=== PATIENT | male | born 1955 | race Caucasian/White ===

== ENCOUNTER 2017-01-02 20:00 | Inpatient (IN) | payer MEDICARE ==
[~2017-01-02] VITALS: Ht 177.8 cm; Wt 105.0 kg
[~2017-01-02 20:00] MED LIST: APIX5TAB PO; ASPI325T PO; CARV3.12 PO; CLON0.5T PO; DULO60 PO; FERR324T4 PO; FURO1TAB93 PO; LISI-357 PO; METF500 PO; MULT-65 PO; NITR0.4S SL; OMEG5CAP PO; PIOG45TA3 PO; SIMV40 PO; SPIR25TA PO
[2017-01-02 20:11] VITALS: BP 113/66; PULSE 81; RESP 20; TEMP 97.9; O2SAT 97
--- NOTE | 2017-01-02 20:38 | PD ---
HPI Chief Complaint: Respiratory Symptoms Time Seen by Provider: 20:32 Travel History International Travel<30 days: No Contact w/Intl Traveler<30days: No Traveled to known affect area: No History of Present Illness HPI 61-year-old male complains of shortness of breath for about 3-4 days associated with dyspnea on exertion and orthopnea. He also reports wheezing. He has COPD and CHF. He takes Lasix 80 mg and spironolactone 40 mg daily. He reports strict compliance with medications as well as dietary guidelines and water restriction. He notes some redness along the left foot. Previously a similar redness appeared on the right foot however resolved spontaneously. He follows with Dr. Lois salazar and Dr. Lerner. He has had a CABG. He also has diabetes hypertension and hyperlipidemia. Six months ago he quite smoking and started vaping instead. PFSH Past Medical History Hx Anticoagulant Therapy: Yes (ASA) Asthma: No Atrial Fibrillation: Yes Blood Disorders: No Anxiety: Yes Depression: Yes Heart Rhythm Problems: Yes (HX OF V TACH WITH CARDIAC CATHS REQUIRING LIDOCAINE ) Cancer: No Cardiovascular Problems: Yes (CHF, AFIB ) High Cholesterol: Yes Chemotherapy: No Chest Pain: Yes Congestive Heart Failure: Yes COPD: No Cerebrovascular Accident: No Coronary Artery Disease: Yes Diabetes: Yes Endocrine: Yes (DIABETES) Gastrointestinal Disorders: Yes (GERD) GERD: No Glaucoma: No Genitourinary: No Hepatitis: No Hiatal Hernia: No Hypertension: Yes Immune Disorder: No Musculoskeletal: No Neurologic: No Psychiatric: Yes Respiratory: No Migraines: No Myocardial Infarction: Yes Radiation Therapy: No Renal Failure: No Seizures: No Sleep Apnea: No Thyroid Disease: No Ulcer: No Past Surgical History Abdominal Surgery: No AICD: No Arteriovenous Shunt: No Body Medical Devices: CARDIAC STENTS , current BIV ICD Cardiac Surgery: Yes (CABG x4 2000, STENTS X3 2005, STENTS X'S 1 2006 AND 2010) Coronary Artery Bypass Graft: Yes (QUAD) Coronary Stent: Yes (X 7) Ear Surgery: No Endocrine Surgery: No Eye Surgery: No Genitourinary Surgery: No Insulin Pump: No Joint Replacement: No Oral Surgery: Yes (TEETH REMOVED) Pacemaker: No Thoracic Surgery: Yes (CABG "02") Other Surgery: Yes Social History Alcohol Use: No Tobacco Use: Yes (1 PPD; STATES RECENTLY QUIT) Substance Use: No Allergies-Medications (Allergen,Severity, Reaction): Coded Allergies: Flexeril (Verified Allergy, Severe, Flushing, 01/02/17) REDNESS Lisinopril (Verified Allergy, Unknown, Swelling, 01/02/17) ANGIOEDEMA Reported Meds & Prescriptions Reported Meds & Active Scripts Active Reported Nitrostat SL (Nitroglycerin) 0.4 Mg Subl 0.4 Mg SL DIRECTED PRN 1 tablet under the tongue as needed for chest pain. Repeat every 5 minutes for a total of 3 DOSES or call 911 if NO relief. Clonazepam 0.5 Mg Tab 0.5 Mg PO BID Levothyroxine (Levothyroxine Sodium) 25 Mcg Tab 25 Mcg PO DAILY Aldactone (Spironolactone) 25 Mg Tab 25 Mg PO BIDPC Gabapentin 100 Mg Cap 100 Mg PO QID Carvedilol 6.25 Mg Tab 6.25 Mg PO DAILY Glipizide 5 Mg Tab 5 Mg PO DAILY Take 30 minutes before a meal Krill Oil 500 Mg Capsule 500 Mg PO DAILY Multivitamins (Multivitamin) 1 Each Tab.chew 1 Tab PO DAILY Aspirin 325 Mg Tab 325 Mg PO DAILY Ferosul (Ferrous Sulfate) 325 Mg Tablet 1 Tab PO BID Furosemide 40 Mg Tab 40 Mg PO BID Citalopram (Citalopram Hydrobromide) 40 Mg Tab 40 Mg PO DAILY Zocor (Simvastatin) 40 Mg Tab 40 Mg PO DAILY Pioglitazone (Pioglitazone HCl) 45 Mg Tab 45 Mg PO DAILY Losartan (Losartan Potassium) 25 Mg Tab 25 Mg PO DAILY Metformin (Metformin HCl) 500 Mg Tab 500 Mg PO TIDPC With meals Review of Systems Except as stated in HPI: all other systems reviewed are Neg General / Constitutional: No: Fever Respiratory: Positive: Shortness of Breath, Wheezing Physical Exam Narrative GENERAL: Well-nourished 61-year-old male, mild distress SKIN: Warm and dry. Minimal erythema about the dorsum and toes of the left foot. There is minimal erythema about the surgical incision site from vein harvesting from a CABG surgery along the left lower leg as well. HEAD: Atraumatic. Normocephalic. EYES: Pupils equal and round. No scleral icterus. No injection or drainage. ENT: No nasal bleeding or discharge. Mucous membranes pink and moist. NECK: Trachea midline. No JVD. CARDIOVASCULAR: Regular rate and rhythm. RESPIRATORY: Minimal tachypnea present bilaterally. Wheezing present bilaterally. GASTROINTESTINAL: Abdomen soft, non-tender, nondistended. Hepatic and splenic margins not palpable. MUSCULOSKELETAL: Extremities without clubbing, cyanosis minimal edema about the bilateral lower extremities with erythema on the left side. 2+ dorsalis pedis bilaterally. NEUROLOGICAL: Awake and alert. No obvious cranial nerve deficits. Motor grossly within normal limits. Five out of 5 muscle strength in the arms and legs. Normal speech. PSYCHIATRIC: Appropriate mood and affect; insight and judgment normal. Data Data Last Documented VS Vital Signs Date Time Temp Pulse Resp B/P Pulse Ox O2 Delivery O2 Flow Rate FiO2 01/02/17 21:51 98.5 75 20 105/67 98 Nasal Cannula 2 Vital signs reviewed Orders Complete Blood Count With Diff (01/02/17 20:37) Basic Metabolic Panel (Bmp) (01/02/17 20:37) B-Type Natriuretic Peptide (01/02/17 20:37) Ckmb (Isoenzyme) Profile (01/02/17 20:37) Troponin I (01/02/17 20:37) Iv Access Insert/Monitor (01/02/17 20:37) Electrocardiogram (01/02/17 20:37) Ecg Monitoring (01/02/17 20:37) Oximetry (01/02/17 20:37) Oxygen Administration (01/02/17 20:37) Chest, Single Ap (01/02/17 20:37) Sodium Chloride 0.9% Flush (Ns Flush) (01/02/17 20:45) Albuterol-Ipratropium Neb (Duoneb Neb) (01/02/17 20:45) Blood Culture (01/02/17 21:29) Ceftriaxone Inj (Rocephin Inj) (01/02/17 21:30) Azithromycin Inj (Zithromax Inj) (01/02/17 21:30) Furosemide Inj (Lasix Inj) (01/02/17 21:30) Vancomycin Inj (Vancomycin Inj) (01/02/17 21:45) Us Leg Venous Doppler Bilat (01/02/17 ) Admit To Inpatient (01/02/17 ) Vital Signs (Adult) Q4H (01/02/17 21:46) Activity Oob With Assistance (01/02/17 21:46) Full Decator Operator / Telemetry .CONTINUOUS (01/02/17 21:46) Intake + Output SHREE.QSHIFT (01/02/17 21:46) Diet Heart Healthy (01/03/17 Breakfast) Sodium Chloride 0.9% Flush (Ns Flush) (01/02/17 22:00) Sodium Chloride 0.9% Flush (Ns Flush) (01/03/17 09:00) Basic Metabolic Panel (Bmp) (01/03/17 06:00) Complete Blood Count With Diff (01/03/17 06:00) Creatine Kinase (Cpk) (01/03/17 02:00) Creatine Kinase (Cpk) (01/03/17 08:00) Troponin I (01/03/17 02:00) Troponin I (01/03/17 08:00) Electrocardiogram (01/03/17 02:00) Electrocardiogram (01/03/17 08:00) Naloxone Inj (Narcan Inj) (01/02/17 22:00) Inpatient Certification (01/02/17 ) Levofloxacin (Levaquin) (01/02/17 22:00) ^ Watch For Or Notify (01/02/17 21:50) Heparin Infusion SHREE.Q1H (01/02/17 21:49) Heparin Inj (Heparin Inj) (01/03/17 04:00) Heparin Inj (Heparin Inj) (01/03/17 04:00) Heparin-D5w Inj (Heparin-D5w Inj) (01/02/17 22:00) Act Partial Throm Time (Ptt) (01/02/17 21:49) Prothrombin Time / Inr (Pt) (01/02/17 21:49) Cbc No Diff, Includes Plts (01/05/17 06:00) Act Partial Throm Time (Ptt) (01/03/17 04:49) Occult Blood (Hemoccult) Stool (01/02/17 21:49) Admit Order (Ed Use Only) (01/02/17 21:49) Labs Laboratory Tests Test 01/02/17 20:35 White Blood Count 14.4 TH/MM3 Red Blood Count 3.69 MIL/MM3 Hemoglobin 10.9 GM/DL Hematocrit 32.2 % Mean Corpuscular Volume 87.2 FL Mean Corpuscular Hemoglobin 29.7 PG Mean Corpuscular Hemoglobin 34.0 % Concent Red Cell Distribution Width 14.1 % Platelet Count 273 TH/MM3 Mean Platelet Volume 7.4 FL Neutrophils (%) (Auto) 77.8 % Lymphocytes (%) (Auto) 12.0 % Monocytes (%) (Auto) 7.2 % Eosinophils (%) (Auto) 1.2 % Basophils (%) (Auto) 1.8 % Neutrophils # (Auto) 11.2 TH/MM3 Lymphocytes # (Auto) 1.7 TH/MM3 Monocytes # (Auto) 1.0 TH/MM3 Eosinophils # (Auto) 0.2 TH/MM3 Basophils # (Auto) 0.3 TH/MM3 CBC Comment DIFF FINAL Differential Comment Sodium Level 129 MEQ/L Potassium Level 3.9 MEQ/L Chloride Level 94 MEQ/L Carbon Dioxide Level 23.9 MEQ/L Anion Gap 11 MEQ/L Blood Urea Nitrogen 32 MG/DL Creatinine 1.50 MG/DL Estimat Glomerular Filtration 48 ML/MIN Rate Random Glucose 140 MG/DL Calcium Level 9.0 MG/DL Total Creatine Kinase 76 U/L Troponin I 0.78 NG/ML B-Type Natriuretic Peptide 793 PG/ML MDM Medical Decision Making Medical Screen Exam Complete: Yes Emergency Medical Condition: Yes Medical Record Reviewed: Yes Differential Diagnosis CHF, exacerbation and pneumonia, COPD, acute coronary syndrome, renal failure, DVT Narrative Course CBC & BMP Diagram 01/02/17 20:35 Troponin 0.78 BNP 790 INR 1.2 EKG: Paced rhythm Last 24 hours Impressions Chest X-Ray 01/02/172036 Signed Impressions: Service Date/Time: Monday, January 02, 2017 20:56 - CONCLUSION: Cardiomegaly and diffuse increased interstitial markings likely related to CHF. There is further atelectasis, consolidation or effusion seen at the left base silhouetting the left hemidiaphragm. Justus Murray MD Lasix 40mg IV Abx started, blood cultures drawn d/w Dr Clifton: send to [facility], start heparin d/w Dr Hyatt: [facility] admission, LE Doppler study added Significant improvement noted after nebulizer treatments Critical Care Narrative Aggregate critical care time was 35 minutes. Time to perform other separately billable procedures was not included in the critical care time. My time did not include minutes spent treating any other patients simultaneously or on activities that did not directly contribute to the patient's treatment. The services I provided to this patient were to treat and/or prevent clinically significant deterioration that could result in: Cardiopulmonary arrest, intubation I provided critical care services requiring my management, as noted below: Chart data review, documentation time, medication orders and management, vital sign assessments/reviewing monitor data, ordering and reviewing lab tests, ordering and interpreting/reviewing x-rays and diagnostic studies, care of the patient and discussion of the patient with the admitting physicians. Diagnosis Primary Impression: CHF (congestive heart failure) Qualified Code: I50.9 - Congestive heart failure, unspecified congestive heart failure chronicity, unspecified congestive heart failure type Additional Impression: Elevated troponin Admitting Information Admitting Physician Requests: Kwame Grewal MD Jan 02, 2017 20:38
[2017-01-02 20:40] VITALS: BP_SYST 117; BP_SYST 123; BP_DIAS 70; BP_DIAS 75; PULSE 76; O2SAT 96
[2017-01-02] MEDS ORDERED: SODIUM CHLORIDE 0.9% FLUSH 10 ML FLUSH IVF PRN (20:45)
[2017-01-02] MEDS: RESP: ALBUTEROL 2.5 MG/IPRATROPIUM 0.5 MG NEB (SCH) INH ×2 (20:47→20:56)
[2017-01-02 20:51] LABS: AUTOMATED NEUTROPHIL # 11.2 TH/MM3 (1.8-7.7); BASOPHIL # 0.3 TH/MM3 (0-0.2); BASOPHIL % 1.8 % (0.0-2.0); EOSINOPHIL # 0.2 TH/MM3 (0-0.4); EOSINOPHIL % 1.2 % (0.0-4.0); HEMATOCRIT 32.2 % (39.0-51.0); LYMPHOCYTE # 1.7 TH/MM3 (1.0-4.8); MEAN CELL VOLUME 87.2 FL (80.0-100.0); MEAN CORPUSCULAR HEMOGLOBIN 29.7 PG (27.0-34.0); MONO % 7.2 % (0.0-8.0); NEUT % 77.8 % (16.0-70.0); PLATELET COUNT 273 TH/MM3 (150-450); RED BLOOD COUNT 3.69 MIL/MM3 (4.50-5.90); RED CELL DISTRIBUTION WIDTH 14.1 % (11.6-17.2); WHITE BLOOD COUNT 14.4 TH/MM3 (4.0-11.0)
[2017-01-02 20:53] LABS: HEMO FLAGS DIFF FINAL
[2017-01-02] MEDS ORDERED: GLIP5TAB8 PO (20:55)
[2017-01-02] MEDS ORDERED: LEVO25TA4 PO (20:55)
[2017-01-02] MEDS ORDERED: ZOCO40TA PO (20:55)
[2017-01-02] MEDS ORDERED: METF500T PO (20:55)
[2017-01-02] MEDS ORDERED: CARV6.252 PO (20:55)
[2017-01-02] MEDS ORDERED: GABA100C4 PO (20:55)
[2017-01-02] MEDS ORDERED: CITA40TA4 PO (20:55)
[2017-01-02] MEDS ORDERED: KRIL500C2 PO (20:55)
[2017-01-02] MEDS ORDERED: MULT-159 PO (20:55)
[2017-01-02] MEDS ORDERED: LOSA25TA PO (20:55)
[2017-01-02] MEDS ORDERED: CLON0.5T PO (20:55)
[2017-01-02] MEDS ORDERED: ASPI325T PO (20:55)
[2017-01-02] MEDS ORDERED: SPIR25 PO (20:55)
[2017-01-02] MEDS ORDERED: FURO40TA PO (20:55)
[2017-01-02] MEDS ORDERED: FERR325T20 PO (20:55)
[2017-01-02] MEDS ORDERED: PIOG45TA3 PO (20:55)
[2017-01-02] MEDS ORDERED: NITR0.4S SL (20:55)
[2017-01-02 21:03] LABS: POTASSIUM 3.9 MEQ/L (3.5-5.1)
[2017-01-02 21:06] LABS: BICARBONATE 23.9 MEQ/L (21.0-32.0)
[2017-01-02] MEDS ORDERED: FUROSEMIDE 40 MG/4 ML VIAL IV PUSH ONE (21:30)
[2017-01-02] MEDS ORDERED: cefTRIAXone INJ 1,000 MG in SODIUM CHLORIDE 0.9% INJ 100 ML IV ONE (21:30)
[2017-01-02] MEDS ORDERED: AZITHROMYCIN INJ 500 MG in SODIUM CHLOR 0.9% 250 ML INJ 250 ML IV ONE (21:30)
--- NOTE | 2017-01-02 21:44 | RADRPT ---
EXAM DATE/TIME: 01/02/2017 20:56 [facility] COMPARISON: CHEST SINGLE AP, December 02, 2015, 14:56. INDICATIONS : Shortness of breath. MEDICAL HISTORY : Myocardial infarction. Congestive heart failure. Diabetes mellitus type II. SURGICAL HISTORY : CABG. Pacemaker. ENCOUNTER: Initial ACUITY: 2 weeks PAIN SCORE: 0/10 LOCATION: Bilateral chest FINDINGS: The patient is status post sternotomy. There is a pacing device in place from the left subclavian tony davila. The heart size is enlarged. The lungs demonstrate diffuse increased interstitial markings. The re is further increased density at the left base with silhouetting of the left hemidiaphragm. Old hea led right rib fractures are seen. CONCLUSION: Cardiomegaly and diffuse increased interstitial markings likely related to CHF. There is further atel ectasis, consolidation or effusion seen at the left base silhouetting the left hemidiaphragm. Justus Murray MD on January 02, 2017 at 21:39 Board Certified Radiologist. This report was verified electronically.
[2017-01-02] MEDS ORDERED: VANCOMYCIN INJ 1,750 MG in SODIUM CHLORID 0.9% 500 ML INJ 500 ML IV ONE (21:45)
[2017-01-02 21:51] VITALS: BP 105/67; PULSE 75; RESP 20; TEMP 98.5; O2SAT 98
[2017-01-02] MEDS ORDERED: SODIUM CHLORIDE 0.9% FLUSH 10 ML FLUSH IV FLUSH PRN (22:00)
[2017-01-02] MEDS ORDERED: NALOXONE HCL 0.4 MG/ML AMP IV PRN (22:00)
[2017-01-02] MEDS ORDERED: LEVOFLOXACIN 750 MG TAB PO ONE (22:00)
[2017-01-02] MEDS ORDERED: HEPARIN-D5W INJ 250 ML IV SCH (22:00)
[2017-01-02] MEDS ORDERED: ACETAMINOPHEN 325 MG TAB PO ONE (22:30)
[2017-01-02 22:47] LABS: APTT (PATIENT) 31.4 SEC (24.3-30.1); INTERNATIONAL NORMALIZED RATIO 1.2 RATIO; PROTHROMBIN TIME - PATIENT 13.5 SEC (9.8-11.6)
--- NOTE | 2017-01-02 23:05 | RADRPT ---
EXAM DATE/TIME: 01/02/2017 22:28 [facility] COMPARISON: No previous studies available for comparison. INDICATIONS : Bilateral leg swelling and pain. MEDICAL HISTORY : Congestive heart failure. Myocardial infarction. Hypercholesterolemia. Afib. CAD. Chest pain. HTN. Dy spnea. GERD. Diabetes. Blood dyscrasias. Depression. Anxiety. Anticoagulant therapy, Aspirin 325mg. SURGICAL HISTORY : CABGCoronary artery stent. Cardiac cath. ENCOUNTER: Initial ACUITY: 3 days PAIN SCORE: 8/10 LOCATION: Bilateral leg. TECHNIQUE: Venous ultrasound of the left and right leg was performed from the inguinal ligament to the proximal calf. Real-time, color Doppler and spectral tracing, compression and augmentation techniques were us ed. FINDINGS: RIGHT LEG: There is normal compressibility of the deep venous system from the inguinal region to the proximal ca lf. No echogenic clot is seen in the lumen of the common femoral, femoral, popliteal, and posterior tibial veins. There is a normal response of the venous system to proximal and distal augmentation an d respiration. There is a 4.5 x 0.8 x 2.3 cm cystic mass in the popliteal fossa region on the right. LEFT LEG: There is normal compressibility of the deep venous system from the inguinal region to the proximal ca lf. No echogenic clot is seen in the lumen of the common femoral, femoral, popliteal, and posterior tibial veins. There is a normal response of the venous system to proximal and distal augmentation an d respiration. CONCLUSION: 1. No DVT. 2. Suspected Aguirre's cyst on the right side. Justus Murray MD on January 02, 2017 at 23:02 Board Certified Radiologist. This report was verified electronically.
[2017-01-02 23:12] VITALS: BP 116/58
[2017-01-03] VITALS (21 sets, daily range): BP systolic 92–140; BP diastolic 58–73; PULSE 61–90; RESP 18–37; TEMP 97.3–98.2; O2SAT 91–99
[2017-01-03] MEDS ORDERED: CHLORHEXIDINE GLUCONATE 2 % 1 PACK (2 CLOTHS) TOP PRN (00:30)
[2017-01-03] MEDS ORDERED: MISCELLANEOUS NURSING INFORMATION XX SCH (00:30)
--- NOTE | 2017-01-03 01:20 | HHI.HP ---
[facility]Staff Ad[facility] Diagnosis CHF, Elevated Tn, RLE Erythema Diagnoses: Chief Complaint: left foot pain, swelling and difficulty breathing Travel History International Travel<30 Days: No Contact w/Intl Traveler <30 Da: No Traveled to Known Affected Are: No History of Present Illness Written by Esmer Tyson, acting as scribe for Dr. Hyatt on 01/03/17 at 01:20. Mr. Ovalle states that he presented to the [facility] for evaluation on 01/02/17 o left foot swelling and redness; he also states he was having difficulty breathing. He was transferred to the main butler here in [place] for possible cath due to elevated troponin I. Complains of new onset of erythema in left medial venous graft incision (from CABG) which was previously healed. Chest pain with exertion for the past 5 days and when lying down flat, he reports that he has chest pain and takes nitroglycerin and it gets better. Chest pain does not radiate. Described as severe pressure on the chest. Denies missing any doses of any medications. May have ingested more fluids than normal recently. Denies fever, n/v/d, or red stool. Black stool on iron. . Review of Systems Except as stated in HPI: all other systems reviewed are Neg Past Family Social History Past Medical History CHF AICD/pacemaker atrial fibrillation s/p ablation Type 2 diabetes mellitus Hypothyroidism CAD s/p CABG neuropathy Restless leg syndrome ?leukemia in childhood? Has a blood dyscrasia - has seen Dr. Rizzo Denies COPD/asthma/emphysema, hypertension, liver/kidney problems, DVT, PE, CVA , cancers, seizures, or prostate issues . Past Surgical History AICD/pacemaker implantation CABG . Reported Medications Reported Meds & Active Scripts Active Reported Nitrostat SL (Nitroglycerin) 0.4 Mg Subl 0.4 Mg SL DIRECTED PRN 1 tablet under the tongue as needed for chest pain. Repeat every 5 minutes for a total of 3 DOSES or call 911 if NO relief. Clonazepam 0.5 Mg Tab 0.5 Mg PO BID Levothyroxine (Levothyroxine Sodium) 25 Mcg Tab 25 Mcg PO DAILY Aldactone (Spironolactone) 25 Mg Tab 25 Mg PO BIDPC Gabapentin 100 Mg Cap 100 Mg PO QID Carvedilol 6.25 Mg Tab 6.25 Mg PO DAILY Glipizide 5 Mg Tab 5 Mg PO DAILY Take 30 minutes before a meal Krill Oil 500 Mg Capsule 500 Mg PO DAILY Multivitamins (Multivitamin) 1 Each Tab.chew 1 Tab PO DAILY Aspirin 325 Mg Tab 325 Mg PO DAILY Ferosul (Ferrous Sulfate) 325 Mg Tablet 1 Tab PO BID Furosemide 40 Mg Tab 40 Mg PO BID Citalopram (Citalopram Hydrobromide) 40 Mg Tab 40 Mg PO DAILY Zocor (Simvastatin) 40 Mg Tab 40 Mg PO DAILY Pioglitazone (Pioglitazone HCl) 45 Mg Tab 45 Mg PO DAILY Losartan (Losartan Potassium) 25 Mg Tab 25 Mg PO DAILY Metformin (Metformin HCl) 500 Mg Tab 500 Mg PO TIDPC With meals . Allergies: Coded Allergies: Flexeril (Verified Allergy, Severe, Flushing, 01/02/17) REDNESS Lisinopril (Verified Allergy, Unknown, Swelling, 01/02/17) ANGIOEDEMA Active Ordered Medications Current Medications Sodium Chloride (NS Flush) 2 ml UNSCH PRN IVF FLUSH AFTER USING IV ACCESS; Start 01/02/17 at 20:45; Stop 01/02/17 at 21:51; Status DC Albuterol/ Ipratropium 1 ampule 1 ampule Q15M INH Last administered on 20:56; Start 01/02/17 at 20:45; Stop 01/02/17 at 21:01; Status DC Ceftriaxone Sodium 1000 mg/ Sodium Chloride 100 ml @ 200 mls/hr ONCE ONCE IV Last administered on 01/02/17 21:49; Start 01/02/17 at 21:30; Stop 01/02/17 at 21:50; Status DC Azithromycin/ Sodium Chloride (Zithromax Inj/ NS 250 ml Inj) 250 ml @ 250 mls/ hr ONCE ONCE IV ; Start 01/02/17 at 21:30; Stop 01/02/17 at 21:50; Status DC Furosemide 40 mg 40 mg ONCE ONCE IV PUSH Last administered on 01/02/17 21:46 ; Start 01/02/17 at 21:30; Stop 01/02/17 at 21:32; Status DC Vancomycin HCl/ Sodium Chloride (Vancomycin Inj/ NS 500 ml Inj) 517.5 ml @ 258.75 mls/ hr ONCE ONCE IV ; Start 01/02/17 at 21:45; Stop 01/02/17 at 21:50; Status DC Sodium Chloride (NS Flush) 2 ml UNSCH PRN IV FLUSH FLUSH AFTER USING IV ACCESS ; Start 01/02/17 at 22:00 Sodium Chloride (NS Flush) 2 ml BID IV FLUSH ; Start 01/03/17 at 09:00 Naloxone HCl (Narcan Inj) 0.4 mg UNSCH PRN IV SEE LABEL COMMENTS; Start at 22:00 Levofloxacin (Levaquin) 750 mg ONCE ONCE PO Last administered on 01/02/17 22: 20; Start 01/02/17 at 22:00; Stop 01/02/17 at 22:01; Status DC Heparin Sodium (Porcine) (Heparin Inj) 5,000 units UNSCH PRN IV APTT LESS THAN 25; Start 01/03/17 at 04:00 Heparin Sodium (Porcine) 2500 units 2,500 units UNSCH PRN IV APTT 25 TO 39; Start 01/03/17 at 04:00 Heparin Sodium/ Dextrose (Heparin-D5W Inj) 250 ml @ 0 mls/hr TITRATE IV Last administered on 01/02/17 22:24; Start 01/02/17 at 22:00 Acetaminophen (Tylenol) 650 mg ONCE ONCE PO Last administered on 01/02/17 22: 46; Start 01/02/17 at 22:30; Stop 01/02/17 at 22:31; Status DC Miscellaneous Information 1 Q361D XX ; Start 01/03/17 at 00:30 Chlorhexidine Gluconate (Chlorhexidine 2% Cloth) 3 pack Taper DAILY@04 TOP ; Start 01/03/17 at 04:00; Stop 12/30/17 at 03:59 Chlorhexidine Gluconate (Chlorhexidine 2% Cloth) 3 pack UNSCH PRN TOP HYGIENIC CARE; Start 01/03/17 at 00:30 . Family History Brother with lung CA Sister with throat CA CAD and DM in family . Social History Tobacco: smoked up to 6 months ago; now uses vaporizer Alcohol: denies Illicit Drugs: denies . Physical Exam Vital Signs Vital Signs Date Time Temp Pulse Resp B/P Pulse Ox O2 Delivery O2 Flow Rate FiO2 01/02/17 23:12 77 18 116/58 98 Nasal Cannula 2 01/02/17 21:51 98.5 75 20 105/67 98 Nasal Cannula 2 01/02/17 20:50 Aerosol Mask 01/02/17 20:40 76 123/75 96 Nasal Cannula 2 117/70 01/02/17 20:32 20 96 Nasal Cannula 2 01/02/17 20:11 97.9 81 20 113/66 97 Physical Exam GENERAL: This is a pleasant older male patient, in no apparent distress. SKIN: No rashes, ecchymoses. Cool and dry. Erythema noted at left lower leg incision site for vein graft harvest; some mild pedal erythema. HEAD: Atraumatic. Normocephalic. EYES: No scleral icterus. No injection or drainage. ENT: Nose without bleeding, purulent drainage. NECK: Trachea midline. No JVD. CARDIOVASCULAR: Regular rate and rhythm without murmurs, gallops, or rubs. 2+ pedal edema. RESPIRATORY: Breath sounds with bibasilar rales; equal bilaterally. No wheezes or rhonchi. GASTROINTESTINAL: Abdomen soft, non-tender, nondistended. No guarding. MUSCULOSKELETAL: Extremities without clubbing, cyanosis. No calf tenderness. NEUROLOGICAL: Awake and alert. Motor and sensory grossly within normal limits. Normal speech. . Laboratory Laboratory Tests Test 01/02/17 20:35 White Blood Count 14.4 Red Blood Count 3.69 Hemoglobin 10.9 Hematocrit 32.2 Mean Corpuscular Volume 87.2 Mean Corpuscular Hemoglobin 29.7 Mean Corpuscular Hemoglobin 34.0 Concent Red Cell Distribution Width 14.1 Platelet Count 273 Mean Platelet Volume 7.4 Neutrophils (%) (Auto) 77.8 Lymphocytes (%) (Auto) 12.0 Monocytes (%) (Auto) 7.2 Eosinophils (%) (Auto) 1.2 Basophils (%) (Auto) 1.8 Neutrophils # (Auto) 11.2 Lymphocytes # (Auto) 1.7 Monocytes # (Auto) 1.0 Eosinophils # (Auto) 0.2 Basophils # (Auto) 0.3 CBC Comment DIFF FINAL Differential Comment Prothrombin Time 13.5 Prothromb Time International 1.2 Ratio Activated Partial 31.4 Thromboplast Time Sodium Level 129 Potassium Level 3.9 Chloride Level 94 Carbon Dioxide Level 23.9 Anion Gap 11 Blood Urea Nitrogen 32 Creatinine 1.50 Estimat Glomerular Filtration 48 Rate Random Glucose 140 Calcium Level 9.0 Total Creatine Kinase 76 Troponin I 0.78 B-Type Natriuretic Peptide 793 Date/Time Procedure Status Source Growth 01/02/17 21:45 Aerobic Blood Culture Received Blood Peripheral Pending 01/02/17 21:45 Anaerobic Blood Culture Received Blood Peripheral Pending Result Diagram: 01/02/17203401/02/172034 Imaging Last Impressions Chest X-Ray 01/02/172036 Signed Impressions: Service Date/Time: Monday, January 02, 2017 20:56 - CONCLUSION: Cardiomegaly and diffuse increased interstitial markings likely related to CHF. There is further atelectasis, consolidation or effusion seen at the left base silhouetting the left hemidiaphragm. Justus Murray MD Lower Extremity Ultrasound 01/02/17 0000 Signed Impressions: Service Date/Time: Monday, January 02, 2017 22:28 - CONCLUSION: 1. No DVT. 2. Suspected Aguirre's cyst on the right side. Justus Murray MD . Assessment and Plan Assessment and Plan Acute systolic CHF - BNP 793 - CXR with findings c/w CHF - IV Lasix given in ED - monitor I&Os closely - continuous cardiac telemetry - monitor for arrhythmias NSTEMI - Initial Troponin I is 0.78 - Heparin drip - consult cardiology - follows with Dr. Steele - possible cath in a.m.; will keep npo for now T2DM - accuchecks q4h - notify for BG < 70 or > 300 on two consecutive readings - hold diabetes medications for now while NPO - restart when diet ordered - hypoglycemia protocol - monitor trends in bp reading and adjust treatments as indicated Left lower extremity cellulitis, mild - WBC 14.4 with neutrophilia - blood cultures pending - Levaquin 750 mg p.o. q24h Acute renal insufficiency secondary to dehydration - BUN 32, Creatinine 1.50, and eGFR 48 - monitor closely - difficult to rehydrate given CHF - avoid nephrotoxins as much as possible DVT prophylaxis - on heparin gtt now . Discussed Condition With ER physician, RN, patient, and patient's . Physician Certification 2 Midnight Certification Type: Admission for Inpatient Services Order for Inpatient Services The services are ordered in accordance with Medicare regulations or non- Medicare payer requirements, as applicable. In the case of services not specified as inpatient-only, they are appropriately provided as inpatient services in accordance with the 2-midnight benchmark. Estimated LOS (days): 4 days is the estimated time the patient will need to remain in the hospital, assuming treatment plan goals are met and no additional complications. Post-Hospital Plan: Home Esmer Tyson Jan 03, 2017 01:20
[2017-01-03] MEDS ORDERED: GABAPENTIN 100 MG CAP PO ONE (01:30)
[2017-01-03] MEDS ORDERED: clonazePAM 0.5 MG TAB PO ONE (01:30)
[2017-01-03] MEDS: CHLORHEXIDINE GLUCONATE 2 % 1 PACK (2 CLOTHS) TOP SCH (02:00)
[2017-01-03] MEDS ORDERED: GLUCAGON 1 MG/ML VIAL OTHER PRN (02:15)
[2017-01-03] MEDS ORDERED: DEXTROSE 50% IN WATER 50 ML VIAL(D50) IV PRN (02:15)
[2017-01-03 03:19] LABS: APTT (PATIENT) 33.8 SEC (24.3-30.1)
[2017-01-03 03:26] LABS: AUTOMATED NEUTROPHIL # 9.6 TH/MM3 (1.8-7.7); BASOPHIL # 0.1 TH/MM3 (0-0.2); BASOPHIL % 0.8 % (0.0-2.0); EOSINOPHIL # 0.1 TH/MM3 (0-0.4); HEMATOCRIT 28.5 % (39.0-51.0); HEMO FLAGS DIFF FINAL; LYMPH % 12.2 % (9.0-44.0); LYMPHOCYTE # 1.5 TH/MM3 (1.0-4.8); MEAN CELL VOLUME 85.1 FL (80.0-100.0); MEAN CORPUSCULAR HEMOGLOBIN 28.5 PG (27.0-34.0); MEAN CORPUSCULAR HGB CONC 33.5 % (32.0-36.0); PLATELET COUNT 226 TH/MM3 (150-450); RED BLOOD COUNT 3.35 MIL/MM3 (4.50-5.90); RED CELL DISTRIBUTION WIDTH 14.8 % (11.6-17.2); WHITE BLOOD COUNT 12.2 TH/MM3 (4.0-11.0)
[2017-01-03] MEDS ORDERED: HEPARIN SODIUM - IV 10,000 UNITS/10 ML VIAL IV PRN ×2 (04:00)
[2017-01-03 04:25] LABS: BICARBONATE 24.9 MEQ/L (21.0-32.0); POTASSIUM 4.1 MEQ/L (3.5-5.1)
[2017-01-03] MEDS: LEVOTHYROXINE SODIUM 25 MCG TAB PO SCH (06:27)
[2017-01-03] MEDS: SODIUM CHLORIDE 0.9% FLUSH 10 ML FLUSH IV FLUSH SCH ×2 (07:45→19:23)
[2017-01-03] MEDS: GABAPENTIN 100 MG CAP PO SCH ×4 (07:46→21:03)
[2017-01-03] MEDS: CARVEDILOL 6.25 MG TAB PO SCH (07:46)
[2017-01-03] MEDS: clonazePAM 0.5 MG TAB PO SCH ×2 (07:46→19:22)
[2017-01-03] MEDS: SPIRONOLACTONE 25 MG TAB PO SCH ×2 (07:46→19:22)
[2017-01-03] MEDS: FERROUS SULFATE 325 MG (65 MG ELEMENTAL IRON) TAB PO SCH ×2 (07:46→19:22)
[2017-01-03] MEDS: FUROSEMIDE 40 MG TAB PO SCH ×2 (07:46→19:22)
[2017-01-03] MEDS: LOSARTAN 25 MG TAB PO SCH (08:08)
[2017-01-03] MEDS: CITALOPRAM HYDROBROMIDE 40 MG TAB PO SCH (08:08)
[2017-01-03] MEDS ORDERED: PRAVASTATIN SOD 40 MG TAB PO SCH (09:00)
[2017-01-03] MEDS ORDERED: ASPIRIN 325 MG TAB PO SCH (09:00)
--- NOTE | 2017-01-03 09:59 | HHI.PR ---
Subjective Remarks Follow-up non-ST elevation KS, CHF, cellulitis. Patient denies chest pain or dyspnea today. Is having some pain in his left foot. States that the redness started about a week ago. He had redness in the right foot about a month ago, but that resolved on its own. Objective Vitals Vital Signs Date Time Temp Pulse Resp B/P Pulse Ox O2 Delivery O2 Flow Rate FiO2 01/03/17 06:00 69 01/03/17 05:30 68 01/03/17 05:00 69 01/03/17 04:30 71 32 97/61 97 01/03/17 04:30 71 01/03/17 04:00 98.1 74 30 99/65 96 01/03/17 04:00 74 01/03/17 03:30 72 30 108/58 95 01/03/17 03:30 72 01/03/17 03:00 73 01/03/17 03:00 73 37 105/66 96 01/03/17 02:31 70 01/03/17 02:00 67 28 102/67 98 01/03/17 02:00 67 01/03/17 01:30 72 23 113/59 97 01/03/17 01:30 72 01/03/17 01:00 71 01/03/17 01:00 71 24 112/67 98 01/03/17 00:30 74 01/03/17 00:30 74 28 100/58 98 01/03/17 00:01 75 01/03/17 00:01 75 25 92/58 98 01/03/17 00:00 77 01/03/17 00:00 98.0 77 24 98 01/02/17 23:12 77 18 116/58 98 Nasal Cannula 2 01/02/17 21:51 98.5 75 20 105/67 98 Nasal Cannula 2 01/02/17 20:50 Aerosol Mask 01/02/17 20:40 76 123/75 96 Nasal Cannula 2 117/70 01/02/17 20:32 20 96 Nasal Cannula 2 01/02/17 20:11 97.9 81 20 113/66 97 I/O 01/02/17 01/02/17 01/02/17 01/03/17 01/03/17 01/03/17 07:00 15:00 23:00 07:00 15:00 23:00 Intake Total 100 ml 66 ml Output Total 700 ml 665 ml Balance -600 ml -599 ml Intake IV Total 100 ml 66 ml Output Urine Total 700 ml 665 ml # Voids 1 Result Diagram: 01/03/174 01/03/174 Imaging Last Impressions Chest X-Ray 01/02/172036 Signed Impressions: Service Date/Time: Monday, January 02, 2017 20:56 - CONCLUSION: Cardiomegaly and diffuse increased interstitial markings likely related to CHF. There is further atelectasis, consolidation or effusion seen at the left base silhouetting the left hemidiaphragm. Justus Murray MD Lower Extremity Ultrasound 01/02/17 0000 Signed Impressions: Service Date/Time: Monday, January 02, 2017 22:28 - CONCLUSION: 1. No DVT. 2. Suspected Aguirre's cyst on the right side. Justus Murray MD Objective Remarks General: No acute distress. Sitting up in a chair. Heart: Regular rate and rhythm. No murmur. Lungs: Clear to auscultation bilaterally. No wheezes, rales, or rhonchi. Breathing is nonlabored. Abdomen: Soft, nontender, nondistended. Extremities: 1+ bilateral lower extremity edema. Left foot with erythema of the dorsal surface of the midfoot. There is also erythema medially along the left calf. Psych: Alert and oriented. Urinary Catheter: No Vascular Central Line Catheter: No A/P Problem List: (1) Non-ST elevation KS (NSTEMI) ICD Code: I21.4 Status: Acute (2) Elevated troponin ICD Code: R74.8 Status: Acute (3) Hypothyroidism ICD Code: E03.9 Status: Chronic (4) Hyperlipidemia ICD Code: E78.5 Status: Chronic (5) Diabetes mellitus ICD Code: E11.9 Status: Chronic (6) A-fib ICD Code: I48.91 Status: Chronic (7) Cellulitis ICD Code: L03.90 Status: Acute (8) Acute kidney injury ICD Code: N17.9 Status: Acute (9) Acute systolic (congestive) heart failure ICD Code: I50.21 Status: Acute Assessment and Plan 1. Non-ST elevation KS: Troponin elevated. Continue heparin drip. Cardiology consultation is pending. Patient nothing by mouth for possible catheterization. 2. Acute systolic congestive heart failure: Continue diuresis. Chest x-ray with findings consistent with CHF. BNP elevated. Monitor intake/output. 3. Diabetes mellitus type 2: Monitor Accu-Cheks and cover with sliding scale insulin. Diabetic medications on hold while patient is nothing by mouth. 4. Left lower extremity cellulitis: Continue antibiotics. 5. Acute kidney injury: Secondary to dehydration. Monitor BUN and creatinine. 6. DVT prophylaxis: Heparin drip. Wander Mtz MD Jan 03, 2017 09:59
[2017-01-03 12:34] LABS: APTT (PATIENT) 36.4 SEC (24.3-30.1)
[2017-01-03] MEDS ORDERED: MIDAZOLAM HCL 2 MG/2 ML VIAL ONE ×2 (16:56→17:50)
[2017-01-03] MEDS ORDERED: HEPARIN-NS/PF INJ 500 ML ONE (16:56)
[2017-01-03] MEDS ORDERED: IOHEXOL 350 MG/ML 100 ML BTL (for Cath Lab) OTHER ONE (17:15)
[2017-01-03] MEDS ORDERED: MIDAZOLAM HCL 2 MG/2 ML VIAL IV ONE (18:00)
[2017-01-03] MEDS ORDERED: HEPARIN SODIUM - IV 10,000 UNITS/10 ML VIAL IV ONE ×2 (18:00→18:30)
[2017-01-03] MEDS ORDERED: HEPARIN SODIUM - IV 10,000 UNITS/10 ML VIAL ONE (18:07)
[2017-01-03] MEDS ORDERED: TIROFIBAN BOLUS INJ 100 ML IV ONE (18:30)
[2017-01-03] MEDS ORDERED: TICAGRELOR 90 MG TAB PO ONE ×2 (18:30)
[2017-01-03] MEDS ORDERED: TIROFIBAN IV ONE (18:33)
[2017-01-03] MEDS ORDERED: SODIUM CHLOR 0.9% 1000 ML INJ 1,000 ML IV SCH (18:46)
--- NOTE | 2017-01-03 18:49 | CATHPROC ---
[facility] HIS Report Study Information Study Number Admission Scheduled Start Study Start [id number] Jan 02 2017 9:52PM 01/03/2017 Jan 03 2017 5:03PM [facility] Service Cardiac Catheterization Admit Source Facility Department Emergency department [facility] - Style Advisor Physician and Clinical Staff Initial Vy Eduardo Clam Grower Shiv Del Angel,MITESH Recorder Elio Andrews,RT(R) Scrub Malcolm Back RCIS(BS) Procedures Performed Procedure Location (Site) Vessel Name Angiogram LV LV Ventricle Coronary Angiograms LCA Left Coronary Coronary Angiograms RCA Right Coronary Coronary Angiograms SVG-OM CIRC Coronary Angiograms WHITTAKER WHITTAKER Drug Eluting Inflatio SVG-OM CIRC L Heart Cath PTCA SVG-OM CIRC Wire insertion Fem Art (right) Femoral Art Equipment Time Corporate Coordinator Description Size Mfg Part Number Used/Scraped WIRE, BALANCE MIDDLEWEIGHT [id number] 18:05 [employer]UNG [employer] 190CM Used 190CM *[id number] TRANSDUCER, TRUWAVE [id number] 17:06 MACIAS INGRAM * Used W/STOCKCOCK *[id number] *[id number] [id number] *[id number] 534-520T *[id number] [id number] *[id number] 18:25 DAIG/ST. LAURA MEDICAL ANGIOSEAL, FR6 VIP FR 6 Used *[id number] 17:06 MEDLINE INDUSTRIES PACK, CCL CUSTOM * Used *[id number] 17:06 LeadPoint PACER PEN, SKIN DUAL W/ RULER * Used *[id number] 18:12 MEDTRONIC BALLOON, 2.0 X 10MM EUPHORA 10MM Used *[id number] STENT, 2.5 8 RESOLUTE [id number] 18:19 MEDTRONIC 2.5 8 Used INTEGRITY RX *[id number] 18:16 NetPress Digital MEDICAL 30 JEANNA INDEFLATOR Used *[id number] 18:06 [employer] MEDICAL SHEATH, FR6.5 PRELUDE 11CM FR 6.5 038ACT Used *[id number] 17:06 MasCupon WIRE, 3MMJ .035 180CM 180CM Used *[id number] PROBE COVER, STERILE [id number] 17:06 Pre Play Sports MEDICAL * Used ULTRASOUND W/ GEL *[id number] 17:06 NAMIC MANIFOLD, 4 PORT * Used *[id number] 17:06 NAMIC TUBING, HIGH PRESSURE 48" 48" Used *[id number] 17:06 NYCOMED OMNIPAQUE, 350 MG, 150ML 150ML [id number] Used 17:57 NYCOMED OMNIPAQUE, 350 MG, 50ML 50ML [id number] Used [id number] 17:06 MILLAN MEDICAL BLANKET,WARM AIR CCL * Used *[id number] 17:06 TERUMO MEDICAL SHEATH, FR5 TERUMO (10CM) FR 5 [id number] Used Equipment Model, Serial, Lot Number and Expiration Data Description Model Number Serial Number Lot Number Expiration Date ANGIOSEAL, FR6 VIP [id number] 09-05-2017 SHEATH, FR6.5 PRELUDE 11CM [id number] 10-07-2019 STENT, 2.5 8 RESOLUTE [id number] 08-14-2018 INTEGRITY RX History: Current Medications Medication Dosage/Unit Route Frequency Last Date/Time Taken ASA History: Allergies Allergy Reaction No Known Allergies Flexeril Flushing Lisinopril Swelling History: Risk Factors Family History of Hypertension Dyslipidemia Previous IN Previous Heart Failure Premature CAD No No No Yes Yes Prior Valve Prior PCI Prior CABG Surgery No No Yes Cerebrovascular Peripheral Artery Chronic Lung On Dialysis Diabetes Diabetes Therapy Disease Disease Disease No No No No Yes Oral History: Symptoms/Diagnosis Selection Items Angina-unstable Chest pain History: CV Disease Selection Items Cardiomyopathy Known CAD History: Stress Tests Stress or Imaging Studies Performed No History: Other Disease Selection Items CAD History: Other Current Smoker No Labs Hgb (g/dl) Hct (%) RBC (MIL/MM3) WBC (l/cumm) Platelets (thousands) 11.60-17.00 35.00-51.00 4.00-5.90 4.00-11.00 150.00-450.00 9.5 28.5 3.3 12.2 226 Glucose (mg/dl) BUN (mg/dl) Creatinine (mg/dl) BUN:Creatinine (1:x) 74.00-106.00 7.00-18.00 0.50-1.30 10.00-20.00 165 30 1.3 23.1 Na (meq/l) K (meq/l) Cl (meq/l) CO2 (mmol/L) Ca (mg/dl) 136.00-145.00 3.50-5.10 98.00-107.00 21.00-32.00 8.50-10.10 131 4.1 94 24.9 8.8 ACT Pre (sec) 100.00-200.00 155 Troponin I (ng/ml) Troponin T (ng/ml) CPK-MB (ng/ML) 0.02-0.05 0.40-2.10 0.50-3.60 0.78 0.66 Not Drawn Medication Medication Total Dose (Bolus/Oral) Medication Total Dosage/Unit 1% XYLOCAINE 20 mL AGGRASTAT BOLUS 54 meq/kg BRILINTA 180 mg FENTANYL 50 mcg HEPARIN 9000 units NTG (IC) 100 mcg VERSED 2 mg Medications (Bolus/Oral) Medication Time Given Dosage/Unit Administered By Reason 1% XYLOCAINE 01/03/2017 5:52:28 PM 20 mL Vy Crowder 20 mL 1% XYLOCAINE given in lab by Vy Crowder in Right Groin via Subcutaneous. VERSED 01/03/2017 5:58:40 PM 2 mg Shiv Del Angel 2 mg VERSED given in lab by Shiv Del Angel RN in Right Antecubital via Peripheral IV. FENTANYL 01/03/2017 5:59:59 PM 50 mcg Shiv Del Angel 50 mcg FENTANYL given in lab by Shiv Del Angel RN in Right Antecubital via Peripheral IV. HEPARIN 01/03/2017 6:08:37 PM 6000 units Vy Crowder 6000 units HEPARIN given in lab by Vy Crowder in Right Antecubital via Peripheral IV. NTG (IC) 01/03/2017 6:18:30 PM 100 mcg Malcolm Back 100 mcg NTG (IC) given in lab by Malcolm Back RCIS(BS) via Intra-coronary. HEPARIN 01/03/2017 6:27:14 PM 3000 units Shiv Del Angel 3000 units HEPARIN given in lab by Shiv Del Angel RN in Right Antecubital via Peripheral IV. BRILINTA 01/03/2017 6:30:50 PM 180 mg Shiv Del Angel 180 mg BRILINTA given in lab by Shiv Del Angel RN via Oral. AGGRASTAT BOLUS 01/03/2017 6:33:44 PM 54 meq/kg Shiv Del Angel 54 meq/kg AGGRASTAT BOLUS given in lab by Shiv Del Angel, RN in Right Antecubital via Peripheral IV. Amount given = 5778 meq. Medication (Drip) Medication Time Given Dosage/Unit Concentration/Unit Diluent (ml) Solutio n IV Solutions 01/03/2017 5:26:44 PM 0 mL (IV) 500 NaCl .9 IV Solutions given in lab by Shiv Del Angel, RN in Right Antecubital via Peripheral IV. Pump/Drip Cl w = 20 ml/hr using NaCl .9. Initial Case Assessment Cardiovascular HR Rhythm NIBP Chest Pain 74 Sinus 104/71 0 Edema Present Skin color Skin None Normal Warm Dry Circulatory - Right Pulses Dorsalis Pedis Femoral d 1 Scale (0,1,2,3,4,d) Circulatory - Left Pulses Dorsalis Pedis Femoral d 1 Scale (0,1,2,3,4,d) Neurological State Oriented to time-place- Alert Moves all extremities person Respiration - General Respiration Rate SpO2 (%) O2 (lpm) (B/min) 21 96 0 Final Case Assessment Cardiovascular HR Rhythm NIBP Chest Pain 78 Sinus 105/70 0 Edema Present Skin color Skin None Normal Warm Dry Circulatory - Right Pulses Dorsalis Pedis Femoral d 1 Scale (0,1,2,3,4,d) Circulatory - Left Pulses Dorsalis Pedis Femoral d 1 Scale (0,1,2,3,4,d) Neurological State Oriented to time-place- Alert Moves all extremities person Respiration - General Respiration Rate SpO2 (%) O2 (lpm) (B/min) 20 97 2 Chronological Log Time Study Chronological Log 17:16:21 Patient arrived via Bed. 17:16:22 Patient Name, D.O.B, / Armband Verified By R.N. 17:16:23 Consent signed by the physician and the patient and verified by the Style Advisor staff. 17:16:24 Pre-op and post- op instructions given; patient acknowledges understanding of instructions. 17:16:25 Verbal Stimulation=2 Physical Stimulation=2 Airway=2 Respiration=2 TOTAL=8. (0=absent, 1=li mited, 2=present) Vitals capture started with the following parameters, Patient=Adult, Interval=5 min, Initial Pr viljph=793 mmHg, 17:23:05 Deflation Rate=5 mmHg 17:23:44 HR=75 bpm, IWMX=426/68 mmhg, SpO2=96.0 %, Resp=22 B/min, Pain=0, Delonte=10, Betancourt=2 17:25:48 Presedation assessment performed by Style Advisor RN. 17:26:00 Patient has been NPO for More than 6Hrs. 17:26:01 Skin Breakdown- none per patient. 17:26:18 Patient Warmer Placed on the Table. 17:26:20 Monisha Prominences Protected 17:26:22 A # 20 IV was noted in the Antecubital (right). Grade = 0 IV Solutions given in lab by Shiv Del Angel, RN in Right Antecubital via Peripheral IV. Pump/Dr ip Flow = 20 ml/hr using 17:26:44 NaCl .9. 17:28:39 HR=71 bpm, NWDV=800/71 mmhg, SpO2=95.0 %, Resp=16 B/min, Pain=0, Delonte=10, Betancourt=2 17:29:47 History and physical on the chart or being dictated. Assessment: Initial Case, HR=74 BPM, Rhythm=Sinus, ADSK=524/71 mmhg, Chest Pain=0, Edema=None, Color=Normal, Skin = Warm, Dry Right Pulses: Walker Ped=d, Femoral=1 17:29:49 Left Pulses: Walker Ped=d, Femoral=1 Neurological: State=Alert, Ox3, GREGORY Respiration: Resp=21 B/min, SpO2=96 %, O2=0 lpm 17:30:24 Reference ECG taken 17:31:09 Right groin prepped with 2% chlorhexidine, and with a 3 min. waiting time. 17:31:21 paged 17:33:36 HR=72 bpm, QPUK=501/71 mmhg, SpO2=96.0 %, Resp=18 B/min, Pain=0, Delonte=10, Betancourt=2 17:38:37 HR=71 bpm, YUSV=338/70 mmhg, Resp=15 B/min, Pain=0, Delonte=10, Betancourt=2 17:43:36 HR=71 bpm, CSYB=216/72 mmhg, Resp=18 B/min, Pain=0, Delonte=10, Betancourt=2 17:47:08 MD arrived. 17:48:37 HR=74 bpm, XEEA=398/71 mmhg, SpO2=95.0 %, Resp=15 B/min, Pain=0, Delonte=10, Betancourt=2 Time Out. Correct patient, correct procedure,correct physician, ,power injector loaded or not l oaded with contrast with 17:50:25 surgical team present. Time Out Concurred by MD, individual staff and [facility] in procedure 17:50:30 Case Start 17:52:28 20 mL 1% XYLOCAINE given in lab by Vy Crowder in Right Groin via Subcutaneous. 17:53:27 Access site was Right Femoral Artery. 17:53:38 HR=72 bpm, GOSO=977/67 mmhg, SpO2=95.0 %, Resp=19 B/min, Pain=0, Delonte=10, Betancourt=2 17:53:50 A SHEATH, FR5 TERUMO (10CM) FR 5 was advanced into the Fem Art (right) using the Percutaneo us technique. 17:54:12 Activated Clotting Time Drawn A PIGTAIL ANG. INFINITI CATHETER FR 5 was advanced over a wire. OMNIPAQUE, 350 MG, 150ML 150ML was used 17:54:37 for injections. 17:55:03 Pressure channel 1 zeroed. 17:56:21 The LV was injected at 10 cc/sec for a total of 30. OMNIPAQUE, 350 MG, 50ML 50ML used. Recorded Pressure: LV, Ao, HR=74, Condition=Condition 1 17:57:08 (Left Ventricle) LV 106/23/36, (Aorta) Ao 106/62/82 17:57:23 Catheter was removed 17:57:35 ACT (Normal Range 90-180) = 155 A JL 4.0 INFINITI CATHETER FR 5 was advanced over a wire. OMNIPAQUE, 350 MG, 150ML 150ML was us ed for 17:57:45 injections. 17:58:16 The LCA was injected and visualized at various angles. OMNIPAQUE, 350 MG, 150ML 150ML used . 17:58:29 Catheter was removed 17:58:35 HR=75 bpm, ZVER=080/76 mmhg, SpO2=96.0 %, Resp=19 B/min, Pain=0, Delonte=10, Betancourt=2 17:58:40 2 mg VERSED given in lab by Shiv Del Angel, RN in Right Antecubital via Peripheral IV. A AR MOD INFINITI CATHETER FR 5 was advanced over a wire. OMNIPAQUE, 350 MG, 150ML 150ML was us ed for 17:58:47 injections. Recorded Pressure: Ao, HR=73, Condition=Condition 1 17:59:50 (Aorta) Ao 107/62/80 17:59:59 50 mcg FENTANYL given in lab by Shiv Del Angel, RN in Right Antecubital via Peripheral IV. 18:00:00 The WHITTAKER was injected and visualized at various angles. OMNIPAQUE, 350 MG, 150ML 150ML used . 18:01:37 The RCA was injected and visualized at various angles. OMNIPAQUE, 350 MG, 150ML 150ML used . 18:02:40 The SVG-OM was injected and visualized at various angles. OMNIPAQUE, 350 MG, 150ML 150ML us ed. 18:03:40 HR=73 bpm, CPLV=151/62 mmhg, SpO2=97.0 %, Resp=18 B/min, Pain=0, Delonte=10, Betancourt=2 18:05:56 Catheter was removed A SHEATH, FR6.5 PRELUDE 11CM FR 6.5 was exchanged in the Fem Art (right). This was necessary in order to 18:06:20 accomodate a larger catheter. 18:07:31 A AR 1 GUIDE CATHETER FR 6 was advanced over a wire. OMNIPAQUE, 350 MG, 150ML 150ML was use d for injections. 18:08:37 HR=73 bpm, NECW=110/75 mmhg, SpO2=97.0 %, Resp=16 B/min, Pain=0, Delonte=10, Betancourt=2 18:08:37 6000 units HEPARIN given in lab by Vy Crowder in Right Antecubital via Peripheral IV. 18:10:02 A WIRE, BALANCE MIDDLEWEIGHT 190CM 190CM was inserted via Fem Art (right). 18:12:10 Interventional wire has crossed the lesion A BALLOON, 2.0 X 10MM EUPHORA 10MM was inserted over WIRE, BALANCE MIDDLEWEIGHT 190CM 190CM via the 18:12:56 SVG-OM. 18:13:40 HR=76 bpm, GVKM=757/71 mmhg, SpO2=97.0 %, Resp=21 B/min, Pain=0, Delonte=10, Betancourt=2 A BALLOON, 2.0 X 10MM EUPHORA 10MM over a WIRE, BALANCE MIDDLEWEIGHT 190CM 190CM in the SVG-OM was 18:16:06 inflated using a 30 JEANNA INDEFLATOR at 14 jeanna for 20 sec. 18:16:53 The SVG-OM was injected and visualized at various angles. OMNIPAQUE, 350 MG, 150ML 150ML us ed. 18:18:30 100 mcg NTG (IC) given in lab by Malcolm Back RCIS(BS) via Intra-coronary. 18:18:39 HR=78 bpm, QRVV=998/65 mmhg, SpO2=97.0 %, Resp=20 B/min, Pain=0, Delonte=10, Betancourt=2 A STENT, 2.5 8 RESOLUTE INTEGRITY RX 2.5 8 was deployed using a 30 JEANNA INDEFLATOR at 13 atmosph [address]res for 20 18:20:40 seconds in the SVG-OM. 18:22:02 Activated Clotting Time Drawn 18:22:30 The SVG-OM was injected and visualized at various angles. OMNIPAQUE, 350 MG, 150ML 150ML us ed. 18:23:17 Delivery device removed 18:23:25 Catheter was removed 18:23:29 Wire removed 18:23:43 HR=75 bpm, XCYR=099/64 mmhg, SpO2=97.0 %, Resp=22 B/min, Pain=0, Delonte=10, Betancourt=2 18:25:07 An injection in the Fem Art (right) was made through the SHEATH, FR6.5 PRELUDE 11CM FR 6.5. 18:25:25 ANGIOSEAL, FR6 VIP FR 6 placement in the Fem Art (right) 18:25:53 Case End 18:25:58 ACT (Normal Range 90-180) = 196 18:27:14 3000 units HEPARIN given in lab by Shiv Del Angel, RN in Right Antecubital via Peripheral I V. 18:27:37 Sterile dressing applied to site 18:27:39 No case complications noted. 18:27:41 Cine recording checked. Assessment: Final Case, HR=78 BPM, Rhythm=Sinus, IFCL=300/70 mmhg, Chest Pain=0, Edema=None, Color=Normal, Skin = Warm, Dry Right Pulses: Walker Ped=d, Femoral=1 18:27:46 Left Pulses: Walker Ped=d, Femoral=1 Neurological: State=Alert, Ox3, GREGORY Respiration: Resp=20 B/min, SpO2=97 %, O2=2 lpm 18:28:42 HR=76 bpm, RSCN=766/70 mmhg, Resp=25 B/min, Pain=0, Delonte=10, Betancourt=2 18:29:04 Implantable Device card placed in patient's chart. 18:29:08 A Left Heart Cath was performed. 18:30:50 180 mg BRILINTA given in lab by Shiv Del Angel, MITESH via Oral. 54 meq/kg AGGRASTAT BOLUS given in lab by Shiv Del Angel, RN in Right Antecubital via Periphera l IV. Amount given = 18:33:44 5778 meq. End Study - Contrast Media Used In Study Contrast Total Opened (mL) Total Used (mL) Total Wasted (mL) Omnipaque 200 200 0 End Study - Maximum Contrast Load Max Contrast Load (mL) 411.5 End Study - Radiation Exposure Fluoro Time (minutes) 10.6 End Study - Patient Disposition Complications Transferred To Interventional Outcome No Telemetry Bed successful
[2017-01-03] MEDS ORDERED: MISC INFORMATION XX ONE (19:00)
--- NOTE | 2017-01-03 19:01 | MB ---
cc: NIKKO BUCIO MD DATE OF CONSULTATION 01/03/17 HISTORY OF PRESENT ILLNESS This is a 61-year-old white male with history of coronary artery disease and four-vessel coronary artery bypass, cardiomyopathy and biventricular defibrillator placement. He presented with dyspnea, left foot pain and peripheral edema. He had abnormal troponin consistent with non-ST left myocardial infarction. He also complains of erythema of the left medial venous graft incision. He complains of substernal chest discomfort with exertion which is improved with nitroglycerin. Character of pain is severe pressure. PAST MEDICAL HISTORY 1. Coronary artery disease, cardiac catheterization in 10/2015 showed total occluded left main coronary artery disease in right coronary artery, occluded vein graft to the right coronary artery, patent graft to a marginal branch, patent WHITTAKER to LAD and two diagonals, diffuse LAD diseased. 2. Atrial fibrillation ablation by Dr. Wagner in 08/2015, four vessel bypass in 2001, stent placement times five 3. History of vasectomy 4. Ischemic cardiomyopathy, 5. Congestive heart failure 6. TIA 7. Carotid stenosis, 8. Diabetes mellitus 9. Dyslipidemia 10. Neuropathy 11. Restless legs. 12. Leukemia in childhood. 13. Blood dyscrasia 14. Hypothyroidism. MEDICATIONS 1. Nitroglycerine as needed 2. Clonazepam 3. Levothyroxine 4. Aldactone 5. Gabapentin 6. Carvedilol 7. Glipizide 8. Krill Oil 9. Multivitamin 10. Aspirin 11. Iron 12. Furosemide 13. Citalopram 14. Zocor 15. Pioglitazone 16. Losartan 17. Metformin ALLERGIES FLEXERIL LISINOPRIL SOCIAL HISTORY The patient quit smoking six months ago. He does not drink alcohol. He is . FAMILY HISTORY Positive for heart disease. REVIEW OF SYSTEMS Otherwise negative. PHYSICAL EXAMINATION VITAL SIGNS: Blood pressure 117/66, pulse 76 and regular. HEENT: Negative. 2+ carotid upstrokes. No bruits. LUNGS: Bilateral crackles. HEART: Regular. No murmur, gallop or rub. ABDOMEN: Soft. No bruits. EXTREMITIES: 2+ edema. 1+ distal pulses. NEUROLOGIC: Grossly nonfocal. CARDIOLOGY STUDIES EKG was reviewed and showed sinus rhythm and biventricular pacing. LABORATORY DATA Hemoglobin 9.5, potassium 4.1, creatinine 1.5 and 1.3. Troponin 0.78, 0.66 and 0.59. BNP 793. DIAGNOSES 1. Xgq-HR-rygiihjvs myocardial infarction. 2. Acute exacerbation of chronic systolic congestive heart failure. 3. Ischemic cardiomyopathy. Moderate left function (EF 35% in 09/2016) 4. Acute renal insufficiency, 5. Diabetes mellitus, 6. Dyslipidemia, 7. Coronary artery disease with history of four-vessel bypass and coronary stenting. DISPOSITION Ms. Ovalle has ruled in for myocardial infarction by enzymes. His presentation is consistent with non-ST elevation myocardial function. He will be scheduled for cardiac catheterization, coronary intervention if necessary. The patient and his understand the risks and benefits and wish to proceed. We will continue therapy for angina and also aggressive modification of his cardiac risk factors. MD ANUSHA Rousseau/ /4:19 PM /6:33 PM
[2017-01-03] MEDS ORDERED: ATORVASTATIN 80 MG TAB PO SCH (21:00)
[2017-01-03] MEDS ORDERED: FUROSEMIDE 40 MG/4 ML VIAL IV PUSH ONE (21:00)
[2017-01-03] MEDS: LEVOFLOXACIN 750 MG TAB PO SCH (21:59)
--- NOTE | 2017-01-03 23:19 | EKG ---
Date Performed: 01/02/2017 Time Performed: 21:24:26 PTAGE: 61 years EKG: ELECTRONIC VENTRICULAR PACEMAKER NO PREVIOUS TRACING DOCTOR: Vy Crowder Interpretating Date/Time 01/03/2017 23:17:41
[2017-01-03 23:21] LABS: AUTOMATED NEUTROPHIL # 10.3 TH/MM3 (1.8-7.7); BASOPHIL % 0.3 % (0.0-2.0); EOSINOPHIL # 0.1 TH/MM3 (0-0.4); EOSINOPHIL % 0.8 % (0.0-4.0); HEMATOCRIT 31.9 % (39.0-51.0); HEMO FLAGS DIFF FINAL; LYMPH % 7.2 % (9.0-44.0); LYMPHOCYTE # 0.9 TH/MM3 (1.0-4.8); MEAN CELL VOLUME 85.4 FL (80.0-100.0); MEAN CORPUSCULAR HEMOGLOBIN 28.5 PG (27.0-34.0); MEAN CORPUSCULAR HGB CONC 33.4 % (32.0-36.0); MONO % 6.1 % (0.0-8.0); NEUT % 85.6 % (16.0-70.0); PLATELET COUNT 262 TH/MM3 (150-450); RED BLOOD COUNT 3.73 MIL/MM3 (4.50-5.90); RED CELL DISTRIBUTION WIDTH 15.4 % (11.6-17.2)
[2017-01-03 23:32] LABS: APTT (PATIENT) 32.7 SEC (24.3-30.1)
[2017-01-04] VITALS (9 sets, daily range): BP systolic 94–114; BP diastolic 56–68; PULSE 66–78; RESP 20–22; TEMP 97.9–98.7; O2SAT 95–98
[2017-01-04] MEDS: CHLORHEXIDINE GLUCONATE 2 % 1 PACK (2 CLOTHS) TOP SCH (04:00)
[2017-01-04 05:14] LABS: AUTOMATED NEUTROPHIL # 8.4 TH/MM3 (1.8-7.7); BASOPHIL % 0.4 % (0.0-2.0); EOSINOPHIL # 0.1 TH/MM3 (0-0.4); EOSINOPHIL % 0.9 % (0.0-4.0); HEMATOCRIT 31.2 % (39.0-51.0); HEMO FLAGS DIFF FINAL; LYMPH % 9.8 % (9.0-44.0); MEAN CELL VOLUME 85.2 FL (80.0-100.0); MEAN CORPUSCULAR HEMOGLOBIN 28.6 PG (27.0-34.0); MEAN CORPUSCULAR HGB CONC 33.5 % (32.0-36.0); MONO % 7.2 % (0.0-8.0); NEUT % 81.7 % (16.0-70.0); PLATELET COUNT 277 TH/MM3 (150-450); RED BLOOD COUNT 3.66 MIL/MM3 (4.50-5.90); RED CELL DISTRIBUTION WIDTH 14.9 % (11.6-17.2); WHITE BLOOD COUNT 10.3 TH/MM3 (4.0-11.0)
[2017-01-04 05:41] LABS: BICARBONATE 24.2 MEQ/L (21.0-32.0)
[2017-01-04 05:44] LABS: HDL CHOLESTEROL 29.7 MG/DL (40.0-60.0)
[2017-01-04] MEDS: LEVOTHYROXINE SODIUM 25 MCG TAB PO SCH (06:28)
--- NOTE | 2017-01-04 07:51 | EKG ---
Date Performed: 01/03/2017 Time Performed: 22:11:47 PTAGE: 61 years EKG: ELECTRONIC VENTRICULAR PACEMAKER ABNORMAL RHYTHM ECG PREVIOUS TRACING : 01/02/2017 21.24 DOCTOR: Maurisio Padilla Interpretating Date/Time 01/04/2017 07:49:33
--- NOTE | 2017-01-04 08:14 | EKG ---
Date Performed: 01/04/2017 Time Performed: 07:16:40 PTAGE: 61 years EKG: ELECTRONIC VENTRICULAR PACEMAKER MARKED ST ELEVATION, CONSIDER LATERAL INJURY ACUTE CT * PREVIOUS TRACING : 01/03/2017 22.11 DOCTOR: Maurisio Padilla Interpretating Date/Time 01/04/2017 08:11:13
[2017-01-04] MEDS ORDERED: TICAGRELOR 90 MG TAB PO SCH (09:00)
[2017-01-04] MEDS: CITALOPRAM HYDROBROMIDE 40 MG TAB PO SCH ×2 (09:00→10:38)
[2017-01-04] MEDS ORDERED: ASPIRIN 81 MG CHEW TAB PO SCH (09:00)
[2017-01-04] MEDS: FUROSEMIDE 40 MG TAB PO SCH (10:37)
[2017-01-04] MEDS: clonazePAM 0.5 MG TAB PO SCH (10:38)
[2017-01-04] MEDS: LEVOFLOXACIN 750 MG TAB PO SCH (10:38)
[2017-01-04] MEDS: LOSARTAN 25 MG TAB PO SCH (10:38)
[2017-01-04] MEDS: SODIUM CHLORIDE 0.9% FLUSH 10 ML FLUSH IV FLUSH SCH (10:39)
[2017-01-04] MEDS: CARVEDILOL 6.25 MG TAB PO SCH (10:39)
[2017-01-04] MEDS: SPIRONOLACTONE 25 MG TAB PO SCH (10:39)
[2017-01-04] MEDS: FERROUS SULFATE 325 MG (65 MG ELEMENTAL IRON) TAB PO SCH (10:39)
[2017-01-04] MEDS: GABAPENTIN 100 MG CAP PO SCH ×2 (10:39→14:35)
--- NOTE | 2017-01-04 10:50 | HHI.PR ---
Subjective Remarks Follow up NSTEMI, cellulitis. Patient denies chest pain. States that his left foot swelling/erythema is improving. He wants to go home today. Objective Vitals Vital Signs Date Time Temp Pulse Resp B/P Pulse Ox O2 Delivery O2 Flow Rate FiO2 01/04/17 06:00 66 01/04/17 04:00 97.9 70 22 94/56 97 01/04/17 04:00 68 01/04/17 02:00 70 01/04/17 00:00 76 01/04/17 00:00 98.0 76 21 104/57 95 01/03/17 22:00 89 01/03/17 20:00 97.8 90 31 140/63 91 01/03/17 20:00 90 01/03/17 16:00 69 01/03/17 16:00 97.3 69 20 113/73 99 01/03/17 14:00 68 01/03/17 12:00 97.7 64 22 101/59 99 01/03/17 12:00 64 I/O 01/03/17 01/03/17 01/03/17 01/04/17 01/04/17 01/04/17 07:00 15:00 23:00 07:00 15:00 23:00 Intake Total 66 ml 570 ml 409 ml 150 ml Output Total 665 ml 1150 ml 1625 ml 1400 ml Balance -599 ml -580 ml -1216 ml -1250 ml Intake Oral 480 ml 250 ml 150 ml IV Total 66 ml 90 ml 159 ml Output Urine Total 665 ml 1150 ml 1625 ml 1400 ml # Bowel Movements 0 Result Diagram: 01/04/1743601/04/17436 Imaging Last Impressions Chest X-Ray 01/02/172036 Signed Impressions: Service Date/Time: Monday, January 02, 2017 20:56 - CONCLUSION: Cardiomegaly and diffuse increased interstitial markings likely related to CHF. There is further atelectasis, consolidation or effusion seen at the left base silhouetting the left hemidiaphragm. Justus Murray MD Lower Extremity Ultrasound 01/02/17 0000 Signed Impressions: Service Date/Time: Monday, January 02, 2017 22:28 - CONCLUSION: 1. No DVT. 2. Suspected Aguirre's cyst on the right side. Justus Murray MD Objective Remarks General: No acute distress. Heart: Regular rate and rhythm. No murmur. Lungs: Clear to auscultation bilaterally. No wheezes, rales, or rhonchi. Breathing is nonlabored. Abdomen: Soft, nontender, nondistended. Extremities: 1+ bilateral lower extremity edema. Left foot erythema improving. Psych: Alert and oriented. Procedures 01/03/17 cardiac catheterization Urinary Catheter: No Vascular Central Line Catheter: No A/P Problem List: (1) Non-ST elevation MO (NSTEMI) ICD Code: I21.4 Status: Acute (2) Elevated troponin ICD Code: R74.8 Status: Acute (3) Hypothyroidism ICD Code: E03.9 Status: Chronic (4) Hyperlipidemia ICD Code: E78.5 Status: Chronic (5) Diabetes mellitus ICD Code: E11.9 Status: Chronic (6) A-fib ICD Code: I48.91 Status: Chronic (7) Cellulitis ICD Code: L03.90 Status: Acute (8) Acute kidney injury ICD Code: N17.9 Status: Acute (9) Acute systolic (congestive) heart failure ICD Code: I50.21 Status: Acute Assessment and Plan 1. Non-ST elevation MO: Status post cardiac catheterization. Appreciate cardiology recommendations. Continue aspirin, Brilinta. 2. Acute systolic congestive heart failure: Continue diuresis. Chest x-ray with findings consistent with CHF. BNP elevated. Monitor intake/output. 3. Diabetes mellitus type 2: Monitor Accu-Cheks and cover with sliding scale insulin. 4. Left lower extremity cellulitis: Continue antibiotics. 5. Acute kidney injury: Secondary to dehydration. Monitor BUN and creatinine. Improving. 6. DVT prophylaxis: On aspirin, Brilinta. Discharge Planning Plan for discharge home when cleared by cardiology. Wander Mtz MD Jan 04, 2017 10:50
--- NOTE | 2017-01-04 14:31 | PD.CARD.PN ---
Subjective Subjective Remarks No CP or SOB, feels well Objective Medications Current Medications Medications (Trade) Dose Ordered Sig/Hugo Route Start Time Stop Time Status Last Admin (NS Flush) 2 ml UNSCH PRN IV FLUSH 01/02/17 22:00 (NS Flush) 2 ml BID IV FLUSH 01/03/17 09:00 01/04/17 10:39 (Narcan Inj) 0.4 mg UNSCH PRN IV 01/02/17 22:00 Miscellaneous Information 1 Q361D XX 01/03/17 00:30 (Chlorhexidine 2% Cloth) 3 pack Taper DAILY@04 TOP 01/03/17 04:00 12/30/17 03:59 01/04/17 04:00 (Chlorhexidine 2% Cloth) 3 pack UNSCH PRN TOP 01/03/17 00:30 (Coreg) 6.25 mg DAILY PO 01/03/17 09:00 01/04/17 10:39 (CeleXA) 40 mg DAILY PO 01/03/17 09:00 01/03/17 08:08 (KlonoPIN) 0.5 mg BID PO 01/03/17 09:00 01/04/17 10:38 (Ferrous Sulfate) 325 mg BID PO 01/03/17 09:00 01/04/17 10:39 (Lasix) 40 mg BID PO 01/03/17 09:00 01/04/17 10:37 (Neurontin) 100 mg QID PO 01/03/17 09:00 01/04/17 10:39 (Synthroid) 25 mcg DAILY@07 PO 01/03/17 07:00 01/04/17 06:28 (Cozaar) 25 mg DAILY PO 01/03/17 09:00 01/04/17 10:38 (Aldactone) 25 mg BIDPC PO 01/03/17 09:00 01/04/17 10:39 (D50w (Vial) Inj) 50 ml UNSCH PRN IV 01/03/17 02:15 (Glucagon Inj) 1 mg UNSCH PRN OTHER 01/03/17 02:15 (Levaquin) 750 mg DAILY PO 01/03/17 22:20 01/04/17 10:38 (Aspirin Chew) 81 mg DAILY PO 01/04/17 09:00 01/04/17 10:38 (Brilinta) 90 mg BID PO 01/04/17 09:00 01/04/17 10:37 (Lipitor) 80 mg HS PO 01/03/17 21:00 01/03/17 19:22 Vital Signs / I&O GENERAL: In NAD SKIN: Warm and dry. HEAD: Normocephalic. EYES: No scleral icterus. No injection or drainage. NECK: Supple, trachea midline. No JVD or lymphadenopathy. CARDIOVASCULAR: Regular rate and rhythm without murmurs, gallops, or rubs. RESPIRATORY: Breath sounds equal bilaterally. No accessory muscle use. GASTROINTESTINAL: Abdomen soft, non-tender, nondistended. MUSCULOSKELETAL: No cyanosis, or edema. Groin stable Vital Signs Date Time Temp Pulse Resp B/P Pulse Ox O2 Delivery O2 Flow Rate FiO2 01/04/17 12:00 78 01/04/17 12:00 97.9 78 21 109/65 97 01/04/17 10:00 78 01/04/17 08:00 75 01/04/17 08:00 97.9 75 20 114/68 98 01/04/17 06:00 66 01/04/17 04:00 97.9 70 22 94/56 97 01/04/17 04:00 68 01/04/17 02:00 70 01/04/17 00:00 76 01/04/17 00:00 98.0 76 21 104/57 95 01/03/17 22:00 89 01/03/17 20:00 97.8 90 31 140/63 91 01/03/17 20:00 90 01/03/17 16:00 69 01/03/17 16:00 97.3 69 20 113/73 99 I/O 01/03/17 01/03/17 01/03/17 01/04/17 01/04/17 01/04/17 07:00 15:00 23:00 07:00 15:00 23:00 Intake Total 66 ml 570 ml 409 ml 150 ml Output Total 665 ml 1150 ml 1625 ml 1400 ml Balance -599 ml -580 ml -1216 ml -1250 ml Intake Oral 480 ml 250 ml 150 ml IV Total 66 ml 90 ml 159 ml Output Urine Total 665 ml 1150 ml 1625 ml 1400 ml # Bowel Movements 0 Physical Exam Current Medications GENERAL: In NAD SKIN: Warm and dry. HEAD: Normocephalic. EYES: No scleral icterus. No injection or drainage. NECK: Supple, trachea midline. No JVD or lymphadenopathy. CARDIOVASCULAR: Regular rate and rhythm without murmurs, gallops, or rubs. RESPIRATORY: Breath sounds equal bilaterally. No accessory muscle use. GASTROINTESTINAL: Abdomen soft, non-tender, nondistended. MUSCULOSKELETAL: No cyanosis, or edema. Groin stable Laboratory Laboratory Tests Test 01/03/17 01/04/17 22:32 04:37 White Blood Count 12.0 TH/MM3 10.3 TH/MM3 Red Blood Count 3.73 MIL/MM3 3.66 MIL/MM3 Hemoglobin 10.6 GM/DL 10.5 GM/DL Hematocrit 31.9 % 31.2 % Mean Corpuscular Volume 85.4 FL 85.2 FL Mean Corpuscular Hemoglobin 28.5 PG 28.6 PG Mean Corpuscular Hemoglobin 33.4 % 33.5 % Concent Red Cell Distribution Width 15.4 % 14.9 % Platelet Count 262 TH/MM3 277 TH/MM3 Mean Platelet Volume 7.7 FL 7.4 FL Neutrophils (%) (Auto) 85.6 % 81.7 % Lymphocytes (%) (Auto) 7.2 % 9.8 % Monocytes (%) (Auto) 6.1 % 7.2 % Eosinophils (%) (Auto) 0.8 % 0.9 % Basophils (%) (Auto) 0.3 % 0.4 % Neutrophils # (Auto) 10.3 TH/MM3 8.4 TH/MM3 Lymphocytes # (Auto) 0.9 TH/MM3 1.0 TH/MM3 Monocytes # (Auto) 0.7 TH/MM3 0.7 TH/MM3 Eosinophils # (Auto) 0.1 TH/MM3 0.1 TH/MM3 Basophils # (Auto) 0.0 TH/MM3 0.0 TH/MM3 CBC Comment DIFF FINAL DIFF FINAL Differential Comment Activated Partial 32.7 SEC Thromboplast Time Sodium Level 133 MEQ/L Potassium Level 4.0 MEQ/L Chloride Level 99 MEQ/L Carbon Dioxide Level 24.2 MEQ/L Anion Gap 10 MEQ/L Blood Urea Nitrogen 23 MG/DL Creatinine 1.21 MG/DL Estimat Glomerular Filtration 61 ML/MIN Rate Random Glucose 181 MG/DL Calcium Level 9.0 MG/DL Total Creatine Kinase 82 U/L Triglycerides Level 141 MG/DL Cholesterol Level 150 MG/DL LDL Cholesterol 92 MG/DL HDL Cholesterol 29.7 MG/DL Cholesterol/HDL Ratio 5.05 RATIO Imaging Last Impressions Chest X-Ray 01/02/172036 Signed Impressions: Service Date/Time: Monday, January 02, 2017 20:56 - CONCLUSION: Cardiomegaly and diffuse increased interstitial markings likely related to CHF. There is further atelectasis, consolidation or effusion seen at the left base silhouetting the left hemidiaphragm. Justus Murray MD Lower Extremity Ultrasound 01/02/17 0000 Signed Impressions: Service Date/Time: Monday, January 02, 2017 22:28 - CONCLUSION: 1. No DVT. 2. Suspected Aguirre's cyst on the right side. Justus Murray MD Assessment and Plan Problem List: (1) Non-ST elevation IN (NSTEMI) (2) cad (3) Systolic CHF (4) Ischemic cardiomyopathy (5) Diabetes mellitus (6) Hyperlipidemia (7) Hx of CABG (8) Stented coronary artery Assessment and Plan Stable post PCI. Groin without hematoma. DC home on Brilinta, baby ASA, atorvastatin, beta minal. Continue tx for CHF. F/u w Dr. Steele next week. Vy Crowder MD Jan 04, 2017 14:30
[2017-01-04] MEDS ORDERED: BRIL90TA PO (15:38)
[2017-01-04] MEDS ORDERED: ASPI81CH25 PO (15:38)
[2017-01-04] MEDS ORDERED: LEVA750T9 PO (15:38)
--- NOTE | 2017-01-04 15:39 | HHI.DCPOC ---
Discharge Care Plan Diagnosis: (1) Ischemic cardiomyopathy (2) Hyperlipidemia (3) Diabetes mellitus (4) Non-ST elevation VT (NSTEMI) (5) Hypothyroidism (6) A-fib (7) Acute kidney injury (8) Acute systolic (congestive) heart failure (9) Cellulitis Goals to Promote Your Health * To prevent worsening of your condition and complications * To maintain your health at the optimal level Directions to Meet Your Goals Take your medications as prescribed Follow your dietary instruction Follow activity as directed Keep your appointments as scheduled Take your immunizations and boosters as scheduled If your symptoms worsen call your PCP, if no PCP go to Urgent Care Center or Emergency Room Smoking is Dangerous to Your Health. Avoid second hand smoke Call the 24-hour hour crisis hotline for domestic abuse at Wander Mtz MD Jan 04, 2017 15:38
[2017-01-04] MEDS ORDERED: ATOR1TAB18 PO (15:40)
[2017-01-04] MEDS ORDERED: DEXTROSE 50% IN WATER 50 ML VIAL(D50) IV PUSH PRN (15:45)
[2017-01-04] MEDS ORDERED: GLUCAGON 1 MG/ML VIAL OTHER PRN (15:45)
[2017-01-04] MEDS ORDERED: LOW DOSE INSULIN NOVOLOG SUPPLEMENTAL SCALE SQ SCH (16:00)
[2017-01-04] MEDS ORDERED: CARV6.252 PO (17:05)
--- NOTE | 2017-01-05 15:26 | MR ---
cc: NIKKO BUCIO DATE: 01/05/2017. INDICATIONS Apb-TE-nwoerlrhx myocardial function, coronary artery disease, history of coronary bypass, ischemic cardiomyopathy with severe ventricular systolic function. PROCEDURES PERFORMED: 1. Retrograde heart catheterization with left ventriculography, selective angiography, saphenous venous graft angiography and left internal mammary artery angiography 2. Angioplasty and stenting of the saphenous venous graft to the obtuse marginal artery. 3. Moderate sedation. ACCESS SITE: Right femoral artery using 5-Belizean pigtail catheter, 5-Belizean JL4 and AR modified coronary artery catheters. AR-1 guide, BMW wire, 2.0 balloon for pre-dilatation, 2.5 x 8 mm Resolute stent at 13 atmospheres. MEDICATIONS: 1. Versed IV. 2. Fentanyl IV. 3. Heparin IV. 4. Tirofiban IV bolus. 5. Nitroglycerin IV. 6. Brilinta 122 milligrams p.o. METHOD OF HEMOSTASIS: Angio-Seal closure ESTIMATED BLOOD LOSS: Less than 10 mL. COMPLICATIONS: None. RESULTS OF HEMODYNAMICS: Heart rate 70 beats per minute. End diastolic pressure 20 mmHg. 105/20. Aorta 105/62. Left ventricular ejection fraction 25%. Wall motion inferior akinesis. No mitral regurgitation. CORONARY ANGIOGRAPHY: The left main coronary artery is totally occluded in its distal portion. The right coronary artery is totally occluded at the proximal portion. The distal vessel shows dnnse-xh-stiac collaterals. The left anterior descending artery is patent. The mid distal proximal and distal left anterior descending. The mid left anterior descending has 50% stenosis distally to the second diagonal branch. The first diagonal branch is patent. The second diagonal branch is patent. The saphenous vein graft to the obtuse marginal artery has 95% stenosis at the distal anastomosis. Lesion length is 5 mm. JOELLE flow 1 and post JOELLE flow 3 post stenosis 0 lesion. DIAGNOSIS: 1. Severe multivessel coronary disease with patent WHITTAKER to LAD and severe stenosis of the saphenous venous graft to the obtuse marginal artery distally to the anastomosis 2. Severe left ventricular dysfunction consistent with ischemic cardiomyopathy. 3. Successful angioplasty and stenting of the saphenous venous graft to the obtuse marginal artery. DISPOSITION: Mr. Ovalle will be monitored on telemetry with enzymes and EKGs. We will continue therapy with Brilinta for at least one year and aspirin indefinitely and will also continue risk modification of his cardiac risk factors. We will continue therapy for congestive heart failure. He will follow up with Dr. Steele, his primary technical rep, in his office after discharge. MD ANUSHA Rousseau/JULIA /6:45 PM /3:18 PM
== END 2017-01-04 17:30 | disposition home or self-care (01) | DRG 246 ==
LOC: PHED 20:00 → PHEDA 21:52 → HIMN 23:35
PROVIDERS: ADMIT Family Medicine; ATTEND Family Medicine
PROC: 4A023N7 Measurement of Cardiac Sampling and Pressure, Left Heart, Percutaneous Approach (ICD-10-PCS; 2017-01-03)
PROC: B2111ZZ Fluoroscopy of Multiple Coronary Arteries using Low Osmolar Contrast (ICD-10-PCS; 2017-01-03)
PROC: B2181ZZ Fluoroscopy of Left Internal Mammary Bypass Graft using Low Osmolar Contrast (ICD-10-PCS; 2017-01-03)
PROC: B2121ZZ Fluoroscopy of Single Coronary Artery Bypass Graft using Low Osmolar Contrast (ICD-10-PCS; 2017-01-03)
PROC: B2151ZZ Fluoroscopy of Left Heart using Low Osmolar Contrast (ICD-10-PCS; 2017-01-03)
PROC: 027034Z Dilation of Coronary Artery, One Artery with Drug-eluting Intraluminal Device, Percutaneous Approach (ICD-10-PCS; principal; 2017-01-03 16:00)
DX: I21.4 Non-ST elevation (NSTEMI) myocardial infarction (principal); I50.23 Acute on chronic systolic (congestive) heart failure; N17.9 Acute kidney failure, unspecified; L03.116 Cellulitis of left lower limb; G62.9 Polyneuropathy, unspecified; I25.810 Atherosclerosis of coronary artery bypass graft(s) without angina pectoris; I65.29 Occlusion and stenosis of unspecified carotid artery; I48.91 Unspecified atrial fibrillation; J98.11 Atelectasis; F32.9 Major depressive disorder, single episode, unspecified; E11.9 Type 2 diabetes mellitus without complications; E86.0 Dehydration; D75.9 Disease of blood and blood-forming organs, unspecified; J44.9 Chronic obstructive pulmonary disease, unspecified; I11.0 Hypertensive heart disease with heart failure; N28.9 Disorder of kidney and ureter, unspecified; I25.10 Atherosclerotic heart disease of native coronary artery without angina pectoris; I25.5 Ischemic cardiomyopathy; E78.5 Hyperlipidemia, unspecified; E03.9 Hypothyroidism, unspecified; F41.9 Anxiety disorder, unspecified; K21.9 Gastro-esophageal reflux disease without esophagitis; G25.81 Restless legs syndrome; I25.2 Old myocardial infarction; Z95.5 Presence of coronary angioplasty implant and graft; Z87.891 Personal history of nicotine dependence; Z79.84 Long term (current) use of oral hypoglycemic drugs; Z85.6 Personal history of leukemia; Z95.810 Presence of automatic (implantable) cardiac defibrillator; Z86.73 Personal history of transient ischemic attack (TIA), and cerebral infarction without residual deficits
CPT/HCPCS: 71010; 80048; 80061; 82550; 82948; 83880; 84484; 85002; 85025; 85610; 85730; 87040; 87641; 92937; 93005; 93459; 93970; 94640; 94664; 96374; C1725; C1760; C1769; C1874; C1887; C1893; G0269; J0696; J1644; J1940; J2250; J3010; J3246; J7030; Q9967

== ENCOUNTER 2017-02-22 14:10 | Inpatient (IN) | payer MEDICARE ==
[~2017-02-22] VITALS: Ht 177.8 cm; Wt 94.5 kg
[~2017-02-22 14:10] MED LIST changes: -BACT800T5 PO; -CEFA2PLA5 IV; -CEFA2SOL IV; -CIPR-9 PO; -CIPR500T2 PO; -CLIN1CAP6 PO; -EPIN1INJ21 IV PUSH; -EPIN1INJ21 SQ; -FERR140T PO; -FLOR250C PO; -FURO80TA PO; -GADODIAMIDE PF 287 MG/ML 20 ML VIAL (for RAD MRI) IV ONE; -HYDR-3533 PO; -LEVA500T20 PO; -NICO21DI25 T-DERMAL; -QUET1TAB8 PO; -SIMV40TA PO; -SODI1TAB PO; -SOLU250I IV PUSH; -VANC1INJ2 IV; -VENL75TA PO; -ZETI10TA5 PO; -ZOFR4TAB PO
[2017-02-22 14:12] VITALS: BP 121/58; PULSE 98; RESP 16; TEMP 97.9; O2SAT 99
--- NOTE | 2017-02-22 14:17 | PD ---
Physical Exam Date Seen by Provider: Feb 22, 2017 Time Seen by Provider: 14:16 Narrative 61 YOWM C/O L FOOT INFECTION. GETTING HOME HEALTH GETTING WORSE WITH REDNESS .H/ O DM VS REVIEWED WAITING FOR BED PLACEMENT Data Data Last Documented VS Vital Signs Date Time Temp Pulse Resp B/P Pulse Ox O2 Delivery O2 Flow Rate FiO2 02/22/17 14:12 97.9 98 16 121/58 99 MDM Supervised Visit with LISSETT: Rivas Whiteside Feb 22, 2017 14:17
[2017-02-22 15:33] VITALS: BP 134/92; PULSE 100; RESP 22; TEMP 98.9; O2SAT 95
[2017-02-22] MEDS ORDERED: ZETI10TA5 PO (15:42)
[2017-02-22] MEDS ORDERED: BACT800T5 PO (15:42)
[2017-02-22] MEDS ORDERED: VENL75TA PO (15:42)
--- NOTE | 2017-02-22 16:05 | PD ---
HPI Chief Complaint: Skin Problem Time Seen by Provider: 15:24 Travel History International Travel<30 days: No Contact w/Intl Traveler<30days: No Traveled to known affect area: No History of Present Illness HPI 61-year-old male complains of infection to left foot. Patient has history of diabetic foot ulcer for the past month. Patient has been seen by physician assistant infant teacher to Dr. Lerner for the past month. Patient was referred from wound care clinic. The wound has been taking care of by frequent dressing change. Patient was admitted recently for non-STEMI and was given prescription for Levaquin for the foot infection. Patient had an MRI done today palpation of the left foot which shows soft tissue ulceration without significant deep connection, abscess or osteomyelitis. Patient was advised by his wound care physician to go the ED to be evaluated and possible admission for IV antibiotic. Patient states that he had temperature 100.9 last night. Culture done recently on the left foot which shows staph infection. Patient states that he has redness extending from the left foot up to the medial aspect of the left ankle since last night. PFSH Past Medical History Hx Anticoagulant Therapy: Yes (ASA) Asthma: No Atrial Fibrillation: Yes (ABLATION ) Blood Disorders: No Anxiety: Yes Depression: Yes Heart Rhythm Problems: Yes (HX OF V TACH WITH CARDIAC CATHS REQUIRING LIDOCAINE ) Cancer: No Cardiovascular Problems: Yes (CHF, AFIB ) High Cholesterol: Yes Chemotherapy: No Chest Pain: Yes Congestive Heart Failure: Yes COPD: No Cerebrovascular Accident: No Coronary Artery Disease: Yes Diabetes: Yes Patient Takes Glucophage: Yes Diminished Hearing: No Endocrine: Yes (DIABETES) Gastrointestinal Disorders: Yes (GERD) GERD: No Glaucoma: No Genitourinary: No Hepatitis: No Hiatal Hernia: No Hypertension: Yes Immune Disorder: No Implanted Vascular Access Dvce: Yes Musculoskeletal: No Neurologic: No Psychiatric: Yes Respiratory: No Immunizations Current: Yes Migraines: No Myocardial Infarction: Yes Radiation Therapy: No Renal Failure: No Seizures: No Sleep Apnea: No Thyroid Disease: No Ulcer: No Tetanus Vaccination: < 5 Years Past Surgical History Abdominal Surgery: No AICD: No Arteriovenous Shunt: No Body Medical Devices: CARDIAC STENTS , current BIV ICD Cardiac Surgery: Yes (CABG x4 2000, STENTS X3 2005, STENTS X'S 1 2006 AND 2010) Coronary Artery Bypass Graft: Yes (QUAD) Coronary Stent: Yes (X 7) Ear Surgery: No Endocrine Surgery: No Eye Surgery: No Genitourinary Surgery: No Insulin Pump: No Joint Replacement: No Oral Surgery: Yes (TEETH REMOVED) Pacemaker: No Thoracic Surgery: Yes (CABG "02") Other Surgery: Yes Social History Alcohol Use: No Tobacco Use: No (1 PPD; STATES RECENTLY QUIT) Substance Use: No Allergies-Medications (Allergen,Severity, Reaction): Coded Allergies: cyclobenzaprine (Unverified Allergy, Severe, Flushing, 02/22/17) REDNESS lisinopril (Unverified Allergy, Unknown, Swelling, 02/22/17) ANGIOEDEMA Reported Meds & Prescriptions Reported Meds & Active Scripts Active Carvedilol 6.25 Mg Tab 6.25 Mg PO BID Atorvastatin (Atorvastatin Calcium) 80 Mg Tab 80 Mg PO HS Brilinta (Ticagrelor) 90 Mg Tab 90 Mg PO BID Aspirin Low Strength (Aspirin) 81 Mg Chew 81 Mg PO DAILY Reported Zetia (Ezetimibe) 10 Mg Tab 10 Mg PO DAILY Effexor (Venlafaxine HCl) 75 Mg Tab 75 Mg PO Q12H Bactrim DS (Sulfamethoxazole-Trimethoprim) 800-160 Mg Tab 1 Tab PO BID 10 Days Nitrostat SL (Nitroglycerin) 0.4 Mg Subl 0.4 Mg SL DIRECTED PRN 1 tablet under the tongue as needed for chest pain. Repeat every 5 minutes for a total of 3 DOSES or call 911 if NO relief. Clonazepam 0.5 Mg Tab 0.5 Mg PO BID Levothyroxine (Levothyroxine Sodium) 25 Mcg Tab 25 Mcg PO DAILY Aldactone (Spironolactone) 25 Mg Tab 25 Mg PO BIDPC Gabapentin 100 Mg Cap 100 Mg PO QID Glipizide 5 Mg Tab 5 Mg PO DAILY Take 30 minutes before a meal Krill Oil 500 Mg Capsule 500 Mg PO DAILY Multivitamins (Multivitamin) 1 Each Tab.chew 1 Tab PO DAILY Ferosul (Ferrous Sulfate) 325 Mg Tablet 1 Tab PO BID Furosemide 40 Mg Tab 40 Mg PO BID Pioglitazone (Pioglitazone HCl) 45 Mg Tab 45 Mg PO DAILY Losartan (Losartan Potassium) 25 Mg Tab 25 Mg PO DAILY Metformin (Metformin HCl) 500 Mg Tab 500 Mg PO TIDPC With meals Review of Systems General / Constitutional: No: Fever Eyes: No: Visual changes HENT: No: Headaches Cardiovascular: No: Chest Pain or Discomfort Respiratory: No: Shortness of Breath Gastrointestinal: No: Abdominal Pain Genitourinary: No: Dysuria Musculoskeletal: No: Pain Skin: No Rash Neurologic: No: Weakness Psychiatric: No: Depression Endocrine: No: Polydipsia Hematologic/Lymphatic: No: Easy Bruising Physical Exam Narrative GENERAL: Well-nourished, well-developed patient. SKIN: Focused skin assessment warm/dry. HEAD: Normocephalic. EYES: No scleral icterus. No injection or drainage. NECK: Supple, trachea midline. No JVD or lymphadenopathy. CARDIOVASCULAR: Regular rate and rhythm without murmurs, gallops, or rubs. RESPIRATORY: Breath sounds equal bilaterally. No accessory muscle use. GASTROINTESTINAL: Abdomen soft, non-tender, nondistended. MUSCULOSKELETAL: No cyanosis, or edema. BACK: Nontender without obvious deformity. No CVA tenderness. Patient has a large ulcer lesion on the left foot between the first and second toes and soft tissue distally with redness swelling tenderness and discharge noted. The redness extended to the medial aspect left ankle and distal aspect left low leg. Data Data Last Documented VS Vital Signs Date Time Temp Pulse Resp B/P Pulse Ox O2 Delivery O2 Flow Rate FiO2 02/22/17 15:33 102 22 02/22/17 15:33 98.9 134/92 95 Orders Electrocardiogram (02/22/17 15:35) Complete Blood Count With Diff (02/22/17 15:35) Comprehensive Metabolic Panel (02/22/17 15:35) Prothrombin Time / Inr (Pt) (02/22/17 15:35) Act Partial Throm Time (Ptt) (02/22/17 15:35) Blood Culture (02/22/17 15:35) C-Reactive Protein (Crp) (02/22/17 15:35) Urinalysis - C+S If Indicated (02/22/17 15:35) Westergren Sedimentation Rate (02/22/17 15:35) Chest, Single Ap (02/22/17 15:35) Iv Access Insert/Monitor (02/22/17 15:35) Ecg Monitoring (02/22/17 15:35) Oximetry (02/22/17 15:35) Sodium Chlor 0.9% 1000 Ml Inj (Ns 1000 M (02/22/17 15:45) MDM Medical Decision Making Medical Screen Exam Complete: Yes Emergency Medical Condition: Yes Differential Diagnosis Differential diagnosis including cellulitis, abscess, osteomyelitis. Narrative Course 61-year-old male with infected diabetic ulcer on the left foot with cellulitis. Oli Bryant MD Feb 22, 2017 16:05
--- NOTE | 2017-02-22 16:27 | RADRPT ---
EXAM DATE/TIME: 02/22/2017 15:57 [facility] COMPARISON: CHEST SINGLE AP, January 02, 2017, 20:56. INDICATIONS : Infection in foot. No chest complaint. MEDICAL HISTORY : Myocardial infarction. Congestive heart failure. Coronary artery disease, AFIB. SURGICAL HISTORY : CABG. Stent ENCOUNTER: Initial ACUITY: 1 week PAIN SCORE: 0/10 LOCATION: Bilateral chest FINDINGS: Median sternotomy wires are noted status post cardiac surgery. The heart is top normal in size. Lef t basilar patchiness is noted consistent with probable pneumonia. The right lung is clear. A multil ead left subclavian pacemaker has its tips in the right atrium and right ventricle. There is no pneum othorax. Old fractures of the right ribcage are stable. CONCLUSION: Left basilar patchiness consistent with probable pneumonia. Clinical correlation is recommended. Thomas Acosta MD on February 22, 2017 at 16:23 Board Certified Radiologist. This report was verified electronically.
[2017-02-22 16:39] LABS: AUTOMATED NEUTROPHIL # 11.2 TH/MM3 (1.8-7.7); BASOPHIL # 0.1 TH/MM3 (0-0.2); BASOPHIL % 0.6 % (0.0-2.0); EOSINOPHIL # 0.2 TH/MM3 (0-0.4); EOSINOPHIL % 1.5 % (0.0-4.0); HEMO FLAGS DIFF FINAL; LYMPH % 7.2 % (9.0-44.0); MEAN CELL VOLUME 86.4 FL (80.0-100.0); MEAN CORPUSCULAR HGB CONC 33.6 % (32.0-36.0); MONO % 8.5 % (0.0-8.0); NEUT % 82.2 % (16.0-70.0); PLATELET COUNT 332 TH/MM3 (150-450); RED BLOOD COUNT 3.36 MIL/MM3 (4.50-5.90); RED CELL DISTRIBUTION WIDTH 16.3 % (11.6-17.2); WHITE BLOOD COUNT 13.7 TH/MM3 (4.0-11.0)
[2017-02-22 16:50] LABS: BLOOD, URINE NEG (NEG); GLUCOSE,URINE NEG (NEG); KETONE, URINE NEG (NEG); NITRITE,URINE NEG (NEG); URINE COLOR LIGHT-YELLOW (YELLW/STRAW)
[2017-02-22 16:53] LABS: APTT (PATIENT) 32.2 SEC (24.3-30.1); INTERNATIONAL NORMALIZED RATIO 1.2 RATIO; PROTHROMBIN TIME - PATIENT 12.8 SEC (9.8-11.6)
[2017-02-22 16:55] LABS: ALT (GPT) 19 U/L (12-78); ANION GAP 9 MEQ/L (5-15); AST (GOT) 16 U/L (15-37); BICARBONATE 22.3 MEQ/L (21.0-32.0); BLOOD UREA NITROGEN 27 MG/DL (7-18); CHLORIDE 99 MEQ/L (98-107); GLOMERULAR FILTRATION RATE 43 ML/MIN (>89); POTASSIUM 4.8 MEQ/L (3.5-5.1); SODIUM (NA) 130 MEQ/L (136-145)
[2017-02-22 16:56] LABS: COMMENT (UR) CULT NOT INDICATED; CULTURE IF INDICATED CULT NOT INDICATED
[2017-02-22 16:58] LABS: ALKALINE PHOSPHATASE 80 U/L (45-117); TOTAL BILIRUBIN ADULT 0.3 MG/DL (0.2-1.0)
[2017-02-22] MEDS ORDERED: ACETAMINOPHEN/HYDROcodone 325 MG/5 MG TAB PO ONE (17:00)
[2017-02-22] MEDS ORDERED: VANCOMYCIN INJ 1,000 MG in SODIUM CHLOR 0.9% 250 ML INJ 250 ML IV ONE (17:45)
[2017-02-22] MEDS: SODIUM CHLOR 0.9% 1000 ML INJ 1,000 ML IV SCH (18:14)
[2017-02-22 19:39] VITALS: BP 112/55; PULSE 87; RESP 18; O2SAT 97
[2017-02-22] MEDS ORDERED: ACETAMINOPHEN 325 MG TAB PO PRN (20:00)
[2017-02-22] MEDS ORDERED: GLUCAGON 1 MG/ML VIAL OTHER PRN (20:00)
[2017-02-22] MEDS ORDERED: MORPHINE SULFATE 4 MG/ML INJ IV PRN (20:00)
[2017-02-22] MEDS ORDERED: Vancomycin Consult Pharmacy 1 EA OTHER SCH (20:00)
[2017-02-22] MEDS ORDERED: ONDANSETRON HCL 4 MG/2 ML VIAL IVP PRN (20:00)
[2017-02-22] MEDS ORDERED: DEXTROSE 50% IN WATER 50 ML VIAL(D50) IV PRN (20:00)
[2017-02-22] MEDS ORDERED: SODIUM CHLORIDE 0.9% FLUSH 10 ML FLUSH IV FLUSH PRN (20:00)
[2017-02-22] MEDS ORDERED: LACTULOSE SYRUP 20 GM/30 ML CUP PO PRN (20:00)
[2017-02-22] MEDS ORDERED: SODIUM CHLOR 0.9% 1000 ML INJ 1,000 ML IV ONE (20:00)
[2017-02-22] MEDS ORDERED: BISACODYL 10 MG SUPP RECTAL PRN (20:00)
[2017-02-22] MEDS ORDERED: MAGNESIUM HYDROXIDE SUSP 30 ML CUP PO PRN (20:00)
[2017-02-22] MEDS ORDERED: SENNOSIDES 8.6 MG TAB PO PRN (20:00)
--- NOTE | 2017-02-22 20:04 | HHI.HP ---
HPI Service [facility] Primary Care Physician Kimi Snow MD Admission Diagnosis left foot diabetic foot ulcer with cellulitis Diagnoses: (1) Sepsis Diagnosis: Principal (2) Left foot infection Diagnosis: Principal (3) PNA (pneumonia) Diagnosis: Principal (4) TERESA (acute kidney injury) Diagnosis: Principal (5) DM (diabetes mellitus) Diagnosis: Principal Travel History International Travel<30 Days: No Contact w/Intl Traveler <30 Da: No Traveled to Known Affected Are: No History of Present Illness This is a 61-year-old male with a PMH of HTN, DM, CAD, A-fib, CHF (Echo 06/11/15 w/ EF 25-30%) and Chronic Foot Infection who was sent to the ER by Dr. Lerner secondary to left foot infection for possible IV Antibiotics. Has been following w/ Wound Care for left foot infection, on Levaquin. MRI Foot 02/22/17 w/ soft tissue ulceration plantar aspect of foot without any significant deep connection, abscess or osteomyelitis. Patient reports worsening erythema of the left foot x1 day, w/ Temp 100.9 last night. On arrival, BP 121/58, HR 98, O2 sat 99% on RA, Afebrile. WBC 13.7. Creatinine 1.63, previously 1.21 on 01/04. INR 1.2. CXR with left basilar patchiness consistent with probable pneumonia. S/p Blood Cultures and Vanc in ER. Review of Systems Except as stated in HPI: all other systems reviewed are Neg ROS: 14 point review of systems otherwise negative. Past Family Social History Past Medical History PMH: HTN, DM, CAD, A-fib, CHF (Echo 06/11/15 w/ EF 25-30%) and Chronic Foot Infection Past Surgical History PAST SURGICAL HISTORY: AICD, CABG, Dental Extraction Allergies: Coded Allergies: cyclobenzaprine (Unverified Allergy, Severe, Flushing, 02/22/17) REDNESS lisinopril (Unverified Allergy, Unknown, Swelling, 02/22/17) ANGIOEDEMA Family History PAST FAMILY HISTORY: Reviewed. No h/o DM or CAD Social History PAST SOCIAL HISTORY: Negative for alcohol, tobacco or drugs. Physical Exam Vital Signs Vital Signs Date Time Temp Pulse Resp B/P Pulse Ox O2 Delivery O2 Flow Rate FiO2 02/22/17 19:39 87 18 112/55 97 Room Air 02/22/17 15:33 102 22 02/22/17 15:33 98.9 100 22 134/92 95 02/22/17 14:12 97.9 98 16 121/58 99 Physical Exam PE: GENERAL: Pleasant middle-aged white male in no acute distress. HEENT: PERRLA, EOMI. No scleral icterus or conjunctival pallor. No lid lag or facial droop. CARDIOVASCULAR: Regular rate and rhythm. No obvious murmurs to auscultation. No chest tenderness to palpation. RESPIRATORY: No obvious rhonchi or wheezing. Clear to auscultation. Breath sounds equal bilaterally. GASTROINTESTINAL: Abdomen soft, non-tender, nondistended. BS normal. MUSCULOSKELETAL: Extremities without clubbing, cyanosis, or edema. No obvious deformities. Left foot ulcer surrounding erythema extending up ankle, + drainage. NEUROLOGICAL: Awake, alert and oriented x4. No focal neurologic deficits. Moving both upper and lower extremities spontaneously. Laboratory Laboratory Tests Test 02/22/17 02/22/17 16:00 16:20 White Blood Count 13.7 Red Blood Count 3.36 Hemoglobin 9.7 Hematocrit 29.0 Mean Corpuscular Volume 86.4 Mean Corpuscular Hemoglobin 29.0 Mean Corpuscular Hemoglobin 33.6 Concent Red Cell Distribution Width 16.3 Platelet Count 332 Mean Platelet Volume 7.0 Neutrophils (%) (Auto) 82.2 Lymphocytes (%) (Auto) 7.2 Monocytes (%) (Auto) 8.5 Eosinophils (%) (Auto) 1.5 Basophils (%) (Auto) 0.6 Neutrophils # (Auto) 11.2 Lymphocytes # (Auto) 1.0 Monocytes # (Auto) 1.2 Eosinophils # (Auto) 0.2 Basophils # (Auto) 0.1 CBC Comment DIFF FINAL Differential Comment Erythrocyte Sedimentation Rate GREATER THAN 140 Prothrombin Time 12.8 Prothromb Time International 1.2 Ratio Activated Partial 32.2 Thromboplast Time Sodium Level 130 Potassium Level 4.8 Chloride Level 99 Carbon Dioxide Level 22.3 Anion Gap 9 Blood Urea Nitrogen 27 Creatinine 1.63 Estimat Glomerular Filtration 43 Rate Random Glucose 98 Calcium Level 9.4 Total Bilirubin 0.3 Aspartate Amino Transf 16 (AST/SGOT) Alanine Aminotransferase 19 (ALT/SGPT) Alkaline Phosphatase 80 C-Reactive Protein 14.50 Total Protein 9.0 Albumin 3.6 Urine Color LIGHT-YELLOW Urine Turbidity CLEAR Urine pH 6.0 Urine Specific [place] 1.008 Urine Protein NEG Urine Glucose (UA) NEG Urine Ketones NEG Urine Occult Blood NEG Urine Nitrite NEG Urine Bilirubin NEG Urine Urobilinogen LESS THAN 2.0 Urine Leukocyte Esterase NEG Urine RBC LESS THAN 1 Urine WBC LESS THAN 1 Microscopic Urinalysis Comment CULT NOT INDICATED Date/Time Procedure Status Source Growth 02/22/17 16:00 Aerobic Blood Culture Received Blood Peripheral Pending 02/22/17 16:00 Anaerobic Blood Culture Received Blood Peripheral Pending Result Diagram: 02/22/17 1600 02/22/17 1600 Assessment and Plan Problem List: (1) Sepsis ICD Code: A41.9 Status: Acute (2) Left foot infection ICD Code: L08.9 Status: Acute (3) PNA (pneumonia) ICD Code: J18.9 Status: Acute (4) TERESA (acute kidney injury) ICD Code: N17.9 Status: Acute (5) DM (diabetes mellitus) ICD Code: E11.9 Status: Acute Assessment and Plan A/P: 1. Sepsis: Temp 100.9, HR 98, WBC 13.7, Source-PNA/Left Foot Infection. S/p Blood Cultures and Vanc in ER. Follow up cultures, continue Vanc, add Cefepime. 2. Left Foot Infection: Acute on Chronic. Follows w/ Dr. Lerner/Wound Clinic as outpatient. MRI Foot 02/22/17 w/ soft tissue ulceration, no osteomyelitis, images reviewed by me. S/p Vanc in ER, continue w/ Vanc/Cefepime, Wound Consult for further evaluation, repeat labs in am. 3. PNA: CXR w/ LLL infiltrate, images reviewed by me. IV Abx, DuoNeb prn as needed. 4. TERESA: Creatinine 1.63, producing 1.21 on 01/04/17. UA negative. IVF for hydration. Repeat labs in a.m. 5. DM: Sliding scale with Accu-Cheks. Hold Metformin secondary to renal insufficiency and sepsis. 6. DVT Prophylaxis: Heparin sq 7. Social work for DC planning as needed. 8. Case discussed at length with ER physician. Physician Certification 2 Midnight Certification Type: Admission for Inpatient Services Order for Inpatient Services The services are ordered in accordance with Medicare regulations or non- Medicare payer requirements, as applicable. In the case of services not specified as inpatient-only, they are appropriately provided as inpatient services in accordance with the 2-midnight benchmark. Estimated LOS (days): 2 days is the estimated time the patient will need to remain in the hospital, assuming treatment plan goals are met and no additional complications. Post-Hospital Plan: Not yet determined Nano Ferreira MD Feb 22, 2017 20:04
[2017-02-22] MEDS: SODIUM CHLORIDE 0.9% FLUSH 10 ML FLUSH IV FLUSH SCH (21:00)
[2017-02-22] MEDS: INSULIN ASPART SUPPLEMENTAL SCALE SQ SCH (21:00)
[2017-02-22 22:04] VITALS: BP 99/54; PULSE 88; RESP 18; TEMP 98.2; O2SAT 96
[2017-02-23] VITALS (7 sets, daily range): BP systolic 98–120; BP diastolic 55–63; PULSE 78–110; RESP 16–20; TEMP 98.2–98.7; O2SAT 94–97
[2017-02-23] MEDS: DOCUSATE SODIUM 50 MG/SENNA 8.6 MG TAB PO SCH ×3 (00:12→21:00)
[2017-02-23] MEDS: FERROUS SULFATE 325 MG (65 MG ELEMENTAL IRON) TAB PO SCH ×3 (00:12→21:19)
[2017-02-23] MEDS: VENLAFAXINE HCL XR 75 MG CAP PO SCH ×3 (00:12→21:19)
[2017-02-23] MEDS: FUROSEMIDE 40 MG TAB PO SCH ×3 (00:12→21:18)
[2017-02-23] MEDS: GABAPENTIN 100 MG CAP PO SCH ×5 (00:12→21:19)
[2017-02-23] MEDS: clonazePAM 0.5 MG TAB PO SCH ×3 (00:12→21:18)
[2017-02-23] MEDS: HEPARIN SODIUM - SQ 10,000 UNITS/ML VIAL SQ SCH ×2 (00:12→08:44)
[2017-02-23] MEDS: CARVEDILOL 6.25 MG TAB PO SCH ×3 (00:12→21:18)
[2017-02-23] MEDS: CEFEPIME INJ 1,000 MG in SODIUM CHLORIDE 0.9% INJ 100 ML IV SCH ×3 (00:13→21:19)
[2017-02-23] MEDS: ATORVASTATIN 80 MG TAB PO SCH ×2 (00:13→21:19)
[2017-02-23] MEDS: LEVOTHYROXINE SODIUM 25 MCG TAB PO SCH (06:44)
[2017-02-23] MEDS: SODIUM CHLOR 0.9% 1000 ML INJ 1,000 ML IV SCH (06:46)
[2017-02-23] MEDS: INSULIN ASPART SUPPLEMENTAL SCALE SQ SCH ×4 (07:29→21:36)
[2017-02-23] MEDS: ASPIRIN 81 MG CHEW TAB PO SCH (08:43)
[2017-02-23] MEDS: PIOGLITAZONE HCL 45 MG TAB PO SCH (08:43)
[2017-02-23] MEDS: SPIRONOLACTONE 25 MG TAB PO SCH ×2 (08:43→18:01)
[2017-02-23] MEDS: glipiZIDE 5 MG TAB PO SCH (08:44)
[2017-02-23] MEDS: MULTIVITAMIN TAB PO SCH (08:44)
[2017-02-23] MEDS: SODIUM CHLORIDE 0.9% FLUSH 10 ML FLUSH IV FLUSH SCH ×2 (08:45→21:19)
[2017-02-23] MEDS ORDERED: PNEUMOCOCCAL POLYVALENT INJ 25 MCG/0.5 ML SYR IM ONE (09:00)
[2017-02-23] MEDS: ACETAMINOPHEN/HYDROcodone 325 MG/5 MG TAB PO PRN ×3 (09:09→18:01)
--- NOTE | 2017-02-23 09:19 | EKG ---
Date Performed: 02/22/2017 Time Performed: 16:48:01 PTAGE: 61 years EKG: ELECTRONIC VENTRICULAR PACEMAKER ABNORMAL RHYTHM ECG Compared to prior tracing no significa nt change PREVIOUS TRACING : 01/04/2017 07.16 DOCTOR: Cheko Helm Interpretating Date/Time 02/23/2017 09:17:07
[2017-02-23] MEDS: VANCOMYCIN 1,000 MG/NS 250 ML IV SCH ×2 (14:15)
[2017-02-23 15:36] LABS: AUTOMATED NEUTROPHIL # 7.4 TH/MM3 (1.8-7.7); BASOPHIL # 0.1 TH/MM3 (0-0.2); BASOPHIL % 0.6 % (0.0-2.0); EOSINOPHIL # 0.2 TH/MM3 (0-0.4); EOSINOPHIL % 2.1 % (0.0-4.0); HEMO FLAGS DIFF FINAL; LYMPH % 11.5 % (9.0-44.0); LYMPHOCYTE # 1.1 TH/MM3 (1.0-4.8); MEAN CELL VOLUME 85.4 FL (80.0-100.0); MEAN CORPUSCULAR HEMOGLOBIN 28.8 PG (27.0-34.0); MEAN CORPUSCULAR HGB CONC 33.7 % (32.0-36.0); MONO % 9.5 % (0.0-8.0); NEUT % 76.3 % (16.0-70.0); PLATELET COUNT 266 TH/MM3 (150-450); RED BLOOD COUNT 2.92 MIL/MM3 (4.50-5.90); RED CELL DISTRIBUTION WIDTH 16.5 % (11.6-17.2); WHITE BLOOD COUNT 9.7 TH/MM3 (4.0-11.0)
[2017-02-23 16:03] LABS: ALKALINE PHOSPHATASE 69 U/L (45-117); ALT (GPT) 18 U/L (12-78); ANION GAP 9 MEQ/L (5-15); AST (GOT) 15 U/L (15-37); BICARBONATE 21.2 MEQ/L (21.0-32.0); BLOOD UREA NITROGEN 25 MG/DL (7-18); CHLORIDE 100 MEQ/L (98-107); GLOMERULAR FILTRATION RATE 49 ML/MIN (>89); POTASSIUM 4.9 MEQ/L (3.5-5.1); SODIUM (NA) 130 MEQ/L (136-145); TOTAL BILIRUBIN ADULT 0.3 MG/DL (0.2-1.0)
[2017-02-23] MEDS ORDERED: LISINOPRIL 5 MG TAB PO SCH (16:15)
[2017-02-23] MEDS ORDERED: FUROSEMIDE 40 MG/4 ML VIAL IV PUSH ONE (16:30)
--- NOTE | 2017-02-23 16:44 | PD.WCN.NOT ---
Wound Consult Description: Diabetic L foot plantar foot ulcer just below great toe. Communicated with: RN Miriam Marrufo pod and Doctor Madisyn Recommendation: Consult podiatry for possible debridement Please cleanse wound to L foot plantar just below great toe with wound cleanser . Apply Maxorb extra AG packed in wound bed to fill in space and cover with dry gauze pads. Secure dressing with rolled gauze and tape and change every other day until seen by podiatry. Additional Information: Patient seen on H pod CDU for evaluation of Diabetic foot infection. Removed rolled gauze and gauze pads in place to reveal wound to L foot plantar surface just below great toe. Wound bed presents with ~30% black eschar, ~40% white tissue and ~30% pink tissue. Wound margins are well defined with macerated hyperkeratotic tissue from 12 to 2 o'clock that is also noted from 6 and 8 o' clock. Erythema is noted to entire L great toe. Undermining is noted between 1 and 2 o'clock, but unable to assess due patient tolerance.Wound has scant ybarra drainage that has a musty odor.Wound measures 2 cm x 2.5 cm x 0.5cm. Cleansed wound with wound cleanser and applied Maxorb extra AG packed in wound bed and covered with dry 2x2 gauze pads and covered with dry 4x4 gauze pads. Secured dressing with rolled gauze and tape. Alma Rosa Turk [facility] Feb 23, 2017 16:43
--- NOTE | 2017-02-23 16:58 | HHI.PR ---
Subjective Remarks Follow-up on infected diabetic foot ulcer. Says he feels okay overall, less drainage from his foot Objective Vital Signs Date Time Temp Pulse Resp B/P Pulse Ox O2 Delivery O2 Flow Rate FiO2 02/23/17 16:20 98.6 83 16 101/57 97 02/23/17 12:20 98.7 78 18 105/57 97 02/23/17 08:18 98.5 83 18 113/55 97 02/23/17 06:18 98.3 89 20 99/56 94 02/23/17 00:29 98.4 89 18 106/56 96 02/22/17 22:04 98.2 88 18 99/54 96 02/22/17 19:39 87 18 112/55 97 Room Air I/O 02/22/17 02/22/17 02/22/17 02/23/17 02/23/17 02/23/17 07:00 15:00 23:00 07:00 15:00 23:00 Intake Total 200 ml Balance 200 ml Intake Oral 200 ml Result Diagram: 02/23/17 1509 02/23/17 1509 Objective Remarks GENERAL: Resting comfortably in bed, no acute distress CARDIOVASCULAR: Regular rate and rhythm without murmurs, gallops, or rubs. RESPIRATORY: Breath sounds equal and clear bilaterally. Unlabored breathing GASTROINTESTINAL: Abdomen soft, non-tender, nondistended. MUSCULOSKELETAL: No cyanosis, or edema. Left foot dressed, packing at the anterior base of first metatarsal, no obvious drainage noted. No dorsalis pedis pulses palpable in left foot, dorsalis pedis pulse palpable right foot. A/P Problem List: (1) Left foot infection ICD Code: L08.9 (2) Cellulitis ICD Code: L03.90 (3) Sepsis ICD Code: A41.9 (4) DM (diabetes mellitus) ICD Code: E11.9 (5) Hyperlipidemia ICD Code: E78.5 Assessment and Plan A/P: 1. Sepsis: White count normalizing today, afebrile since admission. Source-PNA /Left Foot Infection. Blood cultures pending. Treat as below. We'll stop normal saline infusion given that the patient has a history of heart failure and since also he is receiving fluids through antibiotics. 2. Left Foot Infection: Acute on Chronic. Follows w/ Dr. Lerner/Wound Clinic as outpatient. MRI Foot 02/22/17 w/ soft tissue ulceration, no osteomyelitis, images reviewed by me. S/p Vanc in ER, continue w/ Vanc/Cefepime, Wound Consult appreciating recommendations, consulting podiatry. Risk of resistance to multiple by mouth antibiotics given and patient was on Bactrim coming in to admission and prior to this was on Levaquin. May touch base with ID and or/set up PICC line for patient to receive antibiotics upon going home. Ordering procalcitonin. 3. PNA: CXR w/ LLL infiltrate, images reviewed by me. IV Abx, DuoNeb prn as needed. 4. TERESA: Creatinine 1.63, producing 1.21 on 01/04/17. UA negative. Fl Repeat labs in a.m. 5. DM: Sliding scale with Accu-Cheks. Hold Metformin secondary to renal insufficiency and sepsis. 6. CHFrEF: Restarting home losartan, continue spironolactone 7. DVT Prophylaxis: changing to lovenox. 8. Social work for DC planning as needed. 9. Case discussed at length with ER physician. 10. CAD - restarting patient's Brillinta given recent stent placement. Problem Qualifiers (1) DM (diabetes mellitus): Qualified Code: E11.42 - Type 2 diabetes mellitus with diabetic polyneuropathy , without long-term current use of insulin Reid Mars MD Feb 23, 2017 16:58
[2017-02-23] MEDS ORDERED: ENOXAPARIN SODIUM 30 MG/0.3 ML SYRINGE SQ SCH (17:00)
[2017-02-23] MEDS ORDERED: LOSARTAN 25 MG TAB PO SCH (18:00)
[2017-02-23] MEDS: TICAGRELOR 90 MG TAB PO SCH (21:18)
[2017-02-24 05:00] VITALS: BP 95/50; PULSE 91; RESP 19; TEMP 98.5; O2SAT 96
[2017-02-24] MEDS: LEVOTHYROXINE SODIUM 25 MCG TAB PO SCH (06:31)
[2017-02-24] MEDS: VANCOMYCIN 1,000 MG/NS 250 ML IV SCH ×2 (06:32)
[2017-02-24] MEDS: INSULIN ASPART SUPPLEMENTAL SCALE SQ SCH ×2 (06:47→11:00)
[2017-02-24 08:11] VITALS: BP 106/59; PULSE 87; RESP 16; TEMP 98.8; O2SAT 99
[2017-02-24] MEDS: SPIRONOLACTONE 25 MG TAB PO SCH (08:52)
[2017-02-24] MEDS: GABAPENTIN 100 MG CAP PO SCH ×2 (08:52→15:58)
[2017-02-24] MEDS: MULTIVITAMIN TAB PO SCH (08:52)
[2017-02-24] MEDS: DOCUSATE SODIUM 50 MG/SENNA 8.6 MG TAB PO SCH (08:53)
[2017-02-24] MEDS: TICAGRELOR 90 MG TAB PO SCH (08:53)
[2017-02-24] MEDS: ASPIRIN 81 MG CHEW TAB PO SCH (08:53)
[2017-02-24] MEDS: PIOGLITAZONE HCL 45 MG TAB PO SCH (08:54)
[2017-02-24] MEDS: glipiZIDE 5 MG TAB PO SCH (08:54)
[2017-02-24] MEDS: CARVEDILOL 6.25 MG TAB PO SCH (08:55)
[2017-02-24] MEDS: FUROSEMIDE 40 MG TAB PO SCH (08:55)
[2017-02-24] MEDS: FERROUS SULFATE 325 MG (65 MG ELEMENTAL IRON) TAB PO SCH (08:56)
[2017-02-24] MEDS: VENLAFAXINE HCL XR 75 MG CAP PO SCH (08:56)
[2017-02-24] MEDS: CEFEPIME INJ 1,000 MG in SODIUM CHLORIDE 0.9% INJ 100 ML IV SCH (08:57)
[2017-02-24] MEDS: SODIUM CHLORIDE 0.9% FLUSH 10 ML FLUSH IV FLUSH SCH (09:02)
[2017-02-24] MEDS: ACETAMINOPHEN/HYDROcodone 325 MG/5 MG TAB PO PRN (09:03)
--- NOTE | 2017-02-24 10:41 | PD.POD.CON ---
Patient Intake Chief Complaint Diabetic foot ulceration left Consult Requested by Dr. Branham Reason for Consult Evaluation and treatment of ulceration left foot Primary Care Physician Kimi Snow MD History of Present Illness Patient is a 61-year-old diabetic male with peripheral neuropathy who developed an ulceration on the plantar aspect of the left foot between the first and second toes. His insurance sent home health wound nurse who has been debriding it and treating it with Betadine and Iodosorb. Culture and sensitivity from home according to the patient grew out staph species sensitive to Cipro. Patient has been showering and bathing. Coded Allergies: cyclobenzaprine (Unverified Allergy, Severe, Flushing, 02/22/17) REDNESS lisinopril (Unverified Allergy, Unknown, Swelling, 02/22/17) ANGIOEDEMA Preferred Language to Discuss: Chinese Barriers to Learning: None Teaching Method: Discussion Vital Signs Date Time Temp Pulse Resp B/P Pulse Ox O2 Delivery O2 Flow Rate FiO2 02/24/17 08:11 98.8 87 16 106/59 99 02/24/17 05:00 98.5 91 19 95/50 96 02/23/17 23:50 98.5 110 20 98/55 96 02/23/17 20:11 98.2 103 18 120/63 96 02/23/17 16:20 98.6 83 16 101/57 97 02/23/17 12:20 98.7 78 18 105/57 97 Pain scale used: 0-10 numeric scale Pain score: 1 Medications Current Medications Sodium Chloride (NS 1000 ml Inj) 1,000 ml @ 70 mls/hr [id number] IV Last administered on 02/23/17 06:46; Start 02/22/17 at 15:45; Stop 02/23/17 at 16:14 ; Status DC Acetaminophen/ Hydrocodone Bitart 1 tab 1 tab ONCE ONCE PO Last administered on 02/22/17 17:45; Start 02/22/17 at 17:00; Stop 02/22/17 at 17:01; Status DC Vancomycin HCl/ Sodium Chloride (Vancomycin Inj/ NS 250 ml Inj) 250 ml @ 250 mls/hr ONCE ONCE IV Last administered on 02/22/17 18:15; Start 02/22/17 at 17 :45; Stop 02/22/17 at 18:44; Status DC Dextrose (D50w (Vial) Inj) 50 ml UNSCH PRN IV HYPOGLYCEMIA-SEE COMMENTS; Start 02/22/17 at 20:00 Glucagon (Glucagon Inj) 1 mg UNSCH PRN OTHER HYPOGLYCEMIA-SEE COMMENTS; Start 02/22/17 at 20:00 Insulin Aspart 1 1 ACHS SLIDING SCALE SQ Last administered on 02/24/17 06:47 ; Start 02/22/17 at 21:00 Pharmacy Profile Note 0 ml @ 0 mls/hr UNSCH OTHER ; Start 02/22/17 at 20:00 Cefepime HCl 1000 mg/Sodium Chloride 100 ml @ 200 mls/hr Q12H IV Last administered on 02/24/17 08:57; Start 02/22/17 at 21:00 Sodium Chloride (NS 1000 ml Inj) 1,000 ml @ 100 mls/hr Q10H ONCE IV Last administered on 02/23/17 00:13; Start 02/22/17 at 20:00; Stop 02/23/17 at 05:59 ; Status DC Sodium Chloride (NS Flush) 2 ml UNSCH PRN IV FLUSH FLUSH AFTER USING IV ACCESS Last administered on 02/24/17 09:00; Start 02/22/17 at 20:00 Sodium Chloride (NS Flush) 2 ml BID IV FLUSH Last administered on 02/24/17 09: 02; Start 02/22/17 at 21:00 Ondansetron HCl (Zofran Inj) 4 mg Q6H PRN IVP NAUSEA OR VOMITING; Start at 20:00 Heparin Sodium (Porcine) (Heparin Inj) 5,000 units Q12H SQ Last administered on 02/23/17 08:44; Start 02/22/17 at 21:00; Stop 02/23/17 at 16:20; Status DC Acetaminophen (Tylenol) 650 mg Q6H PRN PO FEVER/PAIN SCALE 1 TO 2; Start at 20:00 Acetaminophen/ Hydrocodone Bitart (Justin 5-325 Mg) 1 tab Q4H PRN PO PAIN SCALE 3 TO 5 Last administered on 02/24/17 09:03; Start 02/22/17 at 20:00 Morphine Sulfate (Morphine Inj) 2 mg Q3H PRN IV Pain 6-10; Start 02/22/17 at 20 :00 Senna/Docusate Sodium (Radha-Colace) 1 tab BID PO Last administered on 08:53; Start 02/22/17 at 21:00 Magnesium Hydroxide (Milk Of Magnesia Liq) 30 ml Q12H PRN PO MILD - MODERATE CONSTIPATION; Start 02/22/17 at 20:00 Sennosides (Senokot) 17.2 mg Q12H PRN PO MODERATE - SEVERE CONSTIPATION; Start 02/22/17 at 20:00 Bisacodyl (Dulcolax Supp) 10 mg DAILY PRN RECTAL SEVERE CONSITIPATION; Start at 20:00 Lactulose (Lactulose Liq) 30 ml DAILY PRN PO SEVERE CONSITIPATION; Start at 20:00 Aspirin (Aspirin Chew) 81 mg DAILY PO Last administered on 02/24/17 08:53; Start 02/23/17 at 09:00 Atorvastatin Calcium (Lipitor) 80 mg HS PO Last administered on 02/23/17 21:19 ; Start 02/22/17 at 21:00 Carvedilol (Coreg) 6.25 mg BID PO Last administered on 02/24/17 08:55; Start 02/22/17 at 21:00 Clonazepam (KlonoPIN) 0.5 mg BID PO Last administered on 02/23/17 21:18; Start 02/22/17 at 21:00 Ferrous Sulfate (Ferrous Sulfate) 325 mg BID PO Last administered on 02/24/17 08:56; Start 02/22/17 at 21:00 Furosemide (Lasix) 40 mg BID PO Last administered on 02/24/17 08:55; Start at 21:00 Gabapentin (Neurontin) 100 mg QID PO Last administered on 02/24/17 08:52; Start 02/22/17 at 21:00 Glipizide (Glucotrol) 5 mg DAILY PO Last administered on 02/24/17 08:54; Start 02/23/17 at 09:00 Levothyroxine Sodium (Synthroid) 25 mcg DAILY@06 PO Last administered on 06:31; Start 02/23/17 at 06:00 Pioglitazone HCl (Actos) 45 mg DAILY PO Last administered on 02/24/17 08:54; Start 02/23/17 at 09:00 Spironolactone (Aldactone) 25 mg BIDPC PO Last administered on 02/24/17 08:52 ; Start 02/23/17 at 09:00 Multivitamins (Theragran) 1 tab DAILY PO Last administered on 02/24/17 08:52; Start 02/23/17 at 09:00 Venlafaxine HCl (Effexor Xr) 75 mg Q12H PO Last administered on 02/24/17 08:56 ; Start 02/22/17 at 20:00 Pneumococcal Polyvalent Vaccine 25 mcg 25 mcg ONCE ONCE IM Last administered on 02/23/17 08:46; Start 02/23/17 at 09:00; Stop 02/23/17 at 09:01; Status DC Vancomycin HCl/ Sodium Chloride (Vancomycin Inj/ NS 250 ml Inj) 250 ml @ 250 mls/hr Q18H IV Last administered on 02/24/17 06:32; Start 02/23/17 at 13:00 Miscellaneous Information SPECIFIC LAB TO BE ... ONCE ONCE .XX ; Start 02/25 at 23:45; Stop 02/25/17 at 23:46 Lisinopril (Prinivil) 5 mg DAILY PO ; Start 02/23/17 at 16:15; Status UNV Furosemide (Lasix Inj) 40 mg ONCE ONCE IV PUSH ; Start 02/23/17 at 16:30; Stop 02/23/17 at 16:31; Status DC Enoxaparin Sodium (Lovenox Inj) 30 mg Q24H SQ ; Start 02/23/17 at 17:00 Losartan Potassium (Cozaar) 25 mg DAILY PO Last administered on 02/23/17 18:36 ; Start 02/23/17 at 18:00 Ticagrelor (Brilinta) 90 mg BID PO Last administered on 02/24/17 08:53; Start 02/23/17 at 21:00 Past, Family & Social History Past Medical History PFSH Reviewed: Yes Endocrine: REPORTS HX OF: Diabetes mellitus Respiratory: REPORTS HX OF: Other respiratory history Cardiovascular: REPORTS HX OF: Atrial fibrillation, Heart failure, Hypertension Genitourinary: REPORTS HX OF: Kidney disease Past Surgical History Cardiovascular: REPORTS HX OF: CABG surgery, Pacemaker Review of Systems Constitutional: COMPLAINS OF: Good general health, DENIES: Recent weight change, Fever, Fatigue, Pain Eyes: DENIES: Blurred/Double vision, Hx eye disease Ears/Nose/Mouth/Throat: DENIES: Ringing in ears, Change in hearing, Deafness/ hearing aid, Sore throat, Trouble swallowing Cardiovascular: COMPLAINS OF: Hx CHF / chest pain, Hx hypertension Respiratory: DENIES: Frequent colds, Difficulty breathing, Cough (productive?) , Asthma / hay fever, Emphysema, TB Gastrointestinal: DENIES: Heartburn, Vomiting, Constipation, Diarrhea, Black Stools, Blood in stools, Peptic ulcer, Abdominal pain Genitourinary: DENIES: Renal disease, Dialysis, Freq or burning urination, Blood in urine, Difficulty in urination, Incontinence Musculoskeletal: DENIES: Leg pain (rest or walk), Back pain, Joint pain/swell/ dysarthr, Deformaties Integumentary: DENIES: Rash, Hx masses/lumps, Birthmrk/wart/lump/nodule, Slow to heal after cuts, Bleeding/bruising tendncy Neurological: COMPLAINS OF: Numbness/tingling, Changes in sensation Psychiatric: DENIES: Depression/anxiety, Change in memory, Insomnia Endocrine: DENIES: Thyroid disease, Heat/cold intolerance, Excessive thirst Hematologic/Lymphatic: DENIES: Blood borne disease, Anemia, Blood abnormalities Allergic/Immunologic: DENIES: Rheumatoid Arthritis, Skin/Food/Drug reaction, Lupus, Sickle Cell disease, Scleroderma, Vasculitis Exam-Podiatry Constitutional General appearance: comfortable Nutritional status: normal Orientation: alert and oriented x3 Dermatological Exam Skin Temp - Right: Within Normal Limits Skin Texture - Right: Within Normal Limits Skin Elasticity - Right: Within Normal Limits Skin Tugor - Right: Within Normal Limits Hair Growth - Right: Within Normal Limits Pigmentation - Right: Within Normal Limits Skin Temp - Left: Within Normal Limits Skin Texture - Left: Within Normal Limits Skin Elasticity - Left: Within Normal Limits Skin Tugor - Left: Within Normal Limits Hair Growth - Left: Within Normal Limits Pigmentation - Left: Within Normal Limits Ulcers: Location/Measurements 2 cm x 2 cm ulceration in the first plantar interspace left foot. Some odor present. No ascending cellulitis or purulence seen. Granulating base present. Vascular/Lymphatic Exam R Dorsails Pedis: Palpable L Dorsails Pedis: Palpable R Posterior Tibial: Palpable L Posterior Tibial: Palpable Neurologic Exam Present on right: Tingling, Paraesthesia Present on left: Tingling, Paraesthesia Muscle Strength Dorsiflexion (Right): Normal Plantarflexion (Right): Normal Inversion (Right): Normal Eversion (Right): Normal Digital (Right): Normal Dorsiflexion (Left): Normal Plantarflexion (Left): Normal Inversion (Left): Normal Eversion (Left): Normal Digital (Left): Normal Foot Range of Motion Dorsiflexion (Right): Normal Plantarflexion (Right): Normal Inversion (Right): Normal Eversion (Right): Normal Digital (Right): Normal Dorsiflexion (Left): Normal Plantarflexion (Left): Normal Inversion (Left): Normal Eversion (Left): Normal Digital (Left): Normal Lab and Radiology Results Laboratory Laboratory Tests Test 02/22/17 02/23/17 16:00 15:09 White Blood Count 13.7 TH/MM3 9.7 TH/MM3 Red Blood Count 3.36 MIL/MM3 2.92 MIL/MM3 Hemoglobin 9.7 GM/DL 8.4 GM/DL Hematocrit 29.0 % 25.0 % Mean Corpuscular Volume 86.4 FL 85.4 FL Mean Corpuscular Hemoglobin 29.0 PG 28.8 PG Mean Corpuscular Hemoglobin 33.6 % 33.7 % Concent Red Cell Distribution Width 16.3 % 16.5 % Platelet Count 332 TH/MM3 266 TH/MM3 Mean Platelet Volume 7.0 FL 6.9 FL Neutrophils (%) (Auto) 82.2 % 76.3 % Lymphocytes (%) (Auto) 7.2 % 11.5 % Monocytes (%) (Auto) 8.5 % 9.5 % Eosinophils (%) (Auto) 1.5 % 2.1 % Basophils (%) (Auto) 0.6 % 0.6 % Neutrophils # (Auto) 11.2 TH/MM3 7.4 TH/MM3 Lymphocytes # (Auto) 1.0 TH/MM3 1.1 TH/MM3 Monocytes # (Auto) 1.2 TH/MM3 0.9 TH/MM3 Eosinophils # (Auto) 0.2 TH/MM3 0.2 TH/MM3 Basophils # (Auto) 0.1 TH/MM3 0.1 TH/MM3 CBC Comment DIFF FINAL DIFF FINAL Differential Comment Erythrocyte Sedimentation Rate GREATER THAN 140 mm/hr Laboratory Tests Test 02/22/17 02/23/17 16:00 15:09 Sodium Level 130 MEQ/L 130 MEQ/L Potassium Level 4.8 MEQ/L 4.9 MEQ/L Chloride Level 99 MEQ/L 100 MEQ/L Carbon Dioxide Level 22.3 MEQ/L 21.2 MEQ/L Anion Gap 9 MEQ/L 9 MEQ/L Blood Urea Nitrogen 27 MG/DL 25 MG/DL Creatinine 1.63 MG/DL 1.45 MG/DL Estimat Glomerular Filtration 43 ML/MIN 49 ML/MIN Rate Random Glucose 98 MG/DL 153 MG/DL Calcium Level 9.4 MG/DL 9.0 MG/DL Total Bilirubin 0.3 MG/DL 0.3 MG/DL Aspartate Amino Transf 16 U/L 15 U/L (AST/SGOT) Alanine Aminotransferase 19 U/L 18 U/L (ALT/SGPT) Alkaline Phosphatase 80 U/L 69 U/L C-Reactive Protein 14.50 MG/DL Total Protein 9.0 GM/DL 7.4 GM/DL Albumin 3.6 GM/DL 2.9 GM/DL Procalcitonin LESS THAN 0.05 ng/mL Microbiology Date/Time Procedure Status Source Growth 02/22/17 16:00 Aerobic Blood Culture - Preliminary Resulted Blood Peripheral NO GROWTH IN 1 DAY 02/22/17 16:00 Anaerobic Blood Culture - Preliminary Resulted Blood Peripheral NO GROWTH IN 1 DAY 02/22/17 16:00 Aerobic Blood Culture - Preliminary Resulted Blood Peripheral NO GROWTH IN 1 DAY 02/22/17 16:00 Anaerobic Blood Culture - Preliminary Resulted Blood Peripheral NO GROWTH IN 1 DAY Radiology Last Impressions Chest X-Ray 02/22/17 1535 Signed Impressions: Service Date/Time: February 15:57 - CONCLUSION: Left basilar patchiness consistent with probable pneumonia. Clinical correlation is recommended. Thomas Acosta MD Assessment/Plan Problem List: (1) Left foot infection Status: Acute (2) DM (diabetes mellitus) Status: Chronic (3) Diabetic foot ulcer Status: Chronic Additional Plans & Procedures PLAN: Maxorb extra AG dressings. Patient could use IV antibiotics over the weekend and discharge home on Sunday. Follow-up with me in the wound center. Case management orders written. No baths or showers. Sponge bathe only. Problem Qualifiers (1) DM (diabetes mellitus): Qualified Code: E11.42 - Type 2 diabetes mellitus with diabetic polyneuropathy , without long-term current use of insulin (2) Diabetic foot ulcer: Qualified Code: E11.621 - Diabetic ulcer of left midfoot associated with type 2 diabetes mellitus, with fat layer exposed Ismael Eid DPM Feb 24, 2017 10:41
[2017-02-24 11:27] VITALS: BP 91/55; PULSE 78; RESP 16; TEMP 98.3; O2SAT 95
[2017-02-24] MEDS ORDERED: LOSARTAN 25 MG TAB PO SCH (12:45)
--- NOTE | 2017-02-24 13:39 | HHI.DCPOC ---
Discharge Care Plan Goals to Promote Your Health * To prevent worsening of your condition and complications * To maintain your health at the optimal level Maxorb extra AG dressings. Follow-up with Dr. Eid in the wound center. No baths or showers. Sponge bathe only. Directions to Meet Your Goals Take your medications as prescribed Follow your dietary instruction Follow activity as directed Keep your appointments as scheduled Take your immunizations and boosters as scheduled If your symptoms worsen call your PCP, if no PCP go to Urgent Care Center or Emergency Room Smoking is Dangerous to Your Health. Avoid second hand smoke Call the 24-hour hour crisis hotline for domestic abuse at Reid Mars MD Feb 24, 2017 13:38
--- NOTE | 2017-02-24 13:43 | HHI.DS ---
Discharge Summary Admission Date Feb 22, 2017 at 17:46 Discharge Date: Feb 24, 2017 Admitting Diagnosis left foot diabetic foot ulcer with cellulitis (1) Sepsis ICD Code: A41.9 Diagnosis: Principal (2) Left foot infection ICD Code: L08.9 Diagnosis: Secondary (3) PNA (pneumonia) ICD Code: J18.9 Diagnosis: Secondary (4) TERESA (acute kidney injury) ICD Code: N17.9 Diagnosis: Secondary (5) DM (diabetes mellitus) ICD Code: E11.9 Diagnosis: Secondary Procedures none Brief History - From Admission This is a 61-year-old male with a PMH of HTN, DM, CAD, A-fib, CHF (Echo 06/11/15 w/ EF 25-30%) and Chronic Foot Infection who was sent to the ER by Dr. Lerner secondary to left foot infection for possible IV Antibiotics. Has been following w/ Wound Care for left foot infection, on Levaquin. MRI Foot 02/22/17 w/ soft tissue ulceration plantar aspect of foot without any significant deep connection, abscess or osteomyelitis. Patient reports worsening erythema of the left foot x1 day, w/ Temp 100.9 last night. On arrival, BP 121/58, HR 98, O2 sat 99% on RA, Afebrile. WBC 13.7. Creatinine 1.63, previously 1.21 on 01/04. INR 1.2. CXR with left basilar patchiness consistent with probable pneumonia. S/p Blood Cultures and Vanc in ER. CBC/BMP: 02/23/17 1509 02/23/17 1509 Significant Findings Laboratory Tests Test 02/22/17 02/23/17 16:00 15:09 White Blood Count 13.7 TH/MM3 (4.0-11.0) Red Blood Count 3.36 MIL/MM3 2.92 MIL/MM3 (4.50-5.90) (4.50-5.90) Hemoglobin 9.7 GM/DL 8.4 GM/DL (13.0-17.0) (13.0-17.0) Hematocrit 29.0 % 25.0 % (39.0-51.0) (39.0-51.0) Neutrophils (%) (Auto) 82.2 % 76.3 % (16.0-70.0) (16.0-70.0) Lymphocytes (%) (Auto) 7.2 % (9.0-44.0) Monocytes (%) (Auto) 8.5 % (0.0-8.0) 9.5 % (0.0-8.0) Neutrophils # (Auto) 11.2 TH/MM3 (1.8-7.7) Monocytes # (Auto) 1.2 TH/MM3 (0-0.9) Erythrocyte Sedimentation Rate GREATER THAN 140 mm/hr (0-20) Prothrombin Time 12.8 SEC (9.8-11.6) Activated Partial 32.2 SEC Thromboplast Time (24.3-30.1) Sodium Level 130 MEQ/L 130 MEQ/L (136-145) (136-145) Blood Urea Nitrogen 27 MG/DL (7-18) 25 MG/DL (7-18) Creatinine 1.63 MG/DL 1.45 MG/DL (0.60-1.30) (0.60-1.30) Estimat Glomerular Filtration 43 ML/MIN (>89) 49 ML/MIN (>89) Rate C-Reactive Protein 14.50 MG/DL (0.00-0.30) Total Protein 9.0 GM/DL (6.4-8.2) Mean Platelet Volume 6.9 FL (7.0-11.0) Random Glucose 153 MG/DL (74-106) Albumin 2.9 GM/DL (3.4-5.0) PE at Discharge GENERAL: lying in bed comfortably RESPIRATORY: Unlabored breathing GASTROINTESTINAL: Abdomen soft, non-tender, nondistended. MUSCULOSKELETAL: left foot w/ debrided eschar at anterior aspect of base of 1st metatarsal with no visualization of bone, no purulence noted, chronic erythema over left toe otherwise as indicated by pt, Hospital Course Patient was admitted, started on IV fluids and vancomycin and cefepime. Blood cultures have been no growth to date, wound care had been consulted, apply dressings, podiatry was consulted also, were okay with discharge on 02/24 with by mouth antibiotic therapy and close follow-up on 02/26. Patient's white count had normalized and his pro-calcitonin was unremarkable, purulence drainage had stopped and patient overall felt back to baseline. Patient has met maximum benefit from hospitalization and is clinically stable for discharge. He will be prescribed clindamycin and Cipro upon discharge. Pt Condition on Discharge: Good Discharge Disposition: Disch w/ Home Health Serv Discharge Time: > 30 minutes Discharge Instructions Follow up Referrals: Appointment for Follow Up - 2-3 Days PCP Follow-up - 1 Week Reid Mars MD Feb 24, 2017 13:43
[2017-02-24] MEDS ORDERED: CLIN1CAP6 PO (13:49)
[2017-02-24] MEDS ORDERED: CIPR500T2 PO (13:49)
[2017-02-24 15:21] VITALS: BP 107/57; PULSE 82; RESP 18; TEMP 98.7; O2SAT 98
[2017-02-24] MEDS ORDERED: VANCOMYCIN INJ 1,750 MG in SODIUM CHLORID 0.9% 500 ML INJ 500 ML IV SCH (16:00)
[2017-02-27] MEDS ORDERED: PHARMACY ORDERED LAB ONE (15:45)
[2017-03-29] MEDS ORDERED: LEVA500T20 PO (10:21)
[2017-04-12] MEDS ORDERED: VANC1INJ2 IV (10:22)
[2017-04-19] MEDS ORDERED: CIPR-9 PO (09:49)
== END 2017-02-24 16:22 | disposition home health service (06) | DRG 872 ==
LOC: NEPE 14:10 → NEDA 17:46 → NEPHCDU 21:20
PROVIDERS: ADMIT Hospitalist; ATTEND Hospitalist
DX: A41.9 Sepsis, unspecified organism (principal); N17.9 Acute kidney failure, unspecified; E11.621 Type 2 diabetes mellitus with foot ulcer; E11.42 Type 2 diabetes mellitus with diabetic polyneuropathy; I11.0 Hypertensive heart disease with heart failure; I50.9 Heart failure, unspecified; L97.422 Non-pressure chronic ulcer of left heel and midfoot with fat layer exposed; L03.116 Cellulitis of left lower limb; I25.10 Atherosclerotic heart disease of native coronary artery without angina pectoris; L97.529 Non-pressure chronic ulcer of other part of left foot with unspecified severity; B95.8 Unspecified staphylococcus as the cause of diseases classified elsewhere; K21.9 Gastro-esophageal reflux disease without esophagitis; E78.5 Hyperlipidemia, unspecified; I25.2 Old myocardial infarction; Z95.1 Presence of aortocoronary bypass graft; Z87.891 Personal history of nicotine dependence; Z79.84 Long term (current) use of oral hypoglycemic drugs; Z23 Encounter for immunization
CPT/HCPCS: 71010; 73720; 80053; 81001; 82948; 84145; 85025; 85610; 85652; 85730; 86140; 87040; 90732; 93005; A9579; J0692; J1644; J1815; J3370; J7030; J7050; L3260

== ENCOUNTER → 2017-02-22 | Outpatient (CLI) | payer MEDICARE ==
[~2017-02-22] MED LIST changes: -APIX5TAB PO; -ASPI325T PO; +ASPI81CH25 PO; +ATOR1TAB18 PO; +BACT800T5 PO; +BRIL90TA PO; -CARV3.12 PO; +CARV6.252 PO; +CEFA2PLA5 IV; +CEFA2SOL IV; +CIPR-9 PO; +CIPR500T2 PO; +CITA40TA4 PO; +CLIN1CAP6 PO; -DULO60 PO; +EPIN1INJ21 IV PUSH; +EPIN1INJ21 SQ; +FERR140T PO; -FERR324T4 PO; +FERR325T20 PO; +FLOR250C PO; -FURO1TAB93 PO; +FURO40TA PO; +FURO80TA PO; +GABA100C4 PO; +GADODIAMIDE PF 287 MG/ML 20 ML VIAL (for RAD MRI) IV ONE; +GLIP5TAB8 PO; +HYDR-3533 PO; +KRIL500C2 PO; +LEVA500T20 PO; +LEVA750T9 PO; +LEVO25TA4 PO; -LISI-357 PO; +LOSA25TA PO; -METF500 PO; +METF500T PO; +MULT-159 PO; -MULT-65 PO; +NICO21DI25 T-DERMAL; -OMEG5CAP PO; +QUET1TAB8 PO; -SIMV40 PO; +SIMV40TA PO; +SODI1TAB PO; +SOLU250I IV PUSH; +SPIR25 PO; -SPIR25TA PO; +VANC1INJ2 IV; +VENL75TA PO; +ZETI10TA5 PO; +ZOFR4TAB PO
[2017-02-22 13:00] VITALS: BP 91/59; PULSE 82; RESP 16; O2SAT 93
[2017-02-22 13:10] VITALS: BP 117/65; PULSE 79; RESP 16; O2SAT 94
[2017-02-22 13:20] VITALS: BP 115/72; PULSE 75; RESP 16; O2SAT 94
[2017-02-22 13:30] VITALS: BP 119/55; PULSE 83; RESP 16; O2SAT 94
--- NOTE | 2017-02-22 14:25 | RADRPT ---
EXAM DATE/TIME: 02/22/2017 13:01 [facility] COMPARISON: No previous studies available for comparison. INDICATIONS : Osteomyelitis. Non healing wound between the second and third digits of left foot. CONTRAST: 20 cc Omniscan (gadodiamide) IV MEDICAL HISTORY : Diabetes mellitus type 2. Congestive heart failure. CAD. A-fib. Hypotension. SURGICAL HISTORY : CABG Pacemaker. Coronary artery stent. Ablation. ENCOUNTER: Initial ACUITY: 2 weeks PAIN SCORE: 0/10 LOCATION: Left foot. TECHNIQUE: Multiplanar, multisequence MRI examination was performed without contrast and after the intravenous a dministration of gadolinium. FINDINGS: There is a soft tissue ulceration in the plantar aspect of the foot evident on the sagittal images un derneath the second and third toes. No deep soft tissue fluid collections identified. The tissues uni formly enhancing around the ulceration. I don't see obvious abscess or necrosis. No obvious marrow r eplacement on the T1 images to confirm osteomyelitis. BONE/CARTILAGE: There some bony edema within the sesamoid bones particularly laterally underneath the first metatarsa l head . Articular cartilage signal is within normal limits. TENDONS: All of the visualized tendons are intact. There is significant edema throughout the plantar musculatu re including the abductor hallucis muscle and throughout the interosseous musculature. MISCELLANEOUS: Plantar aponeurosis is intact. Sinus tarsi is within normal limits. POST-CONTRAST: Enhancement throughout the plantar musculature including the flexor digitorum brevis muscle in the hi ndfoot likely related to altered weight-bearing and inflammation. CONCLUSION: 1. There appears to be a soft tissue ulceration plantar aspect of the foot without any significant de ep connection, abscess or evidence of osteomyelitis. 2. Soft tissue edema throughout the plantar aspect of the foot including both of the sesamoid bones a nd the plantar musculature could be due to altered weightbearing. Adair Coy MD on February 22, 2017 at 14:12 Board Certified Radiologist. This report was verified electronically.
== END ==
LOC: HRAD 11:49
PROVIDERS: ATTEND Family Medicine
DX: E11.621 Type 2 diabetes mellitus with foot ulcer (principal); L97.529 Non-pressure chronic ulcer of other part of left foot with unspecified severity
CPT/HCPCS: 73720; A9579

== ENCOUNTER 2017-02-27 12:18 | Inpatient (IN) | payer MEDICARE ==
[~2017-02-27] VITALS: Ht 177.8 cm; Wt 104.4 kg
[~2017-02-27 12:18] MED LIST changes: +CIPR500T2 PO; -CITA40TA4 PO; +CLIN1CAP6 PO; -LEVA750T9 PO; +VENL75TA PO; +ZETI10TA5 PO
[2017-02-27 12:19] VITALS: BP 127/60; PULSE 88; RESP 18; TEMP 98.8; O2SAT 99
--- NOTE | 2017-02-27 14:12 | PD ---
HPI Chief Complaint: Pain: Acute or Chronic Time Seen by Provider: 13:56 Travel History International Travel<30 days: No Contact w/Intl Traveler<30days: No Traveled to known affect area: No History of Present Illness HPI 61-year-old male with history of CAD, previous CO with stent placement, CHF, hypertension, A. fib, diabetes, recently hospitalized for foot ulcer on the left foot. He was discharged to follow-up with Dr. Eid for management of his foot. He states yesterday he began having a purple color the distal aspect of his left great toe and today the entire toe is purple. He also has worsening redness of the foot with streaks of red up the medial aspect of the left lower charities. He has significant pain. He has been febrile until today. He is on Cipro and clindamycin. Wound care came and evaluated him today and advised to come to the emergency department. Patient has no other symptoms to report this time. PFSH Past Medical History Hx Anticoagulant Therapy: Yes Asthma: No Atrial Fibrillation: Yes (ABLATION ) Blood Disorders: No Anxiety: Yes Depression: Yes Heart Rhythm Problems: Yes (HX OF V TACH WITH CARDIAC CATHS REQUIRING LIDOCAINE ) Cancer: No Cardiovascular Problems: Yes High Cholesterol: Yes Chemotherapy: No Chest Pain: Yes Congestive Heart Failure: Yes COPD: No Cerebrovascular Accident: No Coronary Artery Disease: Yes Diabetes: Yes Diminished Hearing: No Endocrine: Yes (DIABETES) Gastrointestinal Disorders: Yes (GERD) GERD: No Glaucoma: No Genitourinary: No Hepatitis: No Hiatal Hernia: No Hypertension: Yes Immune Disorder: No Implanted Vascular Access Dvce: Yes Musculoskeletal: No Neurologic: No Psychiatric: Yes Respiratory: Yes Immunizations Current: Yes Migraines: No Myocardial Infarction: Yes Radiation Therapy: No Renal Failure: No Seizures: No Sleep Apnea: No Thyroid Disease: No Ulcer: No Past Surgical History Abdominal Surgery: No AICD: No Arteriovenous Shunt: No Body Medical Devices: CARDIAC STENTS , current BIV ICD Cardiac Surgery: Yes (CABG x4 2000, STENTS X3 2005, STENTS X'S 1 2006 AND 2010) Coronary Artery Bypass Graft: Yes (QUAD) Coronary Stent: Yes (X 7) Ear Surgery: No Endocrine Surgery: No Eye Surgery: No Genitourinary Surgery: No Insulin Pump: No Joint Replacement: No Oral Surgery: Yes (TEETH REMOVED) Pacemaker: No Thoracic Surgery: Yes (CABG "02") Other Surgery: Yes Social History Alcohol Use: No Tobacco Use: No (1 PPD; STATES RECENTLY QUIT) Substance Use: No Allergies-Medications (Allergen,Severity, Reaction): Coded Allergies: cyclobenzaprine (Unverified Allergy, Severe, Flushing, 02/27/17) REDNESS lisinopril (Unverified Allergy, Unknown, Swelling, 02/27/17) ANGIOEDEMA Reported Meds & Prescriptions Reported Meds & Active Scripts Active Ciprofloxacin (Ciprofloxacin HCl) 500 Mg Tab 500 Mg PO BID Clindamycin (Clindamycin HCl) 300 Mg Cap 300 Mg PO Q6H Carvedilol 6.25 Mg Tab 6.25 Mg PO BID Brilinta (Ticagrelor) 90 Mg Tab 90 Mg PO BID Aspirin Low Strength (Aspirin) 81 Mg Chew 81 Mg PO DAILY Reported Simvastatin 40 Mg Tab 40 Mg PO HS Furosemide 80 Mg Tab 80 Mg PO BID Zetia (Ezetimibe) 10 Mg Tab 10 Mg PO HS Effexor (Venlafaxine HCl) 75 Mg Tab 75 Mg PO DAILY Nitrostat SL (Nitroglycerin) 0.4 Mg Subl 0.4 Mg SL DIRECTED PRN 1 tablet under the tongue as needed for chest pain. Repeat every 5 minutes for a total of 3 DOSES or call 911 if NO relief. Clonazepam 0.5 Mg Tab 0.5 Mg PO BID Levothyroxine (Levothyroxine Sodium) 25 Mcg Tab 25 Mcg PO DAILY Aldactone (Spironolactone) 25 Mg Tab 25 Mg PO BIDPC Gabapentin 100 Mg Cap 100 Mg PO QID Glipizide 5 Mg Tab 5 Mg PO DAILY Take 30 minutes before a meal Krill Oil 500 Mg Capsule 500 Mg PO BID Multivitamins (Multivitamin) 1 Each Tab.chew 1 Tab PO DAILY Ferosul (Ferrous Sulfate) 325 Mg Tablet 325 Mg PO BID Pioglitazone (Pioglitazone HCl) 45 Mg Tab 45 Mg PO DAILY Losartan (Losartan Potassium) 25 Mg Tab 25 Mg PO DAILY Metformin (Metformin HCl) 500 Mg Tab 500 Mg PO BID With meals Review of Systems Except as stated in HPI: all other systems reviewed are Neg Physical Exam Narrative GENERAL: Well-nourished but chronically ill-appearing male patient, in no acute distress SKIN: Focused skin assessment warm/dry. HEAD: Atraumatic. Normocephalic. EYES: Pupils equal and round. No scleral icterus. No injection or drainage. ENT: No nasal bleeding or discharge. Mucous membranes pink and moist. NECK: Trachea midline. No JVD. CARDIOVASCULAR: Regular rate and rhythm. No murmur appreciated. RESPIRATORY: No accessory muscle use. Clear to auscultation. Breath sounds equal bilaterally. GASTROINTESTINAL: Abdomen soft, non-tender, nondistended. Hepatic and splenic margins not palpable. MUSCULOSKELETAL: No obvious deformities. No clubbing. No cyanosis. Mild edema left distal lower extremity. The left great toe is purple with a 2 cm diameter ulceration on the plantar surface at the base of the left great toe. Erythema extends onto the dorsal aspect of the foot proximal approximately longterm. There is erythema streaking up the left medial extremity stopping just distal to the knee. Distal pulses are palpable in the right but dopplerable pedal pulses and palpable posterior tibialis on the left.. NEUROLOGICAL: Awake and alert. No obvious cranial nerve deficits. Motor grossly within normal limits. Normal speech. PSYCHIATRIC: Appropriate mood and affect; insight and judgment normal. Data Data Last Documented VS Vital Signs Date Time Temp Pulse Resp B/P (MAP) Pulse Ox O2 Delivery O2 Flow Rate FiO2 02/27/17 15:26 89 20 112/60 (77) 97 Room Air 02/27/17 12:19 98.8 Orders Orders Electrocardiogram (02/27/17 14:07) Complete Blood Count With Diff (02/27/17 14:07) Comprehensive Metabolic Panel (02/27/17 14:07) Prothrombin Time / Inr (Pt) (02/27/17 14:07) Act Partial Throm Time (Ptt) (02/27/17 14:07) Lactic Acid Sepsis Protocol (02/27/17 14:07) Urinalysis - C+S If Indicated (02/27/17 14:07) Blood Culture (02/27/17 14:07) Chest, Single Ap (02/27/17 14:07) Blood Glucose (02/27/17 14:07) Ecg Monitoring (02/27/17 14:07) Iv Access Insert/Monitor (02/27/17 14:07) Oximetry (02/27/17 14:07) Oxygen Administration (02/27/17 14:07) Vancomycin Inj (Vancomycin Inj) (02/27/17 14:15) Piperacil-Tazo 3.375 Gm Premix (Zosyn 3. (02/27/17 14:15) Foot, Complete ([id number]) (02/27/17 ) Morphine Inj (Morphine Inj) (02/27/17 14:15) Ondansetron Inj (Zofran Inj) (02/27/17 14:15) Consult Vascular Surgery (02/27/17 ) Labs Laboratory Tests Test 02/27/17 14:45 White Blood Count 18.1 TH/MM3 Red Blood Count 2.98 MIL/MM3 Hemoglobin 8.8 GM/DL Hematocrit 25.0 % Mean Corpuscular Volume 83.7 FL Mean Corpuscular Hemoglobin 29.5 PG Mean Corpuscular Hemoglobin Concent 35.3 % Red Cell Distribution Width 16.4 % Platelet Count 415 TH/MM3 Mean Platelet Volume 7.4 FL Neutrophils (%) (Auto) 85.4 % Lymphocytes (%) (Auto) 7.4 % Monocytes (%) (Auto) 6.0 % Eosinophils (%) (Auto) 0.6 % Basophils (%) (Auto) 0.6 % Neutrophils # (Auto) 15.4 TH/MM3 Lymphocytes # (Auto) 1.3 TH/MM3 Monocytes # (Auto) 1.1 TH/MM3 Eosinophils # (Auto) 0.1 TH/MM3 Basophils # (Auto) 0.1 TH/MM3 CBC Comment DIFF FINAL Differential Comment Prothrombin Time 15.1 SEC Prothromb Time International Ratio 1.3 RATIO Activated Partial Thromboplast Time 33.4 SEC Blood Urea Nitrogen 23 MG/DL Creatinine 1.19 MG/DL Random Glucose 235 MG/DL Total Protein 8.5 GM/DL Albumin 3.0 GM/DL Calcium Level 9.1 MG/DL Alkaline Phosphatase 95 U/L Aspartate Amino Transf (AST/SGOT) 20 U/L Alanine Aminotransferase (ALT/SGPT) 36 U/L Total Bilirubin 0.4 MG/DL Sodium Level 127 MEQ/L Potassium Level 4.4 MEQ/L Chloride Level 96 MEQ/L Carbon Dioxide Level 21.4 MEQ/L Anion Gap 10 MEQ/L Estimat Glomerular Filtration Rate 62 ML/MIN Lactic Acid Level 1.7 mmol/L MDM Medical Decision Making Medical Screen Exam Complete: Yes Emergency Medical Condition: Yes Medical Record Reviewed: Yes Differential Diagnosis Arterial occlusion versus sepsis versus gangrenous foot versus osteomyelitis versus lymphangitis versus cellulitis Narrative Course 61-year-old male presents to the emergency department for evaluation of purple discoloration of right great toe with significant pain, worsening erythema. I discussed the patient's my attending physician is also assess the patient. She recommends contacting vascular. I spoke with Dr. Esparza, who recommends lab work, admission to medicine, and a consult to him. If renal function permits, he requests a CT with runoff. Sepsis workup was initiated. Patient is treated for pain. Patient is given vancomycin and Zosyn IV. CBC results leukocytosis of 18.1, neutrophilia of 15.4. Anemia with hemoglobin 8.8. Lactic acid is 1.7. CMP is pending. Chest x-ray shows some worsening of the left lower lobe infiltrate. X-ray of the left foot show subcutaneous air at the area of the ulcer. No findings to suggest osteomyelitis. A call has been placed to [facility] for admission Sepsis Criteria SIRS Criteria (2 or more): WBC > 00165, < 4000 or > 10% bands Diagnosis Primary Impression: Ischemic pain of left foot Additional Impressions: Diabetic foot ulcer Qualified Codes: E11.621 - Type 2 diabetes mellitus with foot ulcer; L97.529 - Non-pressure chronic ulcer of other part of left foot with unspecified severity Cellulitis Qualified Codes: L03.032 - Cellulitis of left toe Leukocytosis Qualified Codes: D72.829 - Elevated white blood cell count, unspecified Admitting Information Admitting Physician Requests: Admit Condition: Stable Michaela Grimm Feb 27, 2017 14:12
[2017-02-27] MEDS ORDERED: ONDANSETRON HCL 4 MG/2 ML VIAL IV PUSH ONE (14:15)
[2017-02-27] MEDS ORDERED: VANCOMYCIN INJ 1,000 MG in SODIUM CHLOR 0.9% 250 ML INJ 250 ML IV ONE (14:15)
[2017-02-27] MEDS ORDERED: PIPERACIL-TAZO 3.375 GM PREMIX 50 ML IV ONE (14:15)
[2017-02-27] MEDS ORDERED: MORPHINE SULFATE 4 MG/ML INJ IV PUSH ONE (14:15)
--- NOTE | 2017-02-27 14:45 | RADRPT ---
EXAM DATE/TIME: 02/27/2017 14:20 [facility] COMPARISON: No previous studies available for comparison. INDICATIONS : Left foot pain, ulcers area of toes. MEDICAL HISTORY : Congestive heart failure. Type 2 Diabetes. SURGICAL HISTORY : CABG. Pacemaker. ENCOUNTER: Initial ACUITY: 2 months PAIN SCORE: 0/10 LOCATION: Left Foot. FINDINGS: Intracranial spur. There is an ulcer at the plantar aspect of the foot seen on lateral view with subc utaneous air focally at the ulceration. No underlying bone abnormality is seen to suggest osteomyelit is. There are vascular calcifications noted. No fracture or dislocation. CONCLUSION: Soft tissue ulcer with subcutaneous emphysema. No evidence of osteomyelitis. Jase Sargent MD on February 27, 2017 at 14:42 Board Certified Radiologist. This report was verified electronically.
--- NOTE | 2017-02-27 14:58 | RADRPT ---
EXAM DATE/TIME: 02/27/2017 14:23 [facility] COMPARISON: CHEST SINGLE AP, February 22, 2017, 15:57. INDICATIONS : Sepsis. MEDICAL HISTORY : Congestive heart failure. Type 2 Diabetes. SURGICAL HISTORY : CABG. Pacemaker. Open heart.Coronary artery stent. Ablation ENCOUNTER: Initial ACUITY: 1 day PAIN SCORE: 0/10 LOCATION: Bilateral chest FINDINGS: Single portable frontal view the chest shows an infiltrate which is intraalveolar nature within the l eft lung base. This is worse with her the prior study. Right lung is clear. Heart is enlarged. Pulmon mitzi vessels are normal in caliber. Median sternotomy wires and left-sided pacing device. No effusions . CONCLUSION: Some worsening of the left lower lobe infiltrate. Stable cardiomegaly. Pascual Roe Jr., MD on February 27, 2017 at 14:53 Board Certified Radiologist. This report was verified electronically.
[2017-02-27 15:24] VITALS: O2SAT 97
[2017-02-27 15:24] LABS: AUTOMATED NEUTROPHIL # 15.4 TH/MM3 (1.8-7.7); BASOPHIL # 0.1 TH/MM3 (0-0.2); BASOPHIL % 0.6 % (0.0-2.0); EOSINOPHIL # 0.1 TH/MM3 (0-0.4); EOSINOPHIL % 0.6 % (0.0-4.0); HEMO FLAGS DIFF FINAL; LYMPH % 7.4 % (9.0-44.0); LYMPHOCYTE # 1.3 TH/MM3 (1.0-4.8); MEAN CELL VOLUME 83.7 FL (80.0-100.0); MEAN CORPUSCULAR HEMOGLOBIN 29.5 PG (27.0-34.0); MEAN CORPUSCULAR HGB CONC 35.3 % (32.0-36.0); NEUT % 85.4 % (16.0-70.0); PLATELET COUNT 415 TH/MM3 (150-450); RED BLOOD COUNT 2.98 MIL/MM3 (4.50-5.90); RED CELL DISTRIBUTION WIDTH 16.4 % (11.6-17.2); WHITE BLOOD COUNT 18.1 TH/MM3 (4.0-11.0)
[2017-02-27 15:26] VITALS: BP 112/60; PULSE 89; RESP 20; O2SAT 97
[2017-02-27] MEDS ORDERED: FURO80TA PO (15:33)
[2017-02-27] MEDS ORDERED: SIMV40TA PO (15:33)
[2017-02-27 15:44] LABS: APTT (PATIENT) 33.4 SEC (24.3-30.1); INTERNATIONAL NORMALIZED RATIO 1.3 RATIO; PROTHROMBIN TIME - PATIENT 15.1 SEC (9.8-11.6)
[2017-02-27 15:52] LABS: ALT (GPT) 36 U/L (12-78); ANION GAP 10 MEQ/L (5-15); AST (GOT) 20 U/L (15-37); BICARBONATE 21.4 MEQ/L (21.0-32.0); BLOOD UREA NITROGEN 23 MG/DL (7-18); CHLORIDE 96 MEQ/L (98-107); GLOMERULAR FILTRATION RATE 62 ML/MIN (>89); POTASSIUM 4.4 MEQ/L (3.5-5.1); SODIUM (NA) 127 MEQ/L (136-145)
[2017-02-27 15:54] LABS: ALKALINE PHOSPHATASE 95 U/L (45-117); TOTAL BILIRUBIN ADULT 0.4 MG/DL (0.2-1.0)
[2017-02-27] MEDS ORDERED: DEXTROSE 50% IN WATER 50 ML VIAL(D50) IV PRN (16:45)
[2017-02-27] MEDS ORDERED: Vancomycin Consult Pharmacy 1 EA OTHER SCH (16:45)
[2017-02-27] MEDS ORDERED: GLUCAGON 1 MG/ML VIAL OTHER PRN (16:45)
[2017-02-27 17:15] LABS: BLOOD, URINE NEG (NEG); GLUCOSE,URINE NEG (NEG); KETONE, URINE NEG (NEG); NITRITE,URINE NEG (NEG); PH, URINE 5.5 (5.0-8.5); URINE COLOR YELLOW (YELLW/STRAW)
[2017-02-27 17:16] LABS: COMMENT (UR) CATH-CULT NOT IND; CULTURE IF INDICATED CATH CULTURE NOT IND
--- NOTE | 2017-02-27 17:24 | HHI.HP ---
HPI Service [facility] Hospitalists Primary Care Physician Kimi Snow MD Admission Diagnosis ISCHEMIC L GREAT TOE; L FOOT CELLULITIS/ULCER FAILED OUTPT TX Diagnoses: Chief Complaint: Left great toe discoloration and pain Travel History International Travel<30 Days: No Contact w/Intl Traveler <30 Da: No Traveled to Known Affected Are: No History of Present Illness Written by Love Lopez PA-C acting as scribe for Dr. Shea on 02/27/17 at 16:42. This is a 61 yo male with a PMHX of Cellulitis left foot, CAD s/p previous CABG with recent NSTEMI 01/05/17, Atrial fibrillation s/p previous ablation, Hx of Vtach, Severe left ventricular systolic dysfunction, Ischemic cardiomyopathy, HTN, DM, COPD, hypothyroidism and dyslipidemia who presents to [facility] ED with complaints of increasing pain and discoloration of the left great toe. Patient was just recently admitted 02/22/17 with sepsis due to left foot infection. MRI of the foot was obtained at that time which showed soft tissue ulceration and no evidence of osteomyelitis. Patient was seen in consultation by Dr. Eid. Patient was treated with several of IV antibiotics followed by continuation of oral Cipro and clindamycin following discharge. Patient states he's been compliant with his medications and has taken them as prescribed including today. Patient states yesterday he noticed that the left great toe started turning purple with increasing pain. This worsened over the last 24 hours. He also reports drainage from the wound on the bottom of the foot. He contacted Dr. Weber's office and was told he was on vacation and was recommended to come into the ED for further evaluation and treatment. Patient denies any fever or chills at home. He states his blood sugars at home are fairly well-controlled and return in the 100s. He does admit that he occasionally has higher readings in the 300s. Patient seen in the ED. He reports his pain level is 4/10 presently. He has leukocytosis with a white count of 18.1. Heart rate is normal and he is afebrile. Lactic acid is 1.7. Na level is 127. X-ray shows soft tissue ulcer with subcutaneous emphysema with no evidence of osteomyelitis. Chest x-ray shows some worsening of the left lower lobe infiltrate. Dr. Esparza was contacted while patient still in the ED and requested at CTA with runoff be ordered and he will see him in consultation. Patient was given vancomycin and Zosyn. Past Family Social History Past Medical History Cellulitis left foot CAD s/p previous CABG with recent NSTEMI 01/05/17 Atrial fibrillation s/p previous ablation Hx of Vtach Severe left ventricular systolic dysfunction Ischemic cardiomyopathy HTN DM COPD Dyslipidemia Depression Hypothyroidism Anemia GERD Neuropathy RLS Past Surgical History CABG x 4 2000 multiple cardiac catheterizations with PCI/stent implants, stents x 3 2005, stents x 1 2006, 2010 and 01/03/17 AICD/pacemaker Reported Medications Ciprofloxacin (Ciprofloxacin HCl) 500 Mg Tab 500 Mg PO BID Clindamycin (Clindamycin HCl) 300 Mg Cap 300 Mg PO Q6H Carvedilol 6.25 Mg Tab 6.25 Mg PO BID Brilinta (Ticagrelor) 90 Mg Tab 90 Mg PO BID Aspirin Low Strength (Aspirin) 81 Mg Chew 81 Mg PO DAILY Simvastatin 40 Mg Tab 40 Mg PO HS Furosemide 80 Mg Tab 80 Mg PO BID Zetia (Ezetimibe) 10 Mg Tab 10 Mg PO HS Effexor (Venlafaxine HCl) 75 Mg Tab 75 Mg PO DAILY Nitrostat SL (Nitroglycerin) 0.4 Mg Subl 0.4 Mg SL DIRECTED PRN 1 tablet under the tongue as needed for chest pain. Repeat every 5 minutes for a total of 3 DOSES or call 911 if NO relief. Clonazepam 0.5 Mg Tab 0.5 Mg PO BID Levothyroxine (Levothyroxine Sodium) 25 Mcg Tab 25 Mcg PO DAILY Aldactone (Spironolactone) 25 Mg Tab 25 Mg PO BIDPC Gabapentin 100 Mg Cap 100 Mg PO QID Glipizide 5 Mg Tab 5 Mg PO DAILY Take 30 minutes before a meal Krill Oil 500 Mg Capsule 500 Mg PO BID Multivitamins (Multivitamin) 1 Each Tab.chew 1 Tab PO DAILY Ferosul (Ferrous Sulfate) 325 Mg Tablet 325 Mg PO BID Pioglitazone (Pioglitazone HCl) 45 Mg Tab 45 Mg PO DAILY Losartan (Losartan Potassium) 25 Mg Tab 25 Mg PO DAILY Metformin (Metformin HCl) 500 Mg Tab 500 Mg PO BID With meals Allergies: Coded Allergies: cyclobenzaprine (Unverified Allergy, Severe, Flushing, 03/16/17) REDNESS lisinopril (Unverified Allergy, Unknown, Swelling, 03/16/17) ANGIOEDEMA Family History Heart disease, Mother and Brother DM, Mother Social History Patient has a history of tobacco use but states he "quit" 1-1/2 years ago although admits that he still "sneaks a cigarette here and there". Patient denies any alcohol use. Physical Exam Vital Signs Vital Signs Date Time Temp Pulse Resp B/P (MAP) Pulse Ox O2 Delivery O2 Flow Rate FiO2 02/27/17 15:26 89 20 112/60 (77) 97 Room Air 02/27/17 15:24 97 Room Air 02/27/17 14:33 18 02/27/17 12:19 98.8 88 18 127/60 (82) 99 Room Air Physical Exam GENERAL: This is a well-nourished, well-developed patient, in no apparent distress. Awake and alert. Pleasant and calm. SKIN: Left great toe is edematous with purplish discoloration. There is erythema on top and bottom of the foot extending about retirement but the 2nd thru the 5th digits are spared. There is streaking erythema extending up the lower leg. Open wound noted on the plantar surface of the left foot at the base of the great toe. No active drainage noted. DP pulse on the left is weak but palpable. HEAD: Atraumatic. Normocephalic. No temporal or scalp tenderness. EYES: Pupils equal round and reactive. Extraocular motions intact. No scleral icterus. No injection or drainage. ENT: Nose without bleeding or purulent drainage. Throat without erythema, tonsillar hypertrophy or exudate. Uvula midline. Airway patent. NECK: Trachea midline. No lymphadenopathy. Supple, nontender, no meningeal signs. CARDIOVASCULAR: Regular rate and rhythm without murmurs, gallops, or rubs. RESPIRATORY: Clear to auscultation. Breath sounds equal bilaterally. No wheezes , rales, or rhonchi. GASTROINTESTINAL: Abdomen soft, non-tender, nondistended. No hepato-splenomegaly , or palpable masses. No guarding. MUSCULOSKELETAL: Extremities without clubbing, cyanosis, or edema. No joint tenderness, effusion, or edema noted. No calf tenderness. NEUROLOGICAL: Awake and alert. Able to move all extremities. Normal speech. Laboratory Laboratory Tests Test 02/27/17 14:45 White Blood Count 18.1 Red Blood Count 2.98 Hemoglobin 8.8 Hematocrit 25.0 Mean Corpuscular Volume 83.7 Mean Corpuscular Hemoglobin 29.5 Mean Corpuscular Hemoglobin Concent 35.3 Red Cell Distribution Width 16.4 Platelet Count 415 Mean Platelet Volume 7.4 Neutrophils (%) (Auto) 85.4 Lymphocytes (%) (Auto) 7.4 Monocytes (%) (Auto) 6.0 Eosinophils (%) (Auto) 0.6 Basophils (%) (Auto) 0.6 Neutrophils # (Auto) 15.4 Lymphocytes # (Auto) 1.3 Monocytes # (Auto) 1.1 Eosinophils # (Auto) 0.1 Basophils # (Auto) 0.1 CBC Comment DIFF FINAL Differential Comment Prothrombin Time 15.1 Prothromb Time International Ratio 1.3 Activated Partial Thromboplast Time 33.4 Blood Urea Nitrogen 23 Creatinine 1.19 Random Glucose 235 Total Protein 8.5 Albumin 3.0 Calcium Level 9.1 Alkaline Phosphatase 95 Aspartate Amino Transf (AST/SGOT) 20 Alanine Aminotransferase (ALT/SGPT) 36 Total Bilirubin 0.4 Sodium Level 127 Potassium Level 4.4 Chloride Level 96 Carbon Dioxide Level 21.4 Anion Gap 10 Estimat Glomerular Filtration Rate 62 Lactic Acid Level 1.7 Date/Time Source Procedure Growth Status 02/27/17 14:45 Blood Peripheral Aerobic Blood Culture Pending Received 02/27/17 14:45 Blood Peripheral Anaerobic Blood Culture Pending Received Result Diagram: 02/27/17 1445 02/27/17 1445 Caprini VTE Risk Assessment Caprini VTE Risk Assessment: Mod/High Risk (score >= 2) VTE Pharm Contraindication: awaiting vascular surgery eveluation; possible intervention. VTE [facility] Contraindication: LE ischemia Caprini Risk Assessment Model Point Value = 1 Point Value = 2 Point Value = 3 Point Value = 5 Age 41-60 Minor surgery BMI > 25 kg/m2 Swollen legs Varicose veins or History of unexplained or recurrent spontaneous Oral contraceptives or hormone replacement Sepsis (< 1 month) Serious lung disease, including pneumonia (< 1 month) Abnormal pulmonary function Acute myocardial infarction Congestive heart failure (< 1 month) History of inflammatory bowel disease Medical patient at bed rest Age 61-74 Arthroscopic surgery Major open surgery (> 45 min) Laparoscopic surgery (> 45 min) Malignancy Confined to bed (> 72 hours) Immobilizing plaster cast Central venous access Age >= 75 History of VTE Family history of VTE Factor V Leiden Prothrombin 47460C Lupus anticoagulant Anticardiolipin antibodies Elevated serum homocysteine Heparin-induced thrombocytopenia Other congenital or acquired thrombophilia Stroke (< 1 month) Elective arthroplasty Hip, pelvis, or leg fracture Acute spinal cord injury (< 1 month) Prophylaxis Regimen Total Risk Factor Score Risk Level Prophylaxis Regimen 0-1 Low Early ambulation 2 Moderate Order ONE of the following: *Sequential Compression Device (SCD) *Heparin 5000 units SQ BID 3-4 Higher Order ONE of the following medications: *Heparin 5000 units SQ TID *Enoxaparin/Lovenox 40 mg SQ daily (WT < 150 kg, CrCl > 30 mL/min) *Enoxaparin/Lovenox 30 mg SQ daily (WT < 150 kg, CrCl > 10-29 mL/min) *Enoxaparin/Lovenox 30 mg SQ BID (WT < 150 kg, CrCl > 30 mL/min) AND/OR *Sequential Compression Device (SCD) 5 or more Highest Order ONE of the following medications: *Heparin 5000 units SQ TID (Preferred with Epidurals) *Enoxaparin/Lovenox 40 mg SQ daily (WT < 150 kg, CrCl > 30 mL/min) *Enoxaparin/Lovenox 30 mg SQ daily (WT < 150 kg, CrCl > 10-29 mL/min) *Enoxaparin/Lovenox 30 mg SQ BID (WT < 150 kg, CrCl > 30 mL/min) AND *Sequential Compression Device (SCD) Assessment and Plan Assessment and Plan 61 yo male with a PMHX of Cellulitis left foot, CAD s/p previous CABG with recent NSTEMI 01/05/17, Atrial fibrillation s/p previous ablation, Hx of Vtach, Severe left ventricular systolic dysfunction, Ischemic cardiomyopathy, HTN, DM, COPD, hypothyroidism and dyslipidemia who presents to [facility] ED with complaints of increasing pain and discoloration of the left great toe. Probable ischemic left foot Dr. Fleming of vascular surgery consulted while patient in the ED and has ordered a CTA with runoff Pain management Cellulitis/Diabetic foot ulcer ID consultation Podiatry consultation Hold patient's previous home medications of ciprofloxacin and clindamycin Continue IV Zosyn and Vancomycin foot xray personally reviewed showing soft tissue ulcer with subcutaneous emphysema with no e/o osteomyelitis PNA CXR personally reviewed shows worsening of the left lower lobe infiltrate IV antibiotics IS, acapella Dononeean prn Leukocytosis secondary to above patient does not appear septic IV abx as above Follow-up on blood culture results am labs to monitor CAD previous CABG recent NSTEMI status post cardiac catheterization stent implantation 12/23 History of V. tach History of atrial fibrillation status post ablation Hypertension, controlled Severe left ventricular systolic dysfunction Ischemic cardiomyopathy Patient to remain on Brilinta for one year and aspirin indefinitely. Continue both these medications. Continue patient on home dose of carvedilol 6.25 mg by mouth twice a day, losartan 25 mg daily, furosemide 80 mg by mouth twice a day and spironolactone 25 mg by mouth twice a day Monitor for signs of fluid overload Type 2 DM Diabetic neuropathy Random glucose 235 Hold patient's metformin, glipizide and pioglitazone Accu-Cheks and insulin sliding scale Continue patient's home dose of gabapentin 100 mg by mouth 4 times a day Diabetic diet HLD Continue patient's home dose of simvastatin and Zetia Hyponatremia chronic am labs to monitor trend Anemia chronic, stable Continue patient on home dose of ferrous sulfate 325 mg by mouth twice a day Hypothyroidism Continue patient on home dose of levothyroxine 25 g daily DVT prophylaxis; will start chemoprophylaxis after evaluated by vascular surgery. This note was transcribed by pamela [ ALEXANDER Martinez]. I, Dr. Toshia Shea personally performed the history, physical exam, and medical decision making; and confirmed the accuracy of the information in the transcribed note. Authenticated by Dr. Toshia Shea on 02/27/17 at 17:29. Discussed Condition With ED physician, patient and nursing staff Physician Certification 2 Midnight Certification Type: Admission for Inpatient Services Order for Inpatient Services The services are ordered in accordance with Medicare regulations or non- Medicare payer requirements, as applicable. In the case of services not specified as inpatient-only, they are appropriately provided as inpatient services in accordance with the 2-midnight benchmark. Estimated LOS (days): 2 2 days is the estimated time the patient will need to remain in the hospital, assuming treatment plan goals are met and no additional complications. Post-Hospital Plan: Not yet determined Love Lopez Feb 27, 2017 17:24 Akash Shea MD Feb 27, 2017 17:29
[2017-02-27 18:00] VITALS: BP 114/75; PULSE 83; RESP 18; O2SAT 96
--- NOTE | 2017-02-27 18:26 | PD ---
Physical Exam Date Seen by Provider: Feb 27, 2017 Time Seen by Provider: 18:20 Narrative 61-year-old male came to the emergency room with history of left great toe pain and discoloration that has progressively been going on for past few days. Patient was just recently discharged after getting a stent. He is on Berlynta for his stent. He was seen by podiatry last time and was asked to follow-up in Dr. Eid's office. However today the noticed that his toe was completely purple in color and he was in severe pain. She decided to bring him to the emergency room. Patient was seen by the nurse practitioner. Palpable dorsalis pedis pulses were felt. Toe had definite demarcation at the MTP joint. Patient also has streaking up on his leg medially. It seems like patient has possible embolic event off his toe. I explained to the patient and the that he will most probably end up losing his toe. I asked the nurse practitioner to discuss the case with the vascular surgeon and get his recommendation on starting the patient on heparin. However she was told to go ahead and get a angiogram with arterial runoff. Patient was started on antibiotic as well as per my recommendation. The vascular surgeon is currently here and has seen the patient. He agrees that the patient will end up requiring amputation of his toe and possibly forefoot. Patient has been admitted. He has consulted podiatry as well. Data Data Last Documented VS Vital Signs Date Time Temp Pulse Resp B/P (MAP) Pulse Ox O2 Delivery O2 Flow Rate FiO2 02/27/17 15:26 89 20 112/60 (77) 97 Room Air 02/27/17 12:19 98.8 Orders Orders Electrocardiogram (02/27/17 14:07) Complete Blood Count With Diff (02/27/17 14:07) Comprehensive Metabolic Panel (02/27/17 14:07) Prothrombin Time / Inr (Pt) (02/27/17 14:07) Act Partial Throm Time (Ptt) (02/27/17 14:07) Lactic Acid Sepsis Protocol (02/27/17 14:07) Urinalysis - C+S If Indicated (02/27/17 14:07) Blood Culture (02/27/17 14:07) Chest, Single Ap (02/27/17 14:07) Blood Glucose (02/27/17 14:07) Ecg Monitoring (02/27/17 14:07) Iv Access Insert/Monitor (02/27/17 14:07) Oximetry (02/27/17 14:07) Oxygen Administration (02/27/17 14:07) Vancomycin Inj (Vancomycin Inj) (02/27/17 14:15) Piperacil-Tazo 3.375 Gm Premix (Zosyn 3. (02/27/17 14:15) Foot, Complete ([id number]) (02/27/17 ) Morphine Inj (Morphine Inj) (02/27/17 14:15) Ondansetron Inj (Zofran Inj) (02/27/17 14:15) Consult Vascular Surgery (02/27/17 ) Cta Runoff W Iv Contrast W 3d (02/27/17 ) (Hub Use Only)Inp Phy Cons/Ref (02/27/17 ) Admit Order (Ed Use Only) (02/27/17 16:14) Labs Laboratory Tests Test 02/27/17 14:45 White Blood Count 18.1 TH/MM3 Red Blood Count 2.98 MIL/MM3 Hemoglobin 8.8 GM/DL Hematocrit 25.0 % Mean Corpuscular Volume 83.7 FL Mean Corpuscular Hemoglobin 29.5 PG Mean Corpuscular Hemoglobin Concent 35.3 % Red Cell Distribution Width 16.4 % Platelet Count 415 TH/MM3 Mean Platelet Volume 7.4 FL Neutrophils (%) (Auto) 85.4 % Lymphocytes (%) (Auto) 7.4 % Monocytes (%) (Auto) 6.0 % Eosinophils (%) (Auto) 0.6 % Basophils (%) (Auto) 0.6 % Neutrophils # (Auto) 15.4 TH/MM3 Lymphocytes # (Auto) 1.3 TH/MM3 Monocytes # (Auto) 1.1 TH/MM3 Eosinophils # (Auto) 0.1 TH/MM3 Basophils # (Auto) 0.1 TH/MM3 CBC Comment DIFF FINAL Differential Comment Prothrombin Time 15.1 SEC Prothromb Time International Ratio 1.3 RATIO Activated Partial Thromboplast Time 33.4 SEC Blood Urea Nitrogen 23 MG/DL Creatinine 1.19 MG/DL Random Glucose 235 MG/DL Total Protein 8.5 GM/DL Albumin 3.0 GM/DL Calcium Level 9.1 MG/DL Alkaline Phosphatase 95 U/L Aspartate Amino Transf (AST/SGOT) 20 U/L Alanine Aminotransferase (ALT/SGPT) 36 U/L Total Bilirubin 0.4 MG/DL Sodium Level 127 MEQ/L Potassium Level 4.4 MEQ/L Chloride Level 96 MEQ/L Carbon Dioxide Level 21.4 MEQ/L Anion Gap 10 MEQ/L Estimat Glomerular Filtration Rate 62 ML/MIN Lactic Acid Level 1.7 mmol/L MDM Diagnosis Primary Impression: Ischemic pain of left foot Additional Impressions: Diabetic foot ulcer Cellulitis Leukocytosis Condition: Stable Tim Loera MD Feb 27, 2017 18:26
--- NOTE | 2017-02-27 18:27 | PD.CAR.PN ---
CVT Progress Note Subjective/Hospital Course: Patient with gangrene of the left hallux and cellulitis of the left foot diabetes mellitus and A. fib Likely patient has suffered cardioarterial or arterial arterial embolism and trashed left foot CTA pending but I do believe the patient has appreciable degree of peripheral vascular disease that may require reconstruction and I believe he will have moderate stenosis in superficial femoral arteries with probably significant calcifications in the distal vessels beyond trifurcation. In addition patient has left internal carotid occlusion and hemodynamically significant right stenosis so this will have to be dealt with at some point as well Full consult dictated Thanks J Objective: Vital Signs Date Time Temp Pulse Resp B/P (MAP) Pulse Ox O2 Delivery O2 Flow Rate FiO2 02/27/17 15:26 89 20 112/60 (77) 97 Room Air 02/27/17 15:24 97 Room Air 02/27/17 14:33 18 02/27/17 12:19 98.8 88 18 127/60 (82) 99 Room Air Labs: Laboratory Tests Test 02/27/17 14:45 02/27/17 16:45 White Blood Count 18.1 TH/MM3 (4.0-11.0) Red Blood Count 2.98 MIL/MM3 (4.50-5.90) Hemoglobin 8.8 GM/DL (13.0-17.0) Hematocrit 25.0 % (39.0-51.0) Mean Corpuscular Volume 83.7 FL (80.0-100.0) Mean Corpuscular Hemoglobin 29.5 PG (27.0-34.0) Mean Corpuscular Hemoglobin Concent 35.3 % (32.0-36.0) Red Cell Distribution Width 16.4 % (11.6-17.2) Platelet Count 415 TH/MM3 (150-450) Mean Platelet Volume 7.4 FL (7.0-11.0) Neutrophils (%) (Auto) 85.4 % (16.0-70.0) Lymphocytes (%) (Auto) 7.4 % (9.0-44.0) Monocytes (%) (Auto) 6.0 % (0.0-8.0) Eosinophils (%) (Auto) 0.6 % (0.0-4.0) Basophils (%) (Auto) 0.6 % (0.0-2.0) Neutrophils # (Auto) 15.4 TH/MM3 (1.8-7.7) Lymphocytes # (Auto) 1.3 TH/MM3 (1.0-4.8) Monocytes # (Auto) 1.1 TH/MM3 (0-0.9) Eosinophils # (Auto) 0.1 TH/MM3 (0-0.4) Basophils # (Auto) 0.1 TH/MM3 (0-0.2) CBC Comment DIFF FINAL Differential Comment Prothrombin Time 15.1 SEC (9.8-11.6) Prothromb Time International Ratio 1.3 RATIO Activated Partial Thromboplast Time 33.4 SEC (24.3-30.1) Blood Urea Nitrogen 23 MG/DL (7-18) Creatinine 1.19 MG/DL (0.60-1.30) Random Glucose 235 MG/DL (74-106) Total Protein 8.5 GM/DL (6.4-8.2) Albumin 3.0 GM/DL (3.4-5.0) Calcium Level 9.1 MG/DL (8.5-10.1) Alkaline Phosphatase 95 U/L (45-117) Aspartate Amino Transf (AST/SGOT) 20 U/L (15-37) Alanine Aminotransferase (ALT/SGPT) 36 U/L (12-78) Total Bilirubin 0.4 MG/DL (0.2-1.0) Sodium Level 127 MEQ/L (136-145) Potassium Level 4.4 MEQ/L (3.5-5.1) Chloride Level 96 MEQ/L (98-107) Carbon Dioxide Level 21.4 MEQ/L (21.0-32.0) Anion Gap 10 MEQ/L (5-15) Estimat Glomerular Filtration Rate 62 ML/MIN (>89) Lactic Acid Level 1.7 mmol/L (0.4-2.0) Urine Color YELLOW (YELLW/STRAW) Urine Turbidity CLEAR (CLEAR) Urine pH 5.5 (5.0-8.5) Urine Specific Ulysses 1.011 (1.002-1.035) Urine Protein TRACE mg/dL (NEG-TRACE) Urine Glucose (UA) NEG mg/dL (NEG) Urine Ketones NEG mg/dL (NEG) Urine Occult Blood NEG (NEG) Urine Nitrite NEG (NEG) Urine Bilirubin NEG (NEG) Urine Urobilinogen LESS THAN 2.0 MG/DL (LESS Urine Leukocyte Esterase NEG (NEG) Microscopic Urinalysis Comment CATH-CULT NOT IND Result Diagram: 02/27/17 1445 02/27/17 1445 Trisha Fleming MD Feb 27, 2017 18:27
--- NOTE | 2017-02-27 18:45 | RADRPT ---
EXAM DATE/TIME: 02/27/2017 17:08 [place] COMPARISON: No previous studies available for comparison. INDICATIONS : Occlusion . IV CONTRAST: 104 cc Omnipaque 350 (iohexol) IV RADIATION DOSE: 14.44 CTDIvol (mGy) MEDICAL HISTORY : Congestive heart failure. Diabetes mellitus type 2. SURGICAL HISTORY : Pacemaker. Defibrillator.CABG ENCOUNTER: Initial ACUITY: 1 day PAIN SCALE: 3/10 LOCATION: Bilateral LEGS TECHNIQUE: Volumetric scanning was performed using a multi-row detector CT scanner. The data was post processed with a variety of visualization algorithms including full volume maximum intensity projection, multi -planar sliding thin slab reformation, curved planar reformation, and surface rendering techniques. Using automated exposure control and adjustment of the mA and/or kV according to patient size, radiat ion dose was kept as low as reasonably achievable to obtain optimal diagnostic quality images. DICO M format image data is available electronically for review and comparison. FINDINGS: ABDOMINAL AORTA: There is severe atherosclerotic disease of the abdominal aorta, most severe in the infrarenal portion . The celiac trunk is patent with moderate atherosclerotic disease. There is additional moderate athe rosclerotic calcification of the superior mesenteric artery without any high grade stenosis identifie d. There are patent single renal arteries bilaterally with moderate atherosclerotic disease in the pr oximal right renal artery. No high-grade stenosis is visualized. The FRANKIE remains patent. RIGHT PELVIS: There is severe atherosclerotic disease of the right common iliac artery and the internal and externa l iliac artery branches. Vessels remain patent however. LEFT PELVIS: There is severe atherosclerotic disease of the common carotid artery and the internal and external br anches. However, vessels remain patent. RIGHT THIGH: There is [id number] atherosclerotic disease of the common femoral artery. Profunda femoris is patent with mild atherosclerotic change. Superficial femoral artery demonstrates severe atherosclero tic change but remains patent. There is a moderate to severe stenosis in the midportion. The poplitea l artery is patent with mild atherosclerotic disease. LEFT THIGH: There is severe atherosclerotic disease of the left common femoral artery. Profundofemoral and superf icial femoral arteries are patent but demonstrate moderate to severe atherosclerotic disease. There i s moderate to severe stenosis of the mid superficial femoral artery. Popliteal artery demonstrates mi ld atherosclerotic disease and is patent. RIGHT LEG: There is severe atherosclerotic disease of the anterior tibial, posterior tibia, and peroneal arterie s. Lumen is difficult to visualize but they appear patent to the ankle. LEFT LEG: The anterior tibial, posterior tibial, and peroneal arteries demonstrate severe atherosclerotic calci fication. There lumen is difficult to visualize but they appear patent to the ankle. Nonvascular findings include moderate size left pleural effusion. Biventricular pacing wires are pres ent within the heart. There is a right upper pole renal cyst measuring 18 mm in a 10 mm low density l esion in the left mid kidney that is too small to characterize. CONCLUSION: 1. Severe atherosclerotic disease of the abdominal aorta and its major branches and within both lower extremities. There is a moderate to severe stenosis of the midportion of the superficial femoral art lucero bilaterally but no vessel occlusion is identified. 2. Moderate size left pleural effusion. Justus Martinez MD on February 27, 2017 at 18:33 Board Certified Radiologist. This report was verified electronically.
--- NOTE | 2017-02-27 19:30 | MB ---
cc: TRISHA BURGER MD DATE OF CONSULTATION 02/27/[address] Burger, vascular surgery. REASON FOR CONSULTATION Ischemia of the left leg and gangrene of the left hallux. Cellulitis. HISTORY OF THE PRESENT ILLNESS This is a 61-year-old male with a known history of coronary artery disease, diabetes mellitus presents today to the hospital with gangrene of the left hallux as well as cellulitis of his left foot, mainly dorsum, question arises about any vascular implications that may be there. PAST MEDICAL HISTORY The past medical history of this patient is quite complex. He was just discharged the other day for left foot infection. At the time apparently the patient was noted to have ulceration over the second metatarsal head. However, no evidence of osteomyelitis. Dr. Eid has been following the patient for awhile. The patient states in the last 48 hours the toe got purple and then dark blue and hence the presentation. PAST MEDICAL HISTORY Medical history includes: 1. Coronary artery disease with NSTEMI in December this year. 2. Coronary artery bypass surgery. 3. Chronic a fib with previous ablation. 4. History of ventricular systolic dysfunction. 5. Ischemic cardiomyopathy. 6. V-tach episodes. 7. Hypertension about 25 years. 8. Diabetes mellitus. 9. COPD. 10. Hyperlipidemia. 11. Severe distal neuropathy. PAST SURGICAL HISTORY Is that of: 1. CABG. 2. Cardiac catheterization several times with stent placements in 2005, 2006, 2010 and 2016. 3. Defibrillator pacemaker placement. MEDICATIONS Are multiple including Brilinta. ALLERGIES LISINOPRIL. SOCIAL HISTORY The patient was a smoker until about a year and half ago, smoking about two packs a day. PHYSICAL EXAMINATION GENERAL: Physical examination reveals 62-year-old male appearing older than his actual age. HEENT: Normocephalic. No trauma to the head. Pupils equally reactive. Extraocular muscles intact. NECK: Bilateral carotid pulses in the lower neck, in the upper neck only unilateral pulse on the right. The patient has occlusion of the left internal carotid artery and this was known before. The patient sustained ischemic episode which he had recovered from. CHEST: Bilateral breath sounds decreased over both lung varela consistent with moderate degree of COPD. HEART: Irregular rhythm. The patient is in a slow A fib. ABDOMEN: Soft. No rebound or guarding. No masses. EXTREMITIES: The patient actually has weak palpable femoral, doppler detectable popliteal, dorsalis pedis and posterior tibial pulses bilaterally. Distal pulses are weak and chances are patient has moderate stenosis of common femoral and superficial femoral arteries and then probably severe distal disease consistent with diabetes mellitus. Capillary refill is decreased CTA with runoff is pending and has been ordered from the ER. Left foot indeed shows gangrene of the left hallux and cellulitis extending over the dorsum of the left foot as well as a shallow ulcer of the plantar surface of the foot overlying the second metatarsal. NEUROLOGIC: The patient has decreased sensation in both legs, however, neurologically he is fully intact. IMPRESSION AND RECOMMENDATIONS 1. The patient has a left carotid occlusion and moderate right-sided stenosis. The stenosis is about 60% range and this has been known from before. The patient was supposed to follow up in my office after discharge from the hospital, he never did that and I recommended at that time right carotid endarterectomy considering that it is this patient's only remaining vessel. Now he is back with this other problem so lets handle this first. All things equal in the future the patient will require right carotid endarterectomy. 2. As far as a peripheral vascular disease is concerned, the patient does have appreciable disease on clinical exam. He has weak palpable proximal Doppler detectable distal pulses, signifying probably at least moderate degree of proximal disease and systemic calcifications and moderate stenosis scattered throughout. Distal disease beyond trifurcation I expect to be fairly severe. I am still waiting for a CT to see what this looks like. On the other hand as far as the foot is concerned at least the patient will have to lose his hallux because this is right now non retrievable and gangrenous and at the most the patient may lose a forefoot or even end up with a BKA. I have discussed this with the patient and family. As far as the cause is concerned there is no question in my mind that the patient had cardioarterial embolization or arterial-arterial embolization to the foot and basically trashed his foot. He is on Brilinta, however. Brilinta is a platelet aggregation inhibitor that is based on blockage of a adenosine diphosphate (ADP) and not a true blood thinner. The patient will need to be placed on heparin until we figure out if he has any cardiac thrombi that are breaking off and causing this problem. Brilinta should not be stopped in face of his fresh cardiac stents. Having said all that once the echocardiogram shows whether there are any cardiac thrombi we can always adjust therapy from there. Podiatry was consulted. Based on the CT findings combinative clinical exam and current problems patient may require some type of reconstructive vascular surgery open or endovascular, or both. I thank you much for referral. I will continue to follow with you. Critical care time 42 minutes. Trisha Burger SJ/KK /6:13 PM /6:57 PM MTDDamion
[2017-02-27] MEDS: HYDROmorphone HCL PF 1 MG/ML VIAL IV PUSH PRN (19:53)
[2017-02-27 20:00] VITALS: BP 116/71; PULSE 111; RESP 17; TEMP 99.1; O2SAT 95
[2017-02-27] MEDS: INSULIN ASPART SUPPLEMENTAL SCALE SQ SCH (21:00)
[2017-02-27] MEDS: PIPERACIL-TAZO 3.375 GM PREMIX 50 ML IV SCH (21:00)
[2017-02-27] MEDS ORDERED: VANCOMYCIN 1,000 MG/NS 250 ML IV ONE ×2 (21:00)
[2017-02-27] MEDS ORDERED: PRAVASTATIN SOD 80 MG TAB PO SCH (21:00)
[2017-02-27] MEDS: GABAPENTIN 100 MG CAP PO SCH ×2 (21:00→23:54)
[2017-02-27] MEDS ORDERED: NON-FORMULARY DRUG (Simvastatin 40 MG) PO SCH (21:00)
[2017-02-27] MEDS: EZETIMIBE 10 MG TAB PO SCH (23:53)
[2017-02-27] MEDS: FERROUS SULFATE 325 MG (65 MG ELEMENTAL IRON) TAB PO SCH (23:53)
[2017-02-27] MEDS: CARVEDILOL 6.25 MG TAB PO SCH (23:54)
[2017-02-27] MEDS: FUROSEMIDE 80 MG TAB PO SCH (23:54)
[2017-02-27] MEDS: clonazePAM 0.5 MG TAB PO SCH (23:54)
[2017-02-27] MEDS: TICAGRELOR 90 MG TAB PO SCH (23:54)
[2017-02-28] VITALS (7 sets, daily range): BP systolic 95–120; BP diastolic 50–68; PULSE 81–93; RESP 16–18; TEMP 97.6–100.7; O2SAT 93–97
[2017-02-28] MEDS: HYDROmorphone HCL PF 1 MG/ML VIAL IV PUSH PRN (00:15)
[2017-02-28] MEDS: PIPERACIL-TAZO 3.375 GM PREMIX 50 ML IV SCH ×4 (04:34→20:32)
[2017-02-28] MEDS: LEVOTHYROXINE SODIUM 25 MCG TAB PO SCH (04:35)
[2017-02-28] MEDS: INSULIN ASPART SUPPLEMENTAL SCALE SQ SCH ×4 (04:42→20:34)
[2017-02-28] MEDS: ACETAMINOPHEN/HYDROcodone 325 MG/5 MG TAB PO PRN ×4 (04:43→20:31)
[2017-02-28 06:38] LABS: AUTOMATED NEUTROPHIL # 14.8 TH/MM3 (1.8-7.7); BASOPHIL % 0.1 % (0.0-2.0); EOSINOPHIL # 0.1 TH/MM3 (0-0.4); EOSINOPHIL % 0.5 % (0.0-4.0); HEMATOCRIT 21.6 % (39.0-51.0); HEMO FLAGS DIFF FINAL; LYMPH % 4.9 % (9.0-44.0); LYMPHOCYTE # 0.8 TH/MM3 (1.0-4.8); MEAN CELL VOLUME 83.2 FL (80.0-100.0); MEAN CORPUSCULAR HEMOGLOBIN 28.2 PG (27.0-34.0); MEAN CORPUSCULAR HGB CONC 33.9 % (32.0-36.0); MONO % 7.9 % (0.0-8.0); NEUT % 86.6 % (16.0-70.0); PLATELET COUNT 352 TH/MM3 (150-450); RED CELL DISTRIBUTION WIDTH 16.7 % (11.6-17.2); WHITE BLOOD COUNT 17.1 TH/MM3 (4.0-11.0)
[2017-02-28] MEDS: GABAPENTIN 100 MG CAP PO SCH ×4 (08:28→20:32)
[2017-02-28] MEDS: ASPIRIN 81 MG CHEW TAB PO SCH (08:29)
[2017-02-28] MEDS: SPIRONOLACTONE 25 MG TAB PO SCH ×2 (08:29→16:33)
[2017-02-28] MEDS: FERROUS SULFATE 325 MG (65 MG ELEMENTAL IRON) TAB PO SCH ×2 (08:29→20:32)
[2017-02-28] MEDS: clonazePAM 0.5 MG TAB PO SCH ×2 (08:29→20:32)
[2017-02-28] MEDS: TICAGRELOR 90 MG TAB PO SCH ×2 (08:30→20:31)
[2017-02-28] MEDS: FUROSEMIDE 80 MG TAB PO SCH ×2 (09:00→20:32)
[2017-02-28] MEDS: CARVEDILOL 6.25 MG TAB PO SCH ×2 (09:00→20:32)
[2017-02-28] MEDS: LOSARTAN 25 MG TAB PO SCH (09:00)
--- NOTE | 2017-02-28 10:01 | HHI.PR ---
Subjective Remarks f/u; left foot ulcer/gangrene in no acute distress. although still complaining of severe pain to the left foot. no fever. Objective Vitals Vital Signs Date Time Temp Pulse Resp B/P (MAP) Pulse Ox O2 Delivery O2 Flow Rate FiO2 02/28/17 08:00 98.8 93 17 95/55 (68) 95 02/28/17 00:00 97.6 81 17 120/68 (85) 96 02/27/17 20:00 99.1 111 17 116/71 (86) 95 02/27/17 18:00 83 18 114/75 (88) 96 Room Air 02/27/17 15:26 89 20 112/60 (77) 97 Room Air 02/27/17 15:24 97 Room Air 02/27/17 14:33 18 02/27/17 12:19 98.8 88 18 127/60 (82) 99 Room Air I/O 02/27/17 02/27/17 02/27/17 02/28/17 02/28/17 02/28/17 07:00 15:00 23:00 07:00 15:00 23:00 Intake Total 540 ml 523 ml Output Total 600 ml 200 ml Balance -60 ml 323 ml Intake Oral 240 ml 240 ml IV Total 300 ml 283 ml Output Urine Total 600 ml 200 ml # Voids 2 Result Diagram: 02/28/17 0625 02/27/17 1445 Imaging Last Impressions Chest X-Ray 02/27/17 1407 Signed Impressions: Service Date/Time: Monday, February 27, 2017 14:23 - CONCLUSION: Some worsening of the left lower lobe infiltrate. Stable cardiomegaly. Pascual Roe Jr., MD Foot X-Ray 02/27/17 0000 Signed Impressions: Service Date/Time: Monday, February 27, 2017 14:20 - CONCLUSION: Soft tissue ulcer with subcutaneous emphysema. No evidence of osteomyelitis. Jase Sargent MD Aorta w/Runoff CTA 02/27/17 0000 Signed Impressions: Service Date/Time: Monday, February 27, 2017 17:08 - CONCLUSION: 1. Severe atherosclerotic disease of the abdominal aorta and its major branches and within both lower extremities. There is a moderate to severe stenosis of the midportion of the superficial femoral artery bilaterally but no vessel occlusion is identified. 2. Moderate size left pleural effusion. Justus Martinez MD Objective Remarks GENERAL: This is a well-nourished, well-developed patient, in no apparent distress. CARDIOVASCULAR: Regular rate and regular rhythm without murmurs, gallops, or rubs. RESPIRATORY: Clear to auscultation. Breath sounds equal bilaterally. No wheezes , rales, or rhonchi. GASTROINTESTINAL: Abdomen soft, non-tender, nondistended. Normal, active bowel sounds MUSCULOSKELETAL: left great toe is tender with some erythema NEURO: Alert & Oriented x4 to person, place, time, situation. Moves all ext x4 Medications and IVs Current Medications Vancomycin HCl 1000 mg/Sodium Chloride 250 ml @ 250 mls/hr ONCE ONCE IV Last administered on 02/27/17 16:42; Start 02/27/17 at 14:15; Stop 02/27/17 at 15:14 ; Status DC Piperacillin Sod/ Tazobactam Sod 50 ml @ 100 mls/hr ONCE ONCE IV Last administered on 02/27/17 14:56; Start 02/27/17 at 14:15; Stop 02/27/17 at 14:44 ; Status DC Morphine Sulfate (Morphine Inj) 4 mg ONCE ONCE IV PUSH Last administered on 14:56; Start 02/27/17 at 14:15; Stop 02/27/17 at 14:16; Status DC Ondansetron HCl (Zofran Inj) 4 mg ONCE ONCE IV PUSH Last administered on 14:53; Start 02/27/17 at 14:15; Stop 02/27/17 at 14:16; Status DC Dextrose (D50w (Vial) Inj) 50 ml UNSCH PRN IV HYPOGLYCEMIA-SEE COMMENTS; Start 02/27/17 at 16:45 Glucagon (Glucagon Inj) 1 mg UNSCH PRN OTHER HYPOGLYCEMIA-SEE COMMENTS; Start 02/27/17 at 16:45 Insulin Aspart (NovoLOG SUPPLEMENTAL SCALE) 1 ACHS SLIDING SCALE SQ Last administered on 02/28/17 04:42; Start 02/27/17 at 21:00 Piperacillin Sod/ Tazobactam Sod 50 ml @ 100 mls/hr Q6H IV Last administered on 02/28/17 08:28; Start 02/27/17 at 21:00 Pharmacy Profile Note 0 ml @ 0 mls/hr UNSCH OTHER ; Start 02/27/17 at 16:45 Aspirin (Aspirin Chew) 81 mg DAILY PO Last administered on 02/28/17 08:29; Start 02/28/17 at 09:00 Carvedilol (Coreg) 6.25 mg BID PO Last administered on 02/27/17 23:54; Start 02/27/17 at 21:00 Clonazepam (KlonoPIN) 0.5 mg BID PO Last administered on 02/28/17 08:29; Start 02/27/17 at 21:00 EZETIMIBE (Zetia) 10 mg HS PO Last administered on 02/27/17 23:53; Start 02/27 at 21:00 Ferrous Sulfate (Ferrous Sulfate) 325 mg BID PO Last administered on 02/28/17 08:29; Start 02/27/17 at 21:00 Furosemide (Lasix) 80 mg BID PO Last administered on 02/27/17 23:54; Start at 21:00 Gabapentin (Neurontin) 100 mg QID PO Last administered on 02/28/17 08:28; Start 02/27/17 at 18:00 Levothyroxine Sodium (Synthroid) 25 mcg DAILY@0600 PO Last administered on 02/28 04:35; Start 02/28/17 at 06:00 Losartan Potassium (Cozaar) 25 mg DAILY PO ; Start 02/28/17 at 09:00 Spironolactone (Aldactone) 25 mg BIDPC PO Last administered on 02/28/17 08:29 ; Start 02/27/17 at 18:00 Ticagrelor (Brilinta) 90 mg BID PO Last administered on 02/28/17 08:30; Start 02/27/17 at 21:00 Non-Formulary Medication 40 mg HS PO ; Start 02/27/17 at 21:00; Status UNV Acetaminophen/ Hydrocodone Bitart ([place] 5-325 Mg) 1 tab Q4H PRN PO PAIN 1-5 Last administered on 02/28/17 04:43; Start 02/27/17 at 19:00 Hydromorphone HCl (Dilaudid Pf Inj) 0.5 mg Q4H PRN IV PUSH PAIN 6-10 Last administered on 02/28/17 00:15; Start 02/27/17 at 19:00 Pravastatin Sodium (Pravachol) 80 mg HS PO Last administered on 02/27/17t 23:53 ; Start 02/27/17 at 21:00 Vancomycin HCl 1000 mg/Sodium Chloride 250 ml @ 250 mls/hr ONCE ONCE IV Last administered on 02/28/17t 00:12; Start 02/27/17 at 21:00; Stop 02/27/17 at 21:59 ; Status DC Vancomycin HCl 1750 mg/Sodium Chloride 517.5 ml @ 257.5 mls/ hr Q24H IV ; Start 02/28/17 at 21:00 Miscellaneous Information SPECIFIC LAB TO BE ... ONCE ONCE .XX ; Start 03/02 at 20:45; Stop 03/02/17 at 20:46 A/P Assessment and Plan A/P Probable ischemic left foot awaiting vascular surgery follow-up and recommendations Pain management; will increase norco and start Dilaudid for breakthrough pain- continue to monitor and adjust the regimen as needed. Cellulitis/Diabetic foot ulcer ID consultation Podiatry consultation Hold patient's previous home medications of ciprofloxacin and clindamycin Continue IV Zosyn and Vancomycin foot xray personally reviewed showing soft tissue ulcer with subcutaneous emphysema with no e/o osteomyelitis Leukocytosis secondary to above patient does not appear septic IV abx as above Follow-up on blood culture results am labs to monitor CAD previous CABG recent NSTEMI status post cardiac catheterization stent implantation 12/23 History of V. tach History of atrial fibrillation status post ablation Hypertension, controlled Severe left ventricular systolic dysfunction Ischemic cardiomyopathy Patient to remain on Brilinta for one year and aspirin indefinitely. Continue both these medications. Continue patient on home dose of carvedilol 6.25 mg by mouth twice a day, losartan 25 mg daily, furosemide 80 mg by mouth twice a day and spironolactone 25 mg by mouth twice a day will need cardiology clearance if any procedures planned. Monitor for signs of fluid overload Type 2 DM Diabetic neuropathy Random glucose 235 Hold patient's metformin, glipizide and pioglitazone Accu-Cheks and insulin sliding scale Continue patient's home dose of gabapentin 100 mg by mouth 4 times a day Diabetic diet HLD Continue patient's home dose of simvastatin and Zetia Hyponatremia chronic am labs to monitor trend Anemia chronic - now with some drop in H/H will check iron panel and stool for blood. Continue patient on home dose of ferrous sulfate 325 mg by mouth twice a day repeat H/H today and transfuse PRBC as needed. Hypothyroidism Continue patient on home dose of levothyroxine 25 g daily DVT prophylaxis; will start chemoprophylaxis after evaluated by vascular surgery. Akash Shea MD Feb 28, 2017 10:01
[2017-02-28] MEDS ORDERED: HYDROmorphone HCL PF 1 MG/ML VIAL IV PUSH PRN (11:00)
--- NOTE | 2017-02-28 13:36 | PD.CAR.PN ---
CVT Progress Note Subjective/Hospital Course: Patient with gangrene of the left hallux and cellulitis of the left foot diabetes mellitus and A. fib Likely patient has suffered cardioarterial or arterial arterial embolism and trashed left foot CTA pending but I do believe the patient has appreciable degree of peripheral vascular disease that may require reconstruction and I believe he will have moderate stenosis in superficial femoral arteries with probably significant calcifications in the distal vessels beyond trifurcation. In addition patient has left internal carotid occlusion and hemodynamically significant right stenosis so this will have to be dealt with at some point as well Full consult dictated Thanks J 02/28/17 As above noted and described in consultation, patient severe peripheral vascular disease and the degree of narrowing is more than I actually expected. Patient has severe stenosis of distal external iliac arteries and bilateral common femoral arteries. Patient also has severe stenosis of SFA bilateral. At this point the issue is the left leg so this patient will need left common femoral/external iliac endarterectomy patch angioplasty as well as superficial femoral artery balloon angioplasty with possible stent Patient will need basic cardiac input prior to surgery but at this point in absence of surgery the distal wound will not heal adequately. Even with surgery patient has severe distal disease beyond trifurcation in the anterior posterior tibial arteries and peroneal artery and this is flow-limiting as well. There is no question however we got to improve the inflow as above-stated Patient is on Brilinta and should stay on it throughout the surgical course. He will in addition received heparin during the surgery Objective: Vital Signs Date Time Temp Pulse Resp B/P (MAP) Pulse Ox O2 Delivery O2 Flow Rate FiO2 02/28/17 12:00 99.7 92 16 95/51 (66) 95 02/28/17 08:00 98.8 93 17 95/55 (68) 95 02/28/17 00:00 97.6 81 17 120/68 (85) 96 02/27/17 20:00 99.1 111 17 116/71 (86) 95 02/27/17 18:00 83 18 114/75 (88) 96 Room Air 02/27/17 15:26 89 20 112/60 (77) 97 Room Air 02/27/17 15:24 97 Room Air 02/27/17 14:33 18 Labs: Laboratory Tests Test 02/28/17 06:25 White Blood Count 17.1 TH/MM3 (4.0-11.0) Red Blood Count 2.60 MIL/MM3 (4.50-5.90) Hemoglobin 7.3 GM/DL (13.0-17.0) Hematocrit 21.6 % (39.0-51.0) Mean Corpuscular Volume 83.2 FL (80.0-100.0) Mean Corpuscular Hemoglobin 28.2 PG (27.0-34.0) Mean Corpuscular Hemoglobin Concent 33.9 % (32.0-36.0) Red Cell Distribution Width 16.7 % (11.6-17.2) Platelet Count 352 TH/MM3 (150-450) Mean Platelet Volume 7.3 FL (7.0-11.0) Neutrophils (%) (Auto) 86.6 % (16.0-70.0) Lymphocytes (%) (Auto) 4.9 % (9.0-44.0) Monocytes (%) (Auto) 7.9 % (0.0-8.0) Eosinophils (%) (Auto) 0.5 % (0.0-4.0) Basophils (%) (Auto) 0.1 % (0.0-2.0) Neutrophils # (Auto) 14.8 TH/MM3 (1.8-7.7) Lymphocytes # (Auto) 0.8 TH/MM3 (1.0-4.8) Monocytes # (Auto) 1.4 TH/MM3 (0-0.9) Eosinophils # (Auto) 0.1 TH/MM3 (0-0.4) Basophils # (Auto) 0.0 TH/MM3 (0-0.2) CBC Comment DIFF FINAL Differential Comment Result Diagram: 02/28/17 0625 02/27/17 1445 Trisha Fleming MD Feb 28, 2017 13:36
--- NOTE | 2017-02-28 15:18 | PD.CONS ---
HPI Service Cardiology Physicians Consult Requested By Dr Gutierrez Reason for Consult severe PAD Primary Care Physician Kimi Snow MD History of Present Illness The patient is a 61 year old male with an extensive cardiac history including recent coronary stent 01/05/2017, atrial fibrillation s/p afib ablation 08/2015, ischemic CMP EF 35%, AICD, carotid stenosis, HLD, DM, obesity and smoking history. The patient presented to the hospital for left hallux discoloration and pain. 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 He was noted to have slow healing ulceration on the plantar surface of the foot just proximal to the left hallux. He also complains of SOB with minimal exertion and CP when he lays flat to go to sleep at night. Chest pain improves with nitroglycerin. The patient is anemic. He has dark stools that smell bad. He states that he take iron and has a history of recurrent blood transfusions. (Radha Sweeney) Review of Systems Consitutional: COMPLAINS OF: Fatigue, DENIES: Fever, Chills, Weight gain, Weight loss Eyes: DENIES: Amaurosis Fugax, Change in vision HEENT: DENIES: Lightheadedness, Change in hearing Respiratory: COMPLAINS OF: Shortness of breath, DENIES: See HPI, Cough, Snoring , Wheezing, Sputum production Cardiovascular: COMPLAINS OF: Chest pain, DENIES: See HPI, Palpitations, Syncope, Tachycardia Gastrointestinal: COMPLAINS OF: Melena, DENIES: Nausea, Vomiting, Change in bowel habits, Reflux, Bloody stools Genitourinary: DENIES: Urinary incontinence, Difficulty voiding Integumentary: DENIES: Rash Neurologic: DENIES: Tingling or numbness, Memory problems, Poor Balance, Stroke symptoms Musculoskeletal: DENIES: Joint pain, Muscle pain, Limited range of motion, Back pain Psychiatric: DENIES: Anxiety, Depression, Sleep disturbances Hematologic: DENIES: Bruising tendencies, Bleeding tendencies Endocrine: DENIES: Weight gain, Weight loss, Thyroid disease (Radha Sweeney ) Past Family Social History Allergies: Coded Allergies: cyclobenzaprine (Unverified Allergy, Severe, Flushing, 02/27/17) REDNESS lisinopril (Unverified Allergy, Unknown, Swelling, 02/27/17) ANGIOEDEMA Past Medical History See HPI Past Surgical History Cardiac cath 01/05/[address] Lakesha Benites AICD 11/2015 Cardiac cath 10/2015 Atrial fibrillation ablation 08/2015 CABG 2002 Reported Medications Reported Meds & Active Scripts Active Ciprofloxacin (Ciprofloxacin HCl) 500 Mg Tab 500 Mg PO BID Clindamycin (Clindamycin HCl) 300 Mg Cap 300 Mg PO Q6H Carvedilol 6.25 Mg Tab 6.25 Mg PO BID Brilinta (Ticagrelor) 90 Mg Tab 90 Mg PO BID Aspirin Low Strength (Aspirin) 81 Mg Chew 81 Mg PO DAILY Reported Simvastatin 40 Mg Tab 40 Mg PO HS Furosemide 80 Mg Tab 80 Mg PO BID Zetia (Ezetimibe) 10 Mg Tab 10 Mg PO HS Effexor (Venlafaxine HCl) 75 Mg Tab 75 Mg PO DAILY Nitrostat SL (Nitroglycerin) 0.4 Mg Subl 0.4 Mg SL DIRECTED PRN 1 tablet under the tongue as needed for chest pain. Repeat every 5 minutes for a total of 3 DOSES or call 911 if NO relief. Clonazepam 0.5 Mg Tab 0.5 Mg PO BID Levothyroxine (Levothyroxine Sodium) 25 Mcg Tab 25 Mcg PO DAILY Aldactone (Spironolactone) 25 Mg Tab 25 Mg PO BIDPC Gabapentin 100 Mg Cap 100 Mg PO QID Glipizide 5 Mg Tab 5 Mg PO DAILY Take 30 minutes before a meal Krill Oil 500 Mg Capsule 500 Mg PO BID Multivitamins (Multivitamin) 1 Each Tab.chew 1 Tab PO DAILY Ferosul (Ferrous Sulfate) 325 Mg Tablet 325 Mg PO BID Pioglitazone (Pioglitazone HCl) 45 Mg Tab 45 Mg PO DAILY Losartan (Losartan Potassium) 25 Mg Tab 25 Mg PO DAILY Metformin (Metformin HCl) 500 Mg Tab 500 Mg PO BID With meals Active Ordered Medications Current Medications Medications (Trade) Dose Ordered Sig/Hugo Route Start Time Stop Time Status Last Admin (D50w (Vial) Inj) 50 ml UNSCH PRN IV 02/27/17 16:45 (Glucagon Inj) 1 mg UNSCH PRN OTHER 02/27/17 16:45 (NovoLOG SUPPLEMENTAL SCALE) 1 ACHS SLIDING SCALE SQ 02/27/17 21:00 02/28/17 11:50 Piperacillin Sod/ Tazobactam Sod 50 ml @ 100 mls/hr Q6H IV 02/27/17 21:00 02/28/17 08:28 Pharmacy Profile Note 0 ml @ 0 mls/hr UNSCH OTHER 02/27/17 16:45 (Aspirin Chew) 81 mg DAILY PO 02/28/17 09:00 02/28/17 08:29 (Coreg) 6.25 mg BID PO 02/27/17 21:00 02/27/17 23:54 (KlonoPIN) 0.5 mg BID PO 02/27/17 21:00 02/28/17 08:29 (Zetia) 10 mg HS PO 02/27/17 21:00 02/27/17 23:53 (Ferrous Sulfate) 325 mg BID PO 02/27/17 21:00 02/28/17 08:29 (Lasix) 80 mg BID PO 02/27/17 21:00 02/27/17 23:54 (Neurontin) 100 mg QID PO 02/27/17 18:00 02/28/17 13:00 (Synthroid) 25 mcg DAILY@0600 PO 02/28/17 06:00 02/28/17 04:35 (Cozaar) 25 mg DAILY PO 02/28/17 09:00 (Aldactone) 25 mg BIDPC PO 02/27/17 18:00 02/28/17 08:29 (Brilinta) 90 mg BID PO 02/27/17 21:00 02/28/17 08:30 ([place] 5-325 Mg) 1 tab Q4H PRN PO 02/27/17 19:00 02/28/17 04:43 (Pravachol) 80 mg HS PO 02/27/17 21:00 02/27/17 23:53 Vancomycin HCl 1750 mg/Sodium Chloride 517.5 ml @ 257.5 mls/ hr Q24H IV 02/28/17 21:00 Miscellaneous Information SPECIFIC LAB TO BE MARIO... ONCE ONCE .XX 03/02/17 20:45 03/02/17 20:46 (Dilaudid Pf Inj) 1 mg Q4H PRN IV PUSH 02/28/17 11:00 (Winona 5-325 Mg) 2 tab Q4H PRN PO 02/28/17 11:00 02/28/17 11:54 Family History non contributory Social History Quit smoking, but continues to have rare cigarettes non ETOH , ICU nurse at (Radha Sweeney) Physical Exam Vital Signs Vital Signs Date Time Temp Pulse Resp B/P (MAP) Pulse Ox O2 Delivery O2 Flow Rate FiO2 02/28/17 12:00 99.7 92 16 95/51 (66) 95 02/28/17 08:00 98.8 93 17 95/55 (68) 95 02/28/17 00:00 97.6 81 17 120/68 (85) 96 02/27/17 20:00 99.1 111 17 116/71 (86) 95 02/27/17 18:00 83 18 114/75 (88) 96 Room Air 02/27/17 15:26 89 20 112/60 (77) 97 Room Air 02/27/17 15:24 97 Room Air Physical Exam GENERAL: Middle age male, pallor SKIN: Warm and dry. HEAD: Atraumatic. Normocephalic. EYES: Pupils equal and round. No scleral icterus. ENT: No nasal bleeding or discharge. Mucous membranes pink and moist. NECK: Trachea midline. Carotid bruit CARDIOVASCULAR: Regular rate and rhythm. ICD RESPIRATORY: No accessory muscle use. Clear to auscultation. Breath sounds equal bilaterally. GASTROINTESTINAL: Abdomen soft, non-tender, nondistended. MUSCULOSKELETAL: LEFT hallux ischemic, 1.5 inch circum well demarcated ulcer with surrounding erythema NEUROLOGICAL: Awake and alert. No obvious cranial nerve deficits. Motor grossly within normal limits. Five out of 5 muscle strength in the arms and legs. Normal speech. PSYCHIATRIC: Appropriate mood and affect; insight and judgment normal. Laboratory Laboratory Tests Test 02/27/17 16:45 02/28/17 06:25 Urine Color YELLOW Urine Turbidity CLEAR Urine pH 5.5 Urine Specific [place] 1.011 Urine Protein TRACE Urine Glucose (UA) NEG Urine Ketones NEG Urine Occult Blood NEG Urine Nitrite NEG Urine Bilirubin NEG Urine Urobilinogen LESS THAN 2.0 Urine Leukocyte Esterase NEG Microscopic Urinalysis Comment CATH-CULT NOT IND White Blood Count 17.1 Red Blood Count 2.60 Hemoglobin 7.3 Hematocrit 21.6 Mean Corpuscular Volume 83.2 Mean Corpuscular Hemoglobin 28.2 Mean Corpuscular Hemoglobin Concent 33.9 Red Cell Distribution Width 16.7 Platelet Count 352 Mean Platelet Volume 7.3 Neutrophils (%) (Auto) 86.6 Lymphocytes (%) (Auto) 4.9 Monocytes (%) (Auto) 7.9 Eosinophils (%) (Auto) 0.5 Basophils (%) (Auto) 0.1 Neutrophils # (Auto) 14.8 Lymphocytes # (Auto) 0.8 Monocytes # (Auto) 1.4 Eosinophils # (Auto) 0.1 Basophils # (Auto) 0.0 CBC Comment DIFF FINAL Differential Comment Date/Time Source Procedure Growth Status 02/27/17 14:45 Blood Peripheral Aerobic Blood Culture - Preliminary NO GROWTH IN 1 DAY Resulted 02/27/17 14:45 Blood Peripheral Anaerobic Blood Culture - Preliminary NO GROWTH IN 1 DAY Resulted (Radha Sweeney) Result Diagram: 02/28/17 0625 02/27/17 1445 Imaging Last 72 hours Impressions Chest X-Ray 02/27/17 1407 Signed Impressions: Service Date/Time: Monday, February 27, 2017 14:23 - CONCLUSION: Some worsening of the left lower lobe infiltrate. Stable cardiomegaly. Pascual Roe Jr., MD Foot X-Ray 02/27/17 0000 Signed Impressions: Service Date/Time: Monday, February 27, 2017 14:20 - CONCLUSION: Soft tissue ulcer with subcutaneous emphysema. No evidence of osteomyelitis. Jase Sargent MD Aorta w/Runoff CTA 02/27/17 0000 Signed Impressions: Service Date/Time: Monday, February 27, 2017 17:08 - CONCLUSION: 1. Severe atherosclerotic disease of the abdominal aorta and its major branches and within both lower extremities. There is a moderate to severe stenosis of the midportion of the superficial femoral artery bilaterally but no vessel occlusion is identified. 2. Moderate size left pleural effusion. Justus Martinez MD (Radha Sweeney) Assessment and Plan Assessment and Plan Ischemic left hallux pending surgical clearance ASHD s/p recent coronary stent 01/05/2017 Severe PAD Moderate carotid artery stenosis History of atrial fibrillation s/p atrial fibrillation ablation. he has not been on Eliquis. Last office device check 12/20/2016. No identified atrial fibrillation on device check Symptomatic anemia DM HLD Obesity PLAN: Transfuse 2 units RBC with Lasix IV 20 mg between each unit. Check occult stool Check lipid panel.Change to high intensity statin Telemetry monitoring Agree with continuing ASA and Brilinta with additional heparin during vascular procedure. Patient seen and evaluated by Dr Steele who completed face to face encounter, completed physical exam and participated in evaluation and management (Radha Sweeney) Assessment and Plan The exam, history, and the medical decision-making described in the above note were completed with the assistance of the mid-level provider. I reviewed and agree with the findings presented. I attest that I had a [id number] encounter with the patient on the same day, and personally performed and documented my assessment and findings in the medical record. Will clear for surgery. (Diana Steele MD) Radha Sweeney Feb 28, 2017 15:18 Diana Steele MD Mar 01, 2017 12:57
--- NOTE | 2017-02-28 16:15 | PD.CONS ---
History of Present Illness Service Podiatry Consult Requested By ED Reason for Consult L necrotic hallux with plantar wound Primary Care Physician Kimi Snow MD Diagnoses: History of Present Illness Patient has been seen most recently by Dr Eid for wound L plantar hallux toe sulcus area and has been having packing changed to the area. The toe recently began to turn dark and the foot red with swelling, which caused concern and patient/family to come back in for admission. Past Family Social History Allergies: Coded Allergies: cyclobenzaprine (Unverified Allergy, Severe, Flushing, 02/27/17) REDNESS lisinopril (Unverified Allergy, Unknown, Swelling, 02/27/17) ANGIOEDEMA Past Medical History 1. Coronary artery disease with NSTEMI in December this year. 2. Coronary artery bypass surgery. 3. Chronic a fib with previous ablation. 4. History of ventricular systolic dysfunction. 5. Ischemic cardiomyopathy. 6. V-tach episodes. 7. Hypertension about 25 years. 8. Diabetes mellitus. 9. COPD. 10. Hyperlipidemia. 11. Severe distal neuropathy. Past Surgical History 1. CABG. 2. Cardiac catheterization several times with stent placements in 2005, 2006, 2010 and 2016. 3. Defibrillator pacemaker placement. Active Ordered Medications Current Medications Medications (Trade) Dose Ordered Sig/Hugo Route Start Time Stop Time Status Last Admin (D50w (Vial) Inj) 50 ml UNSCH PRN IV 02/27/17 16:45 (Glucagon Inj) 1 mg UNSCH PRN OTHER 02/27/17 16:45 (NovoLOG SUPPLEMENTAL SCALE) 1 ACHS SLIDING SCALE SQ 02/27/17 21:00 02/28/17 11:50 Piperacillin Sod/ Tazobactam Sod 50 ml @ 100 mls/hr Q6H IV 02/27/17 21:00 02/28/17 15:41 Pharmacy Profile Note 0 ml @ 0 mls/hr UNSCH OTHER 02/27/17 16:45 (Aspirin Chew) 81 mg DAILY PO 02/28/17 09:00 02/28/17 08:29 (Coreg) 6.25 mg BID PO 02/27/17 21:00 02/27/17 23:54 (KlonoPIN) 0.5 mg BID PO 02/27/17 21:00 02/28/17 08:29 (Zetia) 10 mg HS PO 02/27/17 21:00 02/27/17 23:53 (Ferrous Sulfate) 325 mg BID PO 02/27/17 21:00 02/28/17 08:29 (Lasix) 80 mg BID PO 02/27/17 21:00 02/28/17 09:00 (Neurontin) 100 mg QID PO 02/27/17 18:00 02/28/17 13:00 (Synthroid) 25 mcg DAILY@0600 PO 02/28/17 06:00 02/28/17 04:35 (Cozaar) 25 mg DAILY PO 02/28/17 09:00 (Aldactone) 25 mg BIDPC PO 02/27/17 18:00 02/28/17 08:29 (Brilinta) 90 mg BID PO 02/27/17 21:00 02/28/17 08:30 ([place] 5-325 Mg) 1 tab Q4H PRN PO 02/27/17 19:00 02/28/17 04:43 (Pravachol) 80 mg HS PO 02/27/17 21:00 02/27/17 23:53 Vancomycin HCl 1750 mg/Sodium Chloride 517.5 ml @ 257.5 mls/ hr Q24H IV 02/28/17 21:00 Miscellaneous Information SPECIFIC LAB TO BE MARIO... ONCE ONCE .XX 03/02/17 20:45 03/02/17 20:46 (Dilaudid Pf Inj) 1 mg Q4H PRN IV PUSH 02/28/17 11:00 ([place]oy 5-325 Mg) 2 tab Q4H PRN PO 02/28/17 11:00 02/28/17 11:54 Social History The patient was a smoker until about a year and half ago, smoking about two packs a day. Physical Exam Vital Signs Vital Signs Date Time Temp Pulse Resp B/P (MAP) Pulse Ox O2 Delivery O2 Flow Rate FiO2 02/28/17 12:00 99.7 92 16 95/51 (66) 95 02/28/17 08:00 98.8 93 17 95/55 (68) 95 02/28/17 00:00 97.6 81 17 120/68 (85) 96 02/27/17 20:00 99.1 111 17 116/71 (86) 95 02/27/17 18:00 83 18 114/75 (88) 96 Room Air Physical Exam L foot warm, edematous, erythematous to ankle area with cold purple great toe. Plantar hallux toe sulcus with full thickness wound. No sunita purulence expressed from the area. No foul odor. Sensation absent to light touch/sharp dull. Pulses not palpable. Laboratory Laboratory Tests Test 02/27/17 16:45 02/28/17 06:25 Urine Color YELLOW Urine Turbidity CLEAR Urine pH 5.5 Urine Specific [place] 1.011 Urine Protein TRACE Urine Glucose (UA) NEG Urine Ketones NEG Urine Occult Blood NEG Urine Nitrite NEG Urine Bilirubin NEG Urine Urobilinogen LESS THAN 2.0 Urine Leukocyte Esterase NEG Microscopic Urinalysis Comment CATH-CULT NOT IND White Blood Count 17.1 Red Blood Count 2.60 Hemoglobin 7.3 Hematocrit 21.6 Mean Corpuscular Volume 83.2 Mean Corpuscular Hemoglobin 28.2 Mean Corpuscular Hemoglobin Concent 33.9 Red Cell Distribution Width 16.7 Platelet Count 352 Mean Platelet Volume 7.3 Neutrophils (%) (Auto) 86.6 Lymphocytes (%) (Auto) 4.9 Monocytes (%) (Auto) 7.9 Eosinophils (%) (Auto) 0.5 Basophils (%) (Auto) 0.1 Neutrophils # (Auto) 14.8 Lymphocytes # (Auto) 0.8 Monocytes # (Auto) 1.4 Eosinophils # (Auto) 0.1 Basophils # (Auto) 0.0 CBC Comment DIFF FINAL Differential Comment Date/Time Source Procedure Growth Status 02/27/17 14:45 Blood Peripheral Aerobic Blood Culture - Preliminary NO GROWTH IN 1 DAY Resulted 02/27/17 14:45 Blood Peripheral Anaerobic Blood Culture - Preliminary NO GROWTH IN 1 DAY Resulted Result Diagram: 02/28/17 0625 02/27/17 1445 Imaging Last Impressions Chest X-Ray 02/27/17 1407 Signed Impressions: Service Date/Time: Monday, February 27, 2017 14:23 - CONCLUSION: Some worsening of the left lower lobe infiltrate. Stable cardiomegaly. Pascual Roe Jr., MD Foot X-Ray 02/27/17 0000 Signed Impressions: Service Date/Time: Monday, February 27, 2017 14:20 - CONCLUSION: Soft tissue ulcer with subcutaneous emphysema. No evidence of osteomyelitis. Jase Sargent MD Aorta w/Runoff CTA 02/27/17 0000 Signed Impressions: Service Date/Time: Monday, February 27, 2017 17:08 - CONCLUSION: 1. Severe atherosclerotic disease of the abdominal aorta and its major branches and within both lower extremities. There is a moderate to severe stenosis of the midportion of the superficial femoral artery bilaterally but no vessel occlusion is identified. 2. Moderate size left pleural effusion. Justus Martinez MD Assessment and Plan Assessment and Plan Gangrene L hallux Ulcer L foot Cellulitis L foot Await vascular plan to determine best course of action. Continue IV antibiotics for now and await further demarcation. Marlene Hatfield DPM Feb 28, 2017 16:15
--- NOTE | 2017-02-28 17:21 | ECHRPT ---
Indication: cardioarterial embolism l leg a fib CONCLUSIONS Mildly dilated left ventricle. Wall thickness is normal. The left ventricular systolic function is severely reduced with an estimated ejection fraction in the range of 20-25%. There is global hypokinesis. The right ventricle was not well visualized. The right ventricular systoilc function may be mildly reduced. The left atrial size is mildly dilated. The right atrial size is mildly dilated. Mild mitral valve regurgitation. Mild mitral annular calcification. Mild sclerosis and mild calcification of the right coronary cusp of the aortic valve. BP: / HR: Rhythm: MEASUREMENTS (Male / Female) Normal Values Technical Quality:Good 2D ECHO LV Diastolic Diameter PLAX 6.0 cm 4.2 - 5.9 / 3.9 - 5.3 cm LV Systolic Diameter PLAX 5.5 cm IVS Diastolic Thickness 1.2 cm 0.6 - 1.0 / 0.6 - 0.9 cm LVPW Diastolic Thickness 0.7 cm 0.6 - 1.0 / 0.6 - 0.9 cm LV Relative Wall Thickness 0.3 LA Systolic Diameter LX 4.3 cm 3.0 - 4.0 / 2.7 - 3.8 cm M-MODE Aortic Root Diameter MM 3.2 cm AV Cusp Separation MM 1.8 cm DOPPLER AV Peak Velocity 208.0 cm/s AV Peak Gradient 17.3 mmHg AV Mean Gradient 10.0 mmHg AV Velocity Time Integral 39.4 cm LVOT Peak Velocity 74.7 cm/s LVOT Peak Gradient 2.2 mmHg MR Peak Velocity 448.0 cm/s MR Peak Gradient 80.3 mmHg Mitral E Point Velocity 118.0 cm/s Mitral A Point Velocity 43.2 cm/s Mitral E to A Ratio 2.7 TR Peak Velocity 307.0 cm/s TR Peak Gradient 37.7 mmHg FINDINGS LEFT VENTRICLE Mildly dilated left ventricle. Wall thickness is normal. The left ventricular systolic function is severely reduced with an estimated ejection fraction in th e range of 20-25%. There is global hypokinesis. RIGHT VENTRICLE The right ventricle was not well visualized. The right ventricular systoilc function may be mildly reduced. LEFT ATRIUM The left atrial size is mildly dilated. RIGHT ATRIUM The right atrial size is mildly dilated. ATRIAL SEPTUM Normal atrial septal thickness without atrial level shunting by limited color doppler interrogation. AORTA The aortic root and proximal ascending aorta are normal in size on limited imaging. MITRAL VALVE Mild mitral valve regurgitation. Mild mitral annular calcification. AORTIC VALVE Mild sclerosis and mild calcification of the right coronary cusp of the aortic valve. TRICUSPID VALVE Structurally normal tricuspid valve. No tricuspid valve stenosis or regurgitation. PULMONARY VALVE The pulmonary valve is not well visualized. VESSELS The inferior vena cava is normal in size. PERICARDIUM No pericardial effusion. Austyn Stallworth MD (Electronically Signed) Final Date:28 February 2017 17:19
[2017-02-28] MEDS ORDERED: FUROSEMIDE 20 MG/2 ML VIAL IV ONE (17:30)
[2017-02-28] MEDS ORDERED: SODIUM CHLOR 0.9% 250 ML INJ 250 ML IV ONE (17:30)
--- NOTE | 2017-02-28 19:12 | PD.ID.CON ---
History of Present Illness Service ID Consult Requested By Donnell Reason for Consult foot infx Primary Care Physician Kimi Snow MD Diagnoses: History of Present Illness Patient has been seen most recently by Dr Eid for wound L plantar hallux toe sulcus area and has been having packing changed to the area. The toe recently began to turn dark and the foot red with swelling, which caused concern and patient/family to come back in for admission. Pt co pain L foot Pt was seen by Dr Fleming and work up revealed severe peripheral vascular disease with severe stenosis of distal external iliac arteries and bilateral common femoral arteries, severe stenosis of SFA bilateral. Dr Gutierrez is plannifina left common femoral/external iliac endarterectomy patch angioplasty as well as superficial femoral artery balloon angioplasty with possible stent Pt has significan t leukocytosis of 18 K and intermittnet low grade fever of < 100F He is on broad spectrum abx (zosyn, vancomycin), blood clx are negative Pt's foot X ray showed Soft tissue ulcer with subcutaneous emphysema. No evidence of osteomyelitis. Also he has LLL infiltrate ion CXR , he told m e he had PNA 1 month ago He endorses dry cough, long standing, no expectoration no hemoptysis Review of Systems Respiratory: COMPLAINS OF: Cough, Shortness of breath Musculoskeletal: COMPLAINS OF: Muscle aches Neurologic: COMPLAINS OF: Abnormal gait Except as stated in HPI: all other systems reviewed are Neg Past Family Social History Allergies: Coded Allergies: cyclobenzaprine (Unverified Allergy, Severe, Flushing, 02/27/17) REDNESS lisinopril (Unverified Allergy, Unknown, Swelling, 02/27/17) ANGIOEDEMA Past Medical History 1. Coronary artery disease with NSTEMI in December this year. 2. Coronary artery bypass surgery. 3. Chronic a fib with previous ablation. 4. History of ventricular systolic dysfunction. 5. Ischemic cardiomyopathy. 6. V-tach episodes. 7. Hypertension about 25 years. 8. Diabetes mellitus. 9. COPD. 10. Hyperlipidemia. 11. Severe distal neuropathy. H/ o C.diff 1 yr ago Past Surgical History 1. CABG. 2. Cardiac catheterization several times with stent placements in 2005, 2006, 2010 and 2017. 3. Defibrillator pacemaker placement. Active Ordered Medications Medications where reviewed in EMR Antibiotics Include: vancomycin zosyn Family History Heart disease, Mother and Brother DM, Mother Social History The patient was a smoker until about a year and half ago, smoking about two packs a day. No ETOH or illicits Physical Exam Vital Signs Vital Signs Date Time Temp Pulse Resp B/P (MAP) Pulse Ox O2 Delivery O2 Flow Rate FiO2 02/28/17 16:00 99.4 89 17 102/55 (71) 93 02/28/17 12:00 99.7 92 16 95/51 (66) 95 02/28/17 08:00 98.8 93 17 95/55 (68) 95 02/28/17 00:00 97.6 81 17 120/68 (85) 96 02/27/17 20:00 99.1 111 17 116/71 (86) 95 Physical Exam CONSTITUTIONAL/GENERAL: This is an obese elderly male patient, in no apparent distress. TUBES/LINES/DRAINS: SKIN: No jaundice, rashes, or lesions. Skin temperature appropriate. Not diaphoretic. HEAD: Atraumatic. Normocephalic. EYES: Pupils equal and round and reactive. No injection or drainage. Fundi not examined. ENT: Hearing grossly normal. Nose without bleeding or purulent drainage. Oral mucosae moist without visible erythema, exudates, masses, or lesions. NECK: Trachea midline. Supple, nontender. CARDIOVASCULAR: Regular rate and rhythm without murmurs, gallops, or rubs. No JVD. Peripheral pulses symmetric. RESPIRATORY/CHEST: Symmetric, unlabored respirations. Clear to auscultation. Breath sounds equal bilaterally. No wheezes, rales, or rhonchi. GASTROINTESTINAL: Abdomen soft, non-tender, nondistended. No hepato-splenomegaly , or palpable masses. No guarding. Bowel sounds present. GENITOURINARY: Without palpable bladder distension. . MUSCULOSKELETAL: Extremities without clubbing, No joint tenderness or effusion noted. No calf tenderness. No mottling or clubbing. LLE with prominent edema, erythem aextenditng to forefoot L hallux exam cw wet gangrene: toe is swollen; dark purple color, with foul odor Neuropahtic ulcer noted with necrotic bed @ the base of L hallux LYMPHATICS: No palpable cervical or supraclavicular adenopathy. NEUROLOGICAL: Awake and alert. Motor and sensory grossly within normal limits. Follows commands. Clear speech. Moves all extremities. PSYCHIATRIC: No obvious anxiety/depression. no apparent hallucinations or other psychotic thought process. Laboratory Laboratory Tests Test 02/28/17 06:25 White Blood Count 17.1 Red Blood Count 2.60 Hemoglobin 7.3 Hematocrit 21.6 Mean Corpuscular Volume 83.2 Mean Corpuscular Hemoglobin 28.2 Mean Corpuscular Hemoglobin Concent 33.9 Red Cell Distribution Width 16.7 Platelet Count 352 Mean Platelet Volume 7.3 Neutrophils (%) (Auto) 86.6 Lymphocytes (%) (Auto) 4.9 Monocytes (%) (Auto) 7.9 Eosinophils (%) (Auto) 0.5 Basophils (%) (Auto) 0.1 Neutrophils # (Auto) 14.8 Lymphocytes # (Auto) 0.8 Monocytes # (Auto) 1.4 Eosinophils # (Auto) 0.1 Basophils # (Auto) 0.0 CBC Comment DIFF FINAL Differential Comment Date/Time Source Procedure Growth Status 02/27/17 14:45 Blood Peripheral Aerobic Blood Culture - Preliminary NO GROWTH IN 1 DAY Resulted 02/27/17 14:45 Blood Peripheral Anaerobic Blood Culture - Preliminary NO GROWTH IN 1 DAY Resulted Result Diagram: 02/28/17 0625 02/27/17 1445 Imaging Last Impressions Chest X-Ray 02/27/17 1407 Signed Impressions: Service Date/Time: Monday, February 27, 2017 14:23 - CONCLUSION: Some worsening of the left lower lobe infiltrate. Stable cardiomegaly. Pascual Roe Jr., MD Foot X-Ray 02/27/17 0000 Signed Impressions: Service Date/Time: Monday, February 27, 2017 14:20 - CONCLUSION: Soft tissue ulcer with subcutaneous emphysema. No evidence of osteomyelitis. Jase Sargent MD Aorta w/Runoff CTA 02/27/17 0000 Signed Impressions: Service Date/Time: Monday, February 27, 2017 17:08 - CONCLUSION: 1. Severe atherosclerotic disease of the abdominal aorta and its major branches and within both lower extremities. There is a moderate to severe stenosis of the midportion of the superficial femoral artery bilaterally but no vessel occlusion is identified. 2. Moderate size left pleural effusion. Justus Martinez MD Assessment and Plan Assessment and Plan PVD, severe disease L hallux DFI, L hallux wet gandrene with ascending cellulitis - severe limb threatening, Multiple med problems includingh DM - cont vancomycin - cont zosyn agree with plans for revascularisation with subsequent amputatiion Discussed Condition With pt dgtr @ b/s Aby Lucia MD Feb 28, 2017 19:12
[2017-02-28 19:46] LABS: TRANSFERRIN IRON PROFILE 210 MG/DL (200-360)
[2017-02-28 19:48] LABS: FERRITIN 145 NG/ML (26-388)
--- NOTE | 2017-02-28 19:58 | EKG ---
Date Performed: 02/27/2017 Time Performed: 15:07:11 PTAGE: 61 years EKG: ELECTRONIC VENTRICULAR PACEMAKER ABNORMAL RHYTHM ECG PREVIOUS TRACING : 02/22/2017 16.48 Compared to prior tracing no significant change DOCTOR: Vy Crowder Interpretating Date/Time 02/28/2017 19:56:50
[2017-02-28] MEDS: EZETIMIBE 10 MG TAB PO SCH (20:32)
[2017-02-28] MEDS ORDERED: VANCOMYCIN INJ 1,750 MG in SODIUM CHLORID 0.9% 500 ML INJ 500 ML IV SCH (21:00)
[2017-03-01] VITALS (8 sets, daily range): BP systolic 97–121; BP diastolic 52–64; PULSE 76–95; RESP 16–20; TEMP 96.7–100.1; O2SAT 94–97
[2017-03-01] MEDS: ACETAMINOPHEN/HYDROcodone 325 MG/5 MG TAB PO PRN ×5 (01:36→21:03)
[2017-03-01] MEDS: PIPERACIL-TAZO 3.375 GM PREMIX 50 ML IV SCH ×4 (01:36→20:01)
[2017-03-01] MEDS: LEVOTHYROXINE SODIUM 25 MCG TAB PO SCH (04:28)
[2017-03-01] MEDS: INSULIN ASPART SUPPLEMENTAL SCALE SQ SCH ×4 (05:46→20:48)
[2017-03-01 07:36] LABS: AUTOMATED NEUTROPHIL # 18.6 TH/MM3 (1.8-7.7); BASOPHIL # 0.1 TH/MM3 (0-0.2); BASOPHIL % 0.4 % (0.0-2.0); EOSINOPHIL # 0.1 TH/MM3 (0-0.4); EOSINOPHIL % 0.3 % (0.0-4.0); HEMATOCRIT 23.9 % (39.0-51.0); HEMO FLAGS DIFF FINAL; LYMPH % 4.5 % (9.0-44.0); MEAN CORPUSCULAR HEMOGLOBIN 28.4 PG (27.0-34.0); MEAN CORPUSCULAR HGB CONC 34.6 % (32.0-36.0); MONO % 7.1 % (0.0-8.0); NEUT % 87.7 % (16.0-70.0); PLATELET COUNT 332 TH/MM3 (150-450); RED BLOOD COUNT 2.91 MIL/MM3 (4.50-5.90); RED CELL DISTRIBUTION WIDTH 16.5 % (11.6-17.2); WHITE BLOOD COUNT 21.2 TH/MM3 (4.0-11.0)
[2017-03-01 08:06] LABS: BICARBONATE 17.5 MEQ/L (21.0-32.0); POTASSIUM 3.7 MEQ/L (3.5-5.1)
[2017-03-01 08:08] LABS: HDL CHOLESTEROL 19.9 MG/DL (40.0-60.0)
[2017-03-01] MEDS: FERROUS SULFATE 325 MG (65 MG ELEMENTAL IRON) TAB PO SCH ×2 (08:18→20:05)
[2017-03-01] MEDS: GABAPENTIN 100 MG CAP PO SCH ×4 (08:18→20:06)
[2017-03-01] MEDS: clonazePAM 0.5 MG TAB PO SCH ×2 (08:18→20:05)
[2017-03-01] MEDS: LOSARTAN 25 MG TAB PO SCH (08:19)
[2017-03-01] MEDS: CARVEDILOL 6.25 MG TAB PO SCH ×2 (08:19→20:04)
[2017-03-01] MEDS: TICAGRELOR 90 MG TAB PO SCH ×2 (08:19→20:04)
[2017-03-01] MEDS: FUROSEMIDE 80 MG TAB PO SCH ×2 (08:20→20:05)
[2017-03-01] MEDS: ATORVASTATIN 80 MG TAB PO SCH (08:20)
[2017-03-01] MEDS: SPIRONOLACTONE 25 MG TAB PO SCH (08:20)
[2017-03-01] MEDS: ASPIRIN 81 MG CHEW TAB PO SCH (08:20)
--- NOTE | 2017-03-01 08:33 | EKG ---
Date Performed: 02/28/2017 Time Performed: 14:25:05 PTAGE: 61 years EKG: ELECTRONIC VENTRICULAR PACEMAKER ABNORMAL RHYTHM ECG PREVIOUS TRACING : 02/27/2017 15.07 No significant change from previous tracing noted. DOCTOR: Austyn Stallworth Interpretating Date/Time 03/01/2017 08:31:36
--- NOTE | 2017-03-01 09:58 | PD.CAR.PN ---
CVT Progress Note Subjective/Hospital Course: Patient with gangrene of the left hallux and cellulitis of the left foot diabetes mellitus and A. fib Likely patient has suffered cardioarterial or arterial arterial embolism and trashed left foot CTA pending but I do believe the patient has appreciable degree of peripheral vascular disease that may require reconstruction and I believe he will have moderate stenosis in superficial femoral arteries with probably significant calcifications in the distal vessels beyond trifurcation. In addition patient has left internal carotid occlusion and hemodynamically significant right stenosis so this will have to be dealt with at some point as well Full consult dictated Thanks J 02/28/17 As above noted and described in consultation, patient severe peripheral vascular disease and the degree of narrowing is more than I actually expected. Patient has severe stenosis of distal external iliac arteries and bilateral common femoral arteries. Patient also has severe stenosis of SFA bilateral. At this point the issue is the left leg so this patient will need left common femoral/external iliac endarterectomy patch angioplasty as well as superficial femoral artery balloon angioplasty with possible stent Patient will need basic cardiac input prior to surgery but at this point in absence of surgery the distal wound will not heal adequately. Even with surgery patient has severe distal disease beyond trifurcation in the anterior posterior tibial arteries and peroneal artery and this is flow-limiting as well. There is no question however we got to improve the inflow as above-stated Patient is on Brilinta and should stay on it throughout the surgical course. He will in addition received heparin during the surgery 03/01/17 Patient doing well at this time Combination of clinical findings and CTA is described above in the reveals bilateral severe vascular occlusive disease. Patient is scheduled tomorrow for common femoral and external iliac endarterectomy followed by balloon angioplasty of the SFA I believe that this will be successful procedure without a need for femoropopliteal bypass but I will leave this as a last resort option In addition patient has diffuse small vessel disease beyond the trifurcation but there is no endovascular or open procedure that would fix that Halux to be amputated and treated as per podiatry Cardiology consult is greatly appreciated and a clear that this patient has significant risk of surgery with underlying coronary artery disease as well as low ejection fraction to start with Objective: Vital Signs Date Time Temp Pulse Resp B/P (MAP) Pulse Ox O2 Delivery O2 Flow Rate FiO2 03/01/17 08:00 98.8 76 16 97/56 (70) 97 03/01/17 03:01 99.6 95 20 99/55 95 03/01/17 01:35 100.1 94 18 98/54 96 02/28/17 21:55 100.7 18 107/50 02/28/17 21:30 99.7 89 18 98/52 02/28/17 20:00 99.7 89 18 98/57 (71) 97 02/28/17 16:00 99.4 89 17 102/55 (71) 93 02/28/17 12:00 99.7 92 16 95/51 (66) 95 Labs: Laboratory Tests Test 03/01/17 06:32 03/01/17 06:57 Blood Urea Nitrogen 32 MG/DL (7-18) Creatinine 1.99 MG/DL (0.60-1.30) Random Glucose 171 MG/DL (74-106) Calcium Level 8.5 MG/DL (8.5-10.1) Sodium Level 126 MEQ/L (136-145) Potassium Level 3.7 MEQ/L (3.5-5.1) Chloride Level 95 MEQ/L (98-107) Carbon Dioxide Level 17.5 MEQ/L (21.0-32.0) Anion Gap 14 MEQ/L (5-15) Estimat Glomerular Filtration Rate 34 ML/MIN (>89) Triglycerides Level 80 MG/DL (42-150) Cholesterol Level 86 MG/DL (120-200) LDL Cholesterol 50 MG/DL (0-99) HDL Cholesterol 19.9 MG/DL (40.0-60.0) Cholesterol/HDL Ratio 4.32 RATIO White Blood Count 21.2 TH/MM3 (4.0-11.0) Red Blood Count 2.91 MIL/MM3 (4.50-5.90) Hemoglobin 8.3 GM/DL (13.0-17.0) Hematocrit 23.9 % (39.0-51.0) Mean Corpuscular Volume 82.0 FL (80.0-100.0) Mean Corpuscular Hemoglobin 28.4 PG (27.0-34.0) Mean Corpuscular Hemoglobin Concent 34.6 % (32.0-36.0) Red Cell Distribution Width 16.5 % (11.6-17.2) Platelet Count 332 TH/MM3 (150-450) Mean Platelet Volume 7.3 FL (7.0-11.0) Neutrophils (%) (Auto) 87.7 % (16.0-70.0) Lymphocytes (%) (Auto) 4.5 % (9.0-44.0) Monocytes (%) (Auto) 7.1 % (0.0-8.0) Eosinophils (%) (Auto) 0.3 % (0.0-4.0) Basophils (%) (Auto) 0.4 % (0.0-2.0) Neutrophils # (Auto) 18.6 TH/MM3 (1.8-7.7) Lymphocytes # (Auto) 1.0 TH/MM3 (1.0-4.8) Monocytes # (Auto) 1.5 TH/MM3 (0-0.9) Eosinophils # (Auto) 0.1 TH/MM3 (0-0.4) Basophils # (Auto) 0.1 TH/MM3 (0-0.2) CBC Comment DIFF FINAL Differential Comment Result Diagram: 03/01/17 0657 03/01/17 0632 Trisha Fleming MD Mar 01, 2017 09:58
[2017-03-01] MEDS ORDERED: ceFAZolin 2 GM PREMIX 50 ML IV SCH (10:00)
--- NOTE | 2017-03-01 12:18 | HHI.PR ---
Subjective Remarks in no acute distress. complaining of some pain to the left foot. T max 100.7. Objective Vitals Vital Signs Date Time Temp Pulse Resp B/P (MAP) Pulse Ox O2 Delivery O2 Flow Rate FiO2 03/01/17 08:00 98.8 76 16 97/56 (70) 97 03/01/17 03:01 99.6 95 20 99/55 95 03/01/17 01:35 100.1 94 18 98/54 96 02/28/17 21:55 100.7 18 107/50 02/28/17 21:30 99.7 89 18 98/52 02/28/17 20:00 99.7 89 18 98/57 (71) 97 02/28/17 16:00 99.4 89 17 102/55 (71) 93 I/O 02/28/17 02/28/17 02/28/17 03/01/17 03/01/17 03/01/17 06:59 14:59 22:59 06:59 14:59 22:59 Intake Total 523 ml 50 ml 960 ml 810 ml 50 ml Output Total 200 ml 700 ml 800 ml Balance 323 ml 50 ml 260 ml 10 ml 50 ml Intake Oral 240 ml 860 ml 240 ml IV Total 283 ml 50 ml 100 ml 50 ml Packed Cells 500 ml Blood Product IV Normal Saline Flush 70 ml Output Urine Total 200 ml 700 ml 800 ml # Voids 3 2 # Bowel Movements 0 Result Diagram: 03/01/17 0657 03/01/17 0632 Imaging Last Impressions Chest X-Ray 02/27/17 1407 Signed Impressions: Service Date/Time: Monday, February 27, 2017 14:23 - CONCLUSION: Some worsening of the left lower lobe infiltrate. Stable cardiomegaly. Pascual Roe Jr., MD Foot X-Ray 02/27/17 0000 Signed Impressions: Service Date/Time: Monday, February 27, 2017 14:20 - CONCLUSION: Soft tissue ulcer with subcutaneous emphysema. No evidence of osteomyelitis. Jase Sargent MD Aorta w/Runoff CTA 02/27/17 0000 Signed Impressions: Service Date/Time: Monday, February 27, 2017 17:08 - CONCLUSION: 1. Severe atherosclerotic disease of the abdominal aorta and its major branches and within both lower extremities. There is a moderate to severe stenosis of the midportion of the superficial femoral artery bilaterally but no vessel occlusion is identified. 2. Moderate size left pleural effusion. Justus Martinez MD Objective Remarks GENERAL: This is a well-nourished, well-developed patient, in no apparent distress. CARDIOVASCULAR: Regular rate and regular rhythm without murmurs, gallops, or rubs. RESPIRATORY: Clear to auscultation. Breath sounds equal bilaterally. No wheezes , rales, or rhonchi. GASTROINTESTINAL: Abdomen soft, non-tender, nondistended. Normal, active bowel sounds MUSCULOSKELETAL: left great toe is tender with some erythema NEURO: Alert & Oriented x4 to person, place, time, situation. Moves all ext x4 Medications and IVs Current Medications Vancomycin HCl 1000 mg/Sodium Chloride 250 ml @ 250 mls/hr ONCE ONCE IV Last administered on 02/27/17 16:42; Start 02/27/17 at 14:15; Stop 02/27/17 at 15:14 ; Status DC Piperacillin Sod/ Tazobactam Sod 50 ml @ 100 mls/hr ONCE ONCE IV Last administered on 02/27/17 14:56; Start 02/27/17 at 14:15; Stop 02/27/17 at 14:44 ; Status DC Morphine Sulfate (Morphine Inj) 4 mg ONCE ONCE IV PUSH Last administered on 14:56; Start 02/27/17 at 14:15; Stop 02/27/17 at 14:16; Status DC Ondansetron HCl (Zofran Inj) 4 mg ONCE ONCE IV PUSH Last administered on 14:53; Start 02/27/17 at 14:15; Stop 02/27/17 at 14:16; Status DC Dextrose (D50w (Vial) Inj) 50 ml UNSCH PRN IV HYPOGLYCEMIA-SEE COMMENTS; Start 02/27/17 at 16:45 Glucagon (Glucagon Inj) 1 mg UNSCH PRN OTHER HYPOGLYCEMIA-SEE COMMENTS; Start 02/27/17 at 16:45 Insulin Aspart (NovoLOG SUPPLEMENTAL SCALE) 1 ACHS SLIDING SCALE SQ Last administered on 03/01/17 05:46; Start 02/27/17 at 21:00 Piperacillin Sod/ Tazobactam Sod 50 ml @ 100 mls/hr Q6H IV Last administered on 03/01/17 08:20; Start 02/27/17 at 21:00 Pharmacy Profile Note 0 ml @ 0 mls/hr UNSCH OTHER ; Start 02/27/17 at 16:45 Aspirin (Aspirin Chew) 81 mg DAILY PO Last administered on 03/01/17 08:20; Start 02/28/17 at 09:00 Carvedilol (Coreg) 6.25 mg BID PO Last administered on 02/27/17 23:54; Start 02/27/17 at 21:00 Clonazepam (KlonoPIN) 0.5 mg BID PO Last administered on 03/01/17 08:18; Start 02/27/17 at 21:00 EZETIMIBE (Zetia) 10 mg HS PO Last administered on 02/28/17 20:32; Start 02/27 at 21:00 Ferrous Sulfate (Ferrous Sulfate) 325 mg BID PO Last administered on 03/01/17 08:18; Start 02/27/17 at 21:00 Furosemide (Lasix) 80 mg BID PO Last administered on 03/01/17 08:20; Start at 21:00 Gabapentin (Neurontin) 100 mg QID PO Last administered on 03/01/17 08:18; Start 02/27/17 at 18:00 Levothyroxine Sodium (Synthroid) 25 mcg DAILY@0600 PO Last administered on 03/01 04:28; Start 02/28/17 at 06:00 Losartan Potassium (Cozaar) 25 mg DAILY PO Last administered on 03/01/17 08:19 ; Start 02/28/17 at 09:00 Spironolactone (Aldactone) 25 mg BIDPC PO Last administered on 03/01/17 08:20 ; Start 02/27/17 at 18:00 Ticagrelor (Brilinta) 90 mg BID PO Last administered on 03/01/17 08:19; Start 02/27/17 at 21:00 Non-Formulary Medication 40 mg HS PO ; Start 02/27/17 at 21:00; Status UNV Acetaminophen/ Hydrocodone Bitart ([place] 5-325 Mg) 1 tab Q4H PRN PO PAIN 1-5 Last administered on 02/28/17 04:43; Start 02/27/17 at 19:00 Hydromorphone HCl (Dilaudid Pf Inj) 0.5 mg Q4H PRN IV PUSH PAIN 6-10 Last administered on 02/28/17 00:15; Start 02/27/17 at 19:00; Stop 02/28/17 at 09:51 ; Status DC Pravastatin Sodium (Pravachol) 80 mg HS PO Last administered on 02/27/17 23:53 ; Start 02/27/17 at 21:00; Stop 02/28/17 at 16:41; Status DC Vancomycin HCl 1000 mg/Sodium Chloride 250 ml @ 250 mls/hr ONCE ONCE IV Last administered on 02/28/17 00:12; Start 02/27/17 at 21:00; Stop 02/27/17 at 21:59 ; Status DC Vancomycin HCl 1750 mg/Sodium Chloride 517.5 ml @ 257.5 mls/ hr Q24H IV ; Start 02/28/17 at 21:00 Miscellaneous Information SPECIFIC LAB TO BE MARIO... ONCE ONCE .XX ; Start 03/02 at 20:45; Stop 03/02/17 at 20:46 Hydromorphone HCl (Dilaudid Pf Inj) 1 mg Q4H PRN IV PUSH BREAKTHROUGH PAIN; Start 02/28/17 at 11:00 Acetaminophen/ Hydrocodone Bitart ([place] 5-325 Mg) 2 tab Q4H PRN PO PAIN 6-10 Last administered on 03/01/17 10:41; Start 02/28/17 at 11:00 Atorvastatin Calcium (Lipitor) 80 mg DAILY PO Last administered on 03/01/17 08 :20; Start 03/01/17 at 09:00 Sodium Chloride 250 ml @ 15 mls/hr ONCE ONCE IV Last administered on 21:30; Start 02/28/17 at 17:30; Stop 03/01/17 at 10:09; Status DC Furosemide (Lasix Inj) 20 mg ONCE ONCE IV Last administered on 03/01/17 01:36 ; Start 02/28/17 at 17:30; Stop 02/28/17 at 17:32; Status DC Cefazolin Sodium/ Dextrose 50 ml @ 100 mls/hr IMITATION [employer] IV ; Start 03/01/17 at 10:00; Stop 03/04/17 at 09:59 A/P Assessment and Plan A/P ischemic left foot vascular surgery follow-up appreciated; plan for common femoral and external iliac endarterectomy followed by balloon angioplasty of the SFA tomorrow. continue with pain control. Cellulitis/Diabetic foot ulcer ID consult appreciated. Podiatry consult appreciated. Hold patient's previous home medications of ciprofloxacin and clindamycin Continue IV Zosyn and Vancomycin foot xray personally reviewed showing soft tissue ulcer with subcutaneous emphysema with no e/o osteomyelitis Leukocytosis secondary to above IV abx as above blood culture negative so far. CAD previous CABG recent NSTEMI status post cardiac catheterization stent implantation 12/23 History of V. tach History of atrial fibrillation status post ablation Hypertension, controlled Severe left ventricular systolic dysfunction Ischemic cardiomyopathy Patient to remain on Brilinta for one year and aspirin indefinitely. Continue both these medications. Continue patient on home dose of carvedilol 6.25 mg by mouth twice a day, losartan 25 mg daily, furosemide 80 mg by mouth twice a day and spironolactone 25 mg by mouth twice a day cardiology consult appreciated. Monitor for signs of fluid overload Type 2 DM Diabetic neuropathy Hold patient's metformin, glipizide and pioglitazone Accu-Cheks and insulin sliding scale Continue patient's home dose of gabapentin 100 mg by mouth 4 times a day Diabetic diet HLD Continue patient's home dose of simvastatin and Zetia Hyponatremia chronic am labs to monitor trend Anemia chronic - with some drop in H/H s/p PRBC transfusion- H/H now improved- will monitor Continue patient on home dose of ferrous sulfate 325 mg by mouth twice a day stool for blood pending. chronic renal insufficiency- with some increase in creatinine hold aldactone for now-will monitor closely- BMP in am. Hypothyroidism Continue patient on home dose of levothyroxine 25 g daily DVT prophylaxis; no SCD's due to PVD- no chemical prophylaxis for now for planned surgery. Akash Shea MD Mar 01, 2017 12:18
--- NOTE | 2017-03-01 12:25 | PD.CARD.PN ---
Subjective Subjective Remarks The patient feels better today. Less SOB and CP. Transfused two units PRBCs yesterday. (Radha Sweeney) Objective Medications Current Medications Medications (Trade) Dose Ordered Sig/Hugo Route Start Time Stop Time Status Last Admin (D50w (Vial) Inj) 50 ml UNSCH PRN IV 02/27/17 16:45 (Glucagon Inj) 1 mg UNSCH PRN OTHER 02/27/17 16:45 (NovoLOG SUPPLEMENTAL SCALE) 1 ACHS SLIDING SCALE SQ 02/27/17 21:00 03/01/17 11:26 Piperacillin Sod/ Tazobactam Sod 50 ml @ 100 mls/hr Q6H IV 02/27/17 21:00 03/01/17 08:20 Pharmacy Profile Note 0 ml @ 0 mls/hr UNSCH OTHER 02/27/17 16:45 (Aspirin Chew) 81 mg DAILY PO 02/28/17 09:00 03/01/17 08:20 (Coreg) 6.25 mg BID PO 02/27/17 21:00 02/27/17 23:54 (KlonoPIN) 0.5 mg BID PO 02/27/17 21:00 03/01/17 08:18 (Zetia) 10 mg HS PO 02/27/17 21:00 02/28/17 20:32 (Ferrous Sulfate) 325 mg BID PO 02/27/17 21:00 03/01/17 08:18 (Lasix) 80 mg BID PO 02/27/17 21:00 03/01/17 08:20 (Neurontin) 100 mg QID PO 02/27/17 18:00 03/01/17 08:18 (Synthroid) 25 mcg DAILY@0600 PO 02/28/17 06:00 03/01/17 04:28 (Cozaar) 25 mg DAILY PO 02/28/17 09:00 03/01/17 08:19 (Aldactone) 25 mg BIDPC PO 02/27/17 18:00 03/01/17 08:20 (Brilinta) 90 mg BID PO 02/27/17 21:00 03/01/17 08:19 ([place] 5-325 Mg) 1 tab Q4H PRN PO 02/27/17 19:00 02/28/17 04:43 Vancomycin HCl 1750 mg/Sodium Chloride 517.5 ml @ 257.5 mls/ hr Q24H IV 02/28/17 21:00 Miscellaneous Information SPECIFIC LAB TO BE MARIO... ONCE ONCE .XX 03/02/17 20:45 03/02/17 20:46 (Dilaudid Pf Inj) 1 mg Q4H PRN IV PUSH 02/28/17 11:00 ([place] 5-325 Mg) 2 tab Q4H PRN PO 02/28/17 11:00 03/01/17 10:41 (Lipitor) 80 mg DAILY PO 03/01/17 09:00 03/01/17 08:20 Cefazolin Sodium/ Dextrose 50 ml @ 100 mls/hr CUSTOMER SERVICE ATTENDANT IV 03/01/17 10:00 03/04/17 09:59 Vital Signs / I&O Vital Signs Date Time Temp Pulse Resp B/P (MAP) Pulse Ox O2 Delivery O2 Flow Rate FiO2 03/01/17 08:00 98.8 76 16 97/56 (70) 97 03/01/17 03:01 99.6 95 20 99/55 95 03/01/17 01:35 100.1 94 18 98/54 96 02/28/17 21:55 100.7 18 107/50 02/28/17 21:30 99.7 89 18 98/52 02/28/17 20:00 99.7 89 18 98/57 (71) 97 02/28/17 16:00 99.4 89 17 102/55 (71) 93 I/O 02/28/17 02/28/17 02/28/17 03/01/17 03/01/17 03/01/17 06:59 14:59 22:59 06:59 14:59 22:59 Intake Total 523 ml 50 ml 960 ml 810 ml 50 ml Output Total 200 ml 700 ml 800 ml Balance 323 ml 50 ml 260 ml 10 ml 50 ml Intake Oral 240 ml 860 ml 240 ml IV Total 283 ml 50 ml 100 ml 50 ml Packed Cells 500 ml Blood Product IV Normal Saline Flush 70 ml Output Urine Total 200 ml 700 ml 800 ml # Voids 3 2 # Bowel Movements 0 Physical Exam GENERAL: Middle age male sitting up in the chair, looks better today SKIN: Warm and dry. HEAD: Normocephalic. EYES: No scleral icterus. No injection or drainage. NECK: Supple, trachea midline. CARDIOVASCULAR: Regular rate and rhythm without murmurs, gallops, or rubs. RESPIRATORY: Breath sounds equal bilaterally. No accessory muscle use. GASTROINTESTINAL: Abdomen soft, non-tender, nondistended. MUSCULOSKELETAL: Ischemic left hallux with ulcer of plantar surface proximal to left hallux BACK: Nontender without obvious deformity. Laboratory Laboratory Tests Test 02/28/17 19:00 03/01/17 06:32 03/01/17 06:57 Hemoglobin 6.8 GM/DL 8.3 GM/DL Hematocrit 19.0 % 23.9 % Iron Level 11 MCG/DL Total Iron Binding Capacity 294 MCG/DL Percent Iron Saturation 3.7 % Ferritin 145 NG/ML Blood Urea Nitrogen 32 MG/DL Creatinine 1.99 MG/DL Random Glucose 171 MG/DL Calcium Level 8.5 MG/DL Sodium Level 126 MEQ/L Potassium Level 3.7 MEQ/L Chloride Level 95 MEQ/L Carbon Dioxide Level 17.5 MEQ/L Anion Gap 14 MEQ/L Estimat Glomerular Filtration Rate 34 ML/MIN Triglycerides Level 80 MG/DL Cholesterol Level 86 MG/DL LDL Cholesterol 50 MG/DL HDL Cholesterol 19.9 MG/DL Cholesterol/HDL Ratio 4.32 RATIO White Blood Count 21.2 TH/MM3 Red Blood Count 2.91 MIL/MM3 Mean Corpuscular Volume 82.0 FL Mean Corpuscular Hemoglobin 28.4 PG Mean Corpuscular Hemoglobin Concent 34.6 % Red Cell Distribution Width 16.5 % Platelet Count 332 TH/MM3 Mean Platelet Volume 7.3 FL Neutrophils (%) (Auto) 87.7 % Lymphocytes (%) (Auto) 4.5 % Monocytes (%) (Auto) 7.1 % Eosinophils (%) (Auto) 0.3 % Basophils (%) (Auto) 0.4 % Neutrophils # (Auto) 18.6 TH/MM3 Lymphocytes # (Auto) 1.0 TH/MM3 Monocytes # (Auto) 1.5 TH/MM3 Eosinophils # (Auto) 0.1 TH/MM3 Basophils # (Auto) 0.1 TH/MM3 CBC Comment DIFF FINAL Differential Comment Imaging Last 72 hours Impressions Chest X-Ray 02/27/17 6418 Signed Impressions: Service Date/Time: Monday, February 27, 2017 14:23 - CONCLUSION: Some worsening of the left lower lobe infiltrate. Stable cardiomegaly. Pascual Roe Jr., MD Foot X-Ray 02/27/17 0000 Signed Impressions: Service Date/Time: Monday, February 27, 2017 14:20 - CONCLUSION: Soft tissue ulcer with subcutaneous emphysema. No evidence of osteomyelitis. Jase Sargent MD Aorta w/Runoff CTA 02/27/17 0000 Signed Impressions: Service Date/Time: Monday, February 27, 2017 17:08 - CONCLUSION: 1. Severe atherosclerotic disease of the abdominal aorta and its major branches and within both lower extremities. There is a moderate to severe stenosis of the midportion of the superficial femoral artery bilaterally but no vessel occlusion is identified. 2. Moderate size left pleural effusion. Justus Martinez MD (Radha Sweeney) Assessment and Plan Assessment and Plan Severe PAD with ischemic left hallux ASHD s/p recent coronary stent 01/05/2017 Moderate carotid artery stenosis History of atrial fibrillation s/p atrial fibrillation ablation. he has not been on Eliquis. Last office device check 12/20/2016. No identified atrial fibrillation on device check Symptomatic anemia DM HLD LDL 50 Obesity TERESA PLAN: Transfuse 2 more units RBC with Lasix IV 20 mg between each unit. Hbg goal > 10. Pending occult stool Telemetry monitoring Agree with continuing ASA and Brilinta with additional heparin during vascular procedure. Patient seen and evaluated by Dr Steele who completed face to face encounter, completed physical exam and participated in evaluation and management (Radha Sweeney) Assessment and Plan The exam, history, and the medical decision-making described in the above note were completed with the assistance of the mid-level provider. I reviewed and agree with the findings presented. I attest that I had a [id number] encounter with the patient on the same day, and personally performed and documented my assessment and findings in the medical record. For surgery today or tomorrow, Dr Hankins will cover since I am OOT (Diana Steele MD) Radha Sweeney Mar 01, 2017 12:25 Diana Steele MD Mar 01, 2017 13:51
[2017-03-01] MEDS ORDERED: SODIUM CHLOR 0.9% 250 ML INJ 250 ML IV ONE (12:30)
[2017-03-01] MEDS ORDERED: FUROSEMIDE 20 MG/2 ML VIAL IV PRN (12:30)
[2017-03-01] MEDS: VANCOMYCIN INJ 1,750 MG in SODIUM CHLORID 0.9% 500 ML INJ 500 ML IV SCH (16:26)
--- NOTE | 2017-03-01 19:58 | HHI.IDPN ---
Subjective Subjective Remarks states he feels better tolerates abx OK nop cough has worsning LLL infiltrate on CXR Antibiotics vanco zoyn Allergies: Coded Allergies: cyclobenzaprine (Unverified Allergy, Severe, Flushing, 02/27/17) REDNESS lisinopril (Unverified Allergy, Unknown, Swelling, 02/27/17) ANGIOEDEMA Objective . Vital Signs Date Time Temp Pulse Resp B/P (MAP) Pulse Ox O2 Delivery O2 Flow Rate FiO2 03/01/17 16:00 97.9 81 17 98/62 (74) 94 03/01/17 13:15 97.2 85 17 97/52 95 03/01/17 12:00 97.2 85 17 97/52 (67) 95 03/01/17 08:00 98.8 76 16 97/56 (70) 97 03/01/17 03:01 99.6 95 20 99/55 95 03/01/17 01:35 100.1 94 18 98/54 96 02/28/17 21:55 100.7 18 107/50 02/28/17 21:30 99.7 89 18 98/52 02/28/17 20:00 99.7 89 18 98/57 (71) 97 03/01/17 03/01/17 03/02/17 14:59 22:59 06:59 Intake Total 50 ml 440 ml Output Total 700 ml Balance 50 ml -260 ml Intake Oral 440 ml IV Total 50 ml Output Urine Total 700 ml # Bowel Movements 0 . Laboratory Tests Test 02/28/17 06:25 02/28/17 19:00 03/01/17 06:57 White Blood Count 17.1 TH/MM3 21.2 TH/MM3 Red Blood Count 2.60 MIL/MM3 2.91 MIL/MM3 Hemoglobin 7.3 GM/DL 6.8 GM/DL 8.3 GM/DL Hematocrit 21.6 % 19.0 % 23.9 % Mean Corpuscular Volume 83.2 FL 82.0 FL Mean Corpuscular Hemoglobin 28.2 PG 28.4 PG Mean Corpuscular Hemoglobin Concent 33.9 % 34.6 % Red Cell Distribution Width 16.7 % 16.5 % Platelet Count 352 TH/MM3 332 TH/MM3 Mean Platelet Volume 7.3 FL 7.3 FL Neutrophils (%) (Auto) 86.6 % 87.7 % Lymphocytes (%) (Auto) 4.9 % 4.5 % Monocytes (%) (Auto) 7.9 % 7.1 % Eosinophils (%) (Auto) 0.5 % 0.3 % Basophils (%) (Auto) 0.1 % 0.4 % Neutrophils # (Auto) 14.8 TH/MM3 18.6 TH/MM3 Lymphocytes # (Auto) 0.8 TH/MM3 1.0 TH/MM3 Monocytes # (Auto) 1.4 TH/MM3 1.5 TH/MM3 Eosinophils # (Auto) 0.1 TH/MM3 0.1 TH/MM3 Basophils # (Auto) 0.0 TH/MM3 0.1 TH/MM3 CBC Comment DIFF FINAL DIFF FINAL Differential Comment Laboratory Tests Test 02/28/17 19:00 03/01/17 06:32 Iron Level 11 MCG/DL Total Iron Binding Capacity 294 MCG/DL Percent Iron Saturation 3.7 % Ferritin 145 NG/ML Blood Urea Nitrogen 32 MG/DL Creatinine 1.99 MG/DL Random Glucose 171 MG/DL Calcium Level 8.5 MG/DL Sodium Level 126 MEQ/L Potassium Level 3.7 MEQ/L Chloride Level 95 MEQ/L Carbon Dioxide Level 17.5 MEQ/L Anion Gap 14 MEQ/L Estimat Glomerular Filtration Rate 34 ML/MIN Triglycerides Level 80 MG/DL Cholesterol Level 86 MG/DL LDL Cholesterol 50 MG/DL HDL Cholesterol 19.9 MG/DL Cholesterol/HDL Ratio 4.32 RATIO Microbiology Date/Time Source Procedure Growth Status 02/27/17 14:45 Blood Peripheral Aerobic Blood Culture - Preliminary NO GROWTH IN 2 DAYS Resulted 02/27/17 14:45 Blood Peripheral Anaerobic Blood Culture - Preliminary NO GROWTH IN 2 DAYS Resulted 02/27/17 14:40 Blood Peripheral Aerobic Blood Culture - Preliminary NO GROWTH IN 2 DAYS Resulted 02/27/17 14:40 Blood Peripheral Anaerobic Blood Culture - Preliminary NO GROWTH IN 2 DAYS Resulted Imaging Last Impressions Chest X-Ray 02/27/17 1407 Signed Impressions: Service Date/Time: Monday, February 27, 2017 14:23 - CONCLUSION: Some worsening of the left lower lobe infiltrate. Stable cardiomegaly. Pascual Roe Jr., MD Foot X-Ray 02/27/17 0000 Signed Impressions: Service Date/Time: Monday, February 27, 2017 14:20 - CONCLUSION: Soft tissue ulcer with subcutaneous emphysema. No evidence of osteomyelitis. Jase Sargent MD Aorta w/Runoff CTA 02/27/17 0000 Signed Impressions: Service Date/Time: Monday, February 27, 2017 17:08 - CONCLUSION: 1. Severe atherosclerotic disease of the abdominal aorta and its major branches and within both lower extremities. There is a moderate to severe stenosis of the midportion of the superficial femoral artery bilaterally but no vessel occlusion is identified. 2. Moderate size left pleural effusion. Justus Martinez MD Physical Exam CONSTITUTIONAL/GENERAL: This is an obese elderly male patient, in no apparent distress. TUBES/LINES/DRAINS: SKIN: No jaundice, rashes, or lesions. Skin temperature appropriate. Not diaphoretic. CARDIOVASCULAR: Regular rate and rhythm without murmurs, gallops, or rubs. No JVD. Peripheral pulses symmetric. RESPIRATORY/CHEST: Symmetric, unlabored respirations. Clear to auscultation. Breath sounds equal bilaterally. No wheezes, rales, or rhonchi. GASTROINTESTINAL: Abdomen soft, non-tender, nondistended. No hepato-splenomegaly , or palpable masses. No guarding. Bowel sounds present. MUSCULOSKELETAL: Extremities without clubbing, No joint tenderness or effusion noted. No calf tenderness. No mottling or clubbing. LLE with prominent edema, erythem aextenditng to forefoot - looks worse today L hallux exam cw wet gangrene: toe is swollen; dark purple color, with foul odor Neuropahtic ulcer noted with necrotic bed @ the base of L hallux NEUROLOGICAL: Awake and alert. Motor and sensory grossly within normal limits. Follows commands. Clear speech. Moves all extremities. PSYCHIATRIC: calm and cooperative Assessment & Plan Remarks PVD, severe disease L hallux DFI, L hallux wet gangrene with ascending cellulitis - severe limb threatening, Multiple med problems including DM Worsnign sepsis : leukocytosis now > 20, BP borderline and worsening renal fnx Suspected LLL PNA - cont vancomycin - cont zosyn agree with plans for revascularisation with subsequent amputatiion - ck sputum clx - add Aby Patel MD Mar 01, 2017 19:58
[2017-03-01] MEDS ORDERED: AZITHROMYCIN 250 MG TAB PO ONE (20:00)
[2017-03-01] MEDS: EZETIMIBE 10 MG TAB PO SCH (20:06)
[2017-03-01] MEDS ORDERED: FUROSEMIDE 20 MG/2 ML VIAL IV PUSH PRN (20:30)
[2017-03-01] MEDS: FUROSEMIDE 40 MG TAB PO ONE ×2 (20:49→21:00)
[2017-03-02] MEDS ORDERED: LACTATED RINGER'S 1000 ML IV PRN (00:30)
[2017-03-02] MEDS ORDERED: POVIDONE IODINE 5% (ANTISEPSIS KIT) 4 APPLICATIONS EACH NARE PRN (00:30)
[2017-03-02] MEDS ORDERED: CHLORHEXIDINE GLUCONATE 2 % 1 PACK (2 CLOTHS) TOPICAL PRN (00:30)
[2017-03-02 01:25] VITALS: BP_SYST 133; BP_DIAS 60; BP_DIAS 62; PULSE 92; RESP 18; TEMP 98.1; O2SAT 95
[2017-03-02] MEDS: PIPERACIL-TAZO 3.375 GM PREMIX 50 ML IV SCH ×4 (03:09→21:26)
[2017-03-02] MEDS: LEVOTHYROXINE SODIUM 25 MCG TAB PO SCH (03:09)
[2017-03-02] MEDS: ACETAMINOPHEN/HYDROcodone 325 MG/5 MG TAB PO PRN ×2 (03:18→19:36)
[2017-03-02 04:51] LABS: AUTOMATED NEUTROPHIL # 19.6 TH/MM3 (1.8-7.7); BASOPHIL # 0.1 TH/MM3 (0-0.2); BASOPHIL % 0.5 % (0.0-2.0); EOSINOPHIL # 0.1 TH/MM3 (0-0.4); EOSINOPHIL % 0.5 % (0.0-4.0); HEMATOCRIT 28.5 % (39.0-51.0); HEMO FLAGS DIFF FINAL; LYMPH % 3.2 % (9.0-44.0); LYMPHOCYTE # 0.7 TH/MM3 (1.0-4.8); MEAN CELL VOLUME 82.2 FL (80.0-100.0); MEAN CORPUSCULAR HEMOGLOBIN 27.8 PG (27.0-34.0); MEAN CORPUSCULAR HGB CONC 33.8 % (32.0-36.0); MONO % 6.5 % (0.0-8.0); NEUT % 89.3 % (16.0-70.0); PLATELET COUNT 363 TH/MM3 (150-450); RED BLOOD COUNT 3.47 MIL/MM3 (4.50-5.90); RED CELL DISTRIBUTION WIDTH 16.7 % (11.6-17.2)
[2017-03-02 05:15] LABS: BICARBONATE 20.5 MEQ/L (21.0-32.0); POTASSIUM 3.8 MEQ/L (3.5-5.1)
[2017-03-02] MEDS: INSULIN ASPART SUPPLEMENTAL SCALE SQ SCH ×4 (05:40→21:00)
[2017-03-02 08:00] VITALS: BP 130/66; PULSE 90; RESP 18; TEMP 98; O2SAT 95
--- NOTE | 2017-03-02 08:06 | HHI.PR ---
Subjective Remarks resting comfortably with no distress. has some pain to the left foot. no fever today. no other complaints. Objective Vitals Vital Signs Date Time Temp Pulse Resp B/P (MAP) Pulse Ox O2 Delivery O2 Flow Rate FiO2 03/02/17 01:25 98.1 92 18 133/62 95 03/02/17 01:25 98.1 92 18 133/60 (84) 95 03/01/17 22:00 98.0 87 18 121/57 03/01/17 22:00 98.0 87 18 121/57 03/01/17 20:36 96.7 80 18 118/64 (82) 96 03/01/17 16:00 97.9 81 17 98/62 (74) 94 03/01/17 13:15 97.2 85 17 97/52 95 03/01/17 12:00 97.2 85 17 97/52 (67) 95 03/01/17 08:00 98.8 76 16 97/56 (70) 97 I/O 03/01/17 03/01/17 03/01/17 03/02/17 03/02/17 03/02/17 07:00 15:00 23:00 07:00 15:00 23:00 Intake Total 810 ml 50 ml 1007 ml 330 ml Output Total 800 ml 700 ml 2800 ml Balance 10 ml 50 ml 307 ml -2470 ml Intake Oral 240 ml 440 ml IV Total 50 ml 567 ml 50 ml Packed Cells 500 ml 250 ml Blood Product IV Normal Saline Flush 70 ml 30 ml Output Urine Total 800 ml 700 ml 2800 ml # Voids 2 # Bowel Movements 0 0 Result Diagram: 03/02/17 0408 03/02/17 0408 Imaging Last Impressions Chest X-Ray 02/27/17 1407 Signed Impressions: Service Date/Time: Monday, February 27, 2017 14:23 - CONCLUSION: Some worsening of the left lower lobe infiltrate. Stable cardiomegaly. Pascual Roe Jr., MD Foot X-Ray 02/27/17 0000 Signed Impressions: Service Date/Time: Monday, February 27, 2017 14:20 - CONCLUSION: Soft tissue ulcer with subcutaneous emphysema. No evidence of osteomyelitis. Jase Sargent MD Aorta w/Runoff CTA 02/27/17 0000 Signed Impressions: Service Date/Time: Monday, February 27, 2017 17:08 - CONCLUSION: 1. Severe atherosclerotic disease of the abdominal aorta and its major branches and within both lower extremities. There is a moderate to severe stenosis of the midportion of the superficial femoral artery bilaterally but no vessel occlusion is identified. 2. Moderate size left pleural effusion. Justus Martinez MD Objective Remarks GENERAL: This is a well-nourished, well-developed patient, in no apparent distress. CARDIOVASCULAR: Regular rate and regular rhythm without murmurs, gallops, or rubs. RESPIRATORY: Clear to auscultation. Breath sounds equal bilaterally. No wheezes , rales, or rhonchi. GASTROINTESTINAL: Abdomen soft, non-tender, nondistended. Normal, active bowel sounds MUSCULOSKELETAL: gangrene left toe with some erythema over the left foot NEURO: Alert & Oriented x4 to person, place, time, situation. Moves all ext x4 Medications and IVs Current Medications Vancomycin HCl 1000 mg/Sodium Chloride 250 ml @ 250 mls/hr ONCE ONCE IV Last administered on 02/27/17 16:42; Start 02/27/17 at 14:15; Stop 02/27/17 at 15:14 ; Status DC Piperacillin Sod/ Tazobactam Sod 50 ml @ 100 mls/hr ONCE ONCE IV Last administered on 02/27/17 14:56; Start 02/27/17 at 14:15; Stop 02/27/17 at 14:44 ; Status DC Morphine Sulfate (Morphine Inj) 4 mg ONCE ONCE IV PUSH Last administered on 14:56; Start 02/27/17 at 14:15; Stop 02/27/17 at 14:16; Status DC Ondansetron HCl (Zofran Inj) 4 mg ONCE ONCE IV PUSH Last administered on 14:53; Start 02/27/17 at 14:15; Stop 02/27/17 at 14:16; Status DC Dextrose (D50w (Vial) Inj) 50 ml UNSCH PRN IV HYPOGLYCEMIA-SEE COMMENTS; Start 02/27/17 at 16:45 Glucagon (Glucagon Inj) 1 mg UNSCH PRN OTHER HYPOGLYCEMIA-SEE COMMENTS; Start 02/27/17 at 16:45 Insulin Aspart (NovoLOG SUPPLEMENTAL SCALE) 1 ACHS SLIDING SCALE SQ Last administered on 03/02/17 05:40; Start 02/27/17 at 21:00 Piperacillin Sod/ Tazobactam Sod 50 ml @ 100 mls/hr Q6H IV Last administered on 03/02/17 03:09; Start 02/27/17 at 21:00 Pharmacy Profile Note 0 ml @ 0 mls/hr UNSCH OTHER ; Start 02/27/17 at 16:45 Aspirin (Aspirin Chew) 81 mg DAILY PO Last administered on 03/01/17 08:20; Start 02/28/17 at 09:00 Carvedilol (Coreg) 6.25 mg BID PO Last administered on 02/27/17 23:54; Start 02/27/17 at 21:00 Clonazepam (KlonoPIN) 0.5 mg BID PO Last administered on 03/01/17 20:05; Start 02/27/17 at 21:00 EZETIMIBE (Zetia) 10 mg HS PO Last administered on 03/01/17 20:06; Start 02/27 at 21:00 Ferrous Sulfate (Ferrous Sulfate) 325 mg BID PO Last administered on 03/01/17 20:05; Start 02/27/17 at 21:00 Furosemide (Lasix) 80 mg BID PO Last administered on 03/01/17 20:05; Start at 21:00; Stop 03/01/17 at 20:26; Status DC Gabapentin (Neurontin) 100 mg QID PO Last administered on 03/01/17 20:06; Start 02/27/17 at 18:00 Levothyroxine Sodium (Synthroid) 25 mcg DAILY@0600 PO Last administered on 03/01 04:28; Start 02/28/17 at 06:00 Losartan Potassium (Cozaar) 25 mg DAILY PO Last administered on 03/01/17 08:19 ; Start 02/28/17 at 09:00 Spironolactone (Aldactone) 25 mg BIDPC PO Last administered on 03/01/17 08:20 ; Start 02/27/17 at 18:00; Status Future hold Ticagrelor (Brilinta) 90 mg BID PO Last administered on 03/01/17 20:04; Start 02/27/17 at 21:00 Non-Formulary Medication 40 mg HS PO ; Start 02/27/17 at 21:00; Status UNV Acetaminophen/ Hydrocodone Bitart ([place] 5-325 Mg) 1 tab Q4H PRN PO PAIN 1-5 Last administered on 02/28/17 04:43; Start 02/27/17 at 19:00 Hydromorphone HCl (Dilaudid Pf Inj) 0.5 mg Q4H PRN IV PUSH PAIN 6-10 Last administered on 02/28/17 00:15; Start 02/27/17 at 19:00; Stop 02/28/17 at 09:51 ; Status DC Pravastatin Sodium (Pravachol) 80 mg HS PO Last administered on 02/27/17 23:53 ; Start 02/27/17 at 21:00; Stop 02/28/17 at 16:41; Status DC Vancomycin HCl 1000 mg/Sodium Chloride 250 ml @ 250 mls/hr ONCE ONCE IV Last administered on 02/28/17 00:12; Start 02/27/17 at 21:00; Stop 02/27/17 at 21:59 ; Status DC Vancomycin HCl 1750 mg/Sodium Chloride 517.5 ml @ 257.5 mls/ hr Q24H IV ; Start 02/28/17 at 21:00; Stop 03/01/17 at 13:37; Status DC Miscellaneous Information SPECIFIC LAB TO BE MARIO... ONCE ONCE .XX ; Start 03/02 at 20:45; Stop 03/02/17 at 20:46; Status Cancel Hydromorphone HCl (Dilaudid Pf Inj) 1 mg Q4H PRN IV PUSH BREAKTHROUGH PAIN; Start 02/28/17 at 11:00 Acetaminophen/ Hydrocodone Bitart ([place] 5-325 Mg) 2 tab Q4H PRN PO PAIN 6-10 Last administered on 03/02/17 03:18; Start 02/28/17 at 11:00 Atorvastatin Calcium (Lipitor) 80 mg DAILY PO Last administered on 03/01/17 08 :20; Start 03/01/17 at 09:00 Sodium Chloride 250 ml @ 15 mls/hr ONCE ONCE IV Last administered on 21:30; Start 02/28/17 at 17:30; Stop 03/01/17 at 10:09; Status DC Furosemide (Lasix Inj) 20 mg ONCE ONCE IV Last administered on 03/01/17 01:36 ; Start 02/28/17 at 17:30; Stop 02/28/17 at 17:32; Status DC Cefazolin Sodium/ Dextrose 50 ml @ 100 mls/hr MECHANICAL EQUIPMENT SALES ENGINEER IV ; Start 03/01/17 at 10:00; Stop 03/04/17 at 09:59 Sodium Chloride 250 ml @ 15 mls/hr ONCE ONCE IV Last administered on 13:20; Start 03/01/17 at 12:30; Stop 03/02/17 at 05:09; Status DC Furosemide (Lasix Inj) 20 mg UNSCH X1 PRN IV AFTER 1ST UNIT OF BLOOD Last administered on 03/01/17 17:13; Start 03/01/17 at 12:30; Stop 03/01/17 at 23:59 ; Status DC Vancomycin HCl 1750 mg/Sodium Chloride 517.5 ml @ 257.5 mls/ hr Q24H IV Last administered on 03/01/17 16:26; Start 03/01/17 at 16:00 Miscellaneous Information SPECIFIC LAB TO BE DRAWN:VANCOMYCIN TROUGH DATE TO... ONCE ONCE .XX ; Start 03/03/17 at 15:45; Stop 03/03/17 at 15:46 Azithromycin (Zithromax) 500 mg ONCE ONCE PO Last administered on 03/01/17 20 :07; Start 03/01/17 at 20:00; Stop 03/01/17 at 20:02; Status DC Azithromycin (Zithromax) 250 mg DAILY PO ; Start 03/02/17 at 09:00 Furosemide (Lasix Inj) 20 mg UNSCH X1 PRN IV PUSH AFTER 2ND UNIT OF PRBC Last administered on 03/02/17 01:09; Start 03/01/17 at 20:30; Stop 03/02/17 at 16:00 Furosemide (Lasix) 40 mg ONCE ONCE PO Last administered on 03/01/17 21:00; Start 03/01/17 at 21:00; Stop 03/01/17 at 21:01; Status DC Furosemide (Lasix) 80 mg BID PO ; Start 03/02/17 at 09:00 Lactated Ringer's 1,000 ml @ 30 mls/hr Q24H PRN IV SEE LABEL COMMENTS; Start at 00:30; Stop 8/28/17 at 00:29 Povidone Iodine (Betadine 5% Antisepsis Kit) 1 applic MECH[employer]ICAL EQUIPMENT SALES ENGINEER PRN EACH NARE SEE LABEL COMMENTS; Start 03/02/17 at 00:30; Stop 03/05/17 at 00:29 Chlorhexidine Gluconate (Chlorhexidine 2% Cloth) 3 pack MECH[employer]ICAL EQUIPMENT SALES ENGINEER PRN TOPICAL SEE LABEL COMMENTS; Start 03/02/17 at 00:30; Stop 03/05/17 at 00:29 A/P Assessment and Plan A/P ischemic left foot with gangrene of the left great toe vascular surgery follow-up appreciated; plan for common femoral and external iliac endarterectomy followed by balloon angioplasty of the SFA today. continue with pain control. sepsis due to Cellulitis/Diabetic foot ulcer Continue IV Zosyn and Vancomycin blood cultures negative so far ID and podiatry following. CAD with ischemic cardiomyopathy previous CABG recent NSTEMI status post cardiac catheterization stent implantation 12/23 History of V. tach History of atrial fibrillation status post ablation Hypertension Severe left ventricular systolic dysfunction Patient to remain on Brilinta for one year and aspirin indefinitely. Continue both these medications. Continue coreg and losartan- continue lasix; will decrease the dose with close monitoring of the renal function. cardiology following. Monitor for signs of fluid overload acute kidney injury continue to hold aldactone- will decrease the dose of lasix monitor I/O and renal function closely will consider nephrology consult if the renal function doesn't improve Type 2 DM Diabetic neuropathy Hold patient's metformin, glipizide and pioglitazone Accu-Cheks and insulin sliding scale will consider adding levemir Continue patient's home dose of gabapentin 100 mg by mouth 4 times a day Diabetic diet HLD Continue patient's home dose of simvastatin and Zetia Hyponatremia-improved. chronic will monitor Anemia chronic - with some drop in H/H s/p PRBC transfusion- H/H now improved- will monitor Continue patient on home dose of ferrous sulfate 325 mg by mouth twice a day stool for blood pending. Hypothyroidism Continue patient on home dose of levothyroxine 25 g daily DVT prophylaxis; no SCD's due to PVD- no chemical prophylaxis for now for planned surgery. Akash Shea MD Mar 02, 2017 08:06
[2017-03-02] MEDS: CARVEDILOL 6.25 MG TAB PO SCH ×2 (08:28→21:26)
[2017-03-02] MEDS: clonazePAM 0.5 MG TAB PO SCH ×2 (09:00→21:26)
[2017-03-02] MEDS: LOSARTAN 25 MG TAB PO SCH (09:00)
[2017-03-02] MEDS: AZITHROMYCIN 250 MG TAB PO SCH (09:00)
[2017-03-02] MEDS ORDERED: FUROSEMIDE 80 MG TAB PO SCH (09:00)
[2017-03-02] MEDS: ATORVASTATIN 80 MG TAB PO SCH (09:00)
[2017-03-02] MEDS: ASPIRIN 81 MG CHEW TAB PO SCH (09:00)
[2017-03-02] MEDS: GABAPENTIN 100 MG CAP PO SCH ×4 (09:00→21:26)
[2017-03-02] MEDS: FERROUS SULFATE 325 MG (65 MG ELEMENTAL IRON) TAB PO SCH ×2 (09:00→21:26)
[2017-03-02] MEDS: TICAGRELOR 90 MG TAB PO SCH ×2 (09:00→22:24)
[2017-03-02] MEDS ORDERED: HEPARIN SODIUM - IV 10,000 UNITS/10 ML VIAL ONE ×2 (09:53→12:48)
[2017-03-02] MEDS ORDERED: ACETAMINOPHEN 1000 MG/100 ML 100 ML IV ONE (09:56)
[2017-03-02] MEDS ORDERED: FAMOTIDINE 20 MG/2 ML VIAL ONE (09:57)
[2017-03-02] MEDS ORDERED: MIDAZOLAM HCL 2 MG/2 ML VIAL ONE (09:57)
[2017-03-02] MEDS ORDERED: SUGAMMADEX SODIUM 200 MG/2 ML VIAL IV PUSH ONE ×2 (09:57)
[2017-03-02] MEDS ORDERED: fentaNYL CITRATE 250 MCG/5 ML AMP ONE (10:00)
[2017-03-02] MEDS ORDERED: BUPIVACAINE/EPINEPHRINE 0.5% PF 30 ML VIAL ONE (11:51)
[2017-03-02] MEDS ORDERED: PHENYLEPHRINE HCL 10 MG/ML VIAL IV ONE (12:00)
[2017-03-02] MEDS ORDERED: PROPOFOL 200 MG/20 ML AMP IV ONE (12:00)
[2017-03-02] MEDS ORDERED: SODIUM CHLORID 0.9% 500 ML INJ 500 ML IV ONE (12:00)
[2017-03-02] MEDS ORDERED: NORMOSOL R INJ 1,000 ML IV ONE (12:00)
[2017-03-02] MEDS ORDERED: LACTATED RINGER'S 1000 ML INJ 2,000 ML IV ONE (12:00)
[2017-03-02] MEDS ORDERED: SODIUM CHLOR 0.9% 250 ML INJ 500 ML IV ONE (12:00)
[2017-03-02] MEDS ORDERED: ONDANSETRON HCL 4 MG/2 ML VIAL IV PUSH ONE (12:00)
[2017-03-02] MEDS ORDERED: PHENYLEPH/NS 1000 MCG/10 ML SYR IV ONE (12:00)
[2017-03-02] MEDS ORDERED: IOHEXOL IV ONE (15:21)
[2017-03-02] MEDS ORDERED: *morphine SULFATE 8 MG/ML PERIprocedure ONLY ONE ×2 (15:46→16:26)
[2017-03-02] MEDS ORDERED: *RESP: ALBUTEROL 2.5 MG/3 ML NEB (PRN) PERIprocedural Use ONLY NEB ONE (15:47)
[2017-03-02] MEDS ORDERED: PHENYLEPHRINE HCL 10 MG/ML VIAL ONE (15:52)
[2017-03-02] MEDS: VANCOMYCIN INJ 1,750 MG in SODIUM CHLORID 0.9% 500 ML INJ 500 ML IV SCH (16:00)
[2017-03-02] MEDS ORDERED: BACITRACIN TOP OINT 15 GM TUBE ONE (16:01)
[2017-03-02 16:26] LABS: HEMATOCRIT 31.3 % (39.0-51.0); REVIEW FLAG FINAL
[2017-03-02] MEDS ORDERED: HALOPERIDOL LACTATE 5 MG/ML AMP ONE (16:40)
[2017-03-02] MEDS ORDERED: HALOPERIDOL LACTATE 5 MG/ML AMP IV PUSH ONE (17:00)
[2017-03-02 18:00] VITALS: BP 118/75; PULSE 68; RESP 14; TEMP 98.5; O2SAT 98
--- NOTE | 2017-03-02 19:55 | PD.CARD.PN ---
Subjective Subjective Remarks No CP or SOB, tolerated surgery well, in PACU Objective Medications Current Medications Medications (Trade) Dose Ordered Sig/Hugo Route Start Time Stop Time Status Last Admin (D50w (Vial) Inj) 50 ml UNSCH PRN IV 02/27/17 16:45 (Glucagon Inj) 1 mg UNSCH PRN OTHER 02/27/17 16:45 (NovoLOG SUPPLEMENTAL SCALE) 1 ACHS SLIDING SCALE SQ 02/27/17 21:00 03/02/17 05:40 Piperacillin Sod/ Tazobactam Sod 50 ml @ 100 mls/hr Q6H IV 02/27/17 21:00 03/02/17 14:15 Pharmacy Profile Note 0 ml @ 0 mls/hr UNSCH OTHER 02/27/17 16:45 (Aspirin Chew) 81 mg DAILY PO 02/28/17 09:00 03/01/17 08:20 (Coreg) 6.25 mg BID PO 02/27/17 21:00 03/02/17 08:28 (KlonoPIN) 0.5 mg BID PO 02/27/17 21:00 03/01/17 20:05 (Zetia) 10 mg HS PO 02/27/17 21:00 03/01/17 20:06 (Ferrous Sulfate) 325 mg BID PO 02/27/17 21:00 03/01/17 20:05 (Neurontin) 100 mg QID PO 02/27/17 18:00 03/01/17 20:06 (Synthroid) 25 mcg DAILY@0600 PO 02/28/17 06:00 03/01/17 04:28 (Cozaar) 25 mg DAILY PO 02/28/17 09:00 03/01/17 08:19 (Aldactone) 25 mg BIDPC PO 02/27/17 18:00 Future hold 03/01/17 08:20 (Brilinta) 90 mg BID PO 02/27/17 21:00 03/01/17 20:04 ([place] 5-325 Mg) 1 tab Q4H PRN PO 02/27/17 19:00 02/28/17 04:43 (Dilaudid Pf Inj) 1 mg Q4H PRN IV PUSH 02/28/17 11:00 ([place]fort 5-325 Mg) 2 tab Q4H PRN PO 02/28/17 11:00 03/02/17 19:36 (Lipitor) 80 mg DAILY PO 03/01/17 09:00 03/01/17 08:20 Cefazolin Sodium/ Dextrose 50 ml @ 100 mls/hr APPLICATION INTEGRATION ENGINEER IV 03/01/17 10:00 03/04/17 09:59 Vancomycin HCl 1750 mg/Sodium Chloride 517.5 ml @ 257.5 mls/ hr Q24H IV 03/01/17 16:00 03/02/17 16:00 Miscellaneous Information SPECIFIC LAB TO BE DRAWN:VANCOMYCIN TROUGH DATE TO... ONCE ONCE .XX 03/03/17 15:45 03/03/17 15:46 (Zithromax) 250 mg DAILY PO 03/02/17 09:00 Lactated Ringer's 1,000 ml @ 30 mls/hr Q24H PRN IV 03/02/17 00:30 03/05/17 00:29 (Betadine 5% Antisepsis Kit) 1 applic APPLICATION INTEGRATION ENGINEER PRN EACH NARE 03/02/17 00:30 03/05/17 00:29 (Chlorhexidine 2% Cloth) 3 pack APPLICATION INTEGRATION ENGINEER PRN TOPICAL 03/02/17 00:30 03/05/17 00:29 (Lasix) 40 mg DAILY PO 03/03/17 09:00 Vital Signs / I&O Vital Signs Date Time Temp Pulse Resp B/P (MAP) Pulse Ox O2 Delivery O2 Flow Rate FiO2 03/02/17 18:00 98.5 68 14 118/75 (89) 98 03/02/17 17:15 65 16 111/58 (75) 96 Room Air 03/02/17 17:00 64 13 104/53 (70) 96 Room Air 03/02/17 16:45 73 27 107/56 (73) 97 Room Air 03/02/17 16:30 69 18 102/52 (69) 95 Room Air 03/02/17 16:15 73 20 108/57 (74) 95 Nasal Cannula 4 03/02/17 16:00 72 19 102/53 (69) 97 Nasal Cannula 4 03/02/17 15:52 83 103/53 03/02/17 15:45 75 23 97/54 (68) 97 Simple Mask 7 03/02/17 15:30 97.4 75 15 88/43 (58) 96 Simple Mask 7 03/02/17 08:00 98.0 90 18 130/66 (87) 95 03/02/17 01:25 98.1 92 18 133/62 95 03/02/17 01:25 98.1 92 18 133/60 (84) 95 03/01/17 22:00 98.0 87 18 121/57 03/01/17 22:00 98.0 87 18 121/57 03/01/17 20:36 96.7 80 18 118/64 (82) 96 I/O 03/01/17 03/01/17 03/01/17 03/02/17 03/02/17 03/02/17 07:00 15:00 23:00 07:00 15:00 23:00 Intake Total 810 ml 50 ml 1007 ml 330 ml 550 ml 4100 ml Output Total 800 ml 700 ml 2800 ml 2450 ml Balance 10 ml 50 ml 307 ml -2470 ml 550 ml 1650 ml Intake Oral 240 ml 440 ml IV Total 50 ml 567 ml 50 ml 50 ml Packed Cells 500 ml 250 ml 500 ml 500 ml Blood Product IV Normal Saline Flush 70 ml 30 ml Other 3600 ml Output Urine Total 800 ml 700 ml 2800 ml 1550 ml Estimated Blood Loss 900 ml # Voids 2 # Bowel Movements 0 0 Physical Exam GENERAL: In NAD SKIN: Warm and dry. HEAD: Normocephalic. EYES: No scleral icterus. No injection or drainage. NECK: Supple, trachea midline. No JVD or lymphadenopathy. CARDIOVASCULAR: Regular rate and rhythm without murmurs, gallops, or rubs. RESPIRATORY: Breath sounds equal bilaterally. No accessory muscle use. GASTROINTESTINAL: Abdomen soft, non-tender, nondistended. MUSCULOSKELETAL: No cyanosis, or edema. Ischemic hallux. Laboratory Laboratory Tests Test 03/02/17 04:08 03/02/17 14:00 White Blood Count 22.0 TH/MM3 Red Blood Count 3.47 MIL/MM3 Hemoglobin 9.6 GM/DL 10.2 GM/DL Hematocrit 28.5 % 31.3 % Mean Corpuscular Volume 82.2 FL Mean Corpuscular Hemoglobin 27.8 PG Mean Corpuscular Hemoglobin Concent 33.8 % Red Cell Distribution Width 16.7 % Platelet Count 363 TH/MM3 Mean Platelet Volume 7.5 FL Neutrophils (%) (Auto) 89.3 % Lymphocytes (%) (Auto) 3.2 % Monocytes (%) (Auto) 6.5 % Eosinophils (%) (Auto) 0.5 % Basophils (%) (Auto) 0.5 % Neutrophils # (Auto) 19.6 TH/MM3 Lymphocytes # (Auto) 0.7 TH/MM3 Monocytes # (Auto) 1.4 TH/MM3 Eosinophils # (Auto) 0.1 TH/MM3 Basophils # (Auto) 0.1 TH/MM3 CBC Comment DIFF FINAL Differential Comment Blood Urea Nitrogen 37 MG/DL Creatinine 2.12 MG/DL Random Glucose 198 MG/DL Calcium Level 8.2 MG/DL Sodium Level 130 MEQ/L Potassium Level 3.8 MEQ/L Chloride Level 96 MEQ/L Carbon Dioxide Level 20.5 MEQ/L Anion Gap 14 MEQ/L Estimat Glomerular Filtration Rate 32 ML/MIN Imaging Last Impressions Chest X-Ray 02/27/17 1407 Signed Impressions: Service Date/Time: Monday, February 27, 2017 14:23 - CONCLUSION: Some worsening of the left lower lobe infiltrate. Stable cardiomegaly. Pascual Roe Jr., MD Foot X-Ray 02/27/17 0000 Signed Impressions: Service Date/Time: Monday, February 27, 2017 14:20 - CONCLUSION: Soft tissue ulcer with subcutaneous emphysema. No evidence of osteomyelitis. Jase Sargent MD Aorta w/Runoff CTA 02/27/17 0000 Signed Impressions: Service Date/Time: Monday, February 27, 2017 17:08 - CONCLUSION: 1. Severe atherosclerotic disease of the abdominal aorta and its major branches and within both lower extremities. There is a moderate to severe stenosis of the midportion of the superficial femoral artery bilaterally but no vessel occlusion is identified. 2. Moderate size left pleural effusion. Justus Martinez MD Assessment and Plan Problem List: (1) CAD (coronary artery disease) ICD Codes: I25.10 - Atherosclerotic heart disease of [place] coronary artery without angina pectoris (2) PVD (peripheral vascular disease) ICD Codes: I73.9 - Peripheral vascular disease, unspecified (3) Stented coronary artery ICD Codes: Z95.5 - Presence of coronary angioplasty implant and graft Status: Acute (4) Hx of CABG ICD Codes: Z95.1 - Presence of aortocoronary bypass graft Status: Acute (5) Ischemic pain of left foot ICD Codes: M79.672 - Pain in left foot; I99.9 - Unspecified disorder of circulatory system Status: Acute (6) Diabetes mellitus ICD Codes: E11.9 - Type 2 diabetes mellitus without complications Status: Chronic (7) Carotid artery occlusion ICD Codes: I65.29 - Occlusion and stenosis of unspecified carotid artery Status: Acute (8) CHF (congestive heart failure) ICD Codes: I50.9 - Heart failure, unspecified Status: Chronic (9) Hyperlipidemia ICD Codes: E78.5 - Hyperlipidemia, unspecified Status: Chronic (10) Anemia ICD Codes: D64.9 - Anemia, unspecified Assessment and Plan Tolerated surgery well. No angina or CHF symptoms. Stays in SR. Continue current program including Brilinta and baby ASA to prevent stent thrombosis. Continue aggressive risk factor modification. Vy Crowder MD Mar 02, 2017 19:55
[2017-03-02 20:00] VITALS: BP 108/56; PULSE 68; RESP 16; TEMP 98.2; O2SAT 97
[2017-03-02] MEDS ORDERED: PHARMACY ORDERED LAB ONE (20:45)
[2017-03-02] MEDS: RESP: ALBUTEROL 2.5 MG/3 ML NEB (PRN) INH (20:57)
[2017-03-02] MEDS: EZETIMIBE 10 MG TAB PO SCH (22:24)
[2017-03-03] VITALS (7 sets, daily range): BP systolic 107–126; BP diastolic 53–69; PULSE 60–89; RESP 12–24; TEMP 97.5–98.6; O2SAT 96–99
[2017-03-03] MEDS: PIPERACIL-TAZO 3.375 GM PREMIX 50 ML IV SCH ×4 (02:19→20:05)
[2017-03-03] MEDS: RESP: ALBUTEROL 2.5 MG/3 ML NEB (PRN) INH ×3 (04:17→21:12)
[2017-03-03] MEDS: HEPARIN SODIUM - SQ 10,000 UNITS/ML VIAL SQ SCH ×3 (05:18→21:00)
[2017-03-03] MEDS: LEVOTHYROXINE SODIUM 25 MCG TAB PO SCH (05:18)
[2017-03-03 05:43] LABS: AUTOMATED NEUTROPHIL # 20.3 TH/MM3 (1.8-7.7); BASOPHIL % 0.2 % (0.0-2.0); HEMATOCRIT 35.3 % (39.0-51.0); HEMO FLAGS DIFF FINAL; LYMPH % 1.8 % (9.0-44.0); LYMPHOCYTE # 0.4 TH/MM3 (1.0-4.8); MEAN CORPUSCULAR HEMOGLOBIN 27.5 PG (27.0-34.0); MEAN CORPUSCULAR HGB CONC 33.2 % (32.0-36.0); MONO % 3.2 % (0.0-8.0); NEUT % 94.8 % (16.0-70.0); PLATELET COUNT 369 TH/MM3 (150-450); RED BLOOD COUNT 4.25 MIL/MM3 (4.50-5.90); RED CELL DISTRIBUTION WIDTH 17.1 % (11.6-17.2); WHITE BLOOD COUNT 21.4 TH/MM3 (4.0-11.0)
[2017-03-03 05:49] LABS: BICARBONATE 16.8 MEQ/L (21.0-32.0); POTASSIUM 3.9 MEQ/L (3.5-5.1)
[2017-03-03] MEDS: INSULIN ASPART SUPPLEMENTAL SCALE SQ SCH ×4 (05:55→20:56)
[2017-03-03] MEDS: LOSARTAN 25 MG TAB PO SCH (08:07)
[2017-03-03] MEDS: ATORVASTATIN 80 MG TAB PO SCH (08:07)
[2017-03-03] MEDS: FERROUS SULFATE 325 MG (65 MG ELEMENTAL IRON) TAB PO SCH ×2 (08:07→19:58)
[2017-03-03] MEDS: FUROSEMIDE 40 MG TAB PO SCH (08:07)
[2017-03-03] MEDS: AZITHROMYCIN 250 MG TAB PO SCH (08:07)
[2017-03-03] MEDS: ASPIRIN 81 MG CHEW TAB PO SCH (08:07)
[2017-03-03] MEDS: GABAPENTIN 100 MG CAP PO SCH ×4 (08:07→19:58)
[2017-03-03] MEDS: clonazePAM 0.5 MG TAB PO SCH ×2 (08:08→19:59)
[2017-03-03] MEDS: CARVEDILOL 6.25 MG TAB PO SCH ×2 (08:08→21:00)
[2017-03-03] MEDS: SPIRONOLACTONE 25 MG TAB PO SCH ×2 (10:06→16:23)
--- NOTE | 2017-03-03 10:45 | PD.CAR.PN ---
CVT Progress Note Subjective/Hospital Course: Patient with gangrene of the left hallux and cellulitis of the left foot diabetes mellitus and A. fib Likely patient has suffered cardioarterial or arterial arterial embolism and trashed left foot CTA pending but I do believe the patient has appreciable degree of peripheral vascular disease that may require reconstruction and I believe he will have moderate stenosis in superficial femoral arteries with probably significant calcifications in the distal vessels beyond trifurcation. In addition patient has left internal carotid occlusion and hemodynamically significant right stenosis so this will have to be dealt with at some point as well Full consult dictated Thanks J 02/28/17 As above noted and described in consultation, patient severe peripheral vascular disease and the degree of narrowing is more than I actually expected. Patient has severe stenosis of distal external iliac arteries and bilateral common femoral arteries. Patient also has severe stenosis of SFA bilateral. At this point the issue is the left leg so this patient will need left common femoral/external iliac endarterectomy patch angioplasty as well as superficial femoral artery balloon angioplasty with possible stent Patient will need basic cardiac input prior to surgery but at this point in absence of surgery the distal wound will not heal adequately. Even with surgery patient has severe distal disease beyond trifurcation in the anterior posterior tibial arteries and peroneal artery and this is flow-limiting as well. There is no question however we got to improve the inflow as above-stated Patient is on Brilinta and should stay on it throughout the surgical course. He will in addition received heparin during the surgery 03/01/17 Patient doing well at this time Combination of clinical findings and CTA is described above in the reveals bilateral severe vascular occlusive disease. Patient is scheduled tomorrow for common femoral and external iliac endarterectomy followed by balloon angioplasty of the SFA I believe that this will be successful procedure without a need for femoropopliteal bypass but I will leave this as a last resort option In addition patient has diffuse small vessel disease beyond the trifurcation but there is no endovascular or open procedure that would fix that Halux to be amputated and treated as per podiatry Cardiology consult is greatly appreciated and a clear that this patient has significant risk of surgery with underlying coronary artery disease as well as low ejection fraction to start with 03/03/17 Patient status post revascularization of the left leg with the common femoral endarterectomy patch and superficial femoral artery balloon angioplasty Patient has severe distal trifurcation disease and the severe SFA vascular occlusive disease but this is being corrected now on the left side Patient now has a bounding pulse in his [place] pedis and strong posterior tibial Foot is warm Incision is clean and dry Patient can have podiatry surgery any time from my point CLAIRE Sexton Transferred to floor Out of bed and ambulate as tolerated At some point in the future may be month or month and a half from now patient will need right sided reconstruction and also right carotid endarterectomy considering that he has a total left occlusion and significant right-sided symptomatic stenosis Objective: Vital Signs Date Time Temp Pulse Resp B/P (MAP) Pulse Ox O2 Delivery O2 Flow Rate FiO2 03/03/17 09:17 99 Nasal Cannula 2.00 03/03/17 08:00 97.8 65 12 126/69 (88) 96 03/03/17 04:00 98.6 67 14 108/63 (78) 96 03/03/17 00:00 98.2 60 14 110/62 (78) 99 03/02/17 20:00 98.2 68 16 108/56 (73) 97 03/02/17 18:00 98.5 68 14 118/75 (89) 98 03/02/17 17:15 65 16 111/58 (75) 96 Room Air 03/02/17 17:00 64 13 104/53 (70) 96 Room Air 03/02/17 16:45 73 27 107/56 (73) 97 Room Air 03/02/17 16:30 69 18 102/52 (69) 95 Room Air 03/02/17 16:15 73 20 108/57 (74) 95 Nasal Cannula 4 03/02/17 16:00 72 19 102/53 (69) 97 Nasal Cannula 4 03/02/17 15:52 83 103/53 03/02/17 15:45 75 23 97/54 (68) 97 Simple Mask 7 03/02/17 15:30 97.4 75 15 88/43 (58) 96 Simple Mask 7 Labs: Laboratory Tests Test 03/03/17 04:48 White Blood Count 21.4 TH/MM3 (4.0-11.0) Red Blood Count 4.25 MIL/MM3 (4.50-5.90) Hemoglobin 11.7 GM/DL (13.0-17.0) Hematocrit 35.3 % (39.0-51.0) Mean Corpuscular Volume 83.0 FL (80.0-100.0) Mean Corpuscular Hemoglobin 27.5 PG (27.0-34.0) Mean Corpuscular Hemoglobin Concent 33.2 % (32.0-36.0) Red Cell Distribution Width 17.1 % (11.6-17.2) Platelet Count 369 TH/MM3 (150-450) Mean Platelet Volume 7.3 FL (7.0-11.0) Neutrophils (%) (Auto) 94.8 % (16.0-70.0) Lymphocytes (%) (Auto) 1.8 % (9.0-44.0) Monocytes (%) (Auto) 3.2 % (0.0-8.0) Eosinophils (%) (Auto) 0.0 % (0.0-4.0) Basophils (%) (Auto) 0.2 % (0.0-2.0) Neutrophils # (Auto) 20.3 TH/MM3 (1.8-7.7) Lymphocytes # (Auto) 0.4 TH/MM3 (1.0-4.8) Monocytes # (Auto) 0.7 TH/MM3 (0-0.9) Eosinophils # (Auto) 0.0 TH/MM3 (0-0.4) Basophils # (Auto) 0.0 TH/MM3 (0-0.2) CBC Comment DIFF FINAL Differential Comment Blood Urea Nitrogen 32 MG/DL (7-18) Creatinine 1.51 MG/DL (0.60-1.30) Random Glucose 279 MG/DL (74-106) Calcium Level 8.4 MG/DL (8.5-10.1) Sodium Level 132 MEQ/L (136-145) Potassium Level 3.9 MEQ/L (3.5-5.1) Chloride Level 102 MEQ/L (98-107) Carbon Dioxide Level 16.8 MEQ/L (21.0-32.0) Anion Gap 13 MEQ/L (5-15) Estimat Glomerular Filtration Rate 47 ML/MIN (>89) Result Diagram: 03/03/1744703/03/17447 (1) CAD (coronary artery disease) (2) PVD (peripheral vascular disease) (3) Stented coronary artery (4) Hx of CABG (5) Ischemic pain of left foot (6) Diabetes mellitus (7) Carotid artery occlusion (8) CHF (congestive heart failure) (9) Hyperlipidemia (10) Anemia Trisha Fleming MD Mar 03, 2017 10:45
[2017-03-03] MEDS: TICAGRELOR 90 MG TAB PO SCH ×2 (11:10→19:58)
--- NOTE | 2017-03-03 11:46 | HHI.PR ---
Subjective Remarks f/u; left great toe gangrene/ left foot cellulitis in no acute distress. complaining of some pain to the left foot. slightly confused today. no fever. d/w the RN at the bedside. Objective Vitals Vital Signs Date Time Temp Pulse Resp B/P (MAP) Pulse Ox O2 Delivery O2 Flow Rate FiO2 03/03/17 09:17 99 Nasal Cannula 2.00 03/03/17 08:00 97.8 65 12 126/69 (88) 96 03/03/17 04:00 98.6 67 14 108/63 (78) 96 03/03/17 00:00 98.2 60 14 110/62 (78) 99 03/02/17 20:00 98.2 68 16 108/56 (73) 97 03/02/17 18:00 98.5 68 14 118/75 (89) 98 03/02/17 17:15 65 16 111/58 (75) 96 Room Air 03/02/17 17:00 64 13 104/53 (70) 96 Room Air 03/02/17 16:45 73 27 107/56 (73) 97 Room Air 03/02/17 16:30 69 18 102/52 (69) 95 Room Air 03/02/17 16:15 73 20 108/57 (74) 95 Nasal Cannula 4 03/02/17 16:00 72 19 102/53 (69) 97 Nasal Cannula 4 03/02/17 15:52 83 103/53 03/02/17 15:45 75 23 97/54 (68) 97 Simple Mask 7 03/02/17 15:30 97.4 75 15 88/43 (58) 96 Simple Mask 7 I/O 03/02/17 03/02/17 03/02/17 03/03/17 03/03/17 03/03/17 07:00 15:00 23:00 07:00 15:00 23:00 Intake Total 330 ml 550 ml 4100 ml 1528 ml Output Total 2800 ml 2480 ml 1270 ml Balance -2470 ml 550 ml 1620 ml 258 ml Intake Oral 960 ml IV Total 50 ml 50 ml 568 ml Packed Cells 250 ml 500 ml 500 ml Blood Product IV Normal Saline Flush 30 ml Other 3600 ml Output Urine Total 2800 ml 1550 ml 1250 ml Drainage Total 30 ml 20 ml Estimated Blood Loss 900 ml # Bowel Movements 0 0 Result Diagram: 03/03/17 0448 03/03/17 0448 Imaging Last Impressions Chest X-Ray 02/27/17 1407 Signed Impressions: Service Date/Time: Monday, February 27, 2017 14:23 - CONCLUSION: Some worsening of the left lower lobe infiltrate. Stable cardiomegaly. Pascual Roe Jr., MD Foot X-Ray 02/27/17 0000 Signed Impressions: Service Date/Time: Monday, February 27, 2017 14:20 - CONCLUSION: Soft tissue ulcer with subcutaneous emphysema. No evidence of osteomyelitis. Jase Sargent MD Aorta w/Runoff CTA 02/27/17 0000 Signed Impressions: Service Date/Time: Monday, February 27, 2017 17:08 - CONCLUSION: 1. Severe atherosclerotic disease of the abdominal aorta and its major branches and within both lower extremities. There is a moderate to severe stenosis of the midportion of the superficial femoral artery bilaterally but no vessel occlusion is identified. 2. Moderate size left pleural effusion. Justus Martinez MD Objective Remarks GENERAL: This is a well-nourished, well-developed patient, in no apparent distress. CARDIOVASCULAR: Regular rate and regular rhythm without murmurs, gallops, or rubs. RESPIRATORY: Clear to auscultation. Breath sounds equal bilaterally. No wheezes , rales, or rhonchi. GASTROINTESTINAL: Abdomen soft, non-tender, nondistended. Normal, active bowel sounds MUSCULOSKELETAL: gangrene left toe with some erythema over the left foot NEURO: Alert & Oriented x4 to person, place, time, situation. Moves all ext x4 Procedures s/p revascularization of the left leg with the common femoral endarterectomy patch and superficial femoral artery balloon angioplasty Medications and IVs Current Medications Vancomycin HCl 1000 mg/Sodium Chloride 250 ml @ 250 mls/hr ONCE ONCE IV Last administered on 02/27/17 16:42; Start 02/27/17 at 14:15; Stop 02/27/17 at 15:14 ; Status DC Piperacillin Sod/ Tazobactam Sod 50 ml @ 100 mls/hr ONCE ONCE IV Last administered on 02/27/17 14:56; Start 02/27/17 at 14:15; Stop 02/27/17 at 14:44 ; Status DC Morphine Sulfate (Morphine Inj) 4 mg ONCE ONCE IV PUSH Last administered on 14:56; Start 02/27/17 at 14:15; Stop 02/27/17 at 14:16; Status DC Ondansetron HCl (Zofran Inj) 4 mg ONCE ONCE IV PUSH Last administered on 14:53; Start 02/27/17 at 14:15; Stop 02/27/17 at 14:16; Status DC Dextrose (D50w (Vial) Inj) 50 ml UNSCH PRN IV HYPOGLYCEMIA-SEE COMMENTS; Start 02/27/17 at 16:45 Glucagon (Glucagon Inj) 1 mg UNSCH PRN OTHER HYPOGLYCEMIA-SEE COMMENTS; Start 02/27/17 at 16:45 Insulin Aspart (NovoLOG SUPPLEMENTAL SCALE) 1 ACHS SLIDING SCALE SQ Last administered on 03/03/17 10:53; Start 02/27/17 at 21:00 Piperacillin Sod/ Tazobactam Sod 50 ml @ 100 mls/hr Q6H IV Last administered on 03/03/17 08:07; Start 02/27/17 at 21:00 Pharmacy Profile Note 0 ml @ 0 mls/hr UNSCH OTHER ; Start 02/27/17 at 16:45 Aspirin (Aspirin Chew) 81 mg DAILY PO Last administered on 03/03/17 08:07; Start 02/28/17 at 09:00 Carvedilol (Coreg) 6.25 mg BID PO Last administered on 03/03/17 08:08; Start 02/27/17 at 21:00 Clonazepam (KlonoPIN) 0.5 mg BID PO Last administered on 03/03/17 08:08; Start 02/27/17 at 21:00 EZETIMIBE (Zetia) 10 mg HS PO Last administered on 03/02/17 22:24; Start 02/27 at 21:00 Ferrous Sulfate (Ferrous Sulfate) 325 mg BID PO Last administered on 03/03/17 08:07; Start 02/27/17 at 21:00 Furosemide (Lasix) 80 mg BID PO Last administered on 03/01/17 20:05; Start at 21:00; Stop 03/01/17 at 20:26; Status DC Gabapentin (Neurontin) 100 mg QID PO Last administered on 03/03/17 08:07; Start 02/27/17 at 18:00 Levothyroxine Sodium (Synthroid) 25 mcg DAILY@0600 PO Last administered on 03/03 05:18; Start 02/28/17 at 06:00 Losartan Potassium (Cozaar) 25 mg DAILY PO Last administered on 03/03/17 08:07 ; Start 02/28/17 at 09:00 Spironolactone (Aldactone) 25 mg BIDPC PO Last administered on 03/03/17 10:06 ; Start 02/27/17 at 18:00; Status Future hold Ticagrelor (Brilinta) 90 mg BID PO Last administered on 03/03/17 11:10; Start 02/27/17 at 21:00 Non-Formulary Medication 40 mg HS PO ; Start 02/27/17 at 21:00; Status UNV Acetaminophen/ Hydrocodone Bitart ([place] 5-325 Mg) 1 tab Q4H PRN PO PAIN 1-5 Last administered on 02/28/17 04:43; Start 02/27/17 at 19:00 Hydromorphone HCl (Dilaudid Pf Inj) 0.5 mg Q4H PRN IV PUSH PAIN 6-10 Last administered on 02/28/17 00:15; Start 02/27/17 at 19:00; Stop 02/28/17 at 09:51 ; Status DC Pravastatin Sodium (Pravachol) 80 mg HS PO Last administered on 02/27/17 23:53 ; Start 02/27/17 at 21:00; Stop 02/28/17 at 16:41; Status DC Vancomycin HCl 1000 mg/Sodium Chloride 250 ml @ 250 mls/hr ONCE ONCE IV Last administered on 02/28/17 00:12; Start 02/27/17 at 21:00; Stop 02/27/17 at 21:59 ; Status DC Vancomycin HCl 1750 mg/Sodium Chloride 517.5 ml @ 257.5 mls/ hr Q24H IV ; Start 02/28/17 at 21:00; Stop 03/01/17 at 13:37; Status DC Miscellaneous Information SPECIFIC LAB TO BE MARIO... ONCE ONCE .XX ; Start 03/02 at 20:45; Stop 03/02/17 at 20:46; Status Cancel Hydromorphone HCl (Dilaudid Pf Inj) 1 mg Q4H PRN IV PUSH BREAKTHROUGH PAIN; Start 02/28/17 at 11:00 Acetaminophen/ Hydrocodone Bitart ([place] 5-325 Mg) 2 tab Q4H PRN PO PAIN 6-10 Last administered on 03/02/17 19:36; Start 02/28/17 at 11:00 Atorvastatin Calcium (Lipitor) 80 mg DAILY PO Last administered on 03/03/17 08 :07; Start 03/01/17 at 09:00 Sodium Chloride 250 ml @ 15 mls/hr ONCE ONCE IV Last administered on 21:30; Start 02/28/17 at 17:30; Stop 03/01/17 at 10:09; Status DC Furosemide (Lasix Inj) 20 mg ONCE ONCE IV Last administered on 03/01/17 01:36 ; Start 02/28/17 at 17:30; Stop 02/28/17 at 17:32; Status DC Cefazolin Sodium/ Dextrose 50 ml @ 100 mls/hr TOOL [employer] DIE ASSEMBLER IV ; Start 03/01/17 at 10:00; Stop 03/04/17 at 09:59 Sodium Chloride 250 ml @ 15 mls/hr ONCE ONCE IV Last administered on 13:20; Start 03/01/17 at 12:30; Stop 03/02/17 at 05:09; Status DC Furosemide (Lasix Inj) 20 mg UNSCH X1 PRN IV AFTER 1ST UNIT OF BLOOD Last administered on 03/01/17 17:13; Start 03/01/17 at 12:30; Stop 03/01/17 at 23:59 ; Status DC Vancomycin HCl 1750 mg/Sodium Chloride 517.5 ml @ 257.5 mls/ hr Q24H IV Last administered on 03/02/17 16:00; Start 03/01/17 at 16:00 Miscellaneous Information SPECIFIC LAB TO BE DRAWN:VANCOMYCIN TROUGH DATE TO... ONCE ONCE .XX ; Start 03/03/17 at 15:45; Stop 03/03/17 at 15:46 Azithromycin (Zithromax) 500 mg ONCE ONCE PO Last administered on 03/01/17 20 :07; Start 03/01/17 at 20:00; Stop 03/01/17 at 20:02; Status DC Azithromycin (Zithromax) 250 mg DAILY PO Last administered on 03/03/17 08:07; Start 03/02/17 at 09:00 Furosemide (Lasix Inj) 20 mg UNSCH X1 PRN IV PUSH AFTER 2ND UNIT OF PRBC Last administered on 03/02/17 01:09; Start 03/01/17 at 20:30; Stop 03/02/17 at 16:00 ; Status DC Furosemide (Lasix) 40 mg ONCE ONCE PO Last administered on 03/01/17 21:00; Start 03/01/17 at 21:00; Stop 03/01/17 at 21:01; Status DC Furosemide (Lasix) 80 mg BID PO ; Start 03/02/17 at 09:00; Stop 03/02/17 at 09: 00; Status DC Lactated Ringer's 1,000 ml @ 30 mls/hr Q24H PRN IV SEE LABEL COMMENTS; Start at 00:30; Stop 03/05/17 at 00:29 Povidone Iodine (Betadine 5% Antisepsis Kit) 1 applic TO[employer] DIE ASSEMBLER PRN EACH NARE SEE LABEL COMMENTS; Start 03/02/17 at 00:30; Stop 03/05/17 at 00:29 Chlorhexidine Gluconate (Chlorhexidine 2% Cloth) 3 pack [employer] ASSEMBLER PRN TOPICAL SEE LABEL COMMENTS; Start 03/02/17 at 00:30; Stop 03/05/17 at 00:29 Furosemide (Lasix) 40 mg DAILY PO Last administered on 03/03/17 08:07; Start 03/03/17 at 09:00 Heparin Sodium (Porcine) (Heparin Inj) 10,000 units STK-MED ONCE .ROUTE Last administered on 03/02/17 12:27; Start 03/02/17 at 09:53; Stop 03/02/17 at 09:54 ; Status DC Acetaminophen 100 ml @ As Directed STK-MED ONCE IV ; Start 03/02/17 at 09:56; Stop 03/02/17 at 09:57; Status DC Midazolam HCl (Versed Inj) 2 mg STK-MED ONCE .ROUTE ; Start 03/02/17 at 09:57; Stop 03/02/17 at 09:58; Status DC Famotidine (Pepcid Inj) 20 mg STK-MED ONCE .ROUTE ; Start 03/02/17 at 09:57; Stop 03/02/17 at 09:58; Status DC Sugammadex Sodium (Bridion Inj) 200 mg STK-MED ONCE IV PUSH ; Start 03/02/17 at 09:57; Stop 03/02/17 at 09:58; Status DC Fentanyl Citrate (fentaNYL INJ) 250 mcg STK-MED ONCE .ROUTE ; Start 03/02/17 at 10:00; Stop 03/02/17 at 10:01; Status DC Bupivacaine HCl/ Epinephrine Bitart (Sensorcaine-Epinephrine Pf 0.5% Inj) 30 ml STK-MED ONCE .ROUTE ; Start 03/02/17 at 11:51; Stop 03/02/17 at 11:52; Status DC Heparin Sodium (Porcine) (Heparin Inj) 10,000 units STK-MED ONCE .ROUTE Last administered on 03/02/17 12:03; Start 03/02/17 at 12:48; Stop 03/02/17 at 12:49 ; Status DC Iohexol 35 ml @ 0 mls/hr ONCE ONCE IV ; Start 03/02/17 at 15:21; Stop 03/02/17 at 15:45; Status DC Morphine Sulfate (*morphine INJ PERIprocedure ONLY) 8 mg STK-MED ONCE .ROUTE Last administered on 03/02/17 15:46; Start 03/02/17 at 15:46; Stop 03/02/17 at 15:47; Status DC Albuterol Sulfate (*ALBUTEROL NEB PERIprocedure ONLY) 2.5 mg STK-MED ONCE NEB Last administered on 03/02/17 15:47; Start 03/02/17 at 15:47; Stop 03/02/17 at 15:48; Status DC Phenylephrine HCl (Neosynephrine Inj) 40 mg STK-MED ONCE .ROUTE ; Start at 15:52; Stop 03/02/17 at 15:53; Status DC Bacitracin (Baciguent Oint) 15 applic STK-MED ONCE .ROUTE ; Start 03/02/17 at 16 :01; Stop 03/02/17 at 16:02; Status DC Morphine Sulfate (*morphine INJ PERIprocedure ONLY) 8 mg STK-MED ONCE .ROUTE Last administered on 03/02/17 16:26; Start 03/02/17 at 16:26; Stop 03/02/17 at 16:27; Status DC Haloperidol Lactate (Haldol Inj) 5 mg STK-MED ONCE .ROUTE Last administered on 03/02/17 16:40; Start 03/02/17 at 16:40; Stop 03/02/17 at 16:41; Status DC Haloperidol Lactate (Haldol Inj) 2.5 mg NOW ONCE IV PUSH ; Start 03/02/17 at 17 :00; Stop 03/02/17 at 17:01; Status DC Albuterol Sulfate (Albuterol Neb) 2.5 mg Q4HR NEB PRN INH SOB/WHEEZING Last administered on 03/03/17 04:17; Start 03/02/17 at 21:00 Heparin Sodium (Porcine) (Heparin Inj) 5,000 units Q8HR SQ Last administered on 03/03/17 05:18; Start 03/03/17 at 06:00 A/P Assessment and Plan A/P ischemic left foot with gangrene of the left great toe s/p status post revascularization of the left leg with the common femoral endarterectomy patch and superficial femoral artery balloon angioplasty management per vascular surgery. sepsis due to Cellulitis/Diabetic foot ulcer Continue IV Zosyn and Vancomycin blood cultures negative so far ID and podiatry following. CAD with ischemic cardiomyopathy previous CABG recent NSTEMI status post cardiac catheterization stent implantation 12/23 History of V. tach History of atrial fibrillation status post ablation Hypertension Severe left ventricular systolic dysfunction continue aspirin and Brilinta Continue coreg and losartan- continue lasix and aldactone; decreased the dose of lasix with close monitoring of the renal function. cardiology following. Monitor for signs of fluid overload acute kidney injury improved. decreased the dose of lasix monitor I/O and renal function closely. Type 2 DM Diabetic neuropathy Hold patient's metformin, glipizide and pioglitazone Accu-Cheks and insulin sliding scale will add levemir Continue patient's home dose of gabapentin 100 mg by mouth 4 times a day Diabetic diet HLD Continue patient's home dose of simvastatin and Zetia Hyponatremia-improved. chronic will monitor Anemia s/p PRBC transfusion- H/H now improved- will monitor Continue patient on home dose of ferrous sulfate 325 mg by mouth twice a day stool for blood pending. Hypothyroidism Continue patient on home dose of levothyroxine 25 g daily DVT prophylaxis; subq Heparin Akash Shea MD Mar 03, 2017 11:46
[2017-03-03] MEDS: HALOPERIDOL LACTATE 5 MG/ML AMP IM PRN ×2 (15:00→20:43)
[2017-03-03] MEDS ORDERED: PHARMACY ORDERED LAB ONE (15:45)
[2017-03-03] MEDS: VANCOMYCIN INJ 1,750 MG in SODIUM CHLORID 0.9% 500 ML INJ 500 ML IV SCH (16:22)
--- NOTE | 2017-03-03 18:12 | PD.POD ---
Subjective Podiatric Problems L foot in Past Med/Surg/Social History Past Medical History Endocrine: REPORTS HX OF: Diabetes mellitus Respiratory: REPORTS HX OF: Other respiratory history Cardiovascular: REPORTS HX OF: Atrial fibrillation, Heart failure, Hypertension Genitourinary: REPORTS HX OF: Kidney disease Past Surgical History Cardiovascular: REPORTS HX OF: CABG surgery, Pacemaker Social History Smoking Status: Former Smoker Objective Vital Signs Vital Signs Date Time Temp Pulse Resp B/P (MAP) Pulse Ox O2 Delivery O2 Flow Rate FiO2 03/03/17 16:00 97.6 73 14 107/53 (71) 99 03/03/17 12:00 97.5 75 19 111/67 (82) 98 03/03/17 09:17 99 Nasal Cannula 2.00 03/03/17 08:00 97.8 65 12 126/69 (88) 96 03/03/17 04:00 98.6 67 14 108/63 (78) 96 03/03/17 00:00 98.2 60 14 110/62 (78) 99 03/02/17 20:00 98.2 68 16 108/56 (73) 97 Coded Allergies: cyclobenzaprine (Unverified Allergy, Severe, Flushing, 02/27/17) REDNESS lisinopril (Unverified Allergy, Unknown, Swelling, 02/27/17) ANGIOEDEMA Medications and IVs Current Medications Medications (Trade) Dose Ordered Sig/Hugo Route Start Time Stop Time Status Last Admin (D50w (Vial) Inj) 50 ml UNSCH PRN IV 02/27/17 16:45 (Glucagon Inj) 1 mg UNSCH PRN OTHER 02/27/17 16:45 (NovoLOG SUPPLEMENTAL SCALE) 1 ACHS SLIDING SCALE SQ 02/27/17 21:00 03/03/17 16:00 Piperacillin Sod/ Tazobactam Sod 50 ml @ 100 mls/hr Q6H IV 02/27/17 21:00 03/03/17 13:22 Pharmacy Profile Note 0 ml @ 0 mls/hr UNSCH OTHER 02/27/17 16:45 (Aspirin Chew) 81 mg DAILY PO 02/28/17 09:00 03/03/17 08:07 (Coreg) 6.25 mg BID PO 02/27/17 21:00 03/03/17 08:08 (KlonoPIN) 0.5 mg BID PO 02/27/17 21:00 03/03/17 08:08 (Zetia) 10 mg HS PO 02/27/17 21:00 03/02/17 22:24 (Ferrous Sulfate) 325 mg BID PO 02/27/17 21:00 03/03/17 08:07 (Neurontin) 100 mg QID PO 02/27/17 18:00 03/03/17 16:23 (Synthroid) 25 mcg DAILY@0600 PO 02/28/17 06:00 03/03/17 05:18 (Cozaar) 25 mg DAILY PO 02/28/17 09:00 03/03/17 08:07 (Aldactone) 25 mg BIDPC PO 02/27/17 18:00 Future hold 03/03/17 16:23 (Brilinta) 90 mg BID PO 02/27/17 21:00 03/03/17 11:10 ([place] 5-325 Mg) 1 tab Q4H PRN PO 02/27/17 19:00 02/28/17 04:43 (Dilaudid Pf Inj) 1 mg Q4H PRN IV PUSH 02/28/17 11:00 ([place] 5-325 Mg) 2 tab Q4H PRN PO 02/28/17 11:00 03/02/17 19:36 (Lipitor) 80 mg DAILY PO 03/01/17 09:00 03/03/17 08:07 Cefazolin Sodium/ Dextrose 50 ml @ 100 mls/hr MUSEUM SPECIALIST IV 03/01/17 10:00 03/04/17 09:59 Vancomycin HCl 1750 mg/Sodium Chloride 517.5 ml @ 257.5 mls/ hr Q24H IV 03/01/17 16:00 03/03/17 16:22 (Zithromax) 250 mg DAILY PO 03/02/17 09:00 03/03/17 08:07 Lactated Ringer's 1,000 ml @ 30 mls/hr Q24H PRN IV 03/02/17 00:30 03/05/17 00:29 (Betadine 5% Antisepsis Kit) 1 applic MUSEUM SPECIALIST PRN EACH NARE 03/02/17 00:30 03/05/17 00:29 (Chlorhexidine 2% Cloth) 3 pack MUSEUM SPECIALIST PRN TOPICAL 03/02/17 00:30 03/05/17 00:29 (Lasix) 40 mg DAILY PO 03/03/17 09:00 03/03/17 08:07 (Albuterol Neb) 2.5 mg Q4HR NEB PRN INH 03/02/17 21:00 03/03/17 13:20 (Heparin Inj) 5,000 units Q8HR SQ 03/03/17 06:00 03/03/17 13:22 (Levemir Inj) 10 units HS SQ 03/03/17 21:00 (Haldol Inj) 4 mg Q6H PRN IM 03/03/17 14:30 03/03/17 15:00 (SEROquel) 100 mg BID PO 03/03/17 21:00 Other Results Laboratory Tests Test 02/27/17 14:45 02/27/17 16:45 02/28/17 19:00 03/01/17 06:32 Prothrombin Time 15.1 SEC Prothromb Time International Ratio 1.3 RATIO Activated Partial Thromboplast Time 33.4 SEC Lactic Acid Level 1.7 mmol/L Blood Urea Nitrogen 23 MG/DL Creatinine 1.19 MG/DL Random Glucose 235 MG/DL Total Protein 8.5 GM/DL Albumin 3.0 GM/DL Calcium Level 9.1 MG/DL Alkaline Phosphatase 95 U/L Aspartate Amino Transf (AST/SGOT) 20 U/L Alanine Aminotransferase (ALT/SGPT) 36 U/L Total Bilirubin 0.4 MG/DL Sodium Level 127 MEQ/L Potassium Level 4.4 MEQ/L Chloride Level 96 MEQ/L Carbon Dioxide Level 21.4 MEQ/L Urine Color YELLOW Urine Turbidity CLEAR Urine pH 5.5 Urine Specific [place] 1.011 Urine Protein TRACE mg/dL Urine Glucose (UA) NEG mg/dL Urine Ketones NEG mg/dL Urine Occult Blood NEG Urine Nitrite NEG Urine Bilirubin NEG Urine Urobilinogen LESS THAN 2.0 MG/DL Urine Leukocyte Esterase NEG Microscopic Urinalysis Comment CATH-CULT NOT IND Iron Level 11 MCG/DL Total Iron Binding Capacity 294 MCG/DL Percent Iron Saturation 3.7 % Ferritin 145 NG/ML Triglycerides Level 80 MG/DL Cholesterol Level 86 MG/DL LDL Cholesterol 50 MG/DL HDL Cholesterol 19.9 MG/DL Cholesterol/HDL Ratio 4.32 RATIO Random Vancomycin Level 6.1 COMMENT Test 03/03/17 04:48 03/03/17 16:18 White Blood Count 21.4 TH/MM3 Red Blood Count 4.25 MIL/MM3 Hemoglobin 11.7 GM/DL Hematocrit 35.3 % Mean Corpuscular Volume 83.0 FL Mean Corpuscular Hemoglobin 27.5 PG Mean Corpuscular Hemoglobin Concent 33.2 % Red Cell Distribution Width 17.1 % Platelet Count 369 TH/MM3 Mean Platelet Volume 7.3 FL Neutrophils (%) (Auto) 94.8 % Lymphocytes (%) (Auto) 1.8 % Monocytes (%) (Auto) 3.2 % Eosinophils (%) (Auto) 0.0 % Basophils (%) (Auto) 0.2 % Neutrophils # (Auto) 20.3 TH/MM3 Lymphocytes # (Auto) 0.4 TH/MM3 Monocytes # (Auto) 0.7 TH/MM3 Eosinophils # (Auto) 0.0 TH/MM3 Basophils # (Auto) 0.0 TH/MM3 CBC Comment DIFF FINAL Differential Comment Blood Urea Nitrogen 32 MG/DL Creatinine 1.51 MG/DL Random Glucose 279 MG/DL Calcium Level 8.4 MG/DL Sodium Level 132 MEQ/L Potassium Level 3.9 MEQ/L Chloride Level 102 MEQ/L Carbon Dioxide Level 16.8 MEQ/L Anion Gap 13 MEQ/L Estimat Glomerular Filtration Rate 47 ML/MIN Vancomycin Level Trough 16.1 MCG/ML Exam-Podiatry Remarks L foot with demarcating necrotic tissue to plantar 1st met head area and entire hallux remains purple and gangrenous. Foul odor present. No sunita purulence noted. Foot warm. Hallux cold. Assessment & Plan A/P Gangrene L hallux/1st MTP joint area. Recommend partial 1st ray amputation at minimum Dr Eid will be back in town. Consulted with Dr Fleming and he is agreeable that patient will continue to demarcate further and ok to have Dr Eid take over patient on Sunday for surgical treatment. Continue IV antibiotics. Contacted Dr Eid via text, he is out of town, that I will arrange things on his behalf likely for surgery sunday. He has not yet returned my message, so concrete plans are pending. Marlene Hatfield DPM Mar 03, 2017 18:12
--- NOTE | 2017-03-03 18:34 | EKG ---
Date Performed: 03/02/2017 Time Performed: 16:06:40 PTAGE: 61 years EKG: ELECTRONIC VENTRICULAR PACEMAKER ABNORMAL RHYTHM ECG PREVIOUS TRACING : 02/28/2017 14.25 Compared to prior tracing no significant change DOCTOR: Vy Crowder Interpretating Date/Time 03/03/2017 18:32:57
[2017-03-03] MEDS: EZETIMIBE 10 MG TAB PO SCH (19:58)
[2017-03-03] MEDS: QUEtiapine FUMARATE 100 MG TAB PO SCH (20:01)
[2017-03-03] MEDS: INSULIN DETEMIR 100 UNITS/ML VIAL SQ SCH (20:08)
[2017-03-03 21:59] LABS: BLOOD GAS CARBOXYHEMOGLOBIN 1.3 % (0-4); BLOOD GAS HCO3 18 mmol/L (22-26); BLOOD GAS O2 HGB SATURATION 98 % (90-100); BLOOD GAS OXYGEN CONTENT 13.4 Vol % (12.0-20.0); BLOOD GAS PCO2 25 mmHg (38-42); BLOOD GAS PO2 109 mmHg (61-120); BLOOD GAS TOTAL HGB 9.7 G/DL (12.0-16.0); CRITICAL VALUE NO; OXYGEN DEVICE NASAL CANNULA; TEMP CORR TO 98.6
[2017-03-03 22:00] LABS: DRAW SITE RT RADIAL; LITER FLOW 3 L/M; NUMBER OF ARTERIAL PUNCTURES 1; STAT YES; ULNAR PULSE PRESENT
--- NOTE | 2017-03-03 22:00 | RADRPT ---
EXAM DATE/TIME: 03/03/2017 21:30 [facility] COMPARISON: CHEST SINGLE AP, February 27, 2017, 14:23. INDICATIONS : Shortness of breath. MEDICAL HISTORY : Congestive heart failure. Diabetes mellitus type II. SURGICAL HISTORY : Pacemaker. Defibrillator. CABG ENCOUNTER: Subsequent ACUITY: 1 day PAIN SCORE: 0/10 LOCATION: Bilateral chest FINDINGS: Median sternotomy wires are noted status post cardiac surgery. A left subclavian multi-lead pacemake r has its tips in the right heart and is unchanged compared to the previous examination. The heart i s enlarged. Mild pulmonary vascular congestion is noted bilaterally. Old healed fractures of the ri ght rib cage are stable. CONCLUSION: 1. Mild pulmonary vascular congestion bilaterally. 2. Cardiomegaly. Thomas Acosta MD on March 03, 2017 at 21:56 Board Certified Radiologist. This report was verified electronically.
[2017-03-03] MEDS ORDERED: DEXMEDETOMIDINE HCL 200 MCG/2 ML VIAL ONE ×2 (22:39→23:17)
[2017-03-03] MEDS ORDERED: DEXMEDETOMIDINE 200 MCG in NS 48 ML IV PRN (23:45)
[2017-03-04] VITALS (7 sets, daily range): BP systolic 100–113; BP diastolic 55–65; PULSE 59–68; RESP 12–22; TEMP 97.5–98.5; O2SAT 96–100
[2017-03-04] MEDS: PIPERACIL-TAZO 3.375 GM PREMIX 50 ML IV SCH ×4 (02:46→20:20)
[2017-03-04] MEDS: LEVOTHYROXINE SODIUM 25 MCG TAB PO SCH (06:01)
[2017-03-04] MEDS: HEPARIN SODIUM - SQ 10,000 UNITS/ML VIAL SQ SCH ×3 (06:01→20:23)
[2017-03-04] MEDS: INSULIN ASPART SUPPLEMENTAL SCALE SQ SCH ×4 (06:20→20:22)
[2017-03-04 07:09] LABS: BICARBONATE 19.1 MEQ/L (21.0-32.0); POTASSIUM 3.7 MEQ/L (3.5-5.1)
[2017-03-04] MEDS: TICAGRELOR 90 MG TAB PO SCH ×2 (08:42→20:24)
[2017-03-04] MEDS: AZITHROMYCIN 250 MG TAB PO SCH (08:42)
[2017-03-04] MEDS: QUEtiapine FUMARATE 100 MG TAB PO SCH ×2 (08:42→20:23)
[2017-03-04] MEDS: CARVEDILOL 6.25 MG TAB PO SCH ×2 (08:43→20:23)
[2017-03-04] MEDS: ASPIRIN 81 MG CHEW TAB PO SCH (08:43)
[2017-03-04] MEDS: FERROUS SULFATE 325 MG (65 MG ELEMENTAL IRON) TAB PO SCH ×2 (08:43→20:23)
[2017-03-04] MEDS: FUROSEMIDE 40 MG TAB PO SCH (08:43)
[2017-03-04] MEDS: SPIRONOLACTONE 25 MG TAB PO SCH ×2 (08:43→17:48)
[2017-03-04] MEDS: ATORVASTATIN 80 MG TAB PO SCH (08:43)
[2017-03-04] MEDS: NICOTINE 21 MG/24 HR PATCH T-DERMAL SCH ×2 (08:44)
[2017-03-04] MEDS: GABAPENTIN 100 MG CAP PO SCH ×4 (08:45→20:23)
[2017-03-04] MEDS: clonazePAM 0.5 MG TAB PO SCH (08:47)
[2017-03-04] MEDS: LOSARTAN 25 MG TAB PO SCH (08:47)
[2017-03-04] MEDS ORDERED: clonazePAM 0.5 MG TAB PO PRN (09:00)
[2017-03-04] MEDS: REMOVE OLD PATCH T-DERMAL SCH (09:00)
--- NOTE | 2017-03-04 10:44 | PD.CAR.PN ---
CVT Progress Note Subjective/Hospital Course: Patient with gangrene of the left hallux and cellulitis of the left foot diabetes mellitus and A. fib Likely patient has suffered cardioarterial or arterial arterial embolism and trashed left foot CTA pending but I do believe the patient has appreciable degree of peripheral vascular disease that may require reconstruction and I believe he will have moderate stenosis in superficial femoral arteries with probably significant calcifications in the distal vessels beyond trifurcation. In addition patient has left internal carotid occlusion and hemodynamically significant right stenosis so this will have to be dealt with at some point as well Full consult dictated Thanks J 02/28/17 As above noted and described in consultation, patient severe peripheral vascular disease and the degree of narrowing is more than I actually expected. Patient has severe stenosis of distal external iliac arteries and bilateral common femoral arteries. Patient also has severe stenosis of SFA bilateral. At this point the issue is the left leg so this patient will need left common femoral/external iliac endarterectomy patch angioplasty as well as superficial femoral artery balloon angioplasty with possible stent Patient will need basic cardiac input prior to surgery but at this point in absence of surgery the distal wound will not heal adequately. Even with surgery patient has severe distal disease beyond trifurcation in the anterior posterior tibial arteries and peroneal artery and this is flow-limiting as well. There is no question however we got to improve the inflow as above-stated Patient is on Brilinta and should stay on it throughout the surgical course. He will in addition received heparin during the surgery 03/01/17 Patient doing well at this time Combination of clinical findings and CTA is described above in the reveals bilateral severe vascular occlusive disease. Patient is scheduled tomorrow for common femoral and external iliac endarterectomy followed by balloon angioplasty of the SFA I believe that this will be successful procedure without a need for femoropopliteal bypass but I will leave this as a last resort option In addition patient has diffuse small vessel disease beyond the trifurcation but there is no endovascular or open procedure that would fix that Halux to be amputated and treated as per podiatry Cardiology consult is greatly appreciated and a clear that this patient has significant risk of surgery with underlying coronary artery disease as well as low ejection fraction to start with 03/03/17 Patient status post revascularization of the left leg with the common femoral endarterectomy patch and superficial femoral artery balloon angioplasty Patient has severe distal trifurcation disease and the severe SFA vascular occlusive disease but this is being corrected now on the left side Patient now has a bounding pulse in his [place] pedis and strong posterior tibial Foot is warm Incision is clean and dry Patient can have podiatry surgery any time from my point CLAIRE Sexton Transferred to floor Out of bed and ambulate as tolerated At some point in the future may be month or month and a half from now patient will need right sided reconstruction and also right carotid endarterectomy considering that he has a total left occlusion and significant right-sided symptomatic stenosis 03/04/17 Status post revascularization of the left leg Incision is clean and dry patient is bounding Doppler pulse in the popliteal artery , dorsalis pedis and posterior tibial arteries Is warm and well perfused Proceed with hallux amputation as per podiatry. Dr. Eid will be back tomorrow Objective: Vital Signs Date Time Temp Pulse Resp B/P (MAP) Pulse Ox O2 Delivery O2 Flow Rate FiO2 03/04/17 09:13 98 21 03/04/17 08:00 97.5 59 12 109/65 (80) 100 03/04/17 04:00 97.7 62 22 100/55 (70) 99 03/04/17 00:00 65 22 106/60 (75) 100 03/03/17 21:14 Nasal Cannula 3.00 03/03/17 20:00 97.7 89 24 112/66 (81) 99 03/03/17 16:00 97.6 73 14 107/53 (71) 99 03/03/17 12:00 97.5 75 19 111/67 (82) 98 Labs: Laboratory Tests Test 03/04/17 05:50 Blood Urea Nitrogen 33 MG/DL (7-18) Creatinine 1.20 MG/DL (0.60-1.30) Random Glucose 249 MG/DL (74-106) Calcium Level 8.4 MG/DL (8.5-10.1) Sodium Level 134 MEQ/L (136-145) Potassium Level 3.7 MEQ/L (3.5-5.1) Chloride Level 101 MEQ/L (98-107) Carbon Dioxide Level 19.1 MEQ/L (21.0-32.0) Anion Gap 14 MEQ/L (5-15) Estimat Glomerular Filtration Rate 62 ML/MIN (>89) Result Diagram: 03/03/17 0448 03/04/17 0550 (1) CAD (coronary artery disease) (2) PVD (peripheral vascular disease) (3) Stented coronary artery (4) Hx of CABG (5) Ischemic pain of left foot (6) Diabetes mellitus (7) Carotid artery occlusion (8) CHF (congestive heart failure) (9) Hyperlipidemia (10) Anemia Trisha Fleming MD Mar 04, 2017 10:44
--- NOTE | 2017-03-04 12:17 | HHI.PR ---
Subjective Remarks Follow up for gangrenous left great toe, left food diabetic foot infection. Patient is currently resting well. Per RN, he was somewhat agitated, confused overnight. No fever, chills. Objective Vitals Vital Signs Date Time Temp Pulse Resp B/P (MAP) Pulse Ox O2 Delivery O2 Flow Rate FiO2 03/04/17 09:13 98 21 03/04/17 08:00 97.5 59 12 109/65 (80) 100 03/04/17 04:00 97.7 62 22 100/55 (70) 99 03/04/17 00:00 65 22 106/60 (75) 100 03/03/17 21:14 Nasal Cannula 3.00 03/03/17 20:00 97.7 89 24 112/66 (81) 99 03/03/17 16:00 97.6 73 14 107/53 (71) 99 I/O 03/03/17 03/03/17 03/03/17 03/04/17 03/04/17 03/04/17 07:00 15:00 23:00 07:00 15:00 23:00 Intake Total 1528 ml 1962 ml Output Total 1270 ml 1775 ml 1450 ml Balance 258 ml 187 ml -1450 ml Intake Oral 960 ml 1500 ml IV Total 568 ml 462 ml Output Urine Total 1250 ml 1750 ml 1450 ml Drainage Total 20 ml 25 ml Bladder Scan Volume Amount 900 ml # Bowel Movements 0 1 Result Diagram: 03/03/17 0448 03/04/17 0550 Imaging Last Impressions Chest X-Ray 03/03/17 2132 Signed Impressions: Service Date/Time: Friday, March 03, 2017 21:30 - CONCLUSION: 1. Mild pulmonary vascular congestion bilaterally. 2. Cardiomegaly. Thomas Acosta MD Foot X-Ray 02/27/17 0000 Signed Impressions: Service Date/Time: Monday, February 27, 2017 14:20 - CONCLUSION: Soft tissue ulcer with subcutaneous emphysema. No evidence of osteomyelitis. Jase Sargent MD Aorta w/Runoff CTA 02/27/17 0000 Signed Impressions: Service Date/Time: Monday, February 27, 2017 17:08 - CONCLUSION: 1. Severe atherosclerotic disease of the abdominal aorta and its major branches and within both lower extremities. There is a moderate to severe stenosis of the midportion of the superficial femoral artery bilaterally but no vessel occlusion is identified. 2. Moderate size left pleural effusion. Justus Martinez MD Objective Remarks GENERAL: Sleeping, NAD. SKIN: Warm and dry. HEAD: Normocephalic. EYES: No scleral icterus. No injection or drainage. NECK: Supple, trachea midline. No JVD or lymphadenopathy. CARDIOVASCULAR: Regular rate and rhythm without murmurs, gallops, or rubs. RESPIRATORY: Breath sounds equal bilaterally. No accessory muscle use. GASTROINTESTINAL: Abdomen soft, non-tender, nondistended. MUSCULOSKELETAL: No cyanosis, or edema. Left great toe tip area necrotic. BACK: Nontender without obvious deformity. No CVA tenderness. Procedures s/p revascularization of the left leg with the common femoral endarterectomy patch and superficial femoral artery balloon angioplasty A/P Assessment and Plan ischemic left foot with gangrene of the left great toe s/p status post revascularization of the left leg with the common femoral endarterectomy patch and superficial femoral artery balloon angioplasty Probable toe amputation by Podiatry. Dr. Eid will see patient on 2016. sepsis due to Cellulitis/Diabetic foot ulcer Continue IV Zosyn and Vancomycin blood cultures negative so far ID and podiatry following. CAD with ischemic cardiomyopathy previous CABG recent NSTEMI status post cardiac catheterization stent implantation 12/23 History of V. tach History of atrial fibrillation status post ablation Hypertension Severe left ventricular systolic dysfunction continue aspirin 81mg and Brilinta 90mg BID, Lipitor 80mg Continue coreg and losartan continue lasix and aldactone cardiology following. acute kidney injury Improved. Creatinine 2.12 --> 1.20. Type 2 DM Diabetic neuropathy Hold patient's metformin, glipizide and pioglitazone Accu-Cheks and insulin sliding scale Continue Levemir 10 units daily at bedtime Continue patient's home dose of gabapentin 100 mg by mouth 4 times a day Diabetic diet Anemia s/p PRBC transfusion- H/H now improved- will monitor Continue patient on home dose of ferrous sulfate 325 mg by mouth twice a day Hypothyroidism Continue patient on home dose of levothyroxine 25 g daily Full code. DVT prophylaxis; subq Heparin Philly Portillo DO Mar 04, 2017 12:16
[2017-03-04] MEDS: VANCOMYCIN INJ 1,750 MG in SODIUM CHLORID 0.9% 500 ML INJ 500 ML IV SCH (16:52)
[2017-03-04] MEDS: DEXMEDETOMIDINE INJ 1,000 MCG in SODIUM CHLOR 0.9% 250 ML INJ 240 ML IV PRN (20:21)
[2017-03-04] MEDS: INSULIN DETEMIR 100 UNITS/ML VIAL SQ SCH (20:22)
[2017-03-04] MEDS: EZETIMIBE 10 MG TAB PO SCH (20:23)
[2017-03-04] MEDS ORDERED: VENLAFAXINE HCL 75 MG TAB PO SCH (20:45)
[2017-03-04] MEDS: VENLAFAXINE HCL XR 75 MG CAP PO SCH (23:01)
[2017-03-05] VITALS (7 sets, daily range): BP systolic 90–122; BP diastolic 56–79; PULSE 62–72; RESP 19–28; TEMP 97–98.1; O2SAT 96–98
--- NOTE | 2017-03-05 00:52 | HHI.PR ---
Addendum to Inpatient Note Addendum Reason: Additional Documentation Additional Information Nursing called to notify about a 6 beat run of non-sustained, asymptomatic vtach. Patient with stable vitals and pulse oximetry. I have ordered STAT CBC , BMP, Mag, BNP, and Troponin I and will follow results. Esmer Tyson Mar 05, 2017 00:52
[2017-03-05] MEDS: PIPERACIL-TAZO 3.375 GM PREMIX 50 ML IV SCH ×4 (02:01→21:51)
[2017-03-05 02:16] LABS: AUTOMATED NEUTROPHIL # 15.7 TH/MM3 (1.8-7.7); BASOPHIL # 0.1 TH/MM3 (0-0.2); BASOPHIL % 0.3 % (0.0-2.0); EOSINOPHIL # 0.1 TH/MM3 (0-0.4); EOSINOPHIL % 0.4 % (0.0-4.0); HEMATOCRIT 29.7 % (39.0-51.0); HEMO FLAGS DIFF FINAL; LYMPH % 6.1 % (9.0-44.0); LYMPHOCYTE # 1.1 TH/MM3 (1.0-4.8); MEAN CELL VOLUME 82.3 FL (80.0-100.0); MEAN CORPUSCULAR HEMOGLOBIN 27.6 PG (27.0-34.0); MEAN CORPUSCULAR HGB CONC 33.6 % (32.0-36.0); MONO % 4.2 % (0.0-8.0); PLATELET COUNT 382 TH/MM3 (150-450); RED CELL DISTRIBUTION WIDTH 17.2 % (11.6-17.2); WHITE BLOOD COUNT 17.6 TH/MM3 (4.0-11.0)
[2017-03-05 02:33] LABS: BICARBONATE 21.2 MEQ/L (21.0-32.0); MAGNESIUM 2.1 MG/DL (1.5-2.5); POTASSIUM 3.6 MEQ/L (3.5-5.1)
[2017-03-05] MEDS ORDERED: POTASSIUM CHLORIDE 25 MEQ EFFERVESCENT TAB PO ONE (03:15)
[2017-03-05] MEDS ORDERED: POTASSIUM CHLOR 20 MEQ PREMIX 100 ML IV ONE (03:15)
--- NOTE | 2017-03-05 03:46 | RADRPT ---
EXAM DATE/TIME: 03/05/2017 03:06 [facility] COMPARISON: CHEST SINGLE AP, March 03, 2017, 21:30. INDICATIONS : Shortness of breath MEDICAL HISTORY : Congestive heart failure. Diabetes mellitus type II. SURGICAL HISTORY : Pacemaker. CABG. ENCOUNTER: Subsequent ACUITY: 2 weeks PAIN SCORE: 8/10 LOCATION: Bilateral chest FINDINGS: Portable AP view of the chest demonstrates a normal size cardiac silhouette in this patient post medi an sternotomy. Left chest wall cardiac pacing device/AICD is present with biventricular leads. There are interstitial and airspace opacities bilaterally primarily in the mid and lower lung zones. These have slightly increased from the prior study. No pneumothorax is visualized. CONCLUSION: Bilateral interstitial and airspace opacity slightly increased from the prior study. The appearance a nd distribution favors pulmonary edema. Justus Martinez MD on March 05, 2017 at 3:44 Board Certified Radiologist. This report was verified electronically.
[2017-03-05] MEDS: LEVOTHYROXINE SODIUM 25 MCG TAB PO SCH (05:10)
[2017-03-05] MEDS: HEPARIN SODIUM - SQ 10,000 UNITS/ML VIAL SQ SCH ×3 (05:11→22:00)
[2017-03-05] MEDS: INSULIN ASPART SUPPLEMENTAL SCALE SQ SCH ×4 (05:13→21:00)
[2017-03-05] MEDS: REMOVE OLD PATCH T-DERMAL SCH (09:00)
[2017-03-05] MEDS: QUEtiapine FUMARATE 100 MG TAB PO SCH ×2 (09:06→21:00)
[2017-03-05] MEDS: TICAGRELOR 90 MG TAB PO SCH ×2 (09:06→21:58)
[2017-03-05] MEDS: ATORVASTATIN 80 MG TAB PO SCH (09:07)
[2017-03-05] MEDS: ASPIRIN 81 MG CHEW TAB PO SCH (09:07)
[2017-03-05] MEDS: GABAPENTIN 100 MG CAP PO SCH ×4 (09:07→21:51)
[2017-03-05] MEDS: NICOTINE 21 MG/24 HR PATCH T-DERMAL SCH (09:07)
[2017-03-05] MEDS: AZITHROMYCIN 250 MG TAB PO SCH (09:08)
[2017-03-05] MEDS: SPIRONOLACTONE 25 MG TAB PO SCH ×2 (09:08→17:13)
[2017-03-05] MEDS: FERROUS SULFATE 325 MG (65 MG ELEMENTAL IRON) TAB PO SCH ×2 (09:08→21:52)
--- NOTE | 2017-03-05 09:19 | MP ---
cc: DAXA FLEMING MD DATE OF SURGERY: 03/02/2017 PREOPERATIVE DIAGNOSES Ischemia of both legs, gangrene of the left greater toe with cellulitis of the foot, diabetes mellitus. POSTOPERATIVE DIAGNOSIS Ischemia of both legs, gangrene of the left greater toe with cellulitis of the foot, diabetes mellitus. OPERATIVE PROCEDURE Left common femoral endarterectomy, patch angioplasty, left SFA, endovascular balloon angioplasty and runoff x3. SURGEON Dr. Fleming. ANESTHESIA General. ESTIMATED BLOOD LOSS 700 ccs. PROCEDURE The patient was prepped and draped in the usual fashion. The left groin incision is made and deepened down to the level of the vessels, common femoral, deep and superficial femoral arteries are isolated. The patient is given 5000 units of heparin and then a microneedle and micro-wire inserted into the common femoral artery and attempted to advance the wire into the superficial femoral artery. This was unsuccessful due to the near total occlusion at the origin of the superficial femoral artery. After several attempts this approach was abandoned and the Satinsky clamp is placed proximally on the external iliac artery and then profunda clamp and the deep femoral artery vessels opened longitudinal with Wang scissors. There is a huge plaque in the vessel which is dissected in media plane. Part of the plaque nearly completely occludes the origin of superficial femoral artery but only about 1/2 inch length. The rest of the plaque is in the common femoral artery. Profundoplasty is carried out as well at the same time and plaque removed. Now under direct vision the #6 sheath is placed in superficial femoral artery with ease and then Glidewire advanced down under fluoroscopy. The arteriogram is obtained through the sheath which reveals very poor flow to the superficial femoral artery which multiple levels of the stenosis more prominent in mid SFA and proximally. Distal SFA actually looks pretty okay as it goes into popliteal. A Russo Angiocath was now advanced down and another arteriogram is obtained from the popliteal down revealing severe trifurcation disease as noted on the CT scan a few days before confirming the patient has some collateral flow and for most part interrupted all three vessels with reconstitution and multiple areas of stenosis and occlusion consistent with severe diabetes mellitus. Russo catheter is now withdrawn and then over the Glidewire a 200 x 5 mm balloon is introduced and inflated. It is advanced a little more distally and then pulled up proximally. Balloon is inflated very, very carefully over about 10 minute period in order to prevent any dissection in this vessel. Once this is completed the completion arteriogram is obtained and there is a great flow in the SFA. Endovascular structures are now withdrawn and removed and then vessel was irrigated with saline. There are some clots noted in the area. The patient is given therefore 2000 units of heparin more and ACT still remain low. Therefore the patient is given 3000 units heparin more, now we are up to 10,000 units of heparin and ACT is only about 212. The patient may have some resistance to heparin or some deficiency of antithrombin III which is not known from before. Nonetheless, at this point clots are gone. A green #3 Gonsalo is now passed in the common femoral artery and no clots obtained. There is excellent brisk flow from the top down once the Satinsky clamp is flashed. 1-cm x 8-cm patch is now sewn in the common femoral artery with running 6-0 Prolene, repairing the vessel as a form of patch angioplasty. Blood flow is now reestablished in usual order and fashion and the patient immediately has excellent brisk pulse in his dorsalis pedis on the left-side and foot warms up. The area is irrigated with saline. A 7 flat MAJO laid in the area and incision closed with 2-0 Vicryl in layers and subcuticular 4-0 Monocryl, benzoin and Steri-Strips applied. The patient tolerated the procedure well, taken to the operating room in stable condition with nice well-perfused leg. It should be noted that the procedure had to be stopped twice because of high humidity in the room. Daxa BEASLEY /5:01 PM /8:46 AM
--- NOTE | 2017-03-05 11:05 | HHI.PR ---
Subjective Remarks Medicine last night noted. Had positive troponins. To see Dr. Eid today will need surgery prior to discharge Recall cardiology regarding positive troponins We'll try to stagger blood pressure medications Discussed with patient and RN and family Objective Vitals Vital Signs Date Time Temp Pulse Resp B/P (MAP) Pulse Ox O2 Delivery O2 Flow Rate FiO2 03/05/17 04:00 98.0 62 19 103/63 (76) 96 03/05/17 00:00 97.4 64 21 112/71 (85) 96 03/04/17 20:00 98.5 68 22 113/62 (79) 97 03/04/17 16:00 97.6 68 16 104/56 (72) 97 03/04/17 12:00 97.6 65 16 106/59 (75) 96 I/O 03/04/17 03/04/17 03/04/17 03/05/17 03/05/17 03/05/17 07:00 15:00 23:00 07:00 15:00 23:00 Intake Total 1446 ml 1871 ml Output Total 1450 ml 2850 ml 1871 ml Balance -1450 ml -1404 ml 0 ml Intake Oral 960 ml 1250 ml IV Total 486 ml 621 ml Output Urine Total 1450 ml 2850 ml 1871 ml Bladder Scan Volume Amount 900 ml # Bowel Movements 0 0 Result Diagram: 03/05/17 0200 03/05/17 0200 Other Results Laboratory Tests Test 03/02/17 14:00 03/03/17 04:48 03/03/17 16:18 03/03/17 21:50 Hemoglobin 10.2 GM/DL 11.7 GM/DL Hematocrit 31.3 % 35.3 % White Blood Count 21.4 TH/MM3 Red Blood Count 4.25 MIL/MM3 Mean Corpuscular Volume 83.0 FL Mean Corpuscular Hemoglobin 27.5 PG Mean Corpuscular Hemoglobin Concent 33.2 % Red Cell Distribution Width 17.1 % Platelet Count 369 TH/MM3 Mean Platelet Volume 7.3 FL Neutrophils (%) (Auto) 94.8 % Lymphocytes (%) (Auto) 1.8 % Monocytes (%) (Auto) 3.2 % Eosinophils (%) (Auto) 0.0 % Basophils (%) (Auto) 0.2 % Neutrophils # (Auto) 20.3 TH/MM3 Lymphocytes # (Auto) 0.4 TH/MM3 Monocytes # (Auto) 0.7 TH/MM3 Eosinophils # (Auto) 0.0 TH/MM3 Basophils # (Auto) 0.0 TH/MM3 CBC Comment DIFF FINAL Differential Comment Blood Urea Nitrogen 32 MG/DL Creatinine 1.51 MG/DL Random Glucose 279 MG/DL Calcium Level 8.4 MG/DL Sodium Level 132 MEQ/L Potassium Level 3.9 MEQ/L Chloride Level 102 MEQ/L Carbon Dioxide Level 16.8 MEQ/L Anion Gap 13 MEQ/L Estimat Glomerular Filtration Rate 47 ML/MIN Vancomycin Level Trough 16.1 MCG/ML Blood Gas Puncture Site RT RADIAL Blood Gas Patient Temperature 98.6 Blood Gas HCO3 18 mmol/L Blood Gas Base Excess -5.0 mmol/L Blood Gas Oxygen Saturation 98 % Arterial Blood pH 7.48 Arterial Blood Partial Pressure CO2 25 mmHg Arterial Blood Partial Pressure O2 109 mmHg Arterial Blood Oxygen Content 13.4 Vol % Arterial Blood Carboxyhemoglobin 1.3 % Arterial Blood Methemoglobin 0.0 % Blood Gas Hemoglobin 9.7 G/DL Oxygen Delivery Device NASAL CANNULA Blood Gas Liter Flow 3 L/M Test 03/04/17 05:50 03/04/17 13:58 03/05/17 02:00 Blood Urea Nitrogen 33 MG/DL 30 MG/DL Creatinine 1.20 MG/DL 1.14 MG/DL Random Glucose 249 MG/DL 207 MG/DL Calcium Level 8.4 MG/DL 8.4 MG/DL Sodium Level 134 MEQ/L 136 MEQ/L Potassium Level 3.7 MEQ/L 3.6 MEQ/L Chloride Level 101 MEQ/L 105 MEQ/L Carbon Dioxide Level 19.1 MEQ/L 21.2 MEQ/L Anion Gap 14 MEQ/L 10 MEQ/L Estimat Glomerular Filtration Rate 62 ML/MIN 65 ML/MIN Vancomycin Level Trough 17.5 MCG/ML White Blood Count 17.6 TH/MM3 Red Blood Count 3.60 MIL/MM3 Hemoglobin 10.0 GM/DL Hematocrit 29.7 % Mean Corpuscular Volume 82.3 FL Mean Corpuscular Hemoglobin 27.6 PG Mean Corpuscular Hemoglobin Concent 33.6 % Red Cell Distribution Width 17.2 % Platelet Count 382 TH/MM3 Mean Platelet Volume 7.2 FL Neutrophils (%) (Auto) 89.0 % Lymphocytes (%) (Auto) 6.1 % Monocytes (%) (Auto) 4.2 % Eosinophils (%) (Auto) 0.4 % Basophils (%) (Auto) 0.3 % Neutrophils # (Auto) 15.7 TH/MM3 Lymphocytes # (Auto) 1.1 TH/MM3 Monocytes # (Auto) 0.7 TH/MM3 Eosinophils # (Auto) 0.1 TH/MM3 Basophils # (Auto) 0.1 TH/MM3 CBC Comment DIFF FINAL Differential Comment Magnesium Level 2.1 MG/DL Troponin I 0.12 NG/ML B-Type Natriuretic Peptide 1091 PG/ML Imaging Last Impressions Chest X-Ray 03/05/17 0000 Signed Impressions: Service Date/Time: Sunday, March 05, 2017 03:06 - CONCLUSION: Bilateral interstitial and airspace opacity slightly increased from the prior study. The appearance and distribution favors pulmonary edema. Justus Martinez MD Foot X-Ray 02/27/17 0000 Signed Impressions: Service Date/Time: Monday, February 27, 2017 14:20 - CONCLUSION: Soft tissue ulcer with subcutaneous emphysema. No evidence of osteomyelitis. Jase Sargent MD Aorta w/Runoff CTA 02/27/17 0000 Signed Impressions: Service Date/Time: Monday, February 27, 2017 17:08 - CONCLUSION: 1. Severe atherosclerotic disease of the abdominal aorta and its major branches and within both lower extremities. There is a moderate to severe stenosis of the midportion of the superficial femoral artery bilaterally but no vessel occlusion is identified. 2. Moderate size left pleural effusion. Justus Martinez MD Objective Remarks GENERAL: Awake alert and oriented talkative and cooperative in no acute distress SKIN: Warm and dry. Left lower extremity is swollen and erythematous tenderness in foot also has the wound wound HEAD: Atraumatic. Normocephalic. EYES: Pupils equal and round. No scleral icterus. No injection or drainage. Extraocular muscles grossly intact ENT: No nasal bleeding or discharge. Mucous membranes pink and moist. Tongue is midline NECK: Trachea midline. No JVD. Neck is supple CARDIOVASCULAR: Regular rate and rhythm. S1-S2 no S3 or S4 no heave or thrill or rub or gallop RESPIRATORY: No accessory muscle use. Clear to auscultation. Breath sounds equal bilaterally. Coarse breath sounds bilaterally worse at bases GASTROINTESTINAL: Abdomen soft, non-tender, nondistended. Hepatic and splenic margins not palpable. Obese MUSCULOSKELETAL: Extremities without clubbing, cyanosis, or edema. No obvious deformities. Left lower extremity with swelling and erythema and tenderness left foot dressed NEUROLOGICAL: Awake and alert. No obvious cranial nerve deficits. Motor grossly within normal limits. Five out of 5 muscle strength in the arms and legs. Normal speech. PSYCHIATRIC: Appropriate mood and affect; insight and judgment normal. Procedures s/p revascularization of the left leg with the common femoral endarterectomy patch and superficial femoral artery balloon angioplasty Medications and IVs Current Medications Vancomycin HCl 1000 mg/Sodium Chloride 250 ml @ 250 mls/hr ONCE ONCE IV Last administered on 02/27/17 16:42; Start 02/27/17 at 14:15; Stop 02/27/17 at 15:14 ; Status DC Piperacillin Sod/ Tazobactam Sod 50 ml @ 100 mls/hr ONCE ONCE IV Last administered on 02/27/17 14:56; Start 02/27/17 at 14:15; Stop 02/27/17 at 14:44 ; Status DC Morphine Sulfate (Morphine Inj) 4 mg ONCE ONCE IV PUSH Last administered on 14:56; Start 02/27/17 at 14:15; Stop 02/27/17 at 14:16; Status DC Ondansetron HCl (Zofran Inj) 4 mg ONCE ONCE IV PUSH Last administered on 14:53; Start 02/27/17 at 14:15; Stop 02/27/17 at 14:16; Status DC Dextrose (D50w (Vial) Inj) 50 ml UNSCH PRN IV HYPOGLYCEMIA-SEE COMMENTS; Start 02/27/17 at 16:45 Glucagon (Glucagon Inj) 1 mg UNSCH PRN OTHER HYPOGLYCEMIA-SEE COMMENTS; Start 02/27/17 at 16:45 Insulin Aspart (NovoLOG SUPPLEMENTAL SCALE) 1 ACHS SLIDING SCALE SQ Last administered on 03/05/17 05:13; Start 02/27/17 at 21:00 Piperacillin Sod/ Tazobactam Sod 50 ml @ 100 mls/hr Q6H IV Last administered on 03/05/17 09:08; Start 02/27/17 at 21:00 Pharmacy Profile Note 0 ml @ 0 mls/hr UNSCH OTHER ; Start 02/27/17 at 16:45 Aspirin (Aspirin Chew) 81 mg DAILY PO Last administered on 03/05/17 09:07; Start 02/28/17 at 09:00 Carvedilol (Coreg) 6.25 mg BID PO Last administered on 03/04/17 20:23; Start 02/27/17 at 21:00 Clonazepam (KlonoPIN) 0.5 mg BID PO Last administered on 03/03/17 19:59; Start 02/27/17 at 21:00; Stop 03/04/17 at 08:49; Status DC EZETIMIBE (Zetia) 10 mg HS PO Last administered on 03/04/17 20:23; Start 02/27 at 21:00 Ferrous Sulfate (Ferrous Sulfate) 325 mg BID PO Last administered on 03/05/17 09:08; Start 02/27/17 at 21:00 Furosemide (Lasix) 80 mg BID PO Last administered on 03/01/17 20:05; Start at 21:00; Stop 03/01/17 at 20:26; Status DC Gabapentin (Neurontin) 100 mg QID PO Last administered on 03/05/17 09:07; Start 02/27/17 at 18:00 Levothyroxine Sodium (Synthroid) 25 mcg DAILY@0600 PO Last administered on 03/05 05:10; Start 02/28/17 at 06:00 Losartan Potassium (Cozaar) 25 mg DAILY PO Last administered on 03/04/17 08:47 ; Start 02/28/17 at 09:00 Spironolactone (Aldactone) 25 mg BIDPC PO Last administered on 03/05/17 09:08 ; Start 02/27/17 at 18:00; Status Future hold Ticagrelor (Brilinta) 90 mg BID PO Last administered on 03/05/17 09:06; Start 02/27/17 at 21:00 Non-Formulary Medication 40 mg HS PO ; Start 02/27/17 at 21:00; Status UNV Acetaminophen/ Hydrocodone Bitart ([place] 5-325 Mg) 1 tab Q4H PRN PO PAIN 1-5 Last administered on 02/28/17 04:43; Start 02/27/17 at 19:00 Hydromorphone HCl (Dilaudid Pf Inj) 0.5 mg Q4H PRN IV PUSH PAIN 6-10 Last administered on 02/28/17 00:15; Start 02/27/17 at 19:00; Stop 02/28/17 at 09:51 ; Status DC Pravastatin Sodium (Pravachol) 80 mg HS PO Last administered on 02/27/17 23:53 ; Start 02/27/17 at 21:00; Stop 02/28/17 at 16:41; Status DC Vancomycin HCl 1000 mg/Sodium Chloride 250 ml @ 250 mls/hr ONCE ONCE IV Last administered on 02/28/17 00:12; Start 02/27/17 at 21:00; Stop 02/27/17 at 21:59 ; Status DC Vancomycin HCl 1750 mg/Sodium Chloride 517.5 ml @ 257.5 mls/ hr Q24H IV ; Start 02/28/17 at 21:00; Stop 03/01/17 at 13:37; Status DC Miscellaneous Information SPECIFIC LAB TO BE MARIO... ONCE ONCE .XX ; Start 03/02 at 20:45; Stop 03/02/17 at 20:46; Status Cancel Hydromorphone HCl (Dilaudid Pf Inj) 1 mg Q4H PRN IV PUSH BREAKTHROUGH PAIN; Start 02/28/17 at 11:00 Acetaminophen/ Hydrocodone Bitart ([place] 5-325 Mg) 2 tab Q4H PRN PO PAIN 6-10 Last administered on 03/02/17 19:36; Start 02/28/17 at 11:00 Atorvastatin Calcium (Lipitor) 80 mg DAILY PO Last administered on 03/05/17 09 :07; Start 03/01/17 at 09:00 Sodium Chloride 250 ml @ 15 mls/hr ONCE ONCE IV Last administered on 21:30; Start 02/28/17 at 17:30; Stop 03/01/17 at 10:09; Status DC Furosemide (Lasix Inj) 20 mg ONCE ONCE IV Last administered on 03/01/17 01:36 ; Start 02/28/17 at 17:30; Stop 02/28/17 at 17:32; Status DC Cefazolin Sodium/ Dextrose 50 ml @ 100 mls/hr SUPERMARKET MANAGER IV ; Start 03/01/17 at 10:00; Stop 03/04/17 at 09:59; Status DC Sodium Chloride 250 ml @ 15 mls/hr ONCE ONCE IV Last administered on 13:20; Start 03/01/17 at 12:30; Stop 03/02/17 at 05:09; Status DC Furosemide (Lasix Inj) 20 mg UNSCH X1 PRN IV AFTER 1ST UNIT OF BLOOD Last administered on 03/01/17 17:13; Start 03/01/17 at 12:30; Stop 03/01/17 at 23:59 ; Status DC Vancomycin HCl 1750 mg/Sodium Chloride 517.5 ml @ 257.5 mls/ hr Q24H IV Last administered on 03/04/17 16:52; Start 03/01/17 at 16:00 Miscellaneous Information SPECIFIC LAB TO BE DRAWN:VANCOMYCIN TROUGH DATE TO... ONCE ONCE .XX ; Start 03/03/17 at 15:45; Stop 03/03/17 at 15:46; Status DC Azithromycin (Zithromax) 500 mg ONCE ONCE PO Last administered on 03/01/17 20 :07; Start 03/01/17 at 20:00; Stop 03/01/17 at 20:02; Status DC Azithromycin (Zithromax) 250 mg DAILY PO Last administered on 03/05/17 09:08; Start 03/02/17 at 09:00 Furosemide (Lasix Inj) 20 mg UNSCH X1 PRN IV PUSH AFTER 2ND UNIT OF PRBC Last administered on 03/02/17 01:09; Start 03/01/17 at 20:30; Stop 03/02/17 at 16:00 ; Status DC Furosemide (Lasix) 40 mg ONCE ONCE PO Last administered on 03/01/17 21:00; Start 03/01/17 at 21:00; Stop 03/01/17 at 21:01; Status DC Furosemide (Lasix) 80 mg BID PO ; Start 03/02/17 at 09:00; Stop 03/02/17 at 09: 00; Status DC Lactated Ringer's 1,000 ml @ 30 mls/hr Q24H PRN IV SEE LABEL COMMENTS; Start at 00:30; Stop 03/05/17 at 00:29; Status DC Povidone Iodine (Betadine 5% Antisepsis Kit) 1 applic SUPERMARKET MANAGER PRN EACH NARE SEE LABEL COMMENTS; Start 03/02/17 at 00:30; Stop 03/05/17 at 00:29; Status DC Chlorhexidine Gluconate (Chlorhexidine 2% Cloth) 3 pack SUPERMARKET MANAGER PRN TOPICAL SEE LABEL COMMENTS; Start 03/02/17 at 00:30; Stop 03/05/17 at 00:29; Status DC Furosemide (Lasix) 40 mg DAILY PO Last administered on 03/04/17 08:43; Start 03/03/17 at 09:00 Heparin Sodium (Porcine) (Heparin Inj) 10,000 units STK-MED ONCE .ROUTE Last administered on 03/02/17 12:27; Start 03/02/17 at 09:53; Stop 03/02/17 at 09:54 ; Status DC Acetaminophen 100 ml @ As Directed STK-MED ONCE IV ; Start 03/02/17 at 09:56; Stop 03/02/17 at 09:57; Status DC Midazolam HCl (Versed Inj) 2 mg STK-MED ONCE .ROUTE ; Start 03/02/17 at 09:57; Stop 03/02/17 at 09:58; Status DC Famotidine (Pepcid Inj) 20 mg STK-MED ONCE .ROUTE ; Start 03/02/17 at 09:57; Stop 03/02/17 at 09:58; Status DC Sugammadex Sodium (Bridion Inj) 200 mg STK-MED ONCE IV PUSH ; Start 03/02/17 at 09:57; Stop 03/02/17 at 09:58; Status DC Fentanyl Citrate (fentaNYL INJ) 250 mcg STK-MED ONCE .ROUTE ; Start 03/02/17 at 10:00; Stop 03/02/17 at 10:01; Status DC Bupivacaine HCl/ Epinephrine Bitart (Sensorcaine-Epinephrine Pf 0.5% Inj) 30 ml STK-MED ONCE .ROUTE ; Start 03/02/17 at 11:51; Stop 03/02/17 at 11:52; Status DC Heparin Sodium (Porcine) (Heparin Inj) 10,000 units STK-MED ONCE .ROUTE Last administered on 03/02/17 12:03; Start 03/02/17 at 12:48; Stop 03/02/17 at 12:49 ; Status DC Iohexol 35 ml @ 0 mls/hr ONCE ONCE IV ; Start 03/02/17 at 15:21; Stop 03/02/17 at 15:45; Status DC Morphine Sulfate (*morphine INJ PERIprocedure ONLY) 8 mg STK-MED ONCE .ROUTE Last administered on 03/02/17 15:46; Start 03/02/17 at 15:46; Stop 03/02/17 at 15:47; Status DC Albuterol Sulfate (*ALBUTEROL NEB PERIprocedure ONLY) 2.5 mg STK-MED ONCE NEB Last administered on 03/02/17 15:47; Start 03/02/17 at 15:47; Stop 03/02/17 at 15:48; Status DC Phenylephrine HCl (Neosynephrine Inj) 40 mg STK-MED ONCE .ROUTE ; Start at 15:52; Stop 03/02/17 at 15:53; Status DC Bacitracin (Baciguent Oint) 15 applic STK-MED ONCE .ROUTE ; Start 03/02/17 at 16 :01; Stop 03/02/17 at 16:02; Status DC Morphine Sulfate (*morphine INJ PERIprocedure ONLY) 8 mg STK-MED ONCE .ROUTE Last administered on 03/02/17 16:26; Start 03/02/17 at 16:26; Stop 03/02/17 at 16:27; Status DC Haloperidol Lactate (Haldol Inj) 5 mg STK-MED ONCE .ROUTE Last administered on 03/02/17 16:40; Start 03/02/17 at 16:40; Stop 03/02/17 at 16:41; Status DC Haloperidol Lactate (Haldol Inj) 2.5 mg NOW ONCE IV PUSH ; Start 03/02/17 at 17 :00; Stop 03/02/17 at 17:01; Status DC Albuterol Sulfate (Albuterol Neb) 2.5 mg Q4HR NEB PRN INH SOB/WHEEZING Last administered on 03/03/17 21:12; Start 03/02/17 at 21:00 Heparin Sodium (Porcine) (Heparin Inj) 5,000 units Q8HR SQ Last administered on 03/05/17 05:11; Start 03/03/17 at 06:00 Insulin Detemir (Levemir Inj) 10 units HS SQ Last administered on 03/04/17 20: 22; Start 03/03/17 at 21:00 Haloperidol Lactate (Haldol Inj) 4 mg Q6H PRN IM AGITATION Last administered on 03/03/17 20:43; Start 03/03/17 at 14:30 Quetiapine Fumarate (SEROquel) 100 mg BID PO Last administered on 03/05/17 09: 06; Start 03/03/17 at 21:00 Dexmedetomidine HCl (Precedex Inj) 200 mcg STK-MED ONCE .ROUTE Last administered on 03/03/17 22:39; Start 03/03/17 at 22:39; Stop 03/03/17 at 22:40 ; Status DC Dexmedetomidine HCl (Precedex Inj) 200 mcg STK-MED ONCE .ROUTE Last administered on 03/03/17 23:17; Start 03/03/17 at 23:17; Stop 03/03/17 at 23:18 ; Status DC Dexmedetomidine HCl 200 mcg/ Sodium Chloride 50 ml @ 5.53 mls/hr TITRATE PRN IV Desired RASS Last administered on 03/04/17 00:55; Start 03/03/17 at 23:45; Stop 03/04/17 at 19:51; Status DC Nicotine (Habitrol 21 Mg Patch.24 Hr) 1 patch DAILY T-DERMAL Last administered on 03/05/17 09:07; Start 03/04/17 at 00:00 Miscellaneous Information 1 DAILY T-DERMAL Last administered on 03/04/17 09:00 ; Start 03/04/17 at 09:00 Clonazepam (KlonoPIN) 0.5 mg BID PRN PO Anxiety; Start 03/04/17 at 09:00 Dexmedetomidine HCl 1000 mcg/ Sodium Chloride 250 ml @ 5.53 mls/hr TITRATE PRN IV Desired RASS Last administered on 03/04/17 20:21; Start 03/04/17 at 20: 00 Venlafaxine HCl (Effexor) 75 mg DAILY PO Last administered on 03/04/17 22:02; Start 03/04/17 at 20:45; Stop 03/04/17 at 22:08; Status DC Venlafaxine HCl (Effexor Xr) 75 mg DAILY PO Last administered on 03/04/17 23: 01; Start 03/04/17 at 22:15 Miscellaneous Information SPECIFIC LAB TO BE DRAWN:[facility]... ONCE ONCE .XX ; Start 03/05/17 at 15:45; Stop 03/05/17 at 15:46 Potassium Bicarb/ Potassium Chloride (K-Lyte Cl Eff) 25 meq ONCE ONCE PO Last administered on 03/05/17 03:18; Start 03/05/17 at 03:15; Stop 03/05/17 at 03:16; Status DC Potassium Chloride 100 ml @ 50 mls/hr ONCE ONCE IV Last administered on 03:18; Start 03/05/17 at 03:15; Stop 03/05/17 at 05:14; Status DC Urinary Catheter: Yes Assessment to: Continue Hernandez insert reason: Measure Accurate Output A/P Problem List: (1) CAD (coronary artery disease) ICD Code: I25.10 - Atherosclerotic heart disease of [place] coronary artery without angina pectoris (2) CHF (congestive heart failure) ICD Code: I50.9 - Heart failure, unspecified Status: Chronic (3) Hyperlipidemia ICD Code: E78.5 - Hyperlipidemia, unspecified Status: Chronic (4) PVD (peripheral vascular disease) ICD Code: I73.9 - Peripheral vascular disease, unspecified (5) Diabetes mellitus ICD Code: E11.9 - Type 2 diabetes mellitus without complications Status: Chronic (6) Ischemic pain of left foot ICD Code: M79.672 - Pain in left foot; I99.9 - Unspecified disorder of circulatory system Status: Acute (7) Diabetic foot ulcer ICD Code: E11.621 - Type 2 diabetes mellitus with foot ulcer; L97.509 - Non- pressure chronic ulcer of other part of unspecified foot with unspecified severity Status: Chronic (8) DM (diabetes mellitus) ICD Code: E11.9 - Type 2 diabetes mellitus without complications Status: Chronic (9) Left foot infection ICD Code: L08.9 - Local infection of the skin and subcutaneous tissue, unspecified Status: Acute (10) Hypothyroidism ICD Code: E03.9 - Hypothyroidism, unspecified Status: Chronic Assessment and Plan ischemic left foot with gangrene of the left great toe s/p status post revascularization of the left leg with the common femoral endarterectomy patch and superficial femoral artery balloon angioplasty Probable toe amputation by Podiatry. Dr. Eid will see patient on 2016. sepsis due to Cellulitis/Diabetic foot ulcer Continue IV Zosyn and Vancomycin blood cultures negative so far ID and podiatry following. CAD with ischemic cardiomyopathy previous CABG recent NSTEMI status post cardiac catheterization stent implantation 12/23 History of V. tach History of atrial fibrillation status post ablation Hypertension Severe left ventricular systolic dysfunction continue aspirin 81mg and Brilinta 90mg BID, Lipitor 80mg Continue coreg and losartan continue lasix and aldactone cardiology following. acute kidney injury Improved. Creatinine 2.12 --> 1.20. Type 2 DM Diabetic neuropathy Hold patient's metformin, glipizide and pioglitazone Accu-Cheks and insulin sliding scale Continue Levemir 10 units daily at bedtime Continue patient's home dose of gabapentin 100 mg by mouth 4 times a day Diabetic diet Anemia s/p PRBC transfusion- H/H now improved- will monitor Continue patient on home dose of ferrous sulfate 325 mg by mouth twice a day Hypothyroidism Continue patient on home dose of levothyroxine 25 g daily am labs Adjust timing of blood pressure meds Full code. DVT prophylaxis; subq Heparin Problem Qualifiers (1) Diabetic foot ulcer: Qualified Codes: E11.621 - Type 2 diabetes mellitus with foot ulcer; L97.529 - Non-pressure chronic ulcer of other part of left foot with unspecified severity Ronny Younger DO Mar 05, 2017 11:05
[2017-03-05] MEDS: VENLAFAXINE HCL XR 75 MG CAP PO SCH (11:13)
[2017-03-05] MEDS: FUROSEMIDE 40 MG TAB PO SCH (11:14)
[2017-03-05] MEDS: CARVEDILOL 6.25 MG TAB PO SCH ×2 (11:14→21:52)
--- NOTE | 2017-03-05 12:26 | PD.CAR.PN ---
CVT Progress Note Subjective/Hospital Course: Patient with gangrene of the left hallux and cellulitis of the left foot diabetes mellitus and A. fib Likely patient has suffered cardioarterial or arterial arterial embolism and trashed left foot CTA pending but I do believe the patient has appreciable degree of peripheral vascular disease that may require reconstruction and I believe he will have moderate stenosis in superficial femoral arteries with probably significant calcifications in the distal vessels beyond trifurcation. In addition patient has left internal carotid occlusion and hemodynamically significant right stenosis so this will have to be dealt with at some point as well Full consult dictated Thanks J 02/28/17 As above noted and described in consultation, patient severe peripheral vascular disease and the degree of narrowing is more than I actually expected. Patient has severe stenosis of distal external iliac arteries and bilateral common femoral arteries. Patient also has severe stenosis of SFA bilateral. At this point the issue is the left leg so this patient will need left common femoral/external iliac endarterectomy patch angioplasty as well as superficial femoral artery balloon angioplasty with possible stent Patient will need basic cardiac input prior to surgery but at this point in absence of surgery the distal wound will not heal adequately. Even with surgery patient has severe distal disease beyond trifurcation in the anterior posterior tibial arteries and peroneal artery and this is flow-limiting as well. There is no question however we got to improve the inflow as above-stated Patient is on Brilinta and should stay on it throughout the surgical course. He will in addition received heparin during the surgery 03/01/17 Patient doing well at this time Combination of clinical findings and CTA is described above in the reveals bilateral severe vascular occlusive disease. Patient is scheduled tomorrow for common femoral and external iliac endarterectomy followed by balloon angioplasty of the SFA I believe that this will be successful procedure without a need for femoropopliteal bypass but I will leave this as a last resort option In addition patient has diffuse small vessel disease beyond the trifurcation but there is no endovascular or open procedure that would fix that Halux to be amputated and treated as per podiatry Cardiology consult is greatly appreciated and a clear that this patient has significant risk of surgery with underlying coronary artery disease as well as low ejection fraction to start with 03/03/17 Patient status post revascularization of the left leg with the common femoral endarterectomy patch and superficial femoral artery balloon angioplasty Patient has severe distal trifurcation disease and the severe SFA vascular occlusive disease but this is being corrected now on the left side Patient now has a bounding pulse in his [place] pedis and strong posterior tibial Foot is warm Incision is clean and dry Patient can have podiatry surgery any time from my point CLAIRE Sexton Transferred to floor Out of bed and ambulate as tolerated At some point in the future may be month or month and a half from now patient will need right sided reconstruction and also right carotid endarterectomy considering that he has a total left occlusion and significant right-sided symptomatic stenosis 03/04/17 Status post revascularization of the left leg Incision is clean and dry patient is bounding Doppler pulse in the popliteal artery , dorsalis pedis and posterior tibial arteries Is warm and well perfused Proceed with hallux amputation as per podiatry. Dr. Eid will be back tomorrow 03/05/17 Incision is clean and dry and patient has bounding distal pulses in the left foot and foot is nice and warm Patient will undergo hallux amputation by Dr. Eid Nothing to add from my point Once patient recovers completely he will need right carotid endarterectomy considering that he has a total left-sided occlusion and right sided hemodynamically significant stenosis Objective: Vital Signs Date Time Temp Pulse Resp B/P (MAP) Pulse Ox O2 Delivery O2 Flow Rate FiO2 03/05/17 04:00 98.0 62 19 103/63 (76) 96 03/05/17 00:00 97.4 64 21 112/71 (85) 96 03/04/17 20:00 98.5 68 22 113/62 (79) 97 03/04/17 16:00 97.6 68 16 104/56 (72) 97 Labs: Laboratory Tests Test 03/05/17 02:00 White Blood Count 17.6 TH/MM3 (4.0-11.0) Red Blood Count 3.60 MIL/MM3 (4.50-5.90) Hemoglobin 10.0 GM/DL (13.0-17.0) Hematocrit 29.7 % (39.0-51.0) Mean Corpuscular Volume 82.3 FL (80.0-100.0) Mean Corpuscular Hemoglobin 27.6 PG (27.0-34.0) Mean Corpuscular Hemoglobin Concent 33.6 % (32.0-36.0) Red Cell Distribution Width 17.2 % (11.6-17.2) Platelet Count 382 TH/MM3 (150-450) Mean Platelet Volume 7.2 FL (7.0-11.0) Neutrophils (%) (Auto) 89.0 % (16.0-70.0) Lymphocytes (%) (Auto) 6.1 % (9.0-44.0) Monocytes (%) (Auto) 4.2 % (0.0-8.0) Eosinophils (%) (Auto) 0.4 % (0.0-4.0) Basophils (%) (Auto) 0.3 % (0.0-2.0) Neutrophils # (Auto) 15.7 TH/MM3 (1.8-7.7) Lymphocytes # (Auto) 1.1 TH/MM3 (1.0-4.8) Monocytes # (Auto) 0.7 TH/MM3 (0-0.9) Eosinophils # (Auto) 0.1 TH/MM3 (0-0.4) Basophils # (Auto) 0.1 TH/MM3 (0-0.2) CBC Comment DIFF FINAL Differential Comment Blood Urea Nitrogen 30 MG/DL (7-18) Creatinine 1.14 MG/DL (0.60-1.30) Random Glucose 207 MG/DL (74-106) Calcium Level 8.4 MG/DL (8.5-10.1) Magnesium Level 2.1 MG/DL (1.5-2.5) Sodium Level 136 MEQ/L (136-145) Potassium Level 3.6 MEQ/L (3.5-5.1) Chloride Level 105 MEQ/L (98-107) Carbon Dioxide Level 21.2 MEQ/L (21.0-32.0) Anion Gap 10 MEQ/L (5-15) Estimat Glomerular Filtration Rate 65 ML/MIN (>89) Troponin I 0.12 NG/ML (0.02-0.05) B-Type Natriuretic Peptide 1091 PG/ML (0-100) Result Diagram: 03/05/1719903/05/17199 (1) CAD (coronary artery disease) (2) PVD (peripheral vascular disease) (3) Stented coronary artery (4) Hx of CABG (5) Ischemic pain of left foot (6) Diabetes mellitus (7) Carotid artery occlusion (8) CHF (congestive heart failure) (9) Hyperlipidemia (10) Anemia Jazarevic,Slobodan MD Mar 05, 2017 12:26
--- NOTE | 2017-03-05 12:32 | PD.POD.CON ---
Patient Intake Chief Complaint dry gangrene left hallux Consult Requested by LÓPEZ Reason for Consult Surgical management and dry gangrene left hallux Primary Care Physician Kimi Snow MD History of Present Illness 61-year-old male who I saw on his last admission for an ulceration of the left hallux. Patient was discharged home and came back with increased pain and discoloration of the left hallux. The patient has severe peripheral vascular disease and underwent endovascular intervention by Dr. Gutierrez. Patient is now ready for amputation left hallux. Coded Allergies: cyclobenzaprine (Unverified Allergy, Severe, Flushing, 02/27/17) REDNESS lisinopril (Unverified Allergy, Unknown, Swelling, 02/27/17) ANGIOEDEMA Preferred Language to Discuss: Kinyarwanda Barriers to Learning: None Teaching Method: Discussion Vital Signs Date Time Temp Pulse Resp B/P (MAP) Pulse Ox O2 Delivery O2 Flow Rate FiO2 03/05/17 04:00 98.0 62 19 103/63 (76) 96 03/05/17 00:00 97.4 64 21 112/71 (85) 96 03/04/17 20:00 98.5 68 22 113/62 (79) 97 03/04/17 16:00 97.6 68 16 104/56 (72) 97 Pain scale used: 0-10 numeric scale Pain score: 1 Medications Current Medications Vancomycin HCl 1000 mg/Sodium Chloride 250 ml @ 250 mls/hr ONCE ONCE IV Last administered on 02/27/17 16:42; Start 02/27/17 at 14:15; Stop 02/27/17 at 15:14 ; Status DC Piperacillin Sod/ Tazobactam Sod 50 ml @ 100 mls/hr ONCE ONCE IV Last administered on 02/27/17 14:56; Start 02/27/17 at 14:15; Stop 02/27/17 at 14:44 ; Status DC Morphine Sulfate (Morphine Inj) 4 mg ONCE ONCE IV PUSH Last administered on 14:56; Start 02/27/17 at 14:15; Stop 02/27/17 at 14:16; Status DC Ondansetron HCl (Zofran Inj) 4 mg ONCE ONCE IV PUSH Last administered on 14:53; Start 02/27/17 at 14:15; Stop 02/27/17 at 14:16; Status DC Dextrose (D50w (Vial) Inj) 50 ml UNSCH PRN IV HYPOGLYCEMIA-SEE COMMENTS; Start 02/27/17 at 16:45 Glucagon (Glucagon Inj) 1 mg UNSCH PRN OTHER HYPOGLYCEMIA-SEE COMMENTS; Start 02/27/17 at 16:45 Insulin Aspart (NovoLOG SUPPLEMENTAL SCALE) 1 ACHS SLIDING SCALE SQ Last administered on 03/05/17 11:51; Start 02/27/17 at 21:00 Piperacillin Sod/ Tazobactam Sod 50 ml @ 100 mls/hr Q6H IV Last administered on 03/05/17 09:08; Start 02/27/17 at 21:00 Pharmacy Profile Note 0 ml @ 0 mls/hr UNSCH OTHER ; Start 02/27/17 at 16:45 Aspirin (Aspirin Chew) 81 mg DAILY PO Last administered on 03/05/17 09:07; Start 02/28/17 at 09:00 Carvedilol (Coreg) 6.25 mg BID PO Last administered on 03/05/17 11:14; Start 02/27/17 at 21:00 Clonazepam (KlonoPIN) 0.5 mg BID PO Last administered on 03/03/17 19:59; Start 02/27/17 at 21:00; Stop 03/04/17 at 08:49; Status DC EZETIMIBE (Zetia) 10 mg HS PO Last administered on 03/04/17 20:23; Start 02/27 at 21:00 Ferrous Sulfate (Ferrous Sulfate) 325 mg BID PO Last administered on 03/05/17 09:08; Start 02/27/17 at 21:00 Furosemide (Lasix) 80 mg BID PO Last administered on 03/01/17 20:05; Start at 21:00; Stop 03/01/17 at 20:26; Status DC Gabapentin (Neurontin) 100 mg QID PO Last administered on 03/05/17 09:07; Start 02/27/17 at 18:00 Levothyroxine Sodium (Synthroid) 25 mcg DAILY@0600 PO Last administered on 03/05 05:10; Start 02/28/17 at 06:00 Losartan Potassium (Cozaar) 25 mg DAILY PO Last administered on 03/04/17 08:47 ; Start 02/28/17 at 09:00; Stop 03/05/17 at 11:06; Status DC Spironolactone (Aldactone) 25 mg BIDPC PO Last administered on 03/05/17 09:08 ; Start 02/27/17 at 18:00; Status Future hold Ticagrelor (Brilinta) 90 mg BID PO Last administered on 03/05/17 09:06; Start 02/27/17 at 21:00 Non-Formulary Medication 40 mg HS PO ; Start 02/27/17 at 21:00; Status UNV Acetaminophen/ Hydrocodone Bitart ([place] 5-325 Mg) 1 tab Q4H PRN PO PAIN 1-5 Last administered on 02/28/17 04:43; Start 02/27/17 at 19:00 Hydromorphone HCl (Dilaudid Pf Inj) 0.5 mg Q4H PRN IV PUSH PAIN 6-10 Last administered on 02/28/17 00:15; Start 02/27/17 at 19:00; Stop 02/28/17 at 09:51 ; Status DC Pravastatin Sodium (Pravachol) 80 mg HS PO Last administered on 02/27/17 23:53 ; Start 02/27/17 at 21:00; Stop 02/28/17 at 16:41; Status DC Vancomycin HCl 1000 mg/Sodium Chloride 250 ml @ 250 mls/hr ONCE ONCE IV Last administered on 02/28/17 00:12; Start 02/27/17 at 21:00; Stop 02/27/17 at 21:59 ; Status DC Vancomycin HCl 1750 mg/Sodium Chloride 517.5 ml @ 257.5 mls/ hr Q24H IV ; Start 02/28/17 at 21:00; Stop 03/01/17 at 13:37; Status DC Miscellaneous Information SPECIFIC LAB TO BE MARIO... ONCE ONCE .XX ; Start 03/02 at 20:45; Stop 03/02/17 at 20:46; Status Cancel Hydromorphone HCl (Dilaudid Pf Inj) 1 mg Q4H PRN IV PUSH BREAKTHROUGH PAIN; Start 02/28/17 at 11:00 Acetaminophen/ Hydrocodone Bitart ([place] 5-325 Mg) 2 tab Q4H PRN PO PAIN 6-10 Last administered on 03/02/17 19:36; Start 02/28/17 at 11:00 Atorvastatin Calcium (Lipitor) 80 mg DAILY PO Last administered on 03/05/17 09 :07; Start 03/01/17 at 09:00 Sodium Chloride 250 ml @ 15 mls/hr ONCE ONCE IV Last administered on 21:30; Start 02/28/17 at 17:30; Stop 03/01/17 at 10:09; Status DC Furosemide (Lasix Inj) 20 mg ONCE ONCE IV Last administered on 03/01/17 01:36 ; Start 02/28/17 at 17:30; Stop 02/28/17 at 17:32; Status DC Cefazolin Sodium/ Dextrose 50 ml @ 100 mls/hr DIESEL [employer]INE PIPE FITTER IV ; Start 03/01/17 at 10:00; Stop 03/04/17 at 09:59; Status DC Sodium Chloride 250 ml @ 15 mls/hr ONCE ONCE IV Last administered on 13:20; Start 03/01/17 at 12:30; Stop 03/02/17 at 05:09; Status DC Furosemide (Lasix Inj) 20 mg UNSCH X1 PRN IV AFTER 1ST UNIT OF BLOOD Last administered on 03/01/17 17:13; Start 03/01/17 at 12:30; Stop 03/01/17 at 23:59 ; Status DC Vancomycin HCl 1750 mg/Sodium Chloride 517.5 ml @ 257.5 mls/ hr Q24H IV Last administered on 03/04/17 16:52; Start 03/01/17 at 16:00 Miscellaneous Information SPECIFIC LAB TO BE DRAWN:VANCOMYCIN TROUGH DATE TO... ONCE ONCE .XX ; Start 03/03/17 at 15:45; Stop 03/03/17 at 15:46; Status DC Azithromycin (Zithromax) 500 mg ONCE ONCE PO Last administered on 03/01/17 20 :07; Start 03/01/17 at 20:00; Stop 03/01/17 at 20:02; Status DC Azithromycin (Zithromax) 250 mg DAILY PO Last administered on 03/05/17 09:08; Start 03/02/17 at 09:00 Furosemide (Lasix Inj) 20 mg UNSCH X1 PRN IV PUSH AFTER 2ND UNIT OF PRBC Last administered on 03/02/17 01:09; Start 03/01/17 at 20:30; Stop 03/02/17 at 16:00 ; Status DC Furosemide (Lasix) 40 mg ONCE ONCE PO Last administered on 03/01/17 21:00; Start 03/01/17 at 21:00; Stop 03/01/17 at 21:01; Status DC Furosemide (Lasix) 80 mg BID PO ; Start 03/02/17 at 09:00; Stop 03/02/17 at 09: 00; Status DC Lactated Ringer's 1,000 ml @ 30 mls/hr Q24H PRN IV SEE LABEL COMMENTS; Start at 00:30; Stop 03/05/17 at 00:29; Status DC Povidone Iodine (Betadine 5% Antisepsis Kit) 1 applic DIESEL [employer] PIPE FITTER PRN EACH NARE SEE LABEL COMMENTS; Start 03/02/17 at 00:30; Stop 03/05/17 at 00:29; Status DC Chlorhexidine Gluconate (Chlorhexidine 2% Cloth) 3 pack DIES[employer] PIPE FITTER PRN TOPICAL SEE LABEL COMMENTS; Start 03/02/17 at 00:30; Stop 03/05/17 at 00:29; Status DC Furosemide (Lasix) 40 mg DAILY PO Last administered on 03/05/17 11:14; Start 03/03/17 at 09:00 Heparin Sodium (Porcine) (Heparin Inj) 10,000 units STK-MED ONCE .ROUTE Last administered on 03/02/17 12:27; Start 03/02/17 at 09:53; Stop 03/02/17 at 09:54 ; Status DC Acetaminophen 100 ml @ As Directed STK-MED ONCE IV ; Start 03/02/17 at 09:56; Stop 03/02/17 at 09:57; Status DC Midazolam HCl (Versed Inj) 2 mg STK-MED ONCE .ROUTE ; Start 03/02/17 at 09:57; Stop 03/02/17 at 09:58; Status DC Famotidine (Pepcid Inj) 20 mg STK-MED ONCE .ROUTE ; Start 03/02/17 at 09:57; Stop 03/02/17 at 09:58; Status DC Sugammadex Sodium (Bridion Inj) 200 mg STK-MED ONCE IV PUSH ; Start 03/02/17 at 09:57; Stop 03/02/17 at 09:58; Status DC Fentanyl Citrate (fentaNYL INJ) 250 mcg STK-MED ONCE .ROUTE ; Start 03/02/17 at 10:00; Stop 03/02/17 at 10:01; Status DC Bupivacaine HCl/ Epinephrine Bitart (Sensorcaine-Epinephrine Pf 0.5% Inj) 30 ml STK-MED ONCE .ROUTE ; Start 03/02/17 at 11:51; Stop 03/02/17 at 11:52; Status DC Heparin Sodium (Porcine) (Heparin Inj) 10,000 units STK-MED ONCE .ROUTE Last administered on 03/02/17 12:03; Start 03/02/17 at 12:48; Stop 03/02/17 at 12:49 ; Status DC Iohexol 35 ml @ 0 mls/hr ONCE ONCE IV ; Start 03/02/17 at 15:21; Stop 03/02/17 at 15:45; Status DC Morphine Sulfate (*morphine INJ PERIprocedure ONLY) 8 mg STK-MED ONCE .ROUTE Last administered on 03/02/17 15:46; Start 03/02/17 at 15:46; Stop 03/02/17 at 15:47; Status DC Albuterol Sulfate (*ALBUTEROL NEB PERIprocedure ONLY) 2.5 mg STK-MED ONCE NEB Last administered on 03/02/17 15:47; Start 03/02/17 at 15:47; Stop 03/02/17 at 15:48; Status DC Phenylephrine HCl (Neosynephrine Inj) 40 mg STK-MED ONCE .ROUTE ; Start at 15:52; Stop 03/02/17 at 15:53; Status DC Bacitracin (Baciguent Oint) 15 applic STK-MED ONCE .ROUTE ; Start 03/02/17 at 16 :01; Stop 03/02/17 at 16:02; Status DC Morphine Sulfate (*morphine INJ PERIprocedure ONLY) 8 mg STK-MED ONCE .ROUTE Last administered on 03/02/17 16:26; Start 03/02/17 at 16:26; Stop 03/02/17 at 16:27; Status DC Haloperidol Lactate (Haldol Inj) 5 mg STK-MED ONCE .ROUTE Last administered on 03/02/17 16:40; Start 03/02/17 at 16:40; Stop 03/02/17 at 16:41; Status DC Haloperidol Lactate (Haldol Inj) 2.5 mg NOW ONCE IV PUSH ; Start 03/02/17 at 17 :00; Stop 03/02/17 at 17:01; Status DC Albuterol Sulfate (Albuterol Neb) 2.5 mg Q4HR NEB PRN INH SOB/WHEEZING Last administered on 03/03/17 21:12; Start 03/02/17 at 21:00 Heparin Sodium (Porcine) (Heparin Inj) 5,000 units Q8HR SQ Last administered on 03/05/17 05:11; Start 03/03/17 at 06:00 Insulin Detemir (Levemir Inj) 10 units HS SQ Last administered on 03/04/17 20: 22; Start 03/03/17 at 21:00 Haloperidol Lactate (Haldol Inj) 4 mg Q6H PRN IM AGITATION Last administered on 03/03/17 20:43; Start 03/03/17 at 14:30 Quetiapine Fumarate (SEROquel) 100 mg BID PO Last administered on 03/05/17 09: 06; Start 03/03/17 at 21:00 Dexmedetomidine HCl (Precedex Inj) 200 mcg STK-MED ONCE .ROUTE Last administered on 03/03/17 22:39; Start 03/03/17 at 22:39; Stop 03/03/17 at 22:40 ; Status DC Dexmedetomidine HCl (Precedex Inj) 200 mcg STK-MED ONCE .ROUTE Last administered on 03/03/17 23:17; Start 03/03/17 at 23:17; Stop 03/03/17 at 23:18 ; Status DC Dexmedetomidine HCl 200 mcg/ Sodium Chloride 50 ml @ 5.53 mls/hr TITRATE PRN IV Desired RASS Last administered on 03/04/17 00:55; Start 03/03/17 at 23:45; Stop 03/04/17 at 19:51; Status DC Nicotine (Habitrol 21 Mg Patch.24 Hr) 1 patch DAILY T-DERMAL Last administered on 03/05/17 09:07; Start 03/04/17 at 00:00 Miscellaneous Information 1 DAILY T-DERMAL Last administered on 03/05/17 09:00 ; Start 03/04/17 at 09:00 Clonazepam (KlonoPIN) 0.5 mg BID PRN PO Anxiety; Start 03/04/17 at 09:00 Dexmedetomidine HCl 1000 mcg/ Sodium Chloride 250 ml @ 5.53 mls/hr TITRATE PRN IV Desired RASS Last administered on 03/04/17 20:21; Start 03/04/17 at 20: 00 Venlafaxine HCl (Effexor) 75 mg DAILY PO Last administered on 03/04/17 22:02; Start 03/04/17 at 20:45; Stop 03/04/17 at 22:08; Status DC Venlafaxine HCl (Effexor Xr) 75 mg DAILY PO Last administered on 03/05/17 11: 13; Start 03/04/17 at 22:15 Miscellaneous Information SPECIFIC LAB TO BE DRAWN:[place]... ONCE ONCE .XX ; Start 03/05/17 at 15:45; Stop 03/05/17 at 15:46 Potassium Bicarb/ Potassium Chloride (K-[place] Cl Eff) 25 meq ONCE ONCE PO Last administered on 03/05/17 03:18; Start 03/05/17 at 03:15; Stop 03/05/17 at 03:16; Status DC Potassium Chloride 100 ml @ 50 mls/hr ONCE ONCE IV Last administered on 03:18; Start 03/05/17 at 03:15; Stop 03/05/17 at 05:14; Status DC Losartan Potassium (Cozaar) 25 mg DAILY PO ; Start 03/06/17 at 12:00 Past, Family & Social History Past Medical History Endocrine: REPORTS HX OF: Diabetes mellitus Respiratory: REPORTS HX OF: Other respiratory history Cardiovascular: REPORTS HX OF: Atrial fibrillation, Heart failure, Hypertension , Peripheral vascular dz Genitourinary: REPORTS HX OF: Kidney disease Genetic/Metabolic: DENIES HX OF: Cystic fibrosis Past Surgical History Cardiovascular: REPORTS HX OF: Angioplasty, CABG surgery, Carotid endarterectomy, Coronary stent, Pacemaker Review of Systems Notes Height gangrene of the left hallux Constitutional: COMPLAINS OF: Pain Exam-Podiatry Constitutional General appearance: comfortable Nutritional status: overweight Orientation: alert and oriented x3 Dermatological Exam Skin Temp - Right: Within Normal Limits Skin Texture - Right: Within Normal Limits Skin Elasticity - Right: Within Normal Limits Skin Tugor - Right: Within Normal Limits Hair Growth - Right: Within Normal Limits Pigmentation - Right: Within Normal Limits Skin Temp - Left: Within Normal Limits Skin Texture - Left: Within Normal Limits Skin Elasticity - Left: Within Normal Limits Skin Tugor - Left: Within Normal Limits Hair Growth - Left: Within Normal Limits Pigmentation - Left: Within Normal Limits Vascular/Lymphatic Exam Details Dry gangrene left hallux R Dorsails Pedis: Doppler L Dorsails Pedis: Doppler R Posterior Tibial: Doppler L Posterior Tibial: Doppler Neurologic Exam Details Deferred Muscle Strength Dorsiflexion (Right): Normal Plantarflexion (Right): Normal Inversion (Right): Normal Eversion (Right): Normal Digital (Right): Normal Dorsiflexion (Left): Normal Plantarflexion (Left): Normal Inversion (Left): Normal Eversion (Left): Normal Digital (Left): Normal Foot Range of Motion Dorsiflexion (Right): Normal Plantarflexion (Right): Normal Inversion (Right): Normal Eversion (Right): Normal Digital (Right): Normal Dorsiflexion (Left): Normal Plantarflexion (Left): Normal Inversion (Left): Normal Eversion (Left): Normal Digital (Left): Normal Lab and Radiology Results Laboratory Laboratory Tests Test 03/05/17 02:00 White Blood Count 17.6 TH/MM3 Red Blood Count 3.60 MIL/MM3 Hemoglobin 10.0 GM/DL Hematocrit 29.7 % Mean Corpuscular Volume 82.3 FL Mean Corpuscular Hemoglobin 27.6 PG Mean Corpuscular Hemoglobin Concent 33.6 % Red Cell Distribution Width 17.2 % Platelet Count 382 TH/MM3 Mean Platelet Volume 7.2 FL Neutrophils (%) (Auto) 89.0 % Lymphocytes (%) (Auto) 6.1 % Monocytes (%) (Auto) 4.2 % Eosinophils (%) (Auto) 0.4 % Basophils (%) (Auto) 0.3 % Neutrophils # (Auto) 15.7 TH/MM3 Lymphocytes # (Auto) 1.1 TH/MM3 Monocytes # (Auto) 0.7 TH/MM3 Eosinophils # (Auto) 0.1 TH/MM3 Basophils # (Auto) 0.1 TH/MM3 CBC Comment DIFF FINAL Differential Comment Laboratory Tests Test 03/04/17 05:50 03/05/17 02:00 Blood Urea Nitrogen 33 MG/DL 30 MG/DL Creatinine 1.20 MG/DL 1.14 MG/DL Random Glucose 249 MG/DL 207 MG/DL Calcium Level 8.4 MG/DL 8.4 MG/DL Sodium Level 134 MEQ/L 136 MEQ/L Potassium Level 3.7 MEQ/L 3.6 MEQ/L Chloride Level 101 MEQ/L 105 MEQ/L Carbon Dioxide Level 19.1 MEQ/L 21.2 MEQ/L Anion Gap 14 MEQ/L 10 MEQ/L Estimat Glomerular Filtration Rate 62 ML/MIN 65 ML/MIN Magnesium Level 2.1 MG/DL Troponin I 0.12 NG/ML B-Type Natriuretic Peptide 1091 PG/ML Radiology Last Impressions Chest X-Ray 03/05/17 0000 Signed Impressions: Service Date/Time: Sunday, March 05, 2017 03:06 - CONCLUSION: Bilateral interstitial and airspace opacity slightly increased from the prior study. The appearance and distribution favors pulmonary edema. Justus Martinez MD Foot X-Ray 02/27/17 0000 Signed Impressions: Service Date/Time: Monday, February 27, 2017 14:20 - CONCLUSION: Soft tissue ulcer with subcutaneous emphysema. No evidence of osteomyelitis. Jase Sargent MD Aorta w/Runoff CTA 02/27/17 0000 Signed Impressions: Service Date/Time: Monday, February 27, 2017 17:08 - CONCLUSION: 1. Severe atherosclerotic disease of the abdominal aorta and its major branches and within both lower extremities. There is a moderate to severe stenosis of the midportion of the superficial femoral artery bilaterally but no vessel occlusion is identified. 2. Moderate size left pleural effusion. Justus Martinez MD Assessment/Plan Problem List: (1) Gangrene of toe of left foot Status: Acute (2) DM (diabetes mellitus) Status: Chronic Additional information PLAN: I placed the patient on the schedule for tomorrow at 4 PM for a left partial ray amputation of the first. Explained procedure the patient and his spouse. Understand risks and complications of nonhealing. He wishes to proceed with the planned surgery. Preoperative consent and orders written. Problem Qualifiers (1) DM (diabetes mellitus): Qualified Codes: E11.52 - Type 2 diabetes mellitus with diabetic peripheral angiopathy with gangrene Ismael Eid DPM Mar 05, 2017 12:32
[2017-03-05] MEDS: ACETAMINOPHEN 325 MG TAB PO PRN (14:54)
[2017-03-05] MEDS ORDERED: PHARMACY ORDERED LAB ONE (15:45)
--- NOTE | 2017-03-05 16:14 | HHI.IDPN ---
Subjective Subjective Remarks feels OK sp angio Patient will undergo hallux amputation by Dr. Eid sp Left common femoral endarterectomy, patch angioplasty, left SFA, endovascular balloon angioplasty and runoff x3 by Dr. Fleming. awaiting cardiology consult 2/2 elevated troponione Antibiotics vanco zosyn azithro Allergies: Coded Allergies: cyclobenzaprine (Unverified Allergy, Severe, Flushing, 02/27/17) REDNESS lisinopril (Unverified Allergy, Unknown, Swelling, 02/27/17) ANGIOEDEMA Objective . Vital Signs Date Time Temp Pulse Resp B/P (MAP) Pulse Ox O2 Delivery O2 Flow Rate FiO2 03/05/17 04:00 98.0 62 19 103/63 (76) 96 03/05/17 00:00 97.4 64 21 112/71 (85) 96 03/04/17 20:00 98.5 68 22 113/62 (79) 97 . Laboratory Tests Test 03/05/17 02:00 White Blood Count 17.6 TH/MM3 Red Blood Count 3.60 MIL/MM3 Hemoglobin 10.0 GM/DL Hematocrit 29.7 % Mean Corpuscular Volume 82.3 FL Mean Corpuscular Hemoglobin 27.6 PG Mean Corpuscular Hemoglobin Concent 33.6 % Red Cell Distribution Width 17.2 % Platelet Count 382 TH/MM3 Mean Platelet Volume 7.2 FL Neutrophils (%) (Auto) 89.0 % Lymphocytes (%) (Auto) 6.1 % Monocytes (%) (Auto) 4.2 % Eosinophils (%) (Auto) 0.4 % Basophils (%) (Auto) 0.3 % Neutrophils # (Auto) 15.7 TH/MM3 Lymphocytes # (Auto) 1.1 TH/MM3 Monocytes # (Auto) 0.7 TH/MM3 Eosinophils # (Auto) 0.1 TH/MM3 Basophils # (Auto) 0.1 TH/MM3 CBC Comment DIFF FINAL Differential Comment Laboratory Tests Test 03/04/17 05:50 03/05/17 02:00 Blood Urea Nitrogen 33 MG/DL 30 MG/DL Creatinine 1.20 MG/DL 1.14 MG/DL Random Glucose 249 MG/DL 207 MG/DL Calcium Level 8.4 MG/DL 8.4 MG/DL Sodium Level 134 MEQ/L 136 MEQ/L Potassium Level 3.7 MEQ/L 3.6 MEQ/L Chloride Level 101 MEQ/L 105 MEQ/L Carbon Dioxide Level 19.1 MEQ/L 21.2 MEQ/L Anion Gap 14 MEQ/L 10 MEQ/L Estimat Glomerular Filtration Rate 62 ML/MIN 65 ML/MIN Magnesium Level 2.1 MG/DL Troponin I 0.12 NG/ML B-Type Natriuretic Peptide 1091 PG/ML Imaging Last Impressions Chest X-Ray 03/05/17 0000 Signed Impressions: Service Date/Time: Sunday, March 05, 2017 03:06 - CONCLUSION: Bilateral interstitial and airspace opacity slightly increased from the prior study. The appearance and distribution favors pulmonary edema. Justus Martinez MD Foot X-Ray 02/27/17 0000 Signed Impressions: Service Date/Time: Monday, February 27, 2017 14:20 - CONCLUSION: Soft tissue ulcer with subcutaneous emphysema. No evidence of osteomyelitis. Jase Sargent MD Aorta w/Runoff CTA 02/27/17 0000 Signed Impressions: Service Date/Time: Monday, February 27, 2017 17:08 - CONCLUSION: 1. Severe atherosclerotic disease of the abdominal aorta and its major branches and within both lower extremities. There is a moderate to severe stenosis of the midportion of the superficial femoral artery bilaterally but no vessel occlusion is identified. 2. Moderate size left pleural effusion. Justus Martinez MD Physical Exam CONSTITUTIONAL/GENERAL: This is an obese elderly male patient, in no apparent distress. TUBES/LINES/DRAINS: SKIN: No jaundice, rashes, or lesions. Skin temperature appropriate. Not diaphoretic. CARDIOVASCULAR: Regular rate and rhythm without murmurs, gallops, or rubs. No JVD. Peripheral pulses symmetric. RESPIRATORY/CHEST: Symmetric, unlabored respirations. Clear to auscultation. Breath sounds equal bilaterally. No wheezes, rales, or rhonchi. GASTROINTESTINAL: Abdomen soft, non-tender, nondistended. No hepato-splenomegaly , or palpable masses. No guarding. Bowel sounds present. MUSCULOSKELETAL: Extremities without clubbing, No joint tenderness or effusion noted. No calf tenderness. No mottling or clubbing. LLE with prominent edema, erythem aextenditng to forefoot - better tiooday, but still prominent L hallux exam cw dry gangreneous changes, with foul odor Neuropahtic ulcer noted with necrotic bed @ the base of L hallux NEUROLOGICAL: Awake and alert. Motor and sensory grossly within normal limits. Follows commands. Clear speech. Moves all extremities. PSYCHIATRIC: calm and cooperative Assessment & Plan Remarks PVD, severe disease L hallux DFI, L hallux wet gangrene with ascending cellulitis - severe limb threatening, Multiple med problems including DM Worsnign sepsis : leukocytosis now > 20, BP borderline and worsening renal fnx Suspected LLL PNA - cont vancomycin - cont zosyn awaiting R hallux amputatiion - bone culture at the time of the surgery - ck sputum clx - cont azithro x 5 days Aby Lucia MD Mar 05, 2017 16:14
[2017-03-05 17:09] LABS: APTT (PATIENT) 32.2 SEC (24.3-30.1); INTERNATIONAL NORMALIZED RATIO 1.3 RATIO; PROTHROMBIN TIME - PATIENT 14.4 SEC (9.8-11.6)
[2017-03-05] MEDS: VANCOMYCIN INJ 1,750 MG in SODIUM CHLORID 0.9% 500 ML INJ 500 ML IV SCH (17:18)
--- NOTE | 2017-03-05 19:38 | PD.CARD.PN ---
Subjective Subjective Remarks CP this AM, now feels fine, no SOB Objective Medications Current Medications Medications (Trade) Dose Ordered Sig/Hugo Route Start Time Stop Time Status Last Admin (D50w (Vial) Inj) 50 ml UNSCH PRN IV 02/27/17 16:45 (Glucagon Inj) 1 mg UNSCH PRN OTHER 02/27/17 16:45 (NovoLOG SUPPLEMENTAL SCALE) 1 ACHS SLIDING SCALE SQ 02/27/17 21:00 03/05/17 17:15 Piperacillin Sod/ Tazobactam Sod 50 ml @ 100 mls/hr Q6H IV 02/27/17 21:00 03/05/17 14:53 Pharmacy Profile Note 0 ml @ 0 mls/hr UNSCH OTHER 02/27/17 16:45 (Aspirin Chew) 81 mg DAILY PO 02/28/17 09:00 03/05/17 09:07 (Coreg) 6.25 mg BID PO 02/27/17 21:00 03/05/17 11:14 (Zetia) 10 mg HS PO 02/27/17 21:00 03/04/17 20:23 (Ferrous Sulfate) 325 mg BID PO 02/27/17 21:00 03/05/17 09:08 (Neurontin) 100 mg QID PO 02/27/17 18:00 03/05/17 17:13 (Synthroid) 25 mcg DAILY@0600 PO 02/28/17 06:00 03/05/17 05:10 (Aldactone) 25 mg BIDPC PO 02/27/17 18:00 Future hold 03/05/17 17:13 (Brilinta) 90 mg BID PO 02/27/17 21:00 03/05/17 09:06 ([place] 5-325 Mg) 1 tab Q4H PRN PO 02/27/17 19:00 02/28/17 04:43 (Dilaudid Pf Inj) 1 mg Q4H PRN IV PUSH 02/28/17 11:00 ([place] 5-325 Mg) 2 tab Q4H PRN PO 02/28/17 11:00 03/02/17 19:36 (Lipitor) 80 mg DAILY PO 03/01/17 09:00 03/05/17 09:07 Vancomycin HCl 1750 mg/Sodium Chloride 517.5 ml @ 257.5 mls/ hr Q24H IV 03/01/17 16:00 03/05/17 17:18 (Zithromax) 250 mg DAILY PO 03/02/17 09:00 03/05/17 09:08 (Lasix) 40 mg DAILY PO 03/03/17 09:00 03/05/17 11:14 (Albuterol Neb) 2.5 mg Q4HR NEB PRN INH 03/02/17 21:00 03/03/17 21:12 (Heparin Inj) 5,000 units Q8HR SQ 03/03/17 06:00 03/05/17 14:53 (Levemir Inj) 10 units HS SQ 03/03/17 21:00 03/04/17 20:22 (Haldol Inj) 4 mg Q6H PRN IM 03/03/17 14:30 03/03/17 20:43 (SEROquel) 100 mg BID PO 03/03/17 21:00 03/05/17 09:06 (Habitrol 21 Mg Patch.24 Hr) 1 patch DAILY T-DERMAL 03/04/17 00:00 03/05/17 09:07 Miscellaneous Information 1 DAILY T-DERMAL 03/04/17 09:00 03/05/17 09:00 (KlonoPIN) 0.5 mg BID PRN PO 03/04/17 09:00 Dexmedetomidine HCl 1000 mcg/ Sodium Chloride 250 ml @ 5.53 mls/hr TITRATE PRN IV 03/04/17 20:00 03/04/17 20:21 (Effexor Xr) 75 mg DAILY PO 03/04/17 22:15 03/05/17 11:13 (Cozaar) 25 mg DAILY PO 03/06/17 12:00 (Tylenol) 650 mg Q4H PRN PO 03/05/17 14:00 03/05/17 14:54 Vital Signs / I&O Vital Signs Date Time Temp Pulse Resp B/P (MAP) Pulse Ox O2 Delivery O2 Flow Rate FiO2 03/05/17 08:00 97.5 71 23 90/56 (67) 97 03/05/17 04:00 98.0 62 19 103/63 (76) 96 03/05/17 00:00 97.4 64 21 112/71 (85) 96 03/04/17 20:00 98.5 68 22 113/62 (79) 97 I/O 03/04/17 03/04/17 03/04/17 03/05/17 03/05/17 03/05/17 06:59 14:59 22:59 06:59 14:59 22:59 Intake Total 1446 ml 1871 ml Output Total 1450 ml 2850 ml 1871 ml Balance -1450 ml -1404 ml 0 ml Intake Oral 960 ml 1250 ml IV Total 486 ml 621 ml Output Urine Total 1450 ml 2850 ml 1871 ml Bladder Scan Volume Amount 900 ml # Bowel Movements 0 0 Physical Exam GENERAL: In NAD SKIN: Warm and dry. HEAD: Normocephalic. EYES: No scleral icterus. No injection or drainage. NECK: Supple, trachea midline. No JVD or lymphadenopathy. CARDIOVASCULAR: Regular rate and rhythm without murmurs, gallops, or rubs. RESPIRATORY: Breath sounds equal bilaterally. No accessory muscle use. GASTROINTESTINAL: Abdomen soft, non-tender, nondistended. MUSCULOSKELETAL: No cyanosis, or edema. Ischemic hallux. Laboratory Laboratory Tests Test 03/05/17 02:00 03/05/17 16:39 White Blood Count 17.6 TH/MM3 Red Blood Count 3.60 MIL/MM3 Hemoglobin 10.0 GM/DL Hematocrit 29.7 % Mean Corpuscular Volume 82.3 FL Mean Corpuscular Hemoglobin 27.6 PG Mean Corpuscular Hemoglobin Concent 33.6 % Red Cell Distribution Width 17.2 % Platelet Count 382 TH/MM3 Mean Platelet Volume 7.2 FL Neutrophils (%) (Auto) 89.0 % Lymphocytes (%) (Auto) 6.1 % Monocytes (%) (Auto) 4.2 % Eosinophils (%) (Auto) 0.4 % Basophils (%) (Auto) 0.3 % Neutrophils # (Auto) 15.7 TH/MM3 Lymphocytes # (Auto) 1.1 TH/MM3 Monocytes # (Auto) 0.7 TH/MM3 Eosinophils # (Auto) 0.1 TH/MM3 Basophils # (Auto) 0.1 TH/MM3 CBC Comment DIFF FINAL Differential Comment Blood Urea Nitrogen 30 MG/DL Creatinine 1.14 MG/DL Random Glucose 207 MG/DL Calcium Level 8.4 MG/DL Magnesium Level 2.1 MG/DL Sodium Level 136 MEQ/L Potassium Level 3.6 MEQ/L Chloride Level 105 MEQ/L Carbon Dioxide Level 21.2 MEQ/L Anion Gap 10 MEQ/L Estimat Glomerular Filtration Rate 65 ML/MIN Troponin I 0.12 NG/ML B-Type Natriuretic Peptide 1091 PG/ML Prothrombin Time 14.4 SEC Prothromb Time International Ratio 1.3 RATIO Activated Partial Thromboplast Time 32.2 SEC Vancomycin Level Trough 17.4 MCG/ML Imaging Last Impressions Chest X-Ray 03/05/17 0000 Signed Impressions: Service Date/Time: Sunday, March 05, 2017 03:06 - CONCLUSION: Bilateral interstitial and airspace opacity slightly increased from the prior study. The appearance and distribution favors pulmonary edema. Justus Martinez MD Foot X-Ray 02/27/17 0000 Signed Impressions: Service Date/Time: Monday, February 27, 2017 14:20 - CONCLUSION: Soft tissue ulcer with subcutaneous emphysema. No evidence of osteomyelitis. Jase Sargent MD Aorta w/Runoff CTA 02/27/17 0000 Signed Impressions: Service Date/Time: Monday, February 27, 2017 17:08 - CONCLUSION: 1. Severe atherosclerotic disease of the abdominal aorta and its major branches and within both lower extremities. There is a moderate to severe stenosis of the midportion of the superficial femoral artery bilaterally but no vessel occlusion is identified. 2. Moderate size left pleural effusion. Justus Martinez MD Assessment and Plan Problem List: (1) CAD (coronary artery disease) ICD Codes: I25.10 - Atherosclerotic heart disease of [place] coronary artery without angina pectoris (2) PVD (peripheral vascular disease) ICD Codes: I73.9 - Peripheral vascular disease, unspecified (3) Stented coronary artery ICD Codes: Z95.5 - Presence of coronary angioplasty implant and graft Status: Acute (4) Hx of CABG ICD Codes: Z95.1 - Presence of aortocoronary bypass graft Status: Acute (5) Ischemic pain of left foot ICD Codes: M79.672 - Pain in left foot; I99.9 - Unspecified disorder of circulatory system Status: Acute (6) Diabetes mellitus ICD Codes: E11.9 - Type 2 diabetes mellitus without complications Status: Chronic (7) Carotid artery occlusion ICD Codes: I65.29 - Occlusion and stenosis of unspecified carotid artery Status: Acute (8) CHF (congestive heart failure) ICD Codes: I50.9 - Heart failure, unspecified Status: Chronic (9) Hyperlipidemia ICD Codes: E78.5 - Hyperlipidemia, unspecified Status: Chronic (10) Anemia ICD Codes: D64.9 - Anemia, unspecified Assessment and Plan CP this AM, no CHF symptoms. Troponin borderline, but renal fx recently exacerbated. Stays in SR. Continue current program including Brilinta and baby ASA to prevent stent thrombosis. Continue aggressive risk factor modification. Serial enzymes and EKGs. Continue close monitoring. Will need hallux amputation in the near future. Vy Crowder MD Mar 05, 2017 19:38
[2017-03-05] MEDS: INSULIN DETEMIR 100 UNITS/ML VIAL SQ SCH (21:00)
[2017-03-05] MEDS: EZETIMIBE 10 MG TAB PO SCH (21:51)
[2017-03-06] VITALS (8 sets, daily range): BP systolic 113–126; BP diastolic 50–77; PULSE 61–86; RESP 19–26; TEMP 97.5–98.9; O2SAT 95–99
[2017-03-06] MEDS: PIPERACIL-TAZO 3.375 GM PREMIX 50 ML IV SCH ×4 (03:37→21:46)
[2017-03-06 05:01] LABS: AUTOMATED NEUTROPHIL # 17.3 TH/MM3 (1.8-7.7); BASOPHIL # 0.1 TH/MM3 (0-0.2); BASOPHIL % 0.5 % (0.0-2.0); EOSINOPHIL # 0.1 TH/MM3 (0-0.4); EOSINOPHIL % 0.5 % (0.0-4.0); HEMATOCRIT 32.2 % (39.0-51.0); HEMO FLAGS DIFF FINAL; LYMPH % 5.3 % (9.0-44.0); MEAN CELL VOLUME 82.1 FL (80.0-100.0); MEAN CORPUSCULAR HEMOGLOBIN 26.9 PG (27.0-34.0); MEAN CORPUSCULAR HGB CONC 32.8 % (32.0-36.0); MONO % 4.1 % (0.0-8.0); NEUT % 89.6 % (16.0-70.0); PLATELET COUNT 453 TH/MM3 (150-450); RED BLOOD COUNT 3.92 MIL/MM3 (4.50-5.90); RED CELL DISTRIBUTION WIDTH 17.7 % (11.6-17.2); WHITE BLOOD COUNT 19.3 TH/MM3 (4.0-11.0)
[2017-03-06 05:27] LABS: ANION GAP 10 MEQ/L (5-15); AST (GOT) 26 U/L (15-37); BICARBONATE 22.2 MEQ/L (21.0-32.0); BLOOD UREA NITROGEN 22 MG/DL (7-18); CHLORIDE 106 MEQ/L (98-107); GLOMERULAR FILTRATION RATE 78 ML/MIN (>89); MAGNESIUM 1.9 MG/DL (1.5-2.5); SODIUM (NA) 138 MEQ/L (136-145)
[2017-03-06 05:36] LABS: ALKALINE PHOSPHATASE 66 U/L (45-117); ALT (GPT) 36 U/L (12-78); FREE T4 1.23 NG/DL (0.76-1.46); TOTAL BILIRUBIN ADULT 0.6 MG/DL (0.2-1.0)
[2017-03-06] MEDS: LEVOTHYROXINE SODIUM 25 MCG TAB PO SCH (06:00)
[2017-03-06] MEDS: HEPARIN SODIUM - SQ 10,000 UNITS/ML VIAL SQ SCH ×3 (06:00→21:48)
[2017-03-06] MEDS: INSULIN ASPART SUPPLEMENTAL SCALE SQ SCH ×4 (06:25→21:00)
[2017-03-06] MEDS: NICOTINE 21 MG/24 HR PATCH T-DERMAL SCH (08:37)
[2017-03-06] MEDS: TICAGRELOR 90 MG TAB PO SCH ×2 (08:38→21:47)
[2017-03-06] MEDS: FUROSEMIDE 40 MG TAB PO SCH (08:38)
[2017-03-06] MEDS: SPIRONOLACTONE 25 MG TAB PO SCH ×2 (08:38→18:00)
[2017-03-06] MEDS: ASPIRIN 81 MG CHEW TAB PO SCH (08:38)
[2017-03-06] MEDS: GABAPENTIN 100 MG CAP PO SCH ×4 (08:38→21:46)
[2017-03-06] MEDS: AZITHROMYCIN 250 MG TAB PO SCH (08:38)
[2017-03-06] MEDS: REMOVE OLD PATCH T-DERMAL SCH (08:38)
[2017-03-06] MEDS: FERROUS SULFATE 325 MG (65 MG ELEMENTAL IRON) TAB PO SCH ×2 (08:38→21:46)
[2017-03-06] MEDS: ATORVASTATIN 80 MG TAB PO SCH (08:38)
[2017-03-06] MEDS: VENLAFAXINE HCL XR 75 MG CAP PO SCH (08:38)
[2017-03-06] MEDS: CARVEDILOL 6.25 MG TAB PO SCH ×2 (08:38→21:47)
[2017-03-06] MEDS: QUEtiapine FUMARATE 100 MG TAB PO SCH ×2 (08:39→21:47)
--- NOTE | 2017-03-06 10:40 | HHI.PR ---
Subjective Remarks This is a pleasant 61 y/o male with Left foot cellulitis, CAD status post previous CABG, with recent NSTEMI 01/05/17 status post PCI and stent placement, Atrial fibrillation status post Ablation History of V tach, Hypertension, Severe left ventricular systolic dysfunction, Ischemic cardiomyopathy, COPD, Hypothyroidism, DM II, who was just recently discharged 02/06/17. came with discoloration of the left great toe, MRI of the foot was obtained at that time which showed soft tissue ulceration and no evidence of osteomyelitis. Chest x- ray shows some worsening of the left lower lobe infiltrate. Dr. Esparza was contacted while patient still in the ED and requested at CTA with runoff be ordered and he will see him in consultation. Patient was given vancomycin and Zosyn. followed by technical service specialist, the patient has PAD, recommended to continue Brilinta and Baby Aspirin to prevent stent thrombosis. Vascular bi specialist following, the patient has Severe Stenosis of the distal iliac arteries and bilateral common femoral arteries, severe stenosis of the SFA Bilateral, Status post revascularization of the left leg with the common femoral endarterectomy patch and superficial femoral artery balloon angioplasty has severe distal trifurcation disease and the severe SFA vascular occlusive disease. 03/03/17, recommended Podiatry for Hallux amputation Scheduled for later today by Doctor Eid. he will need Carotid Endarterectomy, he has Total left sided occlusion and right sided hemodynamically significant stenosis. ID specialist following, with Diagnosis of Worsening sepsis, Leukocytosis over 20, worsening renal function, suspected LLL PNA, to continue Vancomycin Zosyn and Azithromycin for five days. Seen in his bedroom in the presence of his Mrs. Vicki Ovalle, no nausea, vomit or diarrhea, he will have amputation of the Left Hallux later today, at this time stable resting in bed. Objective Vital Signs Date Time Temp Pulse Resp B/P (MAP) Pulse Ox O2 Delivery O2 Flow Rate FiO2 03/06/17 09:55 97 21 03/06/17 08:00 98.9 66 23 118/61 (80) 96 03/06/17 04:00 98.6 76 26 113/57 (75) 95 03/06/17 03:36 99 03/06/17 00:19 99 03/06/17 00:00 97.6 86 25 126/77 (93) 97 03/05/17 20:17 96 03/05/17 20:00 97.6 72 28 121/79 (93) 98 03/05/17 16:00 98.1 68 19 122/75 (91) 98 03/05/17 12:00 97.0 65 27 110/68 (82) 97 I/O 03/05/17 03/05/17 03/05/17 03/06/17 03/06/17 03/06/17 07:00 15:00 23:00 07:00 15:00 23:00 Intake Total 1871 ml 1331 ml 472 ml Output Total 1871 ml 3650 ml 1350 ml Balance 0 ml -2319 ml -878 ml Intake Oral 1250 ml 660 ml 360 ml IV Total 621 ml 671 ml 112 ml Output Urine Total 1871 ml 3650 ml 1350 ml # Bowel Movements 0 0 0 Result Diagram: 03/06/17 0357 03/06/17 0357 Imaging Last Impressions Chest X-Ray 03/05/17 0000 Signed Impressions: Service Date/Time: Sunday, March 05, 2017 03:06 - CONCLUSION: Bilateral interstitial and airspace opacity slightly increased from the prior study. The appearance and distribution favors pulmonary edema. Justus Martinez MD Foot X-Ray 02/27/17 0000 Signed Impressions: Service Date/Time: Monday, February 27, 2017 14:20 - CONCLUSION: Soft tissue ulcer with subcutaneous emphysema. No evidence of osteomyelitis. Jase Sargent MD Aorta w/Runoff CTA 02/27/17 0000 Signed Impressions: Service Date/Time: Monday, February 27, 2017 17:08 - CONCLUSION: 1. Severe atherosclerotic disease of the abdominal aorta and its major branches and within both lower extremities. There is a moderate to severe stenosis of the midportion of the superficial femoral artery bilaterally but no vessel occlusion is identified. 2. Moderate size left pleural effusion. Justus Martinez MD Procedures s/p revascularization of the left leg with the common femoral endarterectomy patch and superficial femoral artery balloon angioplasty Other Results Laboratory Tests Test 02/27/17 14:45 02/27/17 16:45 02/28/17 19:00 03/01/17 06:32 Lactic Acid Level 1.7 mmol/L Urine Color YELLOW Urine Turbidity CLEAR Urine pH 5.5 Urine Specific [place] 1.011 Urine Protein TRACE mg/dL Urine Glucose (UA) NEG mg/dL Urine Ketones NEG mg/dL Urine Occult Blood NEG Urine Nitrite NEG Urine Bilirubin NEG Urine Urobilinogen LESS THAN 2.0 MG/DL Urine Leukocyte Esterase NEG Microscopic Urinalysis Comment CATH-CULT NOT IND Iron Level 11 MCG/DL Total Iron Binding Capacity 294 MCG/DL Percent Iron Saturation 3.7 % Ferritin 145 NG/ML Triglycerides Level 80 MG/DL Cholesterol Level 86 MG/DL LDL Cholesterol 50 MG/DL HDL Cholesterol 19.9 MG/DL Cholesterol/HDL Ratio 4.32 RATIO Random Vancomycin Level 6.1 COMMENT Test 03/03/17 21:50 03/05/17 02:00 03/05/17 16:39 03/06/17 03:57 Blood Gas Puncture Site RT RADIAL Blood Gas Patient Temperature 98.6 Blood Gas HCO3 18 mmol/L Blood Gas Base Excess -5.0 mmol/L Blood Gas Oxygen Saturation 98 % Arterial Blood pH 7.48 Arterial Blood Partial Pressure CO2 25 mmHg Arterial Blood Partial Pressure O2 109 mmHg Arterial Blood Oxygen Content 13.4 Vol % Arterial Blood Carboxyhemoglobin 1.3 % Arterial Blood Methemoglobin 0.0 % Blood Gas Hemoglobin 9.7 G/DL Oxygen Delivery Device NASAL CANNULA Blood Gas Liter Flow 3 L/M Troponin I 0.12 NG/ML B-Type Natriuretic Peptide 1091 PG/ML Prothrombin Time 14.4 SEC Prothromb Time International Ratio 1.3 RATIO Activated Partial Thromboplast Time 32.2 SEC Vancomycin Level Trough 17.4 MCG/ML White Blood Count 19.3 TH/MM3 Red Blood Count 3.92 MIL/MM3 Hemoglobin 10.6 GM/DL Hematocrit 32.2 % Mean Corpuscular Volume 82.1 FL Mean Corpuscular Hemoglobin 26.9 PG Mean Corpuscular Hemoglobin Concent 32.8 % Red Cell Distribution Width 17.7 % Platelet Count 453 TH/MM3 Mean Platelet Volume 7.0 FL Neutrophils (%) (Auto) 89.6 % Lymphocytes (%) (Auto) 5.3 % Monocytes (%) (Auto) 4.1 % Eosinophils (%) (Auto) 0.5 % Basophils (%) (Auto) 0.5 % Neutrophils # (Auto) 17.3 TH/MM3 Lymphocytes # (Auto) 1.0 TH/MM3 Monocytes # (Auto) 0.8 TH/MM3 Eosinophils # (Auto) 0.1 TH/MM3 Basophils # (Auto) 0.1 TH/MM3 CBC Comment DIFF FINAL Differential Comment Blood Urea Nitrogen 22 MG/DL Creatinine 0.98 MG/DL Random Glucose 153 MG/DL Total Protein 7.0 GM/DL Albumin 2.1 GM/DL Calcium Level 8.6 MG/DL Phosphorus Level 3.1 MG/DL Magnesium Level 1.9 MG/DL Alkaline Phosphatase 66 U/L Aspartate Amino Transf (AST/SGOT) 26 U/L Alanine Aminotransferase (ALT/SGPT) 36 U/L Total Bilirubin 0.6 MG/DL Sodium Level 138 MEQ/L Potassium Level 4.0 MEQ/L Chloride Level 106 MEQ/L Carbon Dioxide Level 22.2 MEQ/L Anion Gap 10 MEQ/L Estimat Glomerular Filtration Rate 78 ML/MIN Free Thyroxine 1.23 NG/DL Thyroid Stimulating Hormone 3rd Gen 2.880 uIU/ML Objective Remarks GENERAL: Obesity, no acute distress. SKIN: Warm and dry. Left lower extremity is swollen and erythematous tenderness in foot also has the wound wound HEAD: Atraumatic. Normocephalic. NECK: Trachea midline. No JVD. Neck is supple CARDIOVASCULAR: Regular rate and rhythm. S1-S2 no S3 or S4 no heave or thrill or rub or gallop RESPIRATORY: No accessory muscle use. Clear to auscultation. Breath sounds equal bilaterally. GASTROINTESTINAL: Abdomen soft, non-tender, nondistended. Hepatic and splenic margins not palpable. Obese MUSCULOSKELETAL:. Left first toe with gangrene. NEUROLOGICAL: Awake and alert. No obvious cranial nerve deficits. PSYCHIATRIC: Appropriate mood and affect. Medications and IVs Current Medications Medications (Trade) Dose Ordered Sig/Hugo Route Start Time Stop Time Status Last Admin (D50w (Vial) Inj) 50 ml UNSCH PRN IV 02/27/17 16:45 (Glucagon Inj) 1 mg UNSCH PRN OTHER 02/27/17 16:45 (NovoLOG SUPPLEMENTAL SCALE) 1 ACHS SLIDING SCALE SQ 02/27/17 21:00 03/05/17 21:00 Piperacillin Sod/ Tazobactam Sod 50 ml @ 100 mls/hr Q6H IV 02/27/17 21:00 03/06/17 08:38 Pharmacy Profile Note 0 ml @ 0 mls/hr UNSCH OTHER 02/27/17 16:45 (Aspirin Chew) 81 mg DAILY PO 02/28/17 09:00 03/05/17 09:07 (Coreg) 6.25 mg BID PO 02/27/17 21:00 03/06/17 08:38 (Zetia) 10 mg HS PO 02/27/17 21:00 03/05/17 21:51 (Ferrous Sulfate) 325 mg BID PO 02/27/17 21:00 03/06/17 08:38 (Neurontin) 100 mg QID PO 02/27/17 18:00 03/06/17 08:38 (Synthroid) 25 mcg DAILY@0600 PO 02/28/17 06:00 03/05/17 05:10 (Aldactone) 25 mg BIDPC PO 02/27/17 18:00 Future hold 03/06/17 08:38 (Brilinta) 90 mg BID PO 02/27/17 21:00 03/06/17 08:38 ([place] 5-325 Mg) 1 tab Q4H PRN PO 02/27/17 19:00 02/28/17 04:43 (Dilaudid Pf Inj) 1 mg Q4H PRN IV PUSH 02/28/17 11:00 ([place] 5-325 Mg) 2 tab Q4H PRN PO 02/28/17 11:00 03/02/17 19:36 (Lipitor) 80 mg DAILY PO 03/01/17 09:00 03/06/17 08:38 Vancomycin HCl 1750 mg/Sodium Chloride 517.5 ml @ 257.5 mls/ hr Q24H IV 03/01/17 16:00 03/05/17 17:18 (Zithromax) 250 mg DAILY PO 03/02/17 09:00 03/06/17 08:38 (Lasix) 40 mg DAILY PO 03/03/17 09:00 03/06/17 08:38 (Albuterol Neb) 2.5 mg Q4HR NEB PRN INH 03/02/17 21:00 03/03/17 21:12 (Heparin Inj) 5,000 units Q8HR SQ 03/03/17 06:00 03/05/17 14:53 (Levemir Inj) 10 units HS SQ 03/03/17 21:00 03/05/17 21:00 (Haldol Inj) 4 mg Q6H PRN IM 03/03/17 14:30 03/03/17 20:43 (SEROquel) 100 mg BID PO 03/03/17 21:00 03/05/17 09:06 (Habitrol 21 Mg Patch.24 Hr) 1 patch DAILY T-DERMAL 03/04/17 00:00 03/06/17 08:37 Miscellaneous Information 1 DAILY T-DERMAL 03/04/17 09:00 03/06/17 08:38 (KlonoPIN) 0.5 mg BID PRN PO 03/04/17 09:00 Dexmedetomidine HCl 1000 mcg/ Sodium Chloride 250 ml @ 5.53 mls/hr TITRATE PRN IV 03/04/17 20:00 03/04/17 20:21 (Effexor Xr) 75 mg DAILY PO 03/04/17 22:15 03/06/17 08:38 (Cozaar) 25 mg DAILY PO 03/06/17 12:00 (Tylenol) 650 mg Q4H PRN PO 03/05/17 14:00 03/05/17 14:54 Miscellaneous Information SPECIFIC LAB TO BE DRAWN:VANCO TROUGH DATE TO BE DR... ONCE ONCE .XX 03/07/17 15:45 03/07/17 15:46 A/P Assessment and Plan ischemic left foot with gangrene of the left great toe s/p status post revascularization of the left leg with the common femoral endarterectomy patch and superficial femoral artery balloon angioplasty Scheduled for left great toe amputation later today by Podiatry. Dr. Eid sepsis due to Cellulitis/Diabetic foot ulcer Continue Vancomycin, Zosyn and Azithromycin. blood cultures negative in five days. ID and podiatry following. CAD with ischemic cardiomyopathy previous CABG recent NSTEMI status post cardiac catheterization stent implantation 12/23 History of V. tach History of atrial fibrillation status post ablation Hypertension Severe left ventricular systolic dysfunction continue aspirin 81mg and Brilinta 90mg BID, Lipitor 80mg Continue Coreg and Losartan continue Lasix and Aldactone cardiology following. acute kidney injury Improved. Type 2 DM Diabetic neuropathy Better control. Hold patient's metformin, glipizide and pioglitazone Accu-Cheks and insulin sliding scale Continue Levemir 10 units daily at bedtime Continue patient's home dose of gabapentin 100 mg by mouth 4 times a day Diabetic diet Anemia s/p PRBC transfusion- H/H now improved- will monitor Continue patient on home dose of ferrous sulfate 325 mg by mouth twice a day Hypothyroidism Continue patient on home dose of levothyroxine 25 g daily Psychosis The patient is been as outpatient on Effexor and in house is on Seroquel, he is doing better now, but his asked about the need to come back on Effexor I will monitor his behavior and continue Seroquel is been well tolerated by the patient. Full code. DVT prophylaxis; subq Heparin Discussed with Patient His and Grand-daughter in the room. all questions answered to the best of my abilities. Discharge Planning Once Cleared by specialists. Marques Dick MD Mar 06, 2017 10:40
[2017-03-06] MEDS ORDERED: PROPOFOL 200 MG/20 ML AMP IV ONE (12:00)
[2017-03-06] MEDS ORDERED: LACTATED RINGER'S 1000 ML INJ 1,000 ML IV ONE (12:00)
[2017-03-06] MEDS ORDERED: ONDANSETRON HCL 4 MG/2 ML VIAL IV PUSH ONE (12:00)
[2017-03-06 12:12] LABS: HEMOGLOBIN A1a 1.3 %; HEMOGLOBIN Ao 81.8 %; HEMOGLOBIN LA1C 2.7 %; HEMOGLOBIN P3 6.2 %
[2017-03-06] MEDS: LOSARTAN 25 MG TAB PO SCH (13:10)
[2017-03-06] MEDS: ACETAMINOPHEN 325 MG TAB PO PRN (13:11)
--- NOTE | 2017-03-06 13:58 | PD.CARD.PN ---
Subjective Subjective Remarks Mild SOB, no angina Objective Medications Current Medications Medications (Trade) Dose Ordered Sig/Hugo Route Start Time Stop Time Status Last Admin (D50w (Vial) Inj) 50 ml UNSCH PRN IV 02/27/17 16:45 (Glucagon Inj) 1 mg UNSCH PRN OTHER 02/27/17 16:45 (NovoLOG SUPPLEMENTAL SCALE) 1 ACHS SLIDING SCALE SQ 02/27/17 21:00 03/05/17 21:00 Piperacillin Sod/ Tazobactam Sod 50 ml @ 100 mls/hr Q6H IV 02/27/17 21:00 03/06/17 08:38 Pharmacy Profile Note 0 ml @ 0 mls/hr UNSCH OTHER 02/27/17 16:45 (Aspirin Chew) 81 mg DAILY PO 02/28/17 09:00 03/05/17 09:07 (Coreg) 6.25 mg BID PO 02/27/17 21:00 03/06/17 08:38 (Zetia) 10 mg HS PO 02/27/17 21:00 03/05/17 21:51 (Ferrous Sulfate) 325 mg BID PO 02/27/17 21:00 03/06/17 08:38 (Neurontin) 100 mg QID PO 02/27/17 18:00 03/06/17 13:10 (Synthroid) 25 mcg DAILY@0600 PO 02/28/17 06:00 03/05/17 05:10 (Aldactone) 25 mg BIDPC PO 02/27/17 18:00 Future hold 03/06/17 08:38 (Brilinta) 90 mg BID PO 02/27/17 21:00 03/06/17 08:38 ([place] 5-325 Mg) 1 tab Q4H PRN PO 02/27/17 19:00 02/28/17 04:43 (Dilaudid Pf Inj) 1 mg Q4H PRN IV PUSH 02/28/17 11:00 ([place] 5-325 Mg) 2 tab Q4H PRN PO 02/28/17 11:00 03/02/17 19:36 (Lipitor) 80 mg DAILY PO 03/01/17 09:00 03/06/17 08:38 Vancomycin HCl 1750 mg/Sodium Chloride 517.5 ml @ 257.5 mls/ hr Q24H IV 03/01/17 16:00 03/05/17 17:18 (Zithromax) 250 mg DAILY PO 03/02/17 09:00 03/06/17 08:38 (Lasix) 40 mg DAILY PO 03/03/17 09:00 03/06/17 08:38 (Albuterol Neb) 2.5 mg Q4HR NEB PRN INH 03/02/17 21:00 03/03/17 21:12 (Heparin Inj) 5,000 units Q8HR SQ 03/03/17 06:00 03/05/17 14:53 (Levemir Inj) 10 units HS SQ 03/03/17 21:00 03/05/17 21:00 (Haldol Inj) 4 mg Q6H PRN IM 03/03/17 14:30 03/03/17 20:43 (SEROquel) 100 mg BID PO 03/03/17 21:00 03/05/17 09:06 (Habitrol 21 Mg Patch.24 Hr) 1 patch DAILY T-DERMAL 03/04/17 00:00 03/06/17 08:37 Miscellaneous Information 1 DAILY T-DERMAL 03/04/17 09:00 03/06/17 08:38 (KlonoPIN) 0.5 mg BID PRN PO 03/04/17 09:00 Dexmedetomidine HCl 1000 mcg/ Sodium Chloride 250 ml @ 5.53 mls/hr TITRATE PRN IV 03/04/17 20:00 03/04/17 20:21 (Effexor Xr) 75 mg DAILY PO 03/04/17 22:15 03/06/17 08:38 (Cozaar) 25 mg DAILY PO 03/06/17 12:00 03/06/17 13:10 (Tylenol) 650 mg Q4H PRN PO 03/05/17 14:00 03/06/17 13:11 Miscellaneous Information SPECIFIC LAB TO BE DRAWN:[facility]ANCO TROUGH DATE TO BE DRSerge.. ONCE ONCE .XX 03/07/17 15:45 03/07/17 15:46 Vital Signs / I&O Vital Signs Date Time Temp Pulse Resp B/P (MAP) Pulse Ox O2 Delivery O2 Flow Rate FiO2 03/06/17 09:55 97 21 03/06/17 08:00 98.9 66 23 118/61 (80) 96 03/06/17 04:00 98.6 76 26 113/57 (75) 95 03/06/17 03:36 99 03/06/17 00:19 99 03/06/17 00:00 97.6 86 25 126/77 (93) 97 03/05/17 20:17 96 03/05/17 20:00 97.6 72 28 121/79 (93) 98 03/05/17 16:00 98.1 68 19 122/75 (91) 98 I/O 03/05/17 03/05/17 03/05/17 03/06/17 03/06/17 03/06/17 06:59 14:59 22:59 06:59 14:59 22:59 Intake Total 1871 ml 1331 ml 472 ml 50 ml Output Total 1871 ml 3650 ml 1350 ml Balance 0 ml -2319 ml -878 ml 50 ml Intake Oral 1250 ml 660 ml 360 ml IV Total 621 ml 671 ml 112 ml 50 ml Output Urine Total 1871 ml 3650 ml 1350 ml # Bowel Movements 0 0 0 Physical Exam GENERAL: In NAD SKIN: Warm and dry. HEAD: Normocephalic. EYES: No scleral icterus. No injection or drainage. NECK: Supple, trachea midline. No JVD or lymphadenopathy. CARDIOVASCULAR: Regular rate and rhythm without murmurs, gallops, or rubs. RESPIRATORY: Breath sounds equal bilaterally. No accessory muscle use. GASTROINTESTINAL: Abdomen soft, non-tender, nondistended. MUSCULOSKELETAL: No cyanosis, or edema. Ischemic hallux. Laboratory Laboratory Tests Test 03/05/17 16:39 03/06/17 03:57 Prothrombin Time 14.4 SEC Prothromb Time International Ratio 1.3 RATIO Activated Partial Thromboplast Time 32.2 SEC Vancomycin Level Trough 17.4 MCG/ML White Blood Count 19.3 TH/MM3 Red Blood Count 3.92 MIL/MM3 Hemoglobin 10.6 GM/DL Hematocrit 32.2 % Mean Corpuscular Volume 82.1 FL Mean Corpuscular Hemoglobin 26.9 PG Mean Corpuscular Hemoglobin Concent 32.8 % Red Cell Distribution Width 17.7 % Platelet Count 453 TH/MM3 Mean Platelet Volume 7.0 FL Neutrophils (%) (Auto) 89.6 % Lymphocytes (%) (Auto) 5.3 % Monocytes (%) (Auto) 4.1 % Eosinophils (%) (Auto) 0.5 % Basophils (%) (Auto) 0.5 % Neutrophils # (Auto) 17.3 TH/MM3 Lymphocytes # (Auto) 1.0 TH/MM3 Monocytes # (Auto) 0.8 TH/MM3 Eosinophils # (Auto) 0.1 TH/MM3 Basophils # (Auto) 0.1 TH/MM3 CBC Comment DIFF FINAL Differential Comment Blood Urea Nitrogen 22 MG/DL Creatinine 0.98 MG/DL Random Glucose 153 MG/DL Total Protein 7.0 GM/DL Albumin 2.1 GM/DL Calcium Level 8.6 MG/DL Phosphorus Level 3.1 MG/DL Magnesium Level 1.9 MG/DL Alkaline Phosphatase 66 U/L Aspartate Amino Transf (AST/SGOT) 26 U/L Alanine Aminotransferase (ALT/SGPT) 36 U/L Total Bilirubin 0.6 MG/DL Sodium Level 138 MEQ/L Potassium Level 4.0 MEQ/L Chloride Level 106 MEQ/L Carbon Dioxide Level 22.2 MEQ/L Anion Gap 10 MEQ/L Estimat Glomerular Filtration Rate 78 ML/MIN Hemoglobin A1c 6.9 % Free Thyroxine 1.23 NG/DL Thyroid Stimulating Hormone 3rd Gen 2.880 uIU/ML Imaging Last Impressions Chest X-Ray 03/05/17 0000 Signed Impressions: Service Date/Time: Sunday, March 05, 2017 03:06 - CONCLUSION: Bilateral interstitial and airspace opacity slightly increased from the prior study. The appearance and distribution favors pulmonary edema. Justus Martinez MD Foot X-Ray 02/27/17 0000 Signed Impressions: Service Date/Time: Monday, February 27, 2017 14:20 - CONCLUSION: Soft tissue ulcer with subcutaneous emphysema. No evidence of osteomyelitis. Jase Sargent MD Aorta w/Runoff CTA 02/27/17 0000 Signed Impressions: Service Date/Time: Monday, February 27, 2017 17:08 - CONCLUSION: 1. Severe atherosclerotic disease of the abdominal aorta and its major branches and within both lower extremities. There is a moderate to severe stenosis of the midportion of the superficial femoral artery bilaterally but no vessel occlusion is identified. 2. Moderate size left pleural effusion. Justus Martinez MD Assessment and Plan Problem List: (1) CAD (coronary artery disease) ICD Codes: I25.10 - Atherosclerotic heart disease of [place] coronary artery without angina pectoris (2) PVD (peripheral vascular disease) ICD Codes: I73.9 - Peripheral vascular disease, unspecified (3) Stented coronary artery ICD Codes: Z95.5 - Presence of coronary angioplasty implant and graft Status: Acute (4) Hx of CABG ICD Codes: Z95.1 - Presence of aortocoronary bypass graft Status: Acute (5) Ischemic pain of left foot ICD Codes: M79.672 - Pain in left foot; I99.9 - Unspecified disorder of circulatory system Status: Acute (6) Diabetes mellitus ICD Codes: E11.9 - Type 2 diabetes mellitus without complications Status: Chronic (7) Carotid artery occlusion ICD Codes: I65.29 - Occlusion and stenosis of unspecified carotid artery Status: Acute (8) CHF (congestive heart failure) ICD Codes: I50.9 - Heart failure, unspecified Status: Chronic (9) Hyperlipidemia ICD Codes: E78.5 - Hyperlipidemia, unspecified Status: Chronic (10) Anemia ICD Codes: D64.9 - Anemia, unspecified Assessment and Plan No angina or CHF symptoms. Troponin borderline, but renal fx recently exacerbated. Stays in SR. Continue current program including Brilinta and baby ASA to prevent stent thrombosis. Continue aggressive risk factor modification. Continue monitoring. Proceed with hallux amputation as scheduled. Will need CEA later as well. F/u w Dr. Steele. Vy rCowder MD Mar 06, 2017 13:58
[2017-03-06] MEDS: VANCOMYCIN INJ 1,750 MG in SODIUM CHLORID 0.9% 500 ML INJ 500 ML IV SCH (14:48)
[2017-03-06] MEDS ORDERED: BUPIVACAINE HCL PF 0.5% 30 ML VIAL ONE (16:12)
[2017-03-06] MEDS ORDERED: LIDOCAINE HCL 1% 50 ML VIAL ONE (16:13)
[2017-03-06] MEDS ORDERED: SUGAMMADEX SODIUM 200 MG/2 ML VIAL IV PUSH ONE ×2 (17:00)
[2017-03-06] MEDS ORDERED: HYDROmorphone HCL PF 1 MG/ML VIAL IV PRN (17:30)
[2017-03-06] MEDS ORDERED: HYDROmorphone HCL 2 MG TAB PO PRN (17:30)
[2017-03-06] MEDS ORDERED: SODIUM CHLORIDE 0.9% FLUSH 10 ML FLUSH IV FLUSH PRN (17:30)
[2017-03-06] MEDS ORDERED: NALOXONE HCL 0.4 MG/ML AMP IV PRN (17:30)
[2017-03-06] MEDS ORDERED: Post-op Orders (for Pharmacy) MISC XX ONE (17:30)
[2017-03-06] MEDS ORDERED: ACETAMINOPHEN 325 MG TAB PO PRN (17:30)
--- NOTE | 2017-03-06 17:34 | PD.OP ---
Operative Report Date of Surgery: Mar 06, 2017 Preoperative Diagnosis: (1) Gangrene of toe of left foot Hallux Postoperative Diagnosis: (1) Gangrene of toe of left foot Hallux Procedure: Amputation of the left hallux and first metatarsal head Anesthesia: General inhalation Surgeon: Ismael Eid DPM Newspaper Editor(s): Dianna OLSON Operation and Findings: Patient was brought to the operating room and placed on the operating table in the supine position. Patient was given general inhalation anesthesia. The left foot was prepped and draped in the usual sterile manner. After the appropriate timeout was performed attention was directed to the left hallux which was noted to have dry gangrene back proximal to the first MPJ. At this time using a #15 blade the left hallux was amputated at the level of the metatarsal phalangeal joint and sent to pathology. The head of the first metatarsal was then freed up and resected using an oscillating saw. Part of the sesamoid apparatus was also removed. This was all sent to pathology. It should be noted that there was some general bleeding and oozing but no pumping vessels were identified. The area was flushed with copious amounts of sterile saline. The proximal excision was reapproximated and closed with 2-0 Vicryl and 3-0 Prolene. Distal part of the excision had a defect of soft tissue which would have required resecting the second toe for closure. The area was anesthetized with 10 cc of 0.5% Marcaine. The open part of the incision was dressed with Maxorb extra AG. The remaining incision was dressed with Adaptic, 4 x 4's and Radha. Sponge and instrument count was noted to be correct. Bone of the first metatarsal head and the left hallux was sent to pathology. Patient tolerated the procedures and anesthesia well and left the OR to PACU in apparent satisfactory condition. Ismael Eid DPM Mar 06, 2017 17:34
[2017-03-06] MEDS ORDERED: DO NOT ADM ANY ANTICOAGULANT DRUGS PRN (17:44)
--- NOTE | 2017-03-06 18:54 | RADRPT ---
EXAM DATE/TIME: 03/06/2017 17:50 [facility] COMPARISON: FOOT LEFT COMPLETE ([id number]), February 27, 2017, 14:20. INDICATIONS : Post OP, left big toe amputation. MEDICAL HISTORY : Congestive heart failure. Type 2 Diabetes. SURGICAL HISTORY : CABG. Pacemaker. ENCOUNTER: Subsequent ACUITY: 2 weeks PAIN SCORE: 0/10 LOCATION: Left foot FINDINGS: Status post first toe amputation. The amputation appears to be through the distal portion of the firs t metatarsal. Postsurgical changes are noted. The rest of the bony structures are grossly intact. CONCLUSION: Status post big toe amputation. Leandro Catalan MD on March 06, 2017 at 18:51 Board Certified Radiologist. This report was verified electronically.
[2017-03-06] MEDS: SODIUM CHLORIDE 0.9% FLUSH 10 ML FLUSH IV FLUSH SCH (21:46)
[2017-03-06] MEDS: EZETIMIBE 10 MG TAB PO SCH (21:46)
[2017-03-06] MEDS: ACETAMINOPHEN/HYDROcodone 325 MG/5 MG TAB PO PRN (21:47)
[2017-03-06] MEDS: INSULIN DETEMIR 100 UNITS/ML VIAL SQ SCH (21:48)
[2017-03-06] MEDS: DEXMEDETOMIDINE INJ 1,000 MCG in SODIUM CHLOR 0.9% 250 ML INJ 240 ML IV PRN (22:04)
[2017-03-07] VITALS (8 sets, daily range): BP systolic 101–126; BP diastolic 55–65; PULSE 60–83; RESP 15–20; TEMP 97.3–98; O2SAT 96–100
[2017-03-07] MEDS: PIPERACIL-TAZO 3.375 GM PREMIX 50 ML IV SCH ×3 (03:42→16:46)
[2017-03-07] MEDS: HEPARIN SODIUM - SQ 10,000 UNITS/ML VIAL SQ SCH ×3 (06:00→21:37)
[2017-03-07] MEDS: LEVOTHYROXINE SODIUM 25 MCG TAB PO SCH (07:02)
[2017-03-07] MEDS: INSULIN ASPART SUPPLEMENTAL SCALE SQ SCH ×4 (07:36→23:35)
[2017-03-07] MEDS: NICOTINE 21 MG/24 HR PATCH T-DERMAL SCH (08:58)
[2017-03-07] MEDS: GABAPENTIN 100 MG CAP PO SCH ×4 (08:58→21:36)
[2017-03-07] MEDS: CARVEDILOL 6.25 MG TAB PO SCH ×2 (08:58→21:36)
[2017-03-07] MEDS: ATORVASTATIN 80 MG TAB PO SCH (08:58)
[2017-03-07] MEDS: QUEtiapine FUMARATE 100 MG TAB PO SCH ×2 (08:59→21:35)
[2017-03-07] MEDS: SPIRONOLACTONE 25 MG TAB PO SCH ×2 (08:59→17:23)
[2017-03-07] MEDS: VENLAFAXINE HCL XR 75 MG CAP PO SCH (08:59)
[2017-03-07] MEDS: FUROSEMIDE 40 MG TAB PO SCH (08:59)
[2017-03-07] MEDS: AZITHROMYCIN 250 MG TAB PO SCH (08:59)
[2017-03-07] MEDS: FERROUS SULFATE 325 MG (65 MG ELEMENTAL IRON) TAB PO SCH ×2 (08:59→21:35)
[2017-03-07] MEDS: ASPIRIN 81 MG CHEW TAB PO SCH (08:59)
[2017-03-07] MEDS: TICAGRELOR 90 MG TAB PO SCH ×2 (09:00→21:35)
[2017-03-07] MEDS: SODIUM CHLORIDE 0.9% FLUSH 10 ML FLUSH IV FLUSH SCH ×2 (09:00→21:36)
[2017-03-07] MEDS: REMOVE OLD PATCH T-DERMAL SCH (09:00)
[2017-03-07] MEDS: LOSARTAN 25 MG TAB PO SCH (09:52)
[2017-03-07] MEDS: ACETAMINOPHEN/HYDROcodone 325 MG/5 MG TAB PO PRN (11:07)
--- NOTE | 2017-03-07 12:17 | HHI.PR ---
Subjective Remarks This is a pleasant 61 y/o male with Left foot cellulitis, CAD status post previous CABG, with recent NSTEMI 01/05/17 status post PCI and stent placement, Atrial fibrillation status post Ablation History of V tach, Hypertension, Severe left ventricular systolic dysfunction, Ischemic cardiomyopathy, COPD, Hypothyroidism, DM II, who was just recently discharged 02/06/17. came with discoloration of the left great toe, MRI of the foot was obtained at that time which showed soft tissue ulceration and no evidence of osteomyelitis. Chest x- ray shows some worsening of the left lower lobe infiltrate. Dr. Esparza was contacted while patient still in the ED and requested at CTA with runoff be ordered and he will see him in consultation. Patient was given vancomycin and Zosyn. followed by account development specialist, the patient has PAD, recommended to continue Brilinta and Baby Aspirin to prevent stent thrombosis. Vascular operation specialist following, the patient has Severe Stenosis of the distal iliac arteries and bilateral common femoral arteries, severe stenosis of the SFA Bilateral, Status post revascularization of the left leg with the common femoral endarterectomy patch and superficial femoral artery balloon angioplasty has severe distal trifurcation disease and the severe SFA vascular occlusive disease. 03/03/17, recommended Podiatry for Hallux amputation Scheduled for later today by Doctor Eid. he will need Carotid Endarterectomy, he has Total left sided occlusion and right sided hemodynamically significant stenosis. ID specialist following, with Diagnosis of Worsening sepsis, Leukocytosis over 20, worsening renal function, suspected LLL PNA, to continue Vancomycin Zosyn and Azithromycin for five days. 03/06: Seen in his bedroom in the presence of his Mrs. Vicki Ovalle, he will have amputation of the Left Hallux later today. 03/07: On Vancomycin and Zosyn, status post Left Hallux and first Metatarsal Head amputation POD#1, Azithromycin for 5 days. stable seen in his room his does not want any type of narcotic for her wants me to remove all narcotics from his chart, he has no complaint, will be transferred today out of the unit. No nausea, vomit or diarrhea. Objective Vital Signs Date Time Temp Pulse Resp B/P (MAP) Pulse Ox O2 Delivery O2 Flow Rate FiO2 03/07/17 10:31 99 21 03/07/17 08:00 97.3 74 20 119/62 (81) 99 03/07/17 04:06 99 03/07/17 04:00 97.5 62 15 115/65 (82) 100 03/07/17 00:00 97.5 60 15 101/55 (70) 97 03/06/17 22:47 14 03/06/17 20:00 97.8 61 19 121/50 (73) 99 03/06/17 18:15 97.8 62 20 113/62 (79) 97 Nasal Cannula 2 03/06/17 18:00 59 22 114/58 (76) 97 Nasal Cannula 2 03/06/17 17:45 61 19 116/58 (77) 97 Nasal Cannula 2 03/06/17 17:43 97.4 60 20 118/68 (85) 97 Nasal Cannula 3 I/O 03/06/17 03/06/17 03/06/17 03/07/17 03/07/17 03/07/17 06:59 14:59 22:59 06:59 14:59 22:59 Intake Total 472 ml 100 ml 851 ml 461 ml Output Total 1350 ml 1850 ml 925 ml Balance -878 ml 100 ml -999 ml -464 ml Intake Oral 360 ml 0 ml IV Total 112 ml 100 ml 551 ml 461 ml Other 300 ml Output Urine Total 1350 ml 1800 ml 925 ml Estimated Blood Loss 50 ml # Bowel Movements 0 1 1 Result Diagram: 03/06/17 0357 03/06/17 0357 Imaging Last Impressions Foot X-Ray 03/06/17 0000 Signed Impressions: Service Date/Time: Monday, March 06, 2017 17:50 - CONCLUSION: Status post big toe amputation. Leandro Catalan MD Chest X-Ray 03/05/17 0000 Signed Impressions: Service Date/Time: Sunday, March 05, 2017 03:06 - CONCLUSION: Bilateral interstitial and airspace opacity slightly increased from the prior study. The appearance and distribution favors pulmonary edema. Justus Martinez MD Aorta w/Runoff CTA 02/27/17 0000 Signed Impressions: Service Date/Time: Monday, February 27, 2017 17:08 - CONCLUSION: 1. Severe atherosclerotic disease of the abdominal aorta and its major branches and within both lower extremities. There is a moderate to severe stenosis of the midportion of the superficial femoral artery bilaterally but no vessel occlusion is identified. 2. Moderate size left pleural effusion. Justus Martinez MD Procedures s/p revascularization of the left leg with the common femoral endarterectomy patch and superficial femoral artery balloon angioplasty Other Results Laboratory Tests Test 02/27/17 14:45 02/27/17 16:45 02/28/17 19:00 03/01/17 06:32 Lactic Acid Level 1.7 mmol/L Urine Color YELLOW Urine Turbidity CLEAR Urine pH 5.5 Urine Specific [place] 1.011 Urine Protein TRACE mg/dL Urine Glucose (UA) NEG mg/dL Urine Ketones NEG mg/dL Urine Occult Blood NEG Urine Nitrite NEG Urine Bilirubin NEG Urine Urobilinogen LESS THAN 2.0 MG/DL Urine Leukocyte Esterase NEG Microscopic Urinalysis Comment CATH-CULT NOT IND Iron Level 11 MCG/DL Total Iron Binding Capacity 294 MCG/DL Percent Iron Saturation 3.7 % Ferritin 145 NG/ML Triglycerides Level 80 MG/DL Cholesterol Level 86 MG/DL LDL Cholesterol 50 MG/DL HDL Cholesterol 19.9 MG/DL Cholesterol/HDL Ratio 4.32 RATIO Random Vancomycin Level 6.1 COMMENT Test 03/03/17 21:50 03/05/17 02:00 03/05/17 16:39 03/06/17 03:57 Blood Gas Puncture Site RT RADIAL Blood Gas Patient Temperature 98.6 Blood Gas HCO3 18 mmol/L Blood Gas Base Excess -5.0 mmol/L Blood Gas Oxygen Saturation 98 % Arterial Blood pH 7.48 Arterial Blood Partial Pressure CO2 25 mmHg Arterial Blood Partial Pressure O2 109 mmHg Arterial Blood Oxygen Content 13.4 Vol % Arterial Blood Carboxyhemoglobin 1.3 % Arterial Blood Methemoglobin 0.0 % Blood Gas Hemoglobin 9.7 G/DL Oxygen Delivery Device NASAL CANNULA Blood Gas Liter Flow 3 L/M Troponin I 0.12 NG/ML B-Type Natriuretic Peptide 1091 PG/ML Prothrombin Time 14.4 SEC Prothromb Time International Ratio 1.3 RATIO Activated Partial Thromboplast Time 32.2 SEC Vancomycin Level Trough 17.4 MCG/ML White Blood Count 19.3 TH/MM3 Red Blood Count 3.92 MIL/MM3 Hemoglobin 10.6 GM/DL Hematocrit 32.2 % Mean Corpuscular Volume 82.1 FL Mean Corpuscular Hemoglobin 26.9 PG Mean Corpuscular Hemoglobin Concent 32.8 % Red Cell Distribution Width 17.7 % Platelet Count 453 TH/MM3 Mean Platelet Volume 7.0 FL Neutrophils (%) (Auto) 89.6 % Lymphocytes (%) (Auto) 5.3 % Monocytes (%) (Auto) 4.1 % Eosinophils (%) (Auto) 0.5 % Basophils (%) (Auto) 0.5 % Neutrophils # (Auto) 17.3 TH/MM3 Lymphocytes # (Auto) 1.0 TH/MM3 Monocytes # (Auto) 0.8 TH/MM3 Eosinophils # (Auto) 0.1 TH/MM3 Basophils # (Auto) 0.1 TH/MM3 CBC Comment DIFF FINAL Differential Comment Blood Urea Nitrogen 22 MG/DL Creatinine 0.98 MG/DL Random Glucose 153 MG/DL Total Protein 7.0 GM/DL Albumin 2.1 GM/DL Calcium Level 8.6 MG/DL Phosphorus Level 3.1 MG/DL Magnesium Level 1.9 MG/DL Alkaline Phosphatase 66 U/L Aspartate Amino Transf (AST/SGOT) 26 U/L Alanine Aminotransferase (ALT/SGPT) 36 U/L Total Bilirubin 0.6 MG/DL Sodium Level 138 MEQ/L Potassium Level 4.0 MEQ/L Chloride Level 106 MEQ/L Carbon Dioxide Level 22.2 MEQ/L Anion Gap 10 MEQ/L Estimat Glomerular Filtration Rate 78 ML/MIN Hemoglobin A1c 6.9 % Free Thyroxine 1.23 NG/DL Thyroid Stimulating Hormone 3rd Gen 2.880 uIU/ML Objective Remarks GENERAL: Obesity, no acute distress. SKIN: Warm and dry. Left lower extremity is swollen and erythematous tenderness in foot also has the wound wound HEAD: Atraumatic. Normocephalic. NECK: Trachea midline. No JVD. Neck is supple CARDIOVASCULAR: Regular rate and rhythm. S1-S2 no S3 or S4 no heave or thrill or rub or gallop RESPIRATORY: No accessory muscle use. Clear to auscultation. Breath sounds equal bilaterally. GASTROINTESTINAL: Abdomen soft, non-tender, nondistended. Hepatic and splenic margins not palpable. Obese MUSCULOSKELETAL:. Left Foot dressed. NEUROLOGICAL: Awake and alert. No obvious cranial nerve deficits. PSYCHIATRIC: Appropriate mood and affect. Medications and IVs Current Medications Medications (Trade) Dose Ordered Sig/Hugo Route Start Time Stop Time Status Last Admin (D50w (Vial) Inj) 50 ml UNSCH PRN IV 02/27/17 16:45 (Glucagon Inj) 1 mg UNSCH PRN OTHER 02/27/17 16:45 (NovoLOG SUPPLEMENTAL SCALE) 1 ACHS SLIDING SCALE SQ 02/27/17 21:00 03/07/17 11:06 Piperacillin Sod/ Tazobactam Sod 50 ml @ 100 mls/hr Q6H IV 02/27/17 21:00 03/07/17 08:57 Pharmacy Profile Note 0 ml @ 0 mls/hr UNSCH OTHER 02/27/17 16:45 (Aspirin Chew) 81 mg DAILY PO 02/28/17 09:00 03/07/17 08:59 (Coreg) 6.25 mg BID PO 02/27/17 21:00 03/07/17 08:58 (Zetia) 10 mg HS PO 02/27/17 21:00 03/06/17 21:46 (Ferrous Sulfate) 325 mg BID PO 02/27/17 21:00 03/07/17 08:59 (Neurontin) 100 mg QID PO 02/27/17 18:00 03/07/17 08:58 (Synthroid) 25 mcg DAILY@0600 PO 02/28/17 06:00 03/07/17 07:02 (Aldactone) 25 mg BIDPC PO 02/27/17 18:00 Future hold 03/07/17 08:59 (Brilinta) 90 mg BID PO 02/27/17 21:00 03/07/17 09:00 ([place] 5-325 Mg) 1 tab Q4H PRN PO 02/27/17 19:00 03/06/17 21:47 ([place] 5-325 Mg) 2 tab Q4H PRN PO 02/28/17 11:00 03/07/17 11:07 (Lipitor) 80 mg DAILY PO 03/01/17 09:00 03/07/17 08:58 Vancomycin HCl 1750 mg/Sodium Chloride 517.5 ml @ 257.5 mls/ hr Q24H IV 03/01/17 16:00 03/06/17 14:48 (Zithromax) 250 mg DAILY PO 03/02/17 09:00 03/07/17 08:59 (Lasix) 40 mg DAILY PO 03/03/17 09:00 03/07/17 08:59 (Albuterol Neb) 2.5 mg Q4HR NEB PRN INH 03/02/17 21:00 03/03/17 21:12 (Heparin Inj) 5,000 units Q8HR SQ 03/03/17 06:00 03/05/17 14:53 (Levemir Inj) 10 units HS SQ 03/03/17 21:00 03/06/17 21:48 (Haldol Inj) 4 mg Q6H PRN IM 03/03/17 14:30 03/03/17 20:43 (SEROquel) 100 mg BID PO 03/03/17 21:00 03/07/17 08:59 (Habitrol 21 Mg Patch.24 Hr) 1 patch DAILY T-DERMAL 03/04/17 00:00 03/07/17 08:58 Miscellaneous Information 1 DAILY T-DERMAL 03/04/17 09:00 03/07/17 09:00 (KlonoPIN) 0.5 mg BID PRN PO 03/04/17 09:00 Dexmedetomidine HCl 1000 mcg/ Sodium Chloride 250 ml @ 5.53 mls/hr TITRATE PRN IV 03/04/17 20:00 03/06/17 22:04 (Effexor Xr) 75 mg DAILY PO 03/04/17 22:15 03/07/17 08:59 (Cozaar) 25 mg DAILY PO 03/06/17 12:00 03/07/17 09:52 (Tylenol) 650 mg Q4H PRN PO 03/05/17 14:00 03/06/17 13:11 (NS Flush) 2 ml UNSCH PRN IV FLUSH 03/06/17 17:30 (NS Flush) 2 ml BID IV FLUSH 03/06/17 21:00 03/07/17 09:00 (Tylenol) 650 mg Q6H PRN PO 03/06/17 17:30 (Dilaudid Pf Inj) 1 mg Q3H PRN IV 03/06/17 17:30 (Roxicodone) 5 mg Q4H PRN PO 03/06/17 17:30 (Dilaudid) 2 mg Q4H PRN PO 03/06/17 17:30 (Narcan Inj) 0.4 mg UNSCH PRN IV 03/06/17 17:30 Miscellaneous Information ALL NURSING DEPARTME... UNSCH PRN .XX 03/06/17 17:44 03/07/17 17:43 A/P Assessment and Plan ischemic left foot with gangrene of the left great toe s/p status post revascularization of the left leg with the common femoral endarterectomy patch and superficial femoral artery balloon angioplasty Status post left great toe amputation by Podiatry. Dr. Eid sepsis due to Cellulitis/Diabetic foot ulcer Continue Vancomycin, Zosyn and Azithromycin. blood cultures negative in five days. ID and podiatry following. CAD with ischemic cardiomyopathy previous CABG recent NSTEMI status post cardiac catheterization stent implantation 12/23 History of V. tach History of atrial fibrillation status post ablation Hypertension Severe left ventricular systolic dysfunction continue aspirin 81mg and Brilinta 90mg BID, Lipitor 80mg Continue Coreg and Losartan continue Lasix and Aldactone cardiology following. acute kidney injury Improved. Type 2 DM Diabetic neuropathy Better control. Hold patient's metformin, glipizide and pioglitazone Accu-Cheks and insulin sliding scale Continue Levemir 10 units daily at bedtime Continue patient's home dose of gabapentin 100 mg by mouth 4 times a day Diabetic diet Anemia s/p PRBC transfusion- H/H now improved- will monitor Continue patient on home dose of ferrous sulfate 325 mg by mouth twice a day Hypothyroidism Continue patient on home dose of levothyroxine 25 g daily Psychosis The patient is been as outpatient on Effexor and in house is on Seroquel, he is doing better now, but his asked about the need to come back on Effexor I will monitor his behavior and continue Seroquel is been well tolerated by the patient. Full code. DVT prophylaxis; subq Heparin Discussed with Patient His . all questions answered to the best of my abilities. Removed narcotics as asked by his . Discharge Planning Once Cleared by specialists. Marques Dick MD Mar 07, 2017 12:17
--- NOTE | 2017-03-07 12:56 | PD.POD ---
Subjective Podiatric Problems History of gangrene left hallux Pain scale used: 0-10 numeric scale Pain score: 1 Remarks Patient is a 61-year-old diabetic male with peripheral vascular disease who is one-day status post amputation of the left hallux. Patient was without complaints of pain or discomfort. He would like to get out of bed. Past Med/Surg/Social History Past Medical History Endocrine: REPORTS HX OF: Diabetes mellitus Respiratory: REPORTS HX OF: Other respiratory history Cardiovascular: REPORTS HX OF: Atrial fibrillation, Heart failure, Hypertension , Peripheral vascular dz Genitourinary: REPORTS HX OF: Kidney disease Genetic/metabolic: DENIES HX OF: Cystic fibrosis Past Surgical History Cardiovascular: REPORTS HX OF: Angioplasty, CABG surgery, Carotid endarterectomy, Coronary stent, Pacemaker Social History Smoking Status: Former Smoker Review of Systems Notes No changes in his 14 point review of systems exam since he was seen yesterday Objective Vital Signs Vital Signs Date Time Temp Pulse Resp B/P (MAP) Pulse Ox O2 Delivery O2 Flow Rate FiO2 03/07/17 12:00 98.0 70 17 122/65 (84) 96 03/07/17 10:31 99 21 03/07/17 08:00 97.3 74 20 119/62 (81) 99 03/07/17 04:06 99 03/07/17 04:00 97.5 62 15 115/65 (82) 100 03/07/17 00:00 97.5 60 15 101/55 (70) 97 03/06/17 22:47 14 03/06/17 20:00 97.8 61 19 121/50 (73) 99 03/06/17 18:15 97.8 62 20 113/62 (79) 97 Nasal Cannula 2 03/06/17 18:00 59 22 114/58 (76) 97 Nasal Cannula 2 03/06/17 17:45 61 19 116/58 (77) 97 Nasal Cannula 2 03/06/17 17:43 97.4 60 20 118/68 (85) 97 Nasal Cannula 3 Coded Allergies: cyclobenzaprine (Unverified Allergy, Severe, Flushing, 02/27/17) REDNESS lisinopril (Unverified Allergy, Unknown, Swelling, 02/27/17) ANGIOEDEMA Medications and IVs Current Medications Vancomycin HCl 1000 mg/Sodium Chloride 250 ml @ 250 mls/hr ONCE ONCE IV Last administered on 02/27/17 16:42; Start 02/27/17 at 14:15; Stop 02/27/17 at 15:14 ; Status DC Piperacillin Sod/ Tazobactam Sod 50 ml @ 100 mls/hr ONCE ONCE IV Last administered on 02/27/17 14:56; Start 02/27/17 at 14:15; Stop 02/27/17 at 14:44 ; Status DC Morphine Sulfate (Morphine Inj) 4 mg ONCE ONCE IV PUSH Last administered on 14:56; Start 02/27/17 at 14:15; Stop 02/27/17 at 14:16; Status DC Ondansetron HCl (Zofran Inj) 4 mg ONCE ONCE IV PUSH Last administered on 14:53; Start 02/27/17 at 14:15; Stop 02/27/17 at 14:16; Status DC Dextrose (D50w (Vial) Inj) 50 ml UNSCH PRN IV HYPOGLYCEMIA-SEE COMMENTS; Start 02/27/17 at 16:45 Glucagon (Glucagon Inj) 1 mg UNSCH PRN OTHER HYPOGLYCEMIA-SEE COMMENTS; Start 02/27/17 at 16:45 Insulin Aspart (NovoLOG SUPPLEMENTAL SCALE) 1 ACHS SLIDING SCALE SQ Last administered on 03/07/17 11:06; Start 02/27/17 at 21:00 Piperacillin Sod/ Tazobactam Sod 50 ml @ 100 mls/hr Q6H IV Last administered on 03/07/17 08:57; Start 02/27/17 at 21:00 Pharmacy Profile Note 0 ml @ 0 mls/hr UNSCH OTHER ; Start 02/27/17 at 16:45 Aspirin (Aspirin Chew) 81 mg DAILY PO Last administered on 03/07/17 08:59; Start 02/28/17 at 09:00 Carvedilol (Coreg) 6.25 mg BID PO Last administered on 03/07/17 08:58; Start 02/27/17 at 21:00 Clonazepam (KlonoPIN) 0.5 mg BID PO Last administered on 03/03/17 19:59; Start 02/27/17 at 21:00; Stop 03/04/17 at 08:49; Status DC EZETIMIBE (Zetia) 10 mg HS PO Last administered on 03/06/17 21:46; Start 02/27 at 21:00 Ferrous Sulfate (Ferrous Sulfate) 325 mg BID PO Last administered on 03/07/17 08:59; Start 02/27/17 at 21:00 Furosemide (Lasix) 80 mg BID PO Last administered on 03/01/17 20:05; Start at 21:00; Stop 03/01/17 at 20:26; Status DC Gabapentin (Neurontin) 100 mg QID PO Last administered on 03/07/17 08:58; Start 02/27/17 at 18:00 Levothyroxine Sodium (Synthroid) 25 mcg DAILY@0600 PO Last administered on 03/07 07:02; Start 02/28/17 at 06:00 Losartan Potassium (Cozaar) 25 mg DAILY PO Last administered on 03/04/17 08:47 ; Start 02/28/17 at 09:00; Stop 03/05/17 at 11:06; Status DC Spironolactone (Aldactone) 25 mg BIDPC PO Last administered on 03/07/17 08:59 ; Start 02/27/17 at 18:00; Status Future hold Ticagrelor (Brilinta) 90 mg BID PO Last administered on 03/07/17 09:00; Start 02/27/17 at 21:00 Non-Formulary Medication 40 mg HS PO ; Start 02/27/17 at 21:00; Status UNV Acetaminophen/ Hydrocodone Bitart ([place] 5-325 Mg) 1 tab Q4H PRN PO PAIN SCALE 3 TO 5 Last administered on 03/06/17 21:47; Start 02/27/17 at 19:00; Stop 03/07/17 at 12:48; Status DC Hydromorphone HCl (Dilaudid Pf Inj) 0.5 mg Q4H PRN IV PUSH PAIN 6-10 Last administered on 02/28/17 00:15; Start 02/27/17 at 19:00; Stop 02/28/17 at 09:51 ; Status DC Pravastatin Sodium (Pravachol) 80 mg HS PO Last administered on 02/27/17 23:53 ; Start 02/27/17 at 21:00; Stop 02/28/17 at 16:41; Status DC Vancomycin HCl 1000 mg/Sodium Chloride 250 ml @ 250 mls/hr ONCE ONCE IV Last administered on 02/28/17 00:12; Start 02/27/17 at 21:00; Stop 02/27/17 at 21:59 ; Status DC Vancomycin HCl 1750 mg/Sodium Chloride 517.5 ml @ 257.5 mls/ hr Q24H IV ; Start 02/28/17 at 21:00; Stop 03/01/17 at 13:37; Status DC Miscellaneous Information SPECIFIC LAB TO BE MARIO... ONCE ONCE .XX ; Start 03/02 at 20:45; Stop 03/02/17 at 20:46; Status Cancel Hydromorphone HCl (Dilaudid Pf Inj) 1 mg Q4H PRN IV PUSH BREAKTHROUGH PAIN; Start 02/28/17 at 11:00; Stop 03/06/17 at 19:43; Status DC Acetaminophen/ Hydrocodone Bitart ([place] 5-325 Mg) 2 tab Q4H PRN PO PAIN 6-10 Last administered on 03/07/17 11:07; Start 02/28/17 at 11:00; Stop 03/07/17 at 12:48; Status DC Atorvastatin Calcium (Lipitor) 80 mg DAILY PO Last administered on 03/07/17 08 :58; Start 03/01/17 at 09:00 Sodium Chloride 250 ml @ 15 mls/hr ONCE ONCE IV Last administered on 21:30; Start 02/28/17 at 17:30; Stop 03/01/17 at 10:09; Status DC Furosemide (Lasix Inj) 20 mg ONCE ONCE IV Last administered on 03/01/17 01:36 ; Start 02/28/17 at 17:30; Stop 02/28/17 at 17:32; Status DC Cefazolin Sodium/ Dextrose 50 ml @ 100 mls/hr FLEET ASSISTANT IV ; Start 03/01/17 at 10:00; Stop 03/04/17 at 09:59; Status DC Sodium Chloride 250 ml @ 15 mls/hr ONCE ONCE IV Last administered on 13:20; Start 03/01/17 at 12:30; Stop 03/02/17 at 05:09; Status DC Furosemide (Lasix Inj) 20 mg UNSCH X1 PRN IV AFTER 1ST UNIT OF BLOOD Last administered on 03/01/17 17:13; Start 03/01/17 at 12:30; Stop 03/01/17 at 23:59 ; Status DC Vancomycin HCl 1750 mg/Sodium Chloride 517.5 ml @ 257.5 mls/ hr Q24H IV Last administered on 03/06/17 14:48; Start 03/01/17 at 16:00 Miscellaneous Information SPECIFIC LAB TO BE DRAWN:VANCOMYCIN TROUGH DATE TO... ONCE ONCE .XX ; Start 03/03/17 at 15:45; Stop 03/03/17 at 15:46; Status DC Azithromycin (Zithromax) 500 mg ONCE ONCE PO Last administered on 03/01/17 20 :07; Start 03/01/17 at 20:00; Stop 03/01/17 at 20:02; Status DC Azithromycin (Zithromax) 250 mg DAILY PO Last administered on 03/07/17 08:59; Start 03/02/17 at 09:00 Furosemide (Lasix Inj) 20 mg UNSCH X1 PRN IV PUSH AFTER 2ND UNIT OF PRBC Last administered on 03/02/17 01:09; Start 03/01/17 at 20:30; Stop 03/02/17 at 16:00 ; Status DC Furosemide (Lasix) 40 mg ONCE ONCE PO Last administered on 03/01/17 21:00; Start 03/01/17 at 21:00; Stop 03/01/17 at 21:01; Status DC Furosemide (Lasix) 80 mg BID PO ; Start 03/02/17 at 09:00; Stop 03/02/17 at 09: 00; Status DC Lactated Ringer's 1,000 ml @ 30 mls/hr Q24H PRN IV SEE LABEL COMMENTS; Start at 00:30; Stop 03/05/17 at 00:29; Status DC Povidone Iodine (Betadine 5% Antisepsis Kit) 1 applic FLEET ASSISTANT PRN EACH NARE SEE LABEL COMMENTS; Start 03/02/17 at 00:30; Stop 03/05/17 at 00:29; Status DC Chlorhexidine Gluconate (Chlorhexidine 2% Cloth) 3 pack FLEET ASSISTANT PRN TOPICAL SEE LABEL COMMENTS; Start 03/02/17 at 00:30; Stop 03/05/17 at 00:29; Status DC Furosemide (Lasix) 40 mg DAILY PO Last administered on 03/07/17 08:59; Start 03/03/17 at 09:00 Heparin Sodium (Porcine) (Heparin Inj) 10,000 units STK-MED ONCE .ROUTE Last administered on 03/02/17 12:27; Start 03/02/17 at 09:53; Stop 03/02/17 at 09:54 ; Status DC Acetaminophen 100 ml @ As Directed STK-MED ONCE IV ; Start 03/02/17 at 09:56; Stop 03/02/17 at 09:57; Status DC Midazolam HCl (Versed Inj) 2 mg STK-MED ONCE .ROUTE ; Start 03/02/17 at 09:57; Stop 03/02/17 at 09:58; Status DC Famotidine (Pepcid Inj) 20 mg STK-MED ONCE .ROUTE ; Start 03/02/17 at 09:57; Stop 03/02/17 at 09:58; Status DC Sugammadex Sodium (Bridion Inj) 200 mg STK-MED ONCE IV PUSH ; Start 03/02/17 at 09:57; Stop 03/02/17 at 09:58; Status DC Fentanyl Citrate (fentaNYL INJ) 250 mcg STK-MED ONCE .ROUTE ; Start 03/02/17 at 10:00; Stop 03/02/17 at 10:01; Status DC Bupivacaine HCl/ Epinephrine Bitart (Sensorcaine-Epinephrine Pf 0.5% Inj) 30 ml STK-MED ONCE .ROUTE ; Start 03/02/17 at 11:51; Stop 03/02/17 at 11:52; Status DC Heparin Sodium (Porcine) (Heparin Inj) 10,000 units STK-MED ONCE .ROUTE Last administered on 03/02/17 12:03; Start 03/02/17 at 12:48; Stop 03/02/17 at 12:49 ; Status DC Iohexol 35 ml @ 0 mls/hr ONCE ONCE IV ; Start 03/02/17 at 15:21; Stop 03/02/17 at 15:45; Status DC Morphine Sulfate (*morphine INJ PERIprocedure ONLY) 8 mg STK-MED ONCE .ROUTE Last administered on 03/02/17 15:46; Start 03/02/17 at 15:46; Stop 03/02/17 at 15:47; Status DC Albuterol Sulfate (*ALBUTEROL NEB PERIprocedure ONLY) 2.5 mg STK-MED ONCE NEB Last administered on 03/02/17 15:47; Start 03/02/17 at 15:47; Stop 03/02/17 at 15:48; Status DC Phenylephrine HCl (Neosynephrine Inj) 40 mg STK-MED ONCE .ROUTE ; Start at 15:52; Stop 03/02/17 at 15:53; Status DC Bacitracin (Baciguent Oint) 15 applic STK-MED ONCE .ROUTE ; Start 03/02/17 at 16 :01; Stop 03/02/17 at 16:02; Status DC Morphine Sulfate (*morphine INJ PERIprocedure ONLY) 8 mg STK-MED ONCE .ROUTE Last administered on 03/02/17 16:26; Start 03/02/17 at 16:26; Stop 03/02/17 at 16:27; Status DC Haloperidol Lactate (Haldol Inj) 5 mg STK-MED ONCE .ROUTE Last administered on 03/02/17 16:40; Start 03/02/17 at 16:40; Stop 03/02/17 at 16:41; Status DC Haloperidol Lactate (Haldol Inj) 2.5 mg NOW ONCE IV PUSH ; Start 03/02/17 at 17 :00; Stop 03/02/17 at 17:01; Status DC Albuterol Sulfate (Albuterol Neb) 2.5 mg Q4HR NEB PRN INH SOB/WHEEZING Last administered on 03/03/17 21:12; Start 03/02/17 at 21:00 Heparin Sodium (Porcine) (Heparin Inj) 5,000 units Q8HR SQ Last administered on 03/05/17 14:53; Start 03/03/17 at 06:00 Insulin Detemir (Levemir Inj) 10 units HS SQ Last administered on 03/06/17 21: 48; Start 03/03/17 at 21:00 Haloperidol Lactate (Haldol Inj) 4 mg Q6H PRN IM AGITATION Last administered on 03/03/17 20:43; Start 03/03/17 at 14:30 Quetiapine Fumarate (SEROquel) 100 mg BID PO Last administered on 03/07/17 08: 59; Start 03/03/17 at 21:00 Dexmedetomidine HCl (Precedex Inj) 200 mcg STK-MED ONCE .ROUTE Last administered on 03/03/17 22:39; Start 03/03/17 at 22:39; Stop 03/03/17 at 22:40 ; Status DC Dexmedetomidine HCl (Precedex Inj) 200 mcg STK-MED ONCE .ROUTE Last administered on 03/03/17 23:17; Start 03/03/17 at 23:17; Stop 03/03/17 at 23:18 ; Status DC Dexmedetomidine HCl 200 mcg/ Sodium Chloride 50 ml @ 5.53 mls/hr TITRATE PRN IV Desired RASS Last administered on 03/04/17 00:55; Start 03/03/17 at 23:45; Stop 03/04/17 at 19:51; Status DC Nicotine (Habitrol 21 Mg Patch.24 Hr) 1 patch DAILY T-DERMAL Last administered on 03/07/17 08:58; Start 03/04/17 at 00:00 Miscellaneous Information 1 DAILY T-DERMAL Last administered on 03/07/17 09:00 ; Start 03/04/17 at 09:00 Clonazepam (KlonoPIN) 0.5 mg BID PRN PO Anxiety; Start 03/04/17 at 09:00 Dexmedetomidine HCl 1000 mcg/ Sodium Chloride 250 ml @ 5.53 mls/hr TITRATE PRN IV Desired RASS Last administered on 03/06/17 22:04; Start 03/04/17 at 20: 00 Venlafaxine HCl (Effexor) 75 mg DAILY PO Last administered on 03/04/17 22:02; Start 03/04/17 at 20:45; Stop 03/04/17 at 22:08; Status DC Venlafaxine HCl (Effexor Xr) 75 mg DAILY PO Last administered on 03/07/17 08: 59; Start 03/04/17 at 22:15 Miscellaneous Information SPECIFIC LAB TO BE DRAWN:[facility]... ONCE ONCE .XX ; Start 03/05/17 at 15:45; Stop 03/05/17 at 15:46; Status DC Potassium Bicarb/ Potassium Chloride (K-Lyte Cl Eff) 25 meq ONCE ONCE PO Last administered on 03/05/17 03:18; Start 03/05/17 at 03:15; Stop 03/05/17 at 03:16; Status DC Potassium Chloride 100 ml @ 50 mls/hr ONCE ONCE IV Last administered on 03:18; Start 03/05/17 at 03:15; Stop 03/05/17 at 05:14; Status DC Losartan Potassium (Cozaar) 25 mg DAILY PO Last administered on 03/07/17 09:52 ; Start 03/06/17 at 12:00 Acetaminophen (Tylenol) 650 mg Q4H PRN PO PAIN SCALE 1 TO 6 Last administered on 03/06/17 13:11; Start 03/05/17 at 14:00 Miscellaneous Information SPECIFIC LAB TO BE DRAWN:[facility]ANCO TROUGH DATE TO BE DR... ONCE ONCE .XX ; Start 03/07/17 at 15:45; Stop 03/07/17 at 15:46; Status Cancel Bupivacaine HCl (Marcaine Pf 0.5% Inj) 30 ml STK-MED ONCE .ROUTE Last administered on 03/06/17 16:41; Start 03/06/17 at 16:12; Stop 03/06/17 at 16:13 ; Status DC Lidocaine HCl (Xylocaine 1% Inj (50 ml)) 50 ml STK-MED ONCE .ROUTE Last administered on 03/06/17 16:41; Start 03/06/17 at 16:13; Stop 03/06/17 at 16:14 ; Status DC Sugammadex Sodium (Bridion Inj) 200 mg STK-MED ONCE IV PUSH ; Start 03/06/17 at 17:00; Stop 03/06/17 at 17:01; Status DC Sodium Chloride (NS Flush) 2 ml UNSCH PRN IV FLUSH FLUSH AFTER USING IV ACCESS ; Start 03/06/17 at 17:30 Sodium Chloride (NS Flush) 2 ml BID IV FLUSH Last administered on 03/07/17 09: 00; Start 03/06/17 at 21:00 Miscellaneous Information (Post-op Orders (for Pharmacy)) STAT ONCE XX ; Start 03/06/17 at 17:30; Stop 03/06/17 at 19:44; Status DC Acetaminophen (Tylenol) 650 mg Q6H PRN PO PAIN SCALE 1 TO 2; Start 03/06/17 at 17:30; Stop 03/07/17 at 12:48; Status DC Hydromorphone HCl (Dilaudid Pf Inj) 1 mg Q3H PRN IV BREAKTHROUGH PAIN; Start at 17:30; Stop 03/07/17 at 12:49; Status DC Oxycodone HCl (Roxicodone) 5 mg Q4H PRN PO PAIN SCALE 3 TO 5; Start 03/06/17 at 17:30 Hydromorphone HCl (Dilaudid) 2 mg Q4H PRN PO PAIN SCALE 6 TO 10; Start at 17:30; Stop 03/07/17 at 12:49; Status DC Naloxone HCl (Narcan Inj) 0.4 mg UNSCH PRN IV SEE LABEL COMMENTS; Start at 17:30 Fentanyl Citrate (fentaNYL INJ) 200 mcg STK-MED ONCE .ROUTE ; Start 03/06/17 at 17:50; Stop 03/06/17 at 17:51; Status DC Miscellaneous Information ALL NURSING DEPARTME... UNSCH PRN .XX SEE LABEL COMMENTS; Start 03/06/17 at 17:44; Stop 03/07/17 at 17:43 Other Results Laboratory Tests Test 03/06/17 03:57 White Blood Count 19.3 TH/MM3 Red Blood Count 3.92 MIL/MM3 Hemoglobin 10.6 GM/DL Hematocrit 32.2 % Mean Corpuscular Volume 82.1 FL Mean Corpuscular Hemoglobin 26.9 PG Mean Corpuscular Hemoglobin Concent 32.8 % Red Cell Distribution Width 17.7 % Platelet Count 453 TH/MM3 Mean Platelet Volume 7.0 FL Neutrophils (%) (Auto) 89.6 % Lymphocytes (%) (Auto) 5.3 % Monocytes (%) (Auto) 4.1 % Eosinophils (%) (Auto) 0.5 % Basophils (%) (Auto) 0.5 % Neutrophils # (Auto) 17.3 TH/MM3 Lymphocytes # (Auto) 1.0 TH/MM3 Monocytes # (Auto) 0.8 TH/MM3 Eosinophils # (Auto) 0.1 TH/MM3 Basophils # (Auto) 0.1 TH/MM3 CBC Comment DIFF FINAL Differential Comment Laboratory Tests Test 03/06/17 03:57 Blood Urea Nitrogen 22 MG/DL Creatinine 0.98 MG/DL Random Glucose 153 MG/DL Total Protein 7.0 GM/DL Albumin 2.1 GM/DL Calcium Level 8.6 MG/DL Phosphorus Level 3.1 MG/DL Magnesium Level 1.9 MG/DL Alkaline Phosphatase 66 U/L Aspartate Amino Transf (AST/SGOT) 26 U/L Alanine Aminotransferase (ALT/SGPT) 36 U/L Total Bilirubin 0.6 MG/DL Sodium Level 138 MEQ/L Potassium Level 4.0 MEQ/L Chloride Level 106 MEQ/L Carbon Dioxide Level 22.2 MEQ/L Anion Gap 10 MEQ/L Estimat Glomerular Filtration Rate 78 ML/MIN Hemoglobin A1c 6.9 % Free Thyroxine 1.23 NG/DL Thyroid Stimulating Hormone 3rd Gen 2.880 uIU/ML Exam-Podiatry Constitutional General appearance: comfortable Nutritional status: normal Orientation: alert and oriented x3 Dermatological Exam Skin Temp - Right: Within Normal Limits Skin Texture - Right: Within Normal Limits Skin Elasticity - Right: Within Normal Limits Skin Tugor - Right: Within Normal Limits Hair Growth - Right: Within Normal Limits Pigmentation - Right: Within Normal Limits Skin Temp - Left: Within Normal Limits Skin Texture - Left: Within Normal Limits Skin Elasticity - Left: Within Normal Limits Skin Tugor - Left: Within Normal Limits Hair Growth - Left: Within Normal Limits Pigmentation - Left: Within Normal Limits Other: Scars, Surgery,Injury Dressing to left foot is dry and intact. No signs of infection or cellulitis. No breakthrough bleeding noted. Vascular/Lymphatic Exam R Dorsails Pedis: Doppler L Dorsails Pedis: Doppler R Posterior Tibial: Doppler L Posterior Tibial: Doppler Neurologic Exam Present on right: Tingling, Paraesthesia Present on left: Tingling, Paraesthesia Musculoskeletal Exam Details Amputation of left hallux Muscle Strength Dorsiflexion (Right): Normal Plantarflexion (Right): Normal Inversion (Right): Normal Eversion (Right): Normal Digital (Right): Normal Dorsiflexion (Left): Normal Plantarflexion (Left): Normal Inversion (Left): Normal Eversion (Left): Normal Digital (Left): Normal Foot Range of Motion Dorsiflexion (Right): Normal Plantarflexion (Right): Normal Inversion (Right): Normal Eversion (Right): Normal Digital (Right): Normal Dorsiflexion (Left): Normal Plantarflexion (Left): Normal Inversion (Left): Normal Eversion (Left): Normal Digital (Left): Normal Assessment & Plan Diagnosis: (1) Gangrene of toe of left foot ICD Codes: I96 - Gangrene, not elsewhere classified Status: Resolved A/P PLAN: I will change his dressing tomorrow. If incision looks good. He can be discharged the day or so after. I will follow him in the wound center for wound care and postoperative care. He will not require home health care for dressing changes. Ismael Eid DPM Mar 07, 2017 12:56
[2017-03-07] MEDS ORDERED: PHARMACY ORDERED LAB ONE (15:45)
--- NOTE | 2017-03-07 17:02 | HHI.PR ---
Addendum to Inpatient Note Additional Information pt seen arounfd 1600 Full note to follow Aby Lucia MD Mar 07, 2017 17:02
[2017-03-07] MEDS: ACETAMINOPHEN 325 MG TAB PO PRN ×2 (17:23→23:42)
--- NOTE | 2017-03-07 17:26 | PD.CARD.PN ---
Subjective Subjective Remarks No CP or SOB, feels better, tolerated surgery well Objective Medications Active Medications Acetaminophen (Tylenol) 650 mg Q6H PRN PO; Start 03/06/17 at 17:30; Stop at 12:48; Status DC Fentanyl Citrate (fentaNYL INJ) 200 mcg STK-MED ONCE .ROUTE; Start 03/06/17 at 17:50; Stop 03/06/17 at 17:51; Status DC Hydromorphone HCl (Dilaudid Pf Inj) 1 mg Q3H PRN IV; Start 03/06/17 at 17:30; Stop 03/07/17 at 12:49; Status DC Hydromorphone HCl (Dilaudid) 2 mg Q4H PRN PO; Start 03/06/17 at 17:30; Stop at 12:49; Status DC Miscellaneous Information ALL NURSING DEPARTME... UNSCH PRN .XX; Start at 17:44; Stop 03/07/17 at 17:43 Miscellaneous Information [facility]... ONCE ONCE .XX; Start 03/07/17 at 15:45; Stop 03/07/17 at 15:46; Status Cancel Miscellaneous Information (Post-op Orders (for Pharmacy)) STAT ONCE XX; Start 03/06/17 at 17:30; Stop 03/06/17 at 19:44; Status DC Naloxone HCl (Narcan Inj) 0.4 mg UNSCH PRN IV; Start 03/06/17 at 17:30 Oxycodone HCl (Roxicodone) 5 mg Q4H PRN PO; Start 03/06/17 at 17:30; Stop 03/07 at 12:51; Status DC Sodium Chloride (NS Flush) 2 ml BID IV FLUSH Last administered on 03/07/17t 09: 00; Admin Dose 2 ML; Start 03/06/17 at 21:00 Sodium Chloride (NS Flush) 2 ml UNSCH PRN IV FLUSH; Start 03/06/17 at 17:30 Vital Signs / I&O Vital Signs Date Time Temp Pulse Resp B/P (MAP) Pulse Ox O2 Delivery O2 Flow Rate FiO2 03/07/17 12:00 98.0 70 17 122/65 (84) 96 03/07/17 10:31 99 21 03/07/17 08:00 97.3 74 20 119/62 (81) 99 03/07/17 04:06 99 03/07/17 04:00 97.5 62 15 115/65 (82) 100 03/07/17 00:00 97.5 60 15 101/55 (70) 97 03/06/17 22:47 14 03/06/17 20:00 97.8 61 19 121/50 (73) 99 03/06/17 18:15 97.8 62 20 113/62 (79) 97 Nasal Cannula 2 03/06/17 18:00 59 22 114/58 (76) 97 Nasal Cannula 2 03/06/17 17:45 61 19 116/58 (77) 97 Nasal Cannula 2 03/06/17 17:43 97.4 60 20 118/68 (85) 97 Nasal Cannula 3 I/O 03/06/17 03/06/17 03/06/17 03/07/17 03/07/17 03/07/17 06:59 14:59 22:59 06:59 14:59 22:59 Intake Total 472 ml 100 ml 851 ml 461 ml 50 ml Output Total 1350 ml 1850 ml 925 ml Balance -878 ml 100 ml -999 ml -464 ml 50 ml Intake Oral 360 ml 0 ml IV Total 112 ml 100 ml 551 ml 461 ml 50 ml Other 300 ml Output Urine Total 1350 ml 1800 ml 925 ml Estimated Blood Loss 50 ml # Bowel Movements 0 1 1 Physical Exam GENERAL: In NAD SKIN: Warm and dry. HEAD: Normocephalic. EYES: No scleral icterus. No injection or drainage. NECK: Supple, trachea midline. No JVD or lymphadenopathy. CARDIOVASCULAR: Regular rate and rhythm without murmurs, gallops, or rubs. RESPIRATORY: Breath sounds equal bilaterally. No accessory muscle use. GASTROINTESTINAL: Abdomen soft, non-tender, nondistended. MUSCULOSKELETAL: No cyanosis, or edema. S/p hallux amputation. Laboratory Date/Time Source Procedure Growth Status 02/27/17 14:45 Blood Peripheral Aerobic Blood Culture - Final NO GROWTH IN 5 DAYS Complete 02/27/17 14:45 Blood Peripheral Anaerobic Blood Culture - Final NO GROWTH IN 5 DAYS Complete Assessment and Plan Problem List: (1) CAD (coronary artery disease) ICD Codes: I25.10 - Atherosclerotic heart disease of [place] coronary artery without angina pectoris (2) PVD (peripheral vascular disease) ICD Codes: I73.9 - Peripheral vascular disease, unspecified (3) Stented coronary artery ICD Codes: Z95.5 - Presence of coronary angioplasty implant and graft Status: Acute (4) Hx of CABG ICD Codes: Z95.1 - Presence of aortocoronary bypass graft Status: Acute (5) Ischemic pain of left foot ICD Codes: M79.672 - Pain in left foot; I99.9 - Unspecified disorder of circulatory system Status: Acute (6) Diabetes mellitus ICD Codes: E11.9 - Type 2 diabetes mellitus without complications Status: Chronic (7) Carotid artery occlusion ICD Codes: I65.29 - Occlusion and stenosis of unspecified carotid artery Status: Acute (8) CHF (congestive heart failure) ICD Codes: I50.9 - Heart failure, unspecified Status: Chronic (9) Hyperlipidemia ICD Codes: E78.5 - Hyperlipidemia, unspecified Status: Chronic (10) Anemia ICD Codes: D64.9 - Anemia, unspecified Assessment and Plan Tolerated surgery well. No angina or CHF symptoms. Stays in SR. Continue current program including Brilinta and baby ASA to prevent stent thrombosis. Continue aggressive risk factor modification. Continue monitoring. Will need CEA later. Vy Crowder MD Mar 07, 2017 17:26
[2017-03-07] MEDS: VANCOMYCIN INJ 1,750 MG in SODIUM CHLORID 0.9% 500 ML INJ 500 ML IV SCH (17:30)
[2017-03-07] MEDS: EZETIMIBE 10 MG TAB PO SCH (21:36)
--- NOTE | 2017-03-07 22:33 | HHI.IDPN ---
Subjective Subjective Remarks Delayed entry - pt was seen earlier today sp hallux amputation by Dr. Eid sp Left common femoral endarterectomy, patch angioplasty, left SFA, endovascular earlier balloon angioplasty and runoff x3 by Dr. Fleming. Doing well afebrile, but WBC stilll high Antibiotics vanco zosyn azithro Allergies: Coded Allergies: cyclobenzaprine (Unverified Allergy, Severe, Flushing, 02/27/17) REDNESS lisinopril (Unverified Allergy, Unknown, Swelling, 02/27/17) ANGIOEDEMA Objective . Vital Signs Date Time Temp Pulse Resp B/P (MAP) Pulse Ox O2 Delivery O2 Flow Rate FiO2 03/07/17 20:00 97.6 83 18 126/64 (84) 96 03/07/17 16:00 98.0 72 16 111/65 (80) 96 03/07/17 12:00 98.0 70 17 122/65 (84) 96 03/07/17 10:31 99 21 03/07/17 08:00 97.3 74 20 119/62 (81) 99 03/07/17 04:06 99 03/07/17 04:00 97.5 62 15 115/65 (82) 100 03/07/17 00:00 97.5 60 15 101/55 (70) 97 03/06/17 22:47 14 03/07/17 03/07/17 03/08/17 14:59 22:59 06:59 Intake Total 50 ml Balance 50 ml IV Total 50 ml . Laboratory Tests Test 03/06/17 03:57 White Blood Count 19.3 TH/MM3 Red Blood Count 3.92 MIL/MM3 Hemoglobin 10.6 GM/DL Hematocrit 32.2 % Mean Corpuscular Volume 82.1 FL Mean Corpuscular Hemoglobin 26.9 PG Mean Corpuscular Hemoglobin Concent 32.8 % Red Cell Distribution Width 17.7 % Platelet Count 453 TH/MM3 Mean Platelet Volume 7.0 FL Neutrophils (%) (Auto) 89.6 % Lymphocytes (%) (Auto) 5.3 % Monocytes (%) (Auto) 4.1 % Eosinophils (%) (Auto) 0.5 % Basophils (%) (Auto) 0.5 % Neutrophils # (Auto) 17.3 TH/MM3 Lymphocytes # (Auto) 1.0 TH/MM3 Monocytes # (Auto) 0.8 TH/MM3 Eosinophils # (Auto) 0.1 TH/MM3 Basophils # (Auto) 0.1 TH/MM3 CBC Comment DIFF FINAL Differential Comment Laboratory Tests Test 03/06/17 03:57 Blood Urea Nitrogen 22 MG/DL Creatinine 0.98 MG/DL Random Glucose 153 MG/DL Total Protein 7.0 GM/DL Albumin 2.1 GM/DL Calcium Level 8.6 MG/DL Phosphorus Level 3.1 MG/DL Magnesium Level 1.9 MG/DL Alkaline Phosphatase 66 U/L Aspartate Amino Transf (AST/SGOT) 26 U/L Alanine Aminotransferase (ALT/SGPT) 36 U/L Total Bilirubin 0.6 MG/DL Sodium Level 138 MEQ/L Potassium Level 4.0 MEQ/L Chloride Level 106 MEQ/L Carbon Dioxide Level 22.2 MEQ/L Anion Gap 10 MEQ/L Estimat Glomerular Filtration Rate 78 ML/MIN Hemoglobin A1c 6.9 % Free Thyroxine 1.23 NG/DL Thyroid Stimulating Hormone 3rd Gen 2.880 uIU/ML Imaging Last Impressions Foot X-Ray 03/06/17 0000 Signed Impressions: Service Date/Time: Monday, March 06, 2017 17:50 - CONCLUSION: Status post big toe amputation. Leandro Catalan MD Chest X-Ray 03/05/17 0000 Signed Impressions: Service Date/Time: Sunday, March 05, 2017 03:06 - CONCLUSION: Bilateral interstitial and airspace opacity slightly increased from the prior study. The appearance and distribution favors pulmonary edema. Justus Martinez MD Aorta w/Runoff CTA 02/27/17 0000 Signed Impressions: Service Date/Time: Monday, February 27, 2017 17:08 - CONCLUSION: 1. Severe atherosclerotic disease of the abdominal aorta and its major branches and within both lower extremities. There is a moderate to severe stenosis of the midportion of the superficial femoral artery bilaterally but no vessel occlusion is identified. 2. Moderate size left pleural effusion. Justus Martinez MD Physical Exam CONSTITUTIONAL/GENERAL: This is an obese elderly male patient, in no apparent distress. TUBES/LINES/DRAINS: SKIN: No jaundice, rashes, or lesions. Skin temperature appropriate. Not diaphoretic. CARDIOVASCULAR: Regular rate and rhythm without murmurs, gallops, or rubs. No JVD. Peripheral pulses symmetric. RESPIRATORY/CHEST: Symmetric, unlabored respirations. Clear to auscultation. Breath sounds equal bilaterally. No wheezes, rales, or rhonchi. GASTROINTESTINAL: Abdomen soft, non-tender, nondistended. No hepato-splenomegaly , or palpable masses. No guarding. Bowel sounds present. MUSCULOSKELETAL: Extremities without clubbing, No joint tenderness or effusion noted. No calf tenderness. No mottling or clubbing. L foot dressing in pllace no ascending lymphangitis, cellulitis NEUROLOGICAL: Awake and alert. Motor and sensory grossly within normal limits. Follows commands. Clear speech. Moves all extremities. PSYCHIATRIC: calm and cooperative Assessment & Plan Remarks PVD, severe disease L hallux DFI, L hallux wet gangrene with ascending cellulitis - sp hallux amputaion - no cultures availble to ildefonso abx, treatment has to be empirical\ -awaiting path Multiple med problems including DM sepsis : improving Suspected LLL PNA - cont vancomycin - cont zosyn awaiting R hallux path - monitor WBC Aby Lucia MD Mar 07, 2017 22:33
[2017-03-07] MEDS: INSULIN DETEMIR 100 UNITS/ML VIAL SQ SCH (23:35)
[2017-03-08] VITALS (9 sets, daily range): BP systolic 101–154; BP diastolic 59–85; PULSE 65–78; RESP 16–20; TEMP 97.5–98.7; O2SAT 95–97
[2017-03-08] MEDS: PIPERACIL-TAZO 3.375 GM PREMIX 50 ML IV SCH ×5 (00:23→22:55)
[2017-03-08] MEDS: INSULIN ASPART SUPPLEMENTAL SCALE SQ SCH ×4 (05:55→22:57)
[2017-03-08] MEDS: LEVOTHYROXINE SODIUM 25 MCG TAB PO SCH (06:03)
[2017-03-08] MEDS: ACETAMINOPHEN 325 MG TAB PO PRN ×3 (06:04→22:54)
[2017-03-08] MEDS: HEPARIN SODIUM - SQ 10,000 UNITS/ML VIAL SQ SCH ×3 (06:06→22:54)
[2017-03-08] MEDS: REMOVE OLD PATCH T-DERMAL SCH (09:00)
[2017-03-08] MEDS: LOSARTAN 25 MG TAB PO SCH (09:20)
[2017-03-08] MEDS: NICOTINE 21 MG/24 HR PATCH T-DERMAL SCH (09:21)
[2017-03-08] MEDS: GABAPENTIN 100 MG CAP PO SCH ×4 (09:22→22:54)
[2017-03-08] MEDS: VENLAFAXINE HCL XR 75 MG CAP PO SCH (09:22)
[2017-03-08] MEDS: SPIRONOLACTONE 25 MG TAB PO SCH ×2 (09:22→16:54)
[2017-03-08] MEDS: FERROUS SULFATE 325 MG (65 MG ELEMENTAL IRON) TAB PO SCH ×2 (09:22→22:54)
[2017-03-08] MEDS: AZITHROMYCIN 250 MG TAB PO SCH (09:22)
[2017-03-08] MEDS: ATORVASTATIN 80 MG TAB PO SCH (09:22)
[2017-03-08] MEDS: FUROSEMIDE 40 MG TAB PO SCH (09:23)
[2017-03-08] MEDS: TICAGRELOR 90 MG TAB PO SCH ×2 (09:23→22:58)
[2017-03-08] MEDS: ASPIRIN 81 MG CHEW TAB PO SCH (09:23)
[2017-03-08] MEDS: CARVEDILOL 6.25 MG TAB PO SCH ×2 (09:23→22:54)
[2017-03-08] MEDS: QUEtiapine FUMARATE 100 MG TAB PO SCH ×2 (09:23→22:54)
[2017-03-08] MEDS: SODIUM CHLORIDE 0.9% FLUSH 10 ML FLUSH IV FLUSH SCH ×2 (09:24→22:58)
--- NOTE | 2017-03-08 10:21 | HHI.PR ---
Subjective Remarks This is a pleasant 61 y/o male with Left foot cellulitis, CAD status post previous CABG, with recent NSTEMI 01/05/17 status post PCI and stent placement, Atrial fibrillation status post Ablation History of V tach, Hypertension, Severe left ventricular systolic dysfunction, Ischemic cardiomyopathy, COPD, Hypothyroidism, DM II, who was just recently discharged 02/06/17. came with discoloration of the left great toe, MRI of the foot was obtained at that time which showed soft tissue ulceration and no evidence of osteomyelitis. Chest x- ray shows some worsening of the left lower lobe infiltrate. Dr. Esparza was contacted while patient still in the ED and requested at CTA with runoff be ordered and he will see him in consultation. Patient was given vancomycin and Zosyn. followed by pediatric sports medicine specialist, the patient has PAD, recommended to continue Brilinta and Baby Aspirin to prevent stent thrombosis. Vascular event set up specialist following, the patient has Severe Stenosis of the distal iliac arteries and bilateral common femoral arteries, severe stenosis of the SFA Bilateral, Status post revascularization of the left leg with the common femoral endarterectomy patch and superficial femoral artery balloon angioplasty has severe distal trifurcation disease and the severe SFA vascular occlusive disease. 03/03/17, recommended Podiatry for Hallux amputation Scheduled for later today by Doctor Eid. he will need Carotid Endarterectomy, he has Total left sided occlusion and right sided hemodynamically significant stenosis. ID specialist following, with Diagnosis of Worsening sepsis, Leukocytosis over 20, worsening renal function, suspected LLL PNA, to continue Vancomycin Zosyn and Azithromycin for five days. 03/06: Seen in his bedroom in the presence of his Mrs. Vicki Ovalle, he will have amputation of the Left Hallux later today. 03/07: On Vancomycin and Zosyn, status post Left Hallux and first Metatarsal Head amputation POD#1, Azithromycin for 5 days. stable seen in his room his does not want any type of narcotic for her wants me to remove all narcotics from his chart, he has no complaint, will be transferred today out of the unit. 03/08: as per pediatric sports medicine specialist stays in Sinus rhythm, to continue Brilinta and Aspirin to prevent thrombosis, on Empirical antibiotics as per ID specialist awaiting pathology, suspected LLL Pneumonia, to continue Vancomycin, Zosyn. seen in his bedroom in the presence of nurse Mr. Xavier he wants to go home will need clearance by Specialists, no nausea, vomit or diarrhea. Objective Vital Signs Date Time Temp Pulse Resp B/P (MAP) Pulse Ox O2 Delivery O2 Flow Rate FiO2 03/08/17 08:21 73 03/08/17 08:00 98.4 78 16 122/73 (89) 96 03/08/17 04:00 98.7 78 20 119/72 (88) 95 03/08/17 02:53 96 03/08/17 00:00 98.2 74 20 101/65 (77) 97 03/07/17 20:00 74 03/07/17 20:00 97.6 83 18 126/64 (84) 96 03/07/17 16:00 98.0 72 16 111/65 (80) 96 03/07/17 12:00 98.0 70 17 122/65 (84) 96 03/07/17 10:31 99 21 I/O 03/07/17 03/07/17 03/07/17 03/08/17 03/08/17 03/08/17 07:00 15:00 23:00 07:00 15:00 23:00 Intake Total 461 ml 50 ml Output Total 925 ml Balance -464 ml 50 ml IV Total 461 ml 50 ml Output Urine Total 925 ml # Bowel Movements 1 Result Diagram: 03/06/17 0357 03/08/17 0813 Imaging Last Impressions Foot X-Ray 03/06/17 0000 Signed Impressions: Service Date/Time: Monday, March 06, 2017 17:50 - CONCLUSION: Status post big toe amputation. Leandro Catalan MD Chest X-Ray 03/05/17 0000 Signed Impressions: Service Date/Time: Sunday, March 05, 2017 03:06 - CONCLUSION: Bilateral interstitial and airspace opacity slightly increased from the prior study. The appearance and distribution favors pulmonary edema. Justus Martinez MD Aorta w/Runoff CTA 02/27/17 0000 Signed Impressions: Service Date/Time: Monday, February 27, 2017 17:08 - CONCLUSION: 1. Severe atherosclerotic disease of the abdominal aorta and its major branches and within both lower extremities. There is a moderate to severe stenosis of the midportion of the superficial femoral artery bilaterally but no vessel occlusion is identified. 2. Moderate size left pleural effusion. Justus Martinez MD Procedures s/p revascularization of the left leg with the common femoral endarterectomy patch and superficial femoral artery balloon angioplasty Other Results Laboratory Tests Test 02/27/17 14:45 02/27/17 16:45 02/28/17 19:00 03/01/17 06:32 Lactic Acid Level 1.7 mmol/L Urine Color YELLOW Urine Turbidity CLEAR Urine pH 5.5 Urine Specific [place] 1.011 Urine Protein TRACE mg/dL Urine Glucose (UA) NEG mg/dL Urine Ketones NEG mg/dL Urine Occult Blood NEG Urine Nitrite NEG Urine Bilirubin NEG Urine Urobilinogen LESS THAN 2.0 MG/DL Urine Leukocyte Esterase NEG Microscopic Urinalysis Comment CATH-CULT NOT IND Iron Level 11 MCG/DL Total Iron Binding Capacity 294 MCG/DL Percent Iron Saturation 3.7 % Ferritin 145 NG/ML Triglycerides Level 80 MG/DL Cholesterol Level 86 MG/DL LDL Cholesterol 50 MG/DL HDL Cholesterol 19.9 MG/DL Cholesterol/HDL Ratio 4.32 RATIO Random Vancomycin Level 6.1 COMMENT Test 03/03/17 21:50 03/05/17 02:00 03/05/17 16:39 03/06/17 03:57 Blood Gas Puncture Site RT RADIAL Blood Gas Patient Temperature 98.6 Blood Gas HCO3 18 mmol/L Blood Gas Base Excess -5.0 mmol/L Blood Gas Oxygen Saturation 98 % Arterial Blood pH 7.48 Arterial Blood Partial Pressure CO2 25 mmHg Arterial Blood Partial Pressure O2 109 mmHg Arterial Blood Oxygen Content 13.4 Vol % Arterial Blood Carboxyhemoglobin 1.3 % Arterial Blood Methemoglobin 0.0 % Blood Gas Hemoglobin 9.7 G/DL Oxygen Delivery Device NASAL CANNULA Blood Gas Liter Flow 3 L/M Troponin I 0.12 NG/ML B-Type Natriuretic Peptide 1091 PG/ML Prothrombin Time 14.4 SEC Prothromb Time International Ratio 1.3 RATIO Activated Partial Thromboplast Time 32.2 SEC Vancomycin Level Trough 17.4 MCG/ML White Blood Count 19.3 TH/MM3 Red Blood Count 3.92 MIL/MM3 Hemoglobin 10.6 GM/DL Hematocrit 32.2 % Mean Corpuscular Volume 82.1 FL Mean Corpuscular Hemoglobin 26.9 PG Mean Corpuscular Hemoglobin Concent 32.8 % Red Cell Distribution Width 17.7 % Platelet Count 453 TH/MM3 Mean Platelet Volume 7.0 FL Neutrophils (%) (Auto) 89.6 % Lymphocytes (%) (Auto) 5.3 % Monocytes (%) (Auto) 4.1 % Eosinophils (%) (Auto) 0.5 % Basophils (%) (Auto) 0.5 % Neutrophils # (Auto) 17.3 TH/MM3 Lymphocytes # (Auto) 1.0 TH/MM3 Monocytes # (Auto) 0.8 TH/MM3 Eosinophils # (Auto) 0.1 TH/MM3 Basophils # (Auto) 0.1 TH/MM3 CBC Comment DIFF FINAL Differential Comment Blood Urea Nitrogen 22 MG/DL Creatinine 0.98 MG/DL Random Glucose 153 MG/DL Total Protein 7.0 GM/DL Albumin 2.1 GM/DL Calcium Level 8.6 MG/DL Phosphorus Level 3.1 MG/DL Magnesium Level 1.9 MG/DL Alkaline Phosphatase 66 U/L Aspartate Amino Transf (AST/SGOT) 26 U/L Alanine Aminotransferase (ALT/SGPT) 36 U/L Total Bilirubin 0.6 MG/DL Sodium Level 138 MEQ/L Potassium Level 4.0 MEQ/L Chloride Level 106 MEQ/L Carbon Dioxide Level 22.2 MEQ/L Anion Gap 10 MEQ/L Hemoglobin A1c 6.9 % Free Thyroxine 1.23 NG/DL Thyroid Stimulating Hormone 3rd Gen 2.880 uIU/ML Test 03/08/17 08:13 Creatinine 0.92 MG/DL Estimat Glomerular Filtration Rate 84 ML/MIN Objective Remarks GENERAL: Obesity, no acute distress. SKIN: Warm and dry. Left lower extremity is swollen and erythematous tenderness in foot also has the wound wound HEAD: Atraumatic. Normocephalic. NECK: Trachea midline. No JVD. Neck is supple CARDIOVASCULAR: Regular rate and rhythm. S1-S2 no S3 or S4 no heave or thrill or rub or gallop RESPIRATORY: No accessory muscle use. Clear to auscultation. Breath sounds equal bilaterally. GASTROINTESTINAL: Abdomen soft, non-tender, nondistended. Hepatic and splenic margins not palpable. Obese MUSCULOSKELETAL:. Left Foot dressed. NEUROLOGICAL: Awake and alert. No obvious cranial nerve deficits. PSYCHIATRIC: Appropriate mood and affect. Medications and IVs Current Medications Medications (Trade) Dose Ordered Sig/Hugo Route Start Time Stop Time Status Last Admin (D50w (Vial) Inj) 50 ml UNSCH PRN IV 02/27/17 16:45 (Glucagon Inj) 1 mg UNSCH PRN OTHER 8/22/17 16:45 (NovoLOG SUPPLEMENTAL SCALE) 1 ACHS SLIDING SCALE SQ 02/27/17 21:00 03/07/17 23:35 Piperacillin Sod/ Tazobactam Sod 50 ml @ 100 mls/hr Q6H IV 02/27/17 21:00 03/08/17 09:55 Pharmacy Profile Note 0 ml @ 0 mls/hr UNSCH OTHER 02/27/17 16:45 (Aspirin Chew) 81 mg DAILY PO 02/28/17 09:00 03/08/17 09:23 (Coreg) 6.25 mg BID PO 02/27/17 21:00 03/08/17 09:23 (Zetia) 10 mg HS PO 02/27/17 21:00 03/07/17 21:36 (Ferrous Sulfate) 325 mg BID PO 02/27/17 21:00 03/08/17 09:22 (Neurontin) 100 mg QID PO 02/27/17 18:00 03/08/17 09:22 (Synthroid) 25 mcg DAILY@0600 PO 02/28/17 06:00 03/08/17 06:03 (Aldactone) 25 mg BIDPC PO 02/27/17 18:00 Future hold 03/08/17 09:22 (Brilinta) 90 mg BID PO 02/27/17 21:00 03/08/17 09:23 (Lipitor) 80 mg DAILY PO 03/01/17 09:00 03/08/17 09:22 Vancomycin HCl 1750 mg/Sodium Chloride 517.5 ml @ 257.5 mls/ hr Q24H IV 03/01/17 16:00 03/07/17 17:30 (Zithromax) 250 mg DAILY PO 03/02/17 09:00 03/08/17 09:22 (Lasix) 40 mg DAILY PO 03/03/17 09:00 03/08/17 09:23 (Albuterol Neb) 2.5 mg Q4HR NEB PRN INH 03/02/17 21:00 03/03/17 21:12 (Heparin Inj) 5,000 units Q8HR SQ 03/03/17 06:00 03/08/17 06:06 (Levemir Inj) 10 units HS SQ 03/03/17 21:00 03/07/17 23:35 (Haldol Inj) 4 mg Q6H PRN IM 03/03/17 14:30 03/03/17 20:43 (SEROquel) 100 mg BID PO 03/03/17 21:00 03/08/17 09:23 (Habitrol 21 Mg Patch.24 Hr) 1 patch DAILY T-DERMAL 03/04/17 00:00 03/08/17 09:21 Miscellaneous Information 1 DAILY T-DERMAL 03/04/17 09:00 03/08/17 09:00 (KlonoPIN) 0.5 mg BID PRN PO 03/04/17 09:00 Dexmedetomidine HCl 1000 mcg/ Sodium Chloride 250 ml @ 5.53 mls/hr TITRATE PRN IV 03/04/17 20:00 03/06/17 22:04 (Effexor Xr) 75 mg DAILY PO 03/04/17 22:15 03/08/17 09:22 (Cozaar) 25 mg DAILY PO 03/06/17 12:00 03/08/17 09:20 (Tylenol) 650 mg Q4H PRN PO 03/05/17 14:00 03/08/17 06:04 (NS Flush) 2 ml UNSCH PRN IV FLUSH 03/06/17 17:30 (NS Flush) 2 ml BID IV FLUSH 03/06/17 21:00 03/08/17 09:24 (Narcan Inj) 0.4 mg UNSCH PRN IV 03/06/17 17:30 A/P Assessment and Plan ischemic left foot with gangrene of the left great toe s/p status post revascularization of the left leg with the common femoral endarterectomy patch and superficial femoral artery balloon angioplasty Status post left great toe amputation by Podiatry. Dr. Eid, stable redressed today by specialist and okay to discharge and follow in his office. sepsis due to Cellulitis/Diabetic foot ulcer Continue Vancomycin, Zosyn and Azithromycin. blood cultures negative in five days. ID and podiatry following. not yet cleared by ID specialist. CAD with ischemic cardiomyopathy previous CABG recent NSTEMI status post cardiac catheterization stent implantation 12/23 History of V. tach History of atrial fibrillation status post ablation Hypertension Severe left ventricular systolic dysfunction continue aspirin 81mg and Brilinta 90mg BID, Lipitor 80mg Continue Coreg and Losartan continue Lasix and Aldactone cardiology following. acute kidney injury Improved. Type 2 DM Diabetic neuropathy Better control. Hold patient's metformin, glipizide and pioglitazone Accu-Cheks and insulin sliding scale Continue Levemir 10 units daily at bedtime Continue patient's home dose of gabapentin 100 mg by mouth 4 times a day Diabetic diet Anemia s/p PRBC transfusion- H/H now improved- will monitor Continue patient on home dose of ferrous sulfate 325 mg by mouth twice a day Hypothyroidism Continue patient on home dose of levothyroxine 25 g daily Psychosis The patient is been as outpatient on Effexor and in house is on Seroquel, he is doing better now, but his asked about the need to come back on Effexor I will monitor his behavior and continue Seroquel is been well tolerated by the patient. Full code. DVT prophylaxis; subq Heparin Discussed with Patient His . all questions answered to the best of my abilities. Discharge Planning Once Cleared by specialists. Marques Dick MD Mar 08, 2017 10:21
--- NOTE | 2017-03-08 12:53 | PD.POD ---
Subjective Podiatric Problems History of gangrene left hallux Pain scale used: 0-10 numeric scale Pain score: 1 Remarks Patient is a 61-year-old diabetic male with peripheral vascular disease who is 2 days status post amputation of the left hallux. Patient was without complaints of pain or discomfort. Discussed with Dr. Lucia. I feel like to the bone back are not to alleviate any possible infection however, I will obtain a swab culture of the open part of the wound today Past Med/Surg/Social History Past Medical History Endocrine: REPORTS HX OF: Diabetes mellitus Respiratory: REPORTS HX OF: Other respiratory history Cardiovascular: REPORTS HX OF: Atrial fibrillation, Heart failure, Hypertension , Peripheral vascular dz Genitourinary: REPORTS HX OF: Kidney disease Genetic/metabolic: DENIES HX OF: Cystic fibrosis Past Surgical History Cardiovascular: REPORTS HX OF: Angioplasty, CABG surgery, Carotid endarterectomy, Coronary stent, Pacemaker Social History Smoking Status: Former Smoker Review of Systems Notes No changes in his 14 point review of systems exam since he was seen yesterday Objective Vital Signs Vital Signs Date Time Temp Pulse Resp B/P (MAP) Pulse Ox O2 Delivery O2 Flow Rate FiO2 03/08/17 12:00 98.5 65 16 106/59 (75) 97 03/08/17 10:00 18 03/08/17 08:21 73 03/08/17 08:00 98.4 78 16 122/73 (89) 96 03/08/17 04:00 98.7 78 20 119/72 (88) 95 03/08/17 02:53 96 03/08/17 00:00 98.2 74 20 101/65 (77) 97 03/07/17 20:00 74 03/07/17 20:00 97.6 83 18 126/64 (84) 96 03/07/17 16:00 98.0 72 16 111/65 (80) 96 Coded Allergies: cyclobenzaprine (Unverified Allergy, Severe, Flushing, 02/27/17) REDNESS lisinopril (Unverified Allergy, Unknown, Swelling, 02/27/17) ANGIOEDEMA Medications and IVs Current Medications Vancomycin HCl 1000 mg/Sodium Chloride 250 ml @ 250 mls/hr ONCE ONCE IV Last administered on 02/27/17t 16:42; Start 02/27/17 at 14:15; Stop 02/27/17 at 15:14 ; Status DC Piperacillin Sod/ Tazobactam Sod 50 ml @ 100 mls/hr ONCE ONCE IV Last administered on 02/27/17 14:56; Start 02/27/17 at 14:15; Stop 02/27/17 at 14:44 ; Status DC Morphine Sulfate (Morphine Inj) 4 mg ONCE ONCE IV PUSH Last administered on 14:56; Start 02/27/17 at 14:15; Stop 02/27/17 at 14:16; Status DC Ondansetron HCl (Zofran Inj) 4 mg ONCE ONCE IV PUSH Last administered on 14:53; Start 02/27/17 at 14:15; Stop 02/27/17 at 14:16; Status DC Dextrose (D50w (Vial) Inj) 50 ml UNSCH PRN IV HYPOGLYCEMIA-SEE COMMENTS; Start 02/27/17 at 16:45 Glucagon (Glucagon Inj) 1 mg UNSCH PRN OTHER HYPOGLYCEMIA-SEE COMMENTS; Start 02/27/17 at 16:45 Insulin Aspart (NovoLOG SUPPLEMENTAL SCALE) 1 ACHS SLIDING SCALE SQ Last administered on 03/08/17 11:00; Start 02/27/17 at 21:00 Piperacillin Sod/ Tazobactam Sod 50 ml @ 100 mls/hr Q6H IV Last administered on 03/08/17 09:55; Start 02/27/17 at 21:00 Pharmacy Profile Note 0 ml @ 0 mls/hr UNSCH OTHER ; Start 02/27/17 at 16:45 Aspirin (Aspirin Chew) 81 mg DAILY PO Last administered on 03/08/17 09:23; Start 02/28/17 at 09:00 Carvedilol (Coreg) 6.25 mg BID PO Last administered on 03/08/17 09:23; Start 02/27/17 at 21:00 Clonazepam (KlonoPIN) 0.5 mg BID PO Last administered on 03/03/17 19:59; Start 02/27/17 at 21:00; Stop 03/04/17 at 08:49; Status DC EZETIMIBE (Zetia) 10 mg HS PO Last administered on 03/07/17 21:36; Start 02/27 at 21:00 Ferrous Sulfate (Ferrous Sulfate) 325 mg BID PO Last administered on 03/08/17 09:22; Start 02/27/17 at 21:00 Furosemide (Lasix) 80 mg BID PO Last administered on 03/01/17 20:05; Start at 21:00; Stop 03/01/17 at 20:26; Status DC Gabapentin (Neurontin) 100 mg QID PO Last administered on 03/08/17 09:22; Start 02/27/17 at 18:00 Levothyroxine Sodium (Synthroid) 25 mcg DAILY@0600 PO Last administered on 03/08 06:03; Start 02/28/17 at 06:00 Losartan Potassium (Cozaar) 25 mg DAILY PO Last administered on 03/04/17 08:47 ; Start 02/28/17 at 09:00; Stop 03/05/17 at 11:06; Status DC Spironolactone (Aldactone) 25 mg BIDPC PO Last administered on 03/08/17 09:22 ; Start 02/27/17 at 18:00; Status Future hold Ticagrelor (Brilinta) 90 mg BID PO Last administered on 03/08/17 09:23; Start 02/27/17 at 21:00 Non-Formulary Medication 40 mg HS PO ; Start 02/27/17 at 21:00; Status UNV Acetaminophen/ Hydrocodone Bitart (Corona 5-325 Mg) 1 tab Q4H PRN PO PAIN SCALE 3 TO 5 Last administered on 03/06/17 21:47; Start 02/27/17 at 19:00; Stop 03/07/17 at 12:48; Status DC Hydromorphone HCl (Dilaudid Pf Inj) 0.5 mg Q4H PRN IV PUSH PAIN 6-10 Last administered on 02/28/17 00:15; Start 02/27/17 at 19:00; Stop 02/28/17 at 09:51 ; Status DC Pravastatin Sodium (Pravachol) 80 mg HS PO Last administered on 02/27/17 23:53 ; Start 02/27/17 at 21:00; Stop 02/28/17 at 16:41; Status DC Vancomycin HCl 1000 mg/Sodium Chloride 250 ml @ 250 mls/hr ONCE ONCE IV Last administered on 02/28/17 00:12; Start 02/27/17 at 21:00; Stop 02/27/17 at 21:59 ; Status DC Vancomycin HCl 1750 mg/Sodium Chloride 517.5 ml @ 257.5 mls/ hr Q24H IV ; Start 02/28/17 at 21:00; Stop 03/01/17 at 13:37; Status DC Miscellaneous Information SPECIFIC LAB TO BE .. ONCE ONCE .XX ; Start 03/02 at 20:45; Stop 03/02/17 at 20:46; Status Cancel Hydromorphone HCl (Dilaudid Pf Inj) 1 mg Q4H PRN IV PUSH BREAKTHROUGH PAIN; Start 02/28/17 at 11:00; Stop 03/06/17 at 19:43; Status DC Acetaminophen/ Hydrocodone Bitart (Corona 5-325 Mg) 2 tab Q4H PRN PO PAIN 6-10 Last administered on 03/07/17 11:07; Start 02/28/17 at 11:00; Stop 03/07/17 at 12:48; Status DC Atorvastatin Calcium (Lipitor) 80 mg DAILY PO Last administered on 03/08/17 09 :22; Start 03/01/17 at 09:00 Sodium Chloride 250 ml @ 15 mls/hr ONCE ONCE IV Last administered on 21:30; Start 02/28/17 at 17:30; Stop 03/01/17 at 10:09; Status DC Furosemide (Lasix Inj) 20 mg ONCE ONCE IV Last administered on 03/01/17 01:36 ; Start 02/28/17 at 17:30; Stop 02/28/17 at 17:32; Status DC Cefazolin Sodium/ Dextrose 50 ml @ 100 mls/hr SHAKE TABLE OPERATOR IV ; Start 03/01/17 at 10:00; Stop 03/04/17 at 09:59; Status DC Sodium Chloride 250 ml @ 15 mls/hr ONCE ONCE IV Last administered on 13:20; Start 03/01/17 at 12:30; Stop 03/02/17 at 05:09; Status DC Furosemide (Lasix Inj) 20 mg UNSCH X1 PRN IV AFTER 1ST UNIT OF BLOOD Last administered on 03/01/17 17:13; Start 03/01/17 at 12:30; Stop 03/01/17 at 23:59 ; Status DC Vancomycin HCl 1750 mg/Sodium Chloride 517.5 ml @ 257.5 mls/ hr Q24H IV Last administered on 03/07/17 17:30; Start 03/01/17 at 16:00 Miscellaneous Information SPECIFIC LAB TO BE DRAWN:VANCOMYCIN TROUGH DATE TO... ONCE ONCE .XX ; Start 03/03/17 at 15:45; Stop 03/03/17 at 15:46; Status DC Azithromycin (Zithromax) 500 mg ONCE ONCE PO Last administered on 03/01/17 20 :07; Start 03/01/17 at 20:00; Stop 03/01/17 at 20:02; Status DC Azithromycin (Zithromax) 250 mg DAILY PO Last administered on 03/08/17 09:22; Start 03/02/17 at 09:00 Furosemide (Lasix Inj) 20 mg UNSCH X1 PRN IV PUSH AFTER 2ND UNIT OF PRBC Last administered on 03/02/17 01:09; Start 03/01/17 at 20:30; Stop 03/02/17 at 16:00 ; Status DC Furosemide (Lasix) 40 mg ONCE ONCE PO Last administered on 03/01/17 21:00; Start 03/01/17 at 21:00; Stop 03/01/17 at 21:01; Status DC Furosemide (Lasix) 80 mg BID PO ; Start 03/02/17 at 09:00; Stop 03/02/17 at 09: 00; Status DC Lactated Ringer's 1,000 ml @ 30 mls/hr Q24H PRN IV SEE LABEL COMMENTS; Start at 00:30; Stop 03/05/17 at 00:29; Status DC Povidone Iodine (Betadine 5% Antisepsis Kit) 1 applic SHAKE TABLE OPERATOR PRN EACH NARE SEE LABEL COMMENTS; Start 03/02/17 at 00:30; Stop 03/05/17 at 00:29; Status DC Chlorhexidine Gluconate (Chlorhexidine 2% Cloth) 3 pack SHAKE TABLE OPERATOR PRN TOPICAL SEE LABEL COMMENTS; Start 03/02/17 at 00:30; Stop 03/05/17 at 00:29; Status DC Furosemide (Lasix) 40 mg DAILY PO Last administered on 03/08/17 09:23; Start 03/03/17 at 09:00 Heparin Sodium (Porcine) (Heparin Inj) 10,000 units STK-MED ONCE .ROUTE Last administered on 03/02/17 12:27; Start 03/02/17 at 09:53; Stop 03/02/17 at 09:54 ; Status DC Acetaminophen 100 ml @ As Directed STK-MED ONCE IV ; Start 03/02/17 at 09:56; Stop 03/02/17 at 09:57; Status DC Midazolam HCl (Versed Inj) 2 mg STK-MED ONCE .ROUTE ; Start 03/02/17 at 09:57; Stop 03/02/17 at 09:58; Status DC Famotidine (Pepcid Inj) 20 mg STK-MED ONCE .ROUTE ; Start 03/02/17 at 09:57; Stop 03/02/17 at 09:58; Status DC Sugammadex Sodium (Bridion Inj) 200 mg STK-MED ONCE IV PUSH ; Start 03/02/17 at 09:57; Stop 03/02/17 at 09:58; Status DC Fentanyl Citrate (fentaNYL INJ) 250 mcg STK-MED ONCE .ROUTE ; Start 03/02/17 at 10:00; Stop 03/02/17 at 10:01; Status DC Bupivacaine HCl/ Epinephrine Bitart (Sensorcaine-Epinephrine Pf 0.5% Inj) 30 ml STK-MED ONCE .ROUTE ; Start 03/02/17 at 11:51; Stop 03/02/17 at 11:52; Status DC Heparin Sodium (Porcine) (Heparin Inj) 10,000 units STK-MED ONCE .ROUTE Last administered on 03/02/17 12:03; Start 03/02/17 at 12:48; Stop 03/02/17 at 12:49 ; Status DC Iohexol 35 ml @ 0 mls/hr ONCE ONCE IV ; Start 03/02/17 at 15:21; Stop 03/02/17 at 15:45; Status DC Morphine Sulfate (*morphine INJ PERIprocedure ONLY) 8 mg STK-MED ONCE .ROUTE Last administered on 03/02/17 15:46; Start 03/02/17 at 15:46; Stop 03/02/17 at 15:47; Status DC Albuterol Sulfate (*ALBUTEROL NEB PERIprocedure ONLY) 2.5 mg STK-MED ONCE NEB Last administered on 8/25/17at 15:47; Start 03/02/17 at 15:47; Stop 03/02/17 at 15:48; Status DC Phenylephrine HCl (Neosynephrine Inj) 40 mg STK-MED ONCE .ROUTE ; Start at 15:52; Stop 03/02/17 at 15:53; Status DC Bacitracin (Baciguent Oint) 15 applic STK-MED ONCE .ROUTE ; Start 03/02/17 at 16 :01; Stop 03/02/17 at 16:02; Status DC Morphine Sulfate (*morphine INJ PERIprocedure ONLY) 8 mg STK-MED ONCE .ROUTE Last administered on 03/02/17 16:26; Start 03/02/17 at 16:26; Stop 03/02/17 at 16:27; Status DC Haloperidol Lactate (Haldol Inj) 5 mg STK-MED ONCE .ROUTE Last administered on 03/02/17 16:40; Start 03/02/17 at 16:40; Stop 03/02/17 at 16:41; Status DC Haloperidol Lactate (Haldol Inj) 2.5 mg NOW ONCE IV PUSH ; Start 03/02/17 at 17 :00; Stop 03/02/17 at 17:01; Status DC Albuterol Sulfate (Albuterol Neb) 2.5 mg Q4HR NEB PRN INH SOB/WHEEZING Last administered on 03/03/17 21:12; Start 03/02/17 at 21:00 Heparin Sodium (Porcine) (Heparin Inj) 5,000 units Q8HR SQ Last administered on 03/08/17 06:06; Start 03/03/17 at 06:00 Insulin Detemir (Levemir Inj) 10 units HS SQ Last administered on 03/07/17 23: 35; Start 03/03/17 at 21:00 Haloperidol Lactate (Haldol Inj) 4 mg Q6H PRN IM AGITATION Last administered on 03/03/17 20:43; Start 03/03/17 at 14:30 Quetiapine Fumarate (SEROquel) 100 mg BID PO Last administered on 03/08/17 09: 23; Start 03/03/17 at 21:00 Dexmedetomidine HCl (Precedex Inj) 200 mcg STK-MED ONCE .ROUTE Last administered on 03/03/17 22:39; Start 03/03/17 at 22:39; Stop 03/03/17 at 22:40 ; Status DC Dexmedetomidine HCl (Precedex Inj) 200 mcg STK-MED ONCE .ROUTE Last administered on 03/03/17 23:17; Start 03/03/17 at 23:17; Stop 03/03/17 at 23:18 ; Status DC Dexmedetomidine HCl 200 mcg/ Sodium Chloride 50 ml @ 5.53 mls/hr TITRATE PRN IV Desired RASS Last administered on 03/04/17 00:55; Start 03/03/17 at 23:45; Stop 03/04/17 at 19:51; Status DC Nicotine (Habitrol 21 Mg Patch.24 Hr) 1 patch DAILY T-DERMAL Last administered on 03/08/17 09:21; Start 03/04/17 at 00:00 Miscellaneous Information 1 DAILY T-DERMAL Last administered on 03/08/17 09:00 ; Start 03/04/17 at 09:00 Clonazepam (KlonoPIN) 0.5 mg BID PRN PO Anxiety; Start 03/04/17 at 09:00 Dexmedetomidine HCl 1000 mcg/ Sodium Chloride 250 ml @ 5.53 mls/hr TITRATE PRN IV Desired RASS Last administered on 03/06/17 22:04; Start 03/04/17 at 20: 00 Venlafaxine HCl (Effexor) 75 mg DAILY PO Last administered on 03/04/17 22:02; Start 03/04/17 at 20:45; Stop 03/04/17 at 22:08; Status DC Venlafaxine HCl (Effexor Xr) 75 mg DAILY PO Last administered on 03/08/17 09: 22; Start 03/04/17 at 22:15 Miscellaneous Information SPECIFIC LAB TO BE DRAWN:VA... ONCE ONCE .XX ; Start 03/05/17 at 15:45; Stop 03/05/17 at 15:46; Status DC Potassium Bicarb/ Potassium Chloride (K-Lyte Cl Eff) 25 meq ONCE ONCE PO Last administered on 03/05/17 03:18; Start 03/05/17 at 03:15; Stop 03/05/17 at 03:16; Status DC Potassium Chloride 100 ml @ 50 mls/hr ONCE ONCE IV Last administered on 03:18; Start 03/05/17 at 03:15; Stop 03/05/17 at 05:14; Status DC Losartan Potassium (Cozaar) 25 mg DAILY PO Last administered on 03/08/17 09:20 ; Start 03/06/17 at 12:00 Acetaminophen (Tylenol) 650 mg Q4H PRN PO PAIN SCALE 1 TO 6 Last administered on 03/08/17 11:38; Start 03/05/17 at 14:00 Miscellaneous Information SPECIFIC LAB TO BE DRAWN:VANCO TROUGH DATE TO BE DR... ONCE ONCE .XX ; Start 03/07/17 at 15:45; Stop 03/07/17 at 15:46; Status Cancel Bupivacaine HCl (Marcaine Pf 0.5% Inj) 30 ml STK-MED ONCE .ROUTE Last administered on 03/06/17 16:41; Start 03/06/17 at 16:12; Stop 03/06/17 at 16:13 ; Status DC Lidocaine HCl (Xylocaine 1% Inj (50 ml)) 50 ml STK-MED ONCE .ROUTE Last administered on 03/06/17 16:41; Start 03/06/17 at 16:13; Stop 03/06/17 at 16:14 ; Status DC Sugammadex Sodium (Bridion Inj) 200 mg STK-MED ONCE IV PUSH ; Start 03/06/17 at 17:00; Stop 03/06/17 at 17:01; Status DC Sodium Chloride (NS Flush) 2 ml UNSCH PRN IV FLUSH FLUSH AFTER USING IV ACCESS ; Start 03/06/17 at 17:30 Sodium Chloride (NS Flush) 2 ml BID IV FLUSH Last administered on 03/08/17 09: 24; Start 03/06/17 at 21:00 Miscellaneous Information (Post-op Orders (for Pharmacy)) STAT ONCE XX ; Start 03/06/17 at 17:30; Stop 03/06/17 at 19:44; Status DC Acetaminophen (Tylenol) 650 mg Q6H PRN PO PAIN SCALE 1 TO 2; Start 03/06/17 at 17:30; Stop 03/07/17 at 12:48; Status DC Hydromorphone HCl (Dilaudid Pf Inj) 1 mg Q3H PRN IV BREAKTHROUGH PAIN; Start at 17:30; Stop 03/07/17 at 12:49; Status DC Oxycodone HCl (Roxicodone) 5 mg Q4H PRN PO PAIN SCALE 3 TO 5; Start 03/06/17 at 17:30; Stop 03/07/17 at 12:51; Status DC Hydromorphone HCl (Dilaudid) 2 mg Q4H PRN PO PAIN SCALE 6 TO 10; Start at 17:30; Stop 03/07/17 at 12:49; Status DC Naloxone HCl (Narcan Inj) 0.4 mg UNSCH PRN IV SEE LABEL COMMENTS; Start at 17:30 Fentanyl Citrate (fentaNYL INJ) 200 mcg STK-MED ONCE .ROUTE ; Start 03/06/17 at 17:50; Stop 03/06/17 at 17:51; Status DC Miscellaneous Information ALL NURSING DEPARTME... UNSCH PRN .XX SEE LABEL COMMENTS; Start 03/06/17 at 17:44; Stop 03/07/17 at 17:43; Status DC Other Results Laboratory Tests Test 03/08/17 08:13 Creatinine 0.92 MG/DL Estimat Glomerular Filtration Rate 84 ML/MIN Exam-Podiatry Constitutional General appearance: comfortable Nutritional status: overweight Orientation: alert and oriented x3 Dermatological Exam Skin Temp - Right: Within Normal Limits Skin Texture - Right: Within Normal Limits Skin Elasticity - Right: Within Normal Limits Skin Tugor - Right: Within Normal Limits Hair Growth - Right: Within Normal Limits Pigmentation - Right: Within Normal Limits Skin Temp - Left: Within Normal Limits Skin Texture - Left: Within Normal Limits Skin Elasticity - Left: Within Normal Limits Skin Tugor - Left: Within Normal Limits Hair Growth - Left: Within Normal Limits Pigmentation - Left: Within Normal Limits Other: Scars, Surgery,Injury Wound edges are still coapted on the proximal part of the wound. Distal part of the wound is still slightly open. No signs of purulence. No odor. Surrounding erythema is noted. Vascular/Lymphatic Exam R Dorsails Pedis: Doppler L Dorsails Pedis: Doppler R Posterior Tibial: Doppler L Posterior Tibial: Doppler Neurologic Exam Present on right: Tingling Present on left: Tingling Musculoskeletal Exam Details Amputation of left hallux Muscle Strength Dorsiflexion (Right): Normal Plantarflexion (Right): Normal Inversion (Right): Normal Eversion (Right): Normal Digital (Right): Normal Dorsiflexion (Left): Normal Plantarflexion (Left): Normal Inversion (Left): Normal Eversion (Left): Normal Digital (Left): Normal Foot Range of Motion Dorsiflexion (Right): Normal Plantarflexion (Right): Normal Inversion (Right): Normal Eversion (Right): Normal Digital (Right): Normal Dorsiflexion (Left): Normal Plantarflexion (Left): Normal Inversion (Left): Normal Eversion (Left): Normal Digital (Left): Normal Assessment & Plan Diagnosis: (1) Gangrene of toe of left foot ICD Codes: I96 - Gangrene, not elsewhere classified Status: Resolved A/P PLAN: Dressing change to the surgical site was performed. I obtained a swab culture of the open area. Redressed aseptically. Continue to follow. Once discharged I can follow him in the wound center. Ismael Eid DPM Mar 08, 2017 12:53
--- NOTE | 2017-03-08 13:30 | PD.CARD.PN ---
Subjective Subjective Remarks Active Medications Miscellaneous Information SPECIFIC LAB TO BE DRAWN:VANCO TROUGH DATE TO BE ONCE ONCE .XX; Start 03/07/17 at 15:45; Stop 03/07/17 at 15:46; Status Cancel Objective Medications Active Medications Miscellaneous Information SPECIFIC LAB TO BE DRAWN:VANCO TROUGH DATE TO BE ONCE ONCE .XX; Start 03/07/17 at 15:45; Stop 03/07/17 at 15:46; Status Cancel Vital Signs / I&O Vital Signs Date Time Temp Pulse Resp B/P (MAP) Pulse Ox O2 Delivery O2 Flow Rate FiO2 03/08/17 13:00 18 03/08/17 12:00 98.5 65 16 106/59 (75) 97 03/08/17 08:21 73 03/08/17 08:00 98.4 78 16 122/73 (89) 96 03/08/17 04:00 98.7 78 20 119/72 (88) 95 03/08/17 02:53 96 03/08/17 00:00 98.2 74 20 101/65 (77) 97 03/07/17 20:00 74 03/07/17 20:00 97.6 83 18 126/64 (84) 96 03/07/17 16:00 98.0 72 16 111/65 (80) 96 I/O 03/07/17 03/07/17 03/07/17 03/08/17 03/08/17 03/08/17 07:00 15:00 23:00 07:00 15:00 23:00 Intake Total 461 ml 50 ml Output Total 925 ml Balance -464 ml 50 ml IV Total 461 ml 50 ml Output Urine Total 925 ml # Bowel Movements 1 Physical Exam GENERAL: In NAD SKIN: Warm and dry. HEAD: Normocephalic. EYES: No scleral icterus. No injection or drainage. NECK: Supple, trachea midline. No JVD or lymphadenopathy. CARDIOVASCULAR: Regular rate and rhythm without murmurs, gallops, or rubs. RESPIRATORY: Breath sounds equal bilaterally. No accessory muscle use. GASTROINTESTINAL: Abdomen soft, non-tender, nondistended. MUSCULOSKELETAL: No cyanosis, or edema. S/p hallux amputation. Laboratory Laboratory Tests Test 03/08/17 08:13 Creatinine 0.92 MG/DL Estimat Glomerular Filtration Rate 84 ML/MIN Assessment and Plan Problem List: (1) CAD (coronary artery disease) ICD Codes: I25.10 - Atherosclerotic heart disease of [place] coronary artery without angina pectoris (2) PVD (peripheral vascular disease) ICD Codes: I73.9 - Peripheral vascular disease, unspecified (3) Stented coronary artery ICD Codes: Z95.5 - Presence of coronary angioplasty implant and graft Status: Acute (4) Hx of CABG ICD Codes: Z95.1 - Presence of aortocoronary bypass graft Status: Acute (5) Ischemic pain of left foot ICD Codes: M79.672 - Pain in left foot; I99.9 - Unspecified disorder of circulatory system Status: Acute (6) Diabetes mellitus ICD Codes: E11.9 - Type 2 diabetes mellitus without complications Status: Chronic (7) Carotid artery occlusion ICD Codes: I65.29 - Occlusion and stenosis of unspecified carotid artery Status: Acute (8) CHF (congestive heart failure) ICD Codes: I50.9 - Heart failure, unspecified Status: Chronic (9) Hyperlipidemia ICD Codes: E78.5 - Hyperlipidemia, unspecified Status: Chronic (10) Anemia ICD Codes: D64.9 - Anemia, unspecified Assessment and Plan Remains stable from cardiac standpoint. No angina or CHF symptoms. Stays in SR. Continue current program including Brilinta and baby ASA to prevent stent thrombosis. Continue aggressive risk factor modification. Continue monitoring on tele. Will need CEA later. Dr. Steele will take over his cardiology care. Vy Crowder MD Mar 08, 2017 13:30
[2017-03-08] MEDS: VANCOMYCIN INJ 1,750 MG in SODIUM CHLORID 0.9% 500 ML INJ 500 ML IV SCH (16:54)
[2017-03-08] MEDS: EZETIMIBE 10 MG TAB PO SCH (22:54)
[2017-03-08] MEDS: INSULIN DETEMIR 100 UNITS/ML VIAL SQ SCH (22:56)
[2017-03-09 00:57] VITALS: BP 108/65; PULSE 79; RESP 16; TEMP 98.6; O2SAT 95
[2017-03-09] MEDS: PIPERACIL-TAZO 3.375 GM PREMIX 50 ML IV SCH ×3 (04:24→14:11)
[2017-03-09 04:54] VITALS: BP 117/65; PULSE 68; RESP 18; TEMP 97.6; O2SAT 95
[2017-03-09] MEDS: INSULIN ASPART SUPPLEMENTAL SCALE SQ SCH ×4 (06:06→21:00)
[2017-03-09] MEDS: HEPARIN SODIUM - SQ 10,000 UNITS/ML VIAL SQ SCH ×3 (06:07→21:15)
[2017-03-09] MEDS: LEVOTHYROXINE SODIUM 25 MCG TAB PO SCH (06:07)
[2017-03-09] MEDS: SODIUM CHLORIDE 0.9% FLUSH 10 ML FLUSH IV FLUSH SCH ×2 (08:00→21:00)
[2017-03-09] MEDS: ATORVASTATIN 80 MG TAB PO SCH (08:04)
[2017-03-09] MEDS: REMOVE OLD PATCH T-DERMAL SCH (08:05)
[2017-03-09] MEDS: NICOTINE 21 MG/24 HR PATCH T-DERMAL SCH (08:05)
[2017-03-09] MEDS: LOSARTAN 25 MG TAB PO SCH (08:06)
[2017-03-09] MEDS: SPIRONOLACTONE 25 MG TAB PO SCH ×2 (08:10→17:23)
[2017-03-09] MEDS: CARVEDILOL 6.25 MG TAB PO SCH ×2 (08:10→21:15)
[2017-03-09] MEDS: GABAPENTIN 100 MG CAP PO SCH ×4 (08:10→21:14)
[2017-03-09] MEDS: TICAGRELOR 90 MG TAB PO SCH ×2 (08:10→21:14)
[2017-03-09] MEDS: QUEtiapine FUMARATE 100 MG TAB PO SCH ×2 (08:11→21:13)
[2017-03-09] MEDS: AZITHROMYCIN 250 MG TAB PO SCH (08:11)
[2017-03-09] MEDS: ASPIRIN 81 MG CHEW TAB PO SCH (08:11)
[2017-03-09] MEDS: FERROUS SULFATE 325 MG (65 MG ELEMENTAL IRON) TAB PO SCH ×2 (08:11→21:14)
[2017-03-09] MEDS: FUROSEMIDE 40 MG TAB PO SCH (08:11)
[2017-03-09 08:32] VITALS: BP 122/77; PULSE 72; RESP 18; TEMP 98.5; O2SAT 96
[2017-03-09 10:37] LABS: AUTOMATED NEUTROPHIL # 11.9 TH/MM3 (1.8-7.7); BASOPHIL # 0.1 TH/MM3 (0-0.2); BASOPHIL % 0.6 % (0.0-2.0); EOSINOPHIL # 0.3 TH/MM3 (0-0.4); HEMATOCRIT 32.6 % (39.0-51.0); HEMO FLAGS DIFF FINAL; LYMPH % 7.7 % (9.0-44.0); LYMPHOCYTE # 1.1 TH/MM3 (1.0-4.8); MEAN CELL VOLUME 82.6 FL (80.0-100.0); MEAN CORPUSCULAR HEMOGLOBIN 26.9 PG (27.0-34.0); MEAN CORPUSCULAR HGB CONC 32.6 % (32.0-36.0); MONO % 6.4 % (0.0-8.0); NEUT % 83.3 % (16.0-70.0); PLATELET COUNT 443 TH/MM3 (150-450); RED BLOOD COUNT 3.95 MIL/MM3 (4.50-5.90); RED CELL DISTRIBUTION WIDTH 17.6 % (11.6-17.2); WHITE BLOOD COUNT 14.3 TH/MM3 (4.0-11.0)
[2017-03-09] MEDS: VENLAFAXINE HCL XR 75 MG CAP PO SCH (11:20)
[2017-03-09 12:23] VITALS: BP 128/61; PULSE 72; RESP 18; TEMP 97.3; O2SAT 97
--- NOTE | 2017-03-09 12:35 | HHI.PR ---
Subjective Remarks This is a pleasant 61 y/o male with Left foot cellulitis, CAD status post previous CABG, with recent NSTEMI 01/05/17 status post PCI and stent placement, Atrial fibrillation status post Ablation History of V tach, Hypertension, Severe left ventricular systolic dysfunction, Ischemic cardiomyopathy, COPD, Hypothyroidism, DM II, who was just recently discharged 02/06/17. came with discoloration of the left great toe, MRI of the foot was obtained at that time which showed soft tissue ulceration and no evidence of osteomyelitis. Chest x- ray shows some worsening of the left lower lobe infiltrate. Dr. Esparza was contacted while patient still in the ED and requested at CTA with runoff be ordered and he will see him in consultation. Patient was given vancomycin and Zosyn. followed by dairy specialist, the patient has PAD, recommended to continue Brilinta and Baby Aspirin to prevent stent thrombosis. Vascular medical billing and coding specialist following, the patient has Severe Stenosis of the distal iliac arteries and bilateral common femoral arteries, severe stenosis of the SFA Bilateral, Status post revascularization of the left leg with the common femoral endarterectomy patch and superficial femoral artery balloon angioplasty has severe distal trifurcation disease and the severe SFA vascular occlusive disease. 03/03/17, recommended Podiatry for Hallux amputation Scheduled for later today by Doctor Eid. he will need Carotid Endarterectomy, he has Total left sided occlusion and right sided hemodynamically significant stenosis. ID specialist following, with Diagnosis of Worsening sepsis, Leukocytosis over 20, worsening renal function, suspected LLL PNA, to continue Vancomycin Zosyn and Azithromycin for five days. 03/06: Seen in his bedroom in the presence of his Mrs. Vicki Ovalle, he will have amputation of the Left Hallux later today. 03/07: On Vancomycin and Zosyn, status post Left Hallux and first Metatarsal Head amputation POD#1, Azithromycin for 5 days. stable seen in his room his does not want any type of narcotic for her wants me to remove all narcotics from his chart, he has no complaint, will be transferred today out of the unit. 03/08: as per dairy specialist stays in Sinus rhythm, to continue Brilinta and Aspirin to prevent thrombosis, on Empirical antibiotics as per ID specialist awaiting pathology, suspected LLL Pneumonia, to continue Vancomycin, Zosyn. seen in his bedroom in the presence of nurse Mr. Xavier he wants to go home will need clearance by Specialists. 03/09: Seen in the presence of his , already clear for discharge by Podiatry specialist and Vascular surgery, awaiting final by ID specialist for discharge. Objective Vital Signs Date Time Temp Pulse Resp B/P (MAP) Pulse Ox O2 Delivery O2 Flow Rate FiO2 03/09/17 12:23 97.3 72 18 128/61 (83) 97 03/09/17 08:32 98.5 72 18 122/77 (92) 96 03/09/17 04:54 97.6 68 18 117/65 (82) 95 03/09/17 00:57 98.6 79 16 108/65 (79) 95 03/08/17 21:30 98.1 77 18 147/85 (105) 97 03/08/17 20:00 75 03/08/17 16:00 97.5 72 16 154/67 (96) 97 03/08/17 13:00 18 I/O 03/08/17 03/08/17 03/08/17 03/09/17 03/09/17 03/09/17 07:00 15:00 23:00 07:00 15:00 23:00 Intake Total 1100 ml Output Total 950 ml Balance 150 ml Intake Oral 600 ml IV Total 500 ml Output Urine Total 950 ml # Voids 3 # Bowel Movements 0 Result Diagram: 03/09/17 0943 03/08/17 0813 Imaging Last Impressions Foot X-Ray 03/06/17 0000 Signed Impressions: Service Date/Time: Monday, March 06, 2017 17:50 - CONCLUSION: Status post big toe amputation. Leandro Catalan MD Chest X-Ray 03/05/17 0000 Signed Impressions: Service Date/Time: Sunday, March 05, 2017 03:06 - CONCLUSION: Bilateral interstitial and airspace opacity slightly increased from the prior study. The appearance and distribution favors pulmonary edema. Justus Martinez MD Aorta w/Runoff CTA 02/27/17 0000 Signed Impressions: Service Date/Time: Monday, February 27, 2017 17:08 - CONCLUSION: 1. Severe atherosclerotic disease of the abdominal aorta and its major branches and within both lower extremities. There is a moderate to severe stenosis of the midportion of the superficial femoral artery bilaterally but no vessel occlusion is identified. 2. Moderate size left pleural effusion. Justus Martinez MD Procedures s/p revascularization of the left leg with the common femoral endarterectomy patch and superficial femoral artery balloon angioplasty Other Results Laboratory Tests Test 02/27/17 14:45 02/27/17 16:45 02/28/17 19:00 03/01/17 06:32 Lactic Acid Level 1.7 mmol/L Urine Color YELLOW Urine Turbidity CLEAR Urine pH 5.5 Urine Specific [place] 1.011 Urine Protein TRACE mg/dL Urine Glucose (UA) NEG mg/dL Urine Ketones NEG mg/dL Urine Occult Blood NEG Urine Nitrite NEG Urine Bilirubin NEG Urine Urobilinogen LESS THAN 2.0 MG/DL Urine Leukocyte Esterase NEG Microscopic Urinalysis Comment CATH-CULT NOT IND Iron Level 11 MCG/DL Total Iron Binding Capacity 294 MCG/DL Percent Iron Saturation 3.7 % Ferritin 145 NG/ML Triglycerides Level 80 MG/DL Cholesterol Level 86 MG/DL LDL Cholesterol 50 MG/DL HDL Cholesterol 19.9 MG/DL Cholesterol/HDL Ratio 4.32 RATIO Random Vancomycin Level 6.1 COMMENT Test 03/03/17 21:50 03/05/17 02:00 03/05/17 16:39 03/06/17 03:57 Blood Gas Puncture Site RT RADIAL Blood Gas Patient Temperature 98.6 Blood Gas HCO3 18 mmol/L Blood Gas Base Excess -5.0 mmol/L Blood Gas Oxygen Saturation 98 % Arterial Blood pH 7.48 Arterial Blood Partial Pressure CO2 25 mmHg Arterial Blood Partial Pressure O2 109 mmHg Arterial Blood Oxygen Content 13.4 Vol % Arterial Blood Carboxyhemoglobin 1.3 % Arterial Blood Methemoglobin 0.0 % Blood Gas Hemoglobin 9.7 G/DL Oxygen Delivery Device NASAL CANNULA Blood Gas Liter Flow 3 L/M Troponin I 0.12 NG/ML B-Type Natriuretic Peptide 1091 PG/ML Prothrombin Time 14.4 SEC Prothromb Time International Ratio 1.3 RATIO Activated Partial Thromboplast Time 32.2 SEC Vancomycin Level Trough 17.4 MCG/ML Blood Urea Nitrogen 22 MG/DL Creatinine 0.98 MG/DL Random Glucose 153 MG/DL Total Protein 7.0 GM/DL Albumin 2.1 GM/DL Calcium Level 8.6 MG/DL Phosphorus Level 3.1 MG/DL Magnesium Level 1.9 MG/DL Alkaline Phosphatase 66 U/L Aspartate Amino Transf (AST/SGOT) 26 U/L Alanine Aminotransferase (ALT/SGPT) 36 U/L Total Bilirubin 0.6 MG/DL Sodium Level 138 MEQ/L Potassium Level 4.0 MEQ/L Chloride Level 106 MEQ/L Carbon Dioxide Level 22.2 MEQ/L Anion Gap 10 MEQ/L Hemoglobin A1c 6.9 % Free Thyroxine 1.23 NG/DL Thyroid Stimulating Hormone 3rd Gen 2.880 uIU/ML Test 03/08/17 08:13 03/09/17 09:43 Creatinine 0.92 MG/DL Estimat Glomerular Filtration Rate 84 ML/MIN White Blood Count 14.3 TH/MM3 Red Blood Count 3.95 MIL/MM3 Hemoglobin 10.6 GM/DL Hematocrit 32.6 % Mean Corpuscular Volume 82.6 FL Mean Corpuscular Hemoglobin 26.9 PG Mean Corpuscular Hemoglobin Concent 32.6 % Red Cell Distribution Width 17.6 % Platelet Count 443 TH/MM3 Mean Platelet Volume 7.1 FL Neutrophils (%) (Auto) 83.3 % Lymphocytes (%) (Auto) 7.7 % Monocytes (%) (Auto) 6.4 % Eosinophils (%) (Auto) 2.0 % Basophils (%) (Auto) 0.6 % Neutrophils # (Auto) 11.9 TH/MM3 Lymphocytes # (Auto) 1.1 TH/MM3 Monocytes # (Auto) 0.9 TH/MM3 Eosinophils # (Auto) 0.3 TH/MM3 Basophils # (Auto) 0.1 TH/MM3 CBC Comment DIFF FINAL Differential Comment Objective Remarks GENERAL: Obesity, no acute distress. SKIN: Warm and dry. Left lower extremity is swollen and erythematous tenderness in foot also has the wound wound HEAD: Atraumatic. Normocephalic. NECK: Trachea midline. No JVD. Neck is supple CARDIOVASCULAR: Regular rate and rhythm. S1-S2 no S3 or S4 no heave or thrill or rub or gallop RESPIRATORY: No accessory muscle use. Clear to auscultation. Breath sounds equal bilaterally. GASTROINTESTINAL: Abdomen soft, non-tender, nondistended. Hepatic and splenic margins not palpable. Obese MUSCULOSKELETAL:. Left Foot dressed. NEUROLOGICAL: Awake and alert. No obvious cranial nerve deficits. PSYCHIATRIC: Appropriate mood and affect. Medications and IVs Current Medications Medications (Trade) Dose Ordered Sig/Hugo Route Start Time Stop Time Status Last Admin (D50w (Vial) Inj) 50 ml UNSCH PRN IV 02/27/17 16:45 (Glucagon Inj) 1 mg UNSCH PRN OTHER 02/27/17 16:45 (NovoLOG SUPPLEMENTAL SCALE) 1 ACHS SLIDING SCALE SQ 02/27/17 21:00 03/08/17 22:57 Piperacillin Sod/ Tazobactam Sod 50 ml @ 100 mls/hr Q6H IV 02/27/17 21:00 03/09/17 08:11 Pharmacy Profile Note 0 ml @ 0 mls/hr UNSCH OTHER 02/27/17 16:45 (Aspirin Chew) 81 mg DAILY PO 02/28/17 09:00 03/09/17 08:11 (Coreg) 6.25 mg BID PO 02/27/17 21:00 03/09/17 08:10 (Zetia) 10 mg HS PO 02/27/17 21:00 03/08/17 22:54 (Ferrous Sulfate) 325 mg BID PO 02/27/17 21:00 03/09/17 08:11 (Neurontin) 100 mg QID PO 02/27/17 18:00 03/09/17 08:10 (Synthroid) 25 mcg DAILY@0600 PO 02/28/17 06:00 03/09/17 06:07 (Aldactone) 25 mg BIDPC PO 02/27/17 18:00 Future hold 03/09/17 08:10 (Brilinta) 90 mg BID PO 02/27/17 21:00 03/09/17 08:10 (Lipitor) 80 mg DAILY PO 03/01/17 09:00 03/09/17 08:04 Vancomycin HCl 1750 mg/Sodium Chloride 517.5 ml @ 257.5 mls/ hr Q24H IV 03/01/17 16:00 03/08/17 16:54 (Zithromax) 250 mg DAILY PO 03/02/17 09:00 03/09/17 08:11 (Lasix) 40 mg DAILY PO 03/03/17 09:00 03/09/17 08:11 (Albuterol Neb) 2.5 mg Q4HR NEB PRN INH 03/02/17 21:00 03/03/17 21:12 (Heparin Inj) 5,000 units Q8HR SQ 03/03/17 06:00 03/09/17 06:07 (Levemir Inj) 10 units HS SQ 03/03/17 21:00 03/08/17 22:56 (Haldol Inj) 4 mg Q6H PRN IM 03/03/17 14:30 03/03/17 20:43 (SEROquel) 100 mg BID PO 03/03/17 21:00 03/09/17 08:11 (Habitrol 21 Mg Patch.24 Hr) 1 patch DAILY T-DERMAL 03/04/17 00:00 03/09/17 08:05 Miscellaneous Information 1 DAILY T-DERMAL 03/04/17 09:00 03/09/17 08:05 (KlonoPIN) 0.5 mg BID PRN PO 03/04/17 09:00 Dexmedetomidine HCl 1000 mcg/ Sodium Chloride 250 ml @ 5.53 mls/hr TITRATE PRN IV 03/04/17 20:00 03/06/17 22:04 (Effexor Xr) 75 mg DAILY PO 03/04/17 22:15 03/09/17 11:20 (Cozaar) 25 mg DAILY PO 03/06/17 12:00 03/09/17 08:06 (Tylenol) 650 mg Q4H PRN PO 03/05/17 14:00 03/08/17 22:54 (NS Flush) 2 ml UNSCH PRN IV FLUSH 03/06/17 17:30 (NS Flush) 2 ml BID IV FLUSH 03/06/17 21:00 03/09/17 08:00 (Narcan Inj) 0.4 mg UNSCH PRN IV 03/06/17 17:30 A/P Assessment and Plan ischemic left foot with gangrene of the left great toe s/p status post revascularization of the left leg with the common femoral endarterectomy patch and superficial femoral artery balloon angioplasty Status post left great toe amputation by Podiatry. Dr. Eid, stable redressed today by specialist and okay to discharge and follow in his office. sepsis due to Cellulitis/Diabetic foot ulcer Continue Vancomycin, Zosyn and Azithromycin. blood cultures negative in five days. ID and podiatry following. not yet cleared by ID specialist. CAD with ischemic cardiomyopathy previous CABG recent NSTEMI status post cardiac catheterization stent implantation 12/23 History of V. tach History of atrial fibrillation status post ablation Hypertension Severe left ventricular systolic dysfunction continue aspirin 81mg and Brilinta 90mg BID, Lipitor 80mg Continue Coreg and Losartan continue Lasix and Aldactone cardiology following. acute kidney injury Improved. Type 2 DM Diabetic neuropathy Better control. Hold patient's metformin, glipizide and pioglitazone Accu-Cheks and insulin sliding scale Continue Levemir 10 units daily at bedtime Continue patient's home dose of gabapentin 100 mg by mouth 4 times a day Diabetic diet Anemia s/p PRBC transfusion- H/H now improved- will monitor Continue patient on home dose of ferrous sulfate 325 mg by mouth twice a day Hypothyroidism Continue patient on home dose of levothyroxine 25 g daily Psychosis The patient is been as outpatient on Effexor and in house is on Seroquel, he is doing better now, but his asked about the need to come back on Effexor I will monitor his behavior and continue Seroquel is been well tolerated by the patient. Full code. DVT prophylaxis; subq Heparin Discussed with Patient His . all questions answered to the best of my abilities. Nurse Mr. Park in the room will notify me once he is recommended for discharge by ID specialist. Discharge Planning Once Cleared by specialists. Marques Dick MD Mar 09, 2017 12:35
[2017-03-09] MEDS: ACETAMINOPHEN 325 MG TAB PO PRN (14:10)
--- NOTE | 2017-03-09 14:50 | PD.CARD.PN ---
Subjective Subjective Remarks Patient denies CP, SOB, leg pain, lightheadedness or palpitations. Objective Medications Current Medications Medications (Trade) Dose Ordered Sig/Hugo Route Start Time Stop Time Status Last Admin (D50w (Vial) Inj) 50 ml UNSCH PRN IV 02/27/17 16:45 (Glucagon Inj) 1 mg UNSCH PRN OTHER 02/27/17 16:45 (NovoLOG SUPPLEMENTAL SCALE) 1 ACHS SLIDING SCALE SQ 02/27/17 21:00 03/08/17 22:57 Piperacillin Sod/ Tazobactam Sod 50 ml @ 100 mls/hr Q6H IV 02/27/17 21:00 03/09/17 14:11 Pharmacy Profile Note 0 ml @ 0 mls/hr UNSCH OTHER 02/27/17 16:45 (Aspirin Chew) 81 mg DAILY PO 02/28/17 09:00 03/09/17 08:11 (Coreg) 6.25 mg BID PO 02/27/17 21:00 03/09/17 08:10 (Zetia) 10 mg HS PO 02/27/17 21:00 03/08/17 22:54 (Ferrous Sulfate) 325 mg BID PO 02/27/17 21:00 03/09/17 08:11 (Neurontin) 100 mg QID PO 02/27/17 18:00 03/09/17 12:51 (Synthroid) 25 mcg DAILY@0600 PO 02/28/17 06:00 03/09/17 06:07 (Aldactone) 25 mg BIDPC PO 02/27/17 18:00 Future hold 03/09/17 08:10 (Brilinta) 90 mg BID PO 02/27/17 21:00 03/09/17 08:10 (Lipitor) 80 mg DAILY PO 03/01/17 09:00 03/09/17 08:04 Vancomycin HCl 1750 mg/Sodium Chloride 517.5 ml @ 257.5 mls/ hr Q24H IV 03/01/17 16:00 03/08/17 16:54 (Zithromax) 250 mg DAILY PO 03/02/17 09:00 03/09/17 08:11 (Lasix) 40 mg DAILY PO 03/03/17 09:00 03/09/17 08:11 (Albuterol Neb) 2.5 mg Q4HR NEB PRN INH 03/02/17 21:00 03/03/17 21:12 (Heparin Inj) 5,000 units Q8HR SQ 03/03/17 06:00 03/09/17 12:51 (Levemir Inj) 10 units HS SQ 03/03/17 21:00 03/08/17 22:56 (Haldol Inj) 4 mg Q6H PRN IM 03/03/17 14:30 03/03/17 20:43 (SEROquel) 100 mg BID PO 03/03/17 21:00 03/09/17 08:11 (Habitrol 21 Mg Patch.24 Hr) 1 patch DAILY T-DERMAL 03/04/17 00:00 03/09/17 08:05 Miscellaneous Information 1 DAILY T-DERMAL 03/04/17 09:00 03/09/17 08:05 (KlonoPIN) 0.5 mg BID PRN PO 03/04/17 09:00 Dexmedetomidine HCl 1000 mcg/ Sodium Chloride 250 ml @ 5.53 mls/hr TITRATE PRN IV 03/04/17 20:00 03/06/17 22:04 (Effexor Xr) 75 mg DAILY PO 03/04/17 22:15 03/09/17 11:20 (Cozaar) 25 mg DAILY PO 03/06/17 12:00 03/09/17 08:06 (Tylenol) 650 mg Q4H PRN PO 03/05/17 14:00 03/09/17 14:10 (NS Flush) 2 ml UNSCH PRN IV FLUSH 03/06/17 17:30 (NS Flush) 2 ml BID IV FLUSH 03/06/17 21:00 03/09/17 08:00 (Narcan Inj) 0.4 mg UNSCH PRN IV 03/06/17 17:30 Miscellaneous Information SPECIFIC LAB TO BE MARIO... ONCE ONCE .XX 03/10/17 15:45 03/10/17 15:46 Vital Signs / I&O Vital Signs Date Time Temp Pulse Resp B/P (MAP) Pulse Ox O2 Delivery O2 Flow Rate FiO2 03/09/17 12:23 97.3 72 18 128/61 (83) 97 03/09/17 08:32 98.5 72 18 122/77 (92) 96 03/09/17 04:54 97.6 68 18 117/65 (82) 95 03/09/17 00:57 98.6 79 16 108/65 (79) 95 03/08/17 21:30 98.1 77 18 147/85 (105) 97 03/08/17 20:00 75 03/08/17 16:00 97.5 72 16 154/67 (96) 97 I/O 03/08/17 03/08/17 03/08/17 03/09/17 03/09/17 03/09/17 06:59 14:59 22:59 06:59 14:59 22:59 Intake Total 1100 ml Output Total 950 ml Balance 150 ml Intake Oral 600 ml IV Total 500 ml Output Urine Total 950 ml # Voids 3 # Bowel Movements 0 Physical Exam GENERAL: Middle age male sitting up in the chair SKIN: Warm and dry. HEAD: Normocephalic. EYES: No scleral icterus. No injection or drainage. NECK: Supple, trachea midline. CARDIOVASCULAR: Regular rate and rhythm without murmurs, gallops, or rubs. RESPIRATORY: Breath sounds equal bilaterally. No accessory muscle use. GASTROINTESTINAL: Abdomen soft, non-tender, nondistended. MUSCULOSKELETAL: Amputated left hallux, surgical boot, left extremity edema BACK: Nontender without obvious deformity. Laboratory Laboratory Tests Test 03/09/17 09:43 White Blood Count 14.3 TH/MM3 Red Blood Count 3.95 MIL/MM3 Hemoglobin 10.6 GM/DL Hematocrit 32.6 % Mean Corpuscular Volume 82.6 FL Mean Corpuscular Hemoglobin 26.9 PG Mean Corpuscular Hemoglobin Concent 32.6 % Red Cell Distribution Width 17.6 % Platelet Count 443 TH/MM3 Mean Platelet Volume 7.1 FL Neutrophils (%) (Auto) 83.3 % Lymphocytes (%) (Auto) 7.7 % Monocytes (%) (Auto) 6.4 % Eosinophils (%) (Auto) 2.0 % Basophils (%) (Auto) 0.6 % Neutrophils # (Auto) 11.9 TH/MM3 Lymphocytes # (Auto) 1.1 TH/MM3 Monocytes # (Auto) 0.9 TH/MM3 Eosinophils # (Auto) 0.3 TH/MM3 Basophils # (Auto) 0.1 TH/MM3 CBC Comment DIFF FINAL Differential Comment Assessment and Plan Problem List: (1) CAD (coronary artery disease) ICD Codes: I25.10 - Atherosclerotic heart disease of [place] coronary artery without angina pectoris (2) PVD (peripheral vascular disease) ICD Codes: I73.9 - Peripheral vascular disease, unspecified (3) Stented coronary artery ICD Codes: Z95.5 - Presence of coronary angioplasty implant and graft Status: Acute (4) Hx of CABG ICD Codes: Z95.1 - Presence of aortocoronary bypass graft Status: Acute (5) Ischemic pain of left foot ICD Codes: M79.672 - Pain in left foot; I99.9 - Unspecified disorder of circulatory system Status: Acute (6) Diabetes mellitus ICD Codes: E11.9 - Type 2 diabetes mellitus without complications Status: Chronic (7) Carotid artery occlusion ICD Codes: I65.29 - Occlusion and stenosis of unspecified carotid artery Status: Acute (8) CHF (congestive heart failure) ICD Codes: I50.9 - Heart failure, unspecified Status: Chronic (9) Hyperlipidemia ICD Codes: E78.5 - Hyperlipidemia, unspecified Status: Chronic (10) Anemia ICD Codes: D64.9 - Anemia, unspecified Assessment and Plan PLAN: Continue aggressive risk factor modification. Discussed smoking cessation. Continue current cardiac medications. Ok to discharge from cardiac standpoint Patient seen and evaluated by Dr Steele who completed face to face encounter, completed physical exam and participated in evaluation and management Radha Sweeney Mar 09, 2017 14:50
[2017-03-09] MEDS: VANCOMYCIN INJ 1,750 MG in SODIUM CHLORID 0.9% 500 ML INJ 500 ML IV SCH (16:13)
[2017-03-09 16:42] VITALS: BP 132/63; PULSE 70; RESP 18; TEMP 97.5; O2SAT 96
--- NOTE | 2017-03-09 18:55 | HHI.IDPN ---
Subjective Subjective Remarks pt is doing OK path result noted: acute osteo present , unable to determine margins invoolvement dw at b/s : according to her pt had a clx done 1 week prior and it grew MSSA Pt was given cipro, bactrim prior to presentation he remains afebrile, WBC steasily going down OP findings were dw Dr Meeks: all infected bone was removed to healthy appeairng tissues with wide margins Antibiotics vanco zosyn Allergies: Coded Allergies: cyclobenzaprine (Unverified Allergy, Severe, Flushing, 02/27/17) REDNESS lisinopril (Unverified Allergy, Unknown, Swelling, 02/27/17) ANGIOEDEMA Objective . Vital Signs Date Time Temp Pulse Resp B/P (MAP) Pulse Ox O2 Delivery O2 Flow Rate FiO2 03/09/17 16:42 97.5 70 18 132/63 (86) 96 03/09/17 12:23 97.3 72 18 128/61 (83) 97 03/09/17 08:32 98.5 72 18 122/77 (92) 96 03/09/17 04:54 97.6 68 18 117/65 (82) 95 03/09/17 00:57 98.6 79 16 108/65 (79) 95 03/08/17 21:30 98.1 77 18 147/85 (105) 97 03/08/17 20:00 75 03/09/17 03/09/17 03/10/17 14:59 22:59 06:59 Intake Total 240 ml Output Total 600 ml Balance -360 ml Intake Oral 240 ml Output Urine Total 600 ml # Bowel Movements 1 . Laboratory Tests Test 03/09/17 09:43 White Blood Count 14.3 TH/MM3 Red Blood Count 3.95 MIL/MM3 Hemoglobin 10.6 GM/DL Hematocrit 32.6 % Mean Corpuscular Volume 82.6 FL Mean Corpuscular Hemoglobin 26.9 PG Mean Corpuscular Hemoglobin Concent 32.6 % Red Cell Distribution Width 17.6 % Platelet Count 443 TH/MM3 Mean Platelet Volume 7.1 FL Neutrophils (%) (Auto) 83.3 % Lymphocytes (%) (Auto) 7.7 % Monocytes (%) (Auto) 6.4 % Eosinophils (%) (Auto) 2.0 % Basophils (%) (Auto) 0.6 % Neutrophils # (Auto) 11.9 TH/MM3 Lymphocytes # (Auto) 1.1 TH/MM3 Monocytes # (Auto) 0.9 TH/MM3 Eosinophils # (Auto) 0.3 TH/MM3 Basophils # (Auto) 0.1 TH/MM3 CBC Comment DIFF FINAL Differential Comment Laboratory Tests Test 03/08/17 08:13 Creatinine 0.92 MG/DL Estimat Glomerular Filtration Rate 84 ML/MIN Microbiology Date/Time Source Procedure Growth Status 03/08/17 12:30 Wound Foot Gram Stain - Final Resulted 03/08/17 12:30 Wound Foot Wound Culture - Preliminary NO GROWTH IN 24 HOURS. Resulted Imaging Last Impressions Foot X-Ray 03/06/17 0000 Signed Impressions: Service Date/Time: Monday, March 06, 2017 17:50 - CONCLUSION: Status post big toe amputation. Leandro Catalan MD Chest X-Ray 03/05/17 0000 Signed Impressions: Service Date/Time: Sunday, March 05, 2017 03:06 - CONCLUSION: Bilateral interstitial and airspace opacity slightly increased from the prior study. The appearance and distribution favors pulmonary edema. Justus Martinez MD Aorta w/Runoff CTA 02/27/17 0000 Signed Impressions: Service Date/Time: Monday, February 27, 2017 17:08 - CONCLUSION: 1. Severe atherosclerotic disease of the abdominal aorta and its major branches and within both lower extremities. There is a moderate to severe stenosis of the midportion of the superficial femoral artery bilaterally but no vessel occlusion is identified. 2. Moderate size left pleural effusion. Justus Martinez MD Physical Exam CONSTITUTIONAL/GENERAL: This is an obese elderly male patient, in no apparent distress. TUBES/LINES/DRAINS: SKIN: No jaundice, rashes, or lesions. Skin temperature appropriate. Not diaphoretic. RESPIRATORY/CHEST: unlabored respirations. MUSCULOSKELETAL: Extremities without clubbing, No joint tenderness or effusion noted. No calf tenderness. No mottling or clubbing. L foot dressing, brace in pllace no ascending lymphangitis, cellulitis noted NEUROLOGICAL: Awake and alert. Motor and sensory grossly within normal limits. Follows commands. Clear speech. Moves all extremities. PSYCHIATRIC: calm and cooperative Assessment & Plan Remarks PVD, severe disease L hallux DFI, L hallux wet gangrene with ascending cellulitis - sp hallux amputaion - no cultures availble to ildefonso abx,, however prior clx + for MSSA path cw osteo Multiple med problems including DM sepsis : improving Suspected LLL PNA - dc vancomycin, zosyn - start cefaolin - will give 4 weeks of cefazoline, with adjusting abx per P new clx; in case of tx failure during or after abx Rx , clx will need to be repeated -Dr Meeks will obtain officail report from [facility] next week OPAT forms filled out OK for PICC line and dc in am Plan dw pt and his puose dw Aby Mcdonnell MD Mar 09, 2017 18:55
--- NOTE | 2017-03-09 18:58 | HHI.FF ---
Infusion Therapy Location of Infusion Therapy: [facility] IV Infusion Order Patient Information Patient Weight 110.3 kg Diagnosis: Diagnosis DFI, osteo Coded Allergies: cyclobenzaprine (Unverified Allergy, Severe, Flushing, 02/27/17) REDNESS lisinopril (Unverified Allergy, Unknown, Swelling, 02/27/17) ANGIOEDEMA Administer Medication Cefazolin 2 grams IV q 8 hours Start Treatment: Mar 10, 2017 Stop Treatment: Apr 06, 2017 Additional Information Venous access: PICC Line Additional Instructions [x] Peripheral flush and dressing changes per protocol [x] Implanted port and central line ordering clinician: * Implanted port: 10 ml Normal Saline followed by 5 ml Heparin 100 units/ml Heparin flush after each use and monthly to maintain. [] May leave port accessed during therapy. [] May leave peripheral site accessed for duration of therapy. [x] If patient has SOB or respiratory distress, check oxygen saturation. If less than 90% or clinical signs of respiratory distress, administer oxygen at 2 L/min. via nasal cannula and notify physician. [x] Anaphylaxis/Reaction orders: * Stop infusion. * Keep IV line open with saline flush. * Notify physician. * Monitor vital signs every 15 minutes until symptoms resolve. * Check Oxygen saturation; Oxygen at 2 L/min. via nasal cannula if less than 90% or clinical signs of respiratory distress. * Administer diphenhydramine (Benadryl) 25 mg IV STAT, (unless patient has received as pre-med). May repeat once, if necessary. * Solu-Cortef 250 mg IVP over 30-60 seconds, use 100 mg vials for each dissolution. * Epinephrine (1mg/1 ml) 0.3 mg subcutaneously or IVP now with any signs of respiratory distress. * Check with physician for new additional pre-med orders if patient is re- challenged or re-treated. [x] May remove PICC line when treatment complete, after confirming with Physician. [x] If the patient is admitted to the hospital, the ED, or transferred via [facility] , complete transfer form including medication reconciliation order sheet. Laboratory Tests Weekly Labs: CBC w/diff, Creatinine, CRP, LFT's (Hepatic function test), SED Rate Aby Lucia MD Mar 09, 2017 18:58
[2017-03-09] MEDS ORDERED: CEFA2SOL IV (19:00)
[2017-03-09] MEDS ORDERED: SOLU250I IV PUSH (19:00)
[2017-03-09] MEDS ORDERED: EPIN1INJ21 IV PUSH (19:00)
[2017-03-09] MEDS ORDERED: EPIN1INJ21 SQ (19:00)
[2017-03-09] MEDS: INSULIN DETEMIR 100 UNITS/ML VIAL SQ SCH (21:00)
[2017-03-09] MEDS: ceFAZolin 2 GM PREMIX 50 ML IV SCH (21:16)
[2017-03-09] MEDS: EZETIMIBE 10 MG TAB PO SCH (21:16)
[2017-03-09 21:34] VITALS: BP 124/71; PULSE 76; RESP 18; TEMP 98.1; O2SAT 99
[2017-03-10] VITALS: BP 128/67; PULSE 72; RESP 20; TEMP 98.1; O2SAT 96
[2017-03-10] MEDS: HEPARIN SODIUM - SQ 10,000 UNITS/ML VIAL SQ SCH ×2 (04:52→22:27)
[2017-03-10] MEDS: LEVOTHYROXINE SODIUM 25 MCG TAB PO SCH (04:52)
[2017-03-10] MEDS: ceFAZolin 2 GM PREMIX 50 ML IV SCH ×2 (04:52→16:50)
[2017-03-10] MEDS: INSULIN ASPART SUPPLEMENTAL SCALE SQ SCH (06:28)
[2017-03-10 06:52] VITALS: BP 141/72; PULSE 81; RESP 20; TEMP 99.1; O2SAT 95
[2017-03-10 08:00] VITALS: BP 141/69; PULSE 81; RESP 18; TEMP 98.5; O2SAT 96
[2017-03-10] MEDS: SODIUM CHLORIDE 0.9% FLUSH 10 ML FLUSH IV FLUSH SCH (09:00)
--- NOTE | 2017-03-10 09:56 | RADRPT ---
EXAM DATE/TIME: 03/10/2017 09:13 [facility] COMPARISON: CHEST SINGLE AP, March 05, 2017, 3:06. INDICATIONS : Post picc line placement. MEDICAL HISTORY : Diabetes mellitus type II. Congestive heart failure. SURGICAL HISTORY : CABG. Pacemaker. ENCOUNTER: Initial ACUITY: 1 day PAIN SCORE: 0/10 LOCATION: Bilateral chest FINDINGS: One cardiomegaly and pacer device from a left subclavian transvenous approach. Sternotomy wires and m ediastinal clips are noted. The right PICC line is present. The tip of the catheter extends to at [address] the level of the SVC just inferior to the clavicles but is not clearly visualized distal to this p oint. There is abnormal opacity in the left lower lobe characteristic of consolidation and a small le ft effusion. CONCLUSION: PICC line placement as above. Jase Sargent MD on March 10, 2017 at 9:53 Board Certified Radiologist. This report was verified electronically.
[2017-03-10] MEDS: NICOTINE 21 MG/24 HR PATCH T-DERMAL SCH (10:06)
[2017-03-10] MEDS: ASPIRIN 81 MG CHEW TAB PO SCH (10:06)
[2017-03-10] MEDS: LOSARTAN 25 MG TAB PO SCH (10:06)
[2017-03-10] MEDS: SPIRONOLACTONE 25 MG TAB PO SCH (10:07)
[2017-03-10] MEDS: FERROUS SULFATE 325 MG (65 MG ELEMENTAL IRON) TAB PO SCH ×2 (10:07→22:28)
[2017-03-10] MEDS: GABAPENTIN 100 MG CAP PO SCH ×2 (10:07→22:27)
[2017-03-10] MEDS: AZITHROMYCIN 250 MG TAB PO SCH (10:07)
[2017-03-10] MEDS: VENLAFAXINE HCL XR 75 MG CAP PO SCH (10:07)
[2017-03-10] MEDS: ATORVASTATIN 80 MG TAB PO SCH (10:07)
[2017-03-10] MEDS: CARVEDILOL 6.25 MG TAB PO SCH ×2 (10:07→22:27)
[2017-03-10] MEDS: QUEtiapine FUMARATE 100 MG TAB PO SCH ×2 (10:07→22:27)
[2017-03-10] MEDS: TICAGRELOR 90 MG TAB PO SCH ×2 (10:08→22:26)
[2017-03-10] MEDS: FUROSEMIDE 40 MG TAB PO SCH (10:08)
--- NOTE | 2017-03-10 10:21 | HHI.PR ---
Subjective Remarks This is a pleasant 61 y/o male with Left foot cellulitis, CAD status post previous CABG, with recent NSTEMI 01/05/17 status post PCI and stent placement, Atrial fibrillation status post Ablation History of V tach, Hypertension, Severe left ventricular systolic dysfunction, Ischemic cardiomyopathy, COPD, Hypothyroidism, DM II, who was just recently discharged 02/06/17. came with discoloration of the left great toe, MRI of the foot was obtained at that time which showed soft tissue ulceration and no evidence of osteomyelitis. Chest x- ray shows some worsening of the left lower lobe infiltrate. Dr. Esparza was contacted while patient still in the ED and requested at CTA with runoff be ordered and he will see him in consultation. Patient was given vancomycin and Zosyn. followed by program production specialist, the patient has PAD, recommended to continue Brilinta and Baby Aspirin to prevent stent thrombosis. Vascular geospatial specialist following, the patient has Severe Stenosis of the distal iliac arteries and bilateral common femoral arteries, severe stenosis of the SFA Bilateral, Status post revascularization of the left leg with the common femoral endarterectomy patch and superficial femoral artery balloon angioplasty has severe distal trifurcation disease and the severe SFA vascular occlusive disease. 03/03/17, recommended Podiatry for Hallux amputation Scheduled for later today by Doctor Eid. he will need Carotid Endarterectomy, he has Total left sided occlusion and right sided hemodynamically significant stenosis. ID specialist following, with Diagnosis of Worsening sepsis, Leukocytosis over 20, worsening renal function, suspected LLL PNA, to continue Vancomycin Zosyn and Azithromycin for five days. 03/06: Seen in his bedroom in the presence of his Mrs. Vicki Ovlale, he will have amputation of the Left Hallux later today. 03/07: On Vancomycin and Zosyn, status post Left Hallux and first Metatarsal Head amputation POD#1, Azithromycin for 5 days. stable seen in his room his does not want any type of narcotic for her wants me to remove all narcotics from his chart, he has no complaint, will be transferred today out of the unit. 03/08: as per program production specialist stays in Sinus rhythm, to continue Brilinta and Aspirin to prevent thrombosis, on Empirical antibiotics as per ID specialist awaiting pathology, suspected LLL Pneumonia, to continue Vancomycin, Zosyn. seen in his bedroom in the presence of nurse Mr. Xavier he wants to go home will need clearance by Specialists. 03/09: Seen in the presence of his , already clear for discharge by Podiatry specialist and Vascular surgery, awaiting final by ID specialist for discharge. 03/10: Patient stable in his bedroom in the presence of his and his Nurse Mr. Contreras, as per ID specialist with Diagnosis of Left Hallux wet gangrene with ascending cellulitis, status post amputation, no cultures available but as per history past culture positive for MSSA, pathology report for Gangrenous Necrosis and acute osteomyelitis, has DM II, Severe PAD, Suspected LLL PNA, discontinued vancomycin and Zosyn and started on Cefazolin, to be given 2 grams every 8 hours and follow as outpatient by PCP, Doctor Sanders and ID specialist. discussed with at this time she is a retired nurse and states she will support the [facility] nurse Objective Vital Signs Date Time Temp Pulse Resp B/P (MAP) Pulse Ox O2 Delivery O2 Flow Rate FiO2 03/10/17 08:00 98.5 81 18 141/69 (93) 96 03/10/17 06:52 99.1 81 20 141/72 (95) 95 03/10/17 00:00 98.1 72 20 128/67 (87) 96 03/09/17 21:34 98.1 76 18 124/71 (88) 99 03/09/17 16:42 97.5 70 18 132/63 (86) 96 03/09/17 12:23 97.3 72 18 128/61 (83) 97 I/O 03/09/17 03/09/17 03/09/17 03/10/17 03/10/17 03/10/17 07:00 15:00 23:00 07:00 15:00 23:00 Intake Total 240 ml 120 ml Output Total 1500 ml 700 ml Balance -1260 ml -580 ml Intake Oral 240 ml 120 ml Output Urine Total 1500 ml 700 ml # Voids 3 # Bowel Movements 0 1 Result Diagram: 03/09/17 0943 03/08/17 0813 Imaging Last Impressions Chest X-Ray 03/10/17 0000 Signed Impressions: Service Date/Time: Friday, March 10, 2017 09:13 - CONCLUSION: PICC line placement as above. Jase Sargent MD Foot X-Ray 03/06/17 0000 Signed Impressions: Service Date/Time: Monday, March 06, 2017 17:50 - CONCLUSION: Status post big toe amputation. Leandro Catalan MD Aorta w/Runoff CTA 02/27/17 0000 Signed Impressions: Service Date/Time: Monday, February 27, 2017 17:08 - CONCLUSION: 1. Severe atherosclerotic disease of the abdominal aorta and its major branches and within both lower extremities. There is a moderate to severe stenosis of the midportion of the superficial femoral artery bilaterally but no vessel occlusion is identified. 2. Moderate size left pleural effusion. Justus Martinez MD Procedures s/p revascularization of the left leg with the common femoral endarterectomy patch and superficial femoral artery balloon angioplasty Other Results Laboratory Tests Test 02/27/17 14:45 02/27/17 16:45 02/28/17 19:00 03/01/17 06:32 Lactic Acid Level 1.7 mmol/L Urine Color YELLOW Urine Turbidity CLEAR Urine pH 5.5 Urine Specific Miles 1.011 Urine Protein TRACE mg/dL Urine Glucose (UA) NEG mg/dL Urine Ketones NEG mg/dL Urine Occult Blood NEG Urine Nitrite NEG Urine Bilirubin NEG Urine Urobilinogen LESS THAN 2.0 MG/DL Urine Leukocyte Esterase NEG Microscopic Urinalysis Comment CATH-CULT NOT IND Iron Level 11 MCG/DL Total Iron Binding Capacity 294 MCG/DL Percent Iron Saturation 3.7 % Ferritin 145 NG/ML Triglycerides Level 80 MG/DL Cholesterol Level 86 MG/DL LDL Cholesterol 50 MG/DL HDL Cholesterol 19.9 MG/DL Cholesterol/HDL Ratio 4.32 RATIO Random Vancomycin Level 6.1 COMMENT Test 03/03/17 21:50 03/05/17 02:00 03/05/17 16:39 03/06/17 03:57 Blood Gas Puncture Site RT RADIAL Blood Gas Patient Temperature 98.6 Blood Gas HCO3 18 mmol/L Blood Gas Base Excess -5.0 mmol/L Blood Gas Oxygen Saturation 98 % Arterial Blood pH 7.48 Arterial Blood Partial Pressure CO2 25 mmHg Arterial Blood Partial Pressure O2 109 mmHg Arterial Blood Oxygen Content 13.4 Vol % Arterial Blood Carboxyhemoglobin 1.3 % Arterial Blood Methemoglobin 0.0 % Blood Gas Hemoglobin 9.7 G/DL Oxygen Delivery Device NASAL CANNULA Blood Gas Liter Flow 3 L/M Troponin I 0.12 NG/ML B-Type Natriuretic Peptide 1091 PG/ML Prothrombin Time 14.4 SEC Prothromb Time International Ratio 1.3 RATIO Activated Partial Thromboplast Time 32.2 SEC Vancomycin Level Trough 17.4 MCG/ML Blood Urea Nitrogen 22 MG/DL Creatinine 0.98 MG/DL Random Glucose 153 MG/DL Total Protein 7.0 GM/DL Albumin 2.1 GM/DL Calcium Level 8.6 MG/DL Phosphorus Level 3.1 MG/DL Magnesium Level 1.9 MG/DL Alkaline Phosphatase 66 U/L Aspartate Amino Transf (AST/SGOT) 26 U/L Alanine Aminotransferase (ALT/SGPT) 36 U/L Total Bilirubin 0.6 MG/DL Sodium Level 138 MEQ/L Potassium Level 4.0 MEQ/L Chloride Level 106 MEQ/L Carbon Dioxide Level 22.2 MEQ/L Anion Gap 10 MEQ/L Hemoglobin A1c 6.9 % Free Thyroxine 1.23 NG/DL Thyroid Stimulating Hormone 3rd Gen 2.880 uIU/ML Test 03/08/17 08:13 03/09/17 09:43 Creatinine 0.92 MG/DL Estimat Glomerular Filtration Rate 84 ML/MIN White Blood Count 14.3 TH/MM3 Red Blood Count 3.95 MIL/MM3 Hemoglobin 10.6 GM/DL Hematocrit 32.6 % Mean Corpuscular Volume 82.6 FL Mean Corpuscular Hemoglobin 26.9 PG Mean Corpuscular Hemoglobin Concent 32.6 % Red Cell Distribution Width 17.6 % Platelet Count 443 TH/MM3 Mean Platelet Volume 7.1 FL Neutrophils (%) (Auto) 83.3 % Lymphocytes (%) (Auto) 7.7 % Monocytes (%) (Auto) 6.4 % Eosinophils (%) (Auto) 2.0 % Basophils (%) (Auto) 0.6 % Neutrophils # (Auto) 11.9 TH/MM3 Lymphocytes # (Auto) 1.1 TH/MM3 Monocytes # (Auto) 0.9 TH/MM3 Eosinophils # (Auto) 0.3 TH/MM3 Basophils # (Auto) 0.1 TH/MM3 CBC Comment DIFF FINAL Differential Comment Objective Remarks GENERAL: Obesity, no acute distress. SKIN: Warm and dry. Left lower extremity is swollen and erythematous tenderness in foot also has the wound wound HEAD: Atraumatic. Normocephalic. NECK: Trachea midline. No JVD. Neck is supple CARDIOVASCULAR: Regular rate and rhythm. S1-S2 no S3 or S4 no heave or thrill or rub or gallop RESPIRATORY: No accessory muscle use. Clear to auscultation. Breath sounds equal bilaterally. GASTROINTESTINAL: Abdomen soft, non-tender, nondistended. Hepatic and splenic margins not palpable. Obese MUSCULOSKELETAL:. Left Foot dressed. NEUROLOGICAL: Awake and alert. No obvious cranial nerve deficits. PSYCHIATRIC: Appropriate mood and affect. Medications and IVs Current Medications Medications (Trade) Dose Ordered Sig/Hugo Route Start Time Stop Time Status Last Admin (D50w (Vial) Inj) 50 ml UNSCH PRN IV 02/27/17 16:45 (Glucagon Inj) 1 mg UNSCH PRN OTHER 02/27/17 16:45 (NovoLOG SUPPLEMENTAL SCALE) 1 ACHS SLIDING SCALE SQ 02/27/17 21:00 03/09/17 16:00 (Aspirin Chew) 81 mg DAILY PO 02/28/17 09:00 03/10/17 10:06 (Coreg) 6.25 mg BID PO 02/27/17 21:00 03/10/17 10:07 (Zetia) 10 mg HS PO 02/27/17 21:00 03/09/17 21:16 (Ferrous Sulfate) 325 mg BID PO 02/27/17 21:00 03/10/17 10:07 (Neurontin) 100 mg QID PO 02/27/17 18:00 03/10/17 10:07 (Synthroid) 25 mcg DAILY@0600 PO 02/28/17 06:00 03/10/17 04:52 (Aldactone) 25 mg BIDPC PO 02/27/17 18:00 Future hold 03/10/17 10:07 (Brilinta) 90 mg BID PO 02/27/17 21:00 03/10/17 10:08 (Lipitor) 80 mg DAILY PO 03/01/17 09:00 03/10/17 10:07 (Zithromax) 250 mg DAILY PO 03/02/17 09:00 03/10/17 10:07 (Lasix) 40 mg DAILY PO 03/03/17 09:00 03/10/17 10:08 (Albuterol Neb) 2.5 mg Q4HR NEB PRN INH 03/02/17 21:00 03/03/17 21:12 (Heparin Inj) 5,000 units Q8HR SQ 03/03/17 06:00 03/10/17 04:52 (Levemir Inj) 10 units HS SQ 03/03/17 21:00 03/09/17 21:00 (Haldol Inj) 4 mg Q6H PRN IM 03/03/17 14:30 03/03/17 20:43 (SEROquel) 100 mg BID PO 03/03/17 21:00 03/10/17 10:07 (Habitrol 21 Mg Patch.24 Hr) 1 patch DAILY T-DERMAL 03/04/17 00:00 03/10/17 10:06 Miscellaneous Information 1 DAILY T-DERMAL 03/04/17 09:00 03/09/17 08:05 (KlonoPIN) 0.5 mg BID PRN PO 03/04/17 09:00 (Effexor Xr) 75 mg DAILY PO 03/04/17 22:15 03/10/17 10:07 (Cozaar) 25 mg DAILY PO 03/06/17 12:00 03/10/17 10:06 (Tylenol) 650 mg Q4H PRN PO 03/05/17 14:00 03/09/17 14:10 (NS Flush) 2 ml UNSCH PRN IV FLUSH 03/06/17 17:30 (NS Flush) 2 ml BID IV FLUSH 03/06/17 21:00 03/10/17 09:00 (Narcan Inj) 0.4 mg UNSCH PRN IV 03/06/17 17:30 Cefazolin Sodium/ Dextrose 50 ml @ 150 mls/hr Q8H IV 03/09/17 20:00 03/10/17 04:52 (Heparin Central Flush) See Protocol DAILY IV FLUSH 03/11/17 09:00 (Heparin Central Flush) See Protocol UNSCH PRN IV FLUSH 03/10/17 10:15 (NS Flush) UNSCH PRN IV FLUSH 03/10/17 10:15 A/P Assessment and Plan ischemic left foot with gangrene of the left great toe s/p status post revascularization of the left leg with the common femoral endarterectomy patch and superficial femoral artery balloon angioplasty Status post left great toe amputation by Podiatry. Dr. Eid, stable redressed today by specialist and okay to discharge and follow in his office. sepsis due to Cellulitis/Diabetic foot ulcer Continue Vancomycin, Zosyn and Azithromycin. blood cultures negative in five days. talked to his and his Nurse Mr. Contreras, as per ID specialist with Diagnosis of Left Hallux wet gangrene with ascending cellulitis, status post amputation, no cultures available but as per history past culture positive for MSSA, pathology report for Gangrenous Necrosis and acute osteomyelitis, has DM II, Severe PAD, Suspected LLL PNA, discontinued vancomycin and Zosyn and started on Cefazolin, to be given 2 grams every 8 hours and follow as outpatient by PCP, Doctor Sanders and ID specialist. 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 tach History of atrial fibrillation status post ablation Hypertension Severe left ventricular systolic dysfunction continue aspirin 81mg and Brilinta 90mg BID, Lipitor 80mg Continue Coreg and Losartan continue Lasix and Aldactone cardiology following. acute kidney injury Improved. Type 2 DM Diabetic neuropathy Better control. Continue home medicines at discharge. Anemia s/p PRBC transfusion- H/H now improved- will monitor Continue patient on home dose of ferrous sulfate 325 mg by mouth twice a day Hypothyroidism Continue patient on home dose of levothyroxine 25 g daily Psychosis The patient is been as outpatient on Effexor and in house is on Seroquel, he is doing better now, but his asked about the need to come back on Effexor I will monitor his behavior and continue Seroquel is been well tolerated by the patient. Full code. DVT prophylaxis; subq Heparin Discussed with Patient His . all questions answered to the best of my abilities. Nurse Mr. Contreras in the room Discharge Planning Discussed with financial reporting manager for discharge. Marques Dick MD Mar 10, 2017 10:21
[2017-03-10] MEDS ORDERED: NICO21DI25 T-DERMAL (10:26)
[2017-03-10] MEDS ORDERED: QUET1TAB8 PO (10:26)
[2017-03-10] MEDS ORDERED: FURO40TA PO (10:26)
[2017-03-10] MEDS ORDERED: ATOR1TAB18 PO (10:26)
--- NOTE | 2017-03-10 10:28 | HHI.DS ---
Discharge Summary Admission Date Feb 27, 2017 at 16:16 Discharge Date: Mar 10, 2017 Admitting Diagnosis ISCHEMIC L GREAT TOE; L FOOT CELLULITIS/ULCER FAILED OUTPT TX (1) CAD (coronary artery disease) ICD Code: I25.10 - Atherosclerotic heart disease of [place] coronary artery without angina pectoris Diagnosis: Secondary (2) CHF (congestive heart failure) ICD Code: I50.9 - Heart failure, unspecified Diagnosis: Secondary Status: Chronic (3) Hyperlipidemia ICD Code: E78.5 - Hyperlipidemia, unspecified Diagnosis: Secondary Status: Chronic (4) PVD (peripheral vascular disease) ICD Code: I73.9 - Peripheral vascular disease, unspecified Diagnosis: Principal (5) Diabetes mellitus ICD Code: E11.9 - Type 2 diabetes mellitus without complications Diagnosis: Principal Status: Chronic (6) Ischemic pain of left foot ICD Code: M79.672 - Pain in left foot; I99.9 - Unspecified disorder of circulatory system Diagnosis: Principal Status: Acute (7) Diabetic foot ulcer ICD Code: E11.621 - Type 2 diabetes mellitus with foot ulcer; L97.509 - Non- pressure chronic ulcer of other part of unspecified foot with unspecified severity Diagnosis: Principal Status: Chronic (8) Left foot infection ICD Code: L08.9 - Local infection of the skin and subcutaneous tissue, unspecified Diagnosis: Principal Status: Acute (9) Hypothyroidism ICD Code: E03.9 - Hypothyroidism, unspecified Diagnosis: Secondary Status: Chronic Procedures s/p revascularization of the left leg with the common femoral endarterectomy patch and superficial femoral artery balloon angioplasty Brief History - From Admission Written by Love Lopez PA-C acting as scribe for Dr. Shea on 02/27/17 at 16:42. This is a 61 yo male with a PMHX of Cellulitis left foot, CAD s/p previous CABG with recent NSTEMI 01/05/17, Atrial fibrillation s/p previous ablation, Hx of Vtach, Severe left ventricular systolic dysfunction, Ischemic cardiomyopathy, HTN, DM, COPD, hypothyroidism and dyslipidemia who presents to [facility] ED with complaints of increasing pain and discoloration of the left great toe. Patient was just recently admitted 02/22/17 with sepsis due to left foot infection. MRI of the foot was obtained at that time which showed soft tissue ulceration and no evidence of osteomyelitis. Patient was seen in consultation by Dr. Eid. Patient was treated with several of IV antibiotics followed by continuation of oral Cipro and clindamycin following discharge. Patient states he's been compliant with his medications and has taken them as prescribed including today. Patient states yesterday he noticed that the left great toe started turning purple with increasing pain. This worsened over the last 24 hours. He also reports drainage from the wound on the bottom of the foot. He contacted Dr. Weber's office and was told he was on vacation and was recommended to come into the ED for further evaluation and treatment. Patient denies any fever or chills at home. He states his blood sugars at home are fairly well-controlled and return in the 100s. He does admit that he occasionally has higher readings in the 300s. Patient seen in the ED. He reports his pain level is 4/10 presently. He has leukocytosis with a white count of 18.1. Heart rate is normal and he is afebrile. Lactic acid is 1.7. Na level is 127. X-ray shows soft tissue ulcer with subcutaneous emphysema with no evidence of osteomyelitis. Chest x-ray shows some worsening of the left lower lobe infiltrate. Dr. Esparza was contacted while patient still in the ED and requested at CTA with runoff be ordered and he will see him in consultation. Patient was given vancomycin and Zosyn. CBC/BMP: 03/09/17 0943 03/08/17 0813 Significant Findings Laboratory Tests Test 03/08/17 08:13 03/09/17 09:43 Estimat Glomerular Filtration Rate 84 ML/MIN (>89) White Blood Count 14.3 TH/MM3 (4.0-11.0) Red Blood Count 3.95 MIL/MM3 (4.50-5.90) Hemoglobin 10.6 GM/DL (13.0-17.0) Hematocrit 32.6 % (39.0-51.0) Mean Corpuscular Hemoglobin 26.9 PG (27.0-34.0) Red Cell Distribution Width 17.6 % (11.6-17.2) Neutrophils (%) (Auto) 83.3 % (16.0-70.0) Lymphocytes (%) (Auto) 7.7 % (9.0-44.0) Neutrophils # (Auto) 11.9 TH/MM3 (1.8-7.7) Imaging Last Impressions Chest X-Ray 03/10/17 0000 Signed Impressions: Service Date/Time: Friday, March 10, 2017 09:13 - CONCLUSION: PICC line placement as above. Jase Sargent MD Foot X-Ray 03/06/17 0000 Signed Impressions: Service Date/Time: Monday, March 06, 2017 17:50 - CONCLUSION: Status post big toe amputation. Leandro Catalan MD Aorta w/Runoff CTA 02/27/17 0000 Signed Impressions: Service Date/Time: Monday, February 27, 2017 17:08 - CONCLUSION: 1. Severe atherosclerotic disease of the abdominal aorta and its major branches and within both lower extremities. There is a moderate to severe stenosis of the midportion of the superficial femoral artery bilaterally but no vessel occlusion is identified. 2. Moderate size left pleural effusion. Justus Martinez MD PE at Discharge GENERAL: Obesity, no acute distress. SKIN: Warm and dry. Left lower extremity is swollen and erythematous tenderness in foot also has the wound wound HEAD: Atraumatic. Normocephalic. NECK: Trachea midline. No JVD. Neck is supple CARDIOVASCULAR: Regular rate and rhythm. S1-S2 no S3 or S4 no heave or thrill or rub or gallop RESPIRATORY: No accessory muscle use. Clear to auscultation. Breath sounds equal bilaterally. GASTROINTESTINAL: Abdomen soft, non-tender, nondistended. Hepatic and splenic margins not palpable. Obese MUSCULOSKELETAL:. Left Foot dressed. NEUROLOGICAL: Awake and alert. No obvious cranial nerve deficits. PSYCHIATRIC: Appropriate mood and affect. Hospital Course This is a pleasant 61 y/o male with Left foot cellulitis, CAD status post previous CABG, with recent NSTEMI 01/05/17 status post PCI and stent placement, Atrial fibrillation status post Ablation History of V tach, Hypertension, Severe left ventricular systolic dysfunction, Ischemic cardiomyopathy, COPD, Hypothyroidism, DM II, who was just recently discharged 02/06/17. came with discoloration of the left great toe, MRI of the foot was obtained at that time which showed soft tissue ulceration and no evidence of osteomyelitis. Chest x- ray shows some worsening of the left lower lobe infiltrate. Dr. Esparza was contacted while patient still in the ED and requested at CTA with runoff be ordered and he will see him in consultation. Patient was given vancomycin and Zosyn. followed by family support specialist, the patient has PAD, recommended to continue Brilinta and Baby Aspirin to prevent stent thrombosis. Vascular sports medicine specialist following, the patient has Severe Stenosis of the distal iliac arteries and bilateral common femoral arteries, severe stenosis of the SFA Bilateral, Status post revascularization of the left leg with the common femoral endarterectomy patch and superficial femoral artery balloon angioplasty has severe distal trifurcation disease and the severe SFA vascular occlusive disease. 03/03/17, recommended Podiatry for Hallux amputation Scheduled for later today by Doctor Eid. he will need Carotid Endarterectomy, he has Total left sided occlusion and right sided hemodynamically significant stenosis. ID specialist following, with Diagnosis of Worsening sepsis, Leukocytosis over 20, worsening renal function, suspected LLL PNA, to continue Vancomycin Zosyn and Azithromycin for five days. 03/06: Seen in his bedroom in the presence of his Mrs. Vicki Ovalle, he will have amputation of the Left Hallux later today. 03/07: On Vancomycin and Zosyn, status post Left Hallux and first Metatarsal Head amputation POD#1, Azithromycin for 5 days. stable seen in his room his does not want any type of narcotic for her wants me to remove all narcotics from his chart, he has no complaint, will be transferred today out of the unit. 03/08: as per family support specialist stays in Sinus rhythm, to continue Brilinta and Aspirin to prevent thrombosis, on Empirical antibiotics as per ID specialist awaiting pathology, suspected LLL Pneumonia, to continue Vancomycin, Zosyn. seen in his bedroom in the presence of nurse Mr. Park he wants to go home will need clearance by Specialists. 03/09: Seen in the presence of his , already clear for discharge by Podiatry specialist and Vascular surgery, awaiting final by ID specialist for discharge. 03/10: Patient stable in his bedroom in the presence of his and his Nurse Mr. Contreras, as per ID specialist with Diagnosis of Left Hallux wet gangrene with ascending cellulitis, status post amputation, no cultures available but as per history past culture positive for MSSA, pathology report for Gangrenous Necrosis and acute osteomyelitis, has DM II, Severe PAD, Suspected LLL PNA, discontinued vancomycin and Zosyn and started on Cefazolin, to be given 2 grams every 8 hours and follow as outpatient by PCP, Doctor Sanders and ID specialist. discussed with at this time she is a retired nurse and states she will support the [facility] nurse Assessment and Plan ischemic left foot with gangrene of the left great toe s/p status post revascularization of the left leg with the common femoral endarterectomy patch and superficial femoral artery balloon angioplasty Status post left great toe amputation by Podiatry. Dr. Eid, stable redressed today by specialist and okay to discharge and follow in his office. sepsis due to Cellulitis/Diabetic foot ulcer Continue Vancomycin, Zosyn and Azithromycin. blood cultures negative in five days. talked to his and his Nurse Mr. Contreras, as per ID specialist with Diagnosis of Left Hallux wet gangrene with ascending cellulitis, status post amputation, no cultures available but as per history past culture positive for MSSA, pathology report for Gangrenous Necrosis and acute osteomyelitis, has DM II, Severe PAD, Suspected LLL PNA, discontinued vancomycin and Zosyn and started on Cefazolin, to be given 2 grams every 8 hours and follow as outpatient by PCP, Doctor Sanders and ID specialist. discussed with at this time she is a retired nurse and states she will support the [facility] nurse CAD with ischemic cardiomyopathy previous CABG recent NSTEMI status post cardiac catheterization stent implantation 12/23 History of V. tach History of atrial fibrillation status post ablation Hypertension Severe left ventricular systolic dysfunction continue aspirin 81mg and Brilinta 90mg BID, Lipitor 80mg Continue Coreg and Losartan continue Lasix and Aldactone cardiology following. acute kidney injury Improved. Type 2 DM Diabetic neuropathy Better control. Continue home medicines at discharge. Anemia s/p PRBC transfusion- H/H now improved- will monitor Continue patient on home dose of ferrous sulfate 325 mg by mouth twice a day Hypothyroidism Continue patient on home dose of levothyroxine 25 g daily Psychosis The patient is been as outpatient on Effexor and in house is on Seroquel, he is doing better now, but his asked about the need to come back on Effexor I will monitor his behavior and continue Seroquel is been well tolerated by the patient. Full code. DVT prophylaxis; subq Heparin Discussed with Patient His . all questions answered to the best of my abilities. Nurse Mr. Contreras in the room Discharge Planning Discussed with garage manager for discharge. Pt Condition on Discharge: Good Discharge Disposition: Disch w/ Home Health Serv Discharge Time: > 30 minutes Discharge Instructions DIET: Follow Instructions for: Heart Healthy Diet, Diabetic Diet Activities you can perform: See Additionl Instruction Other Activity Instructions: Follow instructions given by Podiatry specialist and PT at discharge. Marques Dick MD Mar 10, 2017 10:28
--- NOTE | 2017-03-10 10:33 | HHI.FF ---
Face to Face Verification Diagnosis: (1) Sepsis (2) PNA (pneumonia) (3) Leukocytosis (4) Ischemic pain of left foot (5) Left foot infection (6) Gangrene of toe of left foot Physical Therapy Order: Evaluate and Treat, Improve ambulation, Strength and gait training Home Health Nursing Order: Medical education Signs/symptoms of disease process Diabetic education Medication education-adverse effect Wound care and dressing changes IV medication administration I have seen patient Omar Ovalle on 03/10/17. My clinical findings support the need for the requested home health care services because: Ltd mobility - disease progression Deconditioned w/ increased weakness I certify that my clinical findings support that this patient is homebound because: Unsafe to leave home unassisted Marques Dick MD Mar 10, 2017 10:33
[2017-03-10] MEDS ORDERED: PHARMACY ORDERED LAB ONE (15:45)
[2017-03-10] MEDS ORDERED: ACETAMINOPHEN 325 MG TAB PO PRN (16:30)
[2017-03-10] MEDS ORDERED: RESP: ALBUTEROL 2.5 MG/3 ML NEB (PRN) NEB (16:30)
[2017-03-10] MEDS ORDERED: clonazePAM 0.5 MG TAB PO PRN (16:30)
[2017-03-10] MEDS: INSULIN NovoLIN REGULAR SUPPLEMENTAL SCALE SQ SCH (21:00)
[2017-03-10] MEDS: INSULIN DETEMIR 100 UNITS/ML VIAL SQ SCH (21:00)
[2017-03-10 21:38] VITALS: BP 139/67; PULSE 78; RESP 18; TEMP 97.9; O2SAT 100
[2017-03-11] VITALS (7 sets, daily range): BP systolic 109–133; BP diastolic 58–89; PULSE 70–90; RESP 16–20; TEMP 98–98.6; O2SAT 94–98
[2017-03-11] MEDS: ceFAZolin 2 GM PREMIX 50 ML IV SCH ×3 (01:49→16:40)
[2017-03-11] MEDS: INSULIN NovoLIN REGULAR SUPPLEMENTAL SCALE SQ SCH ×4 (06:06→21:00)
[2017-03-11] MEDS: LEVOTHYROXINE SODIUM 25 MCG TAB PO SCH (06:09)
[2017-03-11] MEDS: HEPARIN SODIUM - SQ 10,000 UNITS/ML VIAL SQ SCH ×3 (06:10→22:22)
[2017-03-11] MEDS: ASPIRIN 81 MG CHEW TAB CHEW SCH (08:41)
[2017-03-11] MEDS: LOSARTAN 25 MG TAB PO SCH (08:41)
[2017-03-11] MEDS: NICOTINE 21 MG/24 HR PATCH T-DERMAL SCH (08:41)
[2017-03-11] MEDS: QUEtiapine FUMARATE 100 MG TAB PO SCH ×2 (08:41→22:23)
[2017-03-11] MEDS: FERROUS SULFATE 325 MG (65 MG ELEMENTAL IRON) TAB PO SCH ×2 (08:42→22:22)
[2017-03-11] MEDS: SPIRONOLACTONE 25 MG TAB PO SCH (08:42)
[2017-03-11] MEDS: GABAPENTIN 100 MG CAP PO SCH ×2 (08:42→22:22)
[2017-03-11] MEDS: VENLAFAXINE HCL XR 75 MG CAP PO SCH (08:42)
[2017-03-11] MEDS: FUROSEMIDE 40 MG TAB PO SCH (08:42)
[2017-03-11] MEDS: TICAGRELOR 90 MG TAB PO SCH ×2 (08:42→22:23)
[2017-03-11] MEDS: EZETIMIBE 10 MG TAB PO SCH (08:42)
[2017-03-11] MEDS: CARVEDILOL 6.25 MG TAB PO SCH ×2 (08:42→22:22)
[2017-03-11] MEDS: ATORVASTATIN 80 MG TAB PO SCH (08:45)
--- NOTE | 2017-03-11 11:05 | HHI.PR ---
Subjective Remarks This is a pleasant 61 y/o male with Left foot cellulitis, CAD status post previous CABG, with recent NSTEMI 01/05/17 status post PCI and stent placement, Atrial fibrillation status post Ablation History of V tach, Hypertension, Severe left ventricular systolic dysfunction, Ischemic cardiomyopathy, COPD, Hypothyroidism, DM II, who was just recently discharged 02/06/17. came with discoloration of the left great toe, MRI of the foot was obtained at that time which showed soft tissue ulceration and no evidence of osteomyelitis. Chest x- ray shows some worsening of the left lower lobe infiltrate. Dr. Esparza was contacted while patient still in the ED and requested at CTA with runoff be ordered and he will see him in consultation. Patient was given vancomycin and Zosyn. followed by retail operations specialist, the patient has PAD, recommended to continue Brilinta and Baby Aspirin to prevent stent thrombosis. Vascular regional facilities specialist following, the patient has Severe Stenosis of the distal iliac arteries and bilateral common femoral arteries, severe stenosis of the SFA Bilateral, Status post revascularization of the left leg with the common femoral endarterectomy patch and superficial femoral artery balloon angioplasty has severe distal trifurcation disease and the severe SFA vascular occlusive disease. 03/03/17, recommended Podiatry for Hallux amputation Scheduled for later today by Doctor Eid. he will need Carotid Endarterectomy, he has Total left sided occlusion and right sided hemodynamically significant stenosis. ID specialist following, with Diagnosis of Worsening sepsis, Leukocytosis over 20, worsening renal function, suspected LLL PNA, to continue Vancomycin Zosyn and Azithromycin for five days. 03/06: Seen in his bedroom in the presence of his Mrs. Vicki Ovalle, he will have amputation of the Left Hallux later today. 03/07: On Vancomycin and Zosyn, status post Left Hallux and first Metatarsal Head amputation POD#1, Azithromycin for 5 days. stable seen in his room his does not want any type of narcotic for her wants me to remove all narcotics from his chart, he has no complaint, will be transferred today out of the unit. 03/08: as per retail operations specialist stays in Sinus rhythm, to continue Brilinta and Aspirin to prevent thrombosis, on Empirical antibiotics as per ID specialist awaiting pathology, suspected LLL Pneumonia, to continue Vancomycin, Zosyn. seen in his bedroom in the presence of nurse Mr. Xavier he wants to go home will need clearance by Specialists. 03/09: Seen in the presence of his , already clear for discharge by Podiatry specialist and Vascular surgery, awaiting final by ID specialist for discharge. 03/10: Patient stable in his bedroom in the presence of his and his Nurse Mr. Contreras, as per ID specialist with Diagnosis of Left Hallux wet gangrene with ascending cellulitis, status post amputation, no cultures available but as per history past culture positive for MSSA, pathology report for Gangrenous Necrosis and acute osteomyelitis, has DM II, Severe PAD, Suspected LLL PNA, discontinued vancomycin and Zosyn and started on Cefazolin, to be given 2 grams every 8 hours and follow as outpatient by PCP, Doctor Sanders and ID specialist. discussed with at this time she is a retired nurse and states she will support the [facility] nurse 03/11: Seen in his bedroom in the presence of his , he is sitting awaiting for arrangements to be done by [employer] Advisor to go home on [facility]. no nausea, vomit or diarrhea. Objective Vital Signs Date Time Temp Pulse Resp B/P (MAP) Pulse Ox O2 Delivery O2 Flow Rate FiO2 03/11/17 09:20 95 03/11/17 04:00 98.1 76 20 119/62 (81) 94 03/11/17 00:00 98.1 73 18 117/59 (78) 96 03/10/17 21:38 97.9 78 18 139/67 (91) 100 I/O 03/10/17 03/10/17 03/10/17 03/11/17 03/11/17 03/11/17 06:59 14:59 22:59 06:59 14:59 22:59 Intake Total 120 ml 50 ml 52 ml Output Total 700 ml Balance -580 ml 50 ml 52 ml Intake Oral 120 ml IV Total 50 ml 52 ml Output Urine Total 700 ml Result Diagram: 03/09/17 0943 03/08/17 0813 Imaging Last Impressions Chest X-Ray 03/10/17 0000 Signed Impressions: Service Date/Time: Friday, March 10, 2017 09:13 - CONCLUSION: PICC line placement as above. Jase Sargent MD Foot X-Ray 03/06/17 0000 Signed Impressions: Service Date/Time: Monday, March 06, 2017 17:50 - CONCLUSION: Status post big toe amputation. Leandro Catalan MD Aorta w/Runoff CTA 02/27/17 0000 Signed Impressions: Service Date/Time: Monday, February 27, 2017 17:08 - CONCLUSION: 1. Severe atherosclerotic disease of the abdominal aorta and its major branches and within both lower extremities. There is a moderate to severe stenosis of the midportion of the superficial femoral artery bilaterally but no vessel occlusion is identified. 2. Moderate size left pleural effusion. Justus Martinez MD Procedures s/p revascularization of the left leg with the common femoral endarterectomy patch and superficial femoral artery balloon angioplasty Other Results Laboratory Tests Test 02/27/17 14:45 02/27/17 16:45 02/28/17 19:00 03/01/17 06:32 Lactic Acid Level 1.7 mmol/L Urine Color YELLOW Urine Turbidity CLEAR Urine pH 5.5 Urine Specific [place] 1.011 Urine Protein TRACE mg/dL Urine Glucose (UA) NEG mg/dL Urine Ketones NEG mg/dL Urine Occult Blood NEG Urine Nitrite NEG Urine Bilirubin NEG Urine Urobilinogen LESS THAN 2.0 MG/DL Urine Leukocyte Esterase NEG Microscopic Urinalysis Comment CATH-CULT NOT IND Iron Level 11 MCG/DL Total Iron Binding Capacity 294 MCG/DL Percent Iron Saturation 3.7 % Ferritin 145 NG/ML Triglycerides Level 80 MG/DL Cholesterol Level 86 MG/DL LDL Cholesterol 50 MG/DL HDL Cholesterol 19.9 MG/DL Cholesterol/HDL Ratio 4.32 RATIO Random Vancomycin Level 6.1 COMMENT Test 03/03/17 21:50 03/05/17 02:00 03/05/17 16:39 03/06/17 03:57 Blood Gas Puncture Site RT RADIAL Blood Gas Patient Temperature 98.6 Blood Gas HCO3 18 mmol/L Blood Gas Base Excess -5.0 mmol/L Blood Gas Oxygen Saturation 98 % Arterial Blood pH 7.48 Arterial Blood Partial Pressure CO2 25 mmHg Arterial Blood Partial Pressure O2 109 mmHg Arterial Blood Oxygen Content 13.4 Vol % Arterial Blood Carboxyhemoglobin 1.3 % Arterial Blood Methemoglobin 0.0 % Blood Gas Hemoglobin 9.7 G/DL Oxygen Delivery Device NASAL CANNULA Blood Gas Liter Flow 3 L/M Troponin I 0.12 NG/ML B-Type Natriuretic Peptide 1091 PG/ML Prothrombin Time 14.4 SEC Prothromb Time International Ratio 1.3 RATIO Activated Partial Thromboplast Time 32.2 SEC Vancomycin Level Trough 17.4 MCG/ML Blood Urea Nitrogen 22 MG/DL Creatinine 0.98 MG/DL Random Glucose 153 MG/DL Total Protein 7.0 GM/DL Albumin 2.1 GM/DL Calcium Level 8.6 MG/DL Phosphorus Level 3.1 MG/DL Magnesium Level 1.9 MG/DL Alkaline Phosphatase 66 U/L Aspartate Amino Transf (AST/SGOT) 26 U/L Alanine Aminotransferase (ALT/SGPT) 36 U/L Total Bilirubin 0.6 MG/DL Sodium Level 138 MEQ/L Potassium Level 4.0 MEQ/L Chloride Level 106 MEQ/L Carbon Dioxide Level 22.2 MEQ/L Anion Gap 10 MEQ/L Hemoglobin A1c 6.9 % Free Thyroxine 1.23 NG/DL Thyroid Stimulating Hormone 3rd Gen 2.880 uIU/ML Test 03/08/17 08:13 03/09/17 09:43 Creatinine 0.92 MG/DL Estimat Glomerular Filtration Rate 84 ML/MIN White Blood Count 14.3 TH/MM3 Red Blood Count 3.95 MIL/MM3 Hemoglobin 10.6 GM/DL Hematocrit 32.6 % Mean Corpuscular Volume 82.6 FL Mean Corpuscular Hemoglobin 26.9 PG Mean Corpuscular Hemoglobin Concent 32.6 % Red Cell Distribution Width 17.6 % Platelet Count 443 TH/MM3 Mean Platelet Volume 7.1 FL Neutrophils (%) (Auto) 83.3 % Lymphocytes (%) (Auto) 7.7 % Monocytes (%) (Auto) 6.4 % Eosinophils (%) (Auto) 2.0 % Basophils (%) (Auto) 0.6 % Neutrophils # (Auto) 11.9 TH/MM3 Lymphocytes # (Auto) 1.1 TH/MM3 Monocytes # (Auto) 0.9 TH/MM3 Eosinophils # (Auto) 0.3 TH/MM3 Basophils # (Auto) 0.1 TH/MM3 CBC Comment DIFF FINAL Differential Comment Objective Remarks GENERAL: Obesity, no acute distress. SKIN: Warm and dry. Left lower extremity is swollen and erythematous tenderness in foot also has the wound wound HEAD: Atraumatic. Normocephalic. NECK: Trachea midline. No JVD. Neck is supple CARDIOVASCULAR: Regular rate and rhythm. S1-S2 no S3 or S4 no heave or thrill or rub or gallop RESPIRATORY: No accessory muscle use. Clear to auscultation. Breath sounds equal bilaterally. GASTROINTESTINAL: Abdomen soft, non-tender, nondistended. Hepatic and splenic margins not palpable. Obese MUSCULOSKELETAL:. Left Foot dressed. NEUROLOGICAL: Awake and alert. No obvious cranial nerve deficits. PSYCHIATRIC: Appropriate mood and affect. Medications and IVs Current Medications Medications (Trade) Dose Ordered Sig/Hugo Route Start Time Stop Time Status Last Admin (Heparin Central Flush) See Protocol DAILY IV FLUSH 03/11/17 09:00 03/11/17 08:49 Cefazolin Sodium/ Dextrose 50 ml @ 100 mls/hr Q8H IV 03/10/17 17:00 03/11/17 08:49 (Tylenol) 650 mg Q4H PRN PO 03/10/17 16:30 03/10/17 22:39 (Albuterol Neb) 2.5 mg Q6HR NEB PRN NEB 03/10/17 16:30 (Aspirin Chew) 81 mg DAILY CHEW 03/11/17 09:00 03/11/17 08:41 (Lipitor) 80 mg DAILY PO 03/11/17 09:00 03/11/17 08:45 (Coreg) 6.25 mg Q12HR PO 03/10/17 21:00 03/11/17 08:42 (KlonoPIN) 0.5 mg Q12HR PRN PO 03/10/17 16:30 (Zetia) 10 mg DAILY PO 03/11/17 09:00 03/11/17 08:42 (Ferrous Sulfate) 325 mg BID PO 03/10/17 21:00 03/11/17 08:42 (Lasix) 40 mg DAILY PO 03/11/17 09:00 03/11/17 08:42 (Neurontin) 100 mg BID PO 03/10/17 21:00 03/11/17 08:42 (Heparin Inj) 5,000 units Q8HR SQ 03/10/17 22:00 03/11/17 06:10 (Levemir Inj) 10 units HS SQ 03/10/17 21:00 03/10/17 21:00 (Synthroid) 25 mcg DAILY@0600 PO 03/11/17 06:00 03/11/17 06:09 (Cozaar) 25 mg DAILY PO 03/11/17 09:00 03/11/17 08:41 (NovoLIN R SUPPLEMENTAL SCALE) 1 ACHS SLIDING SCALE SQ 03/10/17 21:00 03/10/17 21:00 (Habitrol 21 Mg Patch.24 Hr) 1 patch DAILY T-DERMAL 03/11/17 09:00 03/11/17 08:41 Miscellaneous Information 1 DAILY T-DERMAL 03/11/17 09:00 (SEROquel) 100 mg BID PO 03/10/17 21:00 03/11/17 08:41 (Aldactone) 25 mg DAILY PO 03/11/17 09:00 03/11/17 08:42 (Brilinta) 90 mg BID PO 03/10/17 21:00 03/11/17 08:42 (Effexor Xr) 75 mg DAILY PO 03/11/17 09:00 03/11/17 08:42 A/P Assessment and Plan ischemic left foot with gangrene of the left great toe s/p status post revascularization of the left leg with the common femoral endarterectomy patch and superficial femoral artery balloon angioplasty Status post left great toe amputation by Podiatry. Dr. Eid, stable redressed today by specialist and okay to discharge and follow in his office. sepsis due to Cellulitis/Diabetic foot ulcer Continue Vancomycin, Zosyn and Azithromycin. blood cultures negative in five days. talked to his and his Nurse Mr. Contreras, as per ID specialist with Diagnosis of Left Hallux wet gangrene with ascending cellulitis, status post amputation, no cultures available but as per history past culture positive for MSSA, pathology report for Gangrenous Necrosis and acute osteomyelitis, has DM II, Severe PAD, Suspected LLL PNA, discontinued vancomycin and Zosyn and started on Cefazolin, to be given 2 grams every 8 hours and follow as outpatient by PCP, Doctor Sanders and ID specialist. discussed with at this time she is a retired nurse and states she will support the [facility] nurse CAD with ischemic cardiomyopathy previous CABG recent NSTEMI status post cardiac catheterization stent implantation 12/23 History of V. tach History of atrial fibrillation status post ablation Hypertension Severe left ventricular systolic dysfunction continue aspirin 81mg and Brilinta 90mg BID, Lipitor 80mg Continue Coreg and Losartan continue Lasix and Aldactone cardiology following. acute kidney injury Improved. Type 2 DM Diabetic neuropathy Better control. Continue home medicines at discharge. Anemia s/p PRBC transfusion- H/H now improved- will monitor Continue patient on home dose of ferrous sulfate 325 mg by mouth twice a day Hypothyroidism Continue patient on home dose of levothyroxine 25 g daily Psychosis The patient is been as outpatient on Effexor and in house is on Seroquel, he is doing better now, but his asked about the need to come back on Effexor I will monitor his behavior and continue Seroquel is been well tolerated by the patient. Full code. DVT prophylaxis; subq Heparin Discussed with Patient His . all questions answered to the best of my abilities. Discharge Planning Awaiting for final arrangements to be performed by manager entry for discharge. may be for 03/13/17 Marques Dick MD Mar 11, 2017 11:05
--- NOTE | 2017-03-11 12:55 | PD.POD ---
Subjective Podiatric Problems History of gangrene left hallux Pain scale used: 0-10 numeric scale Pain score: 1 Remarks Patient is a 61-year-old diabetic male with peripheral vascular disease who is status post amputation of the left hallux. Patient was without complaints of pain or discomfort. Discussed with Dr. Lucia. Culture and sensitivity of the open soft tissue proximal to the amputation has no growth on culture. Dr. Lucia wishes the patient on IV antibiotics and patient is awaiting start of these to be discharged home. Patient without complaints or concerns. Past Med/Surg/Social History Past Medical History Endocrine: REPORTS HX OF: Diabetes mellitus Respiratory: REPORTS HX OF: Other respiratory history Cardiovascular: REPORTS HX OF: Atrial fibrillation, Heart failure, Hypertension , Peripheral vascular dz Genitourinary: REPORTS HX OF: Kidney disease Genetic/metabolic: DENIES HX OF: Cystic fibrosis Past Surgical History Cardiovascular: REPORTS HX OF: Angioplasty, CABG surgery, Carotid endarterectomy, Coronary stent, Pacemaker Social History Smoking Status: Former Smoker Review of Systems Notes No changes in his 14 point review of systems exam since the previous visit Objective Vital Signs Vital Signs Date Time Temp Pulse Resp B/P (MAP) Pulse Ox O2 Delivery O2 Flow Rate FiO2 03/11/17 09:20 95 03/11/17 04:00 98.1 76 20 119/62 (81) 94 03/11/17 00:00 98.1 73 18 117/59 (78) 96 03/10/17 21:38 97.9 78 18 139/67 (91) 100 Coded Allergies: cyclobenzaprine (Unverified Allergy, Severe, Flushing, 02/27/17) REDNESS lisinopril (Unverified Allergy, Unknown, Swelling, 02/27/17) ANGIOEDEMA Medications and IVs Current Medications Vancomycin HCl 1000 mg/Sodium Chloride 250 ml @ 250 mls/hr ONCE ONCE IV Last administered on 02/27/17 16:42; Start 02/27/17 at 14:15; Stop 02/27/17 at 15:14 ; Status DC Piperacillin Sod/ Tazobactam Sod 50 ml @ 100 mls/hr ONCE ONCE IV Last administered on 02/27/17 14:56; Start 02/27/17 at 14:15; Stop 02/27/17 at 14:44 ; Status DC Morphine Sulfate (Morphine Inj) 4 mg ONCE ONCE IV PUSH Last administered on 14:56; Start 02/27/17 at 14:15; Stop 02/27/17 at 14:16; Status DC Ondansetron HCl (Zofran Inj) 4 mg ONCE ONCE IV PUSH Last administered on 14:53; Start 02/27/17 at 14:15; Stop 02/27/17 at 14:16; Status DC Dextrose (D50w (Vial) Inj) 50 ml UNSCH PRN IV HYPOGLYCEMIA-SEE COMMENTS; Start 02/27/17 at 16:45; Stop 03/10/17 at 11:41; Status DC Glucagon (Glucagon Inj) 1 mg UNSCH PRN OTHER HYPOGLYCEMIA-SEE COMMENTS; Start 02/27/17 at 16:45; Stop 03/10/17 at 11:41; Status DC Insulin Aspart (NovoLOG SUPPLEMENTAL SCALE) 1 ACHS SLIDING SCALE SQ Last administered on 03/09/17 16:00; Start 02/27/17 at 21:00; Stop 03/10/17 at 11:41; Status DC Piperacillin Sod/ Tazobactam Sod 50 ml @ 100 mls/hr Q6H IV Last administered on 03/09/17 14:11; Start 02/27/17 at 21:00; Stop 03/09/17 at 18:57; Status DC Pharmacy Profile Note 0 ml @ 0 mls/hr UNSCH OTHER ; Start 02/27/17 at 16:45; Stop 03/09/17 at 18:57; Status DC Aspirin (Aspirin Chew) 81 mg DAILY PO Last administered on 03/10/17 10:06; Start 02/28/17 at 09:00; Stop 03/10/17 at 11:41; Status DC Carvedilol (Coreg) 6.25 mg BID PO Last administered on 03/10/17 10:07; Start at 21:00; Stop 03/10/17 at 11:41; Status DC Clonazepam (KlonoPIN) 0.5 mg BID PO Last administered on 03/03/17 19:59; Start 02/27/17 at 21:00; Stop 03/04/17 at 08:49; Status DC EZETIMIBE (Zetia) 10 mg HS PO Last administered on 03/09/17 21:16; Start at 21:00; Stop 03/10/17 at 11:41; Status DC Ferrous Sulfate (Ferrous Sulfate) 325 mg BID PO Last administered on 03/10/17 10:07; Start 02/27/17 at 21:00; Stop 03/10/17 at 11:41; Status DC Furosemide (Lasix) 80 mg BID PO Last administered on 03/01/17 20:05; Start at 21:00; Stop 03/01/17 at 20:26; Status DC Gabapentin (Neurontin) 100 mg QID PO Last administered on 03/10/17 10:07; Start 02/27/17 at 18:00; Stop 03/10/17 at 11:41; Status DC Levothyroxine Sodium (Synthroid) 25 mcg DAILY@0600 PO Last administered on 04:52; Start 02/28/17 at 06:00; Stop 03/10/17 at 11:41; Status DC Losartan Potassium (Cozaar) 25 mg DAILY PO Last administered on 03/04/17 08:47 ; Start 02/28/17 at 09:00; Stop 03/05/17 at 11:06; Status DC Spironolactone (Aldactone) 25 mg BIDPC PO Last administered on 03/10/17 10:07; Start 02/27/17 at 18:00; Stop 03/10/17 at 11:41; Status DC Ticagrelor (Brilinta) 90 mg BID PO Last administered on 03/10/17 10:08; Start 02/27/17 at 21:00; Stop 03/10/17 at 11:41; Status DC Non-Formulary Medication 40 mg HS PO ; Start 02/27/17 at 21:00; Status UNV Acetaminophen/ Hydrocodone Bitart ([place] 5-325 Mg) 1 tab Q4H PRN PO PAIN SCALE 3 TO 5 Last administered on 03/06/17 21:47; Start 02/27/17 at 19:00; Stop 03/07/17 at 12:48; Status DC Hydromorphone HCl (Dilaudid Pf Inj) 0.5 mg Q4H PRN IV PUSH PAIN 6-10 Last administered on 02/28/17 00:15; Start 02/27/17 at 19:00; Stop 02/28/17 at 09:51 ; Status DC Pravastatin Sodium (Pravachol) 80 mg HS PO Last administered on 02/27/17 23:53 ; Start 02/27/17 at 21:00; Stop 02/28/17 at 16:41; Status DC Vancomycin HCl 1000 mg/Sodium Chloride 250 ml @ 250 mls/hr ONCE ONCE IV Last administered on 02/28/17 00:12; Start 02/27/17 at 21:00; Stop 02/27/17 at 21:59 ; Status DC Vancomycin HCl 1750 mg/Sodium Chloride 517.5 ml @ 257.5 mls/ hr Q24H IV ; Start 02/28/17 at 21:00; Stop 03/01/17 at 13:37; Status DC Miscellaneous Information SPECIFIC LAB TO BE MARIO... ONCE ONCE .XX ; Start 03/02 at 20:45; Stop 03/02/17 at 20:46; Status Cancel Hydromorphone HCl (Dilaudid Pf Inj) 1 mg Q4H PRN IV PUSH BREAKTHROUGH PAIN; Start 02/28/17 at 11:00; Stop 03/06/17 at 19:43; Status DC Acetaminophen/ Hydrocodone Bitart ([place] 5-325 Mg) 2 tab Q4H PRN PO PAIN 6-10 Last administered on 03/07/17 11:07; Start 02/28/17 at 11:00; Stop 03/07/17 at 12:48; Status DC Atorvastatin Calcium (Lipitor) 80 mg DAILY PO Last administered on 03/10/17 10: 07; Start 03/01/17 at 09:00; Stop 03/10/17 at 11:41; Status DC Sodium Chloride 250 ml @ 15 mls/hr ONCE ONCE IV Last administered on 21:30; Start 02/28/17 at 17:30; Stop 03/01/17 at 10:09; Status DC Furosemide (Lasix Inj) 20 mg ONCE ONCE IV Last administered on 03/01/17 01:36 ; Start 02/28/17 at 17:30; Stop 02/28/17 at 17:32; Status DC Cefazolin Sodium/ Dextrose 50 ml @ 100 mls/hr MAIL PROCESSING MACHINE OPERATOR IV ; Start 03/01/17 at 10:00; Stop 03/04/17 at 09:59; Status DC Sodium Chloride 250 ml @ 15 mls/hr ONCE ONCE IV Last administered on 13:20; Start 03/01/17 at 12:30; Stop 03/02/17 at 05:09; Status DC Furosemide (Lasix Inj) 20 mg UNSCH X1 PRN IV AFTER 1ST UNIT OF BLOOD Last administered on 03/01/17 17:13; Start 03/01/17 at 12:30; Stop 03/01/17 at 23:59 ; Status DC Vancomycin HCl 1750 mg/Sodium Chloride 517.5 ml @ 257.5 mls/ hr Q24H IV Last administered on 03/09/17 16:13; Start 03/01/17 at 16:00; Stop 03/09/17 at 18:57; Status DC Miscellaneous Information SPECIFIC LAB TO BE DRAWN:VANCOMYCIN TROUGH DATE TO... ONCE ONCE .XX ; Start 03/03/17 at 15:45; Stop 03/03/17 at 15:46; Status DC Azithromycin (Zithromax) 500 mg ONCE ONCE PO Last administered on 03/01/17 20 :07; Start 03/01/17 at 20:00; Stop 03/01/17 at 20:02; Status DC Azithromycin (Zithromax) 250 mg DAILY PO Last administered on 03/10/17 10:07; Start 03/02/17 at 09:00; Stop 03/10/17 at 11:41; Status DC Furosemide (Lasix Inj) 20 mg UNSCH X1 PRN IV PUSH AFTER 2ND UNIT OF PRBC Last administered on 03/02/17 01:09; Start 03/01/17 at 20:30; Stop 03/02/17 at 16:00 ; Status DC Furosemide (Lasix) 40 mg ONCE ONCE PO Last administered on 03/01/17 21:00; Start 03/01/17 at 21:00; Stop 03/01/17 at 21:01; Status DC Furosemide (Lasix) 80 mg BID PO ; Start 03/02/17 at 09:00; Stop 03/02/17 at 09: 00; Status DC Lactated Ringer's 1,000 ml @ 30 mls/hr Q24H PRN IV SEE LABEL COMMENTS; Start at 00:30; Stop 03/05/17 at 00:29; Status DC Povidone Iodine (Betadine 5% Antisepsis Kit) 1 applic MAIL PROCESSING MACHINE OPERATOR PRN EACH NARE SEE LABEL COMMENTS; Start 03/02/17 at 00:30; Stop 03/05/17 at 00:29; Status DC Chlorhexidine Gluconate (Chlorhexidine 2% Cloth) 3 pack MAIL PROCESSING MACHINE OPERATOR PRN TOPICAL SEE LABEL COMMENTS; Start 03/02/17 at 00:30; Stop 03/05/17 at 00:29; Status DC Furosemide (Lasix) 40 mg DAILY PO Last administered on 03/10/17 10:08; Start at 09:00; Stop 03/10/17 at 11:41; Status DC Heparin Sodium (Porcine) (Heparin Inj) 10,000 units STK-MED ONCE .ROUTE Last administered on 03/02/17 12:27; Start 03/02/17 at 09:53; Stop 03/02/17 at 09:54 ; Status DC Acetaminophen 100 ml @ As Directed STK-MED ONCE IV ; Start 03/02/17 at 09:56; Stop 03/02/17 at 09:57; Status DC Midazolam HCl (Versed Inj) 2 mg STK-MED ONCE .ROUTE ; Start 03/02/17 at 09:57; Stop 03/02/17 at 09:58; Status DC Famotidine (Pepcid Inj) 20 mg STK-MED ONCE .ROUTE ; Start 03/02/17 at 09:57; Stop 03/02/17 at 09:58; Status DC Sugammadex Sodium (Bridion Inj) 200 mg STK-MED ONCE IV PUSH ; Start 03/02/17 at 09:57; Stop 03/02/17 at 09:58; Status DC Fentanyl Citrate (fentaNYL INJ) 250 mcg STK-MED ONCE .ROUTE ; Start 03/02/17 at 10:00; Stop 03/02/17 at 10:01; Status DC Bupivacaine HCl/ Epinephrine Bitart (Sensorcaine-Epinephrine Pf 0.5% Inj) 30 ml STK-MED ONCE .ROUTE ; Start 03/02/17 at 11:51; Stop 03/02/17 at 11:52; Status DC Heparin Sodium (Porcine) (Heparin Inj) 10,000 units STK-MED ONCE .ROUTE Last administered on 8/25/17at 12:03; Start 03/02/17 at 12:48; Stop 03/02/17 at 12:49 ; Status DC Iohexol 35 ml @ 0 mls/hr ONCE ONCE IV ; Start 03/02/17 at 15:21; Stop 03/02/17 at 15:45; Status DC Morphine Sulfate (*morphine INJ PERIprocedure ONLY) 8 mg STK-MED ONCE .ROUTE Last administered on 03/02/17 15:46; Start 03/02/17 at 15:46; Stop 03/02/17 at 15:47; Status DC Albuterol Sulfate (*ALBUTEROL NEB PERIprocedure ONLY) 2.5 mg STK-MED ONCE NEB Last administered on 03/02/17 15:47; Start 03/02/17 at 15:47; Stop 03/02/17 at 15:48; Status DC Phenylephrine HCl (Neosynephrine Inj) 40 mg STK-MED ONCE .ROUTE ; Start at 15:52; Stop 03/02/17 at 15:53; Status DC Bacitracin (Baciguent Oint) 15 applic STK-MED ONCE .ROUTE ; Start 03/02/17 at 16 :01; Stop 03/02/17 at 16:02; Status DC Morphine Sulfate (*morphine INJ PERIprocedure ONLY) 8 mg STK-MED ONCE .ROUTE Last administered on 03/02/17 16:26; Start 03/02/17 at 16:26; Stop 03/02/17 at 16:27; Status DC Haloperidol Lactate (Haldol Inj) 5 mg STK-MED ONCE .ROUTE Last administered on 03/02/17 16:40; Start 03/02/17 at 16:40; Stop 03/02/17 at 16:41; Status DC Haloperidol Lactate (Haldol Inj) 2.5 mg NOW ONCE IV PUSH ; Start 03/02/17 at 17 :00; Stop 03/02/17 at 17:01; Status DC Albuterol Sulfate (Albuterol Neb) 2.5 mg Q4HR NEB PRN INH SOB/WHEEZING Last administered on 03/03/17 21:12; Start 03/02/17 at 21:00; Stop 03/10/17 at 11:41 ; Status DC Heparin Sodium (Porcine) (Heparin Inj) 5,000 units Q8HR SQ Last administered on 03/10/17 04:52; Start 03/03/17 at 06:00; Stop 03/10/17 at 11:41; Status DC Insulin Detemir (Levemir Inj) 10 units HS SQ Last administered on 03/09/17 21: 00; Start 03/03/17 at 21:00; Stop 03/10/17 at 11:41; Status DC Haloperidol Lactate (Haldol Inj) 4 mg Q6H PRN IM AGITATION Last administered on 03/03/17 20:43; Start 03/03/17 at 14:30; Stop 03/10/17 at 11:41; Status DC Quetiapine Fumarate (SEROquel) 100 mg BID PO Last administered on 03/10/17 10: 07; Start 03/03/17 at 21:00; Stop 03/10/17 at 11:41; Status DC Dexmedetomidine HCl (Precedex Inj) 200 mcg STK-MED ONCE .ROUTE Last administered on 03/03/17 22:39; Start 03/03/17 at 22:39; Stop 03/03/17 at 22:40 ; Status DC Dexmedetomidine HCl (Precedex Inj) 200 mcg STK-MED ONCE .ROUTE Last administered on 03/03/17 23:17; Start 03/03/17 at 23:17; Stop 03/03/17 at 23:18 ; Status DC Dexmedetomidine HCl 200 mcg/ Sodium Chloride 50 ml @ 5.53 mls/hr TITRATE PRN IV Desired RASS Last administered on 03/04/17 00:55; Start 03/03/17 at 23:45; Stop 03/04/17 at 19:51; Status DC Nicotine (Habitrol 21 Mg Patch.24 Hr) 1 patch DAILY T-DERMAL Last administered on 03/10/17 10:06; Start 03/04/17 at 00:00; Stop 03/10/17 at 11:41; Status DC Miscellaneous Information 1 DAILY T-DERMAL Last administered on 03/09/17 08:05 ; Start 03/04/17 at 09:00; Stop 03/10/17 at 11:41; Status DC Clonazepam (KlonoPIN) 0.5 mg BID PRN PO Anxiety; Start 03/04/17 at 09:00; Stop 03/10/17 at 11:41; Status DC Dexmedetomidine HCl 1000 mcg/ Sodium Chloride 250 ml @ 5.53 mls/hr TITRATE PRN IV Desired RASS Last administered on 03/06/17 22:04; Start 03/04/17 at 20: 00; Stop 03/09/17 at 15:27; Status DC Venlafaxine HCl (Effexor) 75 mg DAILY PO Last administered on 03/04/17 22:02; Start 03/04/17 at 20:45; Stop 03/04/17 at 22:08; Status DC Venlafaxine HCl (Effexor Xr) 75 mg DAILY PO Last administered on 03/10/17 10:07 ; Start 03/04/17 at 22:15; Stop 03/10/17 at 11:41; Status DC Miscellaneous Information SPECIFIC LAB TO BE DRAWN:[facility]... ONCE ONCE .XX ; Start 03/05/17 at 15:45; Stop 03/05/17 at 15:46; Status DC Potassium Bicarb/ Potassium Chloride (K-Lyte Cl Eff) 25 meq ONCE ONCE PO Last administered on 03/05/17 03:18; Start 03/05/17 at 03:15; Stop 03/05/17 at 03:16; Status DC Potassium Chloride 100 ml @ 50 mls/hr ONCE ONCE IV Last administered on 03:18; Start 03/05/17 at 03:15; Stop 03/05/17 at 05:14; Status DC Losartan Potassium (Cozaar) 25 mg DAILY PO Last administered on 03/10/17 10:06 ; Start 03/06/17 at 12:00; Stop 03/10/17 at 11:41; Status DC Acetaminophen (Tylenol) 650 mg Q4H PRN PO PAIN SCALE 1 TO 6 Last administered on 03/09/17 14:10; Start 03/05/17 at 14:00; Stop 03/10/17 at 11:41; Status DC Miscellaneous Information SPECIFIC LAB TO BE DRAWN:MIKE TROUGH DATE TO BE DR... ONCE ONCE .XX ; Start 03/07/17 at 15:45; Stop 03/07/17 at 15:46; Status Cancel Bupivacaine HCl (Marcaine Pf 0.5% Inj) 30 ml STK-MED ONCE .ROUTE Last administered on 03/06/17 16:41; Start 03/06/17 at 16:12; Stop 03/06/17 at 16:13 ; Status DC Lidocaine HCl (Xylocaine 1% Inj (50 ml)) 50 ml STK-MED ONCE .ROUTE Last administered on 03/06/17 16:41; Start 03/06/17 at 16:13; Stop 03/06/17 at 16:14 ; Status DC Sugammadex Sodium (Bridion Inj) 200 mg STK-MED ONCE IV PUSH ; Start 03/06/17 at 17:00; Stop 03/06/17 at 17:01; Status DC Sodium Chloride (NS Flush) 2 ml UNSCH PRN IV FLUSH FLUSH AFTER USING IV ACCESS ; Start 03/06/17 at 17:30; Stop 03/10/17 at 11:41; Status DC Sodium Chloride (NS Flush) 2 ml BID IV FLUSH Last administered on 03/10/17 09: 00; Start 03/06/17 at 21:00; Stop 03/10/17 at 11:41; Status DC Miscellaneous Information (Post-op Orders (for Pharmacy)) STAT ONCE XX ; Start 03/06/17 at 17:30; Stop 03/06/17 at 19:44; Status DC Acetaminophen (Tylenol) 650 mg Q6H PRN PO PAIN SCALE 1 TO 2; Start 03/06/17 at 17:30; Stop 03/07/17 at 12:48; Status DC Hydromorphone HCl (Dilaudid Pf Inj) 1 mg Q3H PRN IV BREAKTHROUGH PAIN; Start at 17:30; Stop 03/07/17 at 12:49; Status DC Oxycodone HCl (Roxicodone) 5 mg Q4H PRN PO PAIN SCALE 3 TO 5; Start 03/06/17 at 17:30; Stop 03/07/17 at 12:51; Status DC Hydromorphone HCl (Dilaudid) 2 mg Q4H PRN PO PAIN SCALE 6 TO 10; Start at 17:30; Stop 03/07/17 at 12:49; Status DC Naloxone HCl (Narcan Inj) 0.4 mg UNSCH PRN IV SEE LABEL COMMENTS; Start at 17:30; Stop 03/10/17 at 11:41; Status DC Fentanyl Citrate (fentaNYL INJ) 200 mcg STK-MED ONCE .ROUTE ; Start 03/06/17 at 17:50; Stop 03/06/17 at 17:51; Status DC Miscellaneous Information ALL NURSING DEPARTME... UNSCH PRN .XX SEE LABEL COMMENTS; Start 03/06/17 at 17:44; Stop 03/07/17 at 17:43; Status DC Miscellaneous Information SPECIFIC LAB TO BE MARIO... ONCE ONCE .XX ; Start at 15:45; Stop 03/10/17 at 15:45; Status DC Cefazolin Sodium/ Dextrose 50 ml @ 150 mls/hr Q8H IV Last administered on 04:52; Start 03/09/17 at 20:00; Stop 03/10/17 at 11:41; Status DC Heparin Sodium (Porcine) (Heparin Central Flush) See Protocol DAILY IV FLUSH Last administered on 03/11/17 08:49; Start 03/11/17 at 09:00 Heparin Sodium (Porcine) (Heparin Central Flush) See Protocol UNSCH PRN IV FLUSH SEE PROTOCOL TABLE; Start 03/10/17 at 10:15; Stop 03/10/17 at 11:41; Status DC Sodium Chloride (NS Flush) UNSCH PRN IV FLUSH SEE PROTOCOL TABLE; Start at 10:15; Stop 03/10/17 at 11:41; Status DC Cefazolin Sodium/ Dextrose 50 ml @ 100 mls/hr Q8H IV Last administered on 08:49; Start 03/10/17 at 17:00 Acetaminophen (Tylenol) 650 mg Q4H PRN PO PAIN SCALE 1 TO 6 Last administered on 03/10/17 22:39; Start 03/10/17 at 16:30 Albuterol Sulfate (Albuterol Neb) 2.5 mg Q6HR NEB PRN NEB SHORTNESS OF BREATH; Start 03/10/17 at 16:30 Aspirin (Aspirin Chew) 81 mg DAILY CHEW Last administered on 03/11/17 08:41; Start 03/11/17 at 09:00 Atorvastatin Calcium (Lipitor) 80 mg DAILY PO Last administered on 03/11/17 08: 45; Start 03/11/17 at 09:00 Carvedilol (Coreg) 6.25 mg Q12HR PO Last administered on 03/11/17 08:42; Start 03/10/17 at 21:00 Clonazepam (KlonoPIN) 0.5 mg Q12HR PRN PO MODERATE TO SEVERE ANXIETY; Start 03/10/17 at 16:30 EZETIMIBE (Zetia) 10 mg DAILY PO Last administered on 03/11/17 08:42; Start 03/11/17 at 09:00 Ferrous Sulfate (Ferrous Sulfate) 325 mg BID PO Last administered on 03/11/17 08:42; Start 03/10/17 at 21:00 Furosemide (Lasix) 40 mg DAILY PO Last administered on 03/11/17 08:42; Start at 09:00 Gabapentin (Neurontin) 100 mg BID PO Last administered on 03/11/17 08:42; Start 03/10/17 at 21:00 Heparin Sodium (Porcine) (Heparin Inj) 5,000 units Q8HR SQ Last administered on 03/11/17 06:10; Start 03/10/17 at 22:00 Insulin Detemir (Levemir Inj) 10 units HS SQ Last administered on 03/10/17 21: 00; Start 03/10/17 at 21:00 Levothyroxine Sodium (Synthroid) 25 mcg DAILY@0600 PO Last administered on 06:09; Start 03/11/17 at 06:00 Losartan Potassium (Cozaar) 25 mg DAILY PO Last administered on 03/11/17 08:41 ; Start 03/11/17 at 09:00 Insulin Human Regular (NovoLIN R SUPPLEMENTAL SCALE) 1 ACHS SLIDING SCALE SQ Last administered on 03/10/17 21:00; Start 03/10/17 at 21:00 Nicotine (Habitrol 21 Mg Patch.24 Hr) 1 patch DAILY T-DERMAL Last administered on 03/11/17 08:41; Start 03/11/17 at 09:00 Miscellaneous Information 1 DAILY T-DERMAL ; Start 03/11/17 at 09:00 Quetiapine Fumarate (SEROquel) 100 mg BID PO Last administered on 03/11/17 08: 41; Start 03/10/17 at 21:00 Spironolactone (Aldactone) 25 mg DAILY PO Last administered on 03/11/17 08:42; Start 03/11/17 at 09:00 Ticagrelor (Brilinta) 90 mg BID PO Last administered on 03/11/17 08:42; Start 03/10/17 at 21:00 Venlafaxine HCl (Effexor Xr) 75 mg DAILY PO Last administered on 03/11/17 08:42 ; Start 03/11/17 at 09:00 Exam-Podiatry Constitutional General appearance: comfortable Nutritional status: overweight Orientation: alert and oriented x3 Dermatological Exam Skin Temp - Right: Within Normal Limits Skin Texture - Right: Within Normal Limits Skin Elasticity - Right: Within Normal Limits Skin Tugor - Right: Within Normal Limits Hair Growth - Right: Within Normal Limits Pigmentation - Right: Within Normal Limits Skin Temp - Left: Within Normal Limits Skin Texture - Left: Within Normal Limits Skin Elasticity - Left: Within Normal Limits Skin Tugor - Left: Within Normal Limits Hair Growth - Left: Within Normal Limits Pigmentation - Left: Within Normal Limits Other: Scars, Surgery,Injury Amputation of the right hallux. Dressing dry and intact. Vascular/Lymphatic Exam R Dorsails Pedis: Palpable L Dorsails Pedis: Palpable R Posterior Tibial: Palpable L Posterior Tibial: Palpable Neurologic Exam Present on right: Tingling, Paraesthesia Present on left: Tingling, Paraesthesia Assessment & Plan Diagnosis: (1) Gangrene of toe of left foot ICD Codes: I96 - Gangrene, not elsewhere classified Status: Resolved A/P PLAN: Patient can be discharged when antibiotics are arranged. Follow-up with me in the wound Center next . Ismael Eid DPM Mar 11, 2017 12:55
--- NOTE | 2017-03-11 14:59 | PD.CARD.PN ---
Subjective Subjective Remarks the patient denies CP, SOB, palpitation or lightheadedness. Wants to go home. Objective Medications Current Medications Medications (Trade) Dose Ordered Sig/Hugo Route Start Time Stop Time Status Last Admin (Heparin Central Flush) See Protocol DAILY IV FLUSH 03/11/17 09:00 03/11/17 08:49 Cefazolin Sodium/ Dextrose 50 ml @ 100 mls/hr Q8H IV 03/10/17 17:00 03/11/17 08:49 (Tylenol) 650 mg Q4H PRN PO 03/10/17 16:30 03/10/17 22:39 (Albuterol Neb) 2.5 mg Q6HR NEB PRN NEB 03/10/17 16:30 (Aspirin Chew) 81 mg DAILY CHEW 03/11/17 09:00 03/11/17 08:41 (Lipitor) 80 mg DAILY PO 03/11/17 09:00 03/11/17 08:45 (Coreg) 6.25 mg Q12HR PO 03/10/17 21:00 03/11/17 08:42 (KlonoPIN) 0.5 mg Q12HR PRN PO 03/10/17 16:30 (Zetia) 10 mg DAILY PO 03/11/17 09:00 03/11/17 08:42 (Ferrous Sulfate) 325 mg BID PO 03/10/17 21:00 03/11/17 08:42 (Lasix) 40 mg DAILY PO 03/11/17 09:00 03/11/17 08:42 (Neurontin) 100 mg BID PO 03/10/17 21:00 03/11/17 08:42 (Heparin Inj) 5,000 units Q8HR SQ 03/10/17 22:00 03/11/17 13:30 (Levemir Inj) 10 units HS SQ 03/10/17 21:00 03/10/17 21:00 (Synthroid) 25 mcg DAILY@0600 PO 03/11/17 06:00 03/11/17 06:09 (Cozaar) 25 mg DAILY PO 03/11/17 09:00 03/11/17 08:41 (NovoLIN R SUPPLEMENTAL SCALE) 1 ACHS SLIDING SCALE SQ 03/10/17 21:00 03/11/17 13:27 (Habitrol 21 Mg Patch.24 Hr) 1 patch DAILY T-DERMAL 03/11/17 09:00 03/11/17 08:41 Miscellaneous Information 1 DAILY T-DERMAL 03/11/17 09:00 (SEROquel) 100 mg BID PO 03/10/17 21:00 03/11/17 08:41 (Aldactone) 25 mg DAILY PO 03/11/17 09:00 03/11/17 08:42 (Brilinta) 90 mg BID PO 03/10/17 21:00 03/11/17 08:42 (Effexor Xr) 75 mg DAILY PO 03/11/17 09:00 03/11/17 08:42 Vital Signs / I&O Vital Signs Date Time Temp Pulse Resp B/P (MAP) Pulse Ox O2 Delivery O2 Flow Rate FiO2 03/11/17 12:00 98.6 70 18 109/58 (75) 96 03/11/17 09:20 95 03/11/17 08:00 98.3 79 18 123/63 (83) 96 03/11/17 04:00 98.1 76 20 119/62 (81) 94 03/11/17 00:00 98.1 73 18 117/59 (78) 96 03/10/17 21:38 97.9 78 18 139/67 (91) 100 I/O 03/10/17 03/10/17 03/10/17 03/11/17 03/11/17 03/11/17 07:00 15:00 23:00 07:00 15:00 23:00 Intake Total 120 ml 50 ml 52 ml Output Total 700 ml Balance -580 ml 50 ml 52 ml Intake Oral 120 ml IV Total 50 ml 52 ml Output Urine Total 700 ml Physical Exam GENERAL: Middle age male sitting up in the chair, in the room. SKIN: Warm and dry. HEAD: Normocephalic. EYES: No scleral icterus. No injection or drainage. NECK: Supple, trachea midline. CARDIOVASCULAR: Regular rate and rhythm without murmurs, gallops, or rubs. RESPIRATORY: Breath sounds equal bilaterally. No accessory muscle use. GASTROINTESTINAL: Abdomen soft, non-tender, nondistended. MUSCULOSKELETAL: Amputated left hallux, surgical boot, left extremity edema BACK: Nontender without obvious deformity. Laboratory Laboratory Tests Test 03/09/17 09:43 White Blood Count 14.3 TH/MM3 (4.0-11.0) Red Blood Count 3.95 MIL/MM3 (4.50-5.90) Hemoglobin 10.6 GM/DL (13.0-17.0) Hematocrit 32.6 % (39.0-51.0) Mean Corpuscular Hemoglobin 26.9 PG (27.0-34.0) Red Cell Distribution Width 17.6 % (11.6-17.2) Neutrophils (%) (Auto) 83.3 % (16.0-70.0) Lymphocytes (%) (Auto) 7.7 % (9.0-44.0) Neutrophils # (Auto) 11.9 TH/MM3 (1.8-7.7) Imaging Last 72 hours Impressions Chest X-Ray 03/10/17 0000 Signed Impressions: Service Date/Time: Sunday, March 10, 2017 09:13 - CONCLUSION: PICC line placement as above. Jase Sargent MD Assessment and Plan Problem List: (1) CAD (coronary artery disease) ICD Codes: I25.10 - Atherosclerotic heart disease of [place] coronary artery without angina pectoris (2) PVD (peripheral vascular disease) ICD Codes: I73.9 - Peripheral vascular disease, unspecified (3) Stented coronary artery ICD Codes: Z95.5 - Presence of coronary angioplasty implant and graft Status: Acute (4) Hx of CABG ICD Codes: Z95.1 - Presence of aortocoronary bypass graft Status: Acute (5) Ischemic pain of left foot ICD Codes: M79.672 - Pain in left foot; I99.9 - Unspecified disorder of circulatory system Status: Acute (6) Diabetes mellitus ICD Codes: E11.9 - Type 2 diabetes mellitus without complications Status: Chronic (7) Carotid artery occlusion ICD Codes: I65.29 - Occlusion and stenosis of unspecified carotid artery Status: Acute (8) CHF (congestive heart failure) ICD Codes: I50.9 - Heart failure, unspecified Status: Chronic (9) Hyperlipidemia ICD Codes: E78.5 - Hyperlipidemia, unspecified Status: Chronic (10) Anemia ICD Codes: D64.9 - Anemia, unspecified Assessment and Plan PLAN: Continue aggressive risk factor modification. Continue current cardiac medications. Will need to taper nicotine after discharge. Agrees to stay cigarette free Ok to discharge from cardiac standpoint Patient seen and evaluated by Dr Steele who completed face to face encounter, completed physical exam and participated in evaluation and management Radha Sweeney Mar 11, 2017 14:59
[2017-03-11] MEDS: INSULIN DETEMIR 100 UNITS/ML VIAL SQ SCH (21:00)
[2017-03-12] VITALS (8 sets, daily range): BP systolic 110–138; BP diastolic 58–75; PULSE 76–102; RESP 15–18; TEMP 97.1–98.7; O2SAT 96–97
[2017-03-12] MEDS: ceFAZolin 2 GM PREMIX 50 ML IV SCH ×3 (00:48→16:05)
[2017-03-12] MEDS: INSULIN NovoLIN REGULAR SUPPLEMENTAL SCALE SQ SCH ×4 (05:36→20:19)
[2017-03-12] MEDS: HEPARIN SODIUM - SQ 10,000 UNITS/ML VIAL SQ SCH ×3 (05:37→20:12)
[2017-03-12] MEDS: LEVOTHYROXINE SODIUM 25 MCG TAB PO SCH (05:37)
[2017-03-12] MEDS: EZETIMIBE 10 MG TAB PO SCH (08:19)
[2017-03-12] MEDS: FERROUS SULFATE 325 MG (65 MG ELEMENTAL IRON) TAB PO SCH ×2 (08:19→20:11)
[2017-03-12] MEDS: ATORVASTATIN 80 MG TAB PO SCH (08:19)
[2017-03-12] MEDS: FUROSEMIDE 40 MG TAB PO SCH (08:20)
[2017-03-12] MEDS: VENLAFAXINE HCL XR 75 MG CAP PO SCH (08:20)
[2017-03-12] MEDS: CARVEDILOL 6.25 MG TAB PO SCH ×2 (08:20→20:11)
[2017-03-12] MEDS: ASPIRIN 81 MG CHEW TAB CHEW SCH (08:20)
[2017-03-12] MEDS: GABAPENTIN 100 MG CAP PO SCH ×2 (08:20→20:11)
[2017-03-12] MEDS: QUEtiapine FUMARATE 100 MG TAB PO SCH ×2 (08:20→20:11)
[2017-03-12] MEDS: LOSARTAN 25 MG TAB PO SCH (08:20)
[2017-03-12] MEDS: NICOTINE 21 MG/24 HR PATCH T-DERMAL SCH (08:21)
[2017-03-12] MEDS: TICAGRELOR 90 MG TAB PO SCH ×2 (08:22→20:12)
[2017-03-12] MEDS: REMOVE OLD PATCH T-DERMAL SCH ×2 (08:22→08:32)
[2017-03-12] MEDS: SPIRONOLACTONE 25 MG TAB PO SCH (08:22)
--- NOTE | 2017-03-12 08:23 | HHI.PR ---
Subjective Remarks This is a pleasant 61 y/o male with Left foot cellulitis, CAD status post previous CABG, with recent NSTEMI 01/05/17 status post PCI and stent placement, Atrial fibrillation status post Ablation History of V tach, Hypertension, Severe left ventricular systolic dysfunction, Ischemic cardiomyopathy, COPD, Hypothyroidism, DM II, who was just recently discharged 02/06/17. came with discoloration of the left great toe, MRI of the foot was obtained at that time which showed soft tissue ulceration and no evidence of osteomyelitis. Chest x- ray shows some worsening of the left lower lobe infiltrate. Dr. Esparza was contacted while patient still in the ED and requested at CTA with runoff be ordered and he will see him in consultation. Patient was given vancomycin and Zosyn. followed by benefit specialist, the patient has PAD, recommended to continue Brilinta and Baby Aspirin to prevent stent thrombosis. Vascular academic records specialist following, the patient has Severe Stenosis of the distal iliac arteries and bilateral common femoral arteries, severe stenosis of the SFA Bilateral, Status post revascularization of the left leg with the common femoral endarterectomy patch and superficial femoral artery balloon angioplasty has severe distal trifurcation disease and the severe SFA vascular occlusive disease. 03/03/17, recommended Podiatry for Hallux amputation Scheduled for later today by Doctor Eid. he will need Carotid Endarterectomy, he has Total left sided occlusion and right sided hemodynamically significant stenosis. ID specialist following, with Diagnosis of Worsening sepsis, Leukocytosis over 20, worsening renal function, suspected LLL PNA, to continue Vancomycin Zosyn and Azithromycin for five days. 03/06: Seen in his bedroom in the presence of his Mrs. Vicki Ovalle, he will have amputation of the Left Hallux later today. 03/07: On Vancomycin and Zosyn, status post Left Hallux and first Metatarsal Head amputation POD#1, Azithromycin for 5 days. stable seen in his room his does not want any type of narcotic for her wants me to remove all narcotics from his chart, he has no complaint, will be transferred today out of the unit. 03/08: as per benefit specialist stays in Sinus rhythm, to continue Brilinta and Aspirin to prevent thrombosis, on Empirical antibiotics as per ID specialist awaiting pathology, suspected LLL Pneumonia, to continue Vancomycin, Zosyn. seen in his bedroom in the presence of nurse Mr. Xavier he wants to go home will need clearance by Specialists. 03/09: Seen in the presence of his , already clear for discharge by Podiatry specialist and Vascular surgery, awaiting final by ID specialist for discharge. 03/10: Patient stable in his bedroom in the presence of his and his Nurse Mr. Contreras, as per ID specialist with Diagnosis of Left Hallux wet gangrene with ascending cellulitis, status post amputation, no cultures available but as per history past culture positive for MSSA, pathology report for Gangrenous Necrosis and acute osteomyelitis, has DM II, Severe PAD, Suspected LLL PNA, discontinued vancomycin and Zosyn and started on Cefazolin, to be given 2 grams every 8 hours and follow as outpatient by PCP, Doctor Sanders and ID specialist. discussed with at this time she is a retired nurse and states she will support the [facility] nurse 03/11: Seen in his bedroom in the presence of his , he is sitting awaiting for arrangements to be done by Otorhinolaryngologist to go home on [facility]. 03/12: Stable waiting for [facility] for tomorrow, No nausea, vomit or diarrhea. Objective Vital Signs Date Time Temp Pulse Resp B/P (MAP) Pulse Ox O2 Delivery O2 Flow Rate FiO2 03/12/17 04:01 98.7 78 16 121/61 (81) 97 03/12/17 00:30 98.3 77 16 110/64 (79) 96 03/11/17 20:30 98.0 89 16 123/67 (85) 98 03/11/17 16:00 98.2 90 18 133/89 (104) 98 03/11/17 12:00 98.6 70 18 109/58 (75) 96 03/11/17 09:20 95 I/O 03/11/17 03/11/17 03/11/17 03/12/17 03/12/17 03/12/17 07:00 15:00 23:00 07:00 15:00 23:00 Intake Total 52 ml 360 ml Output Total 850 ml Balance 52 ml -490 ml Intake Oral 360 ml IV Total 52 ml Output Urine Total 850 ml # Voids 1 Result Diagram: 03/09/17 0943 03/08/17 0813 Imaging Last Impressions Chest X-Ray 03/10/17 0000 Signed Impressions: Service Date/Time: Saturday, March 10, 2017 09:13 - CONCLUSION: PICC line placement as above. Jase Sargent MD Foot X-Ray 03/06/17 0000 Signed Impressions: Service Date/Time: Monday, March 06, 2017 17:50 - CONCLUSION: Status post big toe amputation. Leandro Catalan MD Aorta w/Runoff CTA 02/27/17 0000 Signed Impressions: Service Date/Time: Monday, February 27, 2017 17:08 - CONCLUSION: 1. Severe atherosclerotic disease of the abdominal aorta and its major branches and within both lower extremities. There is a moderate to severe stenosis of the midportion of the superficial femoral artery bilaterally but no vessel occlusion is identified. 2. Moderate size left pleural effusion. Justus Martinez MD Procedures s/p revascularization of the left leg with the common femoral endarterectomy patch and superficial femoral artery balloon angioplasty Other Results Laboratory Tests Test 02/27/17 14:45 02/27/17 16:45 02/28/17 19:00 03/01/17 06:32 Lactic Acid Level 1.7 mmol/L Urine Color YELLOW Urine Turbidity CLEAR Urine pH 5.5 Urine Specific [place] 1.011 Urine Protein TRACE mg/dL Urine Glucose (UA) NEG mg/dL Urine Ketones NEG mg/dL Urine Occult Blood NEG Urine Nitrite NEG Urine Bilirubin NEG Urine Urobilinogen LESS THAN 2.0 MG/DL Urine Leukocyte Esterase NEG Microscopic Urinalysis Comment CATH-CULT NOT IND Iron Level 11 MCG/DL Total Iron Binding Capacity 294 MCG/DL Percent Iron Saturation 3.7 % Ferritin 145 NG/ML Triglycerides Level 80 MG/DL Cholesterol Level 86 MG/DL LDL Cholesterol 50 MG/DL HDL Cholesterol 19.9 MG/DL Cholesterol/HDL Ratio 4.32 RATIO Random Vancomycin Level 6.1 COMMENT Test 03/03/17 21:50 03/05/17 02:00 03/05/17 16:39 03/06/17 03:57 Blood Gas Puncture Site RT RADIAL Blood Gas Patient Temperature 98.6 Blood Gas HCO3 18 mmol/L Blood Gas Base Excess -5.0 mmol/L Blood Gas Oxygen Saturation 98 % Arterial Blood pH 7.48 Arterial Blood Partial Pressure CO2 25 mmHg Arterial Blood Partial Pressure O2 109 mmHg Arterial Blood Oxygen Content 13.4 Vol % Arterial Blood Carboxyhemoglobin 1.3 % Arterial Blood Methemoglobin 0.0 % Blood Gas Hemoglobin 9.7 G/DL Oxygen Delivery Device NASAL CANNULA Blood Gas Liter Flow 3 L/M Troponin I 0.12 NG/ML B-Type Natriuretic Peptide 1091 PG/ML Prothrombin Time 14.4 SEC Prothromb Time International Ratio 1.3 RATIO Activated Partial Thromboplast Time 32.2 SEC Vancomycin Level Trough 17.4 MCG/ML Blood Urea Nitrogen 22 MG/DL Creatinine 0.98 MG/DL Random Glucose 153 MG/DL Total Protein 7.0 GM/DL Albumin 2.1 GM/DL Calcium Level 8.6 MG/DL Phosphorus Level 3.1 MG/DL Magnesium Level 1.9 MG/DL Alkaline Phosphatase 66 U/L Aspartate Amino Transf (AST/SGOT) 26 U/L Alanine Aminotransferase (ALT/SGPT) 36 U/L Total Bilirubin 0.6 MG/DL Sodium Level 138 MEQ/L Potassium Level 4.0 MEQ/L Chloride Level 106 MEQ/L Carbon Dioxide Level 22.2 MEQ/L Anion Gap 10 MEQ/L Hemoglobin A1c 6.9 % Free Thyroxine 1.23 NG/DL Thyroid Stimulating Hormone 3rd Gen 2.880 uIU/ML Test 03/08/17 08:13 03/09/17 09:43 Creatinine 0.92 MG/DL Estimat Glomerular Filtration Rate 84 ML/MIN White Blood Count 14.3 TH/MM3 Red Blood Count 3.95 MIL/MM3 Hemoglobin 10.6 GM/DL Hematocrit 32.6 % Mean Corpuscular Volume 82.6 FL Mean Corpuscular Hemoglobin 26.9 PG Mean Corpuscular Hemoglobin Concent 32.6 % Red Cell Distribution Width 17.6 % Platelet Count 443 TH/MM3 Mean Platelet Volume 7.1 FL Neutrophils (%) (Auto) 83.3 % Lymphocytes (%) (Auto) 7.7 % Monocytes (%) (Auto) 6.4 % Eosinophils (%) (Auto) 2.0 % Basophils (%) (Auto) 0.6 % Neutrophils # (Auto) 11.9 TH/MM3 Lymphocytes # (Auto) 1.1 TH/MM3 Monocytes # (Auto) 0.9 TH/MM3 Eosinophils # (Auto) 0.3 TH/MM3 Basophils # (Auto) 0.1 TH/MM3 CBC Comment DIFF FINAL Differential Comment Objective Remarks GENERAL: Obesity, no acute distress. SKIN: Warm and dry. Left lower extremity is swollen and erythematous tenderness in foot also has the wound wound HEAD: Atraumatic. Normocephalic. NECK: Trachea midline. No JVD. Neck is supple CARDIOVASCULAR: Regular rate and rhythm. S1-S2 no S3 or S4 no heave or thrill or rub or gallop RESPIRATORY: No accessory muscle use. Clear to auscultation. Breath sounds equal bilaterally. GASTROINTESTINAL: Abdomen soft, non-tender, nondistended. Hepatic and splenic margins not palpable. Obese MUSCULOSKELETAL:. Left Foot dressed. NEUROLOGICAL: Awake and alert. No obvious cranial nerve deficits. PSYCHIATRIC: Appropriate mood and affect. Medications and IVs Current Medications Medications (Trade) Dose Ordered Sig/Hugo Route Start Time Stop Time Status Last Admin (Heparin Central Flush) See Protocol DAILY IV FLUSH 03/11/17 09:00 03/11/17 08:49 Cefazolin Sodium/ Dextrose 50 ml @ 100 mls/hr Q8H IV 03/10/17 17:00 03/12/17 00:48 (Tylenol) 650 mg Q4H PRN PO 03/10/17 16:30 03/10/17 22:39 (Albuterol Neb) 2.5 mg Q6HR NEB PRN NEB 03/10/17 16:30 (Aspirin Chew) 81 mg DAILY CHEW 03/11/17 09:00 03/11/17 08:41 (Lipitor) 80 mg DAILY PO 03/11/17 09:00 03/11/17 08:45 (Coreg) 6.25 mg Q12HR PO 03/10/17 21:00 03/11/17 22:22 (KlonoPIN) 0.5 mg Q12HR PRN PO 03/10/17 16:30 (Zetia) 10 mg DAILY PO 03/11/17 09:00 03/11/17 08:42 (Ferrous Sulfate) 325 mg BID PO 03/10/17 21:00 03/11/17 22:22 (Lasix) 40 mg DAILY PO 03/11/17 09:00 03/11/17 08:42 (Neurontin) 100 mg BID PO 03/10/17 21:00 03/11/17 22:22 (Heparin Inj) 5,000 units Q8HR SQ 03/10/17 22:00 03/12/17 05:37 (Levemir Inj) 10 units HS SQ 03/10/17 21:00 03/11/17 21:00 (Synthroid) 25 mcg DAILY@0600 PO 03/11/17 06:00 03/12/17 05:37 (Cozaar) 25 mg DAILY PO 03/11/17 09:00 03/11/17 08:41 (NovoLIN R SUPPLEMENTAL SCALE) 1 ACHS SLIDING SCALE SQ 03/10/17 21:00 03/11/17 21:00 (Habitrol 21 Mg Patch.24 Hr) 1 patch DAILY T-DERMAL 03/11/17 09:00 03/11/17 08:41 Miscellaneous Information 1 DAILY T-DERMAL 03/11/17 09:00 (SEROquel) 100 mg BID PO 03/10/17 21:00 03/11/17 22:23 (Aldactone) 25 mg DAILY PO 03/11/17 09:00 03/11/17 08:42 (Brilinta) 90 mg BID PO 03/10/17 21:00 03/11/17 22:23 (Effexor Xr) 75 mg DAILY PO 03/11/17 09:00 03/11/17 08:42 A/P Assessment and Plan ischemic left foot with gangrene of the left great toe s/p status post revascularization of the left leg with the common femoral endarterectomy patch and superficial femoral artery balloon angioplasty Status post left great toe amputation by Podiatry. Dr. Eid, stable redressed today by specialist and okay to discharge and follow in his office. sepsis due to Cellulitis/Diabetic foot ulcer Continue Vancomycin, Zosyn and Azithromycin. blood cultures negative in five days. talked to his and his Nurse Mr. Contreras, as per ID specialist with Diagnosis of Left Hallux wet gangrene with ascending cellulitis, status post amputation, no cultures available but as per history past culture positive for MSSA, pathology report for Gangrenous Necrosis and acute osteomyelitis, has DM II, Severe PAD, Suspected LLL PNA, discontinued vancomycin and Zosyn and started on Cefazolin, to be given 2 grams every 8 hours and follow as outpatient by PCP, Doctor Sanders and ID specialist. discussed with at this time she is a retired nurse and states she will support the [facility] nurse CAD with ischemic cardiomyopathy previous CABG recent NSTEMI status post cardiac catheterization stent implantation 12/23 History of V. tach History of atrial fibrillation status post ablation Hypertension Severe left ventricular systolic dysfunction continue aspirin 81mg and Brilinta 90mg BID, Lipitor 80mg Continue Coreg and Losartan continue Lasix and Aldactone cardiology following. acute kidney injury Improved. Type 2 DM Diabetic neuropathy Better control. Continue home medicines at discharge. Anemia s/p PRBC transfusion- H/H now improved- will monitor Continue patient on home dose of ferrous sulfate 325 mg by mouth twice a day Hypothyroidism Continue patient on home dose of levothyroxine 25 g daily Psychosis The patient is been as outpatient on Effexor and in house is on Seroquel, he is doing better now, but his asked about the need to come back on Effexor I will monitor his behavior and continue Seroquel is been well tolerated by the patient. Full code. DVT prophylaxis; subq Heparin Discussed with Patient His . all questions answered to the best of my abilities. Discharge Planning Awaiting for final arrangements to be performed by manager lean for discharge. may be for 03/13/17 Marques Dick MD Mar 12, 2017 08:23
[2017-03-12] MEDS: INSULIN DETEMIR 100 UNITS/ML VIAL SQ SCH (20:20)
[2017-03-13] MEDS: ceFAZolin 2 GM PREMIX 50 ML IV SCH ×3 (01:28→17:13)
[2017-03-13 03:23] VITALS: BP 105/53; PULSE 80; RESP 17; TEMP 98.6; O2SAT 95
[2017-03-13] MEDS: HEPARIN SODIUM - SQ 10,000 UNITS/ML VIAL SQ SCH ×3 (06:06→21:23)
[2017-03-13] MEDS: LEVOTHYROXINE SODIUM 25 MCG TAB PO SCH (06:06)
[2017-03-13] MEDS: INSULIN NovoLIN REGULAR SUPPLEMENTAL SCALE SQ SCH ×4 (06:08→21:43)
[2017-03-13 08:00] VITALS: BP 134/63; PULSE 85; RESP 20; TEMP 98; O2SAT 95
[2017-03-13] MEDS: VENLAFAXINE HCL XR 75 MG CAP PO SCH (08:13)
[2017-03-13] MEDS: ATORVASTATIN 80 MG TAB PO SCH (08:13)
[2017-03-13] MEDS: EZETIMIBE 10 MG TAB PO SCH (08:13)
[2017-03-13] MEDS: ASPIRIN 81 MG CHEW TAB CHEW SCH (08:13)
[2017-03-13] MEDS: CARVEDILOL 6.25 MG TAB PO SCH ×2 (08:14→21:23)
[2017-03-13] MEDS: LOSARTAN 25 MG TAB PO SCH (08:14)
[2017-03-13] MEDS: TICAGRELOR 90 MG TAB PO SCH ×2 (08:14→21:23)
[2017-03-13] MEDS: GABAPENTIN 100 MG CAP PO SCH ×2 (08:14→21:23)
[2017-03-13] MEDS: FERROUS SULFATE 325 MG (65 MG ELEMENTAL IRON) TAB PO SCH ×2 (08:14→21:23)
[2017-03-13] MEDS: FUROSEMIDE 40 MG TAB PO SCH (08:14)
[2017-03-13] MEDS: QUEtiapine FUMARATE 100 MG TAB PO SCH ×2 (08:14→21:23)
[2017-03-13] MEDS: SPIRONOLACTONE 25 MG TAB PO SCH (08:14)
[2017-03-13] MEDS: NICOTINE 21 MG/24 HR PATCH T-DERMAL SCH (08:15)
--- NOTE | 2017-03-13 08:58 | HHI.PR ---
Subjective Remarks This is a pleasant 61 y/o male with Left foot cellulitis, CAD status post previous CABG, with recent NSTEMI 01/05/17 status post PCI and stent placement, Atrial fibrillation status post Ablation History of V tach, Hypertension, Severe left ventricular systolic dysfunction, Ischemic cardiomyopathy, COPD, Hypothyroidism, DM II, who was just recently discharged 02/06/17. came with discoloration of the left great toe, MRI of the foot was obtained at that time which showed soft tissue ulceration and no evidence of osteomyelitis. Chest x- ray shows some worsening of the left lower lobe infiltrate. Dr. Esparza was contacted while patient still in the ED and requested at CTA with runoff be ordered and he will see him in consultation. Patient was given vancomycin and Zosyn. followed by cash control specialist, the patient has PAD, recommended to continue Brilinta and Baby Aspirin to prevent stent thrombosis. Vascular demo event specialist following, the patient has Severe Stenosis of the distal iliac arteries and bilateral common femoral arteries, severe stenosis of the SFA Bilateral, Status post revascularization of the left leg with the common femoral endarterectomy patch and superficial femoral artery balloon angioplasty has severe distal trifurcation disease and the severe SFA vascular occlusive disease. 03/03/17, recommended Podiatry for Hallux amputation Scheduled for later today by Doctor Eid. he will need Carotid Endarterectomy, he has Total left sided occlusion and right sided hemodynamically significant stenosis. ID specialist following, with Diagnosis of Worsening sepsis, Leukocytosis over 20, worsening renal function, suspected LLL PNA, to continue Vancomycin Zosyn and Azithromycin for five days. 03/06: Seen in his bedroom in the presence of his Mrs. Vicki Ovalle, he will have amputation of the Left Hallux later today. 03/07: On Vancomycin and Zosyn, status post Left Hallux and first Metatarsal Head amputation POD#1, Azithromycin for 5 days. stable seen in his room his does not want any type of narcotic for her wants me to remove all narcotics from his chart, he has no complaint, will be transferred today out of the unit. 03/08: as per cash control specialist stays in Sinus rhythm, to continue Brilinta and Aspirin to prevent thrombosis, on Empirical antibiotics as per ID specialist awaiting pathology, suspected LLL Pneumonia, to continue Vancomycin, Zosyn. seen in his bedroom in the presence of nurse Mr. Xavier he wants to go home will need clearance by Specialists. 03/09: Seen in the presence of his , already clear for discharge by Podiatry specialist and Vascular surgery, awaiting final by ID specialist for discharge. 03/10: Patient stable in his bedroom in the presence of his and his Nurse Mr. Contreras, as per ID specialist with Diagnosis of Left Hallux wet gangrene with ascending cellulitis, status post amputation, no cultures available but as per history past culture positive for MSSA, pathology report for Gangrenous Necrosis and acute osteomyelitis, has DM II, Severe PAD, Suspected LLL PNA, discontinued vancomycin and Zosyn and started on Cefazolin, to be given 2 grams every 8 hours and follow as outpatient by PCP, Doctor Sanders and ID specialist. discussed with at this time she is a retired nurse and states she will support the C nurse 03/11: Seen in his bedroom in the presence of his , he is sitting awaiting for arrangements to be done by Anesthesiology Resident to go home on HHC. 03/12: Stable waiting for HHC for tomorrow. 03/13: Today discussed with apartment assistant manager arranged for HHC and awaiting from pharmacy but the patient will leave home today. seen in his bedroom in the presence of his , he asked for some Zofran due to that he was nauseated, vital signs within normal limits Objective Vital Signs Date Time Temp Pulse Resp B/P (MAP) Pulse Ox O2 Delivery O2 Flow Rate FiO2 03/13/17 08:00 98.0 85 20 134/63 (86) 95 03/13/17 03:23 98.6 80 17 105/53 (70) 95 03/12/17 23:17 98.1 76 17 114/65 (81) 96 03/12/17 21:00 98.0 84 15 138/71 (93) 97 03/12/17 16:10 98.4 89 18 118/61 (80) 97 03/12/17 12:15 97.6 102 18 117/58 (77) 96 03/12/17 09:07 81 I/O 03/12/17 03/12/17 03/12/17 03/13/17 03/13/17 03/13/17 06:59 14:59 22:59 06:59 14:59 22:59 Intake Total 360 ml 480 ml 50 ml 50 ml Output Total 850 ml Balance -490 ml 480 ml 50 ml 50 ml Intake Oral 360 ml 480 ml IV Total 50 ml 50 ml Output Urine Total 850 ml # Voids 1 2 # Bowel Movements 1 Result Diagram: 03/09/17 0943 Imaging Last Impressions Chest X-Ray 03/10/17 0000 Signed Impressions: Service Date/Time: Friday, March 10, 2017 09:13 - CONCLUSION: PICC line placement as above. Jase Sargent MD Foot X-Ray 03/06/17 0000 Signed Impressions: Service Date/Time: Monday, March 06, 2017 17:50 - CONCLUSION: Status post big toe amputation. Leandro Catalan MD Aorta w/Runoff CTA 02/27/17 0000 Signed Impressions: Service Date/Time: Monday, February 27, 2017 17:08 - CONCLUSION: 1. Severe atherosclerotic disease of the abdominal aorta and its major branches and within both lower extremities. There is a moderate to severe stenosis of the midportion of the superficial femoral artery bilaterally but no vessel occlusion is identified. 2. Moderate size left pleural effusion. Justus Martinez MD Procedures s/p revascularization of the left leg with the common femoral endarterectomy patch and superficial femoral artery balloon angioplasty Other Results Laboratory Tests Test 02/27/17 14:45 02/27/17 16:45 02/28/17 19:00 03/01/17 06:32 Lactic Acid Level 1.7 mmol/L Urine Color YELLOW Urine Turbidity CLEAR Urine pH 5.5 Urine Specific [place] 1.011 Urine Protein TRACE mg/dL Urine Glucose (UA) NEG mg/dL Urine Ketones NEG mg/dL Urine Occult Blood NEG Urine Nitrite NEG Urine Bilirubin NEG Urine Urobilinogen LESS THAN 2.0 MG/DL Urine Leukocyte Esterase NEG Microscopic Urinalysis Comment CATH-CULT NOT IND Iron Level 11 MCG/DL Total Iron Binding Capacity 294 MCG/DL Percent Iron Saturation 3.7 % Ferritin 145 NG/ML Triglycerides Level 80 MG/DL Cholesterol Level 86 MG/DL LDL Cholesterol 50 MG/DL HDL Cholesterol 19.9 MG/DL Cholesterol/HDL Ratio 4.32 RATIO Random Vancomycin Level 6.1 COMMENT Test 03/03/17 21:50 03/05/17 02:00 03/05/17 16:39 03/06/17 03:57 Blood Gas Puncture Site RT RADIAL Blood Gas Patient Temperature 98.6 Blood Gas HCO3 18 mmol/L Blood Gas Base Excess -5.0 mmol/L Blood Gas Oxygen Saturation 98 % Arterial Blood pH 7.48 Arterial Blood Partial Pressure CO2 25 mmHg Arterial Blood Partial Pressure O2 109 mmHg Arterial Blood Oxygen Content 13.4 Vol % Arterial Blood Carboxyhemoglobin 1.3 % Arterial Blood Methemoglobin 0.0 % Blood Gas Hemoglobin 9.7 G/DL Oxygen Delivery Device NASAL CANNULA Blood Gas Liter Flow 3 L/M Troponin I 0.12 NG/ML B-Type Natriuretic Peptide 1091 PG/ML Prothrombin Time 14.4 SEC Prothromb Time International Ratio 1.3 RATIO Activated Partial Thromboplast Time 32.2 SEC Vancomycin Level Trough 17.4 MCG/ML Blood Urea Nitrogen 22 MG/DL Creatinine 0.98 MG/DL Random Glucose 153 MG/DL Total Protein 7.0 GM/DL Albumin 2.1 GM/DL Calcium Level 8.6 MG/DL Phosphorus Level 3.1 MG/DL Magnesium Level 1.9 MG/DL Alkaline Phosphatase 66 U/L Aspartate Amino Transf (AST/SGOT) 26 U/L Alanine Aminotransferase (ALT/SGPT) 36 U/L Total Bilirubin 0.6 MG/DL Sodium Level 138 MEQ/L Potassium Level 4.0 MEQ/L Chloride Level 106 MEQ/L Carbon Dioxide Level 22.2 MEQ/L Anion Gap 10 MEQ/L Hemoglobin A1c 6.9 % Free Thyroxine 1.23 NG/DL Thyroid Stimulating Hormone 3rd Gen 2.880 uIU/ML Test 03/08/17 08:13 03/09/17 09:43 Creatinine 0.92 MG/DL Estimat Glomerular Filtration Rate 84 ML/MIN White Blood Count 14.3 TH/MM3 Red Blood Count 3.95 MIL/MM3 Hemoglobin 10.6 GM/DL Hematocrit 32.6 % Mean Corpuscular Volume 82.6 FL Mean Corpuscular Hemoglobin 26.9 PG Mean Corpuscular Hemoglobin Concent 32.6 % Red Cell Distribution Width 17.6 % Platelet Count 443 TH/MM3 Mean Platelet Volume 7.1 FL Neutrophils (%) (Auto) 83.3 % Lymphocytes (%) (Auto) 7.7 % Monocytes (%) (Auto) 6.4 % Eosinophils (%) (Auto) 2.0 % Basophils (%) (Auto) 0.6 % Neutrophils # (Auto) 11.9 TH/MM3 Lymphocytes # (Auto) 1.1 TH/MM3 Monocytes # (Auto) 0.9 TH/MM3 Eosinophils # (Auto) 0.3 TH/MM3 Basophils # (Auto) 0.1 TH/MM3 CBC Comment DIFF FINAL Differential Comment Objective Remarks GENERAL: Obesity, no acute distress. SKIN: Warm and dry. Left lower extremity is swollen and erythematous tenderness in foot also has the wound wound HEAD: Atraumatic. Normocephalic. NECK: Trachea midline. No JVD. Neck is supple CARDIOVASCULAR: Regular rate and rhythm. S1-S2 no S3 or S4 no heave or thrill or rub or gallop RESPIRATORY: No accessory muscle use. Clear to auscultation. Breath sounds equal bilaterally. GASTROINTESTINAL: Abdomen soft, non-tender, nondistended. Hepatic and splenic margins not palpable. Obese MUSCULOSKELETAL:. Left Foot dressed. NEUROLOGICAL: Awake and alert. No obvious cranial nerve deficits. PSYCHIATRIC: Appropriate mood and affect. Medications and IVs Current Medications Medications (Trade) Dose Ordered Sig/Hugo Route Start Time Stop Time Status Last Admin (Heparin Central Flush) See Protocol DAILY IV FLUSH 03/11/17 09:00 03/13/17 08:15 Cefazolin Sodium/ Dextrose 50 ml @ 100 mls/hr Q8H IV 03/10/17 17:00 03/13/17 08:20 (Tylenol) 650 mg Q4H PRN PO 03/10/17 16:30 03/10/17 22:39 (Albuterol Neb) 2.5 mg Q6HR NEB PRN NEB 03/10/17 16:30 (Aspirin Chew) 81 mg DAILY CHEW 03/11/17 09:00 03/13/17 08:13 (Lipitor) 80 mg DAILY PO 03/11/17 09:00 03/13/17 08:13 (Coreg) 6.25 mg Q12HR PO 03/10/17 21:00 03/13/17 08:14 (KlonoPIN) 0.5 mg Q12HR PRN PO 03/10/17 16:30 (Zetia) 10 mg DAILY PO 03/11/17 09:00 03/13/17 08:13 (Ferrous Sulfate) 325 mg BID PO 03/10/17 21:00 03/13/17 08:14 (Lasix) 40 mg DAILY PO 03/11/17 09:00 03/13/17 08:14 (Neurontin) 100 mg BID PO 03/10/17 21:00 03/13/17 08:14 (Heparin Inj) 5,000 units Q8HR SQ 03/10/17 22:00 03/13/17 06:06 (Levemir Inj) 10 units HS SQ 03/10/17 21:00 03/12/17 20:20 (Synthroid) 25 mcg DAILY@0600 PO 03/11/17 06:00 03/13/17 06:06 (Cozaar) 25 mg DAILY PO 03/11/17 09:00 03/13/17 08:14 (NovoLIN R SUPPLEMENTAL SCALE) 1 ACHS SLIDING SCALE SQ 03/10/17 21:00 03/12/17 20:19 (Habitrol 21 Mg Patch.24 Hr) 1 patch DAILY T-DERMAL 03/11/17 09:00 03/13/17 08:15 Miscellaneous Information 1 DAILY T-DERMAL 03/11/17 09:00 03/12/17 08:32 (SEROquel) 100 mg BID PO 03/10/17 21:00 03/13/17 08:14 (Aldactone) 25 mg DAILY PO 03/11/17 09:00 03/13/17 08:14 (Brilinta) 90 mg BID PO 03/10/17 21:00 03/13/17 08:14 (Effexor Xr) 75 mg DAILY PO 03/11/17 09:00 03/13/17 08:13 A/P Assessment and Plan ischemic left foot with gangrene of the left great toe s/p status post revascularization of the left leg with the common femoral endarterectomy patch and superficial femoral artery balloon angioplasty Status post left great toe amputation by Podiatry. Dr. Eid, stable redressed today by specialist and okay to discharge and follow in his office. sepsis due to Cellulitis/Diabetic foot ulcer Continue Vancomycin, Zosyn and Azithromycin. blood cultures negative in five days. talked to his and his Nurse Mr. Contreras, as per ID specialist with Diagnosis of Left Hallux wet gangrene with ascending cellulitis, status post amputation, no cultures available but as per history past culture positive for MSSA, pathology report for Gangrenous Necrosis and acute osteomyelitis, has DM II, Severe PAD, Suspected LLL PNA, discontinued vancomycin and Zosyn and started on Cefazolin, to be given 2 grams every 8 hours and follow as outpatient by PCP, Doctor Marilyn and ID specialist. discussed with at this time she is a retired nurse and states she will support the [facility] nurse CAD with ischemic cardiomyopathy previous CABG recent NSTEMI status post cardiac catheterization stent implantation 12/23 History of V. tach History of atrial fibrillation status post ablation Hypertension Severe left ventricular systolic dysfunction continue aspirin 81mg and Brilinta 90mg BID, Lipitor 80mg Continue Coreg and Losartan continue Lasix and Aldactone cardiology following. acute kidney injury Improved. Type 2 DM Diabetic neuropathy Better control. Continue home medicines at discharge. Anemia s/p PRBC transfusion- H/H now improved- will monitor Continue patient on home dose of ferrous sulfate 325 mg by mouth twice a day Hypothyroidism Continue patient on home dose of levothyroxine 25 g daily Psychosis The patient is been as outpatient on Effexor and in house is on Seroquel, he is doing better now, but his asked about the need to come back on Effexor I will monitor his behavior and continue Seroquel is been well tolerated by the patient. Full code. DVT prophylaxis; subq Heparin Discussed with Patient His . all questions answered to the best of my abilities. Discharge Planning Discharge today to Home with [facility]. Marques Dick MD Mar 13, 2017 08:58
[2017-03-13] MEDS: REMOVE OLD PATCH T-DERMAL SCH (09:00)
[2017-03-13] MEDS ORDERED: ZOFR4TAB PO (10:22)
[2017-03-13] MEDS ORDERED: ONDANSETRON HCL 4 MG/2 ML VIAL IV PUSH PRN (11:30)
[2017-03-13 11:48] VITALS: BP 119/56; PULSE 80; RESP 20; TEMP 97.3; O2SAT 98
--- NOTE | 2017-03-13 15:40 | HHI.DS ---
Discharge Summary Admission Date Feb 27, 2017 at 16:16 Discharge Date: Mar 13, 2017 Admitting Diagnosis ISCHEMIC L GREAT TOE; L FOOT CELLULITIS/ULCER FAILED OUTPT TX (1) CAD (coronary artery disease) ICD Code: I25.10 - Atherosclerotic heart disease of [place] coronary artery without angina pectoris Diagnosis: Secondary (2) CHF (congestive heart failure) ICD Code: I50.9 - Heart failure, unspecified Diagnosis: Secondary Status: Chronic (3) Hyperlipidemia ICD Code: E78.5 - Hyperlipidemia, unspecified Diagnosis: Secondary Status: Chronic (4) PVD (peripheral vascular disease) ICD Code: I73.9 - Peripheral vascular disease, unspecified Diagnosis: Principal (5) Diabetes mellitus ICD Code: E11.9 - Type 2 diabetes mellitus without complications Diagnosis: Principal Status: Chronic (6) Ischemic pain of left foot ICD Code: M79.672 - Pain in left foot; I99.9 - Unspecified disorder of circulatory system Diagnosis: Principal Status: Acute (7) Diabetic foot ulcer ICD Code: E11.621 - Type 2 diabetes mellitus with foot ulcer; L97.509 - Non- pressure chronic ulcer of other part of unspecified foot with unspecified severity Diagnosis: Principal Status: Chronic (8) Left foot infection ICD Code: L08.9 - Local infection of the skin and subcutaneous tissue, unspecified Diagnosis: Principal Status: Acute (9) Hypothyroidism ICD Code: E03.9 - Hypothyroidism, unspecified Diagnosis: Secondary Status: Chronic Procedures s/p revascularization of the left leg with the common femoral endarterectomy patch and superficial femoral artery balloon angioplasty Brief History - From Admission Written by Love Lopez PA-C acting as scribe for Dr. Shea on 02/27/17 at 16:42. This is a 61 yo male with a PMHX of Cellulitis left foot, CAD s/p previous CABG with recent NSTEMI 01/05/17, Atrial fibrillation s/p previous ablation, Hx of Vtach, Severe left ventricular systolic dysfunction, Ischemic cardiomyopathy, HTN, DM, COPD, hypothyroidism and dyslipidemia who presents to [facility] ED with complaints of increasing pain and discoloration of the left great toe. Patient was just recently admitted 02/22/17 with sepsis due to left foot infection. MRI of the foot was obtained at that time which showed soft tissue ulceration and no evidence of osteomyelitis. Patient was seen in consultation by Dr. Eid. Patient was treated with several of IV antibiotics followed by continuation of oral Cipro and clindamycin following discharge. Patient states he's been compliant with his medications and has taken them as prescribed including today. Patient states yesterday he noticed that the left great toe started turning purple with increasing pain. This worsened over the last 24 hours. He also reports drainage from the wound on the bottom of the foot. He contacted Dr. Weber's office and was told he was on vacation and was recommended to come into the ED for further evaluation and treatment. Patient denies any fever or chills at home. He states his blood sugars at home are fairly well-controlled and return in the 100s. He does admit that he occasionally has higher readings in the 300s. Patient seen in the ED. He reports his pain level is 4/10 presently. He has leukocytosis with a white count of 18.1. Heart rate is normal and he is afebrile. Lactic acid is 1.7. Na level is 127. X-ray shows soft tissue ulcer with subcutaneous emphysema with no evidence of osteomyelitis. Chest x-ray shows some worsening of the left lower lobe infiltrate. Dr. Esparza was contacted while patient still in the ED and requested at CTA with runoff be ordered and he will see him in consultation. Patient was given vancomycin and Zosyn. CBC/BMP: 03/09/17 0943 Imaging Last Impressions Chest X-Ray 03/10/17 0000 Signed Impressions: Service Date/Time: Friday, March 10, 2017 09:13 - CONCLUSION: PICC line placement as above. Jase Sargent MD Foot X-Ray 03/06/17 0000 Signed Impressions: Service Date/Time: Monday, March 06, 2017 17:50 - CONCLUSION: Status post big toe amputation. Leandro Catalan MD Aorta w/Runoff CTA 02/27/17 0000 Signed Impressions: Service Date/Time: Monday, February 27, 2017 17:08 - CONCLUSION: 1. Severe atherosclerotic disease of the abdominal aorta and its major branches and within both lower extremities. There is a moderate to severe stenosis of the midportion of the superficial femoral artery bilaterally but no vessel occlusion is identified. 2. Moderate size left pleural effusion. Justus Martinez MD PE at Discharge GENERAL: Obesity, no acute distress. SKIN: Warm and dry. Left lower extremity is swollen and erythematous tenderness in foot also has the wound wound HEAD: Atraumatic. Normocephalic. NECK: Trachea midline. No JVD. Neck is supple CARDIOVASCULAR: Regular rate and rhythm. S1-S2 no S3 or S4 no heave or thrill or rub or gallop RESPIRATORY: No accessory muscle use. Clear to auscultation. Breath sounds equal bilaterally. GASTROINTESTINAL: Abdomen soft, non-tender, nondistended. Hepatic and splenic margins not palpable. Obese MUSCULOSKELETAL:. Left Foot dressed. NEUROLOGICAL: Awake and alert. No obvious cranial nerve deficits. PSYCHIATRIC: Appropriate mood and affect. Hospital Course This is a pleasant 61 y/o male with Left foot cellulitis, CAD status post previous CABG, with recent NSTEMI 01/05/17 status post PCI and stent placement, Atrial fibrillation status post Ablation History of V tach, Hypertension, Severe left ventricular systolic dysfunction, Ischemic cardiomyopathy, COPD, Hypothyroidism, DM II, who was just recently discharged 02/06/17. came with discoloration of the left great toe, MRI of the foot was obtained at that time which showed soft tissue ulceration and no evidence of osteomyelitis. Chest x- ray shows some worsening of the left lower lobe infiltrate. Dr. Esparza was contacted while patient still in the ED and requested at CTA with runoff be ordered and he will see him in consultation. Patient was given vancomycin and Zosyn. followed by diesel engine specialist, the patient has PAD, recommended to continue Brilinta and Baby Aspirin to prevent stent thrombosis. Vascular end user support specialist following, the patient has Severe Stenosis of the distal iliac arteries and bilateral common femoral arteries, severe stenosis of the SFA Bilateral, Status post revascularization of the left leg with the common femoral endarterectomy patch and superficial femoral artery balloon angioplasty has severe distal trifurcation disease and the severe SFA vascular occlusive disease. 03/03/17, recommended Podiatry for Hallux amputation Scheduled for later today by Doctor Eid. he will need Carotid Endarterectomy, he has Total left sided occlusion and right sided hemodynamically significant stenosis. ID specialist following, with Diagnosis of Worsening sepsis, Leukocytosis over 20, worsening renal function, suspected LLL PNA, to continue Vancomycin Zosyn and Azithromycin for five days. 03/06: Seen in his bedroom in the presence of his Mrs. Vicki Ovalle, he will have amputation of the Left Hallux later today. 03/07: On Vancomycin and Zosyn, status post Left Hallux and first Metatarsal Head amputation POD#1, Azithromycin for 5 days. stable seen in his room his does not want any type of narcotic for her wants me to remove all narcotics from his chart, he has no complaint, will be transferred today out of the unit. 03/08: as per diesel engine specialist stays in Sinus rhythm, to continue Brilinta and Aspirin to prevent thrombosis, on Empirical antibiotics as per ID specialist awaiting pathology, suspected LLL Pneumonia, to continue Vancomycin, Zosyn. seen in his bedroom in the presence of nurse Mr. Park he wants to go home will need clearance by Specialists. 03/09: Seen in the presence of his , already clear for discharge by Podiatry specialist and Vascular surgery, awaiting final by ID specialist for discharge. 03/10: Patient stable in his bedroom in the presence of his and his Nurse Mr. Contreras, as per ID specialist with Diagnosis of Left Hallux wet gangrene with ascending cellulitis, status post amputation, no cultures available but as per history past culture positive for MSSA, pathology report for Gangrenous Necrosis and acute osteomyelitis, has DM II, Severe PAD, Suspected LLL PNA, discontinued vancomycin and Zosyn and started on Cefazolin, to be given 2 grams every 8 hours and follow as outpatient by PCP, Doctor Sanders and ID specialist. discussed with at this time she is a retired nurse and states she will support the [facility] nurse 03/11: Seen in his bedroom in the presence of his , he is sitting awaiting for arrangements to be done by Engineering And Operations Director to go home on [facility]. 03/12: Stable waiting for [facility] for tomorrow. 03/13: Today discussed with bowling floor manager arranged for [facility] and awaiting from pharmacy but the patient will leave home today. seen in his bedroom in the presence of his , he asked for some Zofran due to that he was nauseated, vital signs within normal limits Assessment and Plan ischemic left foot with gangrene of the left great toe s/p status post revascularization of the left leg with the common femoral endarterectomy patch and superficial femoral artery balloon angioplasty Status post left great toe amputation by Podiatry. Dr. Eid, stable redressed today by specialist and okay to discharge and follow in his office. sepsis due to Cellulitis/Diabetic foot ulcer Continue Vancomycin, Zosyn and Azithromycin. blood cultures negative in five days. talked to his and his Nurse Mr. Contreras, as per ID specialist with Diagnosis of Left Hallux wet gangrene with ascending cellulitis, status post amputation, no cultures available but as per history past culture positive for MSSA, pathology report for Gangrenous Necrosis and acute osteomyelitis, has DM II, Severe PAD, Suspected LLL PNA, discontinued vancomycin and Zosyn and started on Cefazolin, to be given 2 grams every 8 hours and follow as outpatient by PCP, Doctor Sanders and ID specialist. discussed with at this time she is a retired nurse and states she will support the [facility] nurse CAD with ischemic cardiomyopathy previous CABG recent NSTEMI status post cardiac catheterization stent implantation 12/23 History of V. tach History of atrial fibrillation status post ablation Hypertension Severe left ventricular systolic dysfunction continue aspirin 81mg and Brilinta 90mg BID, Lipitor 80mg Continue Coreg and Losartan continue Lasix and Aldactone cardiology following. acute kidney injury Improved. Type 2 DM Diabetic neuropathy Better control. Continue home medicines at discharge. Anemia s/p PRBC transfusion- H/H now improved- will monitor Continue patient on home dose of ferrous sulfate 325 mg by mouth twice a day Hypothyroidism Continue patient on home dose of levothyroxine 25 g daily Psychosis The patient is been as outpatient on Effexor and in house is on Seroquel, he is doing better now, but his asked about the need to come back on Effexor I will monitor his behavior and continue Seroquel is been well tolerated by the patient. Full code. DVT prophylaxis; subq Heparin Discussed with Patient His . all questions answered to the best of my abilities. Discharge Planning Discharge today to Home with [facility]. Pt Condition on Discharge: Good Discharge Disposition: Disch w/ Home Health Serv Discharge Time: > 30 minutes Discharge Instructions DIET: Follow Instructions for: Heart Healthy Diet, Diabetic Diet Activities you can perform: See Additionl Instruction Other Activity Instructions: Follow instructions given by Podiatry specialist and PT at discharge. Marques Dick MD Mar 13, 2017 15:40
[2017-03-13 16:11] VITALS: BP 124/58; PULSE 83; RESP 20; TEMP 97.6; O2SAT 97
[2017-03-13 20:30] VITALS: BP 124/71; PULSE 80; RESP 17; TEMP 97.6; O2SAT 96
[2017-03-13] MEDS: INSULIN DETEMIR 100 UNITS/ML VIAL SQ SCH (21:41)
[2017-03-14 00:30] VITALS: BP 109/56; PULSE 67; RESP 17; TEMP 98.4; O2SAT 96
[2017-03-14] MEDS: ceFAZolin 2 GM PREMIX 50 ML IV SCH ×2 (01:29→08:53)
[2017-03-14 04:30] VITALS: BP 114/58; PULSE 73; RESP 16; TEMP 98.4; O2SAT 98
[2017-03-14] MEDS: LEVOTHYROXINE SODIUM 25 MCG TAB PO SCH (06:01)
[2017-03-14] MEDS: HEPARIN SODIUM - SQ 10,000 UNITS/ML VIAL SQ SCH (06:01)
[2017-03-14] MEDS: INSULIN NovoLIN REGULAR SUPPLEMENTAL SCALE SQ SCH ×2 (06:01→11:00)
[2017-03-14] MEDS: SPIRONOLACTONE 25 MG TAB PO SCH (08:50)
[2017-03-14] MEDS: LOSARTAN 25 MG TAB PO SCH (08:50)
[2017-03-14] MEDS: VENLAFAXINE HCL XR 75 MG CAP PO SCH (08:50)
[2017-03-14] MEDS: FUROSEMIDE 40 MG TAB PO SCH (08:50)
[2017-03-14] MEDS: EZETIMIBE 10 MG TAB PO SCH (08:50)
[2017-03-14] MEDS: ATORVASTATIN 80 MG TAB PO SCH (08:50)
[2017-03-14] MEDS: TICAGRELOR 90 MG TAB PO SCH (08:50)
[2017-03-14] MEDS: CARVEDILOL 6.25 MG TAB PO SCH (08:51)
[2017-03-14] MEDS: ASPIRIN 81 MG CHEW TAB CHEW SCH (08:51)
[2017-03-14] MEDS: FERROUS SULFATE 325 MG (65 MG ELEMENTAL IRON) TAB PO SCH (08:51)
[2017-03-14] MEDS: QUEtiapine FUMARATE 100 MG TAB PO SCH (08:51)
[2017-03-14] MEDS: GABAPENTIN 100 MG CAP PO SCH (08:51)
[2017-03-14 09:06] VITALS: BP 125/62; PULSE 73; RESP 18; TEMP 97.9; O2SAT 97
[2017-03-14 12:48] VITALS: BP 105/59; PULSE 76; RESP 18; TEMP 97.7; O2SAT 98
[2017-03-14 15:06] VITALS: BP 133/61; PULSE 79; RESP 18; TEMP 97.3; O2SAT 98
[2017-03-29] MEDS ORDERED: LEVA500T20 PO (10:21)
[2017-04-12] MEDS ORDERED: VANC1INJ2 IV (10:22)
[2017-04-19] MEDS ORDERED: CIPR-9 PO (09:49)
== END 2017-03-14 15:36 | disposition home health service (06) | DRG 239 ==
LOC: NEPE 12:18 → NEDA 16:16 → N07A 19:57 → N03B 03-02 15:44 → N03A 03-04 19:15 → N05B 03-07 14:40 → UNDODISIN 03-10 11:40 → N05B 03-10 16:10
PROVIDERS: ADMIT Internal Medicine; ATTEND Internal Medicine
PROC: 30233N1 Transfusion of Nonautologous Red Blood Cells into Peripheral Vein, Percutaneous Approach (ICD-10-PCS; 2017-02-28)
PROC: 04CL0ZZ Extirpation of Matter from Left Femoral Artery, Open Approach (ICD-10-PCS; 2017-03-02)
PROC: 04UL0KZ Supplement Left Femoral Artery with Nonautologous Tissue Substitute, Open Approach (ICD-10-PCS; 2017-03-02)
PROC: 047L3ZZ Dilation of Left Femoral Artery, Percutaneous Approach (ICD-10-PCS; 2017-03-02 11:04)
PROC: 0Y6Q0Z0 Detachment at Left 1st Toe, Complete, Open Approach (ICD-10-PCS; 2017-03-06)
PROC: 0Y6N0Z9 Detachment at Left Foot, Partial 1st Ray, Open Approach (ICD-10-PCS; principal; 2017-03-06 16:17)
DX: E11.52 Type 2 diabetes mellitus with diabetic peripheral angiopathy with gangrene (principal); J18.9 Pneumonia, unspecified organism; A41.9 Sepsis, unspecified organism; I47.2 Ventricular tachycardia; N17.9 Acute kidney failure, unspecified; L03.116 Cellulitis of left lower limb; E87.1 Hypo-osmolality and hyponatremia; E11.22 Type 2 diabetes mellitus with diabetic chronic kidney disease; I50.9 Heart failure, unspecified; J44.0 Chronic obstructive pulmonary disease with (acute) lower respiratory infection; M86.172 Other acute osteomyelitis, left ankle and foot; E11.40 Type 2 diabetes mellitus with diabetic neuropathy, unspecified; E11.621 Type 2 diabetes mellitus with foot ulcer; L97.529 Non-pressure chronic ulcer of other part of left foot with unspecified severity; E11.69 Type 2 diabetes mellitus with other specified complication; I25.10 Atherosclerotic heart disease of native coronary artery without angina pectoris; Z95.1 Presence of aortocoronary bypass graft; Z95.5 Presence of coronary angioplasty implant and graft; I25.2 Old myocardial infarction; I25.5 Ischemic cardiomyopathy; E78.5 Hyperlipidemia, unspecified; D64.9 Anemia, unspecified; E03.9 Hypothyroidism, unspecified; F17.210 Nicotine dependence, cigarettes, uncomplicated; K21.9 Gastro-esophageal reflux disease without esophagitis; Z79.02 Long term (current) use of antithrombotics/antiplatelets; Z79.82 Long term (current) use of aspirin; Z79.84 Long term (current) use of oral hypoglycemic drugs; F29 Unspecified psychosis not due to a substance or known physiological condition; Z95.810 Presence of automatic (implantable) cardiac defibrillator; E66.9 Obesity, unspecified; Z68.33 Body mass index [BMI] 33.0-33.9, adult; Z87.01 Personal history of pneumonia (recurrent)
CPT/HCPCS: 36430; 36569; 36600; 71010; 73630; 75635; 75710; 76937; 80048; 80053; 80061; 80202; 81001; 82565; 82728; 82805; 82948; 83036; 83540; 83550; 83605; 83735; 83880; 84100; 84439; 84443; 84484; 85014; 85018; 85025; 85610; 85730; 86850; 86900; 86901; 86920; 87040; 87070; 87205; 88304; 88305; 88311; 93005; 93306; 94640; 94664; 96365; 96375; C1725; C1757; C1768; C1769; J0131; J0690; J1170; J1630; J1642; J1644; J1815; J1940; J2250; J2270; J2370; J2405; J2543; J3010; J3370; J3480; J7040; J7050; J7120; J7613; L3260; P9016

== ENCOUNTER 2017-03-16 09:01 | Emergency (ER) | payer MEDICARE ==
[~2017-03-16] VITALS: Ht 177.8 cm; Wt 125.1 kg
[~2017-03-16 09:01] MED LIST changes: +CEFA2SOL IV; -CIPR500T2 PO; -CLIN1CAP6 PO; +EPIN1INJ21 IV PUSH; +EPIN1INJ21 SQ; +NICO21DI25 T-DERMAL; +QUET1TAB8 PO; +SOLU250I IV PUSH; +ZOFR4TAB PO
[2017-03-16 09:08] VITALS: BP 136/75; PULSE 91; RESP 18; TEMP 97.6; O2SAT 97
[2017-03-16] MEDS ORDERED: SODIUM CHLOR 0.9% 1000 ML INJ 1,000 ML IV SCH (09:30)
[2017-03-16] MEDS ORDERED: HYDROmorphone HCL PF 1 MG/ML VIAL IV PUSH ONE ×2 (09:30→11:45)
[2017-03-16] MEDS ORDERED: ONDANSETRON HCL 4 MG/2 ML VIAL IV PUSH ONE (09:30)
--- NOTE | 2017-03-16 09:36 | PD ---
HPI Chief Complaint: Pain: Acute or Chronic Time Seen by Provider: 09:16 Travel History International Travel<30 days: No Contact w/Intl Traveler<30days: No Traveled to known affect area: No History of Present Illness HPI This 61-year-old male is complaining of pain in the left groin. He was admitted to the hospital on February 27 with gangrene of his left great toe. He was found to have poor circulation in on the he had an endarterectomy by an incision in the left groin. He was discharged 2 days ago. He had been having some discomfort at the site. This morning around 1:00 he was woken up with pain at the site of the incision on the left groin. Since then the pain has become more severe in the area has become swollen. He is not aware of fever or chills. He has a history of coronary bypass and multiple stents. He has a history of atrial fibrillation and flutter and severe congestive heart failure. He has an ejection fraction 20%. He has diabetes. PFSH Past Medical History Hx Anticoagulant Therapy: Yes Asthma: No Atrial Fibrillation: Yes (ABLATION ) Autoimmune Disease: No Blood Disorders: No Anxiety: Yes Depression: Yes Heart Rhythm Problems: Yes (afib) Cancer: No Cardiovascular Problems: Yes (cad) High Cholesterol: Yes Chemotherapy: No Chest Pain: Yes Congestive Heart Failure: Yes COPD: No Cerebrovascular Accident: No Coronary Artery Disease: Yes Diabetes: Yes Diminished Hearing: No Endocrine: Yes (DIABETES) Gastrointestinal Disorders: Yes (GERD) GERD: No Glaucoma: No Genitourinary: No Hepatitis: No Hiatal Hernia: No Hypertension: Yes Immune Disorder: No Implanted Vascular Access Dvce: Yes Musculoskeletal: No Neurologic: No Psychiatric: Yes Reproductive: No Respiratory: Yes (chronic pneumonia) Immunizations Current: Yes Migraines: No Myocardial Infarction: Yes Radiation Therapy: No Renal Failure: No Seizures: No Sleep Apnea: No Thyroid Disease: Yes Ulcer: No Past Surgical History Abdominal Surgery: No AICD: Yes Arteriovenous Shunt: No Body Medical Devices: CARDIAC STENTS , current BIV ICD Cardiac Surgery: Yes (cabdx4 2001, pace defib 2016) Coronary Artery Bypass Graft: Yes (QUAD) Coronary Stent: Yes (X 7) Ear Surgery: No Endocrine Surgery: No Eye Surgery: No Genitourinary Surgery: No Insulin Pump: No Joint Replacement: No Oral Surgery: Yes (TEETH REMOVED) Pacemaker: Yes Thoracic Surgery: Yes (CABG "02") Other Surgery: Yes Social History Alcohol Use: No Tobacco Use: No (1 PPD; STATES RECENTLY QUIT) Substance Use: No Allergies-Medications (Allergen,Severity, Reaction): Coded Allergies: cyclobenzaprine (Unverified Allergy, Severe, Flushing, 03/16/17) REDNESS lisinopril (Unverified Allergy, Unknown, Swelling, 03/16/17) ANGIOEDEMA Reported Meds & Prescriptions Reported Meds & Active Scripts Active Zofran (Ondansetron HCl) 4 Mg Tab 4 Mg PO Q6HR PRN Furosemide 40 Mg Tab 40 Mg PO DAILY Atorvastatin (Atorvastatin Calcium) 80 Mg Tab 80 Mg PO DAILY Epinephrine Inj 1 Mg/Ml (1 Ml) Inj 0.3 Mg SQ ONCE PRN Give with any signs of respiratory distress. Epinephrine Inj 1 Mg/Ml (1 Ml) Inj 0.3 Mg IV PUSH ONCE PRN Solu-Cortef Inj (Hydrocortisone Sodium Succinate) 250 Mg/2 Ml Inj 250 Mg IV PUSH ONCE PRN Give over 30-60 seconds. Cefazolin Inj (Cefazolin Sodium/Dextrose) 2 Gm/50 Ml Bagp 2 Gm IV Q8H 28 Days Carvedilol 6.25 Mg Tab 6.25 Mg PO BID Brilinta (Ticagrelor) 90 Mg Tab 90 Mg PO BID Aspirin Low Strength (Aspirin) 81 Mg Chew 81 Mg PO DAILY Reported Zetia (Ezetimibe) 10 Mg Tab 10 Mg PO HS Effexor (Venlafaxine HCl) 75 Mg Tab 75 Mg PO DAILY Nitrostat SL (Nitroglycerin) 0.4 Mg Subl 0.4 Mg SL DIRECTED PRN 1 tablet under the tongue as needed for chest pain. Repeat every 5 minutes for a total of 3 DOSES or call 911 if NO relief. Clonazepam 0.5 Mg Tab 1 Mg PO BID PRN Levothyroxine (Levothyroxine Sodium) 25 Mcg Tab 25 Mcg PO DAILY Aldactone (Spironolactone) 25 Mg Tab 25 Mg PO BIDPC Gabapentin 100 Mg Cap 100 Mg PO QID Glipizide 5 Mg Tab 5 Mg PO DAILY Take 30 minutes before a meal Krill Oil 500 Mg Capsule 500 Mg PO BID Multivitamins (Multivitamin) 1 Each Tab.chew 1 Tab PO DAILY Ferosul (Ferrous Sulfate) 325 Mg Tablet 325 Mg PO BID Pioglitazone (Pioglitazone HCl) 45 Mg Tab 45 Mg PO DAILY Losartan (Losartan Potassium) 25 Mg Tab 25 Mg PO DAILY Metformin (Metformin HCl) 500 Mg Tab 500 Mg PO BID With meals Review of Systems General / Constitutional: No: Fever, Chills Eyes: No: Diploplia HENT: No: Headaches Cardiovascular: No: Chest Pain or Discomfort Respiratory: No: Cough Gastrointestinal: No: Nausea, Vomiting Genitourinary: No: Frequency Skin: No Dryness Neurologic: No: Focal Abnormalities Endocrine: No: Heat Intolerance Hematologic/Lymphatic: No: Easy Bruising Physical Exam Narrative GENERAL: Chronically ill-appearing male SKIN: Focused skin assessment warm/dry. HEAD: Atraumatic. Normocephalic. EYES: Pupils equal and round. No scleral icterus. No injection or drainage. ENT: No nasal bleeding or discharge. Mucous membranes pink and moist. NECK: Trachea midline. No JVD. CARDIOVASCULAR: Regular rate and rhythm. No murmur appreciated. RESPIRATORY: No accessory muscle use. Clear to auscultation. Breath sounds equal bilaterally. GASTROINTESTINAL: Abdomen soft, non-tender, nondistended. Hepatic and splenic margins not palpable. There is some mild left lower quadrant tenderness MUSCULOSKELETAL: No obvious deformities. No clubbing. No cyanosis. No edema. There is a surgical incision in the left groin. The underlying area is swollen and firm. There is a good popliteal pulse on the left side. There is a surgical wound from the amputation of the left great toe. There is some maceration of the skin at the site. There is an odor to the wound NEUROLOGICAL: Awake and alert. No obvious cranial nerve deficits. Motor grossly within normal limits. Normal speech. PSYCHIATRIC: Appropriate mood and affect; insight and judgment normal. Data Data Last Documented VS Vital Signs Date Time Temp Pulse Resp B/P (MAP) Pulse Ox O2 Delivery O2 Flow Rate FiO2 03/16/17 11:55 95 16 138/86 (103) 97 Room Air 03/16/17 09:08 97.6 Orders Orders Electrocardiogram (03/16/17 09:26) Complete Blood Count With Diff (03/16/17 09:26) Basic Metabolic Panel (Bmp) (03/16/17 09:26) Prothrombin Time / Inr (Pt) (03/16/17 09:26) Act Partial Throm Time (Ptt) (03/16/17 09:26) Urinalysis - C+S If Indicated (03/16/17 09:26) Wound Culture And Gram Stain (03/16/17 09:26) Sodium Chlor 0.9% 1000 Ml Inj (Ns 1000 M (03/16/17 09:30) Ondansetron Inj (Zofran Inj) (03/16/17 09:30) Hydromorphone Pf Inj (Dilaudid Pf Inj) (03/16/17 09:30) Us Leg Hematoma/Pseudoaneurysm (03/16/17 ) Hydromorphone Pf Inj (Dilaudid Pf Inj) (03/16/17 11:45) Labs Laboratory Tests Test 03/16/17 09:45 03/16/17 11:50 White Blood Count 17.1 TH/MM3 Red Blood Count 3.59 MIL/MM3 Hemoglobin 9.6 GM/DL Hematocrit 29.2 % Mean Corpuscular Volume 81.4 FL Mean Corpuscular Hemoglobin 26.7 PG Mean Corpuscular Hemoglobin Concent 32.8 % Red Cell Distribution Width 16.3 % Platelet Count 413 TH/MM3 Mean Platelet Volume 7.5 FL Neutrophils (%) (Auto) 88.0 % Lymphocytes (%) (Auto) 6.7 % Monocytes (%) (Auto) 4.2 % Eosinophils (%) (Auto) 0.7 % Basophils (%) (Auto) 0.4 % Neutrophils # (Auto) 15.1 TH/MM3 Lymphocytes # (Auto) 1.1 TH/MM3 Monocytes # (Auto) 0.7 TH/MM3 Eosinophils # (Auto) 0.1 TH/MM3 Basophils # (Auto) 0.1 TH/MM3 CBC Comment DIFF FINAL Differential Comment Prothrombin Time 13.1 SEC Prothromb Time International Ratio 1.2 RATIO Activated Partial Thromboplast Time 28.8 SEC Blood Urea Nitrogen 11 MG/DL Creatinine 0.83 MG/DL Random Glucose 190 MG/DL Calcium Level 8.6 MG/DL Sodium Level 134 MEQ/L Potassium Level 3.6 MEQ/L Chloride Level 99 MEQ/L Carbon Dioxide Level 22.4 MEQ/L Anion Gap 13 MEQ/L Estimat Glomerular Filtration Rate 94 ML/MIN Urine Collection Type VOIDED Urine Color STRAW Urine Turbidity CLEAR Urine pH 6.0 Urine Specific [place] 1.014 Urine Protein TRACE mg/dL Urine Glucose (UA) NEG mg/dL Urine Ketones 15 mg/dL Urine Occult Blood NEG Urine Nitrite NEG Urine Bilirubin NEG Urine Leukocyte Esterase NEG Urine RBC /hpf Urine WBC 0-2 /hpf Urine Squamous Epithelial Cells 0-3 /hpf Microscopic Urinalysis Comment CULT NOT INDICATED MDM Medical Decision Making Medical Screen Exam Complete: Yes Emergency Medical Condition: Yes Medical Record Reviewed: Yes Differential Diagnosis Differential includes postoperative swelling, hematoma, abscess Narrative Course Exam is most consistent with hematoma. An ultrasound was requested to rule out pseudoaneurysm and shows a hematoma with good flow. Dr. Esparza has come to see the patient. He will be released with prescription for pain medication Diagnosis Primary Impression: Hematoma Scripts Hydrocodone-Acetaminophen (Lortab) 5-325 Mg Tab 1-2 TAB PO Q6H Y for PAIN, #30 TAB 0 Refills Prov: Tyrone Arce MD 03/16/17 Disposition: 01 DISCHARGE HOME Condition: Stable Tyrone Arce MD Mar 16, 2017 09:36
[2017-03-16 10:00] LABS: AUTOMATED NEUTROPHIL # 15.1 TH/MM3 (1.8-7.7); BASOPHIL # 0.1 TH/MM3 (0-0.2); BASOPHIL % 0.4 % (0.0-2.0); EOSINOPHIL # 0.1 TH/MM3 (0-0.4); EOSINOPHIL % 0.7 % (0.0-4.0); HEMATOCRIT 29.2 % (39.0-51.0); HEMO FLAGS DIFF FINAL; LYMPH % 6.7 % (9.0-44.0); LYMPHOCYTE # 1.1 TH/MM3 (1.0-4.8); MEAN CELL VOLUME 81.4 FL (80.0-100.0); MEAN CORPUSCULAR HEMOGLOBIN 26.7 PG (27.0-34.0); MEAN CORPUSCULAR HGB CONC 32.8 % (32.0-36.0); MONO % 4.2 % (0.0-8.0); PLATELET COUNT 413 TH/MM3 (150-450); RED BLOOD COUNT 3.59 MIL/MM3 (4.50-5.90); RED CELL DISTRIBUTION WIDTH 16.3 % (11.6-17.2); WHITE BLOOD COUNT 17.1 TH/MM3 (4.0-11.0)
[2017-03-16 10:10] VITALS: BP 140/80; PULSE 101; RESP 16; O2SAT 96
[2017-03-16 10:14] LABS: POTASSIUM 3.6 MEQ/L (3.5-5.1)
[2017-03-16 10:17] LABS: BICARBONATE 22.4 MEQ/L (21.0-32.0)
[2017-03-16 10:30] LABS: APTT (PATIENT) 28.8 SEC (24.3-30.1); INTERNATIONAL NORMALIZED RATIO 1.2 RATIO; PROTHROMBIN TIME - PATIENT 13.1 SEC (9.8-11.6)
[2017-03-16 11:16] VITALS: BP 140/90; PULSE 98; RESP 16; O2SAT 96
[2017-03-16 11:55] VITALS: BP 138/86; PULSE 95; RESP 16; O2SAT 97
[2017-03-16 12:05] LABS: BLOOD, URINE NEG (NEG); GLUCOSE,URINE NEG (NEG); KETONE, URINE 15 mg/dL (NEG); NITRITE,URINE NEG (NEG)
[2017-03-16 12:11] LABS: METHOD OF COLLECTION VOIDED; URINE COLOR STRAW (YELLW/STRAW)
[2017-03-16 12:12] LABS: WBC, URINE 0-2 /hpf (0-5)
[2017-03-16 12:13] LABS: COMMENT (UR) CULT NOT INDICATED; CULTURE IF INDICATED CULT NOT INDICATED; SQUAMOUS EPITHELIAL CELL URINE 0-3 /hpf (0-5)
[2017-03-16 13:00] VITALS: RESP 16
--- NOTE | 2017-03-16 13:51 | RADRPT ---
EXAM DATE/TIME: 03/16/2017 12:30 [place] COMPARISON: No previous studies available for comparison. INDICATIONS : Left groin palpable lump. MEDICAL HISTORY : Myocardial infarction. Congestive heart failure. Peripheral vascular disease. Thyroid disease. Edentu lous. Coronary artery disease. Hypercholesterolemia. Chest pain. Afib. HTN. Chronic pneumonia. GERD. Dyspnea. Renal disease. Arthritis. Diabetes. Clotting disorder. Depression. Anxiety. Anticoagulant th erapy. SURGICAL HISTORY : CABG. Pacemaker. Coronary artery stent. Cardiac ablation. Cardiac cath. Angioplasty. Carotid endarter ectomy. Left femoral endarterectomy. Left great toe amputation. Blood transfusions. ENCOUNTER: Initial ACUITY: 1 day PAIN SCORE: 10/10 LOCATION: Left leg. AREA EVALUATED: Left inguinal canal. FINDINGS: There is no hematoma measuring a cm and the left groin without pseudoaneurysm. CONCLUSION: Negative for pseudoaneurysm. There is good arterial flow. Ronny Moreno MD FACR on March 16, 2017 at 13:48 Board Certified Radiologist. This report was verified electronically.
--- NOTE | 2017-03-16 13:54 | PD.CAR.PN ---
CVT Progress Note Subjective/Hospital Course: 61-year-old male who underwent 3 weeks ago left leg vascular reconstruction with the endarterectomy patch and balloon angioplasty. Patient did well postop and was eventually discharged. Last night he noted some pain in the left groin that came in suddenly so he presented to the emergency room. On physical exam he has excellent femoral-popliteal dissolves pedis and posterior tibial pulse on Doppler. The site of the left toe amputation is healing nicely and patient is to see hand filer balance wheel in next few days. The questionable bare area of the right groin is soft but does reveal slight swelling which is fairly diffuse but no signs of infection. In this case a suspect a small hematoma and ultrasound has been performed which confirms the same yet no leak no pseudoaneurysm or any other concerning problem. Patient is excellent 3-D duplex flow in common femoral superficial femoral and distal vessels. Patient does have small vessel disease known from before and there is nothing we can do about that. Recommend some warm compresses on the incision. Objective: Vital Signs Date Time Temp Pulse Resp B/P (MAP) Pulse Ox O2 Delivery O2 Flow Rate FiO2 03/16/17 11:55 95 16 138/86 (103) 97 Room Air 03/16/17 11:17 94 16 03/16/17 11:16 98 16 140/90 (107) 96 Room Air 03/16/17 10:20 16 03/16/17 10:10 101 16 140/80 (100) 96 Room Air 03/16/17 09:32 90 16 03/16/17 09:08 97.6 91 18 136/75 (95) 97 Labs: Laboratory Tests Test 03/16/17 09:45 03/16/17 11:50 White Blood Count 17.1 TH/MM3 (4.0-11.0) Red Blood Count 3.59 MIL/MM3 (4.50-5.90) Hemoglobin 9.6 GM/DL (13.0-17.0) Hematocrit 29.2 % (39.0-51.0) Mean Corpuscular Volume 81.4 FL (80.0-100.0) Mean Corpuscular Hemoglobin 26.7 PG (27.0-34.0) Mean Corpuscular Hemoglobin Concent 32.8 % (32.0-36.0) Red Cell Distribution Width 16.3 % (11.6-17.2) Platelet Count 413 TH/MM3 (150-450) Mean Platelet Volume 7.5 FL (7.0-11.0) Neutrophils (%) (Auto) 88.0 % (16.0-70.0) Lymphocytes (%) (Auto) 6.7 % (9.0-44.0) Monocytes (%) (Auto) 4.2 % (0.0-8.0) Eosinophils (%) (Auto) 0.7 % (0.0-4.0) Basophils (%) (Auto) 0.4 % (0.0-2.0) Neutrophils # (Auto) 15.1 TH/MM3 (1.8-7.7) Lymphocytes # (Auto) 1.1 TH/MM3 (1.0-4.8) Monocytes # (Auto) 0.7 TH/MM3 (0-0.9) Eosinophils # (Auto) 0.1 TH/MM3 (0-0.4) Basophils # (Auto) 0.1 TH/MM3 (0-0.2) CBC Comment DIFF FINAL Differential Comment Prothrombin Time 13.1 SEC (9.8-11.6) Prothromb Time International Ratio 1.2 RATIO Activated Partial Thromboplast Time 28.8 SEC (24.3-30.1) Blood Urea Nitrogen 11 MG/DL (7-18) Creatinine 0.83 MG/DL (0.60-1.30) Random Glucose 190 MG/DL (74-106) Calcium Level 8.6 MG/DL (8.5-10.1) Sodium Level 134 MEQ/L (136-145) Potassium Level 3.6 MEQ/L (3.5-5.1) Chloride Level 99 MEQ/L (98-107) Carbon Dioxide Level 22.4 MEQ/L (21.0-32.0) Anion Gap 13 MEQ/L (5-15) Estimat Glomerular Filtration Rate 94 ML/MIN (>89) Urine Collection Type VOIDED Urine Color STRAW (YELLW/STRAW) Urine Turbidity CLEAR (CLEAR) Urine pH 6.0 (5.0-8.5) Urine Specific [place] 1.014 (1.002-1.035) Urine Protein TRACE mg/dL (NEG-TRACE) Urine Glucose (UA) NEG mg/dL (NEG) Urine Ketones 15 mg/dL (NEG) Urine Occult Blood NEG (NEG) Urine Nitrite NEG (NEG) Urine Bilirubin NEG (NEG) Urine Leukocyte Esterase NEG (NEG) Urine RBC /hpf (0-3) Urine WBC 0-2 /hpf (0-5) Urine Squamous Epithelial Cells 0-3 /hpf (0-5) Microscopic Urinalysis Comment CULT NOT INDICATED Result Diagram: 03/16/17 0945 03/16/17 0945 Trisha Fleming MD Mar 16, 2017 13:54
[2017-03-16] MEDS ORDERED: HYDR-3533 PO (13:59)
[2017-03-16 14:24] VITALS: BP 138/78
--- NOTE | 2017-03-17 13:29 | EKG ---
Date Performed: 03/16/2017 Time Performed: 09:35:26 PTAGE: 61 years EKG: ELECTRONIC VENTRICULAR PACEMAKER Compared to prior tracing no significant change ABNORMAL R HYTHM ECG PREVIOUS TRACING : 03/02/2017 16.06 DOCTOR: Sanjiv Figueroa Interpretating Date/Time 03/17/2017 13:27:49
[2017-03-29] MEDS ORDERED: LEVA500T20 PO (10:21)
[2017-04-12] MEDS ORDERED: VANC1INJ2 IV (10:22)
[2017-04-19] MEDS ORDERED: CIPR-9 PO (09:49)
== END 2017-03-16 14:32 | disposition home or self-care (01) ==
LOC: PHED 09:01
DX: L76.32 Postprocedural hematoma of skin and subcutaneous tissue following other procedure (principal); R94.31 Abnormal electrocardiogram [ECG] [EKG]; B95.7 Other staphylococcus as the cause of diseases classified elsewhere; E11.9 Type 2 diabetes mellitus without complications; I10 Essential (primary) hypertension; E07.9 Disorder of thyroid, unspecified; E78.00 Pure hypercholesterolemia, unspecified; I25.2 Old myocardial infarction; Z98.890 Other specified postprocedural states; Z95.1 Presence of aortocoronary bypass graft; Z79.01 Long term (current) use of anticoagulants; Z79.84 Long term (current) use of oral hypoglycemic drugs; Z86.79 Personal history of other diseases of the circulatory system; Z87.19 Personal history of other diseases of the digestive system; Z87.09 Personal history of other diseases of the respiratory system; Z86.59 Personal history of other mental and behavioral disorders
CPT/HCPCS: 80048; 81001; 85025; 85610; 85730; 86403; 87070; 87077; 87186; 87205; 93005; 93926; 96361; 96374; 96375; 96376; 99285; J1170; J1642; J2405; J7030

== ENCOUNTER 2017-03-26 18:20 | Inpatient (IN) | payer MEDICARE ==
[~2017-03-26 18:20] MED LIST changes: +HYDR-3533 PO; -NICO21DI25 T-DERMAL; -QUET1TAB8 PO
[2017-03-26 18:28] VITALS: BP 108/60; PULSE 99; RESP 20; TEMP 98.1; O2SAT 96
[2017-03-26] MEDS ORDERED: CEFA2PLA5 IV (18:51)
[2017-03-26] MEDS ORDERED: SODI1TAB PO (18:51)
[2017-03-26] MEDS ORDERED: FLOR250C PO (18:51)
[2017-03-26] MEDS ORDERED: SIMV40TA PO (18:51)
[2017-03-26] MEDS ORDERED: GABA100C4 PO (18:51)
[2017-03-26 18:54] VITALS: O2SAT 94
--- NOTE | 2017-03-26 18:57 | PD ---
HPI Chief Complaint: Abnormal Results Time Seen by Provider: 18:39 Travel History International Travel<30 days: No Contact w/Intl Traveler<30days: No Traveled to known affect area: No History of Present Illness HPI 61-year-old male with history of CAD, CHF, diabetes, recent left femoral endarterectomy for ischemic left great toe and left foot, currently on Ancef 2 g every 8 hours for left foot osteomyelitis, sent in by his primary care physician for evaluation of anemia. Patient had labs performed 3 days ago that were resulted today and showed a hemoglobin of 6. Patient is complaining of generalized weakness and shortness of breath. He takes iron daily likely attributed to his black stool. He is otherwise not noticed any hematochezia. He developed a hematoma in his left inguinal region after his endarterectomy and was evaluated for this in the emergency department on 03/16/17. The hematoma is still there, however appears to be getting smaller. He denies chest pain. He takes Brillinta and aspirin 81 mg daily. No other antiplatelets or anticoagulants. PFSH Past Medical History Hx Anticoagulant Therapy: Yes Arthritis: Yes Asthma: No Atrial Fibrillation: Yes (ABLATION ) Autoimmune Disease: No Blood Disorders: No Anxiety: Yes Depression: Yes Heart Rhythm Problems: Yes (afib) Cancer: No Cardiac Catheterization: Yes Cardiovascular Problems: Yes (cad) High Cholesterol: Yes Chemotherapy: No Chest Pain: Yes Congestive Heart Failure: Yes COPD: No Cerebrovascular Accident: No Coronary Artery Disease: Yes Diabetes: Yes Patient Takes Glucophage: Yes Diminished Hearing: No Endocrine: Yes (DIABETES) Gastrointestinal Disorders: Yes (GERD) GERD: No Glaucoma: No Genitourinary: No Hepatitis: No Hiatal Hernia: No Hypertension: Yes Immune Disorder: No Implanted Vascular Access Dvce: Yes (RIGHT ARM PIC) Medical other: Yes (LEFT TOE AMPUTATION) Musculoskeletal: No Neurologic: No Psychiatric: Yes Reproductive: No Respiratory: Yes (chronic pneumonia) Immunizations Current: Yes Migraines: No Myocardial Infarction: Yes (x3) Radiation Therapy: No Renal Failure: No Seizures: No Sleep Apnea: No Thyroid Disease: Yes Ulcer: No Tetanus Vaccination: > 5 Years Influenza Vaccination: Yes Past Surgical History Abdominal Surgery: Yes (left femoral endarterectomy 02/2017) AICD: Yes Arteriovenous Shunt: No Body Medical Devices: CARDIAC STENTS , current BIV ICD Cardiac Surgery: Yes (cabdx4 2001, pace defib 2015, cardiac ablation 2015) Coronary Artery Bypass Graft: Yes (QUAD 2001) Coronary Stent: Yes (X 7) Ear Surgery: No Endocrine Surgery: No Eye Surgery: No Genitourinary Surgery: No Insulin Pump: No Joint Replacement: No Neurologic Surgery: No Oral Surgery: Yes (TEETH REMOVED) Pacemaker: Yes Thoracic Surgery: Yes (CABG "02") Other Surgery: Yes (left great toe amputation 03/06/17) Social History Alcohol Use: No Tobacco Use: No (1 PPD; STATES RECENTLY QUIT) Substance Use: No Allergies-Medications (Allergen,Severity, Reaction): Coded Allergies: cyclobenzaprine (Unverified Allergy, Severe, Flushing, 03/26/17) REDNESS lisinopril (Unverified Allergy, Unknown, Swelling, 03/26/17) ANGIOEDEMA Reported Meds & Prescriptions Reported Meds & Active Scripts Active Lortab (Hydrocodone-Acetaminophen) 5-325 Mg Tab 1-2 Tab PO Q6H PRN Zofran (Ondansetron HCl) 4 Mg Tab 4 Mg PO Q6HR PRN Furosemide 40 Mg Tab 40 Mg PO DAILY Carvedilol 6.25 Mg Tab 6.25 Mg PO BID Brilinta (Ticagrelor) 90 Mg Tab 90 Mg PO BID Aspirin Low Strength (Aspirin) 81 Mg Chew 81 Mg PO DAILY Reported Cefazolin Inj (Cefazolin Sodium/Dextrose) 2 Gm/50 Ml Bagp 2 Gm IV Q8H Sodium Chloride 1 Gram Tab 1 Gm PO DAILY Florastor (Saccharomyces Boulardii) 250 Mg Cap 250 Mg PO BID Simvastatin 40 Mg Tab 40 Mg PO HS Gabapentin 100 Mg Cap 100 Mg PO TID Zetia (Ezetimibe) 10 Mg Tab 10 Mg PO HS Effexor (Venlafaxine HCl) 75 Mg Tab 75 Mg PO DAILY Nitrostat SL (Nitroglycerin) 0.4 Mg Subl 0.4 Mg SL DIRECTED PRN 1 tablet under the tongue as needed for chest pain. Repeat every 5 minutes for a total of 3 DOSES or call 911 if NO relief. Clonazepam 0.5 Mg Tab 1 Mg PO BID PRN Aldactone (Spironolactone) 25 Mg Tab 25 Mg PO BIDPC Krill Oil 500 Mg Capsule 500 Mg PO BID Multivitamins (Multivitamin) 1 Each Tab.chew 1 Tab PO DAILY Pioglitazone (Pioglitazone HCl) 45 Mg Tab 45 Mg PO DAILY Losartan (Losartan Potassium) 25 Mg Tab 25 Mg PO DAILY Metformin (Metformin HCl) 500 Mg Tab 500 Mg PO BID With meals Review of Systems Except as stated in HPI: all other systems reviewed are Neg Physical Exam Narrative GENERAL: Well-developed, well-nourished, awake, alert, slightly tachypneic. SKIN: Focused skin assessment warm/dry. Diffuse pallor. HEAD: Atraumatic. Normocephalic. EYES: Pupils equal and round. No scleral icterus. No injection or drainage. Conjunctival pallor. ENT: Mucous membranes pink and dry. NECK: Trachea midline. No JVD. CARDIOVASCULAR: Tachycardic, rate 105, regular. Right upper extremity PICC line. RESPIRATORY: Tachypneic with belly breathing. Speaking full sentences. Clear to auscultation. Breath sounds equal bilaterally. GASTROINTESTINAL: Abdomen soft, non-tender, nondistended. Stool is heme positive and black. MUSCULOSKELETAL: Left foot wrapped in a clean dressing. Bilateral legs are warm with normal capillary refill. Moderate bilateral lower extremity edema. Left inguinal region with area of induration with surgical scar that is well- healed without warmth or erythema. Area of induration is smaller than the previously marked area on the patient's skin. NEUROLOGICAL: Awake and alert. No obvious cranial nerve deficits. Motor grossly within normal limits. Normal speech. PSYCHIATRIC: Appropriate mood and affect; insight and judgment normal. Data Data Last Documented VS Vital Signs Date Time Temp Pulse Resp B/P (MAP) Pulse Ox O2 Delivery O2 Flow Rate FiO2 03/26/17 20:29 96 18 113/59 (77) 96 Room Air 03/26/17 18:28 98.1 Orders Orders Complete Blood Count With Diff (03/26/17 18:49) Comprehensive Metabolic Panel (03/26/17 18:49) Prothrombin Time / Inr (Pt) (03/26/17 18:49) Act Partial Throm Time (Ptt) (03/26/17 18:49) Type And Screen (03/26/17 18:49) Ecg Monitoring (03/26/17 18:49) Iv Access Insert/Monitor (03/26/17 18:49) Oximetry (03/26/17 18:49) Pantoprazole Inj (Protonix Inj) (03/26/17 19:00) Sodium Chloride 0.9% Flush (Ns Flush) (03/26/17 19:00) Electrocardiogram (03/26/17 18:49) B-Type Natriuretic Peptide (03/26/17 18:49) Chest, Single Ap (03/26/17 18:49) Cbc No Diff, Includes Plts (03/26/17 20:01) Ckmb (Isoenzyme) Profile (03/26/17 19:00) Troponin I (03/26/17 19:00) Furosemide Inj (Lasix Inj) (03/26/17 21:15) Labs Laboratory Tests Test 03/26/17 19:00 03/26/17 20:27 White Blood Count 13.4 TH/MM3 12.3 TH/MM3 Red Blood Count 3.46 MIL/MM3 3.37 MIL/MM3 Hemoglobin 9.7 GM/DL 9.4 GM/DL Hematocrit 28.9 % 28.1 % Mean Corpuscular Volume 83.7 FL 83.3 FL Mean Corpuscular Hemoglobin 28.1 PG 27.7 PG Mean Corpuscular Hemoglobin Concent 33.6 % 33.3 % Red Cell Distribution Width 19.5 % 19.0 % Platelet Count 388 TH/MM3 367 TH/MM3 Mean Platelet Volume 7.6 FL 7.5 FL Neutrophils (%) (Auto) 88.0 % Lymphocytes (%) (Auto) 5.6 % Monocytes (%) (Auto) 4.9 % Eosinophils (%) (Auto) 1.2 % Basophils (%) (Auto) 0.3 % Neutrophils # (Auto) 11.7 TH/MM3 Lymphocytes # (Auto) 0.8 TH/MM3 Monocytes # (Auto) 0.7 TH/MM3 Eosinophils # (Auto) 0.2 TH/MM3 Basophils # (Auto) 0.0 TH/MM3 CBC Comment DIFF FINAL Differential Comment Prothrombin Time 13.0 SEC Prothromb Time International Ratio 1.2 RATIO Activated Partial Thromboplast Time 27.8 SEC Blood Urea Nitrogen 12 MG/DL Creatinine 1.10 MG/DL Random Glucose 156 MG/DL Total Protein 7.7 GM/DL Albumin 2.9 GM/DL Calcium Level 9.2 MG/DL Alkaline Phosphatase 88 U/L Aspartate Amino Transf (AST/SGOT) 14 U/L Alanine Aminotransferase (ALT/SGPT) 7 U/L Total Bilirubin 0.6 MG/DL Sodium Level 133 MEQ/L Potassium Level 3.6 MEQ/L Chloride Level 98 MEQ/L Carbon Dioxide Level 24.5 MEQ/L Anion Gap 11 MEQ/L Estimat Glomerular Filtration Rate 68 ML/MIN Total Creatine Kinase 28 U/L Troponin I 0.06 NG/ML B-Type Natriuretic Peptide 985 PG/ML MDM Medical Decision Making Medical Screen Exam Complete: Yes Emergency Medical Condition: Yes Medical Record Reviewed: Yes Interpretation(s) EKG: Electronic ventricular paced, rate 100. Computer reading read as marked ST depression consider subendocardial injury with acute MN. EKG looks similar to previous and the patient is not complaining of any chest pain. I do not believe that this in acute MN. This was discussed with both the patient and the patient's . Differential Diagnosis Anemia, GI bleed, hematoma, pulmonary edema/CHF Narrative Course Initial vital signs show heart rate 99, blood pressure 108/60, pulse ox 94% on room air, oral temp of 98.1F. Initial CBC shows WBC 13.4, hemoglobin 9.7, hematocrit 28.9, platelets 388. Repeat CBC shows hemoglobin 9.4, hematocrit 28.1. CMP is essentially unremarkable. Troponin is 0.06. BNP is 985. Chest x-ray: CONCLUSION: 1. Mild to moderate pulmonary vascular congestion bilaterally. 2. Cardiomegaly. 3. Small left pleural effusion. Although the patient's EKG computer reading is read as markedly ST depression consider subendocardial injury, acute MN. The patient has electronically ventricular paced. He is not complaining of any chest pain. I do not believe that this is an MN. Stool is heme positive and black. Patient is on iron which could be contributing to the black stool. He is also on Brilinta The patient was given 40 mg of IV Lasix. He is tachypneic, complains of orthopnea, and has bilateral pedal edema on exam. reports that his EF is 25%. His split leather mosser is Dr. Steele. He will be admitted for further treatment and evaluation of CHF exacerbation, heme positive stool. Case discussed with hospitalist Dr. Hyatt who will admit the patient to her service. The patient and the patient's were made aware of all findings and plan for admission. Diagnosis Primary Impression: CHF exacerbation Qualified Codes: I50.9 - Heart failure, unspecified Additional Impression: Heme positive stool Admitting Information Admitting Physician Requests: Admit Fernando Bruno MD Mar 26, 2017 18:56
[2017-03-26] MEDS ORDERED: SODIUM CHLORIDE 0.9% FLUSH 10 ML FLUSH IVF PRN (19:00)
[2017-03-26] MEDS ORDERED: PANTOPRAZOLE SODIUM 40 MG VIAL IVP ONE (19:00)
[2017-03-26] MEDS ORDERED: CEFA2SOL IV (19:04)
[2017-03-26 19:25] LABS: CHLORIDE 98 MEQ/L (98-107); POTASSIUM 3.6 MEQ/L (3.5-5.1); SODIUM (NA) 133 MEQ/L (136-145)
[2017-03-26 19:29] LABS: ANION GAP 11 MEQ/L (5-15); BICARBONATE 24.5 MEQ/L (21.0-32.0); BLOOD UREA NITROGEN 12 MG/DL (7-18)
[2017-03-26 19:30] LABS: APTT (PATIENT) 27.8 SEC (24.3-30.1); INTERNATIONAL NORMALIZED RATIO 1.2 RATIO
[2017-03-26 19:32] LABS: ALT (GPT) 7 U/L (12-78); AST (GOT) 14 U/L (15-37); GLOMERULAR FILTRATION RATE 68 ML/MIN (>89)
[2017-03-26 19:33] LABS: TOTAL BILIRUBIN ADULT 0.6 MG/DL (0.2-1.0)
[2017-03-26 19:35] LABS: ALKALINE PHOSPHATASE 88 U/L (45-117)
[2017-03-26 19:58] LABS: AUTOMATED NEUTROPHIL # 11.7 TH/MM3 (1.8-7.7); BASOPHIL % 0.3 % (0.0-2.0); EOSINOPHIL # 0.2 TH/MM3 (0-0.4); EOSINOPHIL % 1.2 % (0.0-4.0); HEMATOCRIT 28.9 % (39.0-51.0); HEMO FLAGS DIFF FINAL; LYMPH % 5.6 % (9.0-44.0); LYMPHOCYTE # 0.8 TH/MM3 (1.0-4.8); MEAN CELL VOLUME 83.7 FL (80.0-100.0); MEAN CORPUSCULAR HEMOGLOBIN 28.1 PG (27.0-34.0); MEAN CORPUSCULAR HGB CONC 33.6 % (32.0-36.0); MONO % 4.9 % (0.0-8.0); PLATELET COUNT 388 TH/MM3 (150-450); RED BLOOD COUNT 3.46 MIL/MM3 (4.50-5.90); RED CELL DISTRIBUTION WIDTH 19.5 % (11.6-17.2); WHITE BLOOD COUNT 13.4 TH/MM3 (4.0-11.0)
--- NOTE | 2017-03-26 19:58 | RADRPT ---
EXAM DATE/TIME: 03/26/2017 19:28 [facility] COMPARISON: CHEST SINGLE AP, March 10, 2017, 9:13. INDICATIONS : Shortness of breath. MEDICAL HISTORY : Hypertension. Congestive heart failure. Myocardial infarction. SURGICAL HISTORY : CABG. Pacemaker. Coronary artery stent. Cardiac Catheterization. ENCOUNTER: Initial ACUITY: 1 day PAIN SCORE: 0/10 LOCATION: Bilateral chest FINDINGS: Median sternotomy wires are noted status post cardiac surgery. A left subclavian multilead pacemaker is again noted with its tips in the right atrium and right ventricle. Mild to moderate pulmonary vas cular congestion is noted. The heart is enlarged. A small left pleural effusion is noted. A right- sided PICC is stable in appearance compared to the previous examination with its tip in the superior vena cava. CONCLUSION: 1. Mild to moderate pulmonary vascular congestion bilaterally. 2. Cardiomegaly. 3. Small left pleural effusion. Thomas Acosta MD on March 26, 2017 at 19:46 Board Certified Radiologist. This report was verified electronically.
[2017-03-26 20:29] VITALS: BP 113/59; PULSE 96; RESP 18; O2SAT 96
[2017-03-26 20:55] LABS: HEMATOCRIT 28.1 % (39.0-51.0); MEAN CELL VOLUME 83.3 FL (80.0-100.0); MEAN CORPUSCULAR HEMOGLOBIN 27.7 PG (27.0-34.0); MEAN CORPUSCULAR HGB CONC 33.3 % (32.0-36.0); PLATELET COUNT 367 TH/MM3 (150-450); RED BLOOD COUNT 3.37 MIL/MM3 (4.50-5.90); WHITE BLOOD COUNT 12.3 TH/MM3 (4.0-11.0)
[2017-03-26 21:08] LABS: REVIEW FLAG FINAL
[2017-03-26 21:14] LABS: CREATINE KINASE 28 U/L (39-308)
[2017-03-26] MEDS ORDERED: FUROSEMIDE 40 MG/4 ML VIAL IV PUSH ONE (21:15)
[2017-03-26] MEDS ORDERED: SODIUM CHLORIDE 0.9% FLUSH 10 ML FLUSH IV FLUSH PRN (22:15)
[2017-03-26] MEDS ORDERED: POTASSIUM CHLORIDE 20 MEQ CONTROLLED RELEASE TAB PO ONE (22:15)
[2017-03-26] MEDS ORDERED: NALOXONE HCL 0.4 MG/ML AMP IV PUSH PRN (22:15)
[2017-03-26] MEDS: ceFAZolin 2 GM/50 ML BAG IV SCH (22:28)
[2017-03-27] VITALS (8 sets, daily range): BP systolic 92–129; BP diastolic 59–86; PULSE 83–107; RESP 12–20; TEMP 96.7–99.3; O2SAT 94–97
[2017-03-27 03:25] LABS: REVIEW FLAG FINAL
[2017-03-27 03:39] LABS: HEMATOCRIT 26.5 % (39.0-51.0)
[2017-03-27] MEDS: ceFAZolin 2 GM/50 ML BAG IV SCH ×3 (05:41→21:15)
[2017-03-27 05:58] LABS: AUTOMATED NEUTROPHIL # 9.4 TH/MM3 (1.8-7.7); BASOPHIL % 0.2 % (0.0-2.0); EOSINOPHIL # 0.1 TH/MM3 (0-0.4); EOSINOPHIL % 1.2 % (0.0-4.0); HEMATOCRIT 26.6 % (39.0-51.0); HEMO FLAGS DIFF FINAL; LYMPH % 7.8 % (9.0-44.0); LYMPHOCYTE # 0.9 TH/MM3 (1.0-4.8); MEAN CELL VOLUME 85.8 FL (80.0-100.0); MEAN CORPUSCULAR HEMOGLOBIN 28.4 PG (27.0-34.0); MONO % 6.4 % (0.0-8.0); NEUT % 84.4 % (16.0-70.0); PLATELET COUNT 316 TH/MM3 (150-450); WHITE BLOOD COUNT 11.1 TH/MM3 (4.0-11.0)
[2017-03-27 06:10] LABS: POTASSIUM 3.7 MEQ/L (3.5-5.1)
[2017-03-27 06:13] LABS: BICARBONATE 24.1 MEQ/L (21.0-32.0)
[2017-03-27] MEDS: FUROSEMIDE 40 MG/4 ML VIAL IV PUSH SCH ×2 (08:32→19:21)
[2017-03-27] MEDS: SODIUM CHLORIDE 0.9% FLUSH 10 ML FLUSH IV FLUSH SCH ×2 (08:32→21:16)
[2017-03-27 11:36] LABS: HEMATOCRIT 27.3 % (39.0-51.0); REVIEW FLAG FINAL
[2017-03-27] MEDS ORDERED: KRILL OIL 500 MG PO SCH (12:30)
[2017-03-27] MEDS ORDERED: NITROGLYCERIN 0.4 MG SL 25 TABS/BTL SL PRN (12:30)
[2017-03-27] MEDS ORDERED: clonazePAM 0.5 MG TAB PO PRN (12:30)
[2017-03-27] MEDS ORDERED: TICAGRELOR 90 MG TAB PO SCH (12:30)
[2017-03-27] MEDS: CARVEDILOL 6.25 MG TAB PO SCH ×2 (13:45→21:15)
[2017-03-27] MEDS: VENLAFAXINE HCL XR 75 MG CAP PO SCH (13:46)
[2017-03-27] MEDS: GABAPENTIN 100 MG CAP PO SCH ×2 (13:46→18:27)
[2017-03-27] MEDS: LEVOTHYROXINE SODIUM 25 MCG TAB PO SCH (13:46)
[2017-03-27] MEDS: ASPIRIN 81 MG CHEW TAB PO SCH (13:46)
[2017-03-27 14:16] LABS: HEMATOCRIT 27.6 % (39.0-51.0); REVIEW FLAG FINAL
[2017-03-27 15:33] LABS: BLOOD, URINE NEG (NEG); GLUCOSE,URINE NEG (NEG); KETONE, URINE TRACE mg/dL (NEG); NITRITE,URINE NEG (NEG); PH, URINE 5.5 (5.0-8.5)
[2017-03-27 15:39] LABS: URINE COLOR AMBER (YELLW/STRAW)
[2017-03-27 15:40] LABS: COMMENT (UR) CULT NOT INDICATED; CULTURE IF INDICATED CULT NOT INDICATED; RBC, URINE 0-3 /hpf (0-3); SQUAMOUS EPITHELIAL CELL URINE 0-5 /hpf (0-5); WBC, URINE 0-2 /hpf (0-5)
[2017-03-27] MEDS: SPIRONOLACTONE 25 MG TAB PO SCH (18:27)
--- NOTE | 2017-03-27 19:25 | HHI.HP ---
[facility] Kimi Snow MD Admission Diagnosis CHF exacerbation, heme positive stool Diagnoses: Chief Complaint: sob Travel History International Travel<30 Days: No Contact w/Intl Traveler <30 Da: No Traveled to Known Affected Are: No History of Present Illness This is a 61-year-old male with extensive past medical history of CAD, CHF, diabetes who is status post recent left femoral endarterectomy for ischemic left great toe and left foot. The patient is currently taking Ancef 2 g every 8 hours for left foot osteomyelitis. The patient was sent by his primary care physician for evaluation of anemia. The patient states that he was called by his PMD office stating that his hemoglobin was 6 and that he should come to the hospital. The patient states that lately he has been feeling weak and also has been having increased swelling in lower extremities. The patient has also been complaining of black stools however he thinks is attributed to taking iron daily. Otherwise he denies any hematochezia. As per review medical records he developed a hematoma in his left inguinal region after his and atherectomy and was ability for this in emergency department on 03/16/17. Hematoma still there however appears to be getting smaller as per patient. The patient otherwise denies any chest pain, states has been feeling short of breath. The patient otherwise denies any fevers, chills, chest pain, diarrhea, dysuria Review of Systems As per history of present illness, other systems reviewed by me and negative Past Family Social History Past Medical History Cellulitis left foot CAD s/p previous CABG with recent NSTEMI 01/05/17 Atrial fibrillation s/p previous ablation Hx of Vtach Severe left ventricular systolic dysfunction Ischemic cardiomyopathy HTN DM COPD Dyslipidemia Depression Hypothyroidism Anemia GERD Neuropathy RLS Past Surgical History CABG x 4 2000 multiple cardiac catheterizations with PCI/stent implants, stents x 3 2005, stents x 1 2006, 2010 and 01/03/17 AICD/pacemaker Reported Medications Reported Meds & Active Scripts Active Lortab (Hydrocodone-Acetaminophen) 5-325 Mg Tab 1-2 Tab PO Q6H PRN Zofran (Ondansetron HCl) 4 Mg Tab 4 Mg PO Q6HR PRN Furosemide 40 Mg Tab 40 Mg PO DAILY Carvedilol 6.25 Mg Tab 6.25 Mg PO BID Brilinta (Ticagrelor) 90 Mg Tab 90 Mg PO BID Aspirin Low Strength (Aspirin) 81 Mg Chew 81 Mg PO DAILY Reported Cefazolin Inj (Cefazolin Sodium/Dextrose) 2 Gm/50 Ml Bagp 2 Gm IV Q8H Sodium Chloride 1 Gram Tab 1 Gm PO DAILY Florastor (Saccharomyces Boulardii) 250 Mg Cap 250 Mg PO BID Simvastatin 40 Mg Tab 40 Mg PO HS Gabapentin 100 Mg Cap 100 Mg PO TID Zetia (Ezetimibe) 10 Mg Tab 10 Mg PO HS Effexor (Venlafaxine HCl) 75 Mg Tab 75 Mg PO DAILY Nitrostat SL (Nitroglycerin) 0.4 Mg Subl 0.4 Mg SL DIRECTED PRN 1 tablet under the tongue as needed for chest pain. Repeat every 5 minutes for a total of 3 DOSES or call 911 if NO relief. Clonazepam 0.5 Mg Tab 1 Mg PO BID PRN Levothyroxine (Levothyroxine Sodium) 25 Mcg Tab 25 Mcg PO DAILY Aldactone (Spironolactone) 25 Mg Tab 25 Mg PO BIDPC Krill Oil 500 Mg Capsule 500 Mg PO BID Multivitamins (Multivitamin) 1 Each Tab.chew 1 Tab PO DAILY Pioglitazone (Pioglitazone HCl) 45 Mg Tab 45 Mg PO DAILY Losartan (Losartan Potassium) 25 Mg Tab 25 Mg PO DAILY Metformin (Metformin HCl) 500 Mg Tab 500 Mg PO BID With meals Allergies: Coded Allergies: cyclobenzaprine (Unverified Allergy, Severe, Flushing, 03/26/17) REDNESS lisinopril (Unverified Allergy, Unknown, Swelling, 03/26/17) ANGIOEDEMA Active Ordered Medications Current Medications Medications (Trade) Dose Ordered Sig/Hugo Route Start Time Stop Time Status Last Admin (NS Flush) 2 ml UNSCH PRN IV FLUSH 03/26/17 22:15 (NS Flush) 2 ml BID IV FLUSH 03/27/17 09:00 03/27/17 08:32 (Narcan Inj) 0.4 mg UNSCH PRN IV PUSH 03/26/17 22:15 (Lasix Inj) 40 mg BID@ IV PUSH 03/27/17 09:00 03/27/17 19:21 (Ancef 2 Gm Premix) 2 gm Q8H IV 03/26/17 22:15 03/27/17 13:48 (Aspirin Chew) 81 mg DAILY PO 03/27/17 13:30 03/27/17 13:46 (Coreg) 6.25 mg BID PO 03/27/17 13:30 03/27/17 13:45 (KlonoPIN) 1 mg BID PRN PO 03/27/17 12:30 (Zetia) 10 mg HS PO 03/27/17 21:00 (Neurontin) 100 mg TID PO 03/27/17 13:00 03/27/17 18:27 (Synthroid) 25 mcg DAILY@0600 PO 03/27/17 15:00 03/27/17 13:46 (Cozaar) 25 mg DAILY PO 03/28/17 09:00 (Nitrostat Sl) 0.4 mg Q5M PRN SL 03/27/17 12:30 (Aldactone) 25 mg BIDPC PO 03/27/17 18:00 03/27/17 18:27 (Brilinta) 90 mg BID PO 03/27/17 12:30 Future Hold (Pravachol) 80 mg HS PO 03/27/17 21:00 (Effexor Xr) 75 mg DAILY PO 03/27/17 13:30 03/27/17 13:46 Family History Heart disease, Mother and Brother DM, Mother Social History Quit smoking 1-1/2 year ago. Patient denies any alcohol use. Physical Exam Vital Signs Vital Signs Date Time Temp Pulse Resp B/P (MAP) Pulse Ox O2 Delivery O2 Flow Rate FiO2 03/27/17 17:18 86 03/27/17 13:00 97.8 91 15 111/64 (80) 96 03/27/17 08:28 98.2 95 12 104/59 (74) 97 03/27/17 04:00 98.1 107 20 129/81 (97) 94 03/27/17 00:30 99.3 107 20 125/86 (99) 94 03/26/17 20:29 96 18 113/59 (77) 96 Room Air Physical Exam GENERAL: This is a well-nourished, well-developed patient, in no apparent distress. SKIN: No rashes, ecchymoses or lesions. Cool and dry. HEAD: Atraumatic. Normocephalic. No temporal or scalp tenderness. EYES: Pupils equal round and reactive. Extraocular motions intact. No scleral icterus. No injection or drainage. ENT: Nose without bleeding, purulent drainage or septal hematoma. Throat without erythema, tonsillar hypertrophy or exudate. Uvula midline. Airway patent. NECK: Trachea midline. No JVD or lymphadenopathy. Supple, nontender, no meningeal signs. CARDIOVASCULAR: Regular rate and rhythm without murmurs, gallops, or rubs. RESPIRATORY: Clear to auscultation. Breath sounds equal bilaterally. No wheezes , rales, or rhonchi. GASTROINTESTINAL: Abdomen soft, non-tender, nondistended. No hepato-splenomegaly , or palpable masses. No guarding. MUSCULOSKELETAL: Extremities without clubbing, cyanosis, or edema. No joint tenderness, effusion, or edema noted. No calf tenderness. Negative Homans sign bilaterally. NEUROLOGICAL: Awake and alert. Cranial nerves II through XII intact. Motor and sensory grossly within normal limits. Five out of 5 muscle strength in all muscle groups. Normal speech. Laboratory Laboratory Tests Test 03/26/17 20:27 03/27/17 02:00 03/27/17 05:50 03/27/17 11:23 White Blood Count 12.3 11.1 Red Blood Count 3.37 3.10 Hemoglobin 9.4 8.8 8.8 9.1 Hematocrit 28.1 26.5 26.6 27.3 Mean Corpuscular Volume 83.3 85.8 Mean Corpuscular Hemoglobin 27.7 28.4 Mean Corpuscular Hemoglobin Concent 33.3 33.0 Red Cell Distribution Width 19.0 20.0 Platelet Count 367 316 Mean Platelet Volume 7.5 7.2 Neutrophils (%) (Auto) 84.4 Lymphocytes (%) (Auto) 7.8 Monocytes (%) (Auto) 6.4 Eosinophils (%) (Auto) 1.2 Basophils (%) (Auto) 0.2 Neutrophils # (Auto) 9.4 Lymphocytes # (Auto) 0.9 Monocytes # (Auto) 0.7 Eosinophils # (Auto) 0.1 Basophils # (Auto) 0.0 CBC Comment DIFF FINAL Differential Comment Blood Urea Nitrogen 10 Creatinine 0.97 Random Glucose 159 Calcium Level 8.6 Sodium Level 134 Potassium Level 3.7 Chloride Level 100 Carbon Dioxide Level 24.1 Anion Gap 10 Estimat Glomerular Filtration Rate 79 Troponin I 0.04 Test 03/27/17 13:59 03/27/17 14:57 Hemoglobin 9.1 Hematocrit 27.6 Urine Color VINICIO Urine Turbidity CLEAR Urine pH 5.5 Urine Specific [place] 1.022 Urine Protein 100 Urine Glucose (UA) NEG Urine Ketones TRACE Urine Occult Blood NEG Urine Nitrite NEG Urine Bilirubin NEG Urine Leukocyte Esterase NEG Urine RBC 0-3 Urine WBC 0-2 Urine Squamous Epithelial Cells 0-5 Microscopic Urinalysis Comment CULT NOT INDICATED Result Diagram: 03/27/17 1359 03/27/17 0550 Imaging Last Impressions Chest X-Ray 03/26/17 1849 Signed Impressions: Service Date/Time: Sunday, March 26, 2017 19:28 - CONCLUSION: 1. Mild to moderate pulmonary vascular congestion bilaterally. 2. Cardiomegaly. 3. Small left pleural effusion. MD Alfonso Vivas VTE Risk Assessment Alfonso VTE Risk Assessment: No/Low Risk (score <= 1) VTE Pharm Contraindication: Active bleeding Caprini Risk Assessment Model Point Value = 1 Point Value = 2 Point Value = 3 Point Value = 5 Age 41-60 Minor surgery BMI > 25 kg/m2 Swollen legs Varicose veins or History of unexplained or recurrent spontaneous Oral contraceptives or hormone replacement Sepsis (< 1 month) Serious lung disease, including pneumonia (< 1 month) Abnormal pulmonary function Acute myocardial infarction Congestive heart failure (< 1 month) History of inflammatory bowel disease Medical patient at bed rest Age 61-74 Arthroscopic surgery Major open surgery (> 45 min) Laparoscopic surgery (> 45 min) Malignancy Confined to bed (> 72 hours) Immobilizing plaster cast Central venous access Age >= 75 History of VTE Family history of VTE Factor V Leiden Prothrombin [id number] Lupus anticoagulant Anticardiolipin antibodies Elevated serum homocysteine Heparin-induced thrombocytopenia Other congenital or acquired thrombophilia Stroke (< 1 month) Elective arthroplasty Hip, pelvis, or leg fracture Acute spinal cord injury (< 1 month) Prophylaxis Regimen Total Risk Factor Score Risk Level Prophylaxis Regimen 0-1 Low Early ambulation 2 Moderate Order ONE of the following: *Sequential Compression Device (SCD) *Heparin 5000 units SQ BID 3-4 Higher Order ONE of the following medications: *Heparin 5000 units SQ TID *Enoxaparin/Lovenox 40 mg SQ daily (WT < 150 kg, CrCl > 30 mL/min) *Enoxaparin/Lovenox 30 mg SQ daily (WT < 150 kg, CrCl > 10-29 mL/min) *Enoxaparin/Lovenox 30 mg SQ BID (WT < 150 kg, CrCl > 30 mL/min) AND/OR *Sequential Compression Device (SCD) 5 or more Highest Order ONE of the following medications: *Heparin 5000 units SQ TID (Preferred with Epidurals) *Enoxaparin/Lovenox 40 mg SQ daily (WT < 150 kg, CrCl > 30 mL/min) *Enoxaparin/Lovenox 30 mg SQ daily (WT < 150 kg, CrCl > 10-29 mL/min) *Enoxaparin/Lovenox 30 mg SQ BID (WT < 150 kg, CrCl > 30 mL/min) AND *Sequential Compression Device (SCD) Assessment and Plan Problem List: (1) Acute on chronic systolic heart failure ICD Code: I50.23 - Acute on chronic systolic (congestive) heart failure Plan: Admit patient to medical floor Lasix 40 mg IV twice a day Seems to be improving 2-D echocardiogram done on 02/28 showed a mildly dilated left ventricle. Wall thickness is normal. The left ventricular systolic function is severely reduced with an estimated ejection fraction in the range of 20-25%. There is global hypokinesis Continue Cozaar, statin, spironolactone, aspirin, beta minal (2) Anemia ICD Code: D64.9 - Anemia, unspecified Plan: As per ED documentation the patient had a heme stool positive. I will consult GI for further recommendations. Hold pending to for now Cherry to monitor CBC Iron studies performed the previous admission on February 28 shows a low iron and percent saturation with a normal TIBC and a normal ferritin consistent with iron deficiency anemia. The patient was discharged home on iron sulfate. (3) Diabetes ICD Code: E11.9 - Type 2 diabetes mellitus without complications Plan: Patient at home on metformin and pioglitazone. I will hold those medications for now. Place on SSI with insulin NovoLog and monitor Accu-Cheks. Last hemoglobin on previous admission 6.9. 8 (4) Leukocytosis ICD Code: D72.829 - Elevated white blood cell count, unspecified Plan: Likely stress related. WBC trending down. Continue to monitor off antibiotics. There is no signs of active infection. (5) Hyponatremia ICD Code: E87.1 - Hypo-osmolality and hyponatremia Plan: Chronic hyponatremia. Mild of 133 on admission trending up slowly and 134 today. Continue to monitor BMP. Likely hypovolemic hyponatremia due to congestive heart failure. (6) Sinus tachycardia ICD Code: R00.0 - Tachycardia, unspecified Plan: EKG on admission shows a paced rhythm. EKG reviewed by me. (7) A-fib ICD Code: I48.91 - Unspecified atrial fibrillation Status: Chronic Plan: The patient is status post pacemaker implantation. EKG shows paced rhythm. Patient currently on Brillinta. (8) Diabetic foot ulcer ICD Code: E11.621 - Type 2 diabetes mellitus with foot ulcer; L97.509 - Non- pressure chronic ulcer of other part of unspecified foot with unspecified severity Plan: s/p status post revascularization of the left leg with the common femoral endarterectomy patch and superficial femoral artery balloon angioplasty Status post left great toe amputation by Podiatry. Dr. Eid. Will consult. Patient discharged on IV cefazolin 2 g IV every 8 hours with a stop date on . I will continue IV cefazolin. Assessment and Plan DVT prophylaxis: SCDs Code Status Full code Discussed Condition With Patient, RN. Physician Certification 2 Midnight Certification Type: Admission for Inpatient Services Order for Inpatient Services The services are ordered in accordance with Medicare regulations or non- Medicare payer requirements, as applicable. In the case of services not specified as inpatient-only, they are appropriately provided as inpatient services in accordance with the 2-midnight benchmark. Estimated LOS (days): 2 days is the estimated time the patient will need to remain in the hospital, assuming treatment plan goals are met and no additional complications. Post-Hospital Plan: Not yet determined Problem Qualifiers (1) Anemia: (2) Diabetes: Qualified Codes: E11.9 - Type 2 diabetes mellitus without complications Alton Granado MD Mar 27, 2017 19:25
[2017-03-27] MEDS ORDERED: DEXTROSE 50% IN WATER 50 ML VIAL(D50) IV PUSH PRN (19:45)
[2017-03-27] MEDS ORDERED: GLUCAGON 1 MG/ML VIAL OTHER PRN (19:45)
[2017-03-27] MEDS ORDERED: EZETIMIBE 10 MG TAB PO SCH (21:00)
[2017-03-27] MEDS: INSULIN ASPART SUPPLEMENTAL SCALE SQ SCH (21:00)
[2017-03-27] MEDS ORDERED: PRAVASTATIN SOD 80 MG TAB PO SCH (21:00)
[2017-03-28] VITALS: BP 89/67; PULSE 77; RESP 18; TEMP 98; O2SAT 93
[2017-03-28 04:00] VITALS: BP 113/67; PULSE 83; RESP 18; TEMP 97.9; O2SAT 94
[2017-03-28] MEDS: LEVOTHYROXINE SODIUM 25 MCG TAB PO SCH (05:39)
[2017-03-28] MEDS: ceFAZolin 2 GM/50 ML BAG IV SCH ×2 (05:39→14:01)
[2017-03-28] MEDS: FUROSEMIDE 40 MG TAB PO SCH ×2 (08:24→09:18)
[2017-03-28] MEDS: CARVEDILOL 6.25 MG TAB PO SCH (08:24)
[2017-03-28] MEDS: SPIRONOLACTONE 25 MG TAB PO SCH (08:25)
[2017-03-28 08:47] VITALS: BP 98/61; PULSE 73; RESP 16; TEMP 98; O2SAT 100
[2017-03-28] MEDS ORDERED: LOSARTAN 25 MG TAB PO SCH (09:00)
[2017-03-28] MEDS: INSULIN ASPART SUPPLEMENTAL SCALE SQ SCH ×2 (09:10→14:01)
[2017-03-28] MEDS: SODIUM CHLORIDE 0.9% FLUSH 10 ML FLUSH IV FLUSH SCH (09:10)
[2017-03-28] MEDS: ASPIRIN 81 MG CHEW TAB PO SCH (09:10)
[2017-03-28] MEDS: GABAPENTIN 100 MG CAP PO SCH ×2 (09:10→14:01)
[2017-03-28] MEDS: VENLAFAXINE HCL XR 75 MG CAP PO SCH (09:10)
--- NOTE | 2017-03-28 13:10 | HHI.FF ---
Face to Face Verification Diagnosis: (1) Diabetic foot ulcer Physical Therapy Order: Evaluate and Treat, Improve ambulation Home Health Nursing Order: Medical education Signs/symptoms of disease process Diabetic education Wound care and dressing changes I have seen patient Omar Ovalle on 03/28/17. My clinical findings support the need for the requested home health care services because: Med compliance is questionable High risk of falls I certify that my clinical findings support that this patient is homebound because: Unsteady gait/balance Nidhi Robledo MD Mar 28, 2017 13:10
[2017-03-28] MEDS ORDERED: BUMETANIDE INJ 1 MG/4 ML VIAL IV PUSH ONE (13:15)
--- NOTE | 2017-03-28 13:17 | HHI.DS ---
Discharge Summary Admission Date Mar 26, 2017 at 22:05 Discharge Date: Mar 28, 2017 Admitting Diagnosis CHF exacerbation, heme positive stool (1) Acute on chronic systolic heart failure ICD Code: I50.23 - Acute on chronic systolic (congestive) heart failure (2) Anemia ICD Code: D64.9 - Anemia, unspecified (3) Diabetes ICD Code: E11.9 - Type 2 diabetes mellitus without complications (4) Leukocytosis ICD Code: D72.829 - Elevated white blood cell count, unspecified (5) Hyponatremia ICD Code: E87.1 - Hypo-osmolality and hyponatremia (6) Sinus tachycardia ICD Code: R00.0 - Tachycardia, unspecified (7) A-fib ICD Code: I48.91 - Unspecified atrial fibrillation Status: Chronic (8) Diabetic foot ulcer ICD Code: E11.621 - Type 2 diabetes mellitus with foot ulcer; L97.509 - Non- pressure chronic ulcer of other part of unspecified foot with unspecified severity Procedures none Brief History - From Admission This is a 61-year-old male with extensive past medical history of CAD, CHF, diabetes who is status post recent left femoral endarterectomy for ischemic left great toe and left foot. The patient is currently taking Ancef 2 g every 8 hours for left foot osteomyelitis. The patient was sent by his primary care physician for evaluation of anemia of less than 7. The patient has also been complaining of black stools however he thinks is attributed to taking iron daily. Recent panendoscopy was normal. He denies any hematochezia, fevers, chills, chest pain, diarrhea, dysuria. As per review medical records he developed a hematoma in his left inguinal region after his and atherectomy and was ability for this in emergency department on 03/16/17. Hematoma still there however appears to be getting smaller as per patient. He was evaluated for this. CBC/BMP: 03/27/17 1359 03/27/17 0550 Significant Findings Laboratory Tests Test 03/26/17 19:00 03/26/17 20:27 03/27/17 02:00 03/27/17 05:50 White Blood Count 13.4 TH/MM3 (4.0-11.0) 12.3 TH/MM3 (4.0-11.0) 11.1 TH/MM3 (4.0-11.0) Red Blood Count 3.46 MIL/MM3 (4.50-5.90) 3.37 MIL/MM3 (4.50-5.90) 3.10 MIL/MM3 (4.50-5.90) Hemoglobin 9.7 GM/DL (13.0-17.0) 9.4 GM/DL (13.0-17.0) 8.8 GM/DL (13.0-17.0) 8.8 GM/DL (13.0-17.0) Hematocrit 28.9 % (39.0-51.0) 28.1 % (39.0-51.0) 26.5 % (39.0-51.0) 26.6 % (39.0-51.0) Red Cell Distribution Width 19.5 % (11.6-17.2) 19.0 % (11.6-17.2) 20.0 % (11.6-17.2) Neutrophils (%) (Auto) 88.0 % (16.0-70.0) 84.4 % (16.0-70.0) Lymphocytes (%) (Auto) 5.6 % (9.0-44.0) 7.8 % (9.0-44.0) Neutrophils # (Auto) 11.7 TH/MM3 (1.8-7.7) 9.4 TH/MM3 (1.8-7.7) Lymphocytes # (Auto) 0.8 TH/MM3 (1.0-4.8) 0.9 TH/MM3 (1.0-4.8) Prothrombin Time 13.0 SEC (9.8-11.6) Random Glucose 156 MG/DL (74-106) 159 MG/DL (74-106) Albumin 2.9 GM/DL (3.4-5.0) Aspartate Amino Transf (AST/SGOT) 14 U/L (15-37) Alanine Aminotransferase (ALT/SGPT) 7 U/L (12-78) Sodium Level 133 MEQ/L (136-145) 134 MEQ/L (136-145) Estimat Glomerular Filtration Rate 68 ML/MIN (>89) 79 ML/MIN (>89) Total Creatine Kinase 28 U/L (39-308) Troponin I 0.06 NG/ML (0.02-0.05) B-Type Natriuretic Peptide 985 PG/ML (0-100) Test 03/27/17 11:23 03/27/17 13:59 03/27/17 14:57 Hemoglobin 9.1 GM/DL (13.0-17.0) 9.1 GM/DL (13.0-17.0) Hematocrit 27.3 % (39.0-51.0) 27.6 % (39.0-51.0) Urine Color VINICIO (YELLW/STRAW) Urine Protein 100 mg/dL (NEG-TRACE) Urine Ketones TRACE mg/dL (NEG) Imaging Last Impressions Chest X-Ray 03/26/17 330 Signed Impressions: Service Date/Time: Sunday, March 26, 2017 19:28 - CONCLUSION: 1. Mild to moderate pulmonary vascular congestion bilaterally. 2. Cardiomegaly. 3. Small left pleural effusion. Thomas Acosta MD PE at Discharge Left great toe amp GENERAL: This is a well-nourished, well-developed patient, in no apparent distress. CARDIOVASCULAR: Regular rate and rhythm without murmurs, gallops, or rubs. RESPIRATORY: Clear to auscultation. Breath sounds equal bilaterally. No wheezes , rales, or rhonchi. GASTROINTESTINAL: Abdomen soft, non-tender, nondistended. Normal active bowel sounds MUSCULOSKELETAL: Extremities without clubbing, cyanosis, or edema. NEURO: Alert & Oriented x4 to person, place, time, situation. Moves all ext x4 Pt update on day of discharge Doing well No anemia, no SOB Ptn requests to go home Hospital Course Patient was monitored, There was no further evidence of anemia He was given some bumex for his congestion He was seen by Medical and nursing team No active bleeding Pt Condition on Discharge: Good Discharge Disposition: Discharge Home Discharge Time: <= 30 minutes Discharge Instructions DIET: Follow Instructions for: Diabetic Diet Activities you can perform: Regular-No Restrictions Follow up Referrals: PCP Follow-up - 1 Week Continued Medications: Aspirin (Aspirin Low Strength) 81 Mg Chew 81 MG PO DAILY for Blood Clot Prevention, #30 EA 0 Refills Carvedilol (Carvedilol) 6.25 Mg Tab 6.25 MG PO BID, #60 TAB 0 Refills Cefazolin Inj (Cefazolin Inj) 2 Gm/50 Ml Bagp 2 GM IV Q8H for Infection, BAG 0 Refills Clonazepam (Clonazepam) 0.5 Mg Tab 1 MG PO BID PRN for ANXIETY, #60 TAB 0 Refills Ezetimibe (Zetia) 10 Mg Tab 10 MG PO HS, TAB 0 Refills Furosemide (Furosemide) 40 Mg Tab 40 MG PO DAILY for diuretic, #30 TAB 0 Refills Gabapentin (Gabapentin) 100 Mg Cap 100 MG PO TID, #90 CAP 0 Refills Hydrocodone-Acetaminophen (Lortab) 5-325 Mg Tab 1-2 TAB PO Q6H PRN for PAIN, #30 TAB 0 Refills Krill Oil (Krill Oil) 500 Mg Capsule 500 MG PO BID Levothyroxine (Levothyroxine) 25 Mcg Tab 25 MCG PO DAILY for Thyroid, #30 TAB 0 Refills Losartan (Losartan) 25 Mg Tab 25 MG PO DAILY for Blood Pressure Management, #30 TAB 0 Refills Metformin (Metformin) 500 Mg Tab 500 MG PO BID for Blood Sugar Management, #90 TAB 0 Refills With meals Multivitamin (Multivitamins) 1 Each Tab.chew 1 TAB PO DAILY Nitroglycerin SL (Nitrostat SL) 0.4 Mg Subl 0.4 MG SL DIRECTED PRN for CHEST PAIN, #100 TAB.SL 0 Refills 1 tablet under the tongue as needed for chest pain. Repeat every 5 minutes for a total of 3 DOSES or call 911 if NO relief. Ondansetron (Zofran) 4 Mg Tab 4 MG PO Q6HR PRN for NAUSEA OR VOMITING, #30 TAB 0 Refills Pioglitazone (Pioglitazone) 45 Mg Tab 45 MG PO DAILY for Blood Sugar Management, #30 TAB 0 Refills Saccharomyces Boulardii (Florastor) 250 Mg Cap 250 MG PO BID for Nutritional Supplement, CAP 0 Refills Simvastatin (Simvastatin) 40 Mg Tab 40 MG PO HS for Cholesterol Management, #30 TAB 0 Refills Sodium Chloride (Sodium Chloride) 1 Gram Tab 1 GM PO DAILY for Electrolyte Replacement, TAB 0 Refills Spironolactone (Aldactone) 25 Mg Tab 25 MG PO BIDPC, #60 TAB 0 Refills Ticagrelor (Brilinta) 90 Mg Tab 90 MG PO BID for Blood Clot Prevention, #60 TAB 0 Refills Venlafaxine (Effexor) 75 Mg Tab 75 MG PO DAILY, TAB 0 Refills Nidhi Robledo MD Mar 28, 2017 13:17
[2017-03-28 13:36] VITALS: BP 100/67; PULSE 74; RESP 22; TEMP 97.8; O2SAT 98
[2017-03-28 16:52] VITALS: BP 104/63; PULSE 85; RESP 20; TEMP 97.7; O2SAT 98
--- NOTE | 2017-03-28 21:10 | EKG ---
Date Performed: 03/26/2017 Time Performed: 20:01:13 PTAGE: 61 years EKG: ELECTRONIC VENTRICULAR PACEMAKER PREVIOUS TRACING : 03/16/2017 09.35 Compared to prior tracing no significant change DOCTOR: London Aldana Interpretating Date/Time 03/28/2017 21:00:44
[2017-03-29] MEDS ORDERED: LEVA500T20 PO (10:21)
[2017-04-12] MEDS ORDERED: VANC1INJ2 IV (10:22)
[2017-04-19] MEDS ORDERED: CIPR-9 PO (09:49)
== END 2017-03-28 17:26 | disposition home or self-care (01) | DRG 292 ==
LOC: PHED 18:20 → PHEDA 22:05 → PH5A 03-27 00:24
PROVIDERS: ADMIT Hospitalist; ATTEND Hospitalist
DX: I11.0 Hypertensive heart disease with heart failure (principal); K92.1 Melena; E11.40 Type 2 diabetes mellitus with diabetic neuropathy, unspecified; E11.621 Type 2 diabetes mellitus with foot ulcer; E87.1 Hypo-osmolality and hyponatremia; M86.9 Osteomyelitis, unspecified; F32.9 Major depressive disorder, single episode, unspecified; I48.91 Unspecified atrial fibrillation; K21.9 Gastro-esophageal reflux disease without esophagitis; I25.10 Atherosclerotic heart disease of native coronary artery without angina pectoris; F41.9 Anxiety disorder, unspecified; M19.90 Unspecified osteoarthritis, unspecified site; I25.5 Ischemic cardiomyopathy; E11.69 Type 2 diabetes mellitus with other specified complication; E03.9 Hypothyroidism, unspecified; I50.23 Acute on chronic systolic (congestive) heart failure; D50.9 Iron deficiency anemia, unspecified; R00.0 Tachycardia, unspecified; E78.5 Hyperlipidemia, unspecified; L97.509 Non-pressure chronic ulcer of other part of unspecified foot with unspecified severity; Z79.82 Long term (current) use of aspirin; Z79.84 Long term (current) use of oral hypoglycemic drugs; Z95.810 Presence of automatic (implantable) cardiac defibrillator; Z95.5 Presence of coronary angioplasty implant and graft; Z95.1 Presence of aortocoronary bypass graft; I25.2 Old myocardial infarction; Z87.891 Personal history of nicotine dependence
CPT/HCPCS: 71010; 80048; 80053; 81001; 82550; 82948; 83880; 84484; 85014; 85018; 85025; 85027; 85610; 85730; 86850; 86900; 86901; 93005; 96374; 96375; C9113; J0690; J1815; J1940

== ENCOUNTER 2017-04-06 22:04 | Emergency (ER) | payer MEDICARE ==
[~2017-04-06] VITALS: Ht 177.8 cm; Wt 97.6 kg
[~2017-04-06 22:04] MED LIST changes: -ATOR1TAB18 PO; -EPIN1INJ21 IV PUSH; -EPIN1INJ21 SQ; -FERR325T20 PO; +FLOR250C PO; -GLIP5TAB8 PO; +LEVA500T20 PO; -PIOG45TA3 PO; +SIMV40TA PO; +SODI1TAB PO; -SOLU250I IV PUSH
[2017-04-06 22:10] VITALS: BP 111/59; PULSE 81; RESP 18; TEMP 97.8; O2SAT 96
[2017-04-06 22:30] VITALS: BP 110/64; PULSE 79; RESP 16; O2SAT 98
--- NOTE | 2017-04-06 22:46 | PD ---
HPI Chief Complaint: Allergic/Adverse Reaction Time Seen by Provider: 22:20 Travel History International Travel<30 days: No Contact w/Intl Traveler<30days: No Traveled to known affect area: No History of Present Illness HPI Patient is a 61-year-old male who presents to emergency room for possible allergic reaction. Patient reports that he is currently being treated for left foot osteomyelitis. Patient reports that he is being seen by Dr. Ismael Eid (podiatry) as well as Dr. Christa Ramos (infectious disease). Patient reports that he completed a full course of Ancef recently, reports that he saw his infectious disease doctor yesterday and had a PICC line placed and was supposed to start IV vancomycin today for 2-3 weeks. Patient reports that around 2109 - home RN came and started antibiotic infusion. Reports that he immediately felt chest pain or shortness of breath with this antibiotic, reports that about 100 cc/500cc of antibiotics were infused. Patient reports that he knew that something felt wrong and asked the RN to stop infusing the IV antibiotics. Patient reports that he has complete resolution of symptoms after the IV antibiotic infusions were held. Patient reports that he has no chest pain or shortness of breath at this time. Patient reports that he is completely asymptomatic at this time. Patient did call his infectious disease doctor, Dr. Christa Ramos who told him to come to the emergency room for evaluation. Reports that she did not want him to be admitted to the hospital, she would like him to be seen in the office on Sunday for change of antibiotics. Patient with no fevers or chills, no other complaints at this time. PFSH Past Medical History Hx Anticoagulant Therapy: Yes Arthritis: No Asthma: No Atrial Fibrillation: Yes (ABLATION ) Autoimmune Disease: No Blood Disorders: No Anxiety: Yes Depression: Yes Heart Rhythm Problems: Yes (afib) Cancer: No Cardiac Catheterization: Yes Cardiovascular Problems: Yes High Cholesterol: Yes Chemotherapy: No Chest Pain: Yes Congestive Heart Failure: Yes COPD: No Cerebrovascular Accident: No Coronary Artery Disease: Yes Diabetes: Yes Diminished Hearing: No Endocrine: Yes (DIABETES) Gastrointestinal Disorders: Yes (GERD) GERD: No Glaucoma: No Genitourinary: No Hepatitis: No Hiatal Hernia: No Hypertension: Yes Immune Disorder: No Implanted Vascular Access Dvce: Yes (RIGHT ARM PIC) Kidney Stones: No Musculoskeletal: No Neurologic: No Psychiatric: Yes Reproductive: No Respiratory: Yes Immunizations Current: Yes Migraines: No Myocardial Infarction: Yes (x3) Radiation Therapy: No Renal Failure: No Seizures: No Sleep Apnea: No Thyroid Disease: Yes Ulcer: No Past Surgical History Abdominal Surgery: Yes (left femoral endarterectomy 02/2017) AICD: Yes Arteriovenous Shunt: No Body Medical Devices: CARDIAC STENTS , current BIV ICD Cardiac Surgery: Yes (cabdx4 2001, pace defib 2015, cardiac ablation 2015) Coronary Artery Bypass Graft: Yes (QUAD 2001) Coronary Stent: Yes (X 7) Ear Surgery: No Endocrine Surgery: No Eye Surgery: No Genitourinary Surgery: No Gynecologic Surgery: No Insulin Pump: No Joint Replacement: No Neurologic Surgery: No Oral Surgery: Yes (TEETH REMOVED) Pacemaker: Yes Thoracic Surgery: Yes (CABG "02") Other Surgery: Yes (left great toe amputation 03/06/17) Social History Alcohol Use: No Tobacco Use: No (1 PPD; STATES RECENTLY QUIT) Substance Use: No Allergies-Medications (Allergen,Severity, Reaction): Coded Allergies: cyclobenzaprine (Unverified Allergy, Severe, Flushing, 04/06/17) REDNESS lisinopril (Unverified Allergy, Unknown, Swelling, 04/06/17) ANGIOEDEMA Reported Meds & Prescriptions Reported Meds & Active Scripts Active Lortab (Hydrocodone-Acetaminophen) 5-325 Mg Tab 1-2 Tab PO Q6H PRN Zofran (Ondansetron HCl) 4 Mg Tab 4 Mg PO Q6HR PRN Furosemide 40 Mg Tab 40 Mg PO DAILY Carvedilol 6.25 Mg Tab 6.25 Mg PO BID Brilinta (Ticagrelor) 90 Mg Tab 90 Mg PO BID Aspirin Low Strength (Aspirin) 81 Mg Chew 81 Mg PO DAILY Reported Florastor (Saccharomyces Boulardii) 250 Mg Cap 250 Mg PO BID Simvastatin 40 Mg Tab 40 Mg PO HS Gabapentin 100 Mg Cap 100 Mg PO TID Zetia (Ezetimibe) 10 Mg Tab 10 Mg PO HS Effexor (Venlafaxine HCl) 75 Mg Tab 75 Mg PO DAILY Nitrostat SL (Nitroglycerin) 0.4 Mg Subl 0.4 Mg SL DIRECTED PRN 1 tablet under the tongue as needed for chest pain. Repeat every 5 minutes for a total of 3 DOSES or call 911 if NO relief. Clonazepam 0.5 Mg Tab 1 Mg PO BID PRN Levothyroxine (Levothyroxine Sodium) 25 Mcg Tab 25 Mcg PO DAILY Aldactone (Spironolactone) 25 Mg Tab 25 Mg PO BIDPC Krill Oil 500 Mg Capsule 500 Mg PO BID Multivitamins (Multivitamin) 1 Each Tab.chew 1 Tab PO DAILY Losartan (Losartan Potassium) 25 Mg Tab 25 Mg PO DAILY Metformin (Metformin HCl) 500 Mg Tab 500 Mg PO BID With meals Review of Systems General / Constitutional: No: Fever Eyes: No: Visual changes HENT: No: Headaches Cardiovascular: Positive: Chest Pain or Discomfort Respiratory: Positive: Shortness of Breath Gastrointestinal: No: Abdominal Pain Genitourinary: No: Dysuria Musculoskeletal: No: Pain Skin: No Rash Neurologic: No: Weakness Psychiatric: No: Depression Endocrine: No: Polydipsia Hematologic/Lymphatic: No: Easy Bruising Physical Exam Narrative GENERAL: No acute distress, nontoxic SKIN: Focused skin assessment warm/dry. HEAD: Atraumatic. Normocephalic. EYES: Pupils equal and round. No scleral icterus. No injection or drainage. ENT: No nasal bleeding or discharge. Mucous membranes pink and moist. NECK: Trachea midline. No JVD. CARDIOVASCULAR: Regular rate and rhythm. No murmur appreciated. RESPIRATORY: No accessory muscle use. Clear to auscultation. Breath sounds equal bilaterally. GASTROINTESTINAL: Abdomen soft, non-tender, nondistended. Hepatic and splenic margins not palpable. MUSCULOSKELETAL: No obvious deformities. No clubbing. No cyanosis. No edema. Patient was dressings to his left foot, I'm unable to take off his dressings as patient refuses to let me examine his foot at this time, reports that he was told by Dr. Eid that he is the only one who can remove the dressings, there is no obvious drainage from dressings NEUROLOGICAL: Awake and alert. No obvious cranial nerve deficits. Motor grossly within normal limits. Normal speech. PSYCHIATRIC: Appropriate mood and affect; insight and judgment normal. Data Data Last Documented VS Vital Signs Date Time Temp Pulse Resp B/P (MAP) Pulse Ox O2 Delivery O2 Flow Rate FiO2 04/06/17 23:12 78 16 95/64 (74) 97 Room Air 04/06/17 22:10 97.8 Orders Orders Electrocardiogram (04/06/17 22:31) Ecg Monitoring (04/06/17 22:31) Oximetry (04/06/17 22:31) Chest, Pa & Lat (04/06/17 22:31) MDM Medical Decision Making Medical Screen Exam Complete: Yes Emergency Medical Condition: Yes Medical Record Reviewed: Yes Interpretation(s) EKG at 2244: ventricular paced at 77bpm, qt/qtc: 410/441, no acute st or t wave changes Vital Signs Date Time Temp Pulse Resp B/P (MAP) Pulse Ox O2 Delivery O2 Flow Rate FiO2 04/06/17 22:10 97.8 81 18 111/59 (76) 96 Differential Diagnosis Differential includes arrhythmia, ACS, drug reaction Narrative Course 61-year-old male who presents to emergency room for possible allergic reaction. Patient reports that he has chronic osteomyelitis to his left foot, reports that he has been on a course of Ancef this far. His ID doctor started him on vancomycin today. Reports that during his initial infusion of the medication, he developed chest pain and sob. Reports that symptoms only lasted a few minutes and resolved once the home RN stopped the vanco infusion. Patient reports complete resolution of symptoms at this time. Patient with no airway involvement. Patient denies any chest pain or shortness breath at this time. Vital Signs Date Time Temp Pulse Resp B/P (MAP) Pulse Ox O2 Delivery O2 Flow Rate FiO2 04/06/17 22:10 97.8 81 18 111/59 (76) 96 Vital signs are stable this time. Patient is asymptomatic with no chest pain or shortness of breath. Plan to obtain EKG as well as x-ray of the chest. Patient was placed on a cardiac technologist upon arrival to the emergency room. Plan to monitor patient. Patient reports that he will follow up with his infectious disease doctor on Sunday for change of antibiotics as discussed with Dr. Christa Ramos today. Request that he not be admitted to the hospital today as this is a chronic issue. X-ray of the chest shows moderate sized left pleural effusion and right pleural fluid similar to March 26. A copy of patient's x-ray report was given to him at discharge. Vital signs are stable, patient asymptomatic in the emergency room. Patient will follow up with his infectious disease physician on Sunday as discussed. Signs and symptoms of when to return to the emergency room was reviewed with patient detail. Diagnosis Primary Impression: Allergic reaction caused by a drug Qualified Codes: T78.40XA - Allergy, unspecified, initial encounter Additional Impression: Pleural effusion Patient Instructions: General Instructions Additional Instructions: Please follow-up with Dr. Christa Ramos on Sunday as discussed Please stop taking vancomycin Return to emergency room as needed Return to the emergency room if symptoms worsen or progress Please follow-up with Dr. Eid as scheduled Return to the Emergency Room is you develop any signs of infection including fever/chills Disposition: 01 DISCHARGE HOME Condition: Stable Billie Fisher DO Apr 06, 2017 22:46
[2017-04-06 23:12] VITALS: BP 95/64; PULSE 78; RESP 16; O2SAT 97
--- NOTE | 2017-04-06 23:25 | RADRPT ---
EXAM DATE/TIME: 04/06/2017 22:51 [facility] COMPARISON: CHEST SINGLE AP, March 26, 2017, 19:28. INDICATIONS : Shortness of breath. MEDICAL HISTORY : Myocardial infarction. Congestive heart failure. Peripheral vascular disease. Edentulous. Coronar y artery disease. Hypercholesterolemia.pneumonia. GERD. Dyspnea. Renal disease. Arthritis. Diabetes. Clotting disorder. Depression. Anxiety, Thyroid disease SURGICAL HISTORY : Pacemaker. CABG. Coronary artery stent. Angioplasty. Carotid endarterectomy. Left femoral endarterect rohit. Left great toe amputation, Blood transfusion, Cardiac ablation ENCOUNTER: Initial ACUITY: 1 day PAIN SCORE: 1/10 LOCATION: Bilateral chest FINDINGS: PA and lateral views of the chest demonstrate moderate size left pleural effusion and trace right ple ural fluid. Compressive atelectasis left lung base. No consolidation on the right. Postoperative medi an sternotomy and pacer leads present. No pneumothorax. CONCLUSION: 1. Moderate-sized left pleural effusion and trace right pleural fluid [facility] 2. Right PICC line tip in superior vena cava. Rivas Triplett MD on April 06, 2017 at 23:21 Board Certified Radiologist. This report was verified electronically.
[2017-04-06 23:36] VITALS: BP 104/61; PULSE 78; RESP 16; O2SAT 98
--- NOTE | 2017-04-07 08:28 | EKG ---
Date Performed: 04/06/2017 Time Performed: 22:44:07 PTAGE: 61 years EKG: ELECTRONIC VENTRICULAR PACEMAKER ABNORMAL RHYTHM ECG PREVIOUS TRACING : 03/26/2017 20.01 No significant change from previous tracing noted. DOCTOR: Austyn Stallworth Interpretating Date/Time 04/07/2017 08:27:41
[2017-04-12] MEDS ORDERED: VANC1INJ2 IV (10:22)
[2017-04-19] MEDS ORDERED: CIPR-9 PO (09:49)
== END 2017-04-06 23:57 | disposition home or self-care (01) ==
LOC: PHED 22:04
DX: T78.40XA Allergy, unspecified, initial encounter (principal); I11.0 Hypertensive heart disease with heart failure; E07.9 Disorder of thyroid, unspecified; E11.9 Type 2 diabetes mellitus without complications; E78.00 Pure hypercholesterolemia, unspecified; I25.10 Atherosclerotic heart disease of native coronary artery without angina pectoris; I50.9 Heart failure, unspecified; I25.2 Old myocardial infarction; I73.9 Peripheral vascular disease, unspecified; Z95.0 Presence of cardiac pacemaker; Z95.1 Presence of aortocoronary bypass graft; Z95.5 Presence of coronary angioplasty implant and graft; Z89.412 Acquired absence of left great toe
CPT/HCPCS: 71020; 93005

== ENCOUNTER 2017-04-27 13:53 | Day surgery (SDC) | payer MEDICARE ==
[~2017-04-27 13:53] MED LIST changes: -CEFA2SOL IV; +CIPR-9 PO; -LEVA500T20 PO; -SODI1TAB PO; +VANC1INJ2 IV
[2017-04-27 14:09] VITALS: BP 127/78; PULSE 85; RESP 20; TEMP 98.1; O2SAT 97
[2017-04-27] MEDS ORDERED: FERR140T PO (14:15)
[2017-04-27 15:45] VITALS: BP 110/58; PULSE 86; RESP 18; TEMP 98.1; O2SAT 96
--- NOTE | 2017-04-27 15:49 | PD.RAD ---
Radiology Post PICC Prog Note Pre Procedure Diagnosis: (1) Occlusion of peripherally inserted central catheter (PICC) line (2) Sepsis (3) Cellulitis Post Procedure Diagnosis: (1) Occlusion of peripherally inserted central catheter (PICC) line (2) Sepsis (3) Cellulitis Procedure: Right PICC line replacement Procedure Date: Apr 27, 2017 Supervising Radiologist Ben England Proceduralist/Assist: RT Braden(R)() Device Side: Right [place]an: 4 single lumen cm: 41 Catheter: Power PICC Plan of Activity Patient to Unit: ROPU Patient Condition: Good PICC line can be used immediately Ben England MD Apr 27, 2017 15:49
[2017-04-27] MEDS ORDERED: SODIUM CHLORIDE 0.9% FLUSH 10 ML FLUSH IVF PRN ×2 (16:00)
--- NOTE | 2017-04-27 16:24 | RADRPT ---
EXAM DATE/TIME: 04/27/2017 15:10 [facility] COMPARISON: No previous studies available for comparison. INDICATIONS : Patient with left foot infection in need of PICC line exchange for antibiotic treatment. MEDICAL HISTORY : 1.Left foot infection 2.PVD 3.HTN 4.COPD 5.High cholesterol 6.Depression 7.DM 8.CAD 9.AFIB 10.Cardiomyopathy SURGICAL HISTORY : 1.CABG 2.AZ 3.Pacer/Defib 4.Great toe amputation- osteomyelitis ENCOUNTER: Initial ACUITY: 1 month PAIN SCORE: 0/10 FLUORO TIME: 0.3 minutes IMAGE SERIES: 1 DEVICE(S): 1.) 4 [place]ian single lumen 41 cm Xcela Power PICC PROCEDURE : 1. Fluoroscopic guidance. 2. Fluoroscopic guided central venous Power PICC line replacement. The risks, benefits and alternatives to the procedure were explained and verbal and written consent w as obtained. The arm was prepped in sterile fashion. Full sterile technique was used, including cap , mask, sterile gloves and gown and a large sterile sheet. Hand hygiene and 2% chlorhexidine prep wa s utilized per protocol for cutaneous antisepsis with appropriate dry time for site. The skin and quan bcutaneous tissues were infiltrated with local anesthetic solution. Under direct fluoroscopic guidance the previously placed PICC line was removed over a guidewire and a fresh Power Injectable PICC line was cut to prescribed length and positioned with tip at the cavoatr ial junction level. The line was flushed and secured per protocol. CONCLUSION: 1. Uncomplicated central venous Power PICC line replacement. 2. The PICC line can be used immediately. Ben England MD on April 27, 2017 at 16:23 Board Certified Radiologist. This report was verified electronically.
[2017-04-28] MEDS ORDERED: SODIUM CHLORIDE 0.9% FLUSH 10 ML FLUSH IVF SCH (09:00)
== END 2017-04-27 15:50 | disposition home or self-care (01) ==
LOC: HROP 13:53 → HRIP 13:54 → HROP 15:50
PROVIDERS: ATTEND Specialist
DX: Z45.2 Encounter for adjustment and management of vascular access device (principal); M86.8X7 Other osteomyelitis, ankle and foot; I48.91 Unspecified atrial fibrillation; I42.9 Cardiomyopathy, unspecified; I25.10 Atherosclerotic heart disease of native coronary artery without angina pectoris; I10 Essential (primary) hypertension; I73.9 Peripheral vascular disease, unspecified; E11.9 Type 2 diabetes mellitus without complications; J44.9 Chronic obstructive pulmonary disease, unspecified; Z95.1 Presence of aortocoronary bypass graft
CPT/HCPCS: 36584; 77001; C1751; J1642

== ENCOUNTER 2017-07-11 10:35 | Inpatient (IN) | payer MEDICARE ==
[~2017-07-11] VITALS: Ht 177.8 cm; Wt 97.0 kg
[~2017-07-11 10:35] MED LIST changes: +DAKI0.12 TOPICAL; +DOXY100C PO; +EZET10 PO; +FERR140T PO; +HYDR-3580 PO; -VANC1INJ2 IV; -ZETI10TA5 PO
[2017-07-11 10:37] VITALS: BP 128/66; PULSE 92; RESP 18; TEMP 98; O2SAT 97
[2017-07-11] MEDS ORDERED: GLIP5TAB8 PO (11:01)
[2017-07-11] MEDS ORDERED: GENT0.1O2 TOPICAL (11:01)
[2017-07-11] MEDS ORDERED: ZOFR8TAB PO (11:01)
[2017-07-11 11:13] VITALS: BP 114/58; PULSE 79; RESP 18; O2SAT 99
[2017-07-11 11:41] LABS: AUTOMATED NEUTROPHIL # 11.4 TH/MM3 (1.8-7.7); BASOPHIL # 0.1 TH/MM3 (0-0.2); BASOPHIL % 0.6 % (0.0-2.0); EOSINOPHIL # 0.2 TH/MM3 (0-0.4); EOSINOPHIL % 1.6 % (0.0-4.0); HEMATOCRIT 28.8 % (39.0-51.0); HEMOGLOBIN 9.5 GM/DL (13.0-17.0); LYMPH % 7.1 % (9.0-44.0); LYMPHOCYTE # 0.9 TH/MM3 (1.0-4.8); MEAN CELL VOLUME 80.4 FL (80.0-100.0); MEAN CORPUSCULAR HEMOGLOBIN 26.6 PG (27.0-34.0); MEAN CORPUSCULAR HGB CONC 33.1 % (32.0-36.0); MEAN PLATELET VOLUME 7.2 FL (7.0-11.0); MONOCYTE # 0.7 TH/MM3 (0-0.9); NEUT % 85.7 % (16.0-70.0); PLATELET COUNT 423 TH/MM3 (150-450); RED BLOOD COUNT 3.58 MIL/MM3 (4.50-5.90); RED CELL DISTRIBUTION WIDTH 16.2 % (11.6-17.2); WHITE BLOOD COUNT 13.2 TH/MM3 (4.0-11.0)
--- NOTE | 2017-07-11 11:46 | PD ---
HPI Chief Complaint: Skin Problem Time Seen by Provider: 11:03 Travel History International Travel<30 days: No Contact w/Intl Traveler<30days: No Traveled to known affect area: No History of Present Illness HPI 62-year-old man, presents to the emergency department with left foot wound. He' s been having this doctor by Dr. Awad. Once been ongoing since he had a foot amputation toe amputation with Dr. Weber previously. He's been followed by infectious disease. He's had worsening pain swelling redness in the leg, as well as increased drainage from the wound, subjective fevers. He went for repeat visit with Dr. Awad today. There is now expose bone. He's been on antibiotics including clindamycin and doxycycline and gentamicin ointment without improvement. Sent to the ED from her office for further evaluation and probable surgical intervention. History Past Medical History Narrative Medical PAD Diabetes Heart disease, CHF History of A. fib Social History Alcohol Use: No Tobacco Use: No (1 PPD; STATES RECENTLY QUIT) Allergies-Medications (Allergen,Severity, Reaction): Coded Allergies: cyclobenzaprine (Verified Allergy, Severe, Flushing, 07/11/17) REDNESS lisinopril (Verified Allergy, Unknown, Swelling, 07/11/17) ANGIOEDEMA Reported Meds & Prescriptions Reported Meds & Active Scripts Active Dakins Solution Quarter Strength Topical (Sodium Hypochlorite Topical) 0.125% Soln 473 Ml TOPICAL BID Furosemide 40 Mg Tab 40 Mg PO DAILY Carvedilol 6.25 Mg Tab 6.25 Mg PO BID Brilinta (Ticagrelor) 90 Mg Tab 90 Mg PO BID Aspirin Low Strength (Aspirin) 81 Mg Chew 81 Mg PO DAILY Reported Cipro (Ciprofloxacin HCl) 500 Mg Tab 500 Mg PO BID Doxycycline Hyclate 100 Mg Cap 100 Mg PO BID Hydrocodone-Acetamin 7.5-325 (Hydrocodone/Acetaminophen) 7.5 Mg-325 Mg Tablet 7.5 Mg PO DAILY Ferrous Sulfate ER (Ferrous Sulfate) 140 Mg (45 Mg Iron) Tab 65 Mg PO DAILY Simvastatin 40 Mg Tab 40 Mg PO HS Gabapentin 100 Mg Cap 100 Mg PO QID Zetia (Ezetimibe) 10 Mg Tab 10 Mg PO HS Effexor (Venlafaxine HCl) 75 Mg Tab 75 Mg PO DAILY Nitrostat SL (Nitroglycerin) 0.4 Mg Subl 0.4 Mg SL DIRECTED PRN 1 tablet under the tongue as needed for chest pain. Repeat every 5 minutes for a total of 3 DOSES or call 911 if NO relief. Clonazepam 0.5 Mg Tab 1 Mg PO BID PRN Aldactone (Spironolactone) 25 Mg Tab 25 Mg PO BIDPC Krill Oil 500 Mg Capsule 500 Mg PO BID Losartan (Losartan Potassium) 25 Mg Tab 25 Mg PO DAILY Metformin (Metformin HCl) 500 Mg Tab 500 Mg PO BID With meals Review of Systems Except as stated in HPI: all other systems reviewed are Neg Physical Exam Narrative GENERAL: 60 year-old man, chronically ill-appearing, nontoxic. SKIN: Focused skin assessment warm/dry. HEAD: Atraumatic. Normocephalic. EYES: Pupils equal and round. No scleral icterus. No injection or drainage. ENT: No nasal bleeding or discharge. Mucous membranes pink and moist. NECK: Trachea midline. No JVD. CARDIOVASCULAR: Regular rate and rhythm. No murmur appreciated. RESPIRATORY: No accessory muscle use. Clear to auscultation. Breath sounds equal bilaterally. GASTROINTESTINAL: Abdomen soft, non-tender, nondistended. Hepatic and splenic margins not palpable. MUSCULOSKELETAL: Focused examination left foot reveals status post amputation, there is a large wound on the distal foot, open, with exposed soft tissue and bone. Some purulent drainage with some necrotic tissue. NEUROLOGICAL: Awake and alert. No obvious cranial nerve deficits. Motor grossly within normal limits. Normal speech. PSYCHIATRIC: Appropriate mood and affect; insight and judgment normal. Data Data Last Documented VS Vital Signs Date Time Temp Pulse Resp B/P (MAP) Pulse Ox O2 Delivery O2 Flow Rate FiO2 07/11/17 11:13 79 18 114/58 (76) 99 Room Air 07/11/17 10:37 98.0 Orders Orders Complete Blood Count With Diff (07/11/17 11:21) Comprehensive Metabolic Panel (07/11/17 11:21) Blood Culture (07/11/17 11:21) Westergren Sedimentation Rate (07/11/17 11:21) C-Reactive Protein (Crp) (07/11/17 11:21) Iv Access Insert/Monitor (07/11/17 11:21) Foot, Limited (2vws) (07/11/17 ) Mri Foot W&W/O Contrast (07/11/17 ) Us Leg Venous Doppler (07/11/17 ) Us Leg Hematoma/Pseudoaneurysm (07/11/17 ) Hydromorphone Pf Inj (Dilaudid Pf Inj) (07/11/17 12:30) Admit Order (Ed Use Only) (07/11/17 ) Labs Laboratory Tests Test 07/11/17 11:25 White Blood Count 13.2 TH/MM3 Red Blood Count 3.58 MIL/MM3 Hemoglobin 9.5 GM/DL Hematocrit 28.8 % Mean Corpuscular Volume 80.4 FL Mean Corpuscular Hemoglobin 26.6 PG Mean Corpuscular Hemoglobin Concent 33.1 % Red Cell Distribution Width 16.2 % Platelet Count 423 TH/MM3 Mean Platelet Volume 7.2 FL Neutrophils (%) (Auto) 85.7 % Lymphocytes (%) (Auto) 7.1 % Monocytes (%) (Auto) 5.0 % Eosinophils (%) (Auto) 1.6 % Basophils (%) (Auto) 0.6 % Neutrophils # (Auto) 11.4 TH/MM3 Lymphocytes # (Auto) 0.9 TH/MM3 Monocytes # (Auto) 0.7 TH/MM3 Eosinophils # (Auto) 0.2 TH/MM3 Basophils # (Auto) 0.1 TH/MM3 CBC Comment DIFF FINAL Differential Comment Erythrocyte Sedimentation Rate GREATER THAN 140 mm/hr Blood Urea Nitrogen 24 MG/DL Creatinine 1.27 MG/DL Random Glucose 361 MG/DL Total Protein 8.1 GM/DL Albumin 2.8 GM/DL Calcium Level 8.9 MG/DL Alkaline Phosphatase 90 U/L Aspartate Amino Transf (AST/SGOT) 26 U/L Alanine Aminotransferase (ALT/SGPT) 38 U/L Total Bilirubin 0.2 MG/DL Sodium Level 129 MEQ/L Potassium Level 4.8 MEQ/L Chloride Level 98 MEQ/L Carbon Dioxide Level 22.7 MEQ/L Anion Gap 8 MEQ/L Estimat Glomerular Filtration Rate 57 ML/MIN C-Reactive Protein 7.18 MG/DL [facility] Medical Decision Making Medical Screen Exam Complete: Yes Emergency Medical Condition: Yes Interpretation(s) LABS: CBC remarkable for mild leukocytosis. Mild anemia. Sedimentation rate 140 CMP unremarkable. Glucose 261 CRP 7.18 X-ray suggestive lasting myelitis Ultrasound shows no DVT but does show a pseudoaneurysm. Differential Diagnosis Osteomyelitis, DVT, cellulitis, other Narrative Course Medical decision-making 62-year-old man with worsening chronic wound to the left foot, progressive despite antibiotics and aggressive outpatient wound care. Some local edema and swelling of the leg. We'll check ultrasound for DVT. Check labs. Likely admission for podiatry evaluation. MRI. Diagnosis Primary Impression: Osteomyelitis Adair Prado MD Jul 11, 2017 11:46
--- NOTE | 2017-07-11 11:52 | RADRPT ---
EXAM DATE/TIME: 07/11/2017 11:37 [facility] COMPARISON: No previous studies available for comparison. INDICATIONS : Inflammation. MEDICAL HISTORY : Diabetes mellitus type II. SURGICAL HISTORY : left foot amputation 6 mos ago. ENCOUNTER: Initial ACUITY: 4 - 6 months PAIN SCORE: Non-responsive. LOCATION: Left foot FINDINGS: Osteomyelitis involving the distal second metatarsal, distal first metatarsal, base of proximal phala nx second toe. Extensive vascular calcification noted. CONCLUSION: Osteomyelitis as described above. Ronny Moreno MD FACR on July 11, 2017 at 11:49 Board Certified Radiologist. This report was verified electronically.
[2017-07-11 12:06] LABS: ALBUMIN 2.8 GM/DL (3.4-5.0); ALT (GPT) 38 U/L (12-78); AST (GOT) 26 U/L (15-37); BICARBONATE 22.7 MEQ/L (21.0-32.0); BLOOD UREA NITROGEN 24 MG/DL (7-18); C-REACTIVE PROTEIN 7.18 MG/DL (0.00-0.30); CALCIUM 8.9 MG/DL (8.5-10.1); CHLORIDE 98 MEQ/L (98-107); CREATININE 1.27 MG/DL (0.60-1.30); GLOMERULAR FILTRATION RATE 57 ML/MIN (>89); GLUCOSE,RANDOM 361 MG/DL (74-106); SODIUM (NA) 129 MEQ/L (136-145)
[2017-07-11 12:08] LABS: ALKALINE PHOSPHATASE 90 U/L (45-117); TOTAL BILIRUBIN ADULT 0.2 MG/DL (0.2-1.0); TOTAL PROTEIN 8.1 GM/DL (6.4-8.2)
[2017-07-11] MEDS ORDERED: HYDROmorphone HCL PF 2 MG/ML VIAL IVS ONE (12:30)
--- NOTE | 2017-07-11 12:57 | RADRPT ---
EXAM DATE/TIME: 07/11/2017 12:11 [facility] COMPARISON: No previous studies available for comparison. INDICATIONS : Left lower leg pain. MEDICAL HISTORY : Diabetic. CAD. NV. Non healing wound left foot. SURGICAL HISTORY : Pacemaker. CABG Left leg arterial surgery. Cardiac ablation. Cardiac stents. ENCOUNTER: Initial ACUITY: 1 day PAIN SCORE: 10/10 LOCATION: Left leg. TECHNIQUE: Venous ultrasound of the leg was performed from the inguinal ligament to the proximal calf. Real-mera e, color Doppler and spectral tracing, compression and augmentation techniques were used. FINDINGS: There is normal compressibility of the deep venous system from the inguinal region to the proximal ca lf. No echogenic clot is seen in the lumen of the common femoral, femoral, popliteal, and posterior tibial veins. There is a normal response of the venous system to proximal and distal augmentation an d respiration. CONCLUSION: No evidence of deep venous thrombosis of the left lower extremity. Thomas Acosta MD on July 11, 2017 at 12:52 Board Certified Radiologist. This report was verified electronically.
--- NOTE | 2017-07-11 12:59 | RADRPT ---
EXAM DATE/TIME: 07/11/2017 12:11 [facility] COMPARISON: No previous studies available for comparison. INDICATIONS : Left groin mass since left femoral endarterectomy February 2017. MEDICAL HISTORY : CAD. [place]. Diabetic. SURGICAL HISTORY : Left femoral endarterectomy. Pacemaker. CABG. Cardiac stents. Cardiac ablation. ENCOUNTER: Initial ACUITY: 4-6 months PAIN SCORE: 10/10 LOCATION: Left leg. AREA EVALUATED: Left groin mass. FINDINGS: There is a 5.7 x 6.7 x 7.1 cm pseudoaneurysm in the left inguinal region. There is some thrombus with in the aneurysm. The neck measures about 0.15 cm wide and 0.5 cm thick. CONCLUSION: 1. Positive for 5.7 x 6.7 x 7.1 cm pseudoaneurysm in the left inguinal region. Rivas Triplett MD on July 11, 2017 at 12:56 Board Certified Radiologist. This report was verified electronically.
--- NOTE | 2017-07-11 13:44 | HHI.HP ---
[facility] Service Family Medicine Primary Care Physician Gerhard Lerner MD Admission Diagnosis osteomyelitis Diagnoses: Chief Complaint: left foot wound International Travel<30 Days: No Contact w/Intl Traveler<30days: No History of Present Illness Mr. Ovalle is a 62-year-old male with history of diabetes, CHF, peripheral vascular disease who presents today with left foot wound. He had his left hallux amputated 6 months ago, and his anesthesiologist was initially Dr. Eid, but has now switched to Dr. Awad. He was sent over from clinic today for concerns about osteomyelitis. He states, the wound was healing well up until about 2 weeks ago. He said he started having swelling in the lower leg and worsening erythema. Also started having some drainage from his left foot that was foul-smelling and some bleeding as well. He went to see an infectious disease, Dr. Ramos, who prescribed ciprofloxacin and doxycycline, started on 07/03, and took a wound culture as well. He states in the last week, he has had a fever at home up to 103. Since the ambulance was started, he states the drainage remained stable, improving foul smell. Leg swelling has gone down as well. He was on IV antibiotics after his surgery for a couple months, but had been off for 6 weeks. He has been receiving care at the wound care clinic, including hyperbaric oxygen treatment. Otherwise, he reports doing well. Denies any nausea/vomiting, diarrhea. Tolerating oral intake. No chest pain, SOB. Has chronic neuropathy from diabetes. Of note, does have significant peripheral vascular disease. He did have a femoral endarterectomy in February as well and has since had a lump in his left groin from the surgery. (Sal Haro MD, R2) Review of Systems Constitutional: COMPLAINS OF: Fever, DENIES: Weight gain, Weight loss, Chills, Dizziness, Night Sweats Ears, nose, mouth, throat: DENIES: Hearing loss, Throat pain, Sinus Pain Respiratory: DENIES: Cough, Sputum production, Shortness of breath Cardiovascular: COMPLAINS OF: Lower Extremity Edema, DENIES: Chest pain, Palpitations Gastrointestinal: DENIES: Abdominal pain, Black stools, Bloody stools, Constipation, Diarrhea, Nausea, Vomiting Genitourinary: DENIES: Urgency, Hematuria, Dysuria Musculoskeletal: COMPLAINS OF: Joint pain, Joint Swelling, DENIES: Back pain, Neck pain Integumentary: DENIES: Abnormal pigmentation, Rash Hematologic/lymphatic: DENIES: Bruising, Lymphadenopathy Neurologic: DENIES: Headache, Seizures Psychiatric: DENIES: Anxiety, Confusion, Mood changes, Depression (Sal Haro MD, R2) Past Family Social History Past Medical History PAD DM CHF Afib Past Surgical History CABG-2002 Multiple cardiac stents AICD-2015 (CHF) Partial endardertectomy on left (02/2017) Left hallux amputation (02/2017) Cardiac ablation Reported Medications Reported Meds & Active Scripts Active Dakins Solution Quarter Strength Topical (Sodium Hypochlorite Topical) 0.125% Soln 473 Ml TOPICAL BID Furosemide 40 Mg Tab 40 Mg PO DAILY Carvedilol 6.25 Mg Tab 6.25 Mg PO BID Brilinta (Ticagrelor) 90 Mg Tab 90 Mg PO BID Aspirin Low Strength (Aspirin) 81 Mg Chew 81 Mg PO DAILY Reported Cipro (Ciprofloxacin HCl) 500 Mg Tab 500 Mg PO BID Doxycycline Hyclate 100 Mg Cap 100 Mg PO BID Hydrocodone-Acetamin 7.5-325 (Hydrocodone/Acetaminophen) 7.5 Mg-325 Mg Tablet 7.5 Mg PO DAILY (BID) Ferrous Sulfate ER (Ferrous Sulfate) 140 Mg (45 Mg Iron) Tab 65 Mg PO DAILY Simvastatin 40 Mg Tab 40 Mg PO HS Gabapentin 100 Mg Cap 100 Mg PO QID Zetia (Ezetimibe) 10 Mg Tab 10 Mg PO HS Effexor (Venlafaxine HCl) 75 Mg Tab 75 Mg PO DAILY Nitrostat SL (Nitroglycerin) 0.4 Mg Subl 0.4 Mg SL DIRECTED PRN 1 tablet under the tongue as needed for chest pain. Repeat every 5 minutes for a total of 3 DOSES or call 911 if NO relief. Clonazepam 0.5 Mg Tab 1 Mg PO BID PRN Aldactone (Spironolactone) 25 Mg Tab 25 Mg PO BIDPC Krill Oil 500 Mg Capsule 500 Mg PO BID Losartan (Losartan Potassium) 25 Mg Tab 25 Mg PO DAILY Metformin (Metformin HCl) 500 Mg Tab 500 Mg PO BID With meals Glipizide 5mg daily (Sal Haro MD, R2) Allergies: Coded Allergies: cyclobenzaprine (Verified Allergy, Severe, Flushing, 07/11/17) REDNESS lisinopril (Verified Allergy, Unknown, Swelling, 07/11/17) ANGIOEDEMA Active Ordered Medications Active Medications Hydromorphone HCl (Dilaudid Pf Inj) 2 mg ONCE ONCE IVS Last administered on 07/11at 12:38; Admin Dose 2 MG; Start 07/11/17 at 12:30; Stop 07/11/17 at 12:31; Status DC Family History Father-Heart disease, Mother-DM, arthritis; Brother-lung cancer; Sister-throat cancer Social History On disability Tobacco: quit 5 months ago, smoked 1 PPD for 50y Alcohol use: denies Illicit drug use: denies (Sal Haro MD, R2) Physical Exam Vital Signs Vital Signs Date Time Temp Pulse Resp B/P (MAP) Pulse Ox O2 Delivery O2 Flow Rate FiO2 07/11/17 11:13 79 18 114/58 (76) 99 Room Air 07/11/17 10:37 98.0 92 18 128/66 (86) 97 Room Air Physical Exam GENERAL: This is a well-nourished, well-developed patient, in no apparent distress. SKIN: Cool and dry. HEAD: Atraumatic. Normocephalic. EYES: Pupils equal round and reactive. Extraocular motions intact. No scleral icterus. No injection or drainage. ENT: Throat without erythema, tonsillar hypertrophy or exudate. Uvula midline. Airway patent. NECK: Trachea midline. No JVD or lymphadenopathy. Supple, nontender. CARDIOVASCULAR: Regular rate and rhythm without murmurs, gallops, or rubs. RESPIRATORY: Clear to auscultation. Breath sounds equal bilaterally. No wheezes , rales, or rhonchi. GASTROINTESTINAL: Abdomen soft, non-tender, nondistended. No guarding. Left groin bulge present without tenderness. MUSCULOSKELETAL: Right lower extremity without lesions or wounds. Left foot s/p hallux amputation. Large wound over distal/medial foot open with soft tissue and bone visible. Purulent and serosanguineous drainage. NEUROLOGICAL: Awake and alert. Motor and sensory grossly within normal limits. Normal speech. Laboratory Laboratory Tests Test 07/11/17 11:25 White Blood Count 13.2 Red Blood Count 3.58 Hemoglobin 9.5 Hematocrit 28.8 Mean Corpuscular Volume 80.4 Mean Corpuscular Hemoglobin 26.6 Mean Corpuscular Hemoglobin Concent 33.1 Red Cell Distribution Width 16.2 Platelet Count 423 Mean Platelet Volume 7.2 Neutrophils (%) (Auto) 85.7 Lymphocytes (%) (Auto) 7.1 Monocytes (%) (Auto) 5.0 Eosinophils (%) (Auto) 1.6 Basophils (%) (Auto) 0.6 Neutrophils # (Auto) 11.4 Lymphocytes # (Auto) 0.9 Monocytes # (Auto) 0.7 Eosinophils # (Auto) 0.2 Basophils # (Auto) 0.1 CBC Comment DIFF FINAL Differential Comment Erythrocyte Sedimentation Rate GREATER THAN 140 Blood Urea Nitrogen 24 Creatinine 1.27 Random Glucose 361 Total Protein 8.1 Albumin 2.8 Calcium Level 8.9 Alkaline Phosphatase 90 Aspartate Amino Transf (AST/SGOT) 26 Alanine Aminotransferase (ALT/SGPT) 38 Total Bilirubin 0.2 Sodium Level 129 Potassium Level 4.8 Chloride Level 98 Carbon Dioxide Level 22.7 Anion Gap 8 Estimat Glomerular Filtration Rate 57 C-Reactive Protein 7.18 Date/Time Source Procedure Growth Status 07/11/17 11:25 Blood Peripheral Aerobic Blood Culture Pending Received 07/11/17 11:25 Blood Peripheral Anaerobic Blood Culture Pending Received (Sal Haro MD, R2) Result Diagram: 07/11/17 1125 07/11/17 1125 Imaging Last Impressions Lower Extremity Ultrasound 07/11/17 0000 Signed Impressions: Service Date/Time: Tuesday, July 11, 2017 12:11 - CONCLUSION: 1. Positive for 5.7 x 6.7 x 7.1 cm pseudoaneurysm in the left inguinal region. Rivas Triplett MD Foot X-Ray 07/11/17 0000 Signed Impressions: Service Date/Time: Tuesday, July 11, 2017 11:37 - CONCLUSION: Osteomyelitis as described above. Ronny Moreno MD FACR (Sal Haro MD, R2) Caprini VTE Risk Assessment Caprini VTE Risk Assessment: Mod/High Risk (score >= 2) Caprini Risk Assessment Model Point Value = 1 Point Value = 2 Point Value = 3 Point Value = 5 Age 41-60 Minor surgery BMI > 25 kg/m2 Swollen legs Varicose veins or History of unexplained or recurrent spontaneous Oral contraceptives or hormone replacement Sepsis (< 1 month) Serious lung disease, including pneumonia (< 1 month) Abnormal pulmonary function Acute myocardial infarction Congestive heart failure (< 1 month) History of inflammatory bowel disease Medical patient at bed rest Age 61-74 Arthroscopic surgery Major open surgery (> 45 min) Laparoscopic surgery (> 45 min) Malignancy Confined to bed (> 72 hours) Immobilizing plaster cast Central venous access Age >= 75 History of VTE Family history of VTE Factor V Leiden Prothrombin [id number] Lupus anticoagulant Anticardiolipin antibodies Elevated serum homocysteine Heparin-induced thrombocytopenia Other congenital or acquired thrombophilia Stroke (< 1 month) Elective arthroplasty Hip, pelvis, or leg fracture Acute spinal cord injury (< 1 month) Prophylaxis Regimen Total Risk Factor Score Risk Level Prophylaxis Regimen 0-1 Low Early ambulation 2 Moderate Order ONE of the following: *Sequential Compression Device (SCD) *Heparin 5000 units SQ BID 3-4 Higher Order ONE of the following medications: *Heparin 5000 units SQ TID *Enoxaparin/Lovenox 40 mg SQ daily (WT < 150 kg, CrCl > 30 mL/min) *Enoxaparin/Lovenox 30 mg SQ daily (WT < 150 kg, CrCl > 10-29 mL/min) *Enoxaparin/Lovenox 30 mg SQ BID (WT < 150 kg, CrCl > 30 mL/min) AND/OR *Sequential Compression Device (SCD) 5 or more Highest Order ONE of the following medications: *Heparin 5000 units SQ TID (Preferred with Epidurals) *Enoxaparin/Lovenox 40 mg SQ daily (WT < 150 kg, CrCl > 30 mL/min) *Enoxaparin/Lovenox 30 mg SQ daily (WT < 150 kg, CrCl > 10-29 mL/min) *Enoxaparin/Lovenox 30 mg SQ BID (WT < 150 kg, CrCl > 30 mL/min) AND *Sequential Compression Device (SCD) (Sal Haro MD, R2) Assessment and Plan Assessment and Plan A 62-year-old male with history of diabetes, peripheral vascular disease, chronic wound presents with osteomyelitis of left foot. Admit for surgery and IV antibiotics. Code Status Full Discussed Condition With Dr. Prado (Sal Haro MD, R2) Problem List: (1) Osteomyelitis ICD Codes: M86.9 - Osteomyelitis, unspecified Status: Acute Plan: History of hallux amputation February due to osteomyelitis now with chronic wound. Foot xray: Osteomyelitis involving the distal second metatarsal, distal first metatarsal, base of proximal phalanx second toe. Extensive vascular calcification noted. ESR>140. WBC 13.2. CRP 7.18 Vitals stable. Afebrile MRI pending -Vancomycin IV started-pharmacy consulted -Cefepime 2g q12H -Wound culture -Blood cultures pending -Consult podiatry-appreciate recs -NPO after midnight for possible surgical intervention -PT/OT -Continue home gabapentin -[place], morphine PRN pain (2) PVD (peripheral vascular disease) ICD Codes: I73.9 - Peripheral vascular disease, unspecified Status: Chronic Plan: History of peripheral vascular disease with femoral endarterectomy earlier this year in February. Has had bulge at site of surgery since then. Ultrasound: pseudoaneurysm in the left inguinal region. -Consult vascular surgery for recs -Continue home Brilinta -Monitor clinically (3) DM (diabetes mellitus) ICD Codes: E11.9 - Type 2 diabetes mellitus without complications Status: Chronic Plan: Hold home metformin and glipizide -Low dose sliding scale insulin -Regular accuchecks (4) CHF (congestive heart failure) ICD Codes: I50.9 - Heart failure, unspecified Status: Chronic Plan: History of CHF with AICD placement and CABG in the past -Continue home meds: lasix, spironolactone, coreg -Monitor vitals -Consider cardiology consult if worsening clinically (5) Anemia ICD Codes: D64.9 - Anemia, unspecified Plan: Hb of 9.5 on admission. No signs of bleeding. Hgb of 9.1 three months ago. No signs of active bleeding -Continue to monitor -Daily CBCs (6) Depression ICD Codes: F32.9 - Major depressive disorder, single episode, unspecified Status: Chronic Plan: Continue home Effexor Clonazepam PRN (7) FEN Status: Acute Plan: Fluids: PO, limit fluids due to CHF Electrolytes: Sodium 129, monitor & replace PRN Nutrition: heart healthy diet, NPO after midnight DVT ppx: SCDs, hold chemoppx for possible surgery (Sal Haro MD, R2) Problem List: (1) Osteomyelitis ICD Codes: M86.9 - Osteomyelitis, unspecified Status: Acute Plan: History of hallux amputation February due to osteomyelitis now with chronic wound. Foot xray: Osteomyelitis involving the distal second metatarsal, distal first metatarsal, base of proximal phalanx second toe. Extensive vascular calcification noted. ESR>140. WBC 13.2. CRP 7.18 Vitals stable. Afebrile MRI pending -Vancomycin IV started-pharmacy consulted -Cefepime 2g q12H -Wound culture -Blood cultures pending -Consult podiatry-appreciate recs -NPO after midnight for possible surgical intervention -PT/OT -Continue home gabapentin -[place], morphine PRN pain (2) PVD (peripheral vascular disease) ICD Codes: I73.9 - Peripheral vascular disease, unspecified Status: Chronic Plan: History of peripheral vascular disease with femoral endarterectomy earlier this year in February. Has had bulge at site of surgery since then. Ultrasound: pseudoaneurysm in the left inguinal region. -Consult vascular surgery for recs -Continue home Brilinta -Monitor clinically (3) DM (diabetes mellitus) ICD Codes: E11.9 - Type 2 diabetes mellitus without complications Status: Chronic Plan: Hold home metformin and glipizide -Low dose sliding scale insulin -Regular accuchecks (4) CHF (congestive heart failure) ICD Codes: I50.9 - Heart failure, unspecified Status: Chronic Plan: History of CHF with AICD placement and CABG in the past -Continue home meds: lasix, spironolactone, coreg -Monitor vitals -Consider cardiology consult if worsening clinically (5) Anemia ICD Codes: D64.9 - Anemia, unspecified Plan: Hb of 9.5 on admission. No signs of bleeding. Hgb of 9.1 three months ago. No signs of active bleeding -Continue to monitor -Daily CBCs (6) Depression ICD Codes: F32.9 - Major depressive disorder, single episode, unspecified Status: Chronic Plan: Continue home Effexor Clonazepam PRN (7) FEN Status: Acute Plan: Fluids: PO, limit fluids due to CHF Electrolytes: Sodium 129, monitor & replace PRN Nutrition: heart healthy diet, NPO after midnight DVT ppx: SCDs, hold chemoppx for possible surgery See the residents documentation for details. I saw and evaluated the patient regarding the navas portions of this evaluation and agree with the residents findings and plans as written. I have reviewed the patients past medical/surgical and social histories and updated as appropriate. Parts of this note were created using dragon voice recognition software program. While efforts were made to correct any mistakes made by this software, some mistakes, errors, and omissions may remain in the final note that were not caught when the note was originally created. Plan of care was discussed and agreed upon with the patient as specifically documented in the above note. An opportunity to ask questions with explanation was provided. Patient voiced understanding on all information reviewed and discussed. (Ghassan Mai MD) Physician Certification 2 Midnight Certification Type: Admission for Inpatient Services Order for Inpatient Services The services are ordered in accordance with Medicare regulations or non- Medicare payer requirements, as applicable. In the case of services not specified as inpatient-only, they are appropriately provided as inpatient services in accordance with the 2-midnight benchmark. Estimated LOS (days): 3 days is the estimated time the patient will need to remain in the hospital, assuming treatment plan goals are met and no additional complications. Post-Hospital Plan: Home (Sal Haro MD, R2) Problem Qualifiers (1) Osteomyelitis: Qualified Codes: M86.9 - Osteomyelitis, unspecified (2) DM (diabetes mellitus): Qualified Codes: E11.59 - Type 2 diabetes mellitus with other circulatory complications (3) CHF (congestive heart failure): Qualified Codes: I50.9 - Heart failure, unspecified Sal Haro MD, R2 Jul 11, 2017 13:44 Ghassan Mai MD Jul 12, 2017 15:18
[2017-07-11] MEDS ORDERED: BISACODYL 10 MG SUPP RECTAL PRN (14:30)
[2017-07-11] MEDS ORDERED: LACTULOSE SYRUP 20 GM/30 ML CUP PO PRN (14:30)
[2017-07-11] MEDS ORDERED: SODIUM CHLORIDE 0.9% FLUSH 10 ML FLUSH IV FLUSH PRN (14:30)
[2017-07-11] MEDS ORDERED: ACETAMINOPHEN 325 MG TAB PO PRN (14:30)
[2017-07-11] MEDS ORDERED: NALOXONE HCL 0.4 MG/ML AMP IV PUSH PRN ×2 (14:30→16:15)
[2017-07-11] MEDS ORDERED: ONDANSETRON HCL 4 MG/2 ML VIAL IVP PRN (14:30)
[2017-07-11] MEDS ORDERED: SENNOSIDES 8.6 MG TAB PO PRN (14:30)
[2017-07-11] MEDS ORDERED: MAGNESIUM HYDROXIDE SUSP 30 ML CUP PO PRN (14:30)
[2017-07-11 14:39] VITALS: O2SAT 99
[2017-07-11] MEDS ORDERED: DEXTROSE 50% IN WATER 50 ML VIAL(D50) IV PUSH PRN (14:45)
[2017-07-11] MEDS ORDERED: Vancomycin Consult Pharmacy 1 EA OTHER SCH (14:45)
[2017-07-11] MEDS ORDERED: GLUCAGON 1 MG/ML VIAL OTHER PRN (14:45)
[2017-07-11 15:15] VITALS: BP 116/56; PULSE 79; RESP 20; TEMP 98; O2SAT 98
[2017-07-11] MEDS ORDERED: ACETAMINOPHEN/HYDROcodone 325 MG/5 MG TAB PO PRN (16:15)
[2017-07-11] MEDS: clonazePAM 0.5 MG TAB PO PRN (16:19)
[2017-07-11] MEDS: INSULIN ASPART SUPPLEMENTAL SCALE SQ SCH ×2 (17:00→20:51)
[2017-07-11] MEDS ORDERED: GADODIAMIDE PF 287 MG/ML 20 ML VIAL (for RAD MRI) IVCONTRAST ONE (17:13)
--- NOTE | 2017-07-11 17:29 | PD.CAR.PN ---
CVT Progress Note Subjective/Hospital Course: referral received Full consult ROMAIN Gutierrez Objective: Vital Signs Date Time Temp Pulse Resp B/P (MAP) Pulse Ox O2 Delivery O2 Flow Rate FiO2 07/11/17 15:42 07/11/17 14:39 99 21 07/11/17 11:13 79 18 114/58 (76) 99 Room Air 07/11/17 10:37 98.0 92 18 128/66 (86) 97 Room Air Labs: Laboratory Tests Test 07/11/17 11:25 White Blood Count 13.2 TH/MM3 (4.0-11.0) Red Blood Count 3.58 MIL/MM3 (4.50-5.90) Hemoglobin 9.5 GM/DL (13.0-17.0) Hematocrit 28.8 % (39.0-51.0) Mean Corpuscular Volume 80.4 FL (80.0-100.0) Mean Corpuscular Hemoglobin 26.6 PG (27.0-34.0) Mean Corpuscular Hemoglobin Concent 33.1 % (32.0-36.0) Red Cell Distribution Width 16.2 % (11.6-17.2) Platelet Count 423 TH/MM3 (150-450) Mean Platelet Volume 7.2 FL (7.0-11.0) Neutrophils (%) (Auto) 85.7 % (16.0-70.0) Lymphocytes (%) (Auto) 7.1 % (9.0-44.0) Monocytes (%) (Auto) 5.0 % (0.0-8.0) Eosinophils (%) (Auto) 1.6 % (0.0-4.0) Basophils (%) (Auto) 0.6 % (0.0-2.0) Neutrophils # (Auto) 11.4 TH/MM3 (1.8-7.7) Lymphocytes # (Auto) 0.9 TH/MM3 (1.0-4.8) Monocytes # (Auto) 0.7 TH/MM3 (0-0.9) Eosinophils # (Auto) 0.2 TH/MM3 (0-0.4) Basophils # (Auto) 0.1 TH/MM3 (0-0.2) CBC Comment DIFF FINAL Differential Comment Erythrocyte Sedimentation Rate GREATER THAN 140 mm/hr Blood Urea Nitrogen 24 MG/DL (7-18) Creatinine 1.27 MG/DL (0.60-1.30) Random Glucose 361 MG/DL (74-106) Total Protein 8.1 GM/DL (6.4-8.2) Albumin 2.8 GM/DL (3.4-5.0) Calcium Level 8.9 MG/DL (8.5-10.1) Alkaline Phosphatase 90 U/L (45-117) Aspartate Amino Transf (AST/SGOT) 26 U/L (15-37) Alanine Aminotransferase (ALT/SGPT) 38 U/L (12-78) Total Bilirubin 0.2 MG/DL (0.2-1.0) Sodium Level 129 MEQ/L (136-145) Potassium Level 4.8 MEQ/L (3.5-5.1) Chloride Level 98 MEQ/L (98-107) Carbon Dioxide Level 22.7 MEQ/L (21.0-32.0) Anion Gap 8 MEQ/L (5-15) Estimat Glomerular Filtration Rate 57 ML/MIN (>89) C-Reactive Protein 7.18 MG/DL (0.00-0.30) Result Diagram: 07/11/17 1125 07/11/17 1125 Trisha Fleming MD Jul 11, 2017 17:29
--- NOTE | 2017-07-11 18:25 | RADRPT ---
EXAM DATE/TIME: 07/11/2017 16:32 [facility] COMPARISON: MRI FOOT LEFT W & W/O CONTRAST, February 22, 2017, 13:01. FOOT LEFT LIMITED (2VWS), July 11, 2017, 11:37. INDICATIONS : Left great toe amputee wound. CONTRAST: 18 cc Omniscan (gadodiamide) IV MEDICAL HISTORY : Diabetes mellitus type 2. Cardiovascular disease Congestive heart failure. SURGICAL HISTORY : Defibrillator. Coronary artery stent. CABG Left great toe amputated. ENCOUNTER: Subsequent ACUITY: 2 weeks PAIN SCORE: 0/10 LOCATION: Left foot TECHNIQUE: Multiplanar, multisequence MRI examination was performed without contrast and after the intravenous a dministration of gadolinium. FINDINGS: One there is extensive edema with enhancement corresponding to destructive lesions on the patien t's plain radiographs involving the first metatarsal stump, second distal metatarsal bone and proxima l phalanx with extensive soft tissue edema surrounding these areas. There is also involvement of the third distal metatarsal bone. CONCLUSION: There is osteomyelitis involving the first metatarsal stump, second and third distal metatarsal bones and second proximal phalanx. Antony Peña MD on July 11, 2017 at 18:12 Board Certified Radiologist. This report was verified electronically.
[2017-07-11] MEDS: CEFEPIME INJ 2,000 MG in SODIUM CHLORIDE 0.9% INJ 100 ML IV SCH (18:31)
[2017-07-11] MEDS: SPIRONOLACTONE 25 MG TAB PO SCH (18:33)
[2017-07-11] MEDS: GABAPENTIN 100 MG CAP PO SCH ×2 (18:33→20:50)
[2017-07-11] MEDS: VANCOMYCIN INJ 1,750 MG in SODIUM CHLORID 0.9% 500 ML INJ 500 ML IV SCH (19:12)
--- NOTE | 2017-07-11 19:45 | MB ---
cc: BUFFY GOULD DATE OF CONSULTATION 07/11/2017 CHIEF COMPLAINT Left foot ulceration and osteomyelitis. HISTORY OF PRESENT ILLNESS Mr. Ovalle is 62-year-old male patient with a six months history of left foot infection. He had a hallux amputation [address] Eid. The amputation never healed fully and has since developed into a full-thickness wound. He has switched doctors to Dr. Awad as he felt his situation was declining with the care he was receiving. Dr. Awad made some progress with the wound. They felt it was going to heal but then over the last two weeks he developed an odor, some purulent drainage and a fever. He did see Dr. Schultz who started him on ciprofloxacin and doxycycline, however, he continued to decline. The patient denies any pain at this time. He is neuropathic. He has failed IV antibiotics, oral antibiotics, hyperbaric oxygen treatment and wound debridement and conservative wound care. PAST MEDICAL HISTORY Includes: 1. Diabetes mellitus. 2. Congestive heart failure. 3. Peripheral vascular disease. 4. Peripheral arterial disease. 5. Atrial fibrillation. PAST SURGICAL HISTORY Includes: 1. Coronary artery bypass graft. 2. Multiple cardiac stents. 3. AICD. 4. Partial endarterectomy on the left. 5. Left hallux amputation. 6. Cardiac ablation. MEDICATIONS Please see list. ALLERGIES TO CYCLOBENZAPRINE AND LISINOPRIL. FAMILY HISTORY Noncontributory. SOCIAL HISTORY The patient lives at home with his and has family nearby. He was a one-pack per day smoker for 50 years but quit 6 months ago. Denies any alcohol or drug abuse. Vital signs, temperature is 98.0, pulse 92, respiratory rate 18, blood pressure 128/66, pulse ox 97% O2 on room air. LABORATORY DATA White count of 13.2, hemoglobin 9.5, hematocrit 28.8, platelets 423. Chemistry, sodium 129, potassium 4.8, chloride 98, carbon dioxide 22.7, BUN 24. C-reactive protein is 7.18. IMAGING X-rays show osteomyelitis of the first and second metatarsal heads and base of the second proximal phalanx. No gas in the soft tissues. Previous hallux amputation is noted. PHYSICAL EXAMINATION EXTREMITIES: The patient has warm perfusion to the foot but no palpable pulses. Cap fill time is less than 3 seconds. Gross sensation is not intact. There is a large distal medial ulceration approximately 2.0 x 4.5 x 1.0 cm deep probing to bone. Severe malodor, purulent drainage, a mixture of fibrotic and necrotic tissue. ASSESSMENT/PLAN 1)Stage IV ulceration and with osteomyelitis, left foot. -The patient had a femoral endarterectomy with Dr. Fleming approximately 6 months ago. However, he has severe calcifications on the radiographs and was unable to heal the hallux amputation after his endarterectomy. I have concerns that he would not be able to heal a second foot amputation either. The patient and his family have expressed the desire to limit the amount of surgery even if that means having a [id number] amputation. I advised them that we should wait for Dr. Fleming's input before making any decisions as I am interested in his opinion of the patient's blood flow. If he feels the patient can heal the ray amputation we can certainly move forward with this, however, if he has doubts, then I will respect the patient's wish to move forward with a below-knee amputation. -Twice daily dressing changes ordered for nursing staff. -Continue IV antibiotics. Thank you for this consultation. Buffy KWOKKK /6:08 PM /7:07 PM MTDD
[2017-07-11] MEDS ORDERED: SODIUM HYPOCHLORITE 0.25% 500 ML BTL TOP PRN (20:00)
[2017-07-11 20:37] VITALS: BP 118/71; PULSE 87; RESP 18; TEMP 98.6; O2SAT 96
[2017-07-11] MEDS: EZETIMIBE 10 MG TAB PO SCH (20:50)
[2017-07-11] MEDS: TICAGRELOR 90 MG TAB PO SCH (20:50)
[2017-07-11] MEDS: DOCUSATE SODIUM 50 MG/SENNA 8.6 MG TAB PO SCH (20:50)
[2017-07-11] MEDS: CARVEDILOL 6.25 MG TAB PO SCH (20:50)
[2017-07-11] MEDS: PRAVASTATIN SOD 80 MG TAB PO SCH (20:50)
[2017-07-11] MEDS: VENLAFAXINE HCL XR 75 MG CAP PO SCH (20:50)
[2017-07-11] MEDS: SODIUM CHLORIDE 0.9% FLUSH 10 ML FLUSH IV FLUSH SCH (20:51)
[2017-07-11] MEDS ORDERED: KRILL OIL 500 MG PO SCH (21:00)
[2017-07-11] MEDS: ACETAMINOPHEN/HYDROcodone 325 MG/7.5 MG TAB PO PRN (23:30)
[2017-07-12] VITALS (11 sets, daily range): BP systolic 99–121; BP diastolic 54–60; PULSE 61–83; RESP 18–20; TEMP 97.3–98.4; O2SAT 96–98
[2017-07-12] MEDS: CEFEPIME INJ 2,000 MG in SODIUM CHLORIDE 0.9% INJ 100 ML IV SCH ×2 (03:00→15:06)
[2017-07-12] MEDS: INSULIN ASPART SUPPLEMENTAL SCALE SQ SCH ×4 (08:00→20:37)
[2017-07-12 08:59] LABS: AUTOMATED NEUTROPHIL # 11.5 TH/MM3 (1.8-7.7); BASOPHIL # 0.1 TH/MM3 (0-0.2); BASOPHIL % 0.5 % (0.0-2.0); EOSINOPHIL # 0.3 TH/MM3 (0-0.4); EOSINOPHIL % 2.1 % (0.0-4.0); HEMATOCRIT 27.1 % (39.0-51.0); HEMOGLOBIN 9.3 GM/DL (13.0-17.0); LYMPH % 5.9 % (9.0-44.0); LYMPHOCYTE # 0.8 TH/MM3 (1.0-4.8); MEAN CELL VOLUME 79.9 FL (80.0-100.0); MEAN CORPUSCULAR HEMOGLOBIN 27.4 PG (27.0-34.0); MEAN CORPUSCULAR HGB CONC 34.3 % (32.0-36.0); MEAN PLATELET VOLUME 7.4 FL (7.0-11.0); MONO % 5.7 % (0.0-8.0); MONOCYTE # 0.8 TH/MM3 (0-0.9); NEUT % 85.8 % (16.0-70.0); PLATELET COUNT 419 TH/MM3 (150-450); RED BLOOD COUNT 3.39 MIL/MM3 (4.50-5.90); RED CELL DISTRIBUTION WIDTH 16.4 % (11.6-17.2); WHITE BLOOD COUNT 13.4 TH/MM3 (4.0-11.0)
[2017-07-12] MEDS: DOCUSATE SODIUM 50 MG/SENNA 8.6 MG TAB PO SCH ×2 (09:00→20:22)
[2017-07-12] MEDS ORDERED: VENLAFAXINE HCL XR 75 MG CAP PO SCH (09:00)
[2017-07-12] MEDS: FUROSEMIDE 40 MG TAB PO SCH (09:07)
[2017-07-12] MEDS: FERROUS SULFATE 325 MG (65 MG ELEMENTAL IRON) TAB PO SCH (09:07)
[2017-07-12] MEDS: ASPIRIN 81 MG CHEW TAB PO SCH (09:07)
[2017-07-12] MEDS: SPIRONOLACTONE 25 MG TAB PO SCH ×2 (09:07→17:43)
[2017-07-12] MEDS: TICAGRELOR 90 MG TAB PO SCH ×2 (09:08→20:21)
[2017-07-12] MEDS: LOSARTAN 25 MG TAB PO SCH (09:08)
[2017-07-12] MEDS: ACETAMINOPHEN/HYDROcodone 325 MG/7.5 MG TAB PO PRN ×4 (09:08→21:58)
[2017-07-12] MEDS: CARVEDILOL 6.25 MG TAB PO SCH ×2 (09:08→20:21)
[2017-07-12] MEDS: GABAPENTIN 100 MG CAP PO SCH ×4 (09:08→20:22)
[2017-07-12] MEDS: SODIUM CHLORIDE 0.9% FLUSH 10 ML FLUSH IV FLUSH SCH ×2 (09:12→20:22)
[2017-07-12 09:18] LABS: BICARBONATE 17.4 MEQ/L (21.0-32.0); CALCIUM 9.1 MG/DL (8.5-10.1); CREATININE 0.88 MG/DL (0.60-1.30)
[2017-07-12] MEDS ORDERED: MELOXICAM 15 MG TAB PO SCH (11:45)
[2017-07-12] MEDS ORDERED: PANTOPRAZOLE SOD 20 MG DELAYED RELEASE TAB PO SCH (11:45)
--- NOTE | 2017-07-12 13:21 | HHI.HP ---
HPI Service Family Medicine Primary Care Physician Gerhard Lerner MD Admission Diagnosis osteomyelitis Diagnoses: (1) Osteomyelitis (2) PVD (peripheral vascular disease) (3) DM (diabetes mellitus) (4) CHF (congestive heart failure) (5) Anemia (6) Depression (7) FEN International Travel<30 Days: No Contact w/Intl Traveler<30days: No History of Present Illness Patient was seen and examined at bedside today. He is accompanied by his family members today. He states feeling well. He is concerned about a possible amputation of his foot. He denies any issues during the night. He denies any complaints of chest pain, shortness of breath, or abdominal discomfort. Denies any discomfort in the left lower extremity. He does have a complaint of a swelling over her prior surgical intervention he had for an endarterectomy. Overall he is feeling well. Patient is in good spirits. He was seen by podiatry and vascular surgery. Continues to have full movement of his lower extremity, the available digits. Continues to have some mild numbness , which she says is not new of the lower extremity. States that his inflammation and swelling of the lower extremity of been improving since starting inpatient visit. Review of Systems Other REVIEW OF SYSTEMS: General: Denies fever or other problems. Skin: Denies rash. Wound over left foot HEENT: No diplopia. No epistaxis. No headache. Head: Denies head injury. Respiratory: No cough. Denies shortness of breath. Cardiovascular: No chest pain. No reduced exercise tolerance. Gastrointestinal: No abdominal pain. No constipation or diarrhea. No hematemesis and rectal bleeding. Genitourinary: No abnormal urination. Hematologic: No easy bruisability. Musculoskeletal: See HPI. Neurologic: See HPI. Psychiatric: Denies problems. Past Family Social History Past Medical History PAD DM CHF Afib Past Surgical History CABG-2002 Multiple cardiac stents AICD-2015 (CHF) Partial endardertectomy on left (02/2017) Left hallux amputation (02/2017) Cardiac ablation Allergies: Coded Allergies: cyclobenzaprine (Verified Allergy, Severe, Flushing, 07/11/17) REDNESS lisinopril (Verified Allergy, Unknown, Swelling, 07/11/17) ANGIOEDEMA Family History Father-Heart disease, Mother-DM, arthritis; Brother-lung cancer; Sister-throat cancer Social History On disability Tobacco: quit 5 months ago, smoked 1 PPD for 50y Alcohol use: denies Illicit drug use: denies Physical Exam Vital Signs Vital Signs Date Time Temp Pulse Resp B/P (MAP) Pulse Ox O2 Delivery O2 Flow Rate FiO2 07/12/17 08:30 Room Air 07/12/17 07:50 74 07/12/17 07:00 97.4 77 18 104/60 (75) 96 07/12/17 04:00 Room Air 07/12/17 03:55 77 07/12/17 00:30 98.4 77 18 99/54 (69) 96 07/12/17 00:00 Room Air 07/12/17 00:00 76 07/11/17 20:37 98.6 87 18 118/71 (87) 96 07/11/17 20:00 Room Air 07/11/17 15:42 07/11/17 15:15 98.0 79 20 116/56 (76) 98 07/11/17 14:39 99 21 Physical Exam GENERAL: This is a well-nourished, well-developed patient, in no apparent distress. SKIN: No rashes, ecchymoses or lesions. Open wound over the left foot. Good sensation over her lower extremity, other than decreased sensation over terminal digits on the left side. HEAD: Atraumatic. Normocephalic. No temporal or scalp tenderness. EYES: Pupils equal round and reactive. Extraocular motions intact. No scleral icterus. No injection or drainage. ENT: Nose without bleeding, purulent drainage or septal hematoma. Throat without erythema, tonsillar hypertrophy or exudate. Uvula midline. Airway patent. NECK: Trachea midline. No JVD or lymphadenopathy. Supple, nontender, no meningeal signs. CARDIOVASCULAR: Regular rate and rhythm without murmurs, gallops, or rubs. RESPIRATORY: Clear to auscultation. Breath sounds equal bilaterally. No wheezes , rales, or rhonchi. GASTROINTESTINAL: Abdomen soft, non-tender, nondistended. No hepato-splenomegaly , or palpable masses. No guarding. MUSCULOSKELETAL: Extremities without clubbing, cyanosis, or edema. Good range of motion of intact left lower extremity. Good temperature of lower extremity. Bandaging placed over left ankle. Mild drainage over bandaging. Negative Homans sign bilaterally. NEUROLOGICAL: Awake and alert. Cranial nerves II through XII intact. Motor and sensory grossly within normal limits. Five out of 5 muscle strength in all muscle groups. Normal speech. Laboratory Laboratory Tests Test 07/12/17 06:53 White Blood Count 13.4 Red Blood Count 3.39 Hemoglobin 9.3 Hematocrit 27.1 Mean Corpuscular Volume 79.9 Mean Corpuscular Hemoglobin 27.4 Mean Corpuscular Hemoglobin Concent 34.3 Red Cell Distribution Width 16.4 Platelet Count 419 Mean Platelet Volume 7.4 Neutrophils (%) (Auto) 85.8 Lymphocytes (%) (Auto) 5.9 Monocytes (%) (Auto) 5.7 Eosinophils (%) (Auto) 2.1 Basophils (%) (Auto) 0.5 Neutrophils # (Auto) 11.5 Lymphocytes # (Auto) 0.8 Monocytes # (Auto) 0.8 Eosinophils # (Auto) 0.3 Basophils # (Auto) 0.1 CBC Comment DIFF FINAL Differential Comment Blood Urea Nitrogen 18 Creatinine 0.88 Random Glucose 188 Calcium Level 9.1 Sodium Level 130 Potassium Level 4.4 Chloride Level 103 Carbon Dioxide Level 17.4 Anion Gap 10 Estimat Glomerular Filtration Rate 88 Date/Time Source Procedure Growth Status 07/11/17 11:25 Blood Peripheral Aerobic Blood Culture - Preliminary NO GROWTH IN 1 DAY Resulted 07/11/17 11:25 Blood Peripheral Anaerobic Blood Culture - Preliminary NO GROWTH IN 1 DAY Resulted Result Diagram: 07/12/17 0653 07/12/17 0653 Imaging Last Impressions Lower Extremity Ultrasound 07/11/17 0000 Signed Impressions: Service Date/Time: Tuesday, July 11, 2017 12:11 - CONCLUSION: 1. Positive for 5.7 x 6.7 x 7.1 cm pseudoaneurysm in the left inguinal region. Rivas Triplett MD Foot X-Ray 07/11/17 0000 Signed Impressions: Service Date/Time: Tuesday, July 11, 2017 11:37 - CONCLUSION: Osteomyelitis as described above. Ronny Moreno MD FACR Caprini VTE Risk Assessment Caprini VTE Risk Assessment: Mod/High Risk (score >= 2) Caprini Risk Assessment Model Point Value = 1 Point Value = 2 Point Value = 3 Point Value = 5 Age 41-60 Minor surgery BMI > 25 kg/m2 Swollen legs Varicose veins or History of unexplained or recurrent spontaneous Oral contraceptives or hormone replacement Sepsis (< 1 month) Serious lung disease, including pneumonia (< 1 month) Abnormal pulmonary function Acute myocardial infarction Congestive heart failure (< 1 month) History of inflammatory bowel disease Medical patient at bed rest Age 61-74 Arthroscopic surgery Major open surgery (> 45 min) Laparoscopic surgery (> 45 min) Malignancy Confined to bed (> 72 hours) Immobilizing plaster cast Central venous access Age >= 75 History of VTE Family history of VTE Factor V Leiden Prothrombin [id number] Lupus anticoagulant Anticardiolipin antibodies Elevated serum homocysteine Heparin-induced thrombocytopenia Other congenital or acquired thrombophilia Stroke (< 1 month) Elective arthroplasty Hip, pelvis, or leg fracture Acute spinal cord injury (< 1 month) Prophylaxis Regimen Total Risk Factor Score Risk Level Prophylaxis Regimen 0-1 Low Early ambulation 2 Moderate Order ONE of the following: *Sequential Compression Device (SCD) *Heparin 5000 units SQ BID 3-4 Higher Order ONE of the following medications: *Heparin 5000 units SQ TID *Enoxaparin/Lovenox 40 mg SQ daily (WT < 150 kg, CrCl > 30 mL/min) *Enoxaparin/Lovenox 30 mg SQ daily (WT < 150 kg, CrCl > 10-29 mL/min) *Enoxaparin/Lovenox 30 mg SQ BID (WT < 150 kg, CrCl > 30 mL/min) AND/OR *Sequential Compression Device (SCD) 5 or more Highest Order ONE of the following medications: *Heparin 5000 units SQ TID (Preferred with Epidurals) *Enoxaparin/Lovenox 40 mg SQ daily (WT < 150 kg, CrCl > 30 mL/min) *Enoxaparin/Lovenox 30 mg SQ daily (WT < 150 kg, CrCl > 10-29 mL/min) *Enoxaparin/Lovenox 30 mg SQ BID (WT < 150 kg, CrCl > 30 mL/min) AND *Sequential Compression Device (SCD) Assessment and Plan Assessment and Plan A 62-year-old male with history of diabetes, peripheral vascular disease, chronic wound presents with osteomyelitis of left foot. Admit for surgery and IV antibiotics. Problem List: (1) Osteomyelitis ICD Codes: M86.9 - Osteomyelitis, unspecified Status: Acute Plan: Spoke to the patient at length about imaging findings. We discussed about his osteomyelitis. He's been placed on broad-spectrum antibiotics. Awaiting results of cultures. Appreciated a consult of podiatry. Possibly considering surgical intervention for the patient. Patient is open to surgical intervention per discussion. Also waiting consult from vascular surgery. We spoke to the patient about possible treatment options for him. It seems that he has not done well with outpatient nonsurgical therapy. It seems that his symptoms are improving. Foot xray: Osteomyelitis involving the distal second metatarsal, distal first metatarsal, base of proximal phalanx second toe. Extensive vascular calcification noted. (2) PVD (peripheral vascular disease) ICD Codes: I73.9 - Peripheral vascular disease, unspecified Status: Chronic Plan: History of peripheral vascular disease with femoral endarterectomy earlier this year in February. Has had bulge at site of surgery since then. He has been seen by vascular surgery. Awaiting recommendations from vascular. (3) DM (diabetes mellitus) ICD Codes: E11.9 - Type 2 diabetes mellitus without complications Status: Chronic Plan: We'll continue to monitor the patient's blood sugar while an inpatient. He has been placed on sliding scale. We'll also plan to restart his home medication at discharge. (4) CHF (congestive heart failure) ICD Codes: I50.9 - Heart failure, unspecified Status: Chronic Plan: History of CHF with AICD placement and CABG in the past We'll continue the patient's home medication. He doesn't seem fluid overloaded at this time. (5) Anemia ICD Codes: D64.9 - Anemia, unspecified Plan: Noted the patient's hemoglobin. We'll continue to monitor. Transfuse if needed. (6) Depression ICD Codes: F32.9 - Major depressive disorder, single episode, unspecified Status: Chronic Plan: Renew patient's home medication. (7) FEN Status: Acute Plan: Fluids: PO, limit fluids due to CHF Electrolytes: Slightly improvement of sodium Nutrition: heart healthy diet DVT ppx: SCDs, Parts of this note were created using [employer] voice recognition software program. While efforts were made to correct any mistakes made by this software, some mistakes, errors, and omissions may remain in the final note that were not caught when the note was originally created. Plan of care was discussed and agreed upon with the patient as specifically documented in the above note. An opportunity to ask questions with explanation was provided. Patient voiced understanding on all information reviewed and discussed. Physician Certification 2 Midnight Certification Type: Admission for Inpatient Services Order for Inpatient Services The services are ordered in accordance with Medicare regulations or non- Medicare payer requirements, as applicable. In the case of services not specified as inpatient-only, they are appropriately provided as inpatient services in accordance with the 2-midnight benchmark. Estimated LOS (days): 2 days is the estimated time the patient will need to remain in the hospital, assuming treatment plan goals are met and no additional complications. Post-Hospital Plan: Home Problem Qualifiers (1) Osteomyelitis: Qualified Codes: M86.9 - Osteomyelitis, unspecified (2) DM (diabetes mellitus): Qualified Codes: E11.59 - Type 2 diabetes mellitus with other circulatory complications (3) CHF (congestive heart failure): Qualified Codes: I50.9 - Heart failure, unspecified Ghassan Mai MD Jul 12, 2017 13:21
[2017-07-12] MEDS: VANCOMYCIN INJ 1,750 MG in SODIUM CHLORID 0.9% 500 ML INJ 500 ML IV SCH (17:43)
--- NOTE | 2017-07-12 17:46 | PD.CAR.PN ---
CVT Progress Note Subjective/Hospital Course: referral received Full consult ROMAIN Gutierrez 07/12/16 Patient with severe peripheral vascular disease who underwent in February last year common femoral and external iliac artery endarterectomy with patch angioplasty and SFA and distal balloon angioplasty. This was followed by left hallux amputation by podiatry. Patient did well as far as the vascular supply goes and he has dopplerable proximal and distal pulses Foot is warm and capillary refill is intact No dependent rubor or elevation pallor is noted Nonetheless patient is a nonhealing side of the left hallux amputation with osteomyelitis At this point given the circumstances I definitely agree with Dr. Otero that patient should have a more proximal foot /transmetatarsal amputation, rather than a BKA. It may come to the point for patient will need a BKA but in face of good blood supply and certainly would try to do something less first. 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 Pseudoaneurysm is fairly large and therefore not amiable to endovascular thrombosis. Would go ahead with podiatric surgery at this time and I will follow with the pseudoaneurysm repair Sunday or Sunday Objective: Vital Signs Date Time Temp Pulse Resp B/P (MAP) Pulse Ox O2 Delivery O2 Flow Rate FiO2 07/12/17 12:00 75 07/12/17 08:30 Room Air 07/12/17 08:00 98.3 83 20 113/58 (76) 96 07/12/17 07:50 74 07/12/17 07:00 97.4 77 18 104/60 (75) 96 07/12/17 04:00 Room Air 07/12/17 03:55 77 07/12/17 00:30 98.4 77 18 99/54 (69) 96 07/12/17 00:00 Room Air 07/12/17 00:00 76 07/11/17 20:37 98.6 87 18 118/71 (87) 96 07/11/17 20:00 Room Air Labs: Laboratory Tests Test 07/12/17 06:53 White Blood Count 13.4 TH/MM3 (4.0-11.0) Red Blood Count 3.39 MIL/MM3 (4.50-5.90) Hemoglobin 9.3 GM/DL (13.0-17.0) Hematocrit 27.1 % (39.0-51.0) Mean Corpuscular Volume 79.9 FL (80.0-100.0) Mean Corpuscular Hemoglobin 27.4 PG (27.0-34.0) Mean Corpuscular Hemoglobin Concent 34.3 % (32.0-36.0) Red Cell Distribution Width 16.4 % (11.6-17.2) Platelet Count 419 TH/MM3 (150-450) Mean Platelet Volume 7.4 FL (7.0-11.0) Neutrophils (%) (Auto) 85.8 % (16.0-70.0) Lymphocytes (%) (Auto) 5.9 % (9.0-44.0) Monocytes (%) (Auto) 5.7 % (0.0-8.0) Eosinophils (%) (Auto) 2.1 % (0.0-4.0) Basophils (%) (Auto) 0.5 % (0.0-2.0) Neutrophils # (Auto) 11.5 TH/MM3 (1.8-7.7) Lymphocytes # (Auto) 0.8 TH/MM3 (1.0-4.8) Monocytes # (Auto) 0.8 TH/MM3 (0-0.9) Eosinophils # (Auto) 0.3 TH/MM3 (0-0.4) Basophils # (Auto) 0.1 TH/MM3 (0-0.2) CBC Comment DIFF FINAL Differential Comment Blood Urea Nitrogen 18 MG/DL (7-18) Creatinine 0.88 MG/DL (0.60-1.30) Random Glucose 188 MG/DL (74-106) Calcium Level 9.1 MG/DL (8.5-10.1) Sodium Level 130 MEQ/L (136-145) Potassium Level 4.4 MEQ/L (3.5-5.1) Chloride Level 103 MEQ/L (98-107) Carbon Dioxide Level 17.4 MEQ/L (21.0-32.0) Anion Gap 10 MEQ/L (5-15) Estimat Glomerular Filtration Rate 88 ML/MIN (>89) Result Diagram: 07/12/17 0653 07/12/17 0653 Trisha Fleming MD Jul 12, 2017 17:46
--- NOTE | 2017-07-12 19:27 | MB ---
cc: RISSA BURGER DATE OF CONSULTATION 07/11/2016 REASON FOR CONSULTATION Peripheral vascular disease, pseudoaneurysm of the left groin, non-healing hallux amputation. HISTORY OF PRESENT ILLNESS This 62-year-old gentleman with severe peripheral vascular disease underwent in February 2017 common femoral and external iliac endarterectomy, patch angioplasty as well as endovascular balloon angioplasty of the left SFA. The patient postoperatively did very well and has healed nicely. In addition, at the time investigation division captain did a hallux amputation. However, this has never healed. The patient now comes back with a non-healing wound of the amputation site of the left hallux and question arises about any possible remedies. PAST MEDICAL HISTORY 1. Diabetes mellitus, 2. Hypertension, 3. Congestive heart failure, 4. Chronic anemia. 5. Atrial fibrillation PAST SURGICAL HISTORY 1. Coronary artery bypass surgery, multiple cardiac stents cardiac ablation. 2. Pacer defibrillator placement 3. Above-noted vascular surgeries MEDICATIONS multiple and can be found on the record. SOCIAL HISTORY The patient smoked most of his adult life about a pack to pack and a half a day for 50 years and states he stopped a few months ago but still occasionally smokes a cigarette so in essence he has not stopped. PHYSICAL EXAMINATION GENERAL: A 62-year-old male. HEENT: Normocephalic. No trauma to the head. Pupils equally reactive. Extraocular muscles intact. NECK: Supple, bilateral good carotid pulses and faint bruits. The patient has been worked up for carotid issues in the past. CHEST: Bilateral breath sounds decreased over both lung varela consistent with moderate degree of COPD and pulmonary cachexia as already evident. HEART: Actually the patient is now in sinus rhythm, left subclavian pacemaker defibrillator. ABDOMEN: Soft. Active bowel sounds. No rebound, guarding, no masses. EXTREMITIES: The patient has dopplerable right femoral pulse and very weak palpable pulse. He has dopplerable popliteal pulses bilateral and posterior tibial bilateral. Dorsalis pedis is very weak on the left and very weak on the right. 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 IMPRESSION Patient with multiple problems. As far as the leg is concerned, he has good blood flow distally and I believe it is prudent to proceed with podiatry surgery first and see if this heals. If this does not heal, I can always do below-knee amputation, but with a fairly good flow I will definitely give the chance to the patient for lesser surgery. In addition, he has a pseudoaneurysm of the left groin which is fairly large and needs to be addressed surgically. I will deal with this in the next few days after the podiatric surgery is done. Thank you much for referral. Trisha MONAE/ /5:35 PM /6:51 PM
[2017-07-12] MEDS: VENLAFAXINE HCL XR 75 MG CAP PO SCH (20:21)
[2017-07-12] MEDS: PRAVASTATIN SOD 80 MG TAB PO SCH (20:22)
[2017-07-12] MEDS: EZETIMIBE 10 MG TAB PO SCH (20:22)
[2017-07-12] MEDS: clonazePAM 0.5 MG TAB PO PRN (21:56)
[2017-07-13] VITALS (11 sets, daily range): BP systolic 86–112; BP diastolic 50–55; PULSE 59–70; RESP 18–20; TEMP 97.3–98.4; O2SAT 94–98
[2017-07-13] MEDS: ACETAMINOPHEN/HYDROcodone 325 MG/7.5 MG TAB PO PRN ×4 (04:03→20:14)
[2017-07-13] MEDS: CEFEPIME INJ 2,000 MG in SODIUM CHLORIDE 0.9% INJ 100 ML IV SCH ×2 (04:03→15:14)
[2017-07-13 07:34] LABS: AUTOMATED NEUTROPHIL # 8.7 TH/MM3 (1.8-7.7); BASOPHIL # 0.1 TH/MM3 (0-0.2); BASOPHIL % 0.5 % (0.0-2.0); EOSINOPHIL # 0.4 TH/MM3 (0-0.4); EOSINOPHIL % 3.7 % (0.0-4.0); HEMATOCRIT 22.6 % (39.0-51.0); HEMOGLOBIN 7.9 GM/DL (13.0-17.0); LYMPH % 8.6 % (9.0-44.0); LYMPHOCYTE # 0.9 TH/MM3 (1.0-4.8); MEAN CELL VOLUME 78.9 FL (80.0-100.0); MEAN CORPUSCULAR HEMOGLOBIN 27.5 PG (27.0-34.0); MEAN CORPUSCULAR HGB CONC 34.9 % (32.0-36.0); MEAN PLATELET VOLUME 7.1 FL (7.0-11.0); MONO % 5.2 % (0.0-8.0); MONOCYTE # 0.6 TH/MM3 (0-0.9); PLATELET COUNT 378 TH/MM3 (150-450); RED BLOOD COUNT 2.87 MIL/MM3 (4.50-5.90); RED CELL DISTRIBUTION WIDTH 16.2 % (11.6-17.2); WHITE BLOOD COUNT 10.6 TH/MM3 (4.0-11.0)
[2017-07-13] MEDS: INSULIN ASPART SUPPLEMENTAL SCALE SQ SCH ×4 (08:00→20:59)
[2017-07-13 08:02] LABS: BICARBONATE 20.3 MEQ/L (21.0-32.0); CALCIUM 8.7 MG/DL (8.5-10.1); CREATININE 1.01 MG/DL (0.60-1.30)
[2017-07-13] MEDS: ASPIRIN 81 MG CHEW TAB PO SCH (08:36)
[2017-07-13] MEDS: GABAPENTIN 100 MG CAP PO SCH ×3 (08:39→21:00)
[2017-07-13] MEDS: DOCUSATE SODIUM 50 MG/SENNA 8.6 MG TAB PO SCH ×2 (09:00→20:59)
[2017-07-13] MEDS: FERROUS SULFATE 325 MG (65 MG ELEMENTAL IRON) TAB PO SCH (10:14)
[2017-07-13] MEDS: CARVEDILOL 6.25 MG TAB PO SCH ×2 (10:15→20:58)
[2017-07-13] MEDS: FUROSEMIDE 40 MG TAB PO SCH (10:15)
[2017-07-13] MEDS: LOSARTAN 25 MG TAB PO SCH (10:15)
[2017-07-13] MEDS: TICAGRELOR 90 MG TAB PO SCH ×2 (10:15→20:58)
[2017-07-13] MEDS: SPIRONOLACTONE 25 MG TAB PO SCH ×2 (10:17→18:00)
[2017-07-13] MEDS: SODIUM CHLORIDE 0.9% FLUSH 10 ML FLUSH IV FLUSH SCH ×2 (10:17→21:00)
[2017-07-13] MEDS ORDERED: PHENYLEPH/NS 1000 MCG/10 ML SYR IV ONE (12:00)
[2017-07-13] MEDS ORDERED: LIDOCAINE HCL 1% PF 5 ML SYRINGE OTHER ONE (12:00)
[2017-07-13] MEDS ORDERED: ePHEDrine/NS 25 MG/5 ML SYRINGE IV ONE (12:00)
[2017-07-13] MEDS ORDERED: ONDANSETRON HCL 4 MG/2 ML VIAL IV ONE (12:00)
[2017-07-13] MEDS ORDERED: DEXAMETHASONE SOD PHOS 4 MG/ML VIAL IV ONE (12:00)
[2017-07-13] MEDS ORDERED: SUCCINYLCHOLINE CHLORIDE 100 MG/5 ML SYRINGE IV PUSH ONE (12:00)
[2017-07-13] MEDS ORDERED: PROPOFOL 200 MG/20 ML AMP IV ONE (12:00)
--- NOTE | 2017-07-13 14:30 | HHI.FPPN ---
Subjective Remarks Pt seen and examined this morning. No acute events overnight. Pt is scheduled for foot surgery later today. Denies any complaints this morning. No fever/ chills, nausea/vomiting, abdominal pain, leg pain. (Sal Haro MD, R2) Objective Vitals Vital Signs Date Time Temp Pulse Resp B/P (MAP) Pulse Ox O2 Delivery O2 Flow Rate FiO2 07/13/17 12:00 97.4 64 20 103/55 (71) 97 07/13/17 08:40 Room Air 07/13/17 08:00 59 07/13/17 08:00 98.1 64 20 99/55 (70) 98 07/13/17 04:00 98.4 70 18 94/51 (65) 94 07/13/17 03:53 65 07/13/17 00:45 60 07/13/17 00:35 102/50 (67) 07/13/17 00:00 Room Air 07/13/17 00:00 97.8 65 18 86/50 (62) 96 07/12/17 22:28 98 21 07/12/17 20:00 97.9 66 18 121/59 (79) 98 07/12/17 20:00 Room Air 07/12/17 19:44 61 07/12/17 16:00 97.8 64 20 108/57 (74) 98 I/O 07/12/17 07/12/17 07/12/17 07/13/17 07/13/17 07/13/17 07:00 15:00 23:00 07:00 15:00 23:00 Intake Total 100 ml 460 ml 570 ml Output Total 1100 ml Balance 100 ml -640 ml 570 ml Intake Oral 360 ml 570 ml IV Total 100 ml 100 ml Output Urine Total 1100 ml # Voids 2 # Bowel Movements 1 2 (Sal Haro MD, R2) Result Diagram: 07/13/17 0503 07/13/17 0500 Imaging Last Impressions Lower Extremity Ultrasound 07/11/17 0000 Signed Impressions: Service Date/Time: Tuesday, July 11, 2017 12:11 - CONCLUSION: 1. Positive for 5.7 x 6.7 x 7.1 cm pseudoaneurysm in the left inguinal region. Rivas Triplett MD Foot X-Ray 07/11/17 0000 Signed Impressions: Service Date/Time: Tuesday, July 11, 2017 11:37 - CONCLUSION: Osteomyelitis as described above. Ronny Moreno MD FACR Foot MRI 07/11/17 0000 Signed Impressions: Service Date/Time: Tuesday, July 11, 2017 16:32 - CONCLUSION: There is osteomyelitis involving the first metatarsal stump, second and third distal metatarsal bones and second proximal phalanx. Antony Peña MD Objective Remarks GENERAL: This is a well-nourished, well-developed patient, in no apparent distress. SKIN: Cool and dry. CARDIOVASCULAR: Regular rate and rhythm without murmurs, gallops, or rubs. RESPIRATORY: Clear to auscultation. Breath sounds equal bilaterally. No wheezes , rales, or rhonchi. GASTROINTESTINAL: Abdomen soft, non-tender, nondistended. No guarding. Left groin bulge present without tenderness. MUSCULOSKELETAL: Right lower extremity without lesions or wounds. Left foot s/p hallux amputation. Large wound over distal/medial foot open with soft tissue and bone visible, not visualized today. NEUROLOGICAL: Awake and alert. Normal speech. (Sal Haro MD, R2) A/P Assessment and Plan A 62-year-old male with history of diabetes, peripheral vascular disease, chronic wound presents with osteomyelitis of left foot. Admit for surgery and IV antibiotics. Discharge Planning Pending surgeries (Sal Haro MD, R2) Problem List: (1) Osteomyelitis ICD Codes: M86.9 - Osteomyelitis, unspecified Status: Acute Plan: History of hallux amputation February due to osteomyelitis now with chronic wound. Foot xray: Osteomyelitis involving the distal second metatarsal, distal first metatarsal, base of proximal phalanx second toe. Extensive vascular calcification noted. Foot MRI: osteomyelitis involving first metatarsal stump, second and third distal metatarsal bones and second proximal phalanx. ESR>140. WBC 13.2. CRP 7.18 on admission. -Vancomycin IV-pharmacy consulted -Cefepime 2g q12H -Wound culture pending -Blood cultures NGTD -Consult podiatry-appreciate recs -Plan for left partial first and second ray amputations today -PT/OT -Continue home gabapentin -[place], morphine PRN pain (2) PVD (peripheral vascular disease) ICD Codes: I73.9 - Peripheral vascular disease, unspecified Status: Chronic Plan: History of peripheral vascular disease with femoral endarterectomy earlier this year in February. Has had bulge at site of surgery since then. Ultrasound: pseudoaneurysm in the left inguinal region. -Consult vascular surgery for recs -Plan for surgical intervention after podiatry surgery -Continue home Brilinta -Monitor clinically (3) DM (diabetes mellitus) ICD Codes: E11.9 - Type 2 diabetes mellitus without complications Status: Chronic Plan: Hold home metformin and glipizide -Low dose sliding scale insulin -Regular accuchecks (4) CHF (congestive heart failure) ICD Codes: I50.9 - Heart failure, unspecified Status: Chronic Plan: History of CHF with AICD placement and CABG in the past -Continue home meds: lasix, spironolactone, coreg -Monitor vitals -Consider cardiology consult if worsening clinically (5) Anemia ICD Codes: D64.9 - Anemia, unspecified Plan: Hb of 9.5 on admission. No signs of bleeding. Hgb of 9.1 three months ago. No signs of active bleeding -Continue to monitor -Daily CBCs (6) Depression ICD Codes: F32.9 - Major depressive disorder, single episode, unspecified Status: Chronic Plan: Continue home Effexor Clonazepam PRN (7) FEN Status: Acute Plan: Fluids: PO, limit fluids due to CHF Electrolytes: Na 133, improving. Nutrition: heart healthy diet, NPO after midnight DVT ppx: SCDs, hold chemoppx for surgery (Sal Haro MD, R2) Problem List: (1) Osteomyelitis ICD Codes: M86.9 - Osteomyelitis, unspecified Status: Acute Plan: History of hallux amputation February due to osteomyelitis now with chronic wound. Foot xray: Osteomyelitis involving the distal second metatarsal, distal first metatarsal, base of proximal phalanx second toe. Extensive vascular calcification noted. Foot MRI: osteomyelitis involving first metatarsal stump, second and third distal metatarsal bones and second proximal phalanx. ESR>140. WBC 13.2. CRP 7.18 on admission. -Vancomycin IV-pharmacy consulted -Cefepime 2g q12H -Wound culture pending -Blood cultures NGTD -Consult podiatry-appreciate recs -Plan for left partial first and second ray amputations today -PT/OT -Continue home gabapentin -[place], morphine PRN pain (2) PVD (peripheral vascular disease) ICD Codes: I73.9 - Peripheral vascular disease, unspecified Status: Chronic Plan: History of peripheral vascular disease with femoral endarterectomy earlier this year in February. Has had bulge at site of surgery since then. Ultrasound: pseudoaneurysm in the left inguinal region. -Consult vascular surgery for recs -Plan for surgical intervention after podiatry surgery -Continue home Brilinta -Monitor clinically (3) DM (diabetes mellitus) ICD Codes: E11.9 - Type 2 diabetes mellitus without complications Status: Chronic Plan: Hold home metformin and glipizide -Low dose sliding scale insulin -Regular accuchecks (4) CHF (congestive heart failure) ICD Codes: I50.9 - Heart failure, unspecified Status: Chronic Plan: History of CHF with AICD placement and CABG in the past -Continue home meds: lasix, spironolactone, coreg -Monitor vitals -Consider cardiology consult if worsening clinically (5) Anemia ICD Codes: D64.9 - Anemia, unspecified Plan: Hb of 9.5 on admission. No signs of bleeding. Hgb of 9.1 three months ago. No signs of active bleeding -Continue to monitor -Daily CBCs (6) Depression ICD Codes: F32.9 - Major depressive disorder, single episode, unspecified Status: Chronic Plan: Continue home Effexor Clonazepam PRN (7) FEN Status: Acute Plan: Fluids: PO, limit fluids due to CHF Electrolytes: Na 133, improving. Nutrition: heart healthy diet, NPO after midnight DVT ppx: SCDs, hold chemoppx for surgery See the residents documentation for details. I saw and evaluated the patient regarding the navas portions of this evaluation and agree with the residents findings and plans as written. Parts of this note were created using [employer] voice recognition software program. While efforts were made to correct any mistakes made by this software, some mistakes, errors, and omissions may remain in the final note that were not caught when the note was originally created. Plan of care was discussed and agreed upon with the patient as specifically documented in the above note. An opportunity to ask questions with explanation was provided. Patient voiced understanding on all information reviewed and discussed. (Ghassan Mai MD) Problem Qualifiers (1) Osteomyelitis: Qualified Codes: M86.9 - Osteomyelitis, unspecified (2) DM (diabetes mellitus): Qualified Codes: E11.59 - Type 2 diabetes mellitus with other circulatory complications (3) CHF (congestive heart failure): Qualified Codes: I50.9 - Heart failure, unspecified Sal Haro MD, R2 Jul 13, 2017 14:30 Ghassan Mai MD Jul 14, 2017 10:10
[2017-07-13] MEDS ORDERED: ACETAMINOPHEN 1000 MG/100 ML 100 ML IV ONE (16:22)
[2017-07-13] MEDS ORDERED: BUPIVACAINE HCL PF 0.5% 30 ML VIAL ONE (16:28)
[2017-07-13] MEDS ORDERED: HYDROmorphone HCL PF 2 MG/ML VIAL ONE (17:03)
[2017-07-13] MEDS ORDERED: DO NOT ADM ANY ANTICOAGULANT DRUGS PRN (17:54)
--- NOTE | 2017-07-13 18:53 | RADRPT ---
EXAM DATE/TIME: 07/13/2017 18:12 [facility] COMPARISON: FOOT LEFT COMPLETE ([id number]), March 06, 2017, 17:50. INDICATIONS : Status post op left foot. Partial 1st and 2nd digit amputation. MEDICAL HISTORY : None. SURGICAL HISTORY : None. ENCOUNTER: Subsequent ACUITY: 1 day PAIN SCORE: Non-responsive. LOCATION: Left Foot FINDINGS: Three view examination of the left foot demonstrates amputation of the distal first and second metata rsals and first and second toes. Probable wound vacuum present. CONCLUSION: 1. Amputation of first and second toes and most of the metatarsals as above. Rivas Triplett MD on July 13, 2017 at 18:49 Board Certified Radiologist. This report was verified electronically.
--- NOTE | 2017-07-13 20:29 | MP ---
cc: BUFFY OTERO DPM DATE OF SURGERY 07/13/[address] Chris Otero [employer] Staff provided first sampler, Jose PREOPERATIVE DIAGNOSIS 1. Left foot osteomyelitis first ray. 2. Left foot osteomyelitis second ray. POSTOPERATIVE DIAGNOSES 1. Left foot osteomyelitis first ray. 2. Left foot osteomyelitis second ray. PROCEDURE 1. Right foot partial first ray amputation 2. Right foot partial second ray amputation 3. Wound VAC application PATHOLOGY SENT First and second rays are sent to pathology and clean margins of both were sent to microbiology. ESTIMATED BLOOD LOSS 100 mL ANESTHESIA General HEMOSTASIS Anatomical dissection MATERIALS USED 2-0 Prolene, 3-0 Prolene, KCI would VAC COMPLICATIONS None INDICATIONS Mr. Ovalle is a 62-year-old male patient well-known to me from the hospital. He had a chronic ulceration which has deteriorated and become deeply infected over the last few weeks. The patient does have some compromised blood flow but after speaking with Dr. Fleming the patient, myself and Dr. Fleming all felt that a salvage amputation was worthwhile. The patient is aware if this fails there is a strong chance he will need a [id number] amputation. The consent was signed. The procedure was explained. No guarantees were given. PROCEDURE IN DETAIL Under mild sedation, the patient was brought into the operating room, placed on the operating table in supine position. Following IV sedation, pneumatic calf tourniquet was placed around the left calf. The foot was scrubbed, prepped and draped in the usual aseptic manner. Attention was directed to the distal medial aspect of the foot where there was approximately 5 cm x 4 cm x 1 cm foul purulent ulceration with exposed bone. 2 cm elliptical incisions were made, one dorsally, one plantarly from proximal medial to distal lateral encompassing the second digit. This was deepened through skin and subcutaneous tissue with care being taken to identify and retract any vital neurovascular structures. The wound was excised. The second digit was disarticulated and all was sent to pathology. The first metatarsal was cut at the mid aspect of the shaft of the second metatarsal with an oscillating saw from dorsal distal to plantar proximal. This was also sent to pathology. A small piece of bone was taken from the clean margins and sent to microbiology for further evaluation. Any and all nonviable tissue was removed using a rongeur. There was a small area of liquefied necrosed tissue close to the metatarsal head but the metatarsal head was not exposed after debridement. The area was flushed with copious amounts of sterile saline using pulse lavage. It was closed 75% of the way with minimal tension on the bone. The remaining 25% had to have a wound VAC applied. There was excellent seal on the wound VAC and it was inflated to 225 mmHg. Operative padding and dressings were applied. The patient tolerated procedure and the anesthesia well. He will recover in the PACU for a period of time before being discharged back to his room with postoperative instructions. Buffy ZAFAR/SA /5:33 PM /8:01 PM MTDD
[2017-07-13] MEDS: VANCOMYCIN INJ 1,750 MG in SODIUM CHLORID 0.9% 500 ML INJ 500 ML IV SCH (20:57)
[2017-07-13] MEDS: VENLAFAXINE HCL XR 75 MG CAP PO SCH (20:58)
[2017-07-13] MEDS: PRAVASTATIN SOD 80 MG TAB PO SCH (20:58)
[2017-07-13] MEDS: EZETIMIBE 10 MG TAB PO SCH (20:59)
[2017-07-14] VITALS (11 sets, daily range): BP systolic 92–122; BP diastolic 51–60; PULSE 61–77; RESP 17–18; TEMP 97.3–98.3; O2SAT 96–99
[2017-07-14] MEDS: CEFEPIME INJ 2,000 MG in SODIUM CHLORIDE 0.9% INJ 100 ML IV SCH ×2 (03:26→14:42)
[2017-07-14] MEDS: ACETAMINOPHEN/HYDROcodone 325 MG/7.5 MG TAB PO PRN ×3 (04:29→21:26)
[2017-07-14] MEDS: INSULIN ASPART SUPPLEMENTAL SCALE SQ SCH ×4 (08:50→21:30)
[2017-07-14] MEDS: SODIUM CHLORIDE 0.9% FLUSH 10 ML FLUSH IV FLUSH SCH ×2 (08:50→21:00)
[2017-07-14] MEDS: ASPIRIN 81 MG CHEW TAB PO SCH (08:51)
[2017-07-14] MEDS: TICAGRELOR 90 MG TAB PO SCH ×2 (08:51→21:29)
[2017-07-14] MEDS: FUROSEMIDE 40 MG TAB PO SCH (08:52)
[2017-07-14] MEDS: CARVEDILOL 6.25 MG TAB PO SCH ×2 (08:52→21:25)
[2017-07-14] MEDS: LOSARTAN 25 MG TAB PO SCH (08:52)
[2017-07-14] MEDS: DOCUSATE SODIUM 50 MG/SENNA 8.6 MG TAB PO SCH ×2 (08:52→21:25)
[2017-07-14] MEDS: GABAPENTIN 100 MG CAP PO SCH ×4 (08:52→21:25)
[2017-07-14] MEDS: FERROUS SULFATE 325 MG (65 MG ELEMENTAL IRON) TAB PO SCH (08:52)
[2017-07-14] MEDS: clonazePAM 0.5 MG TAB PO PRN ×2 (08:57→21:25)
[2017-07-14] MEDS: SPIRONOLACTONE 25 MG TAB PO SCH ×2 (09:02→17:11)
--- NOTE | 2017-07-14 09:59 | HHI.FPPN ---
Subjective Remarks Patient seen and examined this morning. States he has no pain in his foot, leg. He reports is currently eating well, drinking well. No bowel movement since his surgery yesterday however he is passing gas at this time. No nausea, vomiting, fever, chills, abdominal pain, chest pain, shortness of breath, sweating. No other complaints today. (Levi Carter MD R1) Objective Vitals Vital Signs Date Time Temp Pulse Resp B/P (MAP) Pulse Ox O2 Delivery O2 Flow Rate FiO2 07/14/17 08:04 97.3 77 18 122/58 (79) 96 07/14/17 06:06 64 07/14/17 04:00 97.3 66 17 111/57 (75) 99 07/14/17 04:00 Room Air 07/14/17 00:00 97.4 65 17 116/60 (78) 98 07/14/17 00:00 Room Air 07/13/17 23:47 63 07/13/17 20:00 97.3 68 18 110/54 (72) 96 07/13/17 20:00 Room Air 07/13/17 18:30 98.3 60 14 95/53 (67) 93 Room Air 07/13/17 18:15 60 14 96/52 (67) 95 Room Air 07/13/17 18:00 60 12 96/53 (67) 94 Room Air 07/13/17 17:51 98.2 60 16 110/58 (75) 96 Nasal Cannula 3 Manual Cuff/Palpation 07/13/17 16:00 97.7 70 20 112/55 (74) 94 07/13/17 15:41 97 07/13/17 12:00 61 07/13/17 12:00 97.4 64 20 103/55 (71) 97 I/O 07/13/17 07/13/17 07/13/17 07/14/17 07/14/17 07/14/17 07:00 15:00 23:00 07:00 15:00 23:00 Intake Total 570 ml 400 ml 1267.5 ml Output Total 1600 ml 800 ml Balance 570 ml -1200 ml 467.5 ml Intake Oral 570 ml 0 ml 650 ml IV Total 617.5 ml Other 400 ml Output Urine Total 1500 ml 800 ml Estimated Blood Loss 100 ml # Voids 2 # Bowel Movements 2 0 0 (Levi Carter MD R1) Result Diagram: 07/13/17 0503 07/13/17 0500 Imaging Last 48 hours Impressions Foot X-Ray 07/13/17 0000 Signed Impressions: Service Date/Time: Thursday, July 13, 2017 18:12 - CONCLUSION: 1. Amputation of first and second toes and most of the metatarsals as above. Rivas Triplett MD Objective Remarks GENERAL: This is a well-nourished, pleasant, well-developed patient, in no apparent distress. SKIN: Cool and dry. CARDIOVASCULAR: Regular rate and rhythm without murmurs, gallops, or rubs. RESPIRATORY: Clear to auscultation. Breath sounds equal bilaterally. No wheezes , rales, or rhonchi. GASTROINTESTINAL: Abdomen soft, non-tender, nondistended. No guarding. Left groin bulge present without tenderness. MUSCULOSKELETAL: Right lower extremity without lesions or wounds. Left foot s/p hallux amputation. Large wound over distal/medial foot open with soft tissue and bone visible, not visualized today. NEUROLOGICAL: Awake and alert. Normal speech. Procedures Left foot first and second ray partial amputation 07/13/17 (Levi Carter MD R1) A/P Assessment and Plan A 62-year-old male with history of diabetes, peripheral vascular disease, chronic wound presents with osteomyelitis of left foot. Admit for surgery and IV antibiotics. Discharge Planning Pending surgeries (Levi Carter MD R1) Problem List: (1) Osteomyelitis ICD Codes: M86.9 - Osteomyelitis, unspecified Status: Acute Plan: History of hallux amputation February due to osteomyelitis now with chronic wound. Foot xray: Osteomyelitis involving the distal second metatarsal, distal first metatarsal, base of proximal phalanx second toe. Extensive vascular calcification noted. Foot MRI: osteomyelitis involving first metatarsal stump, second and third distal metatarsal bones and second proximal phalanx. ESR>140. WBC 13.2. CRP 7.18 on admission. -Vancomycin IV-pharmacy consulted -Cefepime 2g q12H -Wound culture pending -Blood cultures NGTD -Consult podiatry-appreciate recs -Left first and second ray amputations 07/13/17 -PT/OT -Continue home gabapentin -[place], morphine PRN pain (2) PVD (peripheral vascular disease) ICD Codes: I73.9 - Peripheral vascular disease, unspecified Status: Chronic Plan: History of peripheral vascular disease with femoral endarterectomy earlier this year in February. Has had bulge at site of surgery since then. Ultrasound: pseudoaneurysm in the left inguinal region. -Consult vascular surgery for recs -Plan for surgical intervention after podiatry surgery -Continue home Brilinta -Monitor clinically (3) DM (diabetes mellitus) ICD Codes: E11.9 - Type 2 diabetes mellitus without complications Status: Chronic Plan: Hold home metformin and glipizide, blood sugars have run up into the 400s as of 07/14/17 -Low dose sliding scale insulin -Levemir 15 units at bedtime added 07/14/17 -Regular accuchecks (4) CHF (congestive heart failure) ICD Codes: I50.9 - Heart failure, unspecified Status: Chronic Plan: History of CHF with AICD placement and CABG in the past -Continue home meds: lasix, spironolactone, coreg -Monitor vitals -Consider cardiology consult if worsening clinically (5) Anemia ICD Codes: D64.9 - Anemia, unspecified Plan: Hb of 9.5 on admission. No signs of bleeding. Hgb of 9.1 three months ago. No signs of active bleeding -Continue to monitor -Daily CBCs (6) Depression ICD Codes: F32.9 - Major depressive disorder, single episode, unspecified Status: Chronic Plan: Continue home Effexor Clonazepam PRN (7) FEN Status: Acute Plan: Fluids: PO, limit fluids due to CHF Electrolytes: Na 133, improving. Nutrition: heart healthy diet, NPO after midnight DVT ppx: SCDs, hold chemoppx for surgery (Levi Carter MD R1) Problem List: (1) Osteomyelitis ICD Codes: M86.9 - Osteomyelitis, unspecified Status: Acute Plan: History of hallux amputation February due to osteomyelitis now with chronic wound. Foot xray: Osteomyelitis involving the distal second metatarsal, distal first metatarsal, base of proximal phalanx second toe. Extensive vascular calcification noted. Foot MRI: osteomyelitis involving first metatarsal stump, second and third distal metatarsal bones and second proximal phalanx. ESR>140. WBC 13.2. CRP 7.18 on admission. -Vancomycin IV-pharmacy consulted -Cefepime 2g q12H -Wound culture pending -Blood cultures NGTD -Consult podiatry-appreciate recs -Left first and second ray amputations 07/13/17 -PT/OT -Continue home gabapentin -[place], morphine PRN pain (2) PVD (peripheral vascular disease) ICD Codes: I73.9 - Peripheral vascular disease, unspecified Status: Chronic Plan: History of peripheral vascular disease with femoral endarterectomy earlier this year in February. Has had bulge at site of surgery since then. Ultrasound: pseudoaneurysm in the left inguinal region. -Consult vascular surgery for recs -Plan for surgical intervention after podiatry surgery -Continue home Brilinta -Monitor clinically (3) DM (diabetes mellitus) ICD Codes: E11.9 - Type 2 diabetes mellitus without complications Status: Chronic Plan: Hold home metformin and glipizide, blood sugars have run up into the 400s as of 07/14/17 -Low dose sliding scale insulin -Levemir 15 units at bedtime added 07/14/17 -Regular accuchecks (4) CHF (congestive heart failure) ICD Codes: I50.9 - Heart failure, unspecified Status: Chronic Plan: History of CHF with AICD placement and CABG in the past -Continue home meds: lasix, spironolactone, coreg -Monitor vitals -Consider cardiology consult if worsening clinically (5) Anemia ICD Codes: D64.9 - Anemia, unspecified Plan: Hb of 9.5 on admission. No signs of bleeding. Hgb of 9.1 three months ago. No signs of active bleeding -Continue to monitor -Daily CBCs (6) Depression ICD Codes: F32.9 - Major depressive disorder, single episode, unspecified Status: Chronic Plan: Continue home Effexor Clonazepam PRN (7) FEN Status: Acute Plan: Fluids: PO, limit fluids due to CHF Electrolytes: Na 133, improving. Nutrition: heart healthy diet, NPO after midnight DVT ppx: SCDs, hold chemoppx for surgery See the residents documentation for details. I saw and evaluated the patient regarding the navas portions of this evaluation and agree with the residents findings and plans as written. Parts of this note were created using [employer] voice recognition software program. While efforts were made to correct any mistakes made by this software, some mistakes, errors, and omissions may remain in the final note that were not caught when the note was originally created. Plan of care was discussed and agreed upon with the patient as specifically documented in the above note. An opportunity to ask questions with explanation was provided. Patient voiced understanding on all information reviewed and discussed. (Ghassan Mai MD) Problem Qualifiers (1) Osteomyelitis: Qualified Codes: M86.9 - Osteomyelitis, unspecified (2) DM (diabetes mellitus): Qualified Codes: E11.59 - Type 2 diabetes mellitus with other circulatory complications (3) CHF (congestive heart failure): Qualified Codes: I50.9 - Heart failure, unspecified Levi Carter MD R1 Jul 14, 2017 09:59 Ghassan Mai MD Jul 14, 2017 10:16
--- NOTE | 2017-07-14 10:06 | PD.CAR.PN ---
CVT Progress Note Subjective/Hospital Course: referral received Full consult ROMAIN Gutierrez 07/12/16 Patient with severe peripheral vascular disease who underwent in February last year common femoral and external iliac artery endarterectomy with patch angioplasty and SFA and distal balloon angioplasty. This was followed by left hallux amputation by podiatry. Patient did well as far as the vascular supply goes and he has dopplerable proximal and distal pulses Foot is warm and capillary refill is intact No dependent rubor or elevation pallor is noted Nonetheless patient is a nonhealing side of the left hallux amputation with osteomyelitis At this point given the circumstances I definitely agree with Dr. Otero that patient should have a more proximal foot /transmetatarsal amputation, rather than a BKA. It may come to the point for patient will need a BKA but in face of good blood supply and certainly would try to do something less first. 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 Pseudoaneurysm is fairly large and therefore not amiable to endovascular thrombosis. Would go ahead with podiatric surgery at this time and I will follow with the pseudoaneurysm repair Sunday or Sunday06/13/18 Patient underwent successful forefoot amputation yesterday. Apparently well perfused distally as we expected. Will gige patient a few days to recover and proceed with L femoral pseudoaneurysm repair Sunday. This is likely a detachment of the bovine patch and needs to be addressed by open surgical repair. Objective: Vital Signs Date Time Temp Pulse Resp B/P (MAP) Pulse Ox O2 Delivery O2 Flow Rate FiO2 07/14/17 08:04 97.3 77 18 122/58 (79) 96 07/14/17 06:06 64 07/14/17 04:00 97.3 66 17 111/57 (75) 99 07/14/17 04:00 Room Air 07/14/17 00:00 97.4 65 17 116/60 (78) 98 07/14/17 00:00 Room Air 07/13/17 23:47 63 07/13/17 20:00 97.3 68 18 110/54 (72) 96 07/13/17 20:00 Room Air 07/13/17 18:30 98.3 60 14 95/53 (67) 93 Room Air 07/13/17 18:15 60 14 96/52 (67) 95 Room Air 07/13/17 18:00 60 12 96/53 (67) 94 Room Air 07/13/17 17:51 98.2 60 16 110/58 (75) 96 Nasal Cannula 3 Manual Cuff/Palpation 07/13/17 16:00 97.7 70 20 112/55 (74) 94 07/13/17 15:41 97 07/13/17 12:00 61 07/13/17 12:00 97.4 64 20 103/55 (71) 97 Result Diagram: 07/13/17 0503 07/13/17 0500 Trisha Fleming MD Jul 14, 2017 10:06
[2017-07-14 10:55] LABS: AUTOMATED NEUTROPHIL # 11.9 TH/MM3 (1.8-7.7); BASOPHIL % 0.2 % (0.0-2.0); EOSINOPHIL # 0.1 TH/MM3 (0-0.4); EOSINOPHIL % 0.4 % (0.0-4.0); HEMATOCRIT 26.4 % (39.0-51.0); HEMOGLOBIN 8.9 GM/DL (13.0-17.0); LYMPH % 5.5 % (9.0-44.0); LYMPHOCYTE # 0.7 TH/MM3 (1.0-4.8); MEAN CELL VOLUME 79.9 FL (80.0-100.0); MEAN CORPUSCULAR HEMOGLOBIN 26.9 PG (27.0-34.0); MEAN CORPUSCULAR HGB CONC 33.7 % (32.0-36.0); MEAN PLATELET VOLUME 7.2 FL (7.0-11.0); MONO % 3.2 % (0.0-8.0); MONOCYTE # 0.4 TH/MM3 (0-0.9); NEUT % 90.7 % (16.0-70.0); PLATELET COUNT 402 TH/MM3 (150-450); RED CELL DISTRIBUTION WIDTH 16.1 % (11.6-17.2); WHITE BLOOD COUNT 13.2 TH/MM3 (4.0-11.0)
[2017-07-14 11:22] LABS: BICARBONATE 19.6 MEQ/L (21.0-32.0); CALCIUM 9.2 MG/DL (8.5-10.1); CREATININE 1.21 MG/DL (0.60-1.30)
--- NOTE | 2017-07-14 11:49 | PD.POD ---
Subjective Podiatric Problems POD #1 Left foot partial first and second ray amps with VAC placement. Pt states that pain has been minimal. He denies any n/v/f/h/c/sob. He is scheduled to have sx with on Sunday for an aneurysm in the groin. Pain score: 3 Past Med/Surg/Social History Past Medical History Endocrine: REPORTS HX OF: Diabetes mellitus Respiratory: REPORTS HX OF: Other respiratory history Cardiovascular: REPORTS HX OF: Atrial fibrillation, Heart failure, Hypertension , Peripheral vascular dz Genitourinary: REPORTS HX OF: Kidney disease Cancer/Hematology: REPORTS HX OF: Anemia Neurologic: REPORTS HX OF: Peripheral neuropathy Psychiatric: REPORTS HX OF: Depression Genetic/metabolic: DENIES HX OF: Cystic fibrosis Past Surgical History Cardiovascular: REPORTS HX OF: Angioplasty, CABG surgery, Carotid endarterectomy, Coronary stent, Pacemaker Gastrointestinal: DENIES HX OF: Colectomy, total Social History Smoking Status: Former Smoker Objective Vital Signs Vital Signs Date Time Temp Pulse Resp B/P (MAP) Pulse Ox O2 Delivery O2 Flow Rate FiO2 07/14/17 10:57 73 07/14/17 10:57 96 Room Air 07/14/17 08:04 97.3 77 18 122/58 (79) 96 07/14/17 06:06 64 07/14/17 04:00 97.3 66 17 111/57 (75) 99 07/14/17 04:00 Room Air 07/14/17 00:00 97.4 65 17 116/60 (78) 98 07/14/17 00:00 Room Air 07/13/17 23:47 63 07/13/17 20:00 97.3 68 18 110/54 (72) 96 07/13/17 20:00 Room Air 07/13/17 18:30 98.3 60 14 95/53 (67) 93 Room Air 07/13/17 18:15 60 14 96/52 (67) 95 Room Air 07/13/17 18:00 60 12 96/53 (67) 94 Room Air 07/13/17 17:51 98.2 60 16 110/58 (75) 96 Nasal Cannula 3 Manual Cuff/Palpation 07/13/17 16:00 97.7 70 20 112/55 (74) 94 07/13/17 15:41 97 07/13/17 12:00 61 07/13/17 12:00 97.4 64 20 103/55 (47) 97 Coded Allergies: cyclobenzaprine (Verified Allergy, Severe, Flushing, 07/11/17) REDNESS lisinopril (Verified Allergy, Unknown, Swelling, 07/11/17) ANGIOEDEMA Exam-Podiatry Constitutional Details Exam limited due to wound VAC placement. VAC with ~50ml of sanginous drainage. CFT< 3 secs. Calf is supple and nontender to compression. Assessment & Plan A/P 1) s/p left partial 1st and 2nd ray amps, 07/13/16 -M/W/F wound VAC changes, nursing orders placed, VAC paperwork on chart -clean margin bone biopsies pending -cont iv abx currently -heel WBing only to LLE -will need home VAC and HHC at time of d/c, possible home iv abx pending results of biopsies -f/u with 5 days after d/c Buffy Otero DPM Jul 14, 2017 11:49
--- NOTE | 2017-07-14 11:53 | HHI.FF ---
Face to Face Verification Diagnosis: (1) Osteomyelitis (2) Left-sided weakness (3) Left foot infection (4) Diabetic foot ulcer Physical Therapy Order: Improve ambulation (LLE heel WBing only in surgical shoe), Strength and gait training Home Health Nursing Order: Wound care and dressing changes (M/W/F adaptic over sutures, sponge directly over wound, 125mmHh continous) I have seen patient Omar Ovalle on 07/14/17. My clinical findings support the need for the requested home health care services because: Ltd mobility - disease progression Deconditioned w/ increased weakness Limited ability to care for self High risk of falls Infection w/ risk of complications I certify that my clinical findings support that this patient is homebound because: Post-op weakness Unsteady gait/balance Unsafe to leave home unassisted Buffy Otero DPM Jul 14, 2017 11:53
[2017-07-14] MEDS ORDERED: PHARMACY ORDERED LAB ONE (16:45)
[2017-07-14] MEDS: VANCOMYCIN INJ 1,750 MG in SODIUM CHLORID 0.9% 500 ML INJ 500 ML IV SCH (18:29)
[2017-07-14] MEDS ORDERED: INSULIN DETEMIR 100 UNITS/ML VIAL SQ SCH (21:00)
[2017-07-14] MEDS: EZETIMIBE 10 MG TAB PO SCH (21:25)
[2017-07-14] MEDS: VENLAFAXINE HCL XR 75 MG CAP PO SCH (21:29)
[2017-07-14] MEDS: PRAVASTATIN SOD 80 MG TAB PO SCH (21:29)
[2017-07-15] VITALS (13 sets, daily range): BP systolic 102–122; BP diastolic 55–61; PULSE 60–71; RESP 16–20; TEMP 97.4–98.3; O2SAT 95–99
[2017-07-15] MEDS: ACETAMINOPHEN/HYDROcodone 325 MG/7.5 MG TAB PO PRN ×3 (03:23→21:24)
[2017-07-15] MEDS: CEFEPIME INJ 2,000 MG in SODIUM CHLORIDE 0.9% INJ 100 ML IV SCH ×2 (03:23→14:38)
[2017-07-15 08:30] LABS: HEMOGLOBIN 8.4 GM/DL (13.0-17.0); MEAN CELL VOLUME 79.7 FL (80.0-100.0); MEAN CORPUSCULAR HEMOGLOBIN 26.8 PG (27.0-34.0); MEAN CORPUSCULAR HGB CONC 33.6 % (32.0-36.0); PLATELET COUNT 358 TH/MM3 (150-450); RED BLOOD COUNT 3.13 MIL/MM3 (4.50-5.90); RED CELL DISTRIBUTION WIDTH 16.3 % (11.6-17.2); WHITE BLOOD COUNT 11.6 TH/MM3 (4.0-11.0)
[2017-07-15] MEDS: DOCUSATE SODIUM 50 MG/SENNA 8.6 MG TAB PO SCH ×2 (09:00→21:23)
[2017-07-15 09:20] LABS: BICARBONATE 20.1 MEQ/L (21.0-32.0); CALCIUM 8.9 MG/DL (8.5-10.1); CREATININE 0.99 MG/DL (0.60-1.30)
[2017-07-15] MEDS: INSULIN ASPART SUPPLEMENTAL SCALE SQ SCH ×4 (09:48→21:25)
[2017-07-15] MEDS: SODIUM CHLORIDE 0.9% FLUSH 10 ML FLUSH IV FLUSH SCH ×2 (09:48→21:23)
[2017-07-15] MEDS: FUROSEMIDE 40 MG TAB PO SCH (09:49)
[2017-07-15] MEDS: FERROUS SULFATE 325 MG (65 MG ELEMENTAL IRON) TAB PO SCH (09:49)
[2017-07-15] MEDS: CARVEDILOL 6.25 MG TAB PO SCH ×2 (09:49→21:24)
[2017-07-15] MEDS: GABAPENTIN 100 MG CAP PO SCH ×4 (09:49→21:23)
[2017-07-15] MEDS: TICAGRELOR 90 MG TAB PO SCH ×2 (09:49→21:24)
[2017-07-15] MEDS: SPIRONOLACTONE 25 MG TAB PO SCH ×2 (09:49→19:00)
[2017-07-15] MEDS: ASPIRIN 81 MG CHEW TAB PO SCH (09:50)
[2017-07-15] MEDS: LOSARTAN 25 MG TAB PO SCH (09:50)
--- NOTE | 2017-07-15 10:35 | HHI.FPPN ---
Subjective Remarks Patient seen and examined this morning. Patient denies any pain in either of his leg or feet. He denies any pain in his groin area, however he states he can tell that it is there. He does have pain in his left groin area with specific activity, which is baseline for him. He is ambulating with assistance and without difficulty. He is voiding without difficulty. Denies any fever/chills. Denies any chest pain/shortness of breath/dizziness. (Vicky Mejia MD R2) Objective Vitals Vital Signs Date Time Temp Pulse Resp B/P (MAP) Pulse Ox O2 Delivery O2 Flow Rate FiO2 07/15/17 08:04 97.4 69 16 122/61 (81) 97 07/15/17 04:08 65 07/15/17 04:00 97.5 67 17 106/55 (72) 95 07/15/17 04:00 Room Air 07/15/17 00:24 63 07/15/17 00:00 Room Air 07/15/17 00:00 98.3 71 17 105/56 (72) 97 07/14/17 20:08 66 07/14/17 20:00 Room Air 07/14/17 20:00 98.3 70 17 100/56 (71) 97 07/14/17 18:30 61 07/14/17 16:04 97.9 66 18 104/58 (73) 98 07/14/17 12:40 20 07/14/17 12:31 97.8 66 18 92/51 (65) 97 07/14/17 12:00 65 07/14/17 10:57 73 07/14/17 10:57 96 Room Air I/O 07/14/17 07/14/17 07/14/17 07/15/17 07/15/17 07/15/17 07:00 15:00 23:00 07:00 15:00 23:00 Intake Total 1267.5 ml 1357.5 ml 300 ml Output Total 800 ml 525 ml 600 ml Balance 467.5 ml 832.5 ml -300 ml Intake Oral 650 ml 840 ml 300 ml IV Total 617.5 ml 517.5 ml Output Urine Total 800 ml 525 ml 600 ml # Bowel Movements 0 0 0 (Vicky Mejia MD R2) Result Diagram: 07/15/17 0745 07/15/17 0745 Objective Remarks GENERAL: This is a well-nourished, pleasant, well-developed patient, in no apparent distress. SKIN: Cool and dry. CARDIOVASCULAR: Regular rate and rhythm without murmurs, gallops, or rubs. RESPIRATORY: Clear to auscultation. Breath sounds equal bilaterally. No wheezes , rales, or rhonchi. GASTROINTESTINAL: Abdomen soft, non-tender, nondistended. No guarding. Left groin bulge present without tenderness. MUSCULOSKELETAL: Right lower extremity without lesions or wounds. Left foot in cast to above ankle. Pt can move foot on command, without pain. NEUROLOGICAL: Awake and alert. Normal speech. Procedures Left foot first and second ray partial amputation 07/13/17 (Vicky Mejia MD R2) A/P Assessment and Plan A 62-year-old male with history of diabetes, peripheral vascular disease, chronic wound presents with osteomyelitis of left foot, s/p left fist and second ray amputations on 07/13/17. Pending left inguinal pseudoaneurysm repair on 07/16/17 Discharge Planning Pending surgeries and postop recovery (Vicky Mejia MD R2) Problem List: (1) Osteomyelitis ICD Codes: M86.9 - Osteomyelitis, unspecified Status: Acute Plan: History of hallux amputation February due to osteomyelitis now with chronic wound. Foot xray: Osteomyelitis involving the distal second metatarsal, distal first metatarsal, base of proximal phalanx second toe. Extensive vascular calcification noted. Foot MRI: osteomyelitis involving first metatarsal stump, second and third distal metatarsal bones and second proximal phalanx. ESR>140. WBC 13.2. CRP 7.18 on admission. -Vancomycin IV-pharmacy consulted -Cefepime 2g q12H -Wound culture pending -Blood cultures NGTD x 3days -Consult podiatry-appreciate recs -Left first and second ray amputations 07/13/17 -PT/OT -Continue home gabapentin -[place], morphine PRN pain (2) PVD (peripheral vascular disease) ICD Codes: I73.9 - Peripheral vascular disease, unspecified Status: Chronic Plan: History of peripheral vascular disease with femoral endarterectomy earlier this year in February. Has had bulge at site of surgery since then. Ultrasound: pseudoaneurysm in the left inguinal region. -Consult vascular surgery for recs -Plan for surgical intervention tomorrow 07/16/17 -Continue home Brilinta -Monitor clinically (3) DM (diabetes mellitus) ICD Codes: E11.9 - Type 2 diabetes mellitus without complications Status: Chronic Plan: Hold home metformin and glipizide - BS range in the last 24h [195-404], Fasting BS this AM in 195 -Low dose sliding scale insulin -Levemir 15 units at bedtime added 07/14/17 -Increase to Levemir 25 units for 07/15/2017 - Add pre-prandial short-acting insulin Aspart 8U w/ meals - Insulin low-dose sliding scale to supplement - f/u accuchecks tomorrow to adjust (4) CHF (congestive heart failure) ICD Codes: I50.9 - Heart failure, unspecified Status: Chronic Plan: History of CHF with AICD placement and CABG in the past -Continue home meds: lasix, spironolactone, coreg -Monitor vitals -Consider cardiology consult if worsening clinically (5) Anemia ICD Codes: D64.9 - Anemia, unspecified Plan: Hb of 9.5 on admission, 8.4 today. No signs of bleeding. Hgb of 9.1 three months ago. No signs of active bleeding - due to cardiac history, will transfuse for Hb <8.0 -f/u Hemoccult -f/u H&H @ 2:00PM (6) Depression ICD Codes: F32.9 - Major depressive disorder, single episode, unspecified Status: Chronic Plan: Continue home Effexor Clonazepam PRN (7) FEN Status: Acute Plan: Fluids: PO, limit fluids due to CHF Electrolytes: Na 133, improving. Nutrition: heart healthy diet, NPO after midnight DVT ppx: SCDs, hold chemoppx for surgery (Vicky Mejia MD R2) Problem List: (1) Osteomyelitis ICD Codes: M86.9 - Osteomyelitis, unspecified Status: Acute Plan: History of hallux amputation February due to osteomyelitis now with chronic wound. Foot xray: Osteomyelitis involving the distal second metatarsal, distal first metatarsal, base of proximal phalanx second toe. Extensive vascular calcification noted. Foot MRI: osteomyelitis involving first metatarsal stump, second and third distal metatarsal bones and second proximal phalanx. ESR>140. WBC 13.2. CRP 7.18 on admission. -Vancomycin IV-pharmacy consulted -Cefepime 2g q12H -Wound culture pending -Blood cultures NGTD x 3days -Consult podiatry-appreciate recs -Left first and second ray amputations 07/13/17 -PT/OT -Continue home gabapentin -[place], morphine PRN pain (2) PVD (peripheral vascular disease) ICD Codes: I73.9 - Peripheral vascular disease, unspecified Status: Chronic Plan: History of peripheral vascular disease with femoral endarterectomy earlier this year in February. Has had bulge at site of surgery since then. Ultrasound: pseudoaneurysm in the left inguinal region. -Consult vascular surgery for recs -Plan for surgical intervention tomorrow 07/16/17 -Continue home Brilinta -Monitor clinically (3) DM (diabetes mellitus) ICD Codes: E11.9 - Type 2 diabetes mellitus without complications Status: Chronic Plan: Hold home metformin and glipizide - BS range in the last 24h [195-404], Fasting BS this AM in 195 -Low dose sliding scale insulin -Levemir 15 units at bedtime added 07/14/17 -Increase to Levemir 25 units for 07/15/2017 - Add pre-prandial short-acting insulin Aspart 8U w/ meals - Insulin low-dose sliding scale to supplement - f/u accuchecks tomorrow to adjust (4) CHF (congestive heart failure) ICD Codes: I50.9 - Heart failure, unspecified Status: Chronic Plan: History of CHF with AICD placement and CABG in the past -Continue home meds: lasix, spironolactone, coreg -Monitor vitals -Consider cardiology consult if worsening clinically (5) Anemia ICD Codes: D64.9 - Anemia, unspecified Plan: Hb of 9.5 on admission, 8.4 today. No signs of bleeding. Hgb of 9.1 three months ago. No signs of active bleeding - due to cardiac history, will transfuse for Hb <8.0 -f/u Hemoccult -f/u H&H @ 2:00PM (6) Depression ICD Codes: F32.9 - Major depressive disorder, single episode, unspecified Status: Chronic Plan: Continue home Effexor Clonazepam PRN (7) FEN Status: Acute Plan: Fluids: PO, limit fluids due to CHF Electrolytes: Na 133, improving. Nutrition: heart healthy diet, NPO after midnight DVT ppx: SCDs, hold chemoppx for surgery See the residents documentation for details. I saw and evaluated the patient regarding the navas portions of this evaluation and agree with the residents findings and plans as written. Parts of this note were created using [employer] voice recognition software program. While efforts were made to correct any mistakes made by this software, some mistakes, errors, and omissions may remain in the final note that were not caught when the note was originally created. Plan of care was discussed and agreed upon with the patient as specifically documented in the above note. An opportunity to ask questions with explanation was provided. Patient voiced understanding on all information reviewed and discussed. (Ghassan Mai MD) Problem Qualifiers (1) Osteomyelitis: Qualified Codes: M86.9 - Osteomyelitis, unspecified (2) DM (diabetes mellitus): Qualified Codes: E11.59 - Type 2 diabetes mellitus with other circulatory complications (3) CHF (congestive heart failure): Qualified Codes: I50.9 - Heart failure, unspecified Vicky Mejia MD R2 Jul 15, 2017 10:35 Ghassan Mai MD Jul 17, 2017 16:01
--- NOTE | 2017-07-15 11:22 | PD.POD ---
Subjective Podiatric Problems POD #2 Left foot partial first and second ray amps with VAC placement. Pt states that pain has been minimal. He denies any n/v/f/h/c/sob. He is scheduled to have sx with on Sunday for an aneurysm in the groin. Pain score: 2 Past Med/Surg/Social History Past Medical History Endocrine: REPORTS HX OF: Diabetes mellitus Respiratory: REPORTS HX OF: Other respiratory history Cardiovascular: REPORTS HX OF: Atrial fibrillation, Heart failure, Hypertension , Peripheral vascular dz Genitourinary: REPORTS HX OF: Kidney disease Cancer/Hematology: REPORTS HX OF: Anemia Neurologic: REPORTS HX OF: Peripheral neuropathy Psychiatric: REPORTS HX OF: Depression Genetic/metabolic: DENIES HX OF: Cystic fibrosis Past Surgical History Cardiovascular: REPORTS HX OF: Angioplasty, CABG surgery, Carotid endarterectomy, Coronary stent, Pacemaker Gastrointestinal: DENIES HX OF: Colectomy, total Social History Smoking Status: Former Smoker Objective Vital Signs Vital Signs Date Time Temp Pulse Resp B/P (MAP) Pulse Ox O2 Delivery O2 Flow Rate FiO2 07/15/17 08:04 97.4 69 16 122/61 (81) 97 07/15/17 08:00 67 07/15/17 04:08 65 07/15/17 04:00 97.5 67 17 106/55 (72) 95 07/15/17 04:00 Room Air 07/15/17 00:24 63 07/15/17 00:00 Room Air 07/15/17 00:00 98.3 71 17 105/56 (72) 97 07/14/17 20:08 66 07/14/17 20:00 Room Air 07/14/17 20:00 98.3 70 17 100/56 (71) 97 07/14/17 18:30 61 07/14/17 16:04 97.9 66 18 104/58 (73) 98 07/14/17 12:40 20 07/14/17 12:31 97.8 66 18 92/51 (65) 97 07/14/17 12:00 65 Coded Allergies: cyclobenzaprine (Verified Allergy, Severe, Flushing, 07/11/17) REDNESS lisinopril (Verified Allergy, Unknown, Swelling, 07/11/17) ANGIOEDEMA Exam-Podiatry Remarks Left foot partial first and second ray amputations. Sutures are intact, distal lateral ulceration of 1.5cm x 1.5cm x 1.0 cm, mostly granular wound bed, mild sanginous drainage, no malodor, slight vito incisional erythema. Assessment & Plan A/P 1) s/p left partial 1st and 2nd ray amps, 07/13/16 -M/W/F wound VAC changes, nursing orders placed, VAC paperwork on chart -clean margin bone biopsies pending -cont iv abx currently -heel WBing only to LLE -will need home VAC and HHC at time of d/c, possible home iv abx pending results of biopsies -f/u with 5 days after d/c Buffy Otero DPM Jul 15, 2017 11:22
[2017-07-15] MEDS: INSULIN ASPART 1,000 UNITS/10 ML VIAL SQ SCH ×2 (12:38→17:00)
[2017-07-15 15:54] LABS: HEMATOCRIT 24.7 % (39.0-51.0); HEMOGLOBIN 8.5 GM/DL (13.0-17.0)
[2017-07-15] MEDS: VANCOMYCIN INJ 1,750 MG in SODIUM CHLORID 0.9% 500 ML INJ 500 ML IV SCH (18:59)
--- NOTE | 2017-07-15 20:12 | PD.CAR.PN ---
CVT Progress Note Subjective/Hospital Course: referral received Full consult ROMAIN Gutierrez 07/12/16 Patient with severe peripheral vascular disease who underwent in February last year common femoral and external iliac artery endarterectomy with patch angioplasty and SFA and distal balloon angioplasty. This was followed by left hallux amputation by podiatry. Patient did well as far as the vascular supply goes and he has dopplerable proximal and distal pulses Foot is warm and capillary refill is intact No dependent rubor or elevation pallor is noted Nonetheless patient is a nonhealing side of the left hallux amputation with osteomyelitis At this point given the circumstances I definitely agree with Dr. Otero that patient should have a more proximal foot /transmetatarsal amputation, rather than a BKA. It may come to the point for patient will need a BKA but in face of good blood supply and certainly would try to do something less first. 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 Pseudoaneurysm is fairly large and therefore not amiable to endovascular thrombosis. Would go ahead with podiatric surgery at this time and I will follow with the pseudoaneurysm repair Sunday or Sunday06/13/18 Patient underwent successful forefoot amputation yesterday. Apparently well perfused distally as we expected. Will give patient a few days to recover and proceed with L femoral pseudoaneurysm repair Sunday. This is likely a detachment of the bovine patch and needs to be addressed by open surgical repair. 07/15/17 Patient stable. Great work by Dr Otero. excellent distal flow since reconstruction last year. foot remains well perfused. gave patient few days to recover. All cultures neg, which helps, considering a new bovine patch L groin is likely For left femoral artery aneurysm repair tomorrow. Objective: Vital Signs Date Time Temp Pulse Resp B/P (MAP) Pulse Ox O2 Delivery O2 Flow Rate FiO2 07/15/17 16:04 98.0 62 16 108/56 (73) 99 07/15/17 14:55 Room Air 07/15/17 13:13 Room Air 07/15/17 12:04 97.8 61 16 102/56 (71) 99 07/15/17 09:45 Room Air 07/15/17 08:04 97.4 69 16 122/61 (81) 97 07/15/17 08:00 67 07/15/17 04:08 65 07/15/17 04:00 97.5 67 17 106/55 (72) 95 07/15/17 04:00 Room Air 07/15/17 00:24 63 07/15/17 00:00 Room Air 07/15/17 00:00 98.3 71 17 105/56 (72) 97 Labs: Laboratory Tests Test 07/15/17 15:08 Hemoglobin 8.5 GM/DL (13.0-17.0) Hematocrit 24.7 % (39.0-51.0) Result Diagram: 07/15/17 1508 07/15/17 0745 Trisha Fleming MD Jul 15, 2017 20:12
[2017-07-15] MEDS: clonazePAM 0.5 MG TAB PO PRN (21:23)
[2017-07-15] MEDS: EZETIMIBE 10 MG TAB PO SCH (21:23)
[2017-07-15] MEDS: PRAVASTATIN SOD 80 MG TAB PO SCH (21:23)
[2017-07-15] MEDS: INSULIN DETEMIR 100 UNITS/ML VIAL SQ SCH (21:24)
[2017-07-15] MEDS: VENLAFAXINE HCL XR 75 MG CAP PO SCH (21:24)
[2017-07-15] MEDS ORDERED: SODIUM CHLORID 0.9% 500 ML IV PRN (21:30)
[2017-07-15] MEDS ORDERED: CHLORHEXIDINE GLUCONATE 2 % 1 PACK (2 CLOTHS) TOPICAL PRN (21:30)
[2017-07-15] MEDS ORDERED: INSULIN HUMAN REGULAR 1,000 UNITS/10 ML VIAL SQ PRN (21:30)
[2017-07-15] MEDS ORDERED: METOPROLOL TARTRATE 25 MG TAB PO PRN (21:30)
[2017-07-15] MEDS ORDERED: LACTATED RINGER'S 1000 ML IV PRN (21:30)
[2017-07-15] MEDS ORDERED: POVIDONE IODINE 5% (ANTISEPSIS KIT) 4 APPLICATIONS EACH NARE PRN (21:30)
[2017-07-16] VITALS (8 sets, daily range): BP systolic 97–132; BP diastolic 51–68; PULSE 59–70; RESP 16–20; TEMP 95.6–98.9; O2SAT 95–99
[2017-07-16] MEDS: CEFEPIME INJ 2,000 MG in SODIUM CHLORIDE 0.9% INJ 100 ML IV SCH ×2 (03:01→15:00)
[2017-07-16] MEDS: ACETAMINOPHEN/HYDROcodone 325 MG/7.5 MG TAB PO PRN ×3 (03:01→21:06)
[2017-07-16] MEDS: INSULIN ASPART SUPPLEMENTAL SCALE SQ SCH ×4 (08:00→21:08)
[2017-07-16] MEDS: INSULIN ASPART 1,000 UNITS/10 ML VIAL SQ SCH ×3 (08:00→17:00)
[2017-07-16] MEDS: LOSARTAN 25 MG TAB PO SCH (09:33)
[2017-07-16] MEDS: CARVEDILOL 6.25 MG TAB PO SCH ×2 (09:33→21:08)
[2017-07-16] MEDS: TICAGRELOR 90 MG TAB PO SCH ×2 (09:33→22:10)
[2017-07-16] MEDS: ASPIRIN 81 MG CHEW TAB PO SCH (09:34)
[2017-07-16] MEDS: DOCUSATE SODIUM 50 MG/SENNA 8.6 MG TAB PO SCH ×2 (09:34→21:07)
[2017-07-16] MEDS: SPIRONOLACTONE 25 MG TAB PO SCH ×2 (09:34→18:40)
[2017-07-16] MEDS: FUROSEMIDE 40 MG TAB PO SCH (09:34)
[2017-07-16] MEDS: FERROUS SULFATE 325 MG (65 MG ELEMENTAL IRON) TAB PO SCH (09:34)
[2017-07-16] MEDS: GABAPENTIN 100 MG CAP PO SCH ×4 (09:34→21:07)
[2017-07-16] MEDS: SODIUM CHLORIDE 0.9% FLUSH 10 ML FLUSH IV FLUSH SCH ×2 (09:35→21:09)
[2017-07-16] MEDS ORDERED: LIDOCAINE HCL 1% PF 5 ML SYRINGE OTHER ONE (12:00)
[2017-07-16] MEDS ORDERED: PHENYLEPHRINE HCL 10 MG/ML VIAL IV ONE (12:00)
[2017-07-16] MEDS ORDERED: PHENYLEPH/NS 1000 MCG/10 ML SYR IV ONE (12:00)
[2017-07-16] MEDS ORDERED: ROCURONIUM INJ 50 MG/5 ML SYRINGE IV PUSH ONE (12:00)
[2017-07-16] MEDS ORDERED: PROPOFOL 200 MG/20 ML AMP IV ONE (12:00)
[2017-07-16] MEDS ORDERED: HEPARIN SODIUM - SQ 10,000 UNITS/ML VIAL ONE (12:44)
[2017-07-16] MEDS ORDERED: PROTAMINE SULFATE 50 MG/5 ML VIAL ONE (12:44)
[2017-07-16] MEDS ORDERED: HEPARIN SODIUM - IV 10,000 UNITS/10 ML VIAL ONE (12:45)
[2017-07-16] MEDS ORDERED: DO NOT ADM ANY ANTICOAGULANT DRUGS PRN (16:10)
--- NOTE | 2017-07-16 16:32 | HHI.FPPN ---
Subjective Remarks Pt seen and examined this morning. Patient has been afebrile, vital signs have been stable. Family present at bedside. Pt anticipates having surgery this morning. he has no additional acute concerns. (Alina Helm MD R3) Objective Vitals Vital Signs Date Time Temp Pulse Resp B/P (MAP) Pulse Ox O2 Delivery O2 Flow Rate FiO2 07/16/17 10:00 96 07/16/17 08:00 98.1 70 20 122/63 (82) 96 07/16/17 04:00 98.9 64 16 100/56 (71) 95 07/16/17 04:00 Room Air 07/16/17 03:46 62 07/16/17 00:00 Room Air 07/16/17 00:00 97.8 65 16 97/51 (66) 96 07/15/17 23:35 60 07/15/17 20:12 98.2 66 20 105/56 (72) 97 07/15/17 20:00 Room Air 07/15/17 20:00 67 07/15/17 17:00 Room Air I/O 07/15/17 07/15/17 07/15/17 07/16/17 07/16/17 07/16/17 07:00 15:00 23:00 07:00 15:00 23:00 Intake Total 300 ml 997.5 ml 100 ml 430 ml Output Total 600 ml 1300 ml Balance -300 ml -302.5 ml 100 ml 430 ml Intake Oral 300 ml 480 ml IV Total 517.5 ml 100 ml Packed Cells 400 ml Blood Product IV Normal Saline Flush 30 ml Output Urine Total 600 ml 1300 ml # Bowel Movements 0 2 (Alina Helm MD R3) Result Diagram: 07/15/17 1508 07/15/17 0745 Objective Remarks GENERAL: This is a well-nourished, pleasant, well-developed patient, in no apparent distress. SKIN: Cool and dry. CARDIOVASCULAR: Regular rate and rhythm without murmurs, gallops, or rubs. RESPIRATORY: Clear to auscultation. Breath sounds equal bilaterally. No wheezes , rales, or rhonchi. GASTROINTESTINAL: Abdomen soft, nondistended. MUSCULOSKELETAL: Right lower extremity without lesions or wounds. Left foot in cast to above ankle. Pt can move foot on command, without pain. NEUROLOGICAL: Awake and alert. Normal speech. Procedures Left foot first and second ray partial amputation 07/13/17 (Alina Helm MD R3) A/P Assessment and Plan A 62-year-old male with history of diabetes, peripheral vascular disease, chronic wound presents with osteomyelitis of left foot, s/p left fist and second ray amputations on 07/13/17. Pending left inguinal pseudoaneurysm repair on 07/16/17. Discharge Planning Pending surgeries and postop recovery (Alina Helm MD R3) Problem List: (1) Osteomyelitis ICD Codes: M86.9 - Osteomyelitis, unspecified Status: Acute Plan: History of hallux amputation February due to osteomyelitis now with chronic wound. Foot xray: Osteomyelitis involving the distal second metatarsal, distal first metatarsal, base of proximal phalanx second toe. Extensive vascular calcification noted. Foot MRI: osteomyelitis involving first metatarsal stump, second and third distal metatarsal bones and second proximal phalanx. ESR>140. WBC 13.2. CRP 7.18 on admission. -Vancomycin IV-pharmacy consulted -Cefepime 2g q12H -Wound culture pending -Blood cultures NGTD x 3days -Consult podiatry-appreciate recs -Left first and second ray amputations 07/13/17 -PT/OT -Continue home gabapentin -[place], morphine PRN pain (2) PVD (peripheral vascular disease) ICD Codes: I73.9 - Peripheral vascular disease, unspecified Status: Chronic Plan: History of peripheral vascular disease with femoral endarterectomy earlier this year in February. Has had bulge at site of surgery since then. Ultrasound: pseudoaneurysm in the left inguinal region. -Consult vascular surgery for recs, appreciate recommendations and interventions -Patient underwent repair of left femoral artery pseudoaneurysm on 07/17/17 -Continue home Brilinta -Monitor clinically (3) DM (diabetes mellitus) ICD Codes: E11.9 - Type 2 diabetes mellitus without complications Status: Chronic Plan: Hold home metformin and glipizide -Low dose sliding scale insulin -Increase to Levemir 25 units for 07/15/2017 -NovoLog 8 units TIDAC (4) CHF (congestive heart failure) ICD Codes: I50.9 - Heart failure, unspecified Status: Chronic Plan: History of CHF with AICD placement and CABG in the past -Continue home meds: lasix, spironolactone, coreg -Monitor vitals -Consider cardiology consult if worsening clinically (5) Anemia ICD Codes: D64.9 - Anemia, unspecified Plan: Hb of 9.5 on admission, 8.5 today. No signs of bleeding. Hgb of 9.1 three months ago. No signs of active bleeding -due to cardiac history, will transfuse for Hb <8.0 -f/u Hemoccult, in process (6) Depression ICD Codes: F32.9 - Major depressive disorder, single episode, unspecified Status: Chronic Plan: Continue home Effexor Clonazepam PRN (7) FEN Status: Acute Plan: Fluids: PO, limit fluids due to CHF Electrolytes: Na 133, improving. Nutrition: heart healthy diet DVT ppx: SCDs, hold chemoppx for surgery (Alina Helm MD R3) Problem List: (1) Osteomyelitis ICD Codes: M86.9 - Osteomyelitis, unspecified Status: Acute Plan: History of hallux amputation February due to osteomyelitis now with chronic wound. Foot xray: Osteomyelitis involving the distal second metatarsal, distal first metatarsal, base of proximal phalanx second toe. Extensive vascular calcification noted. Foot MRI: osteomyelitis involving first metatarsal stump, second and third distal metatarsal bones and second proximal phalanx. ESR>140. WBC 13.2. CRP 7.18 on admission. -Vancomycin IV-pharmacy consulted -Cefepime 2g q12H -Wound culture pending -Blood cultures NGTD x 3days -Consult podiatry-appreciate recs -Left first and second ray amputations 07/13/17 -PT/OT -Continue home gabapentin -[place], morphine PRN pain (2) PVD (peripheral vascular disease) ICD Codes: I73.9 - Peripheral vascular disease, unspecified Status: Chronic Plan: History of peripheral vascular disease with femoral endarterectomy earlier this year in February. Has had bulge at site of surgery since then. Ultrasound: pseudoaneurysm in the left inguinal region. -Consult vascular surgery for recs, appreciate recommendations and interventions -Patient underwent repair of left femoral artery pseudoaneurysm on 07/17/17 -Continue home Brilinta -Monitor clinically (3) DM (diabetes mellitus) ICD Codes: E11.9 - Type 2 diabetes mellitus without complications Status: Chronic Plan: Hold home metformin and glipizide -Low dose sliding scale insulin -Increase to Levemir 25 units for 07/15/2017 -NovoLog 8 units TIDAC (4) CHF (congestive heart failure) ICD Codes: I50.9 - Heart failure, unspecified Status: Chronic Plan: History of CHF with AICD placement and CABG in the past -Continue home meds: lasix, spironolactone, coreg -Monitor vitals -Consider cardiology consult if worsening clinically (5) Anemia ICD Codes: D64.9 - Anemia, unspecified Plan: Hb of 9.5 on admission, 8.5 today. No signs of bleeding. Hgb of 9.1 three months ago. No signs of active bleeding -due to cardiac history, will transfuse for Hb <8.0 -f/u Hemoccult, in process (6) Depression ICD Codes: F32.9 - Major depressive disorder, single episode, unspecified Status: Chronic Plan: Continue home Effexor Clonazepam PRN (7) FEN Status: Acute Plan: Fluids: PO, limit fluids due to CHF Electrolytes: Na 133, improving. Nutrition: heart healthy diet DVT ppx: SCDs, hold chemoppx for surgery See the residents documentation for details. I saw and evaluated the patient regarding the navas portions of this evaluation and agree with the residents findings and plans as written. Parts of this note were created using Vis[employer] voice recognition software program. While efforts were made to correct any mistakes made by this software, some mistakes, errors, and omissions may remain in the final note that were not caught when the note was originally created. Plan of care was discussed and agreed upon with the patient as specifically documented in the above note. An opportunity to ask questions with explanation was provided. Patient voiced understanding on all information reviewed and discussed. (Ghassan Mai MD) Problem Qualifiers (1) Osteomyelitis: Qualified Codes: M86.9 - Osteomyelitis, unspecified (2) DM (diabetes mellitus): Qualified Codes: E11.59 - Type 2 diabetes mellitus with other circulatory complications (3) CHF (congestive heart failure): Qualified Codes: I50.9 - Heart failure, unspecified Alina Helm MD R3 Jul 16, 2017 16:32 Ghassan Mai MD Jul 17, 2017 16:33
[2017-07-16] MEDS: VANCOMYCIN INJ 1,750 MG in SODIUM CHLORID 0.9% 500 ML INJ 500 ML IV SCH ×2 (17:00→22:11)
[2017-07-16] MEDS ORDERED: *MEPERIDINE 25 MG INJ VIAL PERIprocedural Use ONLY ONE (17:16)
[2017-07-16] MEDS: MORPHINE SULFATE 2 MG/ML INJ IV PUSH PRN (18:44)
[2017-07-16] MEDS: VENLAFAXINE HCL XR 75 MG CAP PO SCH (21:07)
[2017-07-16] MEDS: EZETIMIBE 10 MG TAB PO SCH (21:07)
[2017-07-16] MEDS: PRAVASTATIN SOD 80 MG TAB PO SCH (21:07)
[2017-07-16] MEDS: INSULIN DETEMIR 100 UNITS/ML VIAL SQ SCH (21:08)
[2017-07-17] VITALS (8 sets, daily range): BP systolic 90–126; BP diastolic 50–68; PULSE 63–74; RESP 17–20; TEMP 97.1–98.1; O2SAT 90–99
[2017-07-17] MEDS: ACETAMINOPHEN/HYDROcodone 325 MG/7.5 MG TAB PO PRN ×5 (02:52→19:40)
[2017-07-17] MEDS: CEFEPIME INJ 2,000 MG in SODIUM CHLORIDE 0.9% INJ 100 ML IV SCH ×2 (02:52→15:10)
[2017-07-17 06:49] LABS: BASOPHIL # 0.1 TH/MM3 (0-0.2); BASOPHIL % 0.5 % (0.0-2.0); EOSINOPHIL # 0.3 TH/MM3 (0-0.4); EOSINOPHIL % 2.2 % (0.0-4.0); HEMATOCRIT 24.6 % (39.0-51.0); HEMOGLOBIN 8.5 GM/DL (13.0-17.0); LYMPHOCYTE # 1.2 TH/MM3 (1.0-4.8); MEAN CELL VOLUME 80.4 FL (80.0-100.0); MEAN CORPUSCULAR HEMOGLOBIN 27.9 PG (27.0-34.0); MEAN CORPUSCULAR HGB CONC 34.7 % (32.0-36.0); MEAN PLATELET VOLUME 7.2 FL (7.0-11.0); MONO % 7.4 % (0.0-8.0); NEUT % 80.9 % (16.0-70.0); PLATELET COUNT 394 TH/MM3 (150-450); RED BLOOD COUNT 3.06 MIL/MM3 (4.50-5.90); RED CELL DISTRIBUTION WIDTH 16.2 % (11.6-17.2); WHITE BLOOD COUNT 13.6 TH/MM3 (4.0-11.0)
[2017-07-17 07:11] LABS: CALCIUM 8.7 MG/DL (8.5-10.1); CREATININE 0.82 MG/DL (0.60-1.30)
[2017-07-17] MEDS: INSULIN ASPART 1,000 UNITS/10 ML VIAL SQ SCH ×3 (08:00→17:00)
[2017-07-17] MEDS: INSULIN ASPART SUPPLEMENTAL SCALE SQ SCH ×4 (08:00→21:17)
[2017-07-17] MEDS: FUROSEMIDE 40 MG TAB PO SCH (10:56)
[2017-07-17] MEDS: LOSARTAN 25 MG TAB PO SCH (10:56)
[2017-07-17] MEDS: GABAPENTIN 100 MG CAP PO SCH ×4 (10:57→21:18)
[2017-07-17] MEDS: SPIRONOLACTONE 25 MG TAB PO SCH ×2 (10:57→17:01)
[2017-07-17] MEDS: TICAGRELOR 90 MG TAB PO SCH ×2 (10:57→21:18)
[2017-07-17] MEDS: CARVEDILOL 6.25 MG TAB PO SCH ×2 (10:57→21:18)
[2017-07-17] MEDS: DOCUSATE SODIUM 50 MG/SENNA 8.6 MG TAB PO SCH ×2 (10:57→21:18)
[2017-07-17] MEDS: FERROUS SULFATE 325 MG (65 MG ELEMENTAL IRON) TAB PO SCH (10:58)
[2017-07-17] MEDS: ASPIRIN 81 MG CHEW TAB PO SCH (10:58)
[2017-07-17] MEDS: SODIUM CHLORIDE 0.9% FLUSH 10 ML FLUSH IV FLUSH SCH ×2 (10:58→21:20)
--- NOTE | 2017-07-17 15:25 | PD.WCN.NOT ---
Wound Consult Description: Received consult from Doctor Branden for wound VAC dressing change - for L foot Communicated with: MITESH Malone Recommendation: Please keep wound VAC in place and change on if patient is to be discharged on or if not discharged on change on Sunday. Neg Pressure Wound Therapy Wound Location Wound Location: L foot Wound Description Length: ~3cm Width: ~2cm Depth: ~1cm Wound bed appearance: ~50% red non granulation tissue, ~20% dried blood, ~10% bone and ~20% tendon Periwound appearance: Other (sutures at 6o'clock) Settings Suction: 125 mmHg, Continuous Intensity: Low Other Information: Bridged, Windowpaned Foam type: Black Number of pieces: 1 Additonal Information Patient seen on for wound VAC dressing change.Attempted to apply VAC dressing yesterday,but patient was in surgery and recovery.Dressing changed with the assistance of Jaziel ANN and video game script writer. Removed dressing in place to L foot to reveal wound. Wound description and measurements noted above. Cleansed wound with normal saline and pat dry. Covered sutures with Xeroform gauze dressing to protect from VAC. Oil emulsion gauze applied over exposed tendon and bone in wound bed. Skin prep was applied to periwound. Wound was window paned with drape. Granufoam was cut in single strip and placed in wound. Bridged granufoam over VAC drape to dorsal aspect of L foot. Sensi trac pad with attached mushroom cap of granufoam and was applied over bridged granufoam. All exposed granufoam was covered with VAC drape. Wound VAC was suctioning at 125mm/hg, continuous low suction. Next VAC change is on ,if patient is being discharged on if not discharged on will change VAC dressing on Sunday07/20/2016. Alma Rosa Turk [facility] Jul 17, 2017 15:25
--- NOTE | 2017-07-17 15:32 | HHI.FPPN ---
Subjective Remarks Patient seen and examined at bedside. at bedside. No acute events overnight. Patient is POD #1 from left groin pseudoaneurysm repair yesterday 07/16. Patient denies chest pain. Patient reports mild aching at site of procedure. Patient states he's eating well. He is passing gas. No bowel movement today. Patient is awaiting follow-up vascular. (Zacarias Oneill MD, R1) Objective Vitals Vital Signs Date Time Temp Pulse Resp B/P (MAP) Pulse Ox O2 Delivery O2 Flow Rate FiO2 07/17/17 12:02 Room Air 21 07/17/17 12:00 97.4 66 17 111/53 (72) 99 07/17/17 11:59 18 07/17/17 09:05 97 Nasal Cannula 3.00 07/17/17 08:00 97.9 68 18 98/52 (67) 97 07/17/17 06:20 98 Nasal Cannula 3.00 07/17/17 04:00 97.3 65 20 90/51 (64) 99 07/17/17 00:00 97.1 63 18 99/50 (66) 99 07/16/17 20:00 95.8 60 18 132/68 (89) 99 07/16/17 17:50 95.6 60 18 132/66 (88) 98 07/16/17 17:30 97.6 60 20 120/60 (80) 99 Nasal Cannula 2 07/16/17 17:15 60 20 140/72 (94) 98 Nasal Cannula 2 07/16/17 17:00 59 20 140/70 (93) 97 Nasal Cannula 2 07/16/17 16:45 60 20 138/66 (90) 97 Nasal Cannula 2 07/16/17 16:30 62 20 160/75 (103) 94 Nasal Cannula 2 07/16/17 16:11 97.6 62 20 148/65 (92) 93 Nasal Cannula 2 I/O 07/16/17 07/16/17 07/16/17 07/17/17 07/17/17 07/17/17 07:00 15:00 23:00 07:00 15:00 23:00 Intake Total 100 ml 430 ml 2200 ml 1080 ml Output Total 1750 ml 1100 ml Balance 100 ml 430 ml 450 ml -20 ml Intake Oral 480 ml IV Total 100 ml 100 ml 600 ml Packed Cells 400 ml 400 ml Blood Product IV Normal Saline Flush 30 ml Other 1700 ml Output Urine Total 1400 ml 1050 ml Drainage Total 50 ml Estimated Blood Loss 350 ml (Zacarias Oneill MD, R1) Result Diagram: 07/17/17 0608 07/17/17 0608 Objective Remarks GENERAL: This is a well-nourished, pleasant, well-developed patient, in no apparent distress. SKIN: Cool and dry. CARDIOVASCULAR: Normal S1-S2. Regular rate and rhythm without murmurs, gallops, or rubs. RESPIRATORY: Clear to auscultation. Breath sounds equal bilaterally. No wheezes , rales, or rhonchi. GASTROINTESTINAL: Abdomen soft, nondistended. Patient with 2 drains at site of left pseudoaneurysm repair. MUSCULOSKELETAL: Right lower extremity without lesions or wounds. Left foot in cast to above ankle. Wound VAC in place. Pt can move foot on command, without pain. NEUROLOGICAL: Awake and alert. Normal speech. Procedures Left foot first and second ray partial amputation 07/13/17 (Zacarias Oneill MD, R1) A/P Assessment and Plan A 62-year-old male with history of diabetes, peripheral vascular disease, chronic wound presents with osteomyelitis of left foot, s/p left fist and second ray amputations on 07/13/17. Pending left inguinal pseudoaneurysm repair on 07/16/17. Discharge Planning Sedated discharge tomorrow following clearance that vascular team. (Zacarias Oneill MD, R1) Problem List: (1) Osteomyelitis ICD Codes: M86.9 - Osteomyelitis, unspecified Status: Acute Plan: History of hallux amputation February due to osteomyelitis now with chronic wound. Foot xray: Osteomyelitis involving the distal second metatarsal, distal first metatarsal, base of proximal phalanx second toe. Extensive vascular calcification noted. Foot MRI: osteomyelitis involving first metatarsal stump, second and third distal metatarsal bones and second proximal phalanx. ESR>140. WBC 13.2. CRP 7.18 on admission. -Vancomycin IV-pharmacy consulted -Cefepime 2g q12H -Wound culture staph. epidermidis Viridans strep -Blood cultures NGTD x 5days -Consult podiatry-appreciate recs -Left first and second ray amputations 07/13/17 -PT/OT -Continue home gabapentin -[place], morphine PRN pain (2) PVD (peripheral vascular disease) ICD Codes: I73.9 - Peripheral vascular disease, unspecified Status: Chronic Plan: History of peripheral vascular disease with femoral endarterectomy earlier this year in February. Has had bulge at site of surgery since then. Ultrasound: pseudoaneurysm in the left inguinal region. -Consult vascular surgery for recs, appreciate recommendations and interventions -Patient underwent repair of left femoral artery pseudoaneurysm on 07/17/17 -Continue home Brilinta -Monitor clinically -anticipate discharge tomorrow pending clearance from vascular team. (3) DM (diabetes mellitus) ICD Codes: E11.9 - Type 2 diabetes mellitus without complications Status: Chronic Plan: Hold home metformin and glipizide -Low dose sliding scale insulin -Increase to Levemir 25 units for 07/15/2017 -NovoLog 8 units TIDAC (4) CHF (congestive heart failure) ICD Codes: I50.9 - Heart failure, unspecified Status: Chronic Plan: History of CHF with AICD placement and CABG in the past -Continue home meds: lasix, spironolactone, coreg -Monitor vitals -Consider cardiology consult if worsening clinically (5) Anemia ICD Codes: D64.9 - Anemia, unspecified Status: Resolved Plan: Hb of 9.5 on admission, 8.5 today. No signs of bleeding. Hgb of 9.1 three months ago. No signs of active bleeding -due to cardiac history, will transfuse for Hb <8.0 -f/u Hemoccult, in process (6) Depression ICD Codes: F32.9 - Major depressive disorder, single episode, unspecified Status: Chronic Plan: Continue home Effexor Clonazepam PRN (7) FEN Status: Acute Plan: Fluids: PO, limit fluids due to CHF Electrolytes: Na 133, improving. Nutrition: heart healthy diet DVT ppx: SCDs, hold chemoppx for surgery (Zacarias Oneill MD, R1) Problem List: (1) Osteomyelitis ICD Codes: M86.9 - Osteomyelitis, unspecified Status: Acute Plan: History of hallux amputation February due to osteomyelitis now with chronic wound. Foot xray: Osteomyelitis involving the distal second metatarsal, distal first metatarsal, base of proximal phalanx second toe. Extensive vascular calcification noted. Foot MRI: osteomyelitis involving first metatarsal stump, second and third distal metatarsal bones and second proximal phalanx. ESR>140. WBC 13.2. CRP 7.18 on admission. -Vancomycin IV-pharmacy consulted -Cefepime 2g q12H -Wound culture staph. epidermidis Viridans strep -Blood cultures NGTD x 5days -Consult podiatry-appreciate recs -Left first and second ray amputations 07/13/17 -PT/OT -Continue home gabapentin -[place], morphine PRN pain (2) PVD (peripheral vascular disease) ICD Codes: I73.9 - Peripheral vascular disease, unspecified Status: Chronic Plan: History of peripheral vascular disease with femoral endarterectomy earlier this year in February. Has had bulge at site of surgery since then. Ultrasound: pseudoaneurysm in the left inguinal region. -Consult vascular surgery for recs, appreciate recommendations and interventions -Patient underwent repair of left femoral artery pseudoaneurysm on 07/17/17 -Continue home Brilinta -Monitor clinically -anticipate discharge tomorrow pending clearance from vascular team. (3) DM (diabetes mellitus) ICD Codes: E11.9 - Type 2 diabetes mellitus without complications Status: Chronic Plan: Hold home metformin and glipizide -Low dose sliding scale insulin -Increase to Levemir 25 units for 07/15/2017 -NovoLog 8 units TIDAC (4) CHF (congestive heart failure) ICD Codes: I50.9 - Heart failure, unspecified Status: Chronic Plan: History of CHF with AICD placement and CABG in the past -Continue home meds: lasix, spironolactone, coreg -Monitor vitals -Consider cardiology consult if worsening clinically (5) Anemia ICD Codes: D64.9 - Anemia, unspecified Status: Resolved Plan: Hb of 9.5 on admission, 8.5 today. No signs of bleeding. Hgb of 9.1 three months ago. No signs of active bleeding -due to cardiac history, will transfuse for Hb <8.0 -f/u Hemoccult, in process (6) Depression ICD Codes: F32.9 - Major depressive disorder, single episode, unspecified Status: Chronic Plan: Continue home Effexor Clonazepam PRN (7) FEN Status: Acute Plan: Fluids: PO, limit fluids due to CHF Electrolytes: Na 133, improving. Nutrition: heart healthy diet DVT ppx: SCDs, hold chemoppx for surgery See the residents documentation for details. I saw and evaluated the patient regarding the [place]as portions of this evaluation and agree with the residents findings and plans as written. Parts of this note were created using [employer] voice recognition software program. While efforts were made to correct any mistakes made by this software, some mistakes, errors, and omissions may remain in the final note that were not caught when the note was originally created. Plan of care was discussed and agreed upon with the patient as specifically documented in the above note. An opportunity to ask questions with explanation was provided. Patient voiced understanding on all information reviewed and discussed. (Ghassan Mai MD) Problem Qualifiers (1) Osteomyelitis: Qualified Codes: M86.9 - Osteomyelitis, unspecified (2) DM (diabetes mellitus): Qualified Codes: E11.59 - Type 2 diabetes mellitus with other circulatory complications (3) CHF (congestive heart failure): Qualified Codes: I50.9 - Heart failure, unspecified Zacarias Oneill MD, R1 Jul 17, 2017 15:32 Ghassan Mai MD Jul 19, 2017 12:48
[2017-07-17] MEDS: MORPHINE SULFATE 2 MG/ML INJ IV PUSH PRN ×2 (17:01→21:16)
--- NOTE | 2017-07-17 18:08 | MP ---
cc: TRISHA BURGER MD DATE OF SURGERY: 07/16/2017 PREOPERATIVE DIAGNOSIS: Ischemia of the left foot. Pseudoaneurysm of the left common femoral artery. POSTOPERATIVE DIAGNOSIS: Ischemia of the left foot. Pseudoaneurysm of the left common femoral artery. OPERATION: Left femoral artery pseudoaneurysm evacuation, resection and repair of femoral artery with a patch. Extraperitoneal (retroperitoneal) external iliac artery exploration and control. Retroperitoneal lymph node excisional biopsy. SURGEON: Dr. Burger ANESTHESIA: General. ESTIMATED BLOOD LOSS: 200 cc INDICATIONS FOR PROCEDURE: This 62 year-old gentleman, who is a vasculopath, had previous vascular construction, presented with a pseudoaneurysm with a large neck, which was deemed to be due to the patch tear. In addition, he has ischemia of the foot for which he just underwent podiatric ray amputation. DESCRIPTION OF PROCEDURE: The patient is prepped and draped in the usual fashion and left groin is observed. The patient has a huge pseudoaneurysm measuring about 7 cm in diameter. Incision is made over the site of the previous oblique groin incision scar, and then carried out up laterally in order to access the retroperitoneum. Therefore first the retroperitoneum is accessed. The way this is done the anterior rectus sheath was opened. The rectus muscles retracted laterally. The posterior rectus sheath is opened and then the preperitoneal space is entered. The peritoneum is now deflected medially and rolled up on itself hereby exposing the retroperitoneal space. The external iliac artery is readily identified, appears to be fairly soft actually and with good pulse in it. In addition the patient has several very large lymph nodes measuring about 3 cm in diameter. While these are probably reactive, one lymph node is taken and submitted for routine biopsy just in case. Once with the external iliac artery controlled, the vessel loop was placed around it. The patient is given 5000 units of heparin. Now the incision is extended deeper in the groin until the pseudoaneurysm sac is entered. This was followed by a brisk bleeding. At that point the Satinsky clamp is placed on the external iliac artery and then controlled antegrade flow with some retrograde bleeding still being present from the femoral. Finger pressure is held to control this, and then I dissected around the finger and removed all the debris from the aneurysm sac and cleaned the devitalized tissue away. Once this was done, the area was explored. Bovine patch is torn at the upper portion laterally and this is where the hole was. It measures about 7 millimeters in length and about 5 millimeters in width, so this is a pretty big rent. This one was repaired by advancing the patch and then sewing it in with interrupted 5-0 Prolene stitches. This controls completely the bleeding. The external iliac artery is now released and pulses checked with Doppler. There is, of course, palpable pulse in the vessel. Everything else is explored and cleaned out with copious amounts of saline, and then incision closed. The retroperitoneal space incision is closed in layers, reapproximating the posterior rectus sheath and anterior rectus sheath with running 0 Vicryl and 2-0 Vicryl subcutaneous tissue. The inguinal incision is closed with 0 Vicryl as well in layers and then the skin is closed with 4-0 Monocryl. Two MAJO drains are placed, 7 flat in the groin and 7 flat in the retroperitoneum. The patient tolerated the procedure well. Trisha MUHAMMAD /2:20 PM /5:21 PM MINDA
[2017-07-17] MEDS: INSULIN DETEMIR 100 UNITS/ML VIAL SQ SCH (21:17)
[2017-07-17] MEDS: EZETIMIBE 10 MG TAB PO SCH (21:18)
[2017-07-17] MEDS: PRAVASTATIN SOD 80 MG TAB PO SCH (21:18)
[2017-07-17] MEDS: VENLAFAXINE HCL XR 75 MG CAP PO SCH (21:18)
[2017-07-17] MEDS: VANCOMYCIN INJ 1,750 MG in SODIUM CHLORID 0.9% 500 ML INJ 500 ML IV SCH (21:26)
[2017-07-18] VITALS: BP 92/50; PULSE 70; RESP 18; TEMP 99; O2SAT 95
[2017-07-18] MEDS: ACETAMINOPHEN/HYDROcodone 325 MG/7.5 MG TAB PO PRN ×4 (00:38→15:12)
[2017-07-18] MEDS: MORPHINE SULFATE 2 MG/ML INJ IV PUSH PRN (02:04)
[2017-07-18] MEDS: CEFEPIME INJ 2,000 MG in SODIUM CHLORIDE 0.9% INJ 100 ML IV SCH ×2 (03:25→15:05)
[2017-07-18 08:00] VITALS: BP 111/64; PULSE 81; RESP 17; TEMP 97.8; O2SAT 96
[2017-07-18] MEDS: INSULIN ASPART 1,000 UNITS/10 ML VIAL SQ SCH ×4 (08:00→17:00)
[2017-07-18] MEDS: INSULIN ASPART SUPPLEMENTAL SCALE SQ SCH ×3 (08:00→17:11)
[2017-07-18] MEDS: SODIUM CHLORIDE 0.9% FLUSH 10 ML FLUSH IV FLUSH SCH (09:00)
[2017-07-18] MEDS: FERROUS SULFATE 325 MG (65 MG ELEMENTAL IRON) TAB PO SCH (09:14)
[2017-07-18] MEDS: GABAPENTIN 100 MG CAP PO SCH ×3 (09:14→17:10)
[2017-07-18] MEDS: FUROSEMIDE 40 MG TAB PO SCH (09:14)
[2017-07-18] MEDS: DOCUSATE SODIUM 50 MG/SENNA 8.6 MG TAB PO SCH (09:14)
[2017-07-18] MEDS: LOSARTAN 25 MG TAB PO SCH (09:15)
[2017-07-18] MEDS: TICAGRELOR 90 MG TAB PO SCH (09:15)
[2017-07-18] MEDS: SPIRONOLACTONE 25 MG TAB PO SCH ×2 (09:15→17:10)
[2017-07-18] MEDS: ASPIRIN 81 MG CHEW TAB PO SCH (09:15)
[2017-07-18] MEDS: CARVEDILOL 6.25 MG TAB PO SCH (09:15)
--- NOTE | 2017-07-18 10:08 | PD.CAR.PN ---
CVT Progress Note Subjective/Hospital Course: referral received Full consult ROMAIN Gutierrez 07/12/16 Patient with severe peripheral vascular disease who underwent in February last year common femoral and external iliac artery endarterectomy with patch angioplasty and SFA and distal balloon angioplasty. This was followed by left hallux amputation by podiatry. Patient did well as far as the vascular supply goes and he has dopplerable proximal and distal pulses Foot is warm and capillary refill is intact No dependent rubor or elevation pallor is noted Nonetheless patient is a nonhealing side of the left hallux amputation with osteomyelitis At this point given the circumstances I definitely agree with Dr. Otero that patient should have a more proximal foot /transmetatarsal amputation, rather than a BKA. It may come to the point for patient will need a BKA but in face of good blood supply and certainly would try to do something less first. 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 Pseudoaneurysm is fairly large and therefore not amiable to endovascular thrombosis. Would go ahead with podiatric surgery at this time and I will follow with the pseudoaneurysm repair Sunday or Sunday06/13/18 Patient underwent successful forefoot amputation yesterday. Apparently well perfused distally as we expected. Will give patient a few days to recover and proceed with L femoral pseudoaneurysm repair Sunday. This is likely a detachment of the bovine patch and needs to be addressed by open surgical repair. 07/15/17 Patient stable. Great work by Dr Otero. excellent distal flow since reconstruction last year. foot remains well perfused. gave patient few days to recover. All cultures neg, which helps, considering a new bovine patch L groin is likely For left femoral artery aneurysm repair tomorrow. 07/1017 Incision clean and dry MAJO drainage minimal Good distal flow with a strong popliteal artery signal Foot was dressed as per podiatry with wound VAC Will DC MAJO drains From my point patient was discharged any time to follow up me in about 3 weeks Objective: Vital Signs Date Time Temp Pulse Resp B/P (MAP) Pulse Ox O2 Delivery O2 Flow Rate FiO2 07/18/17 08:00 97.8 81 17 111/64 (80) 96 07/18/17 00:00 99.0 70 18 92/50 (64) 95 07/17/17 20:37 98.1 74 20 126/68 (87) 90 07/17/17 17:08 18 07/17/17 17:03 19 07/17/17 16:00 98.1 69 17 99/52 (68) 98 07/17/17 12:02 Room Air 21 07/17/17 12:00 97.4 66 17 111/53 (72) 99 Result Diagram: 07/17/17 0608 07/17/17 0608 Trisha Fleming MD Jul 18, 2017 10:08
[2017-07-18 12:00] VITALS: BP 115/54; PULSE 69; RESP 18; TEMP 96.9; O2SAT 96
[2017-07-18] MEDS ORDERED: VANC1000P IV (13:02)
[2017-07-18] MEDS ORDERED: CEFE2INJ2 IV (13:02)
--- NOTE | 2017-07-18 13:07 | HHI.FF ---
Face to Face Verification Diagnosis: (1) Osteomyelitis (2) PVD (peripheral vascular disease) Physical Therapy Order: Evaluate and Treat, Improve ambulation, Strength and gait training Occupational Therapy Order: Evaluate and Treat, Improve ADL, Gross motor coordination Home Health Nursing Order: Medical education Signs/symptoms of disease process Diabetic education Medication education-adverse effect Wound care and dressing changes Nursing assessment with vital signs IV medication administration Home Health Aide Order: To Assist In: Bathing and personal care, sandwich wrapper and meal prep Cloth Mercerizer Back Tender Order: To Evaluate: Support services Order: To Provide: Community services I have seen patient Omar Ovalle on 07/18/17. My clinical findings support the need for the requested home health care services because: Ltd mobility - disease progression Deconditioned w/ increased weakness Med compliance is questionable High risk of falls Infection w/ risk of complications Injectable med education/admin I certify that my clinical findings support that this patient is homebound because: Unsteady gait/balance Unsafe to leave home unassisted Need for psychosocial assistance Vicky Mejia MD R2 Jul 18, 2017 13:07
--- NOTE | 2017-07-18 13:12 | HHI.FF ---
Infusion Therapy Location of Infusion Therapy: Home Health Care IV Infusion Order Patient Information Appointment Date: Jul 18, 2017 Patient Weight 97 kg Diagnosis: (1) Osteomyelitis Coded Allergies: cyclobenzaprine (Verified Allergy, Severe, Flushing, 07/11/17) REDNESS lisinopril (Verified Allergy, Unknown, Swelling, 07/11/17) ANGIOEDEMA Administer Medication Cefepime 2 grams IV q 12 hours Administer 2g IV q12h x 7 weeks Start Treatment: Jul 18, 2017 Stop Treatment: Sep 05, 2017 Administer Medication Vancomycin q 24 hours Administer 1.750 g IV [id number] Start Treatment: Jul 18, 2017 Stop Treatment: Sep 05, 2017 Additional Information Venous access: PICC Line Additional Instructions [x] Peripheral flush and dressing changes per protocol [x] Implanted port and central business line manager: * Implanted port: 10 ml Normal Saline followed by 5 ml Heparin 100 units/ml Heparin flush after each use and monthly to maintain. [] May leave port accessed during therapy. [] May leave peripheral site accessed for duration of therapy. [x] If patient has SOB or respiratory distress, check oxygen saturation. If less than 90% or clinical signs of respiratory distress, administer oxygen at 2 L/min. via nasal cannula and notify physician. [x] Anaphylaxis/Reaction orders: * Stop infusion. * Keep IV line open with saline flush. * Notify physician. * Monitor vital signs every 15 minutes until symptoms resolve. * Check Oxygen saturation; Oxygen at 2 L/min. via nasal cannula if less than 90% or clinical signs of respiratory distress. * Administer diphenhydramine (Benadryl) 25 mg IV STAT, (unless patient has received as pre-med). May repeat once, if necessary. * Solu-Cortef 250 mg IVP over 30-60 seconds, use 100 mg vials for each dissolution. * Epinephrine (1mg/1 ml) 0.3 mg subcutaneously or IVP now with any signs of respiratory distress. * Check with physician for new additional pre-med orders if patient is re- challenged or re-treated. [x] May remove PICC line when treatment complete, after confirming with Physician. [x] If the patient is admitted to the hospital, the ED, or transferred via [facility] , complete transfer form including medication reconciliation order sheet. Laboratory Tests Weekly Labs: BMP, Creatinine Additional Information BMP and Creatinine to be followed up by ID referral Vicky Mejia MD R2 Jul 18, 2017 13:12
--- NOTE | 2017-07-18 13:14 | HHI.FPPN ---
Subjective Remarks Patient seen and examined bedside. Patient states that he is doing well with the surgery and he would like to go home. Patient has been eating and drinking without difficulty. Patient has voided and has passed gas. Patient denies any chest pain/shortness of breath/dizziness. Objective Vitals Vital Signs Date Time Temp Pulse Resp B/P (MAP) Pulse Ox O2 Delivery O2 Flow Rate FiO2 07/18/17 12:00 96.9 69 18 115/54 (74) 96 07/18/17 08:00 97.8 81 17 111/64 (80) 96 07/18/17 00:00 99.0 70 18 92/50 (64) 95 07/17/17 20:37 98.1 74 20 126/68 (87) 90 07/17/17 17:08 18 07/17/17 17:03 19 07/17/17 16:00 98.1 69 17 99/52 (68) 98 I/O 07/17/17 07/17/17 07/17/17 07/18/17 07/18/17 07/18/17 07:00 15:00 23:00 07:00 15:00 23:00 Intake Total 1080 ml 1060 ml 720 ml Output Total 1100 ml 1600 ml 500 ml Balance -20 ml -540 ml 220 ml Intake Oral 480 ml 960 ml 120 ml IV Total 600 ml 100 ml 600 ml Output Urine Total 1050 ml 1600 ml 500 ml Drainage Total 50 ml # Bowel Movements 0 0 Result Diagram: 07/17/17 0608 07/17/17 0608 Objective Remarks GENERAL: This is a well-nourished, pleasant, well-developed patient, in no apparent distress. SKIN: Cool and dry. CARDIOVASCULAR: Normal S1-S2. Regular rate and rhythm without murmurs, gallops, or rubs. RESPIRATORY: Clear to auscultation. Breath sounds equal bilaterally. No wheezes , rales, or rhonchi. GASTROINTESTINAL: Abdomen soft, nondistended. Patient with 2 drains open at site of left pseudoaneurysm repair. MUSCULOSKELETAL: Right lower extremity without lesions or wounds. Left foot in cast to above ankle. Wound VAC in place. Pt can move foot on command, without pain. NEUROLOGICAL: Awake and alert. Normal speech. Procedures Left foot first and second ray partial amputation 07/13/17 A/P Assessment and Plan A 62-year-old male with history of diabetes, peripheral vascular disease, chronic wound presents with osteomyelitis of left foot, s/p left fist and second ray amputations on 07/13/17. pseudoaneurysm repair on 07/16/17. Discharge Planning Sedated discharge tomorrow following clearance that vascular team. Problem List: (1) Osteomyelitis ICD Codes: M86.9 - Osteomyelitis, unspecified Status: Acute Plan: History of hallux amputation February due to osteomyelitis now with chronic wound. Foot xray: Osteomyelitis involving the distal second metatarsal, distal first metatarsal, base of proximal phalanx second toe. Extensive vascular calcification noted. Foot MRI: osteomyelitis involving first metatarsal stump, second and third distal metatarsal bones and second proximal phalanx. ESR>140. WBC 13.2. CRP 7.18 on admission. -Vancomycin IV-pharmacy consulted -Cefepime 2g q12H -Wound culture staph. epidermidis Viridans strep -Blood cultures NGTD x 5days -Consult podiatry-appreciate recs -Left first and second ray amputations 07/13/17 -PT/OT -Continue home gabapentin -[place], morphine PRN pain - Plan to discharge with continued IV antibiotics for an week course (2) PVD (peripheral vascular disease) ICD Codes: I73.9 - Peripheral vascular disease, unspecified Status: Chronic Plan: History of peripheral vascular disease with femoral endarterectomy earlier this year in February, pseudoaneurysm -Consult vascular surgery for recs, appreciate recommendations and interventions -Patient underwent repair of left femoral artery pseudoaneurysm on 07/17/17 -Continue home Brilinta -Monitor clinically Vascular team is cleared with follow-up in 3 weeks (3) DM (diabetes mellitus) ICD Codes: E11.9 - Type 2 diabetes mellitus without complications Status: Chronic Plan: Discharge on home diabetic medication (4) CHF (congestive heart failure) ICD Codes: I50.9 - Heart failure, unspecified Status: Chronic Plan: History of CHF with AICD placement and CABG in the past -Continue home meds: lasix, spironolactone, coreg Patient has been stable cardiology as outpatient (5) Anemia ICD Codes: D64.9 - Anemia, unspecified Status: Resolved Plan: Hb of 9.5 on admission, 9.2 today. No signs of bleeding. Hgb of 9.1 three months ago. No signs of active bleeding (6) Depression ICD Codes: F32.9 - Major depressive disorder, single episode, unspecified Status: Chronic Plan: Continue home Effexor Clonazepam PRN (7) FEN Status: Acute Plan: Fluids: PO, limit fluids due to CHF Electrolytes: Na 133, improving. Nutrition: heart healthy diet DVT ppx: SCDs, hold chemoppx for surgery Problem Qualifiers (1) Osteomyelitis: Qualified Codes: M86.9 - Osteomyelitis, unspecified (2) DM (diabetes mellitus): Qualified Codes: E11.59 - Type 2 diabetes mellitus with other circulatory complications (3) CHF (congestive heart failure): Qualified Codes: I50.9 - Heart failure, unspecified Vicky Mejia MD R2 Jul 18, 2017 13:14
[2017-07-18 13:18] LABS: AUTOMATED NEUTROPHIL # 13.2 TH/MM3 (1.8-7.7); BASOPHIL # 0.2 TH/MM3 (0-0.2); BASOPHIL % 1.1 % (0.0-2.0); EOSINOPHIL # 0.5 TH/MM3 (0-0.4); EOSINOPHIL % 3.2 % (0.0-4.0); HEMATOCRIT 26.9 % (39.0-51.0); HEMOGLOBIN 9.2 GM/DL (13.0-17.0); LYMPHOCYTE # 1.5 TH/MM3 (1.0-4.8); MEAN CELL VOLUME 80.1 FL (80.0-100.0); MEAN CORPUSCULAR HEMOGLOBIN 27.5 PG (27.0-34.0); MEAN CORPUSCULAR HGB CONC 34.3 % (32.0-36.0); MEAN PLATELET VOLUME 7.4 FL (7.0-11.0); MONO % 5.8 % (0.0-8.0); MONOCYTE # 0.9 TH/MM3 (0-0.9); NEUT % 80.9 % (16.0-70.0); PLATELET COUNT 451 TH/MM3 (150-450); RED BLOOD COUNT 3.36 MIL/MM3 (4.50-5.90); RED CELL DISTRIBUTION WIDTH 16.8 % (11.6-17.2); WHITE BLOOD COUNT 16.2 TH/MM3 (4.0-11.0)
[2017-07-18 13:35] LABS: BICARBONATE 22.2 MEQ/L (21.0-32.0); CALCIUM 8.9 MG/DL (8.5-10.1); CREATININE 0.95 MG/DL (0.60-1.30)
[2017-07-18 16:00] VITALS: BP 115/56; PULSE 66; RESP 17; TEMP 96.9; O2SAT 96
[2017-07-18] MEDS ORDERED: SODIUM CHLORIDE 0.9% FLUSH 10 ML FLUSH IV FLUSH PRN (18:00)
--- NOTE | 2017-07-18 18:46 | RADRPT ---
EXAM DATE/TIME: 07/18/2017 17:57 This report includes an Addendum and supersedes previous reports for this exam. [facility] COMPARISON: CHEST SINGLE AP, March 26, 2017, 19:28. INDICATIONS : Post PICC line placement. MEDICAL HISTORY : Diabetes mellitus type II. Myocardial infarction. Coronary artery disease. SURGICAL HISTORY : Pacemaker. CABG. Cardiac stents. ENCOUNTER: Initial ACUITY: 1 day PAIN SCORE: 0/10 LOCATION: Bilateral chest FINDINGS: A single view of the chest demonstrates sternal wires, left subclavian multilead pacemaker in good po sition. There is a right-sided PICC line in place. The heart is slightly enlarged. Lungs are grossly clear. Numerous healed right-sided rib fractures unchanged. Osseous structures are intact. CONCLUSION: Lungs are grossly clear. Pacemaker in good position.. Adair Coy MD on July 18, 2017 at 18:42 Board Certified Radiologist. This report was verified electronically. ADDENDUM: The PICC line is in good position. Its tip overlies the SVC. Adair Coy MD on July 18, 2017 at 18:53 Board Certified Radiologist. This report was verified electronically.
[2017-07-19] MEDS ORDERED: SODIUM CHLORIDE 0.9% FLUSH 10 ML FLUSH IV FLUSH SCH (09:00)
[2017-07-19] MEDS ORDERED: PHARMACY ORDERED LAB ONE (20:45)
== END 2017-07-18 19:01 | disposition home health service (06) | DRG 617 ==
LOC: NEPC 10:35 → NEDA 13:38 → N04B 15:19 → N07B 07-16 16:28
PROVIDERS: ADMIT Family Medicine; ATTEND Family Medicine
PROC: 0Y6N0ZB Detachment at Left Foot, Partial 2nd Ray, Open Approach (ICD-10-PCS; 2017-07-13)
PROC: 0Y6N0Z9 Detachment at Left Foot, Partial 1st Ray, Open Approach (ICD-10-PCS; principal; 2017-07-13 16:40)
PROC: 04QL0ZZ Repair Left Femoral Artery, Open Approach (ICD-10-PCS; 2017-07-16)
PROC: 07BD0ZX Excision of Aortic Lymphatic, Open Approach, Diagnostic (ICD-10-PCS; 2017-07-16)
PROC: 30233N1 Transfusion of Nonautologous Red Blood Cells into Peripheral Vein, Percutaneous Approach (ICD-10-PCS; 2017-07-16)
PROC: 02HV33Z Insertion of Infusion Device into Superior Vena Cava, Percutaneous Approach (ICD-10-PCS; 2017-07-18)
DX: E11.69 Type 2 diabetes mellitus with other specified complication (principal); M86.9 Osteomyelitis, unspecified; E11.40 Type 2 diabetes mellitus with diabetic neuropathy, unspecified; E11.51 Type 2 diabetes mellitus with diabetic peripheral angiopathy without gangrene; L97.526 Non-pressure chronic ulcer of other part of left foot with bone involvement without evidence of necrosis; R59.9 Enlarged lymph nodes, unspecified; E11.621 Type 2 diabetes mellitus with foot ulcer; I50.9 Heart failure, unspecified; I72.4 Aneurysm of artery of lower extremity; D64.9 Anemia, unspecified; F32.9 Major depressive disorder, single episode, unspecified; Z79.84 Long term (current) use of oral hypoglycemic drugs; Z87.891 Personal history of nicotine dependence; Z95.1 Presence of aortocoronary bypass graft; Z95.5 Presence of coronary angioplasty implant and graft; Z95.810 Presence of automatic (implantable) cardiac defibrillator
CPT/HCPCS: 36430; 71045; 73620; 73630; 73720; 76937; 80048; 80053; 80202; 82948; 85014; 85018; 85025; 85027; 85652; 86140; 86850; 86900; 86901; 86920; 87015; 87040; 87070; 87077; 87102; 87116; 87186; 87205; 87206; 88304; 88305; 88311; 93926; 93971; 96374; A9579; J0131; J0330; J0692; J1100; J1170; J1644; J1815; J2175; J2270; J2370; J2405; J2720; J3010; J3370; J7040; J7120; P9016